=== PATIENT | female | born 1955 | race Caucasian/White ===

== ENCOUNTER 2016-11-06 08:52 | Inpatient (IN) ==
[2016-11-06 12:12] LABS: Basophils # 0.1 K/mcL (0.0-0.2); Basophils % 0.6 %; Eosinophils # 0.2 K/mcL (0.0-0.6); Eosinophils % 2.4 %; Hematocrit 48.8 % (35.3-44.9); Hemoglobin 15.3 g/dL (11.5-15.4); Immature Granulocytes % 0.5 % (0-4); Lymphocytes # 1.8 K/mcL (0.6-4.6); Lymphocytes % 19.8 %; Mean Corpuscular HGB Conc 31.4 g/dL (31.6-35.5); Mean Corpuscular Hemoglobin 29.5 pg (28.0-33.3); Mean Platelet Volume 10.9 fL (9.4-12.4); Monocytes # 0.5 K/mcL (0.0-1.3); Neutrophils # 6.7 K/mcL (1.6-8.9); Platelet Count 202 K/mcL (140-400); Red Blood Count 5.19 M/mcL (3.82-4.97); Red Cell Distribution Width 15.9 % (11.5-14.5); Segmented Neutrophils % 71.7 %
[2016-11-06 12:24] LABS: INR 1.2; Prothrombin Time 12.8 Seconds (9.4-12.1)
[2016-11-06 12:25] LABS: BUN/Creatinine Ratio 19 (6-26); Blood Urea Nitrogen 18 mg/dL (7-20); C-Reactive Protein 32 mg/L (Less than 5); Calcium 9.5 mg/dL (8.6-10.8); Carbon Dioxide 31 mEq/L (19-29); Chloride 107 mEq/L (98-109); Glucose 130 mg/dL (70-99); Osmolality,Calculated 302 (280-300); Potassium 4.7 mEq/L (3.5-4.5); Sodium 144 mEq/L (136-145); eGFR For African Americans > 60 (> 60); eGFR For Non-African Americans 59 (> 60)
[2016-11-06] MEDS ORDERED: Sennosides/Docusate Sodium TABLET PO PRN (12:54)
[2016-11-06] MEDS ORDERED: *HR* Dextrose 50 % in Water (Syg) 50 ML SYRINGE IVP PRN (12:56)
[2016-11-06] MEDS ORDERED: Dextrose Gel 15 GM PO PRN ×2 (12:56)
[2016-11-06] MEDS ORDERED: D5% in Water 1,000 ML IVC PRN (12:56)
--- NOTE | 2016-11-06 13:04 | Internal Medicine Consult Note ---
<Nafisa Davis M - Last Filed: 11/06/16 22:17> Date of Encounter: 11/06/16 Time of Encounter: 13:01 - Assessment and Plan (1) Right foot ulcer Current Visit: Yes Status: Acute Assessment and plan: Dr. Toro plans debridement tomorrow. management per primary service. Qualifiers: Non-pressure ulcer stage: with necrosis of muscle Qualified Code(s): L97.513 - Non-pressure chronic ulcer of other part of right foot with necrosis of muscle (2) Hypertension Current Visit: Yes Status: Acute Assessment and plan: Continue home doses of metoprolol and lasix. Qualifiers: Hypertension type: essential hypertension Qualified Code(s): I10 - Essential (primary) hypertension (3) Diabetes mellitus Current Visit: Yes Status: Chronic Assessment and plan: Contolled as evidenced by Hgb A1c of 7.3% on 10/16/16. Diabetic diet. check blood sugars ACHS sliding scale correction dose ACHS hypoglycemic protocol. 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 Heart has regular rate and rhythm on auscultation. EKG ordered for pre-op. Patient on Metoprolol for rate control and Xarelto for anticoagulation. Patient has been holding Xarelto since 11/04 in preparation for surgery. Continue home dose of metoprolol. Qualifiers: Atrial fibrillation type: paroxysmal Qualified Code(s): I48.0 - Paroxysmal atrial fibrillation (5) Obesity (BMI 30-39.9) Current Visit: No Status: Acute (6) Smoker Current Visit: Yes Status: Acute Assessment and plan: Patient smokes 1/2 PPD. Discussed and encouraged smoking cessation. Patient is not ready to quit at this time, but declined nicotine patch. Smoking cessation education ordered. Internal Medicine - CN: HPI - Data of Consult Patient: known to practice within the last 3 years Requesting Physician: Davie Toro, - Consult Narrative Reason for consult: management of diabetes and other medical conditions History of present illness: Ms. Rascon is a 61 year old female with diabetes, hypertension, hyperlipidemia , atrial fibrillation, congestive heart failure, history of CVA, and diabetic foot ulcer admitted today by Dr. Toro for planned debridement of her right diabetic foot ulcers. Dr. Toro consulted us to manage her diabetes and other medical problems. Patient denies any fever, chills or sweats, chest pain, palpitations, shortness of breath. Labs from today show white blood cell count is normal at 9.3. CRP and ESR are elevated consistent with her foot ulcers on exam, patient is alert and oriented, in no acute distress. Heart has regular rate and rhythm, lungs are clear bilaterally to auscultation, abdomen is soft and nontender. Right lower extremity has significant medial foot ulcer. Past Med Surg Social Fam HX - Past Medical History Medical history: arthritis, atrial fibrillation, CHF, CVA, DVT, diabetes, hyperlipidemia, hypertension, pulmonary embolus Psychiatric history: anxiety, depression - Past Surgical History Surgical History: other - Social History Smoking Status: Current every day smoker (17 pack year history) Packs per day: 0.5 Smokeless Tobacco Status: No Alcohol use: none Drug use: none - Family History Mother Family Member Ethnicity: Non- Twin of Family Member: Yes, Identical Living Status: Hx Family Cardiac Disorders: Yes Hx Family Respiratory Disorders: No Hx Family Cancer: Yes (aunt) Hx Family GI Disorders: Yes Hx Family Endocrine Disorder: Yes Hx Family Neurologic Disorders: Yes Hx Family HEENT Disorders: No Hx Family Autoimmune Disorders: No Father Living Status: Hx Family Cardiac Disorders: Yes Hx Family Endocrine Disorder: Yes (diabetes) Brother Hx Family Endocrine Disorder: Yes (diabetes) - Constitutional Constitutional: no chills, no night sweats, no weakness - EENT Eyes: no change in vision, no loss of vision, no photophobia Nose, mouth and throat: no dry mouth, no mouth pain, no nasal discharge, no sore throat - Cardiovascular Cardiovascular ROS IM: no chest pain, no diaphoresis, no dyspnea, no lightheadedness, no palpitations - Respiratory Respiratory: no cough, no dyspnea, no dyspnea on exertion, no wheezing, no chest congestion - Gastrointestinal Gastrointestinal: no abdominal pain, no diarrhea, no nausea, no vomiting - Genitourinary Genitourinary: no dysuria - Musculoskeletal Musculoskeletal ROS IM: no numbness, no tingling - Integumentary Integumentary IM: skin ulcer (right foot) - Neurological Neurological ROS: memory loss (residual from previous CVA), no confusion, no dizziness, no numbness, no tingling Internal Medicine - CN: Meds Gabapentin [Neurontin] 600 mg PO BID 02/02/15 [History] [place] Oil/[place]-3 Fatty Acids [Fish Oil 500 mg Softgel] 2 cap PO DAILY [History] Atorvastatin [Lipitor] 10 mg PO HS 07/18/15 [History] Furosemide [Lasix] 40 mg PO DAILY 07/18/15 [History] Sertraline [Zoloft] 100 mg PO DAILY 07/18/15 [History] Rivaroxaban [Xarelto] 20 mg PO DAILY 06/03/16 [History] Loratadine [Allergy Relief] 10 mg PO DAILY 06/17/16 [History] Mirtazapine [Remeron] 30 mg PO HS 06/17/16 [History] Albuterol Sulfate [Albuterol Inhaler] 2 puff IH Q6HR PRN 07/31/16 [History] Acetaminophen [Tylenol] 1,000 mg PO Q6HR PRN 11/06/16 [History] Arginine/Glutamine/Calcium Hmb [Nikita Packet] 1 packet PO DAILY 11/06/16 [ History] Ergocalciferol (VITAMIN D2) [Vitamin D2] 50,000 units PO QWEEK 11/06/16 [History ] Insulin LISPRO [Humalog Kwikpen U-100] 2 - 8 unit SQ TID MDD PER SLIDING SCALE 11/06/16 [History] Metoprolol [Lopressor] 100 mg PO BID 11/06/16 [History] Multivitamin,Stress Formula/Zn [Stress B with Zinc Tablet] 1 tab PO DAILY [History] Sennosides/Docusate Sodium [Senna-S Tablet] 1 tab PO BID PRN 11/06/16 [History] Allergies codeine Allergy (Verified 07/26/16 00:49) See Comments Unknown reaction. Paroxetine [From Paxil] Allergy (Verified 07/26/16 00:49) See Comments Unknown reaction. Penicillins Allergy (Verified 07/26/16 00:49) See Comments Unknown reaction. Internal Medicine - CN: Exam - Constitutional Vitals: Temp Pulse Resp BP Pulse Ox 97.9 F 88 17 147/81 95 11/06/16 10:34 11/06/16 10:34 11/06/16 10:34 11/06/16 10:34 11/06/16 10:34 General appearance IM: Present: A&O X 3, morbidly obese, pleasant, no acute distress - Head Head exam: Present: atraumatic, normocephalic - Eye Eye exam: Present: PERRL, conjuntiva pink, sclera anicteric Pupils: Present: PERRL - Neck Neck exam general surgery: Present: supple, trachea midline - Respiratory Respiratory exam: Present: CTAB. Absent: accessory muscle use, prolonged expiratory phase, rhonchi, stridor, wheezes - Cardiovascular Cardiovascular exam IM: Present: RRR, +S1, +S2. Absent: bradycardia, diastolic murmur, systolic murmur, tachycardia - GI/Abdominal GI/Abdominal exam IM: Present: normal bowel sounds, soft. Absent: tenderness, no peritoneal signs - Extremities Exam Extremities exam IM: Present: pedal edema Additional comments: large right foot ulcer on medial aspect and heel. - Neurological Exam Neurological exam: Present: CN II-XII intact, oriented X3, no focal deficits. Absent: facial droop, speech deficit Internal Medicine - CN: Reslt - Labs CBC & Chem 7: 11/06/16 12:02 11/06/16 12:02 Labs: All Lab Results (24 Hours) 11/06/16 11/06/16 11/06/16 Range/Units 12:02 12:02 12:02 WBC 9.3 (4.3-11.1) K/mcL RBC 5.19 H (3.82-4.97) M/mcL Hgb 15.3 (11.5-15.4) g/dL Hct 48.8 H (35.3-44.9) % MCV 94.0 (83.0-100.0) fL MCH 29.5 (28.0-33.3) pg MCHC 31.4 L (31.6-35.5) g/dL RDW 15.9 H (11.5-14.5) % Plt Count 202 (140-400) K/mcL MPV 10.9 (9.4-12.4) fL Immature Gran % 0.5 (0-4) % Seg Neutrophils % 71.7 % Lymphocytes % 19.8 % Monocytes % 5.0 % Eosinophils % 2.4 % Basophils % 0.6 % Neutrophils # 6.7 (1.6-8.9) K/mcL Lymphocytes # 1.8 (0.6-4.6) K/mcL Monocytes # 0.5 (0.0-1.3) K/mcL Eosinophils # 0.2 (0.0-0.6) K/mcL Basophils # 0.1 (0.0-0.2) K/mcL ESR (0-15) mm/hr PT 12.8 H (9.4-12.1) Seconds INR 1.2 Sodium 144 (136-145) mEq/L Potassium 4.7 H (3.5-4.5) mEq/L Chloride 107 (98-109) mEq/L Carbon Dioxide 31 H (19-29) mEq/L BUN 18 (7-20) mg/dL Creatinine 0.96 (0.57-1.11) mg/dL Est GFR ( Amer) > 60 (> 60) Est GFR (Non-Af Amer) 59 L (> 60) BUN/Creatinine Ratio 19 (6-26) Glucose 130 H (70-99) mg/dL Calculated Osmolality 302 H (280-300) Calcium 9.5 (8.6-10.8) mg/dL C-Reactive Protein 32 H (Less than 5) mg/L 11/06/16 Range/Units 12:02 WBC (4.3-11.1) K/mcL RBC (3.82-4.97) M/mcL Hgb (11.5-15.4) g/dL Hct (35.3-44.9) % MCV (83.0-100.0) fL MCH (28.0-33.3) pg MCHC (31.6-35.5) g/dL RDW (11.5-14.5) % Plt Count (140-400) K/mcL MPV (9.4-12.4) fL Immature Gran % (0-4) % Seg Neutrophils % % Lymphocytes % % Monocytes % % Eosinophils % % Basophils % % Neutrophils # (1.6-8.9) K/mcL Lymphocytes # (0.6-4.6) K/mcL Monocytes # (0.0-1.3) K/mcL Eosinophils # (0.0-0.6) K/mcL Basophils # (0.0-0.2) K/mcL ESR 53 H (0-15) mm/hr PT (9.4-12.1) Seconds INR Sodium (136-145) mEq/L Potassium (3.5-4.5) mEq/L Chloride (98-109) mEq/L Carbon Dioxide (19-29) mEq/L BUN (7-20) mg/dL Creatinine (0.57-1.11) mg/dL Est GFR ( Amer) (> 60) Est GFR (Non-Af Amer) (> 60) BUN/Creatinine Ratio (6-26) Glucose (70-99) mg/dL Calculated Osmolality (280-300) Calcium (8.6-10.8) mg/dL C-Reactive Protein (Less than 5) mg/L - ABG Interpretation ABG results: PT/INR, D-dimer PT 12.8 Seconds (9.4-12.1) H 11/06/16 12:02 Consult Discharge Plan - Plan Referrals: Robin Mays MD [Non-Partnered Physician] - 11/13/16 4:30 pm (The appointment will be in [place]. Thank you) <Hermes Martinez T - Last Filed: 11/07/16 07:25> Date of Encounter: 11/07/16 Internal Medicine - CN: HPI - Data of Consult Requesting Physician: Davie Toro, - Consult Narrative History of present illness: Ms. Rascon is a 61 year old female Internal Medicine - CN: Exam - Constitutional Vitals: Temp Pulse Resp BP Pulse Ox 98.2 F 80 16 155/88 92 11/07/16 03:30 11/07/16 03:30 11/07/16 03:30 11/07/16 03:30 11/07/16 03:30 Internal Medicine - CN: Reslt - Labs CBC & Chem 7: 11/06/16 12:02 11/06/16 12:02 Labs: Short CBC 11/06/16 Range/Units 12:02 WBC 9.3 (4.3-11.1) K/mcL Hgb 15.3 (11.5-15.4) g/dL Hct 48.8 H (35.3-44.9) % Plt Count 202 (140-400) K/mcL Neutrophils # 6.7 (1.6-8.9) K/mcL BMP 11/06/16 12:02 Sodium 144 Potassium 4.7 H Chloride 107 Carbon Dioxide 31 H BUN 18 Creatinine 0.96 Glucose 130 H Calcium 9.5 - ABG Interpretation ABG results: PT/INR, D-dimer PT 12.8 Seconds (9.4-12.1) H 11/06/16 12:02 - Attending Attestation Reviewed and discussed with KENDELL Davis Agree with plan
--- NOTE | 2016-11-06 13:20 | Infectious Disease Consult ---
Date of Encounter: 11/06/16 Time of Encounter: 13:16 Assessment and Plan (1) Osteomyelitis Status: Acute Assessment and plan: Location: Right calcaneus. X-ray completed 10/16/16 shows suspected early osteomyelitis. Causative organism E. coli per wound culture obtained 10/16/16, but concern for polymicrobial infection. The patient has been on IV Rocephin at the [facility] since 10/23/16. Clinically, the wound does not appear infected, but apparently there has been some regression of the wound. Dr. Toro plans to take the patient to the OR tomorrow for I & D with possible skin graft placement. Check ESR and CRP. Get blood cultures x 2 sets now. Will defer imaging orders to the podiatry team. Continue wound care and activity restrictions per the podiatry team. The patient does not appear toxic and she has no SIRS criteria. Hold antibiotics until after surgery to get cultures. The patient has already been on IV Rocephin for two weeks, so I am concerned that cultures will not grow anything. Start Vancomycin IV after surgery. Pharmacy to dose. Goal trough approximately 15. Start Cefepime 2 grams IV Q12H after surgery. Duration of treatment depends on the clinical picture. Monitor renal function and for drug toxicity and dose-adjust antibiotics. If the patient becomes febrile or decompensates, start broad spectrum antibiotics. 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 Apparently, the patient was recently recommended to have right BKA due to extent of the ulcers, but patient declined. The patient states she had arterial blood flow testing at [place], which was normal. Will request these records as well operative reports, cultures, etc. Continue wound care as outlined per the podiatry team. Qualifiers: Non-pressure ulcer stage: with necrosis of muscle Qualified Code(s): L97.513 - Non-pressure chronic ulcer of other part of right foot with necrosis of muscle (3) Obesity (BMI 30-39.9) Status: Acute (4) Diabetes mellitus Status: Chronic Assessment and plan: HgbA1c 7.3 on 10/16/16. Recommend aggressive glucose monitoring and control to promote wound healing and prevent re-infection. Qualifiers: Diabetes mellitus type: type 2 Diabetes mellitus complication status: with skin complications Diabetes mellitus complication detail: with foot ulcer Diabetes mellitus fci insulin use: with intermediate frame tender use Qualified Code(s) : E11.621 - Type 2 diabetes mellitus with foot ulcer; L97.509 - Non-pressure chronic ulcer of other part of unspecified foot with unspecified severity; Z79.4 - half-way (current) use of insulin (5) Atrial fibrillation Status: Chronic Qualifiers: Atrial fibrillation type: paroxysmal Qualified Code(s): I48.0 - Paroxysmal atrial fibrillation Infectious Disease HPI - Data of Consult Patient: new to practice Consult date: 11/06/16 Requesting Physician: Davie Toro, Primary Care Provider: PCP NO - Consult Narrative Reason for consult: Right foot DFU History of present illness: Ms. Rascon is a 61 year old female with a past medical history of diabetes, nephritis, DVT, hyperlipidemia, hypertension, pulmonary embolus, anxiety, and depression. The patient was admitted to the hospital November 06 for right foot diabetic foot ulcers. We are consulted November 06 for further evaluation and treatment recommendations regarding right foot ulcers. Patient's a 61-year-old female with past medical history as stated above. The patient states that she developed an ulcer to the right great toe back in July and subsequently developed gangrene. She states she was evaluated at [facility] and underwent a right great toe amputation. She states since then, she has developed worsening of the surgical site and nonhealing and developed an ulcer to the right heel. She states she's had 2 subsequent debridements at [facility] with antibiotic therapy, but the wounds continue to regress and will not heal. She states at her last visit at [place], they recommended a right BKA and she was not agreeable to this so she sought out a second opinion. She was first seen by Dr. Boo in the [place] wound clinic and subsequent follow-up with Dr. Toro last week. An x-ray completed on October 30 showed suspected early osteomyelitis of the left calcaneus. The patient was directed to come back to the hospital today for direct admission and surgery tomorrow. A wound culture obtained from the wound clinic on October 16 was positive for Escherichia coli and the patient was started on IV Rocephin on 10/23/16. She currently stays at a local extended care facility. She is not currently been started on any antibiotics since being admitted to the hospital. We've asked to evaluate and make further recommendations. During my exam today, the patient states she has been afebrile and denies any chills or rigors. She denies any headache or neck pain. She denies any chest pain, shortness of breath, or cough. She denies any nausea, vomiting, diarrhea, or constipation. She denies any pain in the affected foot. She states that there is minimal drainage. She denies abdominal pain or appetite changes. She denies any urinary complaints. She states she is unsure what her blood sugars have been running at the [facility]. He does tell me that she had arterial blood flow studies completed back in July at [facility] and was told they were normal. CC: Davie Toro, Past Med Surg Social Fam HX - Past Medical History Attestation: Yes The following information was validated with the patient. Source: patient, old records reviewed, nursing notes reviewed Medical history: arthritis, DVT, diabetes, hyperlipidemia, hypertension, pulmonary embolus Psychiatric history: anxiety, depression - Past Surgical History Surgical History: other (Left foot TMA secondary to infection) - Social History Smoking Status: Current every day smoker Smokeless Tobacco Status: No Alcohol use: none Drug use: none - Family History Mother Family Member Ethnicity: Non- Twin of Family Member: Yes, Identical Living Status: Hx Family Cardiac Disorders: Yes Hx Family Respiratory Disorders: No Hx Family Cancer: Yes (aunt) Hx Family GI Disorders: Yes Hx Family Endocrine Disorder: Yes Hx Family Neurologic Disorders: Yes Hx Family HEENT Disorders: No Hx Family Autoimmune Disorders: No Father Living Status: Hx Family Cardiac Disorders: Yes Hx Family Endocrine Disorder: Yes (diabetes) Brother Hx Family Endocrine Disorder: Yes (diabetes) Infectious Disease-CN:Meds Gabapentin [Neurontin] 600 mg PO BID 02/02/15 [History] [place] Oil/[place]-3 Fatty Acids [Fish Oil 500 mg Softgel] 2 cap PO DAILY [History] Atorvastatin [Lipitor] 10 mg PO HS 07/18/15 [History] Furosemide [Lasix] 40 mg PO DAILY 07/18/15 [History] Sertraline [Zoloft] 100 mg PO DAILY 07/18/15 [History] Rivaroxaban [Xarelto] 20 mg PO DAILY 06/03/16 [History] Loratadine [Allergy Relief] 10 mg PO DAILY 06/17/16 [History] Mirtazapine [Remeron] 30 mg PO HS 06/17/16 [History] Albuterol Sulfate [Albuterol Inhaler] 2 puff IH Q6HR PRN 07/31/16 [History] Acetaminophen [Tylenol] 1,000 mg PO Q6HR PRN 11/06/16 [History] Arginine/Glutamine/Calcium Hmb [Nikita Packet] 1 packet PO DAILY 11/06/16 [ History] Ergocalciferol (VITAMIN D2) [Vitamin D2] 50,000 units PO QWEEK 11/06/16 [History ] Insulin LISPRO [Humalog Kwikpen U-100] 2 - 8 unit SQ TID MDD PER SLIDING SCALE 11/06/16 [History] Metoprolol [Lopressor] 100 mg PO BID 11/06/16 [History] Multivitamin,Stress Formula/Zn [Stress B with Zinc Tablet] 1 tab PO DAILY [History] Sennosides/Docusate Sodium [Senna-S Tablet] 1 tab PO BID PRN 11/06/16 [History] Allergies codeine Allergy (Verified 07/26/16 00:49) See Comments Unknown reaction. Paroxetine [From Paxil] Allergy (Verified 07/26/16 00:49) See Comments Unknown reaction. Penicillins Allergy (Verified 07/26/16 00:49) See Comments Unknown reaction. All systems: reviewed and no additional remarkable complaints except as stated Exam - Constitutional Vitals: Temp Pulse Resp BP Pulse Ox 97.9 F 88 17 147/81 95 11/06/16 10:34 11/06/16 10:34 11/06/16 10:34 11/06/16 10:34 11/06/16 10:34 General appearance: cooperative, no acute distress, obese - Head Head exam: Present: atraumatic, normal inspection, normocephalic - Eye Eye exam: Present: EOMI, normal appearance, PERRL Pupils: Present: normal accommodation - ENT ENT exam: Present: mucous membranes moist - Neck Neck exam: Present: normal inspection - Respiratory Respiratory exam: Present: CTAB. Absent: rales, respiratory distress, rhonchi, wheezes - Cardiovascular Cardiovascular exam: Present: irregular rhythm. Absent: tachycardia - GI/Abdominal GI/Abdominal exam: Present: distended (obese), normal bowel sounds, soft. Absent: tenderness - Extremities Exam Extremities exam: Present: pedal edema (1+ RLE). Absent: joint swelling, tenderness Additional comments: Ulcer noted to the right great toe site 9cm x 3cm x 1cm deep with 20% fibrin and 80% granulation tissue. Ulcer noted to the medial plantar aspect of the right foot 0.5cm x 0.5cm x 0.5cm deep with approximately 80% slough and 20% granulation. Ulcer noted to the right heel 5cm x 6cm x 1.5cm deep with 10% slough and 90% granulation tissue. Serous drainage noted from all wounds. No purulence or erythema noted. No tenderness noted. No foul odor noted. - Neurological Exam Neurological exam: Present: alert, oriented X3, no focal deficits - Psychiatric Psychiatric exam: Present: normal affect, normal mood - Skin Skin exam: Present: dry, intact, normal color, warm - Additional findings Additional findings: PICC line noted to the RUE with transparent dressing C/D/I. Infectious Disease CN: Results - Labs CBC & Chem 7: 11/06/16 12:02 11/06/16 12:02 Consult Discharge Plan - Plan Referrals: Robin Mays MD [Non-Partnered Physician] - 11/13/16 4:30 pm (The appointment will be in [place]. Thank you) - Attending Attestation I examined this patient and my medical decision-making was reviewed with the JDE DEVELOPER/PA/Advanced Practice Nurse/Resident Physician. I agree with the documented findings, disposition and treatment plan as described except to the extent set forth below. Jo Ann addendum to report dictated by Sulma Otto CNP. Please refer to Sulma delgado note for full details. Patient is a 61-year-old woman direct admitted by Dr. Toro for nonhealing diabetic foot ulcer and concern for deeper infection. Apparently patient has been having this nonhealing wound ulcer for quite some time area patient was seen at an outlying facility and was told she needed an amputation. Patient followed up with Dr. Toro who is trying to salvage her foot since she really hasnt transmit AMPUTATION other. Patient was started on Rocephin as an outpatient. Previous wound culture on 10/16/16 was positive for Escherichia coli . X-ray on the patient showed possible early osteomyelitis. Patient also has a history of MRSA back in 2014. An x-ray of the foot was done on 10/16/2016 which revealed large soft tissue ulcer involving the plantar aspect of the heel with suspected early osteomyelitis of the underlying calcaneus. A shunt was admitted for surgical intervention and aggressive I&D. At this point patient appears comfortable laying in bed and does not appear toxic. Vital signs are stable with no surface criteria. I recommend stopping all antibiotics and observing. Await to see what we find intraoperatively tomorrow and hopefully get intraoperatively cultures. In the meantime check baseline labs including inflammatory markers prior to surgery. We ll continue to follow closely.
[2016-11-06] MEDS: Insulin LISPRO 300 UNITS/3 ML VIAL SQ SCH ×2 (17:03→22:21)
--- NOTE | 2016-11-06 17:30 | Podiatry History & Physical ---
History of Present Illness HPI: Ms. Rascon is a 61 year old female admitted today per Dr. Toro after visit at wound care clinic. Patient has known history of diabetes, hypertension, hyperlipidemia, atrial fibrillation, congestive heart failure, history of CVA, and diabetic foot ulcer. Patient was treated at [facility] for debridement of non healing diabetic ulcers. They recommended a right BKA at that time. Patient left [place] at that time and has been in long-term care. Patient is now with Dr. Toro in the wound care clinic after seeking second opinion. She was admitted today with plans to take patient to OR tomorrow for wound debridement of right foot ulcers. Patient denies any pain at this time. Patient states she continues to smoke every 2 hours at halfway. Patient denies any fevers, chills, nausea vomiting, or flulike symptoms. Labs show normal white count at 9.3 CRP and ESR are elevated consistent with her foot ulcers. Alert and oriented. Patient has foot ulceration to medial aspect of right foot as well as right heel. She is status post amputation of toe #1 right foot. Patient has minimal sensation to right foot. Patient states wound looks slightly better than what it began. Patient is noncompliant with smoking cessation. Glucose is not well controlled All Systems Reviewed: A 10-system review of systems was performed and is negative for pertinent findings except as documented above in the HPI. Past Med Surg Social Fam HX - Past Medical History Medical history: arthritis, DVT, diabetes, hyperlipidemia, hypertension, pulmonary embolus Psychiatric history: anxiety, depression - Past Surgical History Surgical History: other (Left foot TMA secondary to infection) - Social History Smoking Status: Current every day smoker Packs per day: 0.5 Smokeless Tobacco Status: No Alcohol use: none Drug use: none - Family History Mother Family Member Ethnicity: Non- Twin of Family Member: Yes, Identical Living Status: Hx Family Cardiac Disorders: Yes Hx Family Respiratory Disorders: No Hx Family Cancer: Yes (aunt) Hx Family GI Disorders: Yes Hx Family Endocrine Disorder: Yes Hx Family Neurologic Disorders: Yes Hx Family HEENT Disorders: No Hx Family Autoimmune Disorders: No Father Living Status: Hx Family Cardiac Disorders: Yes Hx Family Endocrine Disorder: Yes (diabetes) Brother Hx Family Endocrine Disorder: Yes (diabetes) Medications and Allergies Gabapentin [Neurontin] 600 mg PO BID 02/02/15 [History] [place] Oil/[place]-3 Fatty Acids [Fish Oil 500 mg Softgel] 2 cap PO DAILY [History] Atorvastatin [Lipitor] 10 mg PO HS 07/18/15 [History] Furosemide [Lasix] 40 mg PO DAILY 07/18/15 [History] Sertraline [Zoloft] 100 mg PO DAILY 07/18/15 [History] Rivaroxaban [Xarelto] 20 mg PO DAILY 06/03/16 [History] Loratadine [Allergy Relief] 10 mg PO DAILY 06/17/16 [History] Mirtazapine [Remeron] 30 mg PO HS 06/17/16 [History] Albuterol Sulfate [Albuterol Inhaler] 2 puff IH Q6HR PRN 07/31/16 [History] Acetaminophen [Tylenol] 1,000 mg PO Q6HR PRN 11/06/16 [History] Arginine/Glutamine/Calcium Hmb [Nikita Packet] 1 packet PO DAILY 11/06/16 [ History] Ergocalciferol (VITAMIN D2) [Vitamin D2] 50,000 units PO QWEEK 11/06/16 [History ] Insulin LISPRO [Humalog Kwikpen U-100] 2 - 8 unit SQ TID MDD PER SLIDING SCALE 11/06/16 [History] Metoprolol [Lopressor] 100 mg PO BID 11/06/16 [History] Multivitamin,Stress Formula/Zn [Stress B with Zinc Tablet] 1 tab PO DAILY [History] Sennosides/Docusate Sodium [Senna-S Tablet] 1 tab PO BID PRN 11/06/16 [History] Allergies codeine Allergy (Verified 07/26/16 00:49) See Comments Unknown reaction. Paroxetine [From Paxil] Allergy (Verified 07/26/16 00:49) See Comments Unknown reaction. Penicillins Allergy (Verified 07/26/16 00:49) See Comments Unknown reaction. Physical Exam - Constitutional Vitals: Temp Pulse Resp BP Pulse Ox 98.5 F 75 17 147/88 99 11/06/16 15:29 11/06/16 15:29 11/06/16 15:29 11/06/16 15:29 11/06/16 15:29 General appearance: cooperative, no acute distress, obese Exam: General Examination: CONSTITUTIONAL: Alert, oriented, in no acute distress, non-toxic. EXTREMITIES: CFT 4-5 seconds. Edema +1 and pedal pulses non palpable SKIN: Skin with decreased turgor, decreased subcutaneous tissue, skin thin and shiny with trophic changes associated with comorbidities as described in history.. NEUROLOGIC: Minimal sensation to light touch- loss of protective sensation Wound #1 right great toe diabetic full-thickness. wound beefy red in appearance and yellow slough tissue is noted. Surrounding temperature is warm scant amount of serosanguineous drainage noted, no odor. Wound measures 9 cm in length was 3 cm in width and 1.2 cm in depth. there is a wound to the right medial plantar aspect of right foot diabetic full thickness wound yellow fibrous slough tissue noted. minimal granulation tissue. warm. There is a small amount of serous drainage. There is no odor. Wound measures 0.5 cm in length 0.5 cm in width and 0.2 cm in depth. There is a wound to the medial right heel. This is a diabetic full thickness wound. There is presence of beefy red granulation tissue as well as yellow fibrous slough. No odor. Scant amount of serosanguineous drainage. Wound measures 5.5 cm in length by 0.8 cm and with an 1.5 cm in depth there is wound undermining noted at 6 to 7:00 it measuring about 1.7 cm. There is no extensive edema or erythema surrounding wounds. - Expanded Lower Extremities Exam Foot/Toe exam: Present: amputation 1 - wound #1 2 - amputation of digit 1 - wound #2 Results - Labs Result Diagrams: 11/06/16 12:02 11/06/16 12:02 Labs: Abnormal lab results RBC 5.19 M/mcL (3.82-4.97) H 11/06/16 12:02 Hct 48.8 % (35.3-44.9) H 11/06/16 12:02 MCHC 31.4 g/dL (31.6-35.5) L 11/06/16 12:02 RDW 15.9 % (11.5-14.5) H 11/06/16 12:02 ESR 53 mm/hr (0-15) H 11/06/16 12:02 PT 12.8 Seconds (9.4-12.1) H 11/06/16 12:02 Potassium 4.7 mEq/L (3.5-4.5) H 11/06/16 12:02 Carbon Dioxide 31 mEq/L (19-29) H 11/06/16 12:02 Est GFR (Non-Af Amer) 59 (> 60) L 11/06/16 12:02 Glucose 130 mg/dL (70-99) H 11/06/16 12:02 Calculated Osmolality 302 (280-300) H 11/06/16 12:02 C-Reactive Protein 32 mg/L (Less than 5) H 11/06/16 12:02 H & H 11/06/16 Range/Units 12:02 Hgb 15.3 (11.5-15.4) g/dL Hct 48.8 H (35.3-44.9) % All other labs normal. Assessment and Plan (1) Right foot ulcer Current visit: Yes Status: Acute Plan for I&D and OR tomorrow. Qualifiers: Non-pressure ulcer stage: with necrosis of muscle Qualified Code(s): L97.513 - Non-pressure chronic ulcer of other part of right foot with necrosis of muscle (2) Smoker Current visit: Yes Status: Acute Medical management. Encouraged smoke cessation. (3) Atrial fibrillation Current visit: Yes Status: Chronic medical Management Qualifiers: Atrial fibrillation type: paroxysmal Qualified Code(s): I48.0 - Paroxysmal atrial fibrillation (4) Diabetes mellitus Current visit: Yes Status: Chronic Medical management Qualifiers: Diabetes mellitus type: type 2 Diabetes mellitus complication status: with skin complications Diabetes mellitus complication detail: with foot ulcer Diabetes mellitus superintendent terminal insulin use: with superintendent terminal use Qualified Code(s) : E11.621 - Type 2 diabetes mellitus with foot ulcer; L97.509 - Non-pressure chronic ulcer of other part of unspecified foot with unspecified severity; Z79.4 - prison (current) use of insulin (5) Cellulitis and abscess of foot Current visit: No Status: Acute Admitted and assessed at bedside today Will plan to take to OR tomorrow with for active wound debridement Recent CHIN show : Right: Able to obtain a right ankle brachial index due to noncompressible vessels. Unable to obtain a Doppler waveform and pressure of right DP and right great toe due to open wounds Left 1.17 Consult to vascular for evaluation prior to surgery. Spoke with the [facility] at 1730. We will see in a.m. Patient to be nothing by mouth after midnight Please place., Adaptic 4 x 4's and Kerlix to wound for protection Consult to internal medicine for medical management. Consult to infectious disease for management of IV antibiotic therapy. Patient has been on outpatient Rocephin therapy. ID currently recommended to hold antibiotics until after surgery.
--- NOTE | 2016-11-06 18:44 | Vascular/Endovasc Consult Note ---
Date of Encounter: 11/06/16 Time of Encounter: 18:00 Assessment and Plan (1) Atherosclerosis of [place] artery of both lower extremities with bilateral ulceration Current Visit: Yes Status: Chronic The pathophsyiology and natural history of peripheral vascular disease was discussed with the patient and all questions were answered. The patient reports that she has had chronic foot ulcerations. She has been treated at the wound center by Dr. Boo and Dr. Toro. The patient reportedly has noncompressible tibial vessels likely due to diabetes. She has a diminished pulse exam. She has a large right medial forefoot and right ulcer. There is no purulanece, fluctuance or significant erythema present. Angiography with possible intervention has been recommended. The risks, benefits and alternatives were discussed and all questions were answered. She expresed understanding and wishes to proceed. Given the extent of her ulcerations, she was advised that limb salvage may not be possible and that amputation may be required. She expressed understanding and states that she has consider it as a possibility. Qualifiers: Lower extremity ulceration location: other part of foot Qualified Code(s): I70.235 - Atherosclerosis of [place] arteries of right leg with ulceration of other part of foot; I70.245 - Atherosclerosis of [place] arteries of left leg with ulceration of other part of foot (2) Tobacco abuse Current Visit: Yes Status: Chronic She was counseled regarding smoking cessation. She was informed that continued smoking will likely result in limb loss. - History of Present Illness Consult date: 11/06/16 Requesting physician: Lisa Espitia Consult reason: Peripheral vascular disease Chief complaint: left foot chronic ulcerations History of present illness: Ms. Rascon is a 61 year old female with a history of hypertension, diabetes, atrial fibrillation and tobacco abuse. She reports a long history of peripheral vascular disease with ulceration. The patient reports that she has been seen in the wound center by Dr. Boo and Dr. Toro for management of her chronic ulcers. She has required multiple debridements. She reports that she was admitted to [facility] recently and an amputation was recommended. She reprots that since her discharge, her foot has looked and felt better. She reports extensive debridement and persistent ulceration. She currently has large ulcer on her right medial forefoot and on her right ankle. Due to the degree of disease, vascular surgery was consulted for further evaluation. She patient currently denies rest pain. She denies fevers or chills. She denies chest pain or shortness of breath. Past Med Surg Social Fam HX - Past Medical History Medical history: arthritis, DVT, diabetes, hyperlipidemia, hypertension, pulmonary embolus Psychiatric history: anxiety, depression - Past Surgical History Surgical History: other (Left foot TMA secondary to infection) - Social History Smoking Status: Current every day smoker Packs per day: 0.5 Smokeless Tobacco Status: No Alcohol use: none Drug use: none - Family History Mother Family Member Ethnicity: Non- Twin of Family Member: Yes, Identical Living Status: Hx Family Cardiac Disorders: Yes Hx Family Respiratory Disorders: No Hx Family Cancer: Yes (aunt) Hx Family GI Disorders: Yes Hx Family Endocrine Disorder: Yes Hx Family Neurologic Disorders: Yes Hx Family HEENT Disorders: No Hx Family Autoimmune Disorders: No Father Living Status: Hx Family Cardiac Disorders: Yes Hx Family Endocrine Disorder: Yes (diabetes) Brother Hx Family Endocrine Disorder: Yes (diabetes) Medications and Allergies Gabapentin [Neurontin] 600 mg PO BID 02/02/15 [History] [place] Oil/[place]-3 Fatty Acids [Fish Oil 500 mg Softgel] 2 cap PO DAILY [History] Atorvastatin [Lipitor] 10 mg PO HS 07/18/15 [History] Furosemide [Lasix] 40 mg PO DAILY 07/18/15 [History] Sertraline [Zoloft] 100 mg PO DAILY 07/18/15 [History] Rivaroxaban [Xarelto] 20 mg PO DAILY 06/03/16 [History] Loratadine [Allergy Relief] 10 mg PO DAILY 06/17/16 [History] Mirtazapine [Remeron] 30 mg PO HS 06/17/16 [History] Albuterol Sulfate [Albuterol Inhaler] 2 puff IH Q6HR PRN 07/31/16 [History] Acetaminophen [Tylenol] 1,000 mg PO Q6HR PRN 11/06/16 [History] Arginine/Glutamine/Calcium Hmb [Nikita Packet] 1 packet PO DAILY 11/06/16 [ History] Ergocalciferol (VITAMIN D2) [Vitamin D2] 50,000 units PO QWEEK 11/06/16 [History ] Insulin LISPRO [Humalog Kwikpen U-100] 2 - 8 unit SQ TID MDD PER SLIDING SCALE 11/06/16 [History] Metoprolol [Lopressor] 100 mg PO BID 11/06/16 [History] Multivitamin,Stress Formula/Zn [Stress B with Zinc Tablet] 1 tab PO DAILY [History] Sennosides/Docusate Sodium [Senna-S Tablet] 1 tab PO BID PRN 11/06/16 [History] Allergies codeine Allergy (Verified 07/26/16 00:49) See Comments Unknown reaction. Paroxetine [From Paxil] Allergy (Verified 07/26/16 00:49) See Comments Unknown reaction. Penicillins Allergy (Verified 07/26/16 00:49) See Comments Unknown reaction. All Systems Review: A 10-system review of systems was performed and is negative for pertinent findings except as documented above in the HPI. - Constitutional Constitutional: no chills, no fever(s) - Cardiovascular Cardiovascular: no chest pain at rest, no chest pain with exertion, no dyspnea at rest, no dyspnea on exertion Exam Vital Signs, Last 4 Hours Temp Pulse Resp BP Pulse Ox 11/06/16 15:29 98.5 F 75 17 147/88 99 General: Present: Conversant, No Apparent Distress HEENT: Present: Atraumatic, Normocephaly, Trachea midline, Pupils equal Neck: Absent: JVD, Lymphadenopathy, Left Carotid bruit, Right Carotid bruit Cardiac: Present: No Murmur, Irregular Rhythm Lungs: Present: Normal Breath Sounds, No Wheeze, Rales, Rhonchi Neuro: Present: Alert and responsive, No focal deficits noted, Motor nerves grossly intact, Sensory nerves grossly intact Abdomen: Present: Soft, Non-tender. Absent: Masses Vascular: Present: Pulse, absent (bilateral feet), Edema (trace bilateral lower extremity), Amputation(s) (right great toe). Absent: Cyanosis Skin: Present: Wound/ulcer(s) (right medial forefoot and right heel, left ankle) Consult Discharge Plan - Plan Referrals: Robin Mays MD [Non-Partnered Physician] - 11/13/16 4:30 pm (The appointment will be in [place]. Thank you)
[2016-11-06] MEDS: Gabapentin 300 MG CAPSULE PO SCH (18:55)
[2016-11-06] MEDS ORDERED: Gabapentin 300 MG CAPSULE PO SCH (21:00)
[2016-11-06] MEDS: Mirtazapine 15 MG TABLET PO SCH (22:21)
[2016-11-07] MEDS: Insulin LISPRO 300 UNITS/3 ML VIAL SQ SCH ×4 (06:55→20:50)
[2016-11-07] MEDS: Loratadine 10 MG TABLET PO SCH (08:45)
[2016-11-07] MEDS: Gabapentin 300 MG CAPSULE PO SCH ×2 (08:45→20:50)
[2016-11-07] MEDS: Furosemide 40 MG TABLET PO SCH (08:45)
[2016-11-07] MEDS ORDERED: (Salmon Oil/Omega-3 Fatty Acids [Fish Oil 500 Mg Soft PO SCH (09:00)
[2016-11-07] MEDS: Insulin DETEMIR 100 UNIT/ML X5UNITS SQ SCH ×2 (12:20→20:49)
[2016-11-07] MEDS: Multivit/Ca/Min/Fe/FA 1 TAB TABLET PO SCH (12:59)
[2016-11-07] MEDS ORDERED: *HR* Heparin 10,000 UNIT/10 ML VIAL ONE (13:07)
[2016-11-07] MEDS ORDERED: Heparin 1,000 UNITS/500 mL NS 500 ML ONE (13:07)
[2016-11-07] MEDS ORDERED: 0.9 % Sodium Chloride 1,000 ML ONE ×2 (13:07→13:31)
[2016-11-07] MEDS ORDERED: *HR* FentaNYL (PF) 100 MCG/2 ML VIAL ONE ×2 (13:31→13:32)
[2016-11-07] MEDS ORDERED: *HR* Midazolam HCl 2 MG/2 ML VIAL ONE ×2 (13:31→13:32)
[2016-11-07] MEDS ORDERED: *HR* Propofol 200 MG/20 ML VIAL IVP ONE (13:32)
[2016-11-07] MEDS ORDERED: Lidocaine -MPF 2% 2 ML VIAL ONE (13:32)
--- NOTE | 2016-11-07 13:43 | Pre-Sedation Evaluation ---
Pre-sedation evaluation - Pre-sedation checklist Date of procedure: 11/07/16 Procedure: arterial studies Recent Vitals: Last Vital Signs Temp 98.4 F 11/07/16 11:00 Pulse 76 11/07/16 11:00 Resp 17 11/07/16 11:00 BP 113/73 11/07/16 11:00 Pulse Ox 95 11/07/16 11:00 Previous reaction to sedatives/anesthetics: No Dietary Status: NPO after Midnight Dentition: No loose teeth or bridges ASA Classification *see protocol: CLASS III-Severe systemic disease Plan of Care: Pt appropriate candidate for procedure/moderate/conscious sedation , Risks/benefits of procedure/sedation discussed w/ patient/family
--- NOTE | 2016-11-07 15:22 | Procedure Note ---
Date of procedure: 11/07/16 Pre-op diagnosis: Peripheral vascular disease with ulceration Post-op diagnosis: same Procedure: Angiogram with right posterior tibial artery angioplasty with 3 x 20mm balloon via 4 bengali sheath. Anesthesia: local, IV sedation (moderate conscious sedation) Surgeon: Carlitos Kat Estimated blood loss (cc): 1 Pathology: none sent Condition: stable (No complications) Disposition: floor
--- NOTE | 2016-11-07 16:18 | Internal Med Progress Note ---
Date of Encounter: 11/07/16 Time of Encounter: 09:00 - Assessment and plan (1) Osteomyelitis Current Visit: Yes Status: Acute Assessment and plan: Possibly subacute osteomyelitis of right calcaneus. Plan for surgical debridement, incision and drainage per primary team. Infectious diseases on board. Recommend no antibiotics until foot surgery, IV vancomycin and cefepime to be initiated after operative cultures are obtained. Follow-up blood cultures. Supportive care. Qualifiers: Osteomyelitis type: other Osteomyelitis location: foot Laterality: right Qualified Code(s): M86.8X7 - Other osteomyelitis, ankle and foot (2) Atherosclerosis of [place] artery of both lower extremities with bilateral ulceration Current Visit: Yes Status: Chronic Assessment and plan: Patient is known to have peripheral arterial disease in bilateral lower extremities. Vascular surgery consulted, possible plan for angiogram and angioplasty of right lower extremity. Qualifiers: Lower extremity ulceration location: other part of foot Qualified Code(s): I70.235 - Atherosclerosis of [place] arteries of right leg with ulceration of other part of foot; I70.245 - Atherosclerosis of [place] arteries of left leg with ulceration of other part of foot (3) Chronic kidney disease Current Visit: Yes Status: Chronic Assessment and plan: Patient possibly has chronic kidney disease secondary to diabetic nephropathy. Review of previous labs show serum creatinine around 1.2. Currently at baseline. Continue to monitor closely and dose antibiotics according to current creatinine clearance. Qualifiers: Chronic kidney disease stage: stage 3 (moderate) Qualified Code(s): N18.3 - Chronic kidney disease, stage 3 (moderate) (4) Diabetes mellitus Current Visit: Yes Status: Chronic Assessment and plan: Noted to be well controlled with hemoglobin A1c 7.3% continue Accu-Chek blood glucose monitoring with basal bolus insulin regimen. Diabetic diet after surgery. 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 Noted to be on long-term anticoagulation with Pradaxa, currently held in anticipation of foot surgery. We will restart after the procedure. Qualifiers: Atrial fibrillation type: paroxysmal Qualified Code(s): I48.0 - Paroxysmal atrial fibrillation (6) Chronic venous hypertension (idiopathic) with ulcer of left lower extremity Current Visit: Yes Status: Chronic (7) Hypertension Current Visit: Yes Status: Chronic Assessment and plan: Blood pressure noted to be well controlled. Continue home medications. Qualifiers: Hypertension type: essential hypertension Qualified Code(s): I10 - Essential (primary) hypertension (8) Tobacco abuse Current Visit: Yes Status: Chronic - Subjective Interval history: Reports feeling well. Has been having issues with right foot wounds for the last few months, had multiple admissions at the [facility] in [place] and has been discharged to nursing facility last month. She is awaiting debridement of right foot ulcer by podiatry. Denies pain, dyspnea, fever/chills , nausea or vomiting. - Constitutional Vitals: Temp Pulse Resp BP Pulse Ox 98.4 F 76 17 113/73 95 11/07/16 11:00 11/07/16 11:00 11/07/16 11:00 11/07/16 11:00 11/07/16 11:00 General appearance: Present: A&O X 3, answers questions appropriately - Respiratory Respiratory exam: Present: CTAB. Absent: accessory muscle use, rales, rhonchi, wheezes - Cardiovascular Cardiovascular exam: Present: RRR, +S1, +S2. Absent: diastolic murmur, gallop, rubs, systolic murmur - GI/Abdominal GI/Abdominal exam: Present: normal bowel sounds, soft, no peritoneal signs. Absent: distended, tenderness - Extremities Exam Extremities exam: Present: warm, radial pulses palpable and symetrical. Absent : calf tenderness, cyanotic, pedal edema Internal Medicine: Result - Labs CBC & Chem 7: 11/06/16 12:02 11/06/16 12:02 - ABG Interpretation ABG results: PT/INR, D-dimer PT 12.8 Seconds (9.4-12.1) H 11/06/16 12:02 Consult Discharge Plan - Plan Referrals: Robin Mays MD [Non-Partnered Physician] - 11/13/16 4:30 pm (The appointment will be in [place]. Thank you)
--- NOTE | 2016-11-07 16:30 | Invasive Diagnostic Lab ---
Name: Geovanna Rascon Date of Study: 11/07/2016 Date: 1955 Ht: 160.0 in Medical Record#: [id number] Age: 61 Wt: 103 lb Gender: Female BSA: 2.04 Order #: [id number] Fluoro: 388 mGy BMI: 40.23 Procedure MD: Carlitos Kat MD Referring MD: None Procedures Performed: AORTOGRAPHY, ABDOMINAL S\T\I AORTOGRAPHY EXT Bilat S\T\I Add'l Complete exam TIB/PER REVASC W/TLA Indications: Peripheral Vascular Disease with Ulceration Nonhealing right foot ulcer Impressions: Th bilateral renal arteries are patent. The aorta and bilateral iliac arteries are patent without stenosis. The bilateral superficial femoral arteries are patent without stenosis. The bilateral anterior tibial and peroneal arteries are patent without stenosis. The proximal right posterior tibial artery had a 95% stenosis that was successfully treated with a 3 x 20mm balloon. The right posterior tibial artery is occluded at the ankle. The left posterior tibial artery is occluded. No complications. Recommendations: Atherosclerotic risk factor reduction. Daily Plavix. Follow-up in vascular clinic. History/ Risk Factors: Technique: The patient was identified in the preoperative area and taken to the catheterization lab. The patient was prepped and draped in the normal sterile fashion. After the timeout procedure was performed, local anesthetic was infused over the left groin. Under ultrasound guidance, the left common femoral artery was cannulated with a large bore needle. A Hidden Radioson wire was advanced though the needle into the aorta under fluoroscopic view. The needle was exchanged for a 4 [place] sheath and an omniflush catheter was advanced into the suprarenal aorta. The wire was removed and an abdominal aortagram was performed. The catheter was then withdrawn to the aortic bifurcation and a bilateral lower extremity angiogram was then performed. The right common iliac artery was selected with a catheter and a wire was advanced into the right superficial femoral artery. The catheter was then advanced over the wire into the right common femoral artery and additional selective imaging was then performed to further evaluate the right femoral vessels. The wire was then advanced into the right deep femoral artery. The 4 [place] sheath was exchanged over a wire for a 4 [place] long sheath. The tip of the sheath was positioned in the right superficial femoral artery. A selective image was then performed to further evaluate the right posterior tibial artery lesion. A wire was advanced into the right superficial femoral artery and a crossing catheter was used to traverse the right posterior tibial artery stenosis. An angiogram then confirmed successful crossing of the lesion. The patient received 3000 units of heparin through the sheath. A 3 x 20mm balloon was advanced over the wire and an angioplasty was performed. Mulitple inflations were required. A completion angiogram revealed no residual stenosis. The ACT was elevated so the sheath was left in place. The patient was then taken to the holding area in stable condition. Vessel Findings: * Abdominal Arteries The Right internal iliac is angiographically free of disease. The Right external iliac is angiographically free of disease. The Left internal iliac is angiographically free of disease. The Left external iliac is angiographically free of disease. The Left renal is angiographically free of disease. The Right renal is angiographically free of disease. The Abd. aorta infrarenal is angiographically free of disease. The Right common iliac is angiographically free of disease. The Left common iliac is angiographically free of disease. * Lower Extremity Arteries The Right ant.tibial is angiographically free of disease. The Right dorsal pedal is angiographically free of disease. The Left dorsal pedal is angiographically free of disease. The Right Femoral is angiographically free of disease. The Right superficial femoral is angiographically free of disease. The Right popliteal is angiographically free of disease. The Right tibioperoneal trunk is angiographically free of disease. The Right peroneal is angiographically free of disease. The Left Femoral is angiographically free of disease. The Left superficial femoral is angiographically free of disease. The Left popliteal is angiographically free of disease. The Left tibioperoneal trunk is angiographically free of disease. The Left ant. tibial is angiographically free of disease. The Left peroneal is angiographically free of disease. There is a lesion present with 100% stenosis, in the Distal Right Post. Tibial. No intervention was performed on this Lesion. There is a lesion present with 95% stenosis, in the Proximal Right Post. Tibial. An intervention was performed on the Right Post. Tibial, with a final stenosis of 0%. There were no complications in the vessel segment during the procedure. There is a lesion present with 100% stenosis, in the Left Post. Tibial. The lesion is diffusely diseased. No intervention was performed on this Lesion. Lesions: Distal Right Post. Tibial Stenosis: 100% Proximal Right Post. Tibial Stenosis: 95% Residual Stenosis: 0% Left Post. Tibial Stenosis: 100% Total Contrast: Isovue 250- 150ml 94mls Hemodynamic Data Site Location Systolic Timing Ao 154 Updated by Carlitos Kat MD on 11/07/2016 4:24:41 PM electronically signed on 11/07/2016 4:26:22 PM with status of Final
--- NOTE | 2016-11-07 18:24 | Infectious Disease Progress No ---
Date of Encounter: 11/07/16 Time of Encounter: 18:21 - Assessment and Plan (1) Osteomyelitis Current Visit: Yes Status: Acute Location: Right calcaneus. X-ray completed 10/16/16 shows suspected early osteomyelitis. Causative organism E. coli per wound culture obtained 10/16/16, but concern for polymicrobial infection. The patient has been on IV Rocephin at the [facility] since 10/23/16. Clinically, the wound does not appear infected, but apparently there has been some regression of the wound. Dr. Toro plans to take the patient to the OR tomorrow for I & D with possible skin graft placement. ESR and CRP noted Get blood cultures x 2 sets now. Will defer imaging orders to the podiatry team. Continue wound care and activity restrictions per the podiatry team. The patient does not appear toxic and she has no SIRS criteria. Hold antibiotics until after surgery to get cultures. The patient has already been on IV Rocephin for two weeks, so I am concerned that cultures will not grow anything. Start Vancomycin IV after surgery. Pharmacy to dose. Goal trough approximately 15. Start Cefepime 2 grams IV Q12H after surgery. Duration of treatment depends on the clinical picture. Monitor renal function and for drug toxicity and dose-adjust antibiotics. If the patient becomes febrile or decompensates, start broad spectrum antibiotics. Qualifiers: Osteomyelitis type: other Osteomyelitis location: foot Laterality: right Qualified Code(s): M86.8X7 - Other osteomyelitis, ankle and foot (2) Right foot ulcer Current Visit: Yes Status: Acute secondary to PVD s/p angiogram with right posterior tibial artery angioplasty. 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 laying in bed, appears comfortable. no chest pain no shortness of breath, no cough, no diarrhea, no urinary symptoms Infect Dis PN-Objective Data - Labs CBC & Chem 7: 11/06/16 12:02 11/06/16 12:02 Labs: Laboratory Results - last 24 hr 11/07/16 11/07/16 05:24 10:58 POC Glucose 198 H 115 H Exam - Constitutional Vitals: Temp Pulse Resp BP Pulse Ox 97.6 F 82 17 147/109 95 11/07/16 17:02 11/07/16 17:30 11/07/16 11:00 11/07/16 17:30 11/07/16 11:00 General appearance: no acute distress, no febrile - Head Head exam: Present: atraumatic, normocephalic - Eye Eye exam: Present: EOMI, PERRL - Respiratory Respiratory exam: Present: CTAB. Absent: wheezes - Cardiovascular Cardiovascular exam: Present: RRR, +S1, +S2 - GI/Abdominal GI/Abdominal exam: Present: normal bowel sounds, soft. Absent: tenderness Consult Discharge Plan - Plan Referrals: Robin Mays MD [Non-Partnered Physician] - 11/13/16 4:30 pm (The appointment will be in [place]. Thank you)
[2016-11-07] MEDS: Mirtazapine 15 MG TABLET PO SCH (20:50)
[2016-11-08 05:22] LABS: Basophils % 0.5 %; Eosinophils # 0.2 K/mcL (0.0-0.6); Eosinophils % 2.7 %; Immature Granulocytes % 0.8 % (0-4); Lymphocytes # 1.5 K/mcL (0.6-4.6); Lymphocytes % 20.5 %; Mean Corpuscular HGB Conc 31.1 g/dL (31.6-35.5); Mean Corpuscular Hemoglobin 28.9 pg (28.0-33.3); Mean Platelet Volume 11.3 fL (9.4-12.4); Monocytes # 0.5 K/mcL (0.0-1.3); Neutrophils # 5.2 K/mcL (1.6-8.9); Platelet Count 199 K/mcL (140-400); Red Blood Count 4.84 M/mcL (3.82-4.97); Red Cell Distribution Width 15.8 % (11.5-14.5); Segmented Neutrophils % 69.5 %
[2016-11-08 05:42] LABS: BUN/Creatinine Ratio 14 (6-26); Blood Urea Nitrogen 13 mg/dL (7-20); Calcium 8.7 mg/dL (8.6-10.8); Carbon Dioxide 26 mEq/L (19-29); Chloride 109 mEq/L (98-109); Glucose 98 mg/dL (70-99); Osmolality,Calculated 298 (280-300); Sodium 144 mEq/L (136-145); eGFR For African Americans > 60 (> 60); eGFR For Non-African Americans > 60 (> 60)
[2016-11-08] MEDS: Insulin LISPRO 300 UNITS/3 ML VIAL SQ SCH ×3 (08:45→16:54)
[2016-11-08] MEDS: Insulin DETEMIR 100 UNIT/ML X5UNITS SQ SCH ×2 (08:49→21:50)
[2016-11-08] MEDS: Loratadine 10 MG TABLET PO SCH (09:07)
[2016-11-08] MEDS: Gabapentin 300 MG CAPSULE PO SCH ×2 (09:07→20:57)
[2016-11-08] MEDS: Multivit/Ca/Min/Fe/FA 1 TAB TABLET PO SCH (09:07)
[2016-11-08] MEDS: Furosemide 40 MG TABLET PO SCH (09:07)
--- NOTE | 2016-11-08 09:51 | Anesthesia Evaluation PreOp ---
Date of Encounter: 11/08/16 Time of Encounter: 11:28 - Past History Planned Operation: I & D Left Foot Cardiac History: HTN, Hyperlipidemia, Arrhythmia (A-Fib) Pulmonary History: Smoker (30+ years), Other (H/O DVT with PE) ARTS THERAPIST History: CVA (S/P CVA x 4, no residual deficits) Other Medical History: Diabetes Type II Anesthesia History: No Prior Anesthetic Complications, Past Anesthesia Alcohol Use: none Drug use: none Medications and Allergies Gabapentin [Neurontin] 600 mg PO BID 02/02/15 [History] [place] Oil/[place]-3 Fatty Acids [Fish Oil 500 mg Softgel] 2 cap PO DAILY [History] Atorvastatin [Lipitor] 10 mg PO HS 07/18/15 [History] Furosemide [Lasix] 40 mg PO DAILY 07/18/15 [History] Sertraline [Zoloft] 100 mg PO DAILY 07/18/15 [History] Rivaroxaban [Xarelto] 20 mg PO DAILY 06/03/16 [History] Loratadine [Allergy Relief] 10 mg PO DAILY 06/17/16 [History] Mirtazapine [Remeron] 30 mg PO HS 06/17/16 [History] Albuterol Sulfate [Albuterol Inhaler] 2 puff IH Q6HR PRN 07/31/16 [History] Acetaminophen [Tylenol] 1,000 mg PO Q6HR PRN 11/06/16 [History] Arginine/Glutamine/Calcium Hmb [Nikita Packet] 1 packet PO DAILY 11/06/16 [ History] Ergocalciferol (VITAMIN D2) [Vitamin D2] 50,000 units PO QWEEK 11/06/16 [History ] Insulin LISPRO [Humalog Kwikpen U-100] 2 - 8 unit SQ TID MDD PER SLIDING SCALE 11/06/16 [History] Metoprolol [Lopressor] 100 mg PO BID 11/06/16 [History] Multivitamin,Stress Formula/Zn [Stress B with Zinc Tablet] 1 tab PO DAILY [History] Sennosides/Docusate Sodium [Senna-S Tablet] 1 tab PO BID PRN 11/06/16 [History] Allergies codeine Allergy (Verified 07/26/16 00:49) See Comments Unknown reaction. Paroxetine [From Paxil] Allergy (Verified 07/26/16 00:49) See Comments Unknown reaction. Penicillins Allergy (Verified 07/26/16 00:49) See Comments Unknown reaction. - Meds/Allergy Pre-op Review Medications Reviewed: Yes Allergies Reviewed: Yes Beta Blockers on Current Med List: Yes If Beta Blockers taken, Date/Time (Last Dose taken): at 0907 Anesthesia Results - Labs 11/08/16 04:00 11/08/16 04:00 - Imaging EKG: report reviewed (07/26/2016 A-Fib with RVR, marked RAD) Additional studies: 10/26/2015 Echo LVEF 50-55% LV function varies with cycle length of A-Fib, but appears low normal overall indeterminate diastolic function no evidence of pulmonary HTN no obvious significant valvular dysfunction 09/07/2014 Echo Impressions: LVEF 65%;No SMWMAs%. Normal left ventricular size and systolic function. There is no evidence of left ventricular thrombus. Definity was not given. There is evidence of mild diastolic dysfunction of the left ventricle. Mildly enlarged left atrial size. Normal right ventricular size and function. Normal right atrial size. No significant valvular dysfunction. No pulmonary hypertension. Anesthesia Exam Vital Signs/O2 Sat/Glucose, Most Recent Temp Pulse Resp BP Pulse Ox 97.9 F 73 19 151/96 93 11/08/16 07:33 11/08/16 07:33 11/08/16 07:33 11/08/16 07:33 11/08/16 07:33 Blood Glucose* 182 Height: 5'3''/1.6 m Weight: 223 lbs/101.6 kg NPO (# of Hours): 8 Pain Scale: 0 Pain Scale Used: Numeric (1 - 10) - HEENT Pupil (Motor): EOMI Mallampati: II Teeth: Normal Denture Type: Upper: Complete Oral Opening: Greater than 3 - ARTS THERAPIST LOC: Oriented ARTS THERAPIST Motor: Normal RUE, Normal LUE, Normal RLE, Normal LLE, Normal Face ARTS THERAPIST Sensory: Normal: Face, Deficit: RUE, LUE, RLE, LLE - Cardiac Rhythm: Irregular Murmur: None - Pulmonary Breath Sounds: bilateral Clear Respiratory Effort: Symmetrical Anesthesia Assess/Plan ASA Score: 3 Modified [place] Scale for Level of Consciousness: Cooperative, oriented, and tranquil Anesthetic Plan: General Monitoring Plan: Standard Monitors
[2016-11-08] MEDS ORDERED: Bupivacaine/Clonidine Syringe 1 EACH SYRINGE ONE (11:01)
--- NOTE | 2016-11-08 13:00 | Invasive Diagnostic Lab Proc ---
Name: Geovanna Rascon Date of Study: 11/07/2016 Date: 1955 Ht: 160.0 in Medical Record#: [id number] Age: 61 Wt: 103 lb Gender: Female BSA: 2.04 Order #: [id number] BMI: 40.23 Physicians Performing MD: Carlitos Kat MD Referring MD: None Referring MD: Staff Name Position Time In Sites, Nafisa RT (R) Monitor Niya Coy RT (R) Harlan Villarreal RN Heavy Equipment Operator Indications Peripheral Vascular Disease with Ulceration Nonhealing right foot ulcer Procedures Performed AORTOGRAPHY, ABDOMINAL S\T\I AORTOGRAPHY EXT Bilat S\T\I Add'l Complete exam TIB/PER REVASC W/TLA Pre-Procedure Checklist Informed consent is complete signed and on chart. H\T\P is on chart. ID band is on and ID verified with patient. Patient NPO for procedure The procedure was described for the patient and questions were answered. Blood Pressure: 155/88 ECG is on chart. Rhythm: NSR Plan of Care Patient will tolerate the procedure without complications. Adequate level of comfort will be maintained. Hemodynamics will remain stable Patient will recover from procedure without complications. Respiratory function will be maintained. Cardiac rhythm will remain stable. Patient temperature will be maintained. Patient and/or family have verbalized understanding of the procedure. Patient Education Chief Complaint/Reason for Test: Peripheral angiogram Developmental Category: Geriatric (65+ years) Learning Barriers: None Education Needs: Procedure Education Method: Verbal Information Taught: Peripheral angiogram Educational Evaluation: Able to repeat information Intravenous Access Time IV Size Location DC'd Fluid/Drip Rate Units RN PICC Line 0.9NaCl 25 ml/hr Harlan Aguilera RN Allergies Sulfa (Sulfonamide Antibiotics) Paroxetine codeine Penicillins Vital Signs Time BP Systolic BP Diastolic HR O2 Sats ASA 01:16 PM 155 88 80 92 01:51 PM 01:51 PM 02:07 PM 02:55 PM 144 90 78 98 01:50 PM 156 93 64 98 01:55 PM 145 92 73 95 02:00 PM 152 98 77 95 02:05 PM 143 102 73 97 02:10 PM 147 97 76 98 02:15 PM 153 109 68 97 02:20 PM 148 95 72 96 02:25 PM 141 98 73 95 02:30 PM 138 82 83 95 02:35 PM 148 87 78 95 02:40 PM 139 89 78 93 Procedure Medications Time Medication Dose Units Method Route 01:51 PM Oxygen 2 L/min nasal cannula 01:51 PM Versed 1 mg Intravenous 01:55 PM Lidocaine 2% 10 ml Subcutaneous 02:24 PM Heparin 3000 units Intra-arterial 02:35 PM Plavix 75 mg Orally ASA Classification: CLASS III- Severe systemic disease (i.e. prior AMI, diabetes with vascular complications, morbid obesity) Shad Score Preprocedure Postprocedure Activity 2- Moves 4 extremities sustained head lift Activity Circulation 2- SBP +/= 20 points of pre-anesthetic level Circulation Consciousness 2- Awake and alert oriented x 3 Consciousness O2 Saturation 2- Able to maintain O2 satruation of 92% on room air O2 Saturation Respiratory 2- Able to deep breathe and cough well Respiratory Total Score 10 Total Score Contrast: Isovue 250- 150ml Contrast Amount: 94 ml Fluoro Dose: 388 mGy Activated Clotting Time Time Drawn ACT (sec) 02:35 PM 243 Procedure Log Time Note Entered By 01:35 PM Pt arrived to drop crew laborer 1 at 13:35 [email or web address] 01:35 PM Nafisa Mitchell RT (R) Position: Monitor Time in: 13:35 csmith 01:35 PM Niya Coy RT (R) Position: Scrub Time in: 13:35 csmith 01:35 PM Harlan Aguilera RN Position: Heavy Equipment Operator Time in: 13:35 csmith 01:36 PM Case delayed: No csmith 01:39 PM Physician arrived 13:39 tsites 01:39 PM Meet and greet completed tsites 01:39 PM Sign in performed according to hospital policy. tsites 01:40 PM Procedure start 13:40 tsites 01:50 PM Hair removed from procedure site in holding area using clippers. Bilateral groin prepped with Chloraprep by Nafisa Mitchell RT (R), safety strap applied then patient was draped. Skin intact. tsites 01:51 PM 13:51 Oxygen at 2 L/min per nasal cannula by Harlan Aguilera RN tsites :51 PM 13:51 Versed 1 mg Intravenous Given by Harlan Aguilera RN tsites :51 PM Time: 13:51 Is patient comfortable and pain free?: Yes tsites :51 PM Time: 13:51LOC: 5 = Fully awake and oriented or at pre-proc level tsites 01:51 PM Patient charges- Angio tray pack, Pulse Oximetry and ACIST tubing and transducer tsites 01:55 PM Time out perfomed tsites 01:55 PM Ultrasound, Sonosite, utilized to obtain vascular access tsites 01:59 PM 13:55 10 ml Lidocaine 2% to left groin Subcutaneous Given By Carlitos Kat MD tsites 02:00 PM Access obtained in the left femoral artery by percutaneous puncture. 4 Fr. 10 cm Terumo [place] sheath placed in left femoral artery tsites 02:00 PM 0.035 180cm Bentson wire utilized to assist with catheter placement tsites 02:03 PM 4Fr Omniflush catheter inserted over the wire tsites 02:04 PM Abdominal aorta angiography performed in AP contrast injected 20/10 mls. tsites 02:04 PM Setting up for stepping tsites 02:04 PM Abdominal angiogram with runoff completed: 8 ml/sec for a total of 60 mls tsites 02:07 PM Time: 13:51LOC: 4 = Oriented but drowsy tsites 02:07 PM Time: 13:51 Is patient comfortable and pain free?: Yes tsites 02:11 PM wire reinserted repositioning catheter tsites 02:13 PM Right posterior tibial angiography performed in AP contrast injected 4/10 mls. tsites 02:13 PM 5cc of contrst injected tsites 02:14 PM 5cc of contrast injected tsites 02:16 PM bentson wire reinserted tsites 02:17 PM catheter removed tsites 02:17 PM Intervention started at this time tsites 02:17 PM Sheath exchanged for a 4 Fr 45 cm Terumo Destination sheath inserted into left femoral artery tsites 02:19 PM Wire removed tsites 02:19 PM 0.014 Journey 300cm guidewire advanced to target vessel. tsites 02:19 PM Inflation device tsites 02:22 PM Time: 14:07 Is patient comfortable and pain free?: Yes tsites 02:22 PM Time: 14:07LOC: 4 = Oriented but drowsy tsites 02:23 PM 3 mm x 20 mm Sas Etl Developer balloon catheter placed into right posterior tibial tsites 02:25 PM 14:24 Heparin 3000 units Intra-arterial by Carlitos Kat MD tsites 02:28 PM Balloon inflated @ 8 missy for 30 seconds tsites 02:28 PM 5cc of contrst injected tsites 02:31 PM Balloon inflated @ 8 missy for 30 seconds tsites 02:31 PM Balloon removed intact tsites 02:32 PM ACT drawn tsites 02:32 PM wire reinserted tsites 02:32 PM Sheath exchanged for a 4 Fr 10 cm Terumo Destination sheath inserted into left femoral artery tsites 02:34 PM Procedure completed at 14:34 tsites 02:34 PM Sign Out completed: Radiation Dose 388 mGy Fluoro Time: 6.6 minutes. Isovue 250- 150ml contrast 94 ml given by Carlitos Kat MD. Complications: None. Confirmed administered medications:Yes tsites 02:34 PM Isovue 250- 150ml,1 bottle(s) used. tsites 02:34 PM Post Blood Pressure: 138/82 tsites 02:35 PM Post EKG: Atrial Fibrillation tsites 02:35 PM ACT: 243 seconds 14:35 tsites 02:36 PM Time: 14:35 Plavix 75 mg Orally Given by Harlan Aguilera RN tsites 01:11 PM PVIStat 01:45 PM Vitals capture started with the following parameters, Patient=Adult, Interval=5 min, Initial Cuhkgovg=028 mmHg, Deflation Rate=5 mmHg, Cuff placed on Right Arm 01:46 PM Vitals capture started with the following parameters, Patient=Adult, Interval=5 min, Initial Tlklkxtl=411 mmHg, Deflation Rate=5 mmHg, Cuff placed on Right Arm 01:48 PM Vitals capture stopped. 01:49 PM Vitals capture started with the following parameters, Patient=Adult, Interval=5 min, Initial Vpweffat=508 mmHg, Deflation Rate=5 mmHg, Cuff placed on Right Arm 01:50 PM HR=64 bpm, TAJU=870/93 mmhg, SpO2=98.0 %, Resp=18 B/min 01:52 PM Recorded ECG: HR=82 Condition=Condition 1 01:53 PM Pressure channel 2 zeroed. 01:55 PM HR=73 bpm, ZRTX=237/92 mmhg, SpO2=95.0 %, Resp=13 B/min 02:00 PM HR=77 bpm, QURF=940/98 mmhg, SpO2=95.0 %, Resp=16 B/min 02:04 PM Recorded Pressure: Ao, HR=93, Condition=Condition 1 (Aorta) Ao 154/97/119 02:05 PM HR=73 bpm, NRAB=285/102 mmhg, SpO2=97 %, Resp=16 B/min 02:10 PM HR=76 bpm, KBOW=286/97 mmhg, SpO2=98.0 %, Resp=15 B/min 02:15 PM HR=68 bpm, MEPE=237/109 mmhg, SpO2=97 %, Resp=16 B/min 02:20 PM HR=72 bpm, BIEJ=536/95 mmhg, SpO2=96 %, Resp=15 B/min 02:25 PM HR=73 bpm, IYNI=268/98 mmhg, SpO2=95 %, Resp=15 B/min 02:30 PM HR=83 bpm, XGXD=758/82 mmhg, SpO2=95 %, Resp=18 B/min 02:35 PM HR=78 bpm, QDMK=677/87 mmhg, SpO2=95 %, Resp=17 B/min 02:40 PM HR=78 bpm, UKHN=247/89 mmhg, SpO2=93 % 02:37 PM Sheath left in place to be pulled on floor/holding areaV+Pad tsites 02:40 PM Information taught: Peripheral angiogram and OUTFITTER CABIN tsites 02:42 PM Education needs: Procedure, Plan of Care, and Responsibilities of Patient in Care tsites 02:56 PM Learning barriers: None tsites 02:56 PM Education methods: Verbal tsites 02:56 PM Education evaluation: Able to repeat information tsites 02:56 PM Patient pain level 0/10 tsites 02:56 PM Site status No bleeding/hematoma - Lt Groin as reported by Niya Coy RT (R) at 14:56 tsites 02:56 PM Delay to floor: No tsites 02:56 PM Pt taken to 2N Room# 3 tsites 02:57 PM Family placed in consult room. tsites 02:57 PM Patient out of room 14:57 tsites Hemodynamic Results Site Systolic Diastolic Mean Location Timing Ao 154 97 119 Peripheral Anatomy Vessel Pathology Lesion Stenosis Aneurysm Diameter Thrombus Type Right Post. Tibial Lesion 100 Right Post. Tibial Lesion 95 Left Post. Tibial Lesion 100 Peripheral Intervention Anatomical Region:LE Vessel Segment:Undefined Bookmark: [email or web address] Pathology Type:Lesion Pre-Stenosis:95 Post-Stenosis:0 Post Procedure Information Blood Pressure: 138/82 mmHg Rhythm: Atrial Fibrillation Report Given To: Nafisa Site Checks Time Location Status Staff Sheath In? Note 2:56:00 PM Lt Groin Niya Coy RT (R) 11/07/2016 3:00:00 PM Lt Groin No bleeding/ No Hematoma Harlan Aguilera RN Pulses Time Site Pre Procedure Post Procedure Note 11/07/2016 1:15:00 PM Lt DP 1+ 11/07/2016 1:15:00 PM Bilateral radial 2+ Updated by Erika Ridley RN on 11/08/2016 12:54:51 PM electronically signed on 11/08/2016 12:55:41 PM with status of Final
[2016-11-08] MEDS ORDERED: *HR* FentaNYL (PF) 100 MCG/2 ML VIAL ONE (13:09)
[2016-11-08] MEDS ORDERED: *HR* Midazolam HCl 2 MG/2 ML VIAL ONE (13:09)
[2016-11-08] MEDS ORDERED: *HR* Propofol 200 MG/20 ML VIAL IVP ONE (13:09)
[2016-11-08] MEDS ORDERED: *HR* Dextrose 50 % in Water (Syg) 50 ML SYRINGE IVP PRN (13:33)
[2016-11-08] MEDS ORDERED: Dextrose Gel 15 GM PO PRN ×2 (13:33)
[2016-11-08] MEDS ORDERED: D5% in Water 1,000 ML IVC PRN (13:33)
[2016-11-08] MEDS ORDERED: Sennosides/Docusate Sodium TABLET PO PRN (13:33)
--- NOTE | 2016-11-08 16:47 | Internal Med Progress Note ---
Date of Encounter: 11/08/16 Time of Encounter: 16:43 - Assessment and plan (1) Osteomyelitis Current Visit: Yes Status: Acute Assessment and plan: Possibly subacute osteomyelitis of right calcaneus. Plan for wound care per primary service. Underwent right great toe amputation with debridement of medial foot ulcer and wound VAC placement today, postoperative day 1. Infectious diseases on board. plan to start IV vancomycin and cefepime today. Follow up intraoperative wound cultures. Follow-up blood cultures. Supportive care. plan is for patient to return to rehabilitation facility when stable from podiatry standpoint. Qualifiers: Osteomyelitis type: other Osteomyelitis location: foot Laterality: right Qualified Code(s): M86.8X7 - Other osteomyelitis, ankle and foot (2) Atherosclerosis of [place] artery of both lower extremities with bilateral ulceration Current Visit: Yes Status: Chronic Assessment and plan: Patient is known to have peripheral arterial disease in bilateral lower extremities. Vascular surgery consulted, patient underwent right posterior tibial balloon angioplasty on November 07. Continue aspirin. Qualifiers: Lower extremity ulceration location: other part of foot Qualified Code(s): I70.235 - Atherosclerosis of [place] arteries of right leg with ulceration of other part of foot; I70.245 - Atherosclerosis of [place] arteries of left leg with ulceration of other part of foot (3) Chronic kidney disease Current Visit: Yes Status: Chronic Assessment and plan: Patient possibly has chronic kidney disease secondary to diabetic nephropathy. Review of previous labs show serum creatinine around 1.2. Serum creatinine noted to be normal today, less likely chronic kidney disease. Continue to monitor closely and dose antibiotics according to current creatinine clearance. Qualifiers: Chronic kidney disease stage: stage 3 (moderate) Qualified Code(s): N18.3 - Chronic kidney disease, stage 3 (moderate) (4) Diabetes mellitus Current Visit: Yes Status: Chronic Assessment and plan: Noted to be well controlled with hemoglobin A1c 7.3% continue Accu-Chek blood glucose monitoring with basal bolus insulin regimen. Diabetic diet. Qualifiers: Diabetes mellitus type: type 2 Diabetes mellitus complication status: with skin complications Diabetes mellitus complication detail: with foot ulcer Diabetes mellitus intermodal dispatcher insulin use: with intermodal dispatcher use Qualified Code(s) : E11.621 - Type 2 diabetes mellitus with foot ulcer; L97.509 - Non-pressure chronic ulcer of other part of unspecified foot with unspecified severity; Z79.4 - shelter (current) use of insulin (5) Atrial fibrillation Current Visit: Yes Status: Chronic Assessment and plan: Currently rate controlled. Noted to be on long-term anticoagulation with Pradaxa, continue. Qualifiers: Atrial fibrillation type: paroxysmal Qualified Code(s): I48.0 - Paroxysmal atrial fibrillation (6) Chronic venous hypertension (idiopathic) with ulcer of left lower extremity Current Visit: Yes Status: Chronic (7) Hypertension Current Visit: Yes Status: Chronic Assessment and plan: Blood pressure noted to be fairly controlled. Continue Metoprolol and start Norvasc; Qualifiers: Hypertension type: essential hypertension Qualified Code(s): I10 - Essential (primary) hypertension (8) Tobacco abuse Current Visit: Yes Status: Chronic - Subjective Interval history: Reports feeling well; denies right foot pain, fever/chills, nausea/emesis; had right great toe amputation and debridement of foot ulcer with wound vac placement today; - Constitutional Vitals: Temp Pulse Resp BP Pulse Ox 97.5 F L 67 16 133/80 93 11/08/16 16:40 11/08/16 16:40 11/08/16 16:40 11/08/16 16:40 11/08/16 16:40 General appearance: Present: A&O X 3, answers questions appropriately - Respiratory Respiratory exam: Present: CTAB. Absent: accessory muscle use, rales, rhonchi, wheezes - Cardiovascular Cardiovascular exam: Present: RRR, +S1, +S2. Absent: diastolic murmur, gallop, rubs, systolic murmur - Extremities Exam Extremities exam: Present: warm, radial pulses palpable and symetrical. Absent : calf tenderness, cyanotic, pedal edema Additional comments: Right foot status post great toe amputation, surgical dressing intact, wound VAC in place with minimal dark bloody drainage Internal Medicine: Result - Labs CBC & Chem 7: 11/08/16 04:00 11/08/16 04:00 Labs: Short CBC 11/08/16 Range/Units 04:00 WBC 7.5 (4.3-11.1) K/mcL Hgb 14.0 (11.5-15.4) g/dL Hct 45.0 H (35.3-44.9) % Plt Count 199 (140-400) K/mcL Neutrophils # 5.2 (1.6-8.9) K/mcL BMP 11/08/16 04:00 Sodium 144 Potassium 4.0 Chloride 109 Carbon Dioxide 26 BUN 13 Creatinine 0.91 Glucose 98 Calcium 8.7 - ABG Interpretation ABG results: PT/INR, D-dimer PT 12.8 Seconds (9.4-12.1) H 11/06/16 12:02 - VTE Documentation of Mechanical Device: Intermittent pneumatic compression device Consult Discharge Plan - Plan Referrals: Robin Mays MD [Non-Partnered Physician] - 11/13/16 4:30 pm (The appointment will be in [place]. Thank you) Gildardo Hamilton MD [Partnered Physician] - (Cardiology will call patient at home with follow up appointment, due to they make their own appointments)
--- NOTE | 2016-11-08 16:54 | Orthopedic Operative Note ---
Date of procedure: 11/08/16 Pre-op diagnosis: #1: 2 nonhealing surgical wound of the right foot Post-op diagnosis: other (Tunneling noted proximal medial heel wound) Procedure: 11/08/16 16:52 #1 incision and drainage and debridement of all necrotic tissue multiple areas right foot Implants: None Complications: None Anesthesia: MAC, local Local Anesthetics: 0.25% Sensorcaine HCL SubQ (cc) Surgeon: Davie Toro Estimated blood loss (cc): 10 Tourniquet Time (Minutes): 0 Specimen: None Condition: stable Disposition: floor Procedure in Detail: 11/08/16 16:54 Details in summary of procedure: The patient was brought to the surgical suite. A sign in procedure was performed. The patient was then transferred to the surgical table and positioned properly safely and securely. The right foot was elevated on a foam block. Anesthetic timeout was taken. The right ankle was prepped with alcohol 3 times. Ankle block carried out without difficulty or complication. The right foot was then prepped and draped in usual sterile manner. Surgical timeout was taken. There is a nonhealing surgical wound of the medial aspect of the right calcaneus and the distal aspect of the first metatarsal. Patient had undergone previous debridement [facility] with amputation of the right great toe and portion of the metatarsal as well as debridement of the medial heel. We now seat nonhealing surgical wound with the tunnel at the 9 o'clock position of the proximal heel wound. The right heel ulceration measures approximately 7.5 cm in length 5 cm in width the distal medial first metatarsal wound measures 4.5 cm in length and 5 cm in width. All wounds are at least 0.8 cm in depth as high as 1.8 cm in depth in different areas of the proximal wound. We observe significant slough surrounding the wound bed and within the wound bed. We appreciated a tunnel. That juncture with exploration with a blunt probe the tunnel was identified and the incision was made full-thickness with a #15 scalpel blade. All necrotic nonviable tissue was debrided with a pickup and Metzenbaum scissor of the medial heel and the distal medial first metatarsal wound. The wounds were debrided throughout. At that juncture a ultrasonic Misonix debrider was used to completely debride the wounds as well. All bleeders noted were judiciously bovied. The incision for the tunnel was then closed with 3-0 Prolene. Satisfied we had a clean wound with viable tissue remaining there was noted to bleed freely without necessitating any further use of Bovie ligature a wound VAC was then applied. No complications estimated blood loss less than 10 mL. Patient was sent to holding room in good condition with vital signs stable.
[2016-11-08] MEDS: amLODIPine 5 MG TABLET PO SCH (17:39)
[2016-11-08] MEDS: Mirtazapine 15 MG TABLET PO SCH (20:57)
[2016-11-08] MEDS ORDERED: Insulin LISPRO 300 UNITS/3 ML VIAL SQ SCH (21:00)
[2016-11-09] MEDS: *HR* Rivaroxaban 10 MG TABLET PO SCH (08:39)
[2016-11-09] MEDS: amLODIPine 5 MG TABLET PO SCH (08:40)
[2016-11-09] MEDS: Loratadine 10 MG TABLET PO SCH (08:40)
[2016-11-09] MEDS: Furosemide 40 MG TABLET PO SCH (08:41)
[2016-11-09] MEDS: Gabapentin 300 MG CAPSULE PO SCH ×2 (08:41→21:15)
[2016-11-09] MEDS: Multivit/Ca/Min/Fe/FA 1 TAB TABLET PO SCH (08:41)
[2016-11-09] MEDS: Insulin LISPRO 300 UNITS/3 ML VIAL SQ SCH ×3 (08:44→17:03)
[2016-11-09] MEDS: Insulin DETEMIR 100 UNIT/ML X5UNITS SQ SCH ×2 (09:38→21:14)
--- NOTE | 2016-11-09 12:17 | Internal Med Progress Note ---
Date of Encounter: 11/09/16 Time of Encounter: 12:16 - Assessment and plan (1) Osteomyelitis Current Visit: Yes Status: Acute Assessment and plan: Possibly subacute osteomyelitis of right calcaneus. Plan for wound care per primary service. Underwent right foot debridement of multiple ulcers and wound VAC placement, postoperative day 2. Infectious diseases on board. started IV vancomycin and cefepime today, per ID recommendations. However called Microbiology lab and no wound/bone cultures received from surgery? Follow-up blood cultures. Supportive care. plan is for patient to return to rehabilitation facility when stable from podiatry standpoint. Qualifiers: Osteomyelitis type: other Osteomyelitis location: foot Laterality: right Qualified Code(s): M86.8X7 - Other osteomyelitis, ankle and foot (2) Atherosclerosis of [place] artery of both lower extremities with bilateral ulceration Current Visit: Yes Status: Chronic Assessment and plan: Patient is known to have peripheral arterial disease in bilateral lower extremities. Vascular surgery consulted, patient underwent right posterior tibial balloon angioplasty on November 07. Continue aspirin. Qualifiers: Lower extremity ulceration location: other part of foot Qualified Code(s): I70.235 - Atherosclerosis of [place] arteries of right leg with ulceration of other part of foot; I70.245 - Atherosclerosis of [place] arteries of left leg with ulceration of other part of foot (3) Chronic kidney disease Current Visit: Yes Status: Chronic Assessment and plan: Patient possibly has chronic kidney disease secondary to diabetic nephropathy. Review of previous labs show serum creatinine around 1.2. Continue to monitor closely and dose antibiotics according to current creatinine clearance. Qualifiers: Chronic kidney disease stage: stage 3 (moderate) Qualified Code(s): N18.3 - Chronic kidney disease, stage 3 (moderate) (4) Diabetes mellitus Current Visit: Yes Status: Chronic Assessment and plan: hemoglobin A1c 7.3% continue Accu-Chek blood glucose monitoring with basal bolus insulin regimen. Blood sugars noted to be elevated- will increase basal and sliding scale insulin. Diabetic diet. Qualifiers: Diabetes mellitus type: type 2 Diabetes mellitus complication status: with skin complications Diabetes mellitus complication detail: with foot ulcer Diabetes mellitus exterminator helper insulin use: with exterminator helper use Qualified Code(s) : E11.621 - Type 2 diabetes mellitus with foot ulcer; L97.509 - Non-pressure chronic ulcer of other part of unspecified foot with unspecified severity; Z79.4 - [facility] (current) use of insulin (5) Atrial fibrillation Current Visit: Yes Status: Chronic Assessment and plan: Currently rate controlled. Noted to be on long-term anticoagulation with Pradaxa, continue. Qualifiers: Atrial fibrillation type: paroxysmal Qualified Code(s): I48.0 - Paroxysmal atrial fibrillation (6) Chronic venous hypertension (idiopathic) with ulcer of left lower extremity Current Visit: Yes Status: Chronic (7) Hypertension Current Visit: Yes Status: Chronic Assessment and plan: Blood pressure noted to be well controlled. Continue Metoprolol and Norvasc; Qualifiers: Hypertension type: essential hypertension Qualified Code(s): I10 - Essential (primary) hypertension (8) Tobacco abuse Current Visit: Yes Status: Chronic - Subjective Interval history: Reports feeling well; no new complaints; no nausea, emesis, fever/chills; no right foot pain; - Constitutional Vitals: Temp Pulse Resp BP Pulse Ox 97.8 F 63 16 126/81 94 11/09/16 11:44 11/09/16 11:44 11/09/16 11:44 11/09/16 11:44 11/09/16 11:44 General appearance: Present: A&O X 3, answers questions appropriately - Respiratory Respiratory exam: Present: CTAB. Absent: accessory muscle use, rales, rhonchi, wheezes - Cardiovascular Cardiovascular exam: Present: RRR, +S1, +S2. Absent: diastolic murmur, gallop, rubs, systolic murmur - GI/Abdominal GI/Abdominal exam: Present: normal bowel sounds, soft, no peritoneal signs. Absent: distended, tenderness - Extremities Exam Extremities exam: Present: warm, radial pulses palpable and symetrical. Absent : calf tenderness, cyanotic, pedal edema Additional comments: right foot in wound vac, s/p debridement of multiple areas on medial foot Internal Medicine: Result - Labs CBC & Chem 7: 11/08/16 04:00 11/08/16 04:00 - ABG Interpretation ABG results: PT/INR, D-dimer PT 12.8 Seconds (9.4-12.1) H 11/06/16 12:02 - VTE Documentation of Mechanical Device: Intermittent pneumatic compression device Consult Discharge Plan - Plan Referrals: Robin Mays MD [Non-Partnered Physician] - 11/13/16 4:30 pm (The appointment will be in [place]. Thank you) Gildardo Hamilton MD [Partnered Physician] - (Cardiology will call patient at home with follow up appointment, due to they make their own appointments)
--- NOTE | 2016-11-09 12:19 | Podiatry Progress Note ---
Date of Encounter: 11/09/16 Time of Encounter: 11:00 - Assessment and Plan (1) Right foot ulcer Current Visit: Yes Status: Acute c/w wound vac. awaiting wound vac approval at facility, paperwork sent Friday. next change of wound vac would be Friday. medical management per internal medicine and antibiotic management by infectious disease. Qualifiers: Non-pressure ulcer stage: with necrosis of muscle Qualified Code(s): L97.513 - Non-pressure chronic ulcer of other part of right foot with necrosis of muscle Subjective Interval history: s/p vascular angioplasty and excisional debridement of foot ulceration. denies f /c/n/v/sob/cp. wound vac in place Objective - Vital Signs Vital Signs: Vital Signs Temp Pulse Resp BP Pulse Ox 11/09/16 11:44 97.8 F 63 16 126/81 94 11/09/16 07:50 97.6 F 81 16 146/94 94 11/09/16 03:57 99.2 F 81 14 153/87 92 11/09/16 03:50 98.4 F 83 14 147/79 92 11/08/16 17:40 98.0 F 78 14 144/88 93 11/08/16 16:40 97.5 F L 67 16 133/80 93 11/08/16 14:30 64 141/83 11/08/16 14:00 76 153/116 11/08/16 13:45 68 147/103 11/08/16 13:30 62 141/109 Intake and Output 11/08/16 11/09/16 11/09/16 23:59 07:59 15:59 Intake Total 0 / 0 120 / 120 240 / 240 Output Total 200 / 200 400 / 400 Balance -200 / -200 -280 / -280 240 / 240 Intake: Oral 0 / 0 120 / 120 240 / 240 Output: Urine 400 / 400 Urine/Stool Mix 200 / 200 Other: Meal Breakfast Percent of Meal Consumed 100% # Voids 1 Weight 101.605 kg Blood Glucose* 181 189 295 Patient Weight 11/09/16 23:59 Weight 101.605 kg - Exam Exam: well developed and nourished female in no acute distress CFT < 3 sec x 5 digits right foot. wound vac in place without excessive drainage in cannister. no bleeding at groin angio site. right foot is warm to touch. - Lab Result Diagrams: 11/08/16 04:00 11/08/16 04:00 Labs: Abnormal lab results Hct 45.0 % (35.3-44.9) H 11/08/16 04:00 MCHC 31.1 g/dL (31.6-35.5) L 11/08/16 04:00 RDW 15.8 % (11.5-14.5) H 11/08/16 04:00 ESR 53 mm/hr (0-15) H 11/06/16 12:02 PT 12.8 Seconds (9.4-12.1) H 11/06/16 12:02 POC Glucose 295 (58-89) H 11/09/16 11:41 C-Reactive Protein 32 mg/L (Less than 5) H 11/06/16 12:02 Microbiology, Last 48 Hours 11/06/16 12:02 Blood Culture - Preliminary Peripheral Venipuncture No growth. 11/06/16 11:56 Blood Culture - Preliminary Peripheral Venipuncture No growth. - VTE Documentation of Mechanical Device: Intermittent pneumatic compression device Consult Discharge Plan - Plan Referrals: Robin Mays MD [Non-Partnered Physician] - 11/13/16 4:30 pm (The appointment will be in [place]. Thank you) Gildardo Hamilton MD [Partnered Physician] - (Cardiology will call patient at home with follow up appointment, due to they make their own appointments)
[2016-11-09] MEDS ORDERED: Vancomycin 2,000 MG in D5% in Water 500 ML IVPB ONE (13:00)
[2016-11-09] MEDS: Cefepime HCl 1,000 MG in D5% in Water (Mini-Bag+) 100 ML IVPB SCH (18:09)
[2016-11-09] MEDS ORDERED: Insulin LISPRO 300 UNITS/3 ML VIAL SQ SCH (21:00)
[2016-11-09] MEDS: Mirtazapine 15 MG TABLET PO SCH (21:16)
[2016-11-10] MEDS: Vancomycin 1,500 MG in D5% in Water 250 ML IVPB SCH ×2 (00:45→12:01)
[2016-11-10] MEDS: Cefepime HCl 1,000 MG in D5% in Water (Mini-Bag+) 100 ML IVPB SCH ×2 (04:51→17:08)
[2016-11-10] MEDS: amLODIPine 5 MG TABLET PO SCH (07:35)
[2016-11-10] MEDS: Multivit/Ca/Min/Fe/FA 1 TAB TABLET PO SCH (07:35)
[2016-11-10] MEDS: Gabapentin 300 MG CAPSULE PO SCH ×2 (07:35→21:14)
[2016-11-10] MEDS: Insulin LISPRO 300 UNITS/3 ML VIAL SQ SCH ×4 (07:35→17:07)
[2016-11-10] MEDS: Loratadine 10 MG TABLET PO SCH (07:35)
[2016-11-10] MEDS: *HR* Rivaroxaban 10 MG TABLET PO SCH (07:35)
[2016-11-10] MEDS: Furosemide 40 MG TABLET PO SCH (07:35)
[2016-11-10] MEDS: Insulin DETEMIR 100 UNIT/ML X5UNITS SQ SCH ×2 (08:05→21:15)
[2016-11-10] MEDS ORDERED: Acetaminophen 325 MG TABLET PO PRN (11:29)
[2016-11-10 11:33] LABS: BUN/Creatinine Ratio 16 (6-26); Blood Urea Nitrogen 16 mg/dL (7-20); eGFR For African Americans > 60 (> 60); eGFR For Non-African Americans 54 (> 60)
--- NOTE | 2016-11-10 11:39 | Internal Med Progress Note ---
Date of Encounter: 11/10/16 Time of Encounter: 11:39 - Assessment and plan (1) Osteomyelitis Current Visit: Yes Status: Acute Assessment and plan: Possibly subacute osteomyelitis of right calcaneus. Plan for wound care per primary service. Underwent right foot debridement of multiple ulcers and wound VAC placement, postoperative day 3. Infectious diseases on board. started IV vancomycin and cefepime, per ID recommendations. However called Microbiology lab and no wound/bone cultures received from surgery? Blood cultures negative. Supportive care. plan is for patient to return to rehabilitation facility when stable from podiatry standpoint. Qualifiers: Osteomyelitis type: other Osteomyelitis location: foot Laterality: right Qualified Code(s): M86.8X7 - Other osteomyelitis, ankle and foot (2) Atherosclerosis of [place] artery of both lower extremities with bilateral ulceration Current Visit: Yes Status: Chronic Assessment and plan: Patient is known to have peripheral arterial disease in bilateral lower extremities. Vascular surgery consulted, patient underwent right posterior tibial balloon angioplasty on November 07. Continue aspirin. Qualifiers: Lower extremity ulceration location: other part of foot Qualified Code(s): I70.235 - Atherosclerosis of [place] arteries of right leg with ulceration of other part of foot; I70.245 - Atherosclerosis of [place] arteries of left leg with ulceration of other part of foot (3) Chronic kidney disease Current Visit: Yes Status: Chronic Qualifiers: Chronic kidney disease stage: stage 3 (moderate) Qualified Code(s): N18.3 - Chronic kidney disease, stage 3 (moderate) (4) Diabetes mellitus Current Visit: Yes Status: Chronic Assessment and plan: hemoglobin A1c 7.3% continue Accu-Chek blood glucose monitoring with basal bolus insulin regimen. Blood sugars noted to be uncontrolled, likely related to dextrose containing antibiotic infusions; will increase basal and sliding scale insulin. Diabetic diet. Qualifiers: Diabetes mellitus type: type 2 Diabetes mellitus complication status: with skin complications Diabetes mellitus complication detail: with foot ulcer Diabetes mellitus prison insulin use: with line inspector use Qualified Code(s) : E11.621 - Type 2 diabetes mellitus with foot ulcer; L97.509 - Non-pressure chronic ulcer of other part of unspecified foot with unspecified severity; Z79.4 - [facility] (current) use of insulin (5) Atrial fibrillation Current Visit: Yes Status: Chronic Assessment and plan: Currently rate controlled. Noted to be on long-term anticoagulation with Pradaxa, continue. Qualifiers: Atrial fibrillation type: paroxysmal Qualified Code(s): I48.0 - Paroxysmal atrial fibrillation (6) Chronic venous hypertension (idiopathic) with ulcer of left lower extremity Current Visit: Yes Status: Chronic (7) Hypertension Current Visit: Yes Status: Chronic Assessment and plan: Blood pressure noted to be well controlled. Continue Metoprolol and Norvasc; Qualifiers: Hypertension type: essential hypertension Qualified Code(s): I10 - Essential (primary) hypertension (8) Tobacco abuse Current Visit: Yes Status: Chronic - Subjective Interval history: Reports feeling well; no new complaints; no nausea, emesis, fever/chills; no right foot pain; - Constitutional Vitals: Temp Pulse Resp BP Pulse Ox 97.9 F 65 16 144/73 95 11/10/16 10:54 11/10/16 10:54 11/10/16 10:54 11/10/16 10:54 11/10/16 10:54 General appearance: Present: A&O X 3, answers questions appropriately - Respiratory Respiratory exam: Present: CTAB. Absent: accessory muscle use, rales, rhonchi, wheezes - Cardiovascular Cardiovascular exam: Present: RRR, +S1, +S2. Absent: diastolic murmur, gallop, rubs, systolic murmur Internal Medicine: Result - Labs CBC & Chem 7: 11/08/16 04:00 11/10/16 10:50 Labs: BMP 11/10/16 10:50 BUN 16 Creatinine 1.03 - ABG Interpretation ABG results: PT/INR, D-dimer PT 12.8 Seconds (9.4-12.1) H 11/06/16 12:02 - VTE Documentation of Mechanical Device: Intermittent pneumatic compression device Consult Discharge Plan - Plan Referrals: Robin Mays MD [Non-Partnered Physician] - 11/13/16 4:30 pm (The appointment will be in [place]. Thank you) Gildardo Hamilton MD [Partnered Physician] - (Cardiology will call patient at home with follow up appointment, due to they make their own appointments)
--- NOTE | 2016-11-10 12:02 | Podiatry Progress Note ---
Date of Encounter: 11/10/16 Time of Encounter: 10:00 - Assessment and Plan (1) Right foot ulcer Current Visit: Yes Status: Acute plan remains grossly unchanged. c/w wound vac. awaiting wound vac approval at facility, paperwork sent Friday. next change of wound vac would be Friday. medical management per internal medicine and antibiotic management by infectious disease. Qualifiers: Non-pressure ulcer stage: with necrosis of muscle Qualified Code(s): L97.513 - Non-pressure chronic ulcer of other part of right foot with necrosis of muscle Subjective Interval history: s/p vascular angioplasty and excisional debridement of foot ulceration. denies f /c/n/v/sob/cp. wound vac in place. no overnight events. Objective - Vital Signs Vital Signs: Vital Signs Temp Pulse Resp BP Pulse Ox 11/10/16 10:54 97.9 F 65 16 144/73 95 11/10/16 07:08 97.8 F 72 16 127/62 96 11/10/16 04:26 97.7 F 71 16 154/92 95 11/10/16 00:58 97.9 F 66 18 136/79 94 11/09/16 20:14 97.9 F 88 16 158/85 96 11/09/16 15:15 97.9 F 62 16 136/76 94 Intake and Output 11/09/16 11/10/16 11/10/16 23:59 07:59 15:59 Intake Total 960 / 960 250 / 250 Output Total 0 / 0 80 / 80 250 / 250 Balance 960 / 960 170 / 170 -250 / -250 Intake: IV Fluids 600 / 600 250 / 250 Maxipime 1,000 MG In 100 / 100 Dextrose 5% (Minibag+) 100 ML 100 ML @ 200 mls/ hr IVPB Q12HR [facility] Rx#: [id number] Vancocin 1,500 MG In 250 / 250 Dextrose 5% 250 ML @ 166. 67 mls/hr IVPB Q12H MEGA Rx#:[id number] Vancocin 2,000 MG In 500 / 500 Dextrose 5% 500 ML @ 250 mls/hr IVPB ONCE ONE Rx#: [id number] Oral 360 / 360 0 / 0 Output: Urine 0 / 0 0 / 0 250 / 250 Wound Drainage 80 / 80 Right Foot 80 / 80 Other: Meal Dinner Percent of Meal Consumed 75% Stool Size Moderate Stool Consistency soft Stool Characteristics Seedy Stool Color Brown # Voids 1 # Bowel Movements 1 Weight 88.5 kg Blood Glucose* 241 221 204 Patient Weight 11/10/16 23:59 Weight 88.5 kg - Exam Exam: well developed and nourished female in no acute distress right lower extremity wound vac in place and a functioning properly. drainage amount reviewed with nurse approx 80mL. no calf pain with squeeze. can flex and extend digits of the right foot. - Lab Result Diagrams: 11/08/16 04:00 11/10/16 10:50 Labs: Abnormal lab results Hct 45.0 % (35.3-44.9) H 11/08/16 04:00 MCHC 31.1 g/dL (31.6-35.5) L 11/08/16 04:00 RDW 15.8 % (11.5-14.5) H 11/08/16 04:00 ESR 53 mm/hr (0-15) H 11/06/16 12:02 PT 12.8 Seconds (9.4-12.1) H 11/06/16 12:02 Est GFR (Non-Af Amer) 54 (> 60) L 11/10/16 10:50 POC Glucose 221 (58-89) H 11/10/16 07:15 C-Reactive Protein 32 mg/L (Less than 5) H 11/06/16 12:02 - VTE Documentation of Mechanical Device: Intermittent pneumatic compression device Consult Discharge Plan - Plan Referrals: Robin Mays MD [Non-Partnered Physician] - 11/13/16 4:30 pm (The appointment will be in [place]. Thank you) Gildardo Hamilton MD [Partnered Physician] - (Cardiology will call patient at home with follow up appointment, due to they make their own appointments)
[2016-11-10] MEDS ORDERED: Insulin LISPRO 300 UNITS/3 ML VIAL SQ SCH (21:00)
[2016-11-10] MEDS: Mirtazapine 15 MG TABLET PO SCH (21:14)
[2016-11-11] MEDS: Vancomycin 1,500 MG in D5% in Water 250 ML IVPB SCH ×2 (00:42→12:39)
[2016-11-11] MEDS: Cefepime HCl 1,000 MG in D5% in Water (Mini-Bag+) 100 ML IVPB SCH (06:00)
[2016-11-11] MEDS: Insulin LISPRO 300 UNITS/3 ML VIAL SQ SCH ×3 (08:47→17:00)
[2016-11-11] MEDS: amLODIPine 5 MG TABLET PO SCH (08:48)
[2016-11-11] MEDS: Loratadine 10 MG TABLET PO SCH (08:48)
[2016-11-11] MEDS: *HR* Rivaroxaban 10 MG TABLET PO SCH (08:48)
[2016-11-11] MEDS: Furosemide 40 MG TABLET PO SCH (08:48)
[2016-11-11] MEDS: Multivit/Ca/Min/Fe/FA 1 TAB TABLET PO SCH (08:48)
[2016-11-11] MEDS: Gabapentin 300 MG CAPSULE PO SCH (08:49)
[2016-11-11] MEDS: Insulin DETEMIR 100 UNIT/ML X5UNITS SQ SCH (08:50)
[2016-11-11 11:08] VITALS: BP 110/68
[2016-11-11 13:15] LABS: BUN/Creatinine Ratio 17 (6-26); Blood Urea Nitrogen 18 mg/dL (7-20); Calcium 9.2 mg/dL (8.6-10.8); Carbon Dioxide 25 mEq/L (19-29); Chloride 106 mEq/L (98-109); Glucose 208 mg/dL (70-99); Osmolality,Calculated 300 (280-300); Sodium 141 mEq/L (136-145); eGFR For African Americans > 60 (> 60); eGFR For Non-African Americans 53 (> 60)
--- NOTE | 2016-11-11 14:42 | Internal Med Progress Note ---
Date of Encounter: 11/11/16 Time of Encounter: 10:15 - Assessment and plan (1) Osteomyelitis Current Visit: Yes Status: Acute Assessment and plan: Possibly subacute osteomyelitis of right calcaneus. Plan for wound care per primary service. Underwent right foot debridement of multiple ulcers and wound VAC placement, postoperative day 4. Infectious diseases on board. started IV vancomycin and cefepime, per ID recommendations. However called Microbiology lab and no wound/bone cultures received from surgery? Blood cultures negative. Supportive care. plan is for patient to return to rehabilitation facility when stable from podiatry standpoint. Hospitalist service will sign off at this time. Patient is medically stable. To be discharged back to [facility] on current medications with the following exceptions- current dose of Levemir along with high-dose sliding scale short-acting insulin , metoprolol and Norvasc for hypertension,IV antibiotics per ID recommendations , Xarelto has been decreased to 15mg daily; Thank you for the consult, please call with further questions; Qualifiers: Osteomyelitis type: other Osteomyelitis location: foot Laterality: right Qualified Code(s): M86.8X7 - Other osteomyelitis, ankle and foot (2) Atherosclerosis of [place] artery of both lower extremities with bilateral ulceration Current Visit: Yes Status: Chronic Qualifiers: Lower extremity ulceration location: other part of foot Qualified Code(s): I70.235 - Atherosclerosis of [place] arteries of right leg with ulceration of other part of foot; I70.245 - Atherosclerosis of [place] arteries of left leg with ulceration of other part of foot (3) Chronic kidney disease Current Visit: Yes Status: Chronic Qualifiers: Chronic kidney disease stage: stage 3 (moderate) Qualified Code(s): N18.3 - Chronic kidney disease, stage 3 (moderate) (4) Diabetes mellitus Current Visit: Yes Status: Chronic Assessment and plan: hemoglobin A1c 7.3% continue Accu-Chek blood glucose monitoring with basal bolus insulin regimen. Blood sugars noted to be uncontrolled, likely related to dextrose containing antibiotic infusions; noted to be somewhat improving today. Diabetic diet. 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 Noted to be on long-term anticoagulation with Xarelto, continue. Dose of Xarelto to be decreased to 15mg daily per renal function. Qualifiers: Atrial fibrillation type: paroxysmal Qualified Code(s): I48.0 - Paroxysmal atrial fibrillation (6) Chronic venous hypertension (idiopathic) with ulcer of left lower extremity Current Visit: Yes Status: Chronic (7) Hypertension Current Visit: Yes Status: Chronic Assessment and plan: Blood pressure noted to be well controlled. Continue Metoprolol and Norvasc; Qualifiers: Hypertension type: essential hypertension Qualified Code(s): I10 - Essential (primary) hypertension (8) Tobacco abuse Current Visit: Yes Status: Chronic - Subjective Interval history: Reports feeling well; no new complaints; no nausea, emesis, fever/chills; no right foot pain; - Constitutional Vitals: Temp Pulse Resp BP Pulse Ox 97.9 F 69 18 110/68 92 11/11/16 10:54 11/11/16 10:54 11/11/16 10:54 11/11/16 10:54 11/11/16 10:54 General appearance: Present: A&O X 3, answers questions appropriately - Respiratory Respiratory exam: Present: CTAB. Absent: accessory muscle use, rales, rhonchi, wheezes - Cardiovascular Cardiovascular exam: Present: RRR, +S1, +S2. Absent: diastolic murmur, gallop, rubs, systolic murmur Internal Medicine: Result - Labs CBC & Chem 7: 11/08/16 04:00 11/11/16 12:48 Labs: BMP 11/11/16 12:48 Sodium 141 Potassium 4.0 Chloride 106 Carbon Dioxide 25 BUN 18 Creatinine 1.06 Glucose 208 H Calcium 9.2 - ABG Interpretation ABG results: PT/INR, D-dimer PT 12.8 Seconds (9.4-12.1) H 11/06/16 12:02 - VTE Documentation of Mechanical Device: Intermittent pneumatic compression device Consult Discharge Plan - Plan Referrals: Robin Mays MD [Non-Partnered Physician] - 11/13/16 4:30 pm (The appointment will be in [place]. Thank you) Gildardo Hamilton MD [Partnered Physician] - (Cardiology will call patient at home with follow up appointment, due to they make their own appointments)
--- NOTE | 2016-11-11 16:22 | Infectious Disease Progress No ---
Date of Encounter: 11/11/16 Time of Encounter: 16:20 - Assessment and Plan (1) Osteomyelitis Current Visit: Yes Status: Acute Location: Right calcaneus. X-ray completed 10/16/16 shows suspected early osteomyelitis. Causative organism E. coli per wound culture obtained 10/16/16, but concern for polymicrobial infection. The patient has been on IV Rocephin at the [facility] since 10/23/16. Clinically, the wound does not appear infected, but apparently there has been some regression of the wound. Dr. Toro plans to take the patient to the OR tomorrow for I & D with possible skin graft placement. ESR and CRP noted Get blood cultures x 2 sets now. Will defer imaging orders to the podiatry team. Continue wound care and activity restrictions per the podiatry team. The patient does not appear toxic and she has no SIRS criteria. Hold antibiotics until after surgery to get cultures. The patient has already been on IV Rocephin for two weeks, so I am concerned that cultures will not grow anything. d/c all antibiotics and observe all cultures negative, clinically no signs of infection even though xray from october 15 states positive early osteo d/w Dr. Toro at length, he's not convinced there is any infection patient instructed to call if she starts having erythema, pain, drainage, swelling, fevers or chills. will follow prn d/w Franck from podiatry service and with outsole caser Qualifiers: Qualified Code(s): M86.8X7 - Other osteomyelitis, ankle and foot (2) Right foot ulcer Current Visit: Yes Status: Acute secondary to PVD s/p angiogram with right posterior tibial artery angioplasty. stable Qualifiers: Qualified Code(s): L97.513 - Non-pressure chronic ulcer of other part of right foot with necrosis of muscle (3) Obesity (BMI 30-39.9) Current Visit: No Status: Acute (4) Diabetes mellitus Current Visit: Yes Status: Chronic Qualifiers: Qualified Code(s): E11.621 - Type 2 diabetes mellitus with foot ulcer; L97.509 - Non-pressure chronic ulcer of other part of unspecified foot with unspecified severity; Z79.4 - custodial (current) use of insulin (5) Atrial fibrillation Current Visit: Yes Status: Chronic Qualifiers: Qualified Code(s): I48.0 - Paroxysmal atrial fibrillation - Subjective Interval history: patient seen and examined. laying in bed, appears comfortable. no chest pain no shortness of breath, no cough, no diarrhea, no urinary symptoms I had a long discussion with Dr. Toro and his staff on the patient. initially xray of foot on october 15 positive for early osteomyelitis but dr toro intra op said there was no signs of infection and he's not convinced that there is any infection and he recommended no antibiotics Infect Dis PN-Objective Data - Labs CBC & Chem 7: 11/08/16 04:00 11/11/16 12:48 Labs: Laboratory Results - last 24 hr 11/10/16 11/10/16 11/10/16 10:50 16:59 20:48 Sodium Potassium Chloride Carbon Dioxide BUN Creatinine Est GFR ( Amer) Est GFR (Non-Af Amer) BUN/Creatinine Ratio Glucose POC Glucose 204 H 177 H 300 H Calculated Osmolality Calcium Vancomycin Trough 11/11/16 11/11/16 11/11/16 08:33 10:59 11:51 Sodium Potassium Chloride Carbon Dioxide BUN Creatinine Est GFR ( Amer) Est GFR (Non-Af Amer) BUN/Creatinine Ratio Glucose POC Glucose 144 H 216 H Calculated Osmolality Calcium Vancomycin Trough 39.4 H* 11/11/16 12:48 Sodium 141 Potassium 4.0 Chloride 106 Carbon Dioxide 25 BUN 18 Creatinine 1.06 Est GFR ( Amer) > 60 Est GFR (Non-Af Amer) 53 L BUN/Creatinine Ratio 17 Glucose 208 H POC Glucose Calculated Osmolality 300 Calcium 9.2 Vancomycin Trough Cultures: Cultures 11/06/16 12:02 Blood Culture - Preliminary Peripheral Venipuncture No growth. 11/06/16 11:56 Blood Culture - Preliminary Peripheral Venipuncture No growth. Exam - Constitutional Vitals: Temp Pulse Resp BP Pulse Ox 97.9 F 69 18 110/68 92 11/11/16 10:54 11/11/16 10:54 11/11/16 10:54 11/11/16 10:54 11/11/16 10:54 General appearance: cooperative, no acute distress, no febrile - Respiratory Respiratory exam: Present: CTAB. Absent: rhonchi, wheezes - Cardiovascular Cardiovascular exam: Present: RRR, +S1, +S2 - GI/Abdominal GI/Abdominal exam: Present: normal bowel sounds, soft. Absent: tenderness - Extremities Exam Additional comments: wound vac intact. wrapped - VTE Documentation of Mechanical Device: Intermittent pneumatic compression device Consult Discharge Plan - Plan Referrals: Gildardo Hamilton MD [Partnered Physician] - (Cardiology will call patient at home with follow up appointment, due to they make their own appointments.)
--- NOTE | 2016-11-11 16:24 | Discharge Summary ---
Date of Encounter: 11/11/16 Time of Encounter: 16:00 - Discharge Diagnosis (1) Diabetes mellitus Priority: Primary Status: Chronic Qualifiers: Diabetes mellitus type: type 2 Diabetes mellitus complication status: with skin complications Diabetes mellitus complication detail: with foot ulcer Diabetes mellitus watermaster insulin use: with custodial use Qualified Code(s) : E11.621 - Type 2 diabetes mellitus with foot ulcer; L97.509 - Non-pressure chronic ulcer of other part of unspecified foot with unspecified severity; Z79.4 - residential (current) use of insulin (2) Cellulitis and abscess of foot Priority: Primary Status: Acute (3) Chronic venous hypertension (idiopathic) with ulcer of left lower extremity Priority: Primary Status: Chronic (4) Right foot ulcer Priority: Primary Status: Acute Qualifiers: Non-pressure ulcer stage: with necrosis of muscle Qualified Code(s): L97.513 - Non-pressure chronic ulcer of other part of right foot with necrosis of muscle (5) Atherosclerosis of [place] artery of both lower extremities with bilateral ulceration Priority: Primary Status: Chronic Qualifiers: Lower extremity ulceration location: other part of foot Qualified Code(s): I70.235 - Atherosclerosis of three [place] arteries of right leg with ulceration of other part of foot; I70.245 - Atherosclerosis of [place] arteries of left leg with ulceration of other part of foot (6) Chronic kidney disease Priority: Secondary Status: Chronic Qualifiers: Chronic kidney disease stage: stage 3 (moderate) Qualified Code(s): N18.3 - Chronic kidney disease, stage 3 (moderate) - Discharge Medications Home Medications: Gabapentin [Neurontin] 600 mg PO BID 02/02/15 [History] [place] Oil/[place]-3 Fatty Acids [Fish Oil 500 mg Softgel] 2 cap PO DAILY [History] Atorvastatin [Lipitor] 10 mg PO HS 07/18/15 [History] Furosemide [Lasix] 40 mg PO DAILY 07/18/15 [History] Sertraline [Zoloft] 100 mg PO DAILY 07/18/15 [History] Loratadine [Allergy Relief] 10 mg PO DAILY 06/17/16 [History] Mirtazapine [Remeron] 30 mg PO HS 06/17/16 [History] Albuterol Sulfate [Albuterol Inhaler] 2 puff IH Q6HR PRN 07/31/16 [History] Acetaminophen [Tylenol] 1,000 mg PO Q6HR PRN 11/06/16 [History] Arginine/Glutamine/Calcium Hmb [Nikita Packet] 1 packet PO DAILY 11/06/16 [ History] Ergocalciferol (VITAMIN D2) [Vitamin D2] 50,000 units PO QWEEK 11/06/16 [History ] Insulin LISPRO [Humalog Kwikpen U-100] 2 - 8 unit SQ TID MDD PER SLIDING SCALE 11/06/16 [History] Metoprolol [Lopressor] 100 mg PO BID 11/06/16 [History] Multivitamin,Stress Formula/Zn [Stress B with Zinc Tablet] 1 tab PO DAILY [History] Sennosides/Docusate Sodium [Senna-S Tablet] 1 tab PO BID PRN 11/06/16 [History] Clopidogrel [Plavix] 75 mg PO DAILY tablet 11/11/16 [Rx] Insulin DETEMIR [Levemir] 15 unit SQ BID [id number] 11/11/16 [Rx] Insulin LISPRO [HumaLOG] 0 units SQ TIDAC vial 11/11/16 [Rx] Rivaroxaban [Xarelto] 15 mg PO 1700 tablet 11/11/16 [Rx] amLODIPine [Norvasc] 5 mg PO DAILY tablet 11/11/16 [Rx] Allergies/Adverse Reactions: Allergies codeine Allergy (Verified 07/26/16 00:49) See Comments Unknown reaction. Paroxetine [From Paxil] Allergy (Verified 07/26/16 00:49) See Comments Unknown reaction. Penicillins Allergy (Verified 07/26/16 00:49) See Comments Unknown reaction. Procedures and tests throughout hospitalization: All Lab Results (24 Hours) 11/10/16 11/10/16 11/10/16 Range/Units 10:50 16:59 20:48 Sodium (136-145) mEq/L Potassium (3.5-4.5) mEq/L Chloride (98-109) mEq/L Carbon Dioxide (19-29) mEq/L BUN (7-20) mg/dL Creatinine (0.57-1.11) mg/dL Est GFR ( Amer) (> 60) Est GFR (Non-Af Amer) (> 60) BUN/Creatinine Ratio (6-26) Glucose (70-99) mg/dL POC Glucose 204 H 177 H 300 H (58-89) Calculated Osmolality (280-300) Calcium (8.6-10.8) mg/dL Vancomycin Trough (10-20) mcg/mL 11/11/16 11/11/16 11/11/16 Range/Units 08:33 10:59 11:51 Sodium (136-145) mEq/L Potassium (3.5-4.5) mEq/L Chloride (98-109) mEq/L Carbon Dioxide (19-29) mEq/L BUN (7-20) mg/dL Creatinine (0.57-1.11) mg/dL Est GFR ( Amer) (> 60) Est GFR (Non-Af Amer) (> 60) BUN/Creatinine Ratio (6-26) Glucose (70-99) mg/dL POC Glucose 144 H 216 H (58-89) Calculated Osmolality (280-300) Calcium (8.6-10.8) mg/dL Vancomycin Trough 39.4 H* (10-20) mcg/mL 11/11/16 Range/Units 12:48 Sodium 141 (136-145) mEq/L Potassium 4.0 (3.5-4.5) mEq/L Chloride 106 (98-109) mEq/L Carbon Dioxide 25 (19-29) mEq/L BUN 18 (7-20) mg/dL Creatinine 1.06 (0.57-1.11) mg/dL Est GFR ( Amer) > 60 (> 60) Est GFR (Non-Af Amer) 53 L (> 60) BUN/Creatinine Ratio 17 (6-26) Glucose 208 H (70-99) mg/dL POC Glucose (58-89) Calculated Osmolality 300 (280-300) Calcium 9.2 (8.6-10.8) mg/dL Vancomycin Trough (10-20) mcg/mL Temp Pulse Resp BP Pulse Ox 97.9 F 69 18 110/68 92 11/11/16 10:54 11/11/16 10:54 11/11/16 10:54 11/11/16 10:54 11/11/16 10:54 Labs on day of discharge: Labs from last 24 hours 11/11/16 11/11/16 11/11/16 12:48 11:51 10:59 Sodium 141 Potassium 4.0 Chloride 106 Carbon Dioxide 25 BUN 18 Creatinine 1.06 Est GFR ( Amer) > 60 Est GFR (Non-Af Amer) 53 L BUN/Creatinine Ratio 17 Glucose 208 H POC Glucose 216 H Calculated Osmolality 300 Calcium 9.2 Vancomycin Trough 39.4 H* 11/11/16 11/10/16 11/10/16 08:33 20:48 16:59 Sodium Potassium Chloride Carbon Dioxide BUN Creatinine Est GFR ( Amer) Est GFR (Non-Af Amer) BUN/Creatinine Ratio Glucose POC Glucose 144 H 300 H 177 H Calculated Osmolality Calcium Vancomycin Trough 11/10/16 10:50 Sodium Potassium Chloride Carbon Dioxide BUN Creatinine Est GFR ( Amer) Est GFR (Non-Af Amer) BUN/Creatinine Ratio Glucose POC Glucose 204 H Calculated Osmolality Calcium Vancomycin Trough Preliminary micro results at discharge 11/06/16 12:02 Blood Culture - Preliminary Peripheral Venipuncture No growth. 11/06/16 11:56 Blood Culture - Preliminary Peripheral Venipuncture No growth. Date of admission: 11/06/16 11:01 Primary care physician: PCP NO Consults: 11/06/16 10:59 Consult to Hospitalist [CONS] Routine Consulting Provider: Hospitalist Jordon Reason for Consult: Diabetes mellitus type 2 with multiple comorbidities Time Notified: 11:00 Call Completed: Yes 11/06/16 11:05 Consult to Infectious Diseases [CONS] Stat Consulting Provider: Infectious Disease [place] Reason for Consult: FOOT INFECTION Time Notified: 11:06 Call Completed: Yes 11/06/16 11:45 Consult to High School Admissions Representative [CONS] Routine Reason for SW Consult: Patient currently residing in [facility], wants to return at discharge 11/06/16 17:13 Consult to Vascular Surgery [CONS] Routine Consulting Provider: Vascular Surgery Janine Reason for Consult: Abnormal ankle brachial index and presence of nonhealing wound Time Notified: 17:15 Call Completed: Yes Discharging clinician: Franck Rodriguez Anticipated date of discharge: 11/11/16 - Patient Status Disposition: Transfer SNF Condition: Fair Functional capacity at discharge: uses cane/walker Overall status at discharge: patient is progressing back to baseline - Discharge Instructions Follow Up With: Gildardo Hamilton MD [Partnered Physician] - (Cardiology will call patient at home with follow up appointment, due to they make their own appointments.) Davie Toro DPM [Partnered Physician] - 11/20/16 (In wound care center.) Carlitos Kat MD [Partnered Physician] - (Office is closed at this time. Please call the office for date and time of appt. Thank you) Additional Instructions: 1.Wound vac: Small black simplace wound vac sponge connected to 125 mmhg low continuous suction. Change every M-W-F. Apply wound vac sponge to right heel ulcer and bridge to ulcer at medial aspect. 2. Nonweight bearing to right foot with use of walker. 3. Xarelto decreased to 15 mg daily. 4. Levemir decreased to 15 units SQ BID. 5. F/u with Dr. Toro in wound care on 11/20/16. 6. F/u with Vascular with in two weeks of discharge from hospital. - Diet and Activity Activity: ambulate only with your walker (non weight bearing to right foot. ) Diet: diabetic diet - Hospital Course Hospital course: Ms. Rascon is a 61 year old female admitted to [facility] on 11/06/16 for ulcerations to the right foot. Patient has a medical history significant for DM , hypertension, hyperlipidemia, a fib, CHF, PVD and CVA. Patient underwent previous debridements at [place] with amputation of right great toe and portion of metatarsal as well as debridement of medial heel. Patient was evaluated by Dr. Toro in wound care clinic for a non healing surgical wound. Patient had an xray on 10/16/16 that suspected subacute osteomyelitis of the right calcaneus. Wound cultures from 10/16/16 isolated E. Coli. Infectious disease was consulted for management of IV antibiotic therapy. Patient had been on IV Rocephin since 10/23/2016. Vascular was consulted for PVD. Patient underwent a peripheral angiogram with right posterior tibial artery angioplasty by Dr. Kat on . Patient was started on Plavix after procedure and and will continue upon discharge. The Hospitalist was consulted for management of comorbidities. Dr. Toro took patient to the OR on 11/08/16 for I&D and debridement of all necrotic tissue multiple areas right foot and application of wound VAC. After surgery patient was started on IV Cefepime and Vancomycin. Patients condition improved and will be discharged back to [facility]. No evidence of Osteomyelitis and wounds were clean per Op report. Blood Cultures were negative. All antibiotics were discontinued. Patient will be discharged with wound vac to be changed every M-W-. Patient will need a f/u with Vascular. All home medications will be resumed with the addition of Plavix daily and Levemir 15 units SQ BID. Xarelto was decreased to 15 mg PO daily. - Time Spent with Patient Total time spent providing and/or coordinating discharge services: - VTE Documentation of Mechanical Device: Intermittent pneumatic compression device
--- NOTE | 2016-11-11 17:31 | Physician Discharge Referral ---
ExtendedCare Referral Info Transfer To: ECF Provider in Charge: Muna Provider in Charge after Transfer: Other Institutional Level of Care: Skilled - Diagnosis (1) Cellulitis and abscess of foot Status: Acute (2) Right foot ulcer Status: Acute Expected Duration of Placement: 100 days Prognosis: Fair Aware of Diagnosis: Patient Aware of Prognosis: Patient - Transfer Medications Home Medications: Gabapentin [Neurontin] 600 mg PO BID 02/02/15 [History] [place] Oil/[place]-3 Fatty Acids [Fish Oil 500 mg Softgel] 2 cap PO DAILY [History] Atorvastatin [Lipitor] 10 mg PO HS 07/18/15 [History] Furosemide [Lasix] 40 mg PO DAILY 07/18/15 [History] Sertraline [Zoloft] 100 mg PO DAILY 07/18/15 [History] Loratadine [Allergy Relief] 10 mg PO DAILY 06/17/16 [History] Mirtazapine [Remeron] 30 mg PO HS 06/17/16 [History] Albuterol Sulfate [Albuterol Inhaler] 2 puff IH Q6HR PRN 07/31/16 [History] Acetaminophen [Tylenol] 1,000 mg PO Q6HR PRN 11/06/16 [History] Arginine/Glutamine/Calcium Hmb [Nikita Packet] 1 packet PO DAILY 11/06/16 [ History] Ergocalciferol (VITAMIN D2) [Vitamin D2] 50,000 units PO QWEEK 11/06/16 [History ] Insulin LISPRO [Humalog Kwikpen U-100] 2 - 8 unit SQ TID MDD PER SLIDING SCALE 11/06/16 [History] Metoprolol [Lopressor] 100 mg PO BID 11/06/16 [History] Multivitamin,Stress Formula/Zn [Stress B with Zinc Tablet] 1 tab PO DAILY [History] Sennosides/Docusate Sodium [Senna-S Tablet] 1 tab PO BID PRN 11/06/16 [History] Clopidogrel [Plavix] 75 mg PO DAILY tablet 11/11/16 [Rx] Insulin DETEMIR [Levemir] 15 unit SQ BID [id number] 11/11/16 [Rx] Insulin LISPRO [HumaLOG] 0 units SQ TIDAC vial 11/11/16 [Rx] Rivaroxaban [Xarelto] 15 mg PO 1700 tablet 11/11/16 [Rx] amLODIPine [Norvasc] 5 mg PO DAILY tablet 11/11/16 [Rx] Allergies/Adverse Reactions: Allergies codeine Allergy (Verified 07/26/16 00:49) See Comments Unknown reaction. Paroxetine [From Paxil] Allergy (Verified 07/26/16 00:49) See Comments Unknown reaction. Penicillins Allergy (Verified 07/26/16 00:49) See Comments Unknown reaction. - Respiratory Orders Smoking Cessation: Smoking cessation has been advised. For more information, call the [place] Tobacco Quit Line at 4-755-FTME-NOW. - Ancillary Orders May use pressure relief devices daily prn - Advance Directives Living Will: Yes Power of Food Mixer Repairer: Yes Code Status: Full Code - Mobility Orders Ambulate (With assistence and no weight to right foot) CERTIFICATION: I certify that the transfer of the above named patient to an Extended Care Facility is necessary for the continuing treatment of the diagnosis listed. The above information is true and accurate reflection of patient's current condition. Confidential - Redisclosure prohibited without a patient's written consent.
[2016-11-11] MEDS ORDERED: Aminoglycoside Consult 1 EACH MC ONE (18:21)
[2016-11-11] MEDS ORDERED: Insulin DETEMIR 100 UNIT/ML X5UNITS SQ SCH (21:00)
[2016-11-12] MEDS ORDERED: *HR* Rivaroxaban 15 MG TABLET PO SCH (17:00)
== END 2016-11-11 18:22 | DRG 623 ==
LOC: 3ANU → 2NNU 11-07 15:13 → 3ANU 11-08 16:18
PROVIDERS: ADMIT Podiatrist Foot Surgery; ATTEND Podiatrist Foot Surgery

== ENCOUNTER 2016-12-11 16:23 | Inpatient (IN) ==
[2016-12-11] MEDS ORDERED: Acetaminophen 325 MG TABLET PO PRN (19:06)
[2016-12-11] MEDS ORDERED: Naloxone 0.4 MG/ML INJ IVP PRN (19:06)
[2016-12-11] MEDS ORDERED: 0.9 % Sodium Chloride 1,000 ML ONE (19:07)
[2016-12-11] MEDS ORDERED: *HR* Dextrose 50 % in Water (Syg) 50 ML SYRINGE IVP PRN (19:12)
[2016-12-11] MEDS ORDERED: Dextrose Gel 15 GM PO PRN ×2 (19:12)
[2016-12-11] MEDS ORDERED: D5% in Water 1,000 ML IVC PRN (19:12)
[2016-12-11] MEDS: 0.9 % Sodium Chloride 1,000 ML IVC SCH (19:23)
--- NOTE | 2016-12-11 19:33 | Internal Med History&Physical ---
<Gatito Judge - Last Filed: 12/11/16 20:03> Date of Encounter: 12/11/16 Time of Encounter: 19:27 Assessment and Plan (1) Sepsis Current visit: Yes Status: Acute With tachycardia, WBC 19k, fever. secondary to right foot chronic non healing wound. Lactic acid normal. IV bolus started on arrival. Received Vanco and rocephin at OSH. IVF, vanco, zosyn, and clindamycin. Transfer to step-down for a higher level of care. Blood, wound cultures pending. Qualifiers: Sepsis type: sepsis due to unspecified organism Qualified Code(s): A41.9 - Sepsis, unspecified organism (2) Osteomyelitis Current visit: No Status: Acute Known hx of right foot osteo. Follows with Dr. Toro, has had multiple debridements. Rt foot CT suggestive of osteomyelitis and possible gas forming organism. Discussed case with Dr. Toro. Notified of OSH rt foot x-ray results , will change ATB to IV vanco, zosyn and clindamycin. Dr. Toro consulted. Qualifiers: Osteomyelitis type: chronic multifocal Osteomyelitis location: foot Laterality: right Qualified Code(s): M86.371 - Chronic multifocal osteomyelitis, right ankle and foot (3) Atrial fibrillation Current visit: No Status: Acute Known hx a-fib no RVR hr 120-150's likely d/t sepsis. Cardizem bolus followed by gtt. Hemodynamically stable BP normotensive. Resume home BB as BP allows. Continue Xarelto. Qualifiers: Atrial fibrillation type: paroxysmal Qualified Code(s): I48.0 - Paroxysmal atrial fibrillation (4) RANCHO (acute kidney injury) Current visit: Yes Status: Acute Cr 1.7 baseline normal, Likely secondary to hypoperfusion with sepsis. Given IVF bolus started on admission followed with maintenance IV, huff catheter, strick I&O, monitor renal function. Holding home diuretic. (5) HTN (hypertension) Current visit: Yes Status: Acute per hx. BP stable, monitor closely with cardizem gtt. Resume home BB as BP allows. Qualifiers: Hypertension type: essential hypertension Qualified Code(s): I10 - Essential (primary) hypertension (6) Diabetes mellitus Current visit: No Status: Chronic Per hx. controll unknown. Home insulin dose unknown per MED REC. SSI for now monitor BG titrate prn HGB a1c pending Qualifiers: Diabetes mellitus type: type 2 Diabetes mellitus complication status: with skin complications Diabetes mellitus complication detail: with foot ulcer Diabetes mellitus fdc insulin use: with fdc use Qualified Code(s) : E11.621 - Type 2 diabetes mellitus with foot ulcer; L97.509 - Non-pressure chronic ulcer of other part of unspecified foot with unspecified severity; Z79.4 - medical terminologist (current) use of insulin (7) DVT prophylaxis Current visit: Yes Status: Acute xarelto Internal Medicine - H&P: HPI Chief complaint: fever, elevated WBC, sepsis Admitted From: Home Plans for Post Hospital Care: Transfer [facility] History of present illness: Ms. Rascon is a 61 year old female with a PMH of a-fib, on xarelto, DM, HTN and a chronic non-healing diabetic ulcer. Who presented to OSH from an ECF with a low-grade fever, leukocytosis. She was transferred to [facility] on 12-11-16 for further workup and treatment. Information obtained from chart review and outside hospital record review. Chronic Rt foot non-healing diabetic ulcer. Follows with Dr. Toro and has had multiple debridements. New blister to Rt foot , fevered and elevated WBC at ECF. On exam she admits to being tired and sick and feels like her heart is racing. Denies SOB or chest pain an not Rt foot pain. Past Med Surg Social Fam HX - Past Medical History Medical history: arthritis, atrial fibrillation, coronary artery disease, DVT, diabetes, hyperlipidemia, hypertension, pulmonary embolus, renal disease Psychiatric history: anxiety, depression - Past Surgical History Surgical History: other - Social History Smoking Status: Current every day smoker Smokeless Tobacco Status: No Alcohol use: none Drug use: none - Family History Mother Family Member Ethnicity: Non- Twin of Family Member: Yes, Identical Living Status: Hx Family Cardiac Disorders: Yes Hx Family Respiratory Disorders: No Hx Family Cancer: Yes (aunt) Hx Family GI Disorders: Yes Hx Family Endocrine Disorder: Yes Hx Family Neurologic Disorders: Yes Hx Family HEENT Disorders: No Hx Family Autoimmune Disorders: No Father Living Status: Hx Family Cardiac Disorders: Yes Hx Family Endocrine Disorder: Yes (diabetes) Brother Hx Family Endocrine Disorder: Yes (diabetes) Internal Medicine - H&P: Meds Gabapentin [Neurontin] 600 mg PO BID 02/02/15 [History] [place] Oil/[place]-3 Fatty Acids [Fish Oil 500 mg Softgel] 2 cap PO DAILY [History] Atorvastatin [Lipitor] 10 mg PO HS 07/18/15 [History] Furosemide [Lasix] 40 mg PO DAILY 07/18/15 [History] Sertraline [Zoloft] 100 mg PO DAILY 07/18/15 [History] Loratadine [Allergy Relief] 10 mg PO DAILY 06/17/16 [History] Mirtazapine [Remeron] 30 mg PO HS 06/17/16 [History] Albuterol Sulfate [Albuterol Inhaler] 2 puff IH Q6HR PRN 07/31/16 [History] Acetaminophen [Tylenol] 1,000 mg PO Q6HR PRN 11/06/16 [History] Arginine/Glutamine/Calcium Hmb [Nikita Packet] 1 packet PO DAILY 11/06/16 [ History] Ergocalciferol (VITAMIN D2) [Vitamin D2] 50,000 units PO QWEEK 11/06/16 [History ] Insulin LISPRO [Humalog Kwikpen U-100] 2 - 8 unit SQ TID MDD PER SLIDING SCALE 11/06/16 [History] Metoprolol [Lopressor] 100 mg PO BID 11/06/16 [History] Multivitamin,Stress Formula/Zn [Stress B with Zinc Tablet] 1 tab PO DAILY [History] Sennosides/Docusate Sodium [Senna-S Tablet] 1 tab PO BID PRN 11/06/16 [History] Clopidogrel [Plavix] 75 mg PO DAILY tablet 11/11/16 [Rx] Insulin DETEMIR [Levemir] 15 unit SQ BID [id number] 11/11/16 [Rx] Rivaroxaban [Xarelto] 15 mg PO 1700 tablet 11/11/16 [Rx] amLODIPine [Norvasc] 5 mg PO DAILY tablet 11/11/16 [Rx] Insulin LISPRO [HumaLOG] 8 units SQ TIDAC 12/11/16 [History] Allergies codeine Allergy (Verified 07/26/16 00:49) See Comments Unknown reaction. Paroxetine [From Paxil] Allergy (Verified 07/26/16 00:49) See Comments Unknown reaction. Penicillins Allergy (Verified 07/26/16 00:49) See Comments Unknown reaction. All Systems PM: A 10-system review of systems was performed and is negative for pertinent findings except as documented above in the HPI. - Constitutional Constitutional: fatigue, weakness, no chills, no fever(s), no night sweats - EENT Eyes: no change in vision, no discharge, no pain, no photophobia Ears: no ear discharge, no ear pain, no tinnitus Nose, mouth and throat: no dysphagia, no nasal discharge, no neck pain, no sore throat - Cardiovascular Cardiovascular ROS IM: palpitations, no chest pain, no diaphoresis, no dyspnea, no lightheadedness, no syncope - Respiratory Respiratory: no cough, no dyspnea, no wheezing, no excessive phlegm production - Gastrointestinal Gastrointestinal: no abdominal pain, no diarrhea, no hematemesis, no hematochezia, no melena, no nausea, no vomiting - Genitourinary Genitourinary: no change in urinary stream, no dysuria, no flank pain, no hematuria - Musculoskeletal Musculoskeletal ROS IM: no numbness, no tingling - Integumentary Integumentary IM: no rash, no unusual bruising - Neurological Neurological ROS: no confusion, no convulsions, no focal weakness, no numbness, no tingling, no tremor(s) - Hematologic/Lymphatic Hematologic/Lymphatic: no easy bruising - Constitutional General appearance: Present: answers questions appropriately - Head Head exam: Present: atraumatic, normocephalic - Eye Eye exam: Present: PERRL, conjuntiva pink, sclera anicteric Pupils: Present: PERRL - Neck Neck exam general surgery: Present: supple, trachea midline. Absent: lymphadenopathy - Respiratory Respiratory exam: Present: CTAB. Absent: accessory muscle use, rales, rhonchi, wheezes - Cardiovascular Cardiovascular exam: Present: irregular rhythm, +S1, +S2, tachycardia. Absent: diastolic murmur, gallop, rubs, systolic murmur - GI/Abdominal GI/Abdominal exam: Present: normal bowel sounds, soft, no peritoneal signs. Absent: distended, tenderness - Extremities Exam Extremities exam: Present: warm, radial pulses palpable and symetrical. Absent : calf tenderness, cyanotic, pedal edema Additional comments: RLE edema, red with open wound on right heel with black fluid filled blister midfoot - Neurological Exam Neurological exam: Present: CN II-XII intact, oriented X3, no focal deficits. Absent: pronater drift, facial droop, speech deficit Additional comments: drowsy but oriented - Skin Skin exam: Present: dry, intact Internal Med - H&P Results - Labs CBC & Chem 7: 12/11/16 19:46 <ShaanDarion - Last Filed: 12/12/16 03:36> Date of Encounter: 12/11/16 Internal Medicine - H&P: HPI History of present illness: Ms. Rascon is a 61 year old female Past Med Surg Social Fam HX - Past Surgical History Surgical History: other (Left foot TMA secondary to infection) All Systems PM: A 10-system review of systems was performed and is negative for pertinent findings except as documented above in the HPI. - Constitutional Vitals: Temp Pulse Resp BP Pulse Ox 97.3 F L 111 16 110/77 95 12/12/16 00:15 12/12/16 00:30 12/12/16 00:15 12/12/16 00:15 12/12/16 00:15 Internal Med - H&P Results - Labs CBC & Chem 7: 12/11/16 19:46 12/11/16 19:46 Labs: Short CBC 12/11/16 Range/Units 19:46 WBC 21.1 H (4.3-11.1) K/mcL Hgb 11.5 (11.5-15.4) g/dL Hct 37.3 (35.3-44.9) % Plt Count 275 (140-400) K/mcL BMP 12/11/16 19:46 Sodium 133 L Potassium 4.3 Chloride 103 Carbon Dioxide 24 BUN 27 H Creatinine 1.33 H Glucose 253 H Calcium 8.2 L Liver Function 12/11/16 Range/Units 19:46 Total Bilirubin 0.6 (0.2-1.2) mg/dL AST 40 H (5-34) Units/L ALT 29 (0-55) Units/L Alkaline Phosphatase 125 (38-126) Units/L Albumin 2.1 L (3.5-5.0) g/dL - ABG Interpretation ABG results: 12/11/16 22:42 ABG pH 7.27 L ABG pCO2 53 H ABG pO2 98 ABG HCO3 24.3 ABG Total CO2 25.9 ABG O2 Saturation 97 ABG Base Excess -3.0 L - Impressions ITS Impressions Head CT 12/11/16 21:17 IMPRESSION: No acute intracranial abnormality. D/ / José Shanks MD / José Shanks MD Interpreting Provider: José Shanks MD - Attending Attestation I examined this patient and my medical decision-making was reviewed with the Advanced Nurse Practitioner. I agree with the documented findings, disposition and treatment plan as described. Darion Garduno MD, MPH Hospitalist
[2016-12-11 19:58] LABS: Hematocrit 37.3 % (35.3-44.9); Hemoglobin 11.5 g/dL (11.5-15.4); Mean Corpuscular HGB Conc 30.8 g/dL (31.6-35.5); Mean Corpuscular Hemoglobin 27.6 pg (28.0-33.3); Mean Corpuscular Volume 89.7 fL (83.0-100.0); Mean Platelet Volume 11.4 fL (9.4-12.4); Platelet Count 275 K/mcL (140-400); Red Blood Count 4.16 M/mcL (3.82-4.97); Red Cell Distribution Width 14.9 % (11.5-14.5)
[2016-12-11] MEDS ORDERED: Vancomycin 0 MG in D5% in Water 250 ML IVPB SCH (20:00)
[2016-12-11 20:12] LABS: Hemoglobin A1C 8.5 %
[2016-12-11 20:13] LABS: Albumin 2.1 g/dL (3.5-5.0); Albumin/Globulin Ratio 0.4 (1.1-2.2); Bilirubin,Total 0.6 mg/dL (0.2-1.2); Calcium 8.2 mg/dL (8.6-10.8); Globulin 5.2 g/dL (2.4-3.5); Potassium 4.3 mEq/L (3.5-4.5); Total Protein 7.3 g/dL (6.0-8.3)
[2016-12-11] MEDS ORDERED: 0.9 % Sodium Chloride 1,000 ML IVC ONE (21:02)
[2016-12-11] MEDS: Insulin LISPRO 300 UNITS/3 ML VIAL SQ SCH (21:04)
[2016-12-11 22:54] LABS: ABG HCO3 24.3 mEQ/L (21-27); ABG Oxygen Saturation 97 % (95-98); ABG PCO2 53 mmHg (35-45); ABG PH 7.27 pH Units (7.32-7.45); ABG PO2 98 mmHg (85-104); ABG TCO2 25.9 mEq/L (20-26)
[2016-12-11 22:55] LABS: Blood Gas FiO2 32 %; Blood Gas Liter Flow 3 L/MIN
[2016-12-12] MEDS: Clindamycin 600 MG/50 ML 600 MG/50 ML IV.SOLN IVPB SCH ×2 (00:34→08:23)
[2016-12-12] MEDS: Piperacillin/Tazobactam 3.375 GM in D5% in Water (Mini-Bag+) 100 ML IVPB SCH ×3 (00:34→15:51)
[2016-12-12 06:09] LABS: Basophils % 0.3 %; Eosinophils # 0.3 K/mcL (0.0-0.6); Eosinophils % 2.6 %; Hematocrit 37.4 % (35.3-44.9); Hemoglobin 11.4 g/dL (11.5-15.4); Immature Granulocytes % 0.6 % (0-4); Lymphocytes # 1.1 K/mcL (0.6-4.6); Lymphocytes % 8.4 %; Mean Corpuscular HGB Conc 30.5 g/dL (31.6-35.5); Mean Corpuscular Hemoglobin 27.9 pg (28.0-33.3); Mean Corpuscular Volume 91.4 fL (83.0-100.0); Mean Platelet Volume 11.3 fL (9.4-12.4); Monocytes # 0.7 K/mcL (0.0-1.3); Monocytes % 5.8 %; Neutrophils # 10.3 K/mcL (1.6-8.9); Platelet Count 242 K/mcL (140-400); Red Blood Count 4.09 M/mcL (3.82-4.97); Red Cell Distribution Width 14.9 % (11.5-14.5); Segmented Neutrophils % 82.3 %
[2016-12-12 06:29] LABS: Albumin/Globulin Ratio 0.4 (1.1-2.2); Bilirubin,Total 0.3 mg/dL (0.2-1.2); Calcium 8.4 mg/dL (8.6-10.8); Globulin 5.1 g/dL (2.4-3.5); Potassium 4.3 mEq/L (3.5-4.5); Total Protein 7.1 g/dL (6.0-8.3)
[2016-12-12] MEDS: 0.9 % Sodium Chloride 1,000 ML IVC SCH (08:23)
[2016-12-12] MEDS: Insulin LISPRO 300 UNITS/3 ML VIAL SQ SCH ×4 (08:24→23:59)
[2016-12-12] MEDS: Vancomycin 1,000 MG in D5% in Water 250 ML IVPB SCH (12:01)
--- NOTE | 2016-12-12 14:07 | Infectious Disease Consult ---
Date of Encounter: 12/12/16 Time of Encounter: 13:56 Assessment and Plan (1) Sepsis Status: Acute Assessment and plan: The patient had three SIRS criteria plus RANCHO on admission. Likely secondary to right foot osteomyelitis. Improved. The patient has been afebrile overnight. WBC trending down. RANCHO improved. Blood cultures drawn in the ER at [facility] are pending x 2 sets. Qualifiers: Sepsis type: sepsis due to unspecified organism Qualified Code(s): A41.9 - Sepsis, unspecified organism (2) Acute osteomyelitis of right calcaneus Status: Acute Assessment and plan: Location: Right calcaneus. Causative organism: P. mirabilis and E. coli per previous wound culture and bone biopsy. Concern for anaerobes as well given the soft tissue gas on the x- ray. Secondary to non-healing diabetic foot ulcer. Right foot XR completed in the ED showed large soft tissue ulceration to the plantar aspect of the hindfoot with erosive changes and changes consistent with osteomyelitis of the calcaneus. Soft tissue gas noted on the x-ray concerning for gas-forming organism as well. Vascular surgery consulted. The patient is scheduled for right BKA tomorrow. Will defer additional workup since the patient is scheduled for BKA tomorrow. Continue Vancomycin IV. Pharmacy to dose. Goal trough ~15. Discontinue Meropenem. Start Zosyn 3.375 grams IV Q8H. The patient has a PCN allergy listed, but it appears she has received two doses of Zosyn so far and has not had any reaction. Duration of treatment depends on the clinical picture. If blood cultures remain negative, will likely discontinue antibiotics after the patient has her surgery. Monitor renal function and for drug toxicity and dose-adjust antibiotics. (3) RANCHO (acute kidney injury) Status: Acute Assessment and plan: Likely secondary to sepsis. Improved. Continue to trend. Avoid nephrotoxins and dose-adjust antibiotics. (4) Non-healing surgical wound Status: Acute Assessment and plan: Likely secondary to PAD. Continue wound care per the podiatry team. Qualifiers: Encounter type: initial encounter Qualified Code(s): T81.89XA - Other complications of procedures, not elsewhere classified, initial encounter (5) Acute diarrhea Status: Acute Assessment and plan: The patient reports two loose stools per day. Low index of suspicion for C. diff. Likely secondary to recent antibiotic use. Start probiotic. If patient has increase in stool frequency to 4 or more stools per day, consider testing for C. diff. 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 Status: Chronic Qualifiers: Lower extremity ulceration location: other part of foot Qualified Code(s): I70.235 - Atherosclerosis of [place] arteries of right leg with ulceration of other part of foot; I70.245 - Atherosclerosis of [place] arteries of left leg with ulceration of other part of foot (7) Tobacco abuse Status: Chronic (8) HTN (hypertension) Status: Acute Qualifiers: Hypertension type: essential hypertension Qualified Code(s): I10 - Essential (primary) hypertension (9) Diabetes mellitus Status: Chronic Assessment and plan: Recommend aggressive glucose monitoring and control to promote wound healing and prevent re-infection. Qualifiers: Diabetes mellitus type: type 2 Diabetes mellitus complication status: with skin complications Diabetes mellitus complication detail: with foot ulcer Diabetes mellitus mcc insulin use: with joint terminal attack controller use Qualified Code(s) : E11.621 - Type 2 diabetes mellitus with foot ulcer; L97.509 - Non-pressure chronic ulcer of other part of unspecified foot with unspecified severity; Z79.4 - longterm (current) use of insulin Infectious Disease HPI - Data of Consult Patient: known to practice within the last 3 years Consult date: 12/12/16 Requesting Physician: Edgar Gill Primary Care Provider: PCP NONE - Consult Narrative Reason for consult: Right foot osteomyelitis History of present illness: Ms. Rascon is a 61 year old female with a past medical history of arthritis, A. fib, CAD, hyperlipidemia, hypertension, see [facility], and peripheral vascular disease. The patient was admitted to the hospital December 11 for left foot infection. We're consulted December 12 for further evaluation and treatment recommendations regarding left foot osteomyelitis. The patient's a 61-year-old female with past medical history as stated above. The patient was noted to the infectious disease service as we will consult on her case during a previous hospitalization earlier in November. At that time, the patient presented to the hospital with nonhealing ulcers to the right foot status post right great toe amputation in July. The patient had had 2 subsequent I & D's of the foot with antibiotic therapy, but the foot continued to not heal. She was being followed by [facility] who recommended a BKA, but the patient refused. She was admitted here after receiving two weeks of IV Rocephin. At that time, the wounds did not appear infected. She underwent incision and drainage and debridement of all necrotic tissue of multiple areas of the right foot. She was discharged back to rehab without antibiotics. Since then, the patient has continued to have regression of the wounds. A wound culture obtained 11/25 grew P. mirabilis and E. coli. She tells me she was started on an oral antibiotics, but she is not sure which one. She was seen by Dr. Toro on 12/04/16 and had a bone biopsy culture completed that grew E. coli and Proteus mirabilis. Two days ago, she started having fevers , chills, and rigors and developed necrotic blisters to the dorsal/medial and plantar/medial aspects of the right foot. She was transferred to [facility] for further evaluation. Upon arrival, the patient was febrile tachycardic and had leukocytosis with neutrophilic predominance. Additionally she had acute kidney injury. A chest x-ray was completed that was negative. A right foot x- ray showed a large soft tissue ulceration on the plantar aspect of the hindfoot with erosive changes consistent with osteomyelitis. There was also noted to be soft tissue gas concerning for gas-forming organism. Due to the extent of the patient's infection, she was transferred here for further evaluation. Since arrival, the patient has been afebrile and her leukocytosis has improved. Her acute kidney injury has improved as well. A CT of the head was negative. The patient has been evaluated by podiatry and vascular services. She is scheduled to undergo a right [id number] amputation tomorrow. Currently, the patient is on IV meropenem, and IV vancomycin. Previously, she was on Zosyn and clindamycin. We've been asked to evaluate and make further recommendations. During my exam today, the patient states that overall she feels better. She reports fevers and chills and rigors prior to admission. She denies any headache or neck pain. She denies any congestion, earache, or sore throat. She denies chest pain, shortness of breath, or cough. She denies any nausea, vomiting, diarrhea, constipation. She does report a poor appetite and states her blood sugars have been elevated at the group home. She denies any pain at the site of the infection. She states the wounds of the worsening over the past couple of days, although the necrotic blisters are new and was not there when she had her dressing changes last on Friday. She denies any urinary complaints. She denies any abdominal pain. She denies any oral thrush or new skin lesions. CC: Edgar Chavarria-Beznancy Past Med Surg Social Fam HX - Past Medical History Attestation: Yes The following information was validated with the patient. Source: patient, old records reviewed, nursing notes reviewed Medical history: arthritis, atrial fibrillation, coronary artery disease, DVT, diabetes, hyperlipidemia, hypertension, pulmonary embolus, renal disease, other (Non-healing right foot wounds, right foot great toe gangrene, left foot infection) Psychiatric history: anxiety, depression - Past Surgical History Surgical History: other (Left foot TMA secondary to infection) - Social History Smoking Status: Current every day smoker Packs per day: 1 Smokeless Tobacco Status: No Alcohol use: none Drug use: none Occupational status: unemployed Current living situation: [facility] Activity Level: Independent ambulation Recent Out of Country Travel Within the Last 8 Weeks: No Exposure or Possible Exposure to Illness During Travel: No - Family History Mother Family Member Ethnicity: Non- Twin of Family Member: Yes, Identical Living Status: Hx Family Cardiac Disorders: Yes Hx Family Respiratory Disorders: No Hx Family Cancer: Yes (aunt) Hx Family GI Disorders: Yes Hx Family Endocrine Disorder: Yes Hx Family Neurologic Disorders: Yes Hx Family HEENT Disorders: No Hx Family Autoimmune Disorders: No Father Living Status: Hx Family Cardiac Disorders: Yes Hx Family Endocrine Disorder: Yes (diabetes) Brother Hx Family Endocrine Disorder: Yes (diabetes) Infectious Disease-CN:Meds Sertraline [Zoloft] 100 mg PO DAILY 07/18/15 [History] Mirtazapine [Remeron] 30 mg PO HS 06/17/16 [History] Rivaroxaban [Xarelto] 15 mg PO 1700 tablet 11/11/16 [Rx] Atorvastatin [Lipitor] 10 mg PO DAILY 12/12/16 [History] Cholecalciferol (D-3) [Vitamin D] 1,000 unit PO DAILY 12/12/16 [History] Clopidogrel [Plavix] 75 mg PO DAILY 12/12/16 [History] Furosemide [Lasix] 40 mg PO 08,14 12/12/16 [History] Gabapentin [Neurontin] 600 mg PO QID 12/12/16 [History] Insulin Glargine,Hum.rec.anlog [Basaglar Kwikpen U-100] 15 unit SQ BID 12/12/16 [History] Insulin LISPRO [HumaLOG] 2 - 8 units SQ AD PRN 12/12/16 [History] Insulin LISPRO [HumaLOG] 8 units SQ TIDWM 12/12/16 [History] Loratadine [Allergy Relief] 10 mg PO DAILY 12/12/16 [History] Metoprolol [Lopressor] 100 mg PO BID 12/12/16 [History] Multivitamin,Stress Formula [Stress Formula] 1 tab PO DAILY 12/12/16 [History] [place]-3/Dha/Epa/Fish Oil [Fish Oil 1,000 mg Softgel] 1 each PO DAILY 12/12/16 [ History] Potassium Chloride [K-Tab ER] 20 meq PO BID 12/12/16 [History] amLODIPine [Norvasc] 5 mg PO DAILY 12/12/16 [History] Allergies codeine Allergy (Verified 12/12/16 08:39) See Comments Unknown reaction. Paroxetine [From Paxil] Allergy (Verified 12/12/16 08:39) See Comments Unknown reaction. Penicillins Allergy (Verified 12/12/16 08:39) See Comments Unknown reaction. All systems: reviewed and no additional remarkable complaints except as stated Exam - Constitutional Vitals: Temp Pulse Resp BP Pulse Ox 98.0 F 124 16 114/73 95 12/12/16 11:11 12/12/16 12:00 12/12/16 11:11 12/12/16 11:11 12/12/16 11:11 General appearance: cooperative, no acute distress, obese - Head Head exam: Present: atraumatic, normal inspection, normocephalic - Eye Eye exam: Present: EOMI, normal appearance, PERRL Pupils: Present: normal accommodation - ENT ENT exam: Present: mucous membranes moist - Neck Neck exam: Present: normal inspection - Respiratory Respiratory exam: Present: CTAB. Absent: rales, respiratory distress, rhonchi, wheezes - Cardiovascular Cardiovascular exam: Present: irregular rhythm, tachycardia - GI/Abdominal GI/Abdominal exam: Present: normal bowel sounds, soft. Absent: distended, tenderness - Extremities Exam Extremities exam: Present: pedal edema (1+ RLE). Absent: joint swelling, tenderness Additional comments: Surgical site noted to the medial aspect of the right foot, approximately 8cm x 2cm x 0.5cm deep. Wound bed 100% granulation tissue. Stage IV ulcer noted to the right heel, approximately 6cm x 4cm x 3.2 cm deep with obvious tunneling. 80% slough, 20% granulation tissue. Stage II ulcer noted to the medial aspect of the left lower leg, approximately 2.5cm x 0.5cm. Wound bed 100% granulation tissue. - Neurological Exam Neurological exam: Present: alert, oriented X3, no focal deficits - Psychiatric Psychiatric exam: Present: normal affect, normal mood - Skin Skin exam: Present: dry, intact, normal color, warm Infectious Disease CN: Results - Labs CBC & Chem 7: 12/12/16 05:23 12/12/16 05:23 Consult Discharge Plan - Plan Referrals: NONE,PCP [Primary Care Provider] - Marcella Singer EMBEDDED SOFTWARE DEVELOPER [Advanced Practice Nurse] - 12/20/16 11:15 am - Attending Attestation I examined this patient and my medical decision-making was reviewed with the Resident Physician. I agree with the documented findings, disposition and treatment plan as described except to the extent set forth below. This is an addendum to report dictated by Sulma Otto CNP. Please refer to Karyna sebastian for full detail. Patient is a 61-year-old woman with past medical history mentioned below who is well-known to our service has had recurrent nonhealing diabetic foot ulcer that has failed treatment with IV antibiotics including Rocephin. Treatment was done for solids therapy with no improvement. Previously cultures grew Escherichia coli and Proteus mirabilis. Patients foot continued to do worse and she tells me for about a week prior to admission she was having low-grade fever at the group home. Her foot was looking worse and she is having more pain so she came in to the hospital for evaluation. Since arrival patient was evaluated and I believe she might be taken for surgery tomorrow for possible amputation. Because of the sepsis criteria when the patient came and she was started on broad-spectrum antibiotics including meropenem and vancomycin. At this point patient appears stable laying in bed appears to be slightly down with some signs of depression. Continue the vancomycin, DC the meropenem and start Zosyn. Await cultures from the blood to finalize. Well continue to follow.
--- NOTE | 2016-12-12 15:09 | Internal Med Progress Note ---
Date of Encounter: 12/12/16 Time of Encounter: 11:00 - Assessment and plan (1) Sepsis Current Visit: Yes Status: Acute Assessment and plan: Pt did meet sepsis criteria with elevated WBC, Tachycardia, Source of inf Rt foot osteomyelitis and RANCHO Reviewed foot Cx results from 12/04/16 growing PNC resistant E. Coli and Proteus mirabilis pt did have h/o MRSA in the past changed the abx to Meropenem and Vancomycin d/c clindamycin consulted ID will f/u on current wound cx and blood cx Qualifiers: Sepsis type: sepsis due to unspecified organism Qualified Code(s): A41.9 - Sepsis, unspecified organism (2) Acute osteomyelitis of right calcaneus Current Visit: No Status: Acute Assessment and plan: Reviewed X ray from last night..showing osteomyelitis and gas formation Spoke to machinist first class recommend amputation if pt agrees Pt did agree for Rt leg BKA amputation So consulted vascular surgery Dr. Kat who is planning on doing amputation in Held Xarelto for now .. (3) RANCHO (acute kidney injury) Current Visit: Yes Status: Acute Assessment and plan: Due to sepsis improving avoid nephro toxic meds renally doses all the abx (4) Peripheral arterial disease Current Visit: Yes Status: Acute Assessment and plan: s/p Angioplasty on 11/07/[address] Kat Had Proximal Rt posterior tibial artery 95 % stenosis treated with a balloon resume ASA and Xarelto after surgery (5) Diabetes mellitus Current Visit: No Status: Chronic Assessment and plan: on ISS + Levemir HbA1C 8.5 Qualifiers: Diabetes mellitus type: type 2 Diabetes mellitus complication status: with skin complications Diabetes mellitus complication detail: with foot ulcer Diabetes mellitus longterm insulin use: with relationship executive use Qualified Code(s) : E11.621 - Type 2 diabetes mellitus with foot ulcer; L97.509 - Non-pressure chronic ulcer of other part of unspecified foot with unspecified severity; Z79.4 - rn family (current) use of insulin (6) Atrial fibrillation Current Visit: No Status: Chronic Assessment and plan: Rate controlled with home med Metoprolol Held Xarelto - for surgery Qualifiers: Atrial fibrillation type: chronic Qualified Code(s): I48.2 - Chronic atrial fibrillation (7) H/O deep venous thrombosis Current Visit: No Status: Resolved Assessment and plan: was on Xarelto (8) Tobacco abuse Current Visit: No Status: Chronic Assessment and plan: Counseled to quit smoking placed her on nicotine patch (9) HTN (hypertension) Current Visit: Yes Status: Acute Assessment and plan: stable with current meds Qualifiers: Hypertension type: essential hypertension Qualified Code(s): I10 - Essential (primary) hypertension - Subjective Interval history: Ms. Rascon is a 61 year old female with a PMH of a-fib, on xarelto, DM, HTN and a chronic non-healing diabetic ulcer. Who presented to OSH from an ECF with a low-grade fever, leukocytosis. She was transferred to [facility] on 12-11-16 for further workup and treatment. Pt got admitted here for acute Rt foot osteomyelitis and worsening ulcer over Rt foot calcneal region. Pt was started on broad spectrum IV Abx. Pt stated her pain tolerable with medication. Denied any CP / SOB - Constitutional Vitals: Temp Pulse Resp BP Pulse Ox 98.0 F 124 16 114/73 95 12/12/16 11:11 12/12/16 12:00 12/12/16 11:11 12/12/16 11:11 12/12/16 11:11 General appearance: Present: A&O X 3, no acute distress, answers questions appropriately - Head Head exam: Present: atraumatic, normal inspection - Neck Neck exam general surgery: Present: supple - Respiratory Respiratory exam: Present: decreased breath sounds, wheezes. Absent: rales, respiratory distress, rhonchi, tachypnea - Cardiovascular Cardiovascular exam: Present: irregular rhythm, +S1, +S2 - GI/Abdominal GI/Abdominal exam: Present: normal bowel sounds, soft. Absent: rebound, rigid, tenderness - Extremities Exam Additional comments: 6 cm size large black discolored blister noticed over Rt mid foot plantar region , also noticed 6 x7 cm size open, beefy appearance ulcer over Rt foot calcaneal region. a small 2 -3 cm ulcer over Left leg noticed - Psychiatric Psychiatric exam: Present: normal affect, normal mood Internal Medicine: Result - Labs CBC & Chem 7: 12/12/16 05:23 12/12/16 05:23 Labs: Short CBC 12/11/16 12/12/16 Range/Units 19:46 05:23 WBC 21.1 H 12.5 H (4.3-11.1) K/mcL Hgb 11.5 11.4 L (11.5-15.4) g/dL Hct 37.3 37.4 (35.3-44.9) % Plt Count 275 242 (140-400) K/mcL Neutrophils # 10.3 H (1.6-8.9) K/mcL BMP 12/11/16 12/12/16 19:46 05:23 Sodium 133 L 138 Potassium 4.3 4.3 Chloride 103 107 Carbon Dioxide 24 27 BUN 27 H 25 H Creatinine 1.33 H 1.21 H Glucose 253 H 174 H Calcium 8.2 L 8.4 L Liver Function 12/11/16 12/12/16 Range/Units 19:46 05:23 Total Bilirubin 0.6 0.3 (0.2-1.2) mg/dL AST 40 H 33 (5-34) Units/L ALT 29 27 (0-55) Units/L Alkaline Phosphatase 125 118 (38-126) Units/L Albumin 2.1 L 2.0 L (3.5-5.0) g/dL - ABG Interpretation ABG results: ABG ABG pH 7.27 pH Units (7.32-7.45) L 12/11/16 22:42 ABG pCO2 53 mmHg (35-45) H 12/11/16 22:42 ABG pO2 98 mmHg (85-104) 12/11/16 22:42 ABG O2 Saturation 97 % (95-98) 12/11/16 22:42 - Impressions Impressions Head CT 12/11/16 21:17 IMPRESSION: No acute intracranial abnormality. D/ / José Shanks MD / José Shanks MD Interpreting Provider: José Shanks MD Consult Discharge Plan - Plan Referrals: NONE,PCP [Primary Care Provider] - Marcella Singer STRATEGY MANAGER [Advanced Practice Nurse] - 12/20/16 11:15 am
[2016-12-12] MEDS: Metoprolol 100 MG TABLET PO SCH ×2 (15:50→22:28)
[2016-12-12] MEDS: Gabapentin 400 MG CAPSULE PO SCH ×2 (15:50→22:28)
[2016-12-12] MEDS ORDERED: Meropenem 500 MG in 0.9 % Sodium Chloride Mini Bag 100 ML IVPB SCH (16:00)
[2016-12-12] MEDS ORDERED: Vancomycin 1,250 MG in D5% in Water 250 ML IVPB SCH (16:00)
[2016-12-12] MEDS ORDERED: *HR* Rivaroxaban 15 MG TABLET PO SCH (17:00)
--- NOTE | 2016-12-12 17:36 | Vascular/Endovasc Consult Note ---
Date of Encounter: 12/12/16 Time of Encounter: 17:00 Assessment and Plan (1) Atherosclerosis of [place] artery of both lower extremities with bilateral ulceration Status: Chronic The patient has progressive ulceration with ostemyelitis in the right foot despite prior angioplasty. A right below knee amputation has been recommended. The risks, benefits and alternatives were discussed and all questions were answered. She expressed understanding and wishes to proceed. Qualifiers: Lower extremity ulceration location: other part of foot Qualified Code(s): I70.235 - Atherosclerosis of [place] arteries of right leg with ulceration of other part of foot; I70.245 - Atherosclerosis of [place] arteries of left leg with ulceration of other part of foot (2) Chronic anemia Status: Acute (3) Atrial fibrillation Status: Acute Qualifiers: Atrial fibrillation type: chronic Qualified Code(s): I48.2 - Chronic atrial fibrillation (4) HTN (hypertension) Status: Acute The patient was counseled regarding atherosclerotic risk factor reduction. Qualifiers: Hypertension type: essential hypertension Qualified Code(s): I10 - Essential (primary) hypertension (5) Obesity (BMI 30-39.9) Status: Acute (6) Osteomyelitis Status: Acute Qualifiers: Osteomyelitis type: chronic multifocal Osteomyelitis location: foot Laterality: right Qualified Code(s): M86.371 - Chronic multifocal osteomyelitis, right ankle and foot - History of Present Illness Consult date: 12/12/16 Consult reason: Peripheral vascular disease Chief complaint: Nonhealing ulcer History of present illness: Ms. Rascon is a 61 year old female with a history of diabetes, hypertension, hyperlipiemia and atrial fibrillation. She also has a history of peripheral vascular disease with ulceration. She previously was seen in [facility] and advised that an amputation was recommended due to the extent of her disease. She declined amputation and then came to [facility]. She underwent an angiogram with angioplasty. Her wound was healing, but acutely worsened recently. Vascular surgery was consulted for further evaluation. At the time of examination, the patient is alert and comfortable. She denies fevers or chills. She denies chest pain or shortness of breath. Past Med Surg Social Fam HX - Past Medical History Medical history: arthritis, atrial fibrillation, coronary artery disease, DVT, diabetes, hyperlipidemia, hypertension, pulmonary embolus, renal disease, other (Non-healing right foot wounds, right foot great toe gangrene, left foot infection) Psychiatric history: anxiety, depression - Past Surgical History Surgical History: other (Left foot TMA secondary to infection) - Social History Smoking Status: Current every day smoker Packs per day: 1 Smokeless Tobacco Status: No Alcohol use: none Drug use: none - Family History Mother Family Member Ethnicity: Non- Twin of Family Member: Yes, Identical Living Status: Hx Family Cardiac Disorders: Yes Hx Family Respiratory Disorders: No Hx Family Cancer: Yes (aunt) Hx Family GI Disorders: Yes Hx Family Endocrine Disorder: Yes Hx Family Neurologic Disorders: Yes Hx Family HEENT Disorders: No Hx Family Autoimmune Disorders: No Father Living Status: Hx Family Cardiac Disorders: Yes Hx Family Endocrine Disorder: Yes (diabetes) Brother Hx Family Endocrine Disorder: Yes (diabetes) Medications and Allergies Sertraline [Zoloft] 100 mg PO DAILY 07/18/15 [History] Mirtazapine [Remeron] 30 mg PO HS 06/17/16 [History] Rivaroxaban [Xarelto] 15 mg PO 1700 tablet 11/11/16 [Rx] Atorvastatin [Lipitor] 10 mg PO DAILY 12/12/16 [History] Cholecalciferol (D-3) [Vitamin D] 1,000 unit PO DAILY 12/12/16 [History] Clopidogrel [Plavix] 75 mg PO DAILY 12/12/16 [History] Furosemide [Lasix] 40 mg PO ,12/12/16 [History] Gabapentin [Neurontin] 600 mg PO QID 12/12/16 [History] Insulin Glargine,Hum.rec.anlog [Basaglar Kwikpen U-100] 15 unit SQ BID 12/12/16 [History] Insulin LISPRO [HumaLOG] 2 - 8 units SQ AD PRN 12/12/16 [History] Insulin LISPRO [HumaLOG] 8 units SQ TIDWM 12/12/16 [History] Loratadine [Allergy Relief] 10 mg PO DAILY 12/12/16 [History] Metoprolol [Lopressor] 100 mg PO BID 12/12/16 [History] Multivitamin,Stress Formula [Stress Formula] 1 tab PO DAILY 12/12/16 [History] [place]-3/Dha/Epa/Fish Oil [Fish Oil 1,000 mg Softgel] 1 each PO DAILY 12/12/16 [ History] Potassium Chloride [K-Tab ER] 20 meq PO BID 12/12/16 [History] amLODIPine [Norvasc] 5 mg PO DAILY 12/12/16 [History] Diltiazem CD (24hr) [Cardizem CD] 120 mg PO DAILY #30 cap.er.24h 12/16/16 [Rx] OxyCODONE/APAP 5/325 [Percocet 5/325 MG] 1 each PO Q6H PRN #15 tab 12/16/16 [Rx] Allergies codeine Allergy (Verified 12/12/16 08:39) See Comments Unknown reaction. Paroxetine [From Paxil] Allergy (Verified 12/12/16 08:39) See Comments Unknown reaction. Penicillins Allergy (Verified 12/12/16 08:39) See Comments Unknown reaction. All Systems Review: A 10-system review of systems was performed and is negative for pertinent findings except as documented above in the HPI. Exam Vital Signs, Last 4 Hours Temp Pulse Resp BP Pulse Ox 12/12/16 16:48 98.9 F 106 19 117/80 94 12/12/16 16:00 130 General: Present: Conversant, No Apparent Distress HEENT: Present: Atraumatic, Normocephaly, Pupils equal Neck: Absent: JVD, Lymphadenopathy, Left Carotid bruit, Right Carotid bruit, Tracheal deviation Cardiac: Present: Irregular Rhythm Lungs: Present: Normal Breath Sounds, No Wheeze, Rales, Rhonchi Neuro: Present: Alert and responsive, No focal deficits noted, Cranial nerves grossly intact Abdomen: Present: Soft, Non-tender. Absent: Masses Vascular: Present: Normal capillary refill, Pulse, absent (right dorsalis pedis and posterior tibial), Edema (trace edema). Absent: Cyanosis Skin: Present: Wound/ulcer(s) (Nonhealing right foot wounds with erythema, no fluctuance, minimal purulent drainage, odor present) Musculoskeletal: Present: No Chest Wall Tenderness Consult Discharge Plan - Plan Referrals: Carlitos Kat MD [Partnered Physician] - 01/20/17 11:00 am NONE,PCP [Primary Care Provider] - Marcella Singer CNP [Advanced Practice Nurse] - (PATIENT IS GOING TO [facility], NO PCP APPOINTMENT NEEDED) Prescriptions: Diltiazem CD (24hr) [Cardizem CD] 120 mg PO DAILY #30 cap.er.24h OxyCODONE/APAP 5/325 [Percocet 5/325 MG] 1 each PO Q6H PRN #15 tab PRN Reason: Moderate Pain
--- NOTE | 2016-12-12 20:04 | Anesthesia Evaluation PreOp ---
Date of Encounter: 12/13/16 Time of Encounter: 06:56 - Past History Planned Operation: Right BKA Cardiac History: HTN, Hyperlipidemia, Arrhythmia (A-Fib) Pulmonary History: Smoker (30+ years), Other (H/O DVT with PE) POLARITY TESTER History: CVA (S/P CVA x 4, no residual deficits) Other Medical History: Diabetes Type II Anesthesia History: No Prior Anesthetic Complications, Past Anesthesia Alcohol Use: none Drug use: none Medications and Allergies Sertraline [Zoloft] 100 mg PO DAILY 07/18/15 [History] Mirtazapine [Remeron] 30 mg PO HS 06/17/16 [History] Rivaroxaban [Xarelto] 15 mg PO 1700 tablet 11/11/16 [Rx] Atorvastatin [Lipitor] 10 mg PO DAILY 12/12/16 [History] Cholecalciferol (D-3) [Vitamin D] 1,000 unit PO DAILY 12/12/16 [History] Clopidogrel [Plavix] 75 mg PO DAILY 12/12/16 [History] Furosemide [Lasix] 40 mg PO ,12/12/16 [History] Gabapentin [Neurontin] 600 mg PO QID 12/12/16 [History] Insulin Glargine,Hum.rec.anlog [Basaglar Kwikpen U-100] 15 unit SQ BID 12/12/16 [History] Insulin LISPRO [HumaLOG] 2 - 8 units SQ AD PRN 12/12/16 [History] Insulin LISPRO [HumaLOG] 8 units SQ TIDWM 12/12/16 [History] Loratadine [Allergy Relief] 10 mg PO DAILY 12/12/16 [History] Metoprolol [Lopressor] 100 mg PO BID 12/12/16 [History] Multivitamin,Stress Formula [Stress Formula] 1 tab PO DAILY 12/12/16 [History] [place]-3/Dha/Epa/Fish Oil [Fish Oil 1,000 mg Softgel] 1 each PO DAILY 12/12/16 [ History] Potassium Chloride [K-Tab ER] 20 meq PO BID 12/12/16 [History] amLODIPine [Norvasc] 5 mg PO DAILY 12/12/16 [History] Allergies codeine Allergy (Verified 12/12/16 08:39) See Comments Unknown reaction. Paroxetine [From Paxil] Allergy (Verified 12/12/16 08:39) See Comments Unknown reaction. Penicillins Allergy (Verified 12/12/16 08:39) See Comments Unknown reaction. - Meds/Allergy Pre-op Review Medications Reviewed: Yes Allergies Reviewed: Yes Beta Blockers on Current Med List: Yes If Beta Blockers taken, Date/Time (Last Dose taken): 12/12/2016 at 2228 Anesthesia Results - Labs 12/13/16 05:13 12/13/16 05:13 Laboratory Tests 07/26/16 11/06/16 01:35 12:02 PT 12.8 H INR 1.2 APTT 40.1 H - Imaging EKG: report reviewed (07/26/2016 A-Fib with RVR, marked RAD) Additional studies: 10/26/2015 Echo LVEF 50-55% LV function varies with cycle length of A-Fib, but appears low normal overall indeterminate diastolic function no evidence of pulmonary HTN no obvious significant valvular dysfunction 09/07/2014 Echo Impressions: LVEF 65%;No SMWMAs%. Normal left ventricular size and systolic function. There is no evidence of left ventricular thrombus. Definity was not given. There is evidence of mild diastolic dysfunction of the left ventricle. Mildly enlarged left atrial size. Normal right ventricular size and function. Normal right atrial size. No significant valvular dysfunction. No pulmonary hypertension. Anesthesia Exam Vital Signs/O2 Sat/Glucose, Most Recent Temp Pulse Resp BP Pulse Ox 98.0 F 125 19 114/87 91 12/13/16 04:06 12/13/16 04:30 12/13/16 04:06 12/13/16 04:06 12/13/16 04:06 Blood Glucose* 225 Height: 5'6''/1.68 m Weight: 231 lbs/104.78 kg NPO (# of Hours): 8 Pain Scale: 0 Pain Scale Used: Numeric (1 - 10) - HEENT Pupil (Motor): EOMI Mallampati: II Teeth: Normal Denture Type: Upper: Complete Oral Opening: Greater than 3 - POLARITY TESTER LOC: Oriented POLARITY TESTER Motor: Normal RUE, Normal LUE, Normal RLE, Normal LLE, Normal Face POLARITY TESTER Sensory: Normal: Face, Deficit: RUE, LUE, RLE, LLE - Cardiac Rhythm: Irregular Murmur: None - Pulmonary Breath Sounds: bilateral Clear Respiratory Effort: Symmetrical Anesthesia Assess/Plan ASA Score: 3 Modified Emily Scale for Level of Consciousness: Cooperative, oriented, and tranquil Anesthetic Plan: General Monitoring Plan: Standard Monitors Recovery Plan: PACU
[2016-12-12] MEDS ORDERED: Mirtazapine 15 MG TABLET PO SCH (21:00)
[2016-12-12] MEDS ORDERED: NON-FORMULARY MEDICATION 1 EACH EACH (Insulin Glargine,Hum.Rec.Anlog [Basaglar Kwikpen U-1 SQ SCH (21:00)
[2016-12-12] MEDS: Gabapentin 300 MG CAPSULE PO SCH (22:28)
[2016-12-12] MEDS: Insulin DETEMIR 100 UNIT/ML X5UNITS SQ SCH (22:28)
[2016-12-13] MEDS: Vancomycin 1,000 MG in D5% in Water 250 ML IVPB SCH (00:02)
[2016-12-13] MEDS: Piperacillin/Tazobactam 3.375 GM in D5% in Water (Mini-Bag+) 100 ML IVPB SCH ×3 (00:03→16:31)
[2016-12-13] MEDS ORDERED: D5% in Water 250 ML ONE (00:11)
[2016-12-13 06:24] LABS: Basophils % 0.3 %; Eosinophils # 0.3 K/mcL (0.0-0.6); Hematocrit 37.8 % (35.3-44.9); Hemoglobin 11.6 g/dL (11.5-15.4); Lymphocytes # 1.1 K/mcL (0.6-4.6); Lymphocytes % 9.1 %; Mean Corpuscular HGB Conc 30.7 g/dL (31.6-35.5); Mean Corpuscular Volume 91.1 fL (83.0-100.0); Mean Platelet Volume 11.2 fL (9.4-12.4); Monocytes # 0.7 K/mcL (0.0-1.3); Monocytes % 5.7 %; Neutrophils # 10.2 K/mcL (1.6-8.9); Platelet Count 278 K/mcL (140-400); Red Blood Count 4.15 M/mcL (3.82-4.97); Red Cell Distribution Width 15.1 % (11.5-14.5); Segmented Neutrophils % 81.9 %
[2016-12-13 06:40] LABS: BUN/Creatinine Ratio 20 (6-26); Blood Urea Nitrogen 22 mg/dL (7-20); Calcium 8.8 mg/dL (8.6-10.8); Carbon Dioxide 22 mEq/L (19-29); Chloride 108 mEq/L (98-109); Glucose 165 mg/dL (70-99); Osmolality,Calculated 291 (280-300); Potassium 4.6 mEq/L (3.5-4.5); Sodium 137 mEq/L (136-145); eGFR For African Americans > 60 (> 60); eGFR For Non-African Americans 52 (> 60)
[2016-12-13] MEDS: Insulin LISPRO 300 UNITS/3 ML VIAL SQ SCH ×4 (07:33→20:39)
[2016-12-13] MEDS: Metoprolol 100 MG TABLET PO SCH ×2 (07:33→22:05)
[2016-12-13] MEDS: Gabapentin 400 MG CAPSULE PO SCH (07:34)
[2016-12-13] MEDS: Gabapentin 300 MG CAPSULE PO SCH ×3 (07:34→22:05)
[2016-12-13] MEDS: Insulin DETEMIR 100 UNIT/ML X5UNITS SQ SCH ×2 (08:55→20:51)
[2016-12-13] MEDS ORDERED: amLODIPine 5 MG TABLET PO SCH (09:00)
[2016-12-13] MEDS ORDERED: Cholecalciferol (D-3) 1,000 UNIT TABLET PO SCH (09:00)
[2016-12-13] MEDS ORDERED: Loratadine 10 MG TABLET PO SCH (09:00)
[2016-12-13] MEDS ORDERED: *HR* FentaNYL (PF) 100 MCG/2 ML VIAL ONE (10:52)
[2016-12-13] MEDS ORDERED: *HR* Midazolam HCl 2 MG/2 ML VIAL ONE (10:52)
[2016-12-13] MEDS ORDERED: *HR* Succinylcholine 200 MG/10 ML VIAL IVP ONE (10:53)
[2016-12-13] MEDS ORDERED: *HR* Propofol 200 MG/20 ML VIAL IVP ONE (10:53)
[2016-12-13] MEDS ORDERED: Lidocaine -MPF 2% 2 ML VIAL ONE (10:53)
--- NOTE | 2016-12-13 10:53 | Infectious Disease Progress No ---
Date of Encounter: 12/13/16 Time of Encounter: 10:51 - Assessment and Plan (1) Sepsis Current Visit: Yes Status: Acute The patient had three SIRS criteria plus RANCHO on admission. Likely secondary to right foot osteomyelitis. Improved. The patient has been afebrile. WBC trending stable. RANCHO resolved. Blood cultures drawn in the ER at [facility] are no growth to date x 2 sets. Additional blood cultures upon arrival here 12/11/16 are also no growth to date 2 sets. Qualifiers: Sepsis type: sepsis due to unspecified organism Qualified Code(s): A41.9 - Sepsis, unspecified organism (2) Acute osteomyelitis of right calcaneus Current Visit: No Status: Acute Location: Right calcaneus. Causative organism: P. mirabilis and E. coli per previous wound culture and bone biopsy. Concern for anaerobes as well given the soft tissue gas on the x- ray. Secondary to non-healing diabetic foot ulcer. Right foot XR completed in the ED showed large soft tissue ulceration to the plantar aspect of the hindfoot with erosive changes and changes consistent with osteomyelitis of the calcaneus. Soft tissue gas noted on the x-ray concerning for gas-forming organism as well. Vascular surgery consulted. The patient is scheduled for right BKA later today. Will defer additional workup since the patient is scheduled for BKA later today Continue Vancomycin IV. Pharmacy to dose. Goal trough ~15. Continue Zosyn 3.375 grams IV Q8H. The patient has a PCN allergy listed, but it appears she has received two doses of Zosyn so far and has not had any reaction. Duration of treatment depends on the clinical picture. If blood cultures remain negative, will likely discontinue antibiotics after the patient has her surgery. Monitor renal function and for drug toxicity and dose-adjust antibiotics. (3) RANCHO (acute kidney injury) Current Visit: Yes Status: Acute Likely secondary to sepsis. Resolved. Continue to trend. Avoid nephrotoxins and dose-adjust antibiotics. (4) Non-healing surgical wound Current Visit: Yes Status: Acute Likely secondary to PAD. Continue wound care per the podiatry team. Qualifiers: Encounter type: initial encounter Qualified Code(s): T81.89XA - Other complications of procedures, not elsewhere classified, initial encounter (5) Acute diarrhea Current Visit: No Status: Acute The patient states she has not had any diarrhea today. Low index of suspicion for C. diff. Likely secondary to recent antibiotic use. If patient has increase in stool frequency to 4 or more stools per day, consider testing for C. diff. (6) Atherosclerosis of [place] artery of both lower extremities with bilateral ulceration Current Visit: No Status: Chronic Qualifiers: Lower extremity ulceration location: other part of foot Qualified Code(s): I70.235 - Atherosclerosis of [place] arteries of right leg with ulceration of other part of foot; I70.245 - Atherosclerosis of [place] arteries of left leg with ulceration of other part of foot (7) Tobacco abuse Current Visit: No Status: Chronic (8) HTN (hypertension) Current Visit: Yes Status: Acute Qualifiers: Hypertension type: essential hypertension Qualified Code(s): I10 - Essential (primary) hypertension (9) Diabetes mellitus Current Visit: No Status: Chronic Recommend aggressive glucose monitoring and control to promote wound healing and prevent re-infection. 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 No acute events noted overnight. Patient states that overall she feels about the same. She denies any fevers or chills or rigors overnight. She denies any headache or neck pain. She denies any chest pain, shortness of breath, or cough. She denies any nausea, vomiting, diarrhea, or constipation. She is currently nothing by mouth for surgery later today. She denies any urinary complaints and has a Lama catheter that remains patent. She denies any pain in her extremities at this time. She denies any oral thrush or skin lesions. Infect Dis PN-Objective Data - Labs CBC & Chem 7: 12/13/16 05:13 12/13/16 05:13 Labs: Laboratory Results - last 24 hr 12/12/16 12/12/16 12/12/16 11:16 17:11 17:54 WBC RBC Hgb Hct MCV MCH MCHC RDW Plt Count MPV Immature Gran % Seg Neutrophils % Lymphocytes % Monocytes % Eosinophils % Basophils % Neutrophils # Lymphocytes # Monocytes # Eosinophils # Basophils # Sodium Potassium Chloride Carbon Dioxide BUN Creatinine Est GFR ( Amer) Est GFR (Non-Af Amer) BUN/Creatinine Ratio Glucose POC Glucose 176 H 178 H Calculated Osmolality Calcium Blood Type O POSITIVE Antibody Screen NEGATIVE 12/12/16 12/12/16 12/13/16 21:14 22:40 05:13 WBC 12.5 H RBC 4.15 Hgb 11.6 Hct 37.8 MCV 91.1 MCH 28.0 MCHC 30.7 L RDW 15.1 H Plt Count 278 MPV 11.2 Immature Gran % 1.0 Seg Neutrophils % 81.9 Lymphocytes % 9.1 Monocytes % 5.7 Eosinophils % 2.0 Basophils % 0.3 Neutrophils # 10.2 H Lymphocytes # 1.1 Monocytes # 0.7 Eosinophils # 0.3 Basophils # 0.0 Sodium Potassium Chloride Carbon Dioxide BUN Creatinine Est GFR ( Amer) Est GFR (Non-Af Amer) BUN/Creatinine Ratio Glucose POC Glucose 248 H 225 H Calculated Osmolality Calcium Blood Type Antibody Screen 12/13/16 05:13 WBC RBC Hgb Hct MCV MCH MCHC RDW Plt Count MPV Immature Gran % Seg Neutrophils % Lymphocytes % Monocytes % Eosinophils % Basophils % Neutrophils # Lymphocytes # Monocytes # Eosinophils # Basophils # Sodium 137 Potassium 4.6 H Chloride 108 Carbon Dioxide 22 BUN 22 H Creatinine 1.08 Est GFR ( Amer) > 60 Est GFR (Non-Af Amer) 52 L BUN/Creatinine Ratio 20 Glucose 165 H POC Glucose Calculated Osmolality 291 Calcium 8.8 Blood Type Antibody Screen Cultures: Cultures 12/11/16 19:40 Blood Culture - Preliminary Peripheral Venipuncture No growth. 12/11/16 19:46 Blood Culture - Preliminary Peripheral Venipuncture No growth. 12/12/16 05:50 Wound Culture - Preliminary Right Foot Gram Negative Daniel Gram Negative Daniel#2 Exam - Constitutional Vitals: Temp Pulse Resp BP Pulse Ox 98.2 F 99 20 119/86 93 12/13/16 07:30 12/13/16 07:30 12/13/16 07:30 12/13/16 07:30 12/13/16 07:30 General appearance: cooperative, no acute distress, obese - Head Head exam: Present: atraumatic, normal inspection, normocephalic - Eye Eye exam: Present: EOMI, normal appearance, PERRL Pupils: Present: normal accommodation - ENT ENT exam: Present: mucous membranes dry - Neck Neck exam: Present: normal inspection - Respiratory Respiratory exam: Present: CTAB. Absent: rales, respiratory distress, rhonchi, wheezes - Cardiovascular Cardiovascular exam: Present: irregular rhythm, tachycardia - GI/Abdominal GI/Abdominal exam: Present: distended (Obese), normal bowel sounds, soft. Absent: tenderness - Extremities Exam Extremities exam: Present: pedal edema (2+ right lower extremity). Absent: joint swelling, tenderness Additional comments: Right foot dressing clean, dry, and intact. Foul odor noted coming from the foot. Dressing to the left medial calf is clean, dry, and intact. - Neurological Exam Neurological exam: Present: alert, oriented X3, no focal deficits - Psychiatric Psychiatric exam: Present: normal affect, normal mood - Skin Skin exam: Present: dry, intact, normal color, warm Consult Discharge Plan - Plan Referrals: Carlitos Kat MD [Partnered Physician] - 01/20/17 11:00 am NONE,PCP [Primary Care Provider] - Marcella Singer CNP [Advanced Practice Nurse] - 12/20/16 11:15 am - Attending Attestation I examined this patient and my medical decision-making was reviewed with the Resident Physician. I agree with the documented findings, disposition and treatment plan as described except to the extent set forth below.
[2016-12-13] MEDS ORDERED: Vancomycin 1 EACH in EMPTY BAG 1 EACH IVPB SCH (12:00)
[2016-12-13] MEDS ORDERED: Ondansetron 4 MG/2 ML VIAL ONE (12:47)
[2016-12-13] MEDS ORDERED: *HR* Promethazine 25 MG/ML VIAL IVP PRN ×2 (13:06→15:50)
[2016-12-13] MEDS ORDERED: *HR* HYDROmorphone (PF) 1 MG/ML SYRINGE IVP PRN (13:06)
[2016-12-13] MEDS ORDERED: *HR* Labetalol 20 MG/4 ML SYRINGE IVP PRN (13:06)
[2016-12-13] MEDS ORDERED: *HR* Meperidine 25 MG/ML SYRINGE IVP PRN (13:06)
[2016-12-13] MEDS ORDERED: *HR* HYDROmorphone 2 MG/ML SYRINGE ONE (13:18)
[2016-12-13] MEDS ORDERED: Esmolol 100 MG/10 ML VIAL IVP ONE (13:24)
[2016-12-13] MEDS ORDERED: *HR* Metoprolol 5 MG/5 ML VIAL IVP ONE (13:36)
--- NOTE | 2016-12-13 14:23 | Operative Note ---
Date of procedure: 12/13/16 Pre-op diagnosis: Peripheral vascular disease with ulceration, osteomyelitis Post-op diagnosis: same Procedure: Right below knee amputation Complications: None Anesthesia: KOMALA Surgeon: Carlitos Kat Estimated blood loss (cc): 300 Specimen: Right lower extremity Condition: stable Disposition: PACU Procedure in Detail: Indications: The patient is a 61 year old female with hypertension and diabetes who developed progressive ulceration and osteomyelitis in the right foot. She was found to have nonreconstructable distal tibial disease. She did previously undergo proximal tibial angioplasty and was healing. She then developed acutely worsening osteomyelitis. She was admitted and started intravenous antibiotics. Procedure: The patient was identified in the holding area. The risks, benefits and alternatives were discussed and all questions were answered. The patient was taken to the operating room and placed in the supine position on the operating room table. After the induction of general endotracheal anesthesia, the patient was cleaned and draped in the normal sterile fashion. The skin was demarcated with a posterior flap along the right leg. The skin was incised with a #15 blade. Using a process of blunt, sharp and electrocautery dissection, the muscle fascia was traversed. The periosteum was elevated off of the tibia. Using a powered saw, a notch was made in the anterior surface of the tibia and the tibia was then transected. The periosteum was elevated off the fibula and the fibula was divided with a bone cutter. The soft tissues were divided along the incision with an amputation knife. The artery and vein were clamped and then suture ligated with 0 silk suture. The nerve was grasped and transected as high as possible. The wound was irrigated. Meticulous hemostasis was obtained through out the wound with electrocautery. The fascial layers were reapproximated with Vicryl surture. Skin was reapproximated with shivani. A sterile dressing was applied. The patient was extubated and taken to the recovery room in stable condition.
[2016-12-13] MEDS ORDERED: Naloxone 0.4 MG/ML INJ ONE (14:32)
[2016-12-13] MEDS ORDERED: Albuterol 2.5 MG/3 ML NEBULIZER ONE (15:03)
[2016-12-13] MEDS ORDERED: Ketamine *HR* 500 MG/10 ML MDV ONE (15:06)
[2016-12-13] MEDS: Albuterol 2.5 MG/3 ML NEBULIZER IH ONE ×2 (15:07→17:57)
--- NOTE | 2016-12-13 15:48 | Anesthesia Evaluation Post Op ---
Date of Encounter: 12/13/16 Time of Encounter: 15:47 - Vital Signs Vital Signs: Last Vital Signs Temp 98.9 F 12/13/16 14:54 Pulse 96 12/13/16 15:14 Resp 16 12/13/16 15:14 BP 114/84 12/13/16 15:14 Pulse Ox 94 12/13/16 15:14 - Lungs Lungs: Clear Ascult./Percussion - Airway Airway: Non-obstructed - Cardiovascular Regular Rate - Mental Status Mental Status: Alert & Oriented, Answers Appropriately - Pain Pain Scale: 5 - Nausea Vomiting Nausea Vomiting: Not Present - Hydration Hydration: NPO - Discharge PostOp Status: Transfer Patient to floor (Needs CPAP)
[2016-12-13] MEDS ORDERED: Acetaminophen 325 MG TABLET PO PRN (15:50)
[2016-12-13] MEDS ORDERED: D5% in Water 1,000 ML IVC PRN (15:50)
[2016-12-13] MEDS ORDERED: *HR* OxyCODONE/APAP 10/325 TABLET PO PRN (15:50)
[2016-12-13] MEDS ORDERED: Naloxone 0.4 MG/ML INJ IVP PRN (15:50)
[2016-12-13] MEDS ORDERED: *HR* Dextrose 50 % in Water (Syg) 50 ML SYRINGE IVP PRN (15:50)
[2016-12-13] MEDS ORDERED: Dextrose Gel 15 GM PO PRN ×2 (15:50)
--- NOTE | 2016-12-13 16:01 | Internal Med Progress Note ---
Date of Encounter: 12/13/16 Time of Encounter: 15:59 - Assessment and plan (1) Sepsis Current Visit: Yes Status: Acute Assessment and plan: Her wound cx from 12/12/16 - growing G-ve rods Reviewed foot Cx results from 12/04/16 growing PNC resistant E. Coli and Proteus mirabilis pt did have h/o MRSA in the past Cont abx Zosyn and Vancomycin ID is on board since pt had BKA, may not need terminal worker IV ABx Qualifiers: Sepsis type: sepsis due to unspecified organism Qualified Code(s): A41.9 - Sepsis, unspecified organism (2) Acute osteomyelitis of right calcaneus Current Visit: No Status: Acute Assessment and plan: s/p Rt leg BKA amputation by vascular surgery Dr. Kat Cont holding Xarelto for now .. (3) Atrial fibrillation Current Visit: No Status: Acute Assessment and plan: Pt is currently in A fib with RVR cont Cardizem gtt Resumed home PO med Metoprolol too Held Xarelto - for surgery Qualifiers: Atrial fibrillation type: chronic Qualified Code(s): I48.2 - Chronic atrial fibrillation (4) RANCHO (acute kidney injury) Current Visit: Yes Status: Acute Assessment and plan: Due to sepsis improving avoid nephro toxic meds renally dosed all the abx (5) Peripheral arterial disease Current Visit: Yes Status: Acute Assessment and plan: s/p Angioplasty on 11/07/[address] Kat Had Proximal Rt posterior tibial artery 95 % stenosis treated with a balloon resume ASA and Xarelto once pt gets stabilized (6) Diabetes mellitus Current Visit: No Status: Chronic Assessment and plan: on ISS + Levemir HbA1C 8.5 Qualifiers: Diabetes mellitus type: type 2 Diabetes mellitus complication status: with skin complications Diabetes mellitus complication detail: with foot ulcer Diabetes mellitus jail insulin use: with terminal worker use Qualified Code(s) : E11.621 - Type 2 diabetes mellitus with foot ulcer; L97.509 - Non-pressure chronic ulcer of other part of unspecified foot with unspecified severity; Z79.4 - correction (current) use of insulin (7) H/O deep venous thrombosis Current Visit: No Status: Resolved Assessment and plan: SCD (8) Tobacco abuse Current Visit: No Status: Chronic Assessment and plan: Counseled to quit smoking placed her on nicotine patch (9) HTN (hypertension) Current Visit: Yes Status: Acute Assessment and plan: stable with current meds Qualifiers: Hypertension type: essential hypertension Qualified Code(s): I10 - Essential (primary) hypertension - Subjective Interval history: Ms. Rascon is a 61 year old female with a PMH of a-fib, on xarelto, DM, HTN and a chronic non-healing diabetic ulcer. Who presented to OSH from an ECF with a low-grade fever, leukocytosis. She was transferred to [facility] on 12-11-16 for further workup and treatment. Pt got admitted here for acute Rt foot osteomyelitis and worsening ulcer over Rt foot calcneal region. Pt was started on broad spectrum IV Abx. Pt just came from OR after having a Rt BKA. Pt went into A fib with RVR post operatively. She was started on Cardizem gtt. - Constitutional Vitals: Temp Pulse Resp BP Pulse Ox 97.0 F L 99 18 102/72 92 12/13/16 15:48 12/13/16 15:48 12/13/16 15:48 12/13/16 15:48 12/13/16 15:48 General appearance: Present: A&O X 3 (sleepy and sedative), no acute distress, answers questions appropriately - Head Head exam: Present: atraumatic, normal inspection - Respiratory Respiratory exam: Present: decreased breath sounds, wheezes. Absent: rales, respiratory distress, rhonchi - Cardiovascular Cardiovascular exam: Present: irregular rhythm, +S1, +S2 - GI/Abdominal GI/Abdominal exam: Present: distended, normal bowel sounds, soft. Absent: firm , rebound, tenderness - Extremities Exam Additional comments: Rt BKA with dressing on . 2-3 cm chronic ulcer over Left leg - Neurological Exam Neurological exam: Present: alert (semi sleepy) Internal Medicine: Result - Labs CBC & Chem 7: 12/13/16 05:13 12/13/16 05:13 Labs: Short CBC 12/13/16 Range/Units 05:13 WBC 12.5 H (4.3-11.1) K/mcL Hgb 11.6 (11.5-15.4) g/dL Hct 37.8 (35.3-44.9) % Plt Count 278 (140-400) K/mcL Neutrophils # 10.2 H (1.6-8.9) K/mcL BMP 12/13/16 05:13 Sodium 137 Potassium 4.6 H Chloride 108 Carbon Dioxide 22 BUN 22 H Creatinine 1.08 Glucose 165 H Calcium 8.8 - ABG Interpretation ABG results: ABG ABG pH 7.27 pH Units (7.32-7.45) L 12/11/16 22:42 ABG pCO2 53 mmHg (35-45) H 12/11/16 22:42 ABG pO2 98 mmHg (85-104) 12/11/16 22:42 ABG O2 Saturation 97 % (95-98) 12/11/16 22:42 Consult Discharge Plan - Plan Referrals: Carlitos Kat MD [Partnered Physician] - 01/20/17 11:00 am NONE,PCP [Primary Care Provider] - Marcella Singer CNP [Advanced Practice Nurse] - 12/20/16 11:15 am
[2016-12-13] MEDS: *HR* Morphine 2 MG/ML SYRINGE IVP PRN ×2 (16:30→21:58)
[2016-12-13] MEDS ORDERED: Gabapentin 300 MG CAPSULE PO SCH (21:00)
[2016-12-13] MEDS: Mirtazapine 15 MG TABLET PO SCH (22:05)
[2016-12-14] MEDS: Piperacillin/Tazobactam 3.375 GM in D5% in Water (Mini-Bag+) 100 ML IVPB SCH ×3 (00:04→16:29)
[2016-12-14 03:28] LABS: Basophils # 0.1 K/mcL (0.0-0.2); Basophils % 0.6 %; Eosinophils # 0.1 K/mcL (0.0-0.6); Eosinophils % 1.1 %; Hematocrit 33.7 % (35.3-44.9); Immature Granulocytes % 2.5 % (0-4); Lymphocytes # 1.4 K/mcL (0.6-4.6); Lymphocytes % 12.8 %; Mean Corpuscular HGB Conc 29.7 g/dL (31.6-35.5); Mean Corpuscular Hemoglobin 27.5 pg (28.0-33.3); Mean Corpuscular Volume 92.6 fL (83.0-100.0); Mean Platelet Volume 11.1 fL (9.4-12.4); Monocytes # 0.7 K/mcL (0.0-1.3); Monocytes % 6.5 %; Neutrophils # 8.1 K/mcL (1.6-8.9); Platelet Count 300 K/mcL (140-400); Red Blood Count 3.64 M/mcL (3.82-4.97); Red Cell Distribution Width 15.3 % (11.5-14.5); Segmented Neutrophils % 76.5 %
[2016-12-14] MEDS: *HR* Morphine 2 MG/ML SYRINGE IVP PRN ×2 (03:41→07:57)
[2016-12-14 03:47] LABS: Calcium 8.7 mg/dL (8.6-10.8)
[2016-12-14] MEDS ORDERED: Vancomycin 1,000 MG in D5% in Water 250 ML IVPB SCH ×2 (08:00)
[2016-12-14] MEDS: Insulin LISPRO 300 UNITS/3 ML VIAL SQ SCH ×4 (08:31→21:23)
[2016-12-14] MEDS: Cholecalciferol (D-3) 1,000 UNIT TABLET PO SCH (08:46)
[2016-12-14] MEDS: Gabapentin 300 MG CAPSULE PO SCH ×2 (08:46→21:25)
[2016-12-14] MEDS: Metoprolol 100 MG TABLET PO SCH ×2 (08:46→21:26)
[2016-12-14] MEDS: Insulin DETEMIR 100 UNIT/ML X5UNITS SQ SCH ×2 (08:47→21:26)
[2016-12-14] MEDS: amLODIPine 5 MG TABLET PO SCH (08:47)
--- NOTE | 2016-12-14 09:57 | Vascular/Endovas Progress Note ---
Date of Encounter: 12/14/16 Time of Encounter: 09:56 - Assessment and plan (1) Peripheral arterial disease Current Visit: Yes Status: Acute Patient is postoperative day #1 following right below the knee amputation. The dressing is intact. The patient appears be hemodynamically stable. Anticipate the right BKA dressing to be removed tomorrow. Patient is to be evaluated by physical therapy. Patient will then be transferred in the near future to a rehabilitation center. - Subjective Interval history: Patient is talkative but appears confused and does not complete her sentences area and it is difficult to obtain a significant cogent history from her this morning. Vital Signs, Last 4 Hours Temp Pulse Resp BP Pulse Ox 12/14/16 07:45 97.4 F L 118 18 120/88 96 - Physical Examination General: Present: No Apparent Distress Vascular: Present: Amputation(s) (Right axuft-[id number] amputation dressing is intact. Patient is status post a left TMA.) - VTE Documentation of Mechanical Device: Intermittent pneumatic compression device Results 12/14/16 02:54 12/14/16 02:54 Lab Results, Last 24 hours 12/14/16 12/14/16 12/14/16 02:54 02:54 02:54 WBC 10.6 Hgb 10.0 L D Hct 33.7 L Plt Count 300 Sodium 139 Potassium 5.0 H Chloride 109 Carbon Dioxide 23 BUN 26 H Creatinine 1.26 H Glucose 124 H Calcium 8.7 Magnesium 2.1 Consult Discharge Plan - Plan Referrals: Carlitos Kat MD [Partnered Physician] - 01/20/17 11:00 am NONE,PCP [Primary Care Provider] - Marcella Singer CNP [Advanced Practice Nurse] - 12/20/16 11:15 am
--- NOTE | 2016-12-14 12:52 | Internal Med Progress Note ---
Date of Encounter: 12/14/16 Time of Encounter: 12:50 - Assessment and plan (1) Sepsis Current Visit: Yes Status: Acute Assessment and plan: Her wound cx from 12/12/16 - growing G-ve rods Reviewed foot Cx results from 12/04/16 growing PNC resistant E. Coli and Proteus mirabilis Cont abx Zosyn d/c Vancomycin ID is on board since pt had BKA, may not need custodial IV Abx Qualifiers: Sepsis type: sepsis due to unspecified organism Qualified Code(s): A41.9 - Sepsis, unspecified organism (2) Acute osteomyelitis of right calcaneus Current Visit: No Status: Acute Assessment and plan: s/p Rt leg BKA amputation by vascular surgery Dr. Kat Cont holding Xarelto for now .. (3) Atrial fibrillation Current Visit: No Status: Acute Assessment and plan: rate controlled now Cont home dose of Metoprolol at 100mg BID switched to PO cardizem form gtt will resume Xarelto when surgery clears Qualifiers: Atrial fibrillation type: chronic Qualified Code(s): I48.2 - Chronic atrial fibrillation (4) RANCHO (acute kidney injury) Current Visit: Yes Status: Acute Assessment and plan: Due to sepsis improving avoid nephro toxic meds renally dosed all the abx (5) Peripheral arterial disease Current Visit: Yes Status: Acute Assessment and plan: s/p Angioplasty on 11/07/[address] Kat Had Proximal Rt posterior tibial artery 95 % stenosis treated with a balloon resume ASA and Xarelto once pt gets stabilized (6) Diabetes mellitus Current Visit: No Status: Chronic Assessment and plan: on ISS + Levemir HbA1C 8.5 Qualifiers: Diabetes mellitus type: type 2 Diabetes mellitus complication status: with skin complications Diabetes mellitus complication detail: with foot ulcer Diabetes mellitus terminal computer operator insulin use: with terminal computer operator use Qualified Code(s) : E11.621 - Type 2 diabetes mellitus with foot ulcer; L97.509 - Non-pressure chronic ulcer of other part of unspecified foot with unspecified severity; Z79.4 - terminal computer operator (current) use of insulin (7) H/O deep venous thrombosis Current Visit: No Status: Resolved Assessment and plan: SCD (8) Tobacco abuse Current Visit: No Status: Chronic Assessment and plan: Counseled to quit smoking placed her on nicotine patch (9) HTN (hypertension) Current Visit: Yes Status: Acute Assessment and plan: stable with current meds Qualifiers: Hypertension type: essential hypertension Qualified Code(s): I10 - Essential (primary) hypertension - Subjective Interval history: Ms. Rascon is a 61 year old female with a PMH of a-fib, on xarelto, DM, HTN and a chronic non-healing diabetic ulcer. Who presented to OSH from an ECF with a low-grade fever, leukocytosis. She was transferred to [facility] on 12-11-16 for further workup and treatment. Pt got admitted here for acute Rt foot osteomyelitis and worsening ulcer over Rt foot calcneal region. 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 Pt went into A fib with RVR post operatively, now rate well controlled with Cardizem gtt. Today pt is more alert, awake and O x 3. Pain is tolerable with medications - Constitutional Vitals: Temp Pulse Resp BP Pulse Ox 97.0 F L 76 18 107/72 94 12/14/16 11:23 12/14/16 11:23 12/14/16 11:23 12/14/16 11:23 12/14/16 11:23 General appearance: Present: A&O X 3 (sleepy and sedative), no acute distress, answers questions appropriately - Head Head exam: Present: atraumatic, normal inspection - Neck Neck exam general surgery: Present: supple. Absent: tenderness - Respiratory Respiratory exam: Present: decreased breath sounds, wheezes. Absent: respiratory distress - Cardiovascular Cardiovascular exam: Present: irregular rhythm, +S1, +S2. Absent: systolic murmur - GI/Abdominal GI/Abdominal exam: Present: normal bowel sounds, soft. Absent: distended, rebound, rigid - Extremities Exam Extremities exam: Absent: calf tenderness, tenderness Additional comments: chronic ulcer over Left leg mid mtz region Rt leg BKA s/p dressing over the stump.. + swelling around the stump - Neurological Exam Neurological exam: Present: alert, oriented X3 - Psychiatric Psychiatric exam: Present: normal affect, normal mood Internal Medicine: Result - Labs CBC & Chem 7: 12/14/16 02:54 12/14/16 02:54 Labs: Short CBC 12/14/16 Range/Units 02:54 WBC 10.6 (4.3-11.1) K/mcL Hgb 10.0 L D (11.5-15.4) g/dL Hct 33.7 L (35.3-44.9) % Plt Count 300 (140-400) K/mcL Neutrophils # 8.1 (1.6-8.9) K/mcL BMP 12/14/16 02:54 Sodium 139 Potassium 5.0 H Chloride 109 Carbon Dioxide 23 BUN 26 H Creatinine 1.26 H Glucose 124 H Calcium 8.7 - ABG Interpretation ABG results: ABG ABG pH 7.27 pH Units (7.32-7.45) L 12/11/16 22:42 ABG pCO2 53 mmHg (35-45) H 12/11/16 22:42 ABG pO2 98 mmHg (85-104) 12/11/16 22:42 ABG O2 Saturation 97 % (95-98) 12/11/16 22:42 - VTE Documentation of Mechanical Device: Intermittent pneumatic compression device Consult Discharge Plan - Plan Referrals: Carlitos Kat MD [Partnered Physician] - 01/20/17 11:00 am NONE,PCP [Primary Care Provider] - Marcella Singer CNP [Advanced Practice Nurse] - 12/20/16 11:15 am
[2016-12-14] MEDS ORDERED: Furosemide 20 MG/2 ML VIAL IVP ONE (13:02)
[2016-12-14] MEDS: Mirtazapine 15 MG TABLET PO SCH (21:26)
[2016-12-15] MEDS: Piperacillin/Tazobactam 3.375 GM in D5% in Water (Mini-Bag+) 100 ML IVPB SCH (01:03)
[2016-12-15 01:35] LABS: Basophils % 0.3 %; Eosinophils # 0.3 K/mcL (0.0-0.6); Eosinophils % 2.4 %; Hematocrit 32.5 % (35.3-44.9); Hemoglobin 9.8 g/dL (11.5-15.4); Immature Granulocytes % 2.4 % (0-4); Lymphocytes # 1.6 K/mcL (0.6-4.6); Lymphocytes % 13.5 %; Mean Corpuscular HGB Conc 30.2 g/dL (31.6-35.5); Mean Corpuscular Hemoglobin 27.5 pg (28.0-33.3); Mean Corpuscular Volume 91.3 fL (83.0-100.0); Mean Platelet Volume 10.5 fL (9.4-12.4); Monocytes # 0.7 K/mcL (0.0-1.3); Monocytes % 6.1 %; Neutrophils # 8.6 K/mcL (1.6-8.9); Platelet Count 288 K/mcL (140-400); Red Blood Count 3.56 M/mcL (3.82-4.97); Red Cell Distribution Width 14.8 % (11.5-14.5); Segmented Neutrophils % 75.3 %
[2016-12-15 01:52] LABS: BUN/Creatinine Ratio 21 (6-26); Blood Urea Nitrogen 22 mg/dL (7-20); Calcium 8.5 mg/dL (8.6-10.8); Carbon Dioxide 24 mEq/L (19-29); Chloride 109 mEq/L (98-109); Glucose 98 mg/dL (70-99); Magnesium 2.1 mg/dL (1.6-2.6); Osmolality,Calculated 291 (280-300); Potassium 4.4 mEq/L (3.5-4.5); Sodium 139 mEq/L (136-145); eGFR For African Americans > 60 (> 60); eGFR For Non-African Americans 53 (> 60)
--- NOTE | 2016-12-15 04:19 | Event Note ---
Date of Encounter: 12/15/16 Time of Encounter: 04:17 AMS (new change) Acute met encephalopathy/delirium Order CT head, ABG, CXR, UA Switch Zosyn for cefepime (prior cultures of E coli resistant to Zosyn) Latest cultures final reports pending 3rd GNB to be identified
[2016-12-15] MEDS: Cefepime HCl 1,000 MG in D5% in Water (Mini-Bag+) 100 ML IVPB SCH ×2 (05:12→15:32)
[2016-12-15 05:14] LABS: ABG Base Excess 1.2 mEq/L (-2.0 to 3.0); ABG HCO3 28.2 mEQ/L (21-27); ABG Oxygen Saturation 98 % (95-98); ABG PCO2 56 mmHg (35-45); ABG PH 7.31 pH Units (7.32-7.45); ABG PO2 116 mmHg (85-104); ABG TCO2 29.9 mEq/L (20-26)
[2016-12-15 08:42] LABS: Bilirubin,Urine Negative (Negative); Blood,Urine Moderate (Negative); Clarity,Urine Turbid (Clear); Color,Urine Yellow (Yellow); Glucose,Urine (UA) Normal (Normal); Ketones,Urine Negative (Negative); Leukocyte Esterase,Urine Large (Negative); Nitrite,Urine Negative (Negative); Protein,Urine 100 mg/dL (Neg-Trace); Specific Gravity,Urine 1.022 (1.010-1.025); Urobilinogen,Urine Normal (Normal)
[2016-12-15 08:44] LABS: Squamous Epithelial Cell,Urine Many per lpf (None-Few); WBC,Urine TNTC per hpf (0-3)
[2016-12-15] MEDS: Cholecalciferol (D-3) 1,000 UNIT TABLET PO SCH (08:50)
[2016-12-15] MEDS: Gabapentin 300 MG CAPSULE PO SCH ×2 (08:50→20:57)
[2016-12-15] MEDS: Metoprolol 100 MG TABLET PO SCH ×2 (08:50→20:57)
[2016-12-15] MEDS: amLODIPine 5 MG TABLET PO SCH (08:50)
[2016-12-15] MEDS: Insulin LISPRO 300 UNITS/3 ML VIAL SQ SCH ×4 (08:51→20:58)
[2016-12-15] MEDS: Insulin DETEMIR 100 UNIT/ML X5UNITS SQ SCH ×2 (08:57→20:58)
[2016-12-15 09:02] LABS: Bacteria,Urine Many per hpf (None-Few); Hyaline Casts,Urine None Seen per lpf (None-Few)
[2016-12-15 09:03] LABS: Yeast,Urine Many per hpf (None Seen)
--- NOTE | 2016-12-15 10:52 | Vascular/Endovas Progress Note ---
Date of Encounter: 12/15/16 Time of Encounter: 10:49 - Assessment and plan (1) Peripheral arterial disease Current Visit: Yes Status: Acute Patient is postoperative day #2 following right below the knee amputation. The dressing removed and amputation site appears clean and dry and without signs of infection. The patient is hemodynamically stable. Patient is to be evaluated by physical therapy. Patient will then be transferred in the near future to a rehabilitation center. - Subjective Interval history: Patient is talkative but has difficulty expressing herself in a complete thought and, as yesterday, it is difficult to obtain a significant cogent history from her this morning. She denies any severe pain. She states the right BKA feels numb. Vital Signs, Last 4 Hours Temp Pulse Resp BP Pulse Ox 12/15/16 08:41 105 12/15/16 08:18 97.5 F L 105 15 115/63 99 - Physical Examination General: Present: Conversant, No Apparent Distress HEENT: Present: Atraumatic, Other (hirsutism of face) Vascular: Present: Amputation(s) (The right BKA surgical dressing was removed. The wound was inspected. The staple line is intact. The anterior and posterior flaps are viable. There are no signs of ischemia along the staple line. There is no drainage or cellulitis. She has mild erythema over the patella area suggesting pressure from her wrap.) - VTE Documentation of Mechanical Device: Intermittent pneumatic compression device Results 12/15/16 01:25 12/15/16 01:25 Lab Results, Last 24 hours 12/15/16 12/15/16 01:25 01:25 WBC 11.5 H Hgb 9.8 L Hct 32.5 L Plt Count 288 Sodium 139 Potassium 4.4 Chloride 109 Carbon Dioxide 24 BUN 22 H Creatinine 1.05 Glucose 98 Calcium 8.5 L Magnesium 2.1 Consult Discharge Plan - Plan Referrals: Carlitos Kat MD [Partnered Physician] - 01/20/17 11:00 am NONE,PCP [Primary Care Provider] - Marcella Singer CNP [Advanced Practice Nurse] - 12/20/16 11:15 am
[2016-12-15] MEDS: *HR* Morphine 2 MG/ML SYRINGE IVP PRN (11:38)
--- NOTE | 2016-12-15 14:39 | Internal Med Progress Note ---
Date of Encounter: 12/15/16 Time of Encounter: 14:37 - Assessment and plan (1) Sepsis Current Visit: Yes Status: Acute Assessment and plan: Her wound cx from 12/12/16 - growing Pseudomonas, Proteus and E. Coli Reviewed foot Cx results from 12/04/16 growing PNC resistant E. Coli and Proteus mirabilis Swicthed abx to Cefepime ID is on board since pt had BKA, may not need terminologist IV Abx Qualifiers: Sepsis type: sepsis due to unspecified organism Qualified Code(s): A41.9 - Sepsis, unspecified organism (2) Acute osteomyelitis of right calcaneus Current Visit: No Status: Acute Assessment and plan: s/p Rt leg BKA amputation by vascular surgery Dr. Kat Cont holding Xarelto for now .. (3) Acute delirium Current Visit: Yes Status: Resolved Assessment and plan: toxic encephalopathy with sedative / narcotic pain meds and infection Resolved will switch to PO pain meds only (4) Atrial fibrillation Current Visit: No Status: Acute Assessment and plan: rate controlled now with PO Cardizem and home dose of Metoprolol at 100mg BID will resume Xarelto when surgery clears Qualifiers: Atrial fibrillation type: chronic Qualified Code(s): I48.2 - Chronic atrial fibrillation (5) RANCHO (acute kidney injury) Current Visit: Yes Status: Acute Assessment and plan: Due to sepsis improving avoid nephro toxic meds renally dosed all the abx (6) Peripheral arterial disease Current Visit: Yes Status: Acute Assessment and plan: s/p Angioplasty on 11/07/[address] Kat Had Proximal Rt posterior tibial artery 95 % stenosis treated with a balloon resume ASA and Xarelto once pt gets stabilized (7) Diabetes mellitus Current Visit: No Status: Chronic Assessment and plan: on ISS + Levemir HbA1C 8.5 Qualifiers: Diabetes mellitus type: type 2 Diabetes mellitus complication status: with skin complications Diabetes mellitus complication detail: with foot ulcer Diabetes mellitus terminologist insulin use: with jail use Qualified Code(s) : E11.621 - Type 2 diabetes mellitus with foot ulcer; L97.509 - Non-pressure chronic ulcer of other part of unspecified foot with unspecified severity; Z79.4 - shelter (current) use of insulin (8) H/O deep venous thrombosis Current Visit: No Status: Resolved Assessment and plan: SCD (9) Tobacco abuse Current Visit: No Status: Chronic Assessment and plan: Counseled to quit smoking placed her on nicotine patch (10) HTN (hypertension) Current Visit: Yes Status: Acute Assessment and plan: stable with current meds Qualifiers: Hypertension type: essential hypertension Qualified Code(s): I10 - Essential (primary) hypertension - Subjective Interval history: Ms. Rascon is a 61 year old female with a PMH of a-fib, on xarelto, DM, HTN and a chronic non-healing diabetic ulcer. Who presented to OSH from an ECF with a low-grade fever, leukocytosis. She was transferred to [facility] on 12-11-16 for further workup and treatment. Pt got admitted here for acute Rt foot osteomyelitis and worsening ulcer over Rt foot calcneal region. 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 Pt went into A fib with RVR post operatively. Apparently this morning pt had an episode of acute change in mental status. Today pt is more alert, awake and O x 3. Pain is tolerable with medications. - Constitutional Vitals: Temp Pulse Resp BP Pulse Ox 97.7 F 92 16 116/76 4 12/15/16 11:25 12/15/16 11:52 12/15/16 11:47 12/15/16 11:47 12/15/16 11:47 General appearance: Present: A&O X 3, no acute distress, answers questions appropriately - Head Head exam: Present: atraumatic, normal inspection - Neck Neck exam general surgery: Present: supple. Absent: tenderness - Respiratory Respiratory exam: Present: decreased breath sounds, wheezes. Absent: rales, respiratory distress, rhonchi - Cardiovascular Cardiovascular exam: Present: irregular rhythm, +S1, +S2 - GI/Abdominal GI/Abdominal exam: Present: normal bowel sounds, soft. Absent: rebound, rigid, tenderness - Extremities Exam Additional comments: clean Rt BKA stump. healing ulcer over left leg mid mtz region - Neurological Exam Neurological exam: Present: alert, oriented X3. Absent: no focal deficits, facial droop, speech deficit - Psychiatric Psychiatric exam: Present: normal affect, normal mood Internal Medicine: Result - Labs CBC & Chem 7: 12/15/16 01:25 12/15/16 01:25 Labs: Short CBC 12/15/16 Range/Units 01:25 WBC 11.5 H (4.3-11.1) K/mcL Hgb 9.8 L (11.5-15.4) g/dL Hct 32.5 L (35.3-44.9) % Plt Count 288 (140-400) K/mcL Neutrophils # 8.6 (1.6-8.9) K/mcL BMP 12/15/16 01:25 Sodium 139 Potassium 4.4 Chloride 109 Carbon Dioxide 24 BUN 22 H Creatinine 1.05 Glucose 98 Calcium 8.5 L Urine 12/15/16 Range/Units 08:05 Urine Color Yellow (Yellow) Urine Clarity Turbid A (Clear) Urine pH 6.0 (5.0-8.0) pH Units Ur Specific [place] 1.022 (1.010-1.025) Urine Protein 100 H (Neg-Trace) mg/dL Urine Glucose (UA) Normal (Normal) mg/dL - ABG Interpretation ABG results: ABG ABG pH 7.31 pH Units (7.32-7.45) L 12/15/16 05:05 ABG pCO2 56 mmHg (35-45) H 12/15/16 05:05 ABG pO2 116 mmHg (85-104) H 12/15/16 05:05 ABG O2 Saturation 98 % (95-98) 12/15/16 05:05 - Impressions Impressions Chest X-Ray 12/15/16 04:12 IMPRESSION: Left lower lobe atelectasis or pneumonia. D/ / Aaron Phelps MD / Aaron Phelps MD Interpreting Provider: Aaron Phelps MD Head CT 12/15/16 04:12 IMPRESSION: Limited exam with no definite acute hemorrhage or evidence for acute ischemia. D/ / Aaron Phelps MD / Aaron Phelps MD Interpreting Provider: Aaron Phelps MD - VTE Documentation of Mechanical Device: Intermittent pneumatic compression device Consult Discharge Plan - Plan Referrals: Carlitos Kat MD [Partnered Physician] - 01/20/17 11:00 am NONE,PCP [Primary Care Provider] - Marcella Singer CNP [Advanced Practice Nurse] - 12/20/16 11:15 am
[2016-12-15] MEDS: *HR* OxyCODONE/APAP 5/325 TABLET PO PRN (15:32)
[2016-12-15] MEDS: *HR* Rivaroxaban 10 MG TABLET PO SCH (18:50)
[2016-12-15] MEDS: Mirtazapine 15 MG TABLET PO SCH (20:56)
[2016-12-16] MEDS: Cefepime HCl 1,000 MG in D5% in Water (Mini-Bag+) 100 ML IVPB SCH ×2 (03:45→16:57)
[2016-12-16 04:54] LABS: Eosinophils % 3.2 %; Hematocrit 32.9 % (35.3-44.9); Hemoglobin 9.8 g/dL (11.5-15.4); Immature Granulocytes % 3.5 % (0-4); Mean Corpuscular HGB Conc 29.8 g/dL (31.6-35.5); Mean Corpuscular Hemoglobin 27.4 pg (28.0-33.3); Mean Corpuscular Volume 91.9 fL (83.0-100.0); Mean Platelet Volume 10.7 fL (9.4-12.4); Monocytes % 5.3 %; Platelet Count 305 K/mcL (140-400); Red Blood Count 3.58 M/mcL (3.82-4.97); Red Cell Distribution Width 14.7 % (11.5-14.5); Segmented Neutrophils % 76.4 %
[2016-12-16 04:55] LABS: Basophils # 0.1 K/mcL (0.0-0.2); Basophils % 0.6 %; Eosinophils # 0.3 K/mcL (0.0-0.6); Lymphocytes # 1.2 K/mcL (0.6-4.6); Monocytes # 0.6 K/mcL (0.0-1.3)
[2016-12-16] MEDS: Insulin DETEMIR 100 UNIT/ML X5UNITS SQ SCH (09:02)
[2016-12-16] MEDS: Insulin LISPRO 300 UNITS/3 ML VIAL SQ SCH ×3 (09:02→16:58)
[2016-12-16] MEDS: *HR* OxyCODONE/APAP 5/325 TABLET PO PRN ×2 (09:41→17:03)
[2016-12-16] MEDS: Metoprolol 100 MG TABLET PO SCH (09:43)
[2016-12-16] MEDS: Cholecalciferol (D-3) 1,000 UNIT TABLET PO SCH (09:43)
[2016-12-16] MEDS: Gabapentin 300 MG CAPSULE PO SCH (09:43)
[2016-12-16] MEDS: amLODIPine 5 MG TABLET PO SCH (09:43)
--- NOTE | 2016-12-16 12:58 | Vascular/Endovas Progress Note ---
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 Her incision is healing well. She may be discharged to rehab. She will need daily dressing changes with 4x4 gauze, kerlix and a comfortably wrapped mak bandage. She will follow-up in 4 weeks for staple removal. Qualifiers: Lower extremity ulceration location: other part of foot Qualified Code(s): I70.235 - Atherosclerosis of ch[place]koot arteries of right leg with ulceration of other part of foot; I70.245 - Atherosclerosis of ch[place]koot arteries of left leg with ulceration of other part of foot - Subjective Interval history: The patient reports adequate pain control. She denies chest pain or shortness of breath. - Physical Examination General: Present: No Apparent Distress Cardiac: Present: Reg Rate and Rhythm Lungs: Present: Normal Breath Sounds Vascular: Present: Amputation(s) (incision clean, dry and intact without erythema or drainage) - VTE Documentation of Mechanical Device: Intermittent pneumatic compression device Results 12/16/16 04:23 12/15/16 01:25 Lab Results, Last 24 hours 12/16/16 04:23 WBC 10.5 Hgb 9.8 L Hct 32.9 L Plt Count 305 Consult Discharge Plan - Plan Referrals: Carlitos Kat MD [Partnered Physician] - 01/20/17 11:00 am NONE,PCP [Primary Care Provider] - Marcella Singer CNP [Advanced Practice Nurse] - (PATIENT IS GOING TO [facility], NO PCP APPOINTMENT NEEDED)
--- NOTE | 2016-12-16 13:57 | Discharge Summary ---
Date of Encounter: 12/16/16 Time of Encounter: 13:54 - Discharge Diagnosis (1) Sepsis Priority: Primary Status: Acute Qualifiers: Sepsis type: sepsis due to unspecified organism Qualified Code(s): A41.9 - Sepsis, unspecified organism (2) Acute osteomyelitis of right calcaneus Priority: Primary Status: Acute (3) Acute delirium Priority: Secondary Status: Resolved (4) Atrial fibrillation Priority: Secondary Status: Acute Qualifiers: Atrial fibrillation type: chronic Qualified Code(s): I48.2 - Chronic atrial fibrillation (5) RANCHO (acute kidney injury) Priority: Secondary Status: Resolved (6) Peripheral arterial disease Priority: Secondary Status: Acute (7) Diabetes mellitus Priority: Secondary Status: Chronic Qualifiers: Diabetes mellitus type: type 2 Diabetes mellitus complication status: with skin complications Diabetes mellitus complication detail: with foot ulcer Diabetes mellitus 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 operator insulin use: with buttermilk drier operator use Qualified Code(s) : E11.621 - Type 2 diabetes mellitus with foot ulcer; L97.509 - Non-pressure chronic ulcer of other part of unspecified foot with unspecified severity; Z79.4 - intermediate (current) use of insulin (8) H/O deep venous thrombosis Priority: Secondary Status: Resolved (9) Tobacco abuse Priority: Secondary Status: Chronic (10) HTN (hypertension) Priority: Secondary Status: Acute Qualifiers: Hypertension type: essential hypertension Qualified Code(s): I10 - Essential (primary) hypertension - Discharge Medications Prescriptions: Diltiazem CD (24hr) [Cardizem CD] 120 mg PO DAILY #30 cap.er.24h OxyCODONE/APAP 5/325 [Percocet 5/325 MG] 1 each PO Q6H PRN #15 tab PRN Reason: Moderate Pain Home Medications: Sertraline [Zoloft] 100 mg PO DAILY 07/18/15 [History] Mirtazapine [Remeron] 30 mg PO HS 06/17/16 [History] Rivaroxaban [Xarelto] 15 mg PO 1700 tablet 11/11/16 [Rx] Atorvastatin [Lipitor] 10 mg PO DAILY 12/12/16 [History] Cholecalciferol (D-3) [Vitamin D] 1,000 unit PO DAILY 12/12/16 [History] Clopidogrel [Plavix] 75 mg PO DAILY 12/12/16 [History] Furosemide [Lasix] 40 mg PO 08,14 12/12/16 [History] Gabapentin [Neurontin] 600 mg PO QID 12/12/16 [History] Insulin Glargine,Hum.rec.anlog [Basaglar Kwikpen U-100] 15 unit SQ BID 12/12/16 [History] Insulin LISPRO [HumaLOG] 2 - 8 units SQ AD PRN 12/12/16 [History] Insulin LISPRO [HumaLOG] 8 units SQ TIDWM 12/12/16 [History] Loratadine [Allergy Relief] 10 mg PO DAILY 12/12/16 [History] Metoprolol [Lopressor] 100 mg PO BID 12/12/16 [History] Multivitamin,Stress Formula [Stress Formula] 1 tab PO DAILY 12/12/16 [History] [place]-3/Dha/Epa/Fish Oil [Fish Oil 1,000 mg Softgel] 1 each PO DAILY 12/12/16 [ History] Potassium Chloride [K-Tab ER] 20 meq PO BID 12/12/16 [History] amLODIPine [Norvasc] 5 mg PO DAILY 12/12/16 [History] Diltiazem CD (24hr) [Cardizem CD] 120 mg PO DAILY #30 cap.er.24h 12/16/16 [Rx] OxyCODONE/APAP 5/325 [Percocet 5/325 MG] 1 each PO Q6H PRN #15 tab 12/16/16 [Rx] Allergies/Adverse Reactions: Allergies codeine Allergy (Verified 12/12/16 08:39) See Comments Unknown reaction. Paroxetine [From Paxil] Allergy (Verified 12/12/16 08:39) See Comments Unknown reaction. Penicillins Allergy (Verified 12/12/16 08:39) See Comments Unknown reaction. Procedures/tests Complete & Pending: Procedures Performed prior 72 hours Category Date Time Status CT head/brain wo con [CT] Stat Cat Scan 12/15/16 04:12 Completed RT BKA by vasuclar surgery Dr. Kat Date of admission: 12/11/16 19:06 Primary care physician: PCP NONE Consults: 12/12/16 09:48 Consult to Physician [CONS] Routine Consulting Provider: Davie Toro Reason for Consult: Patient follows with Dr. Toro as outpatient. Call Completed: No 12/12/16 10:58 Consult to Infectious Diseases [CONS] Routine Consulting Provider: Infectious Disease Janine Reason for Consult: Acute Rt foot cellulitis - possible osteomyelitis Call Completed: Yes 12/12/16 11:25 Consult to Vascular Surgery [CONS] Routine Consulting Provider: Vascular Surgery Janine Reason for Consult: Rt foot amputation [address] Kat Call Completed: Yes 12/13/16 15:50 Consult to Occupational Therapy [CONS] Routine Comment: Evaluate, develop and implement POC Reason for Consult: Right below knee amputation. Probable discharge on . Consult to Physical Therapy [CONS] Routine Comment: Evaluate, develop and implement POC Reason for Consult: Right below knee amputation. Probable discharge on . Consult to Exterminator Termite [CONS] Routine Reason for SW Consult: Right below knee amputation. Probable discharge on 12/16/16. - Patient Status Disposition: Transfer SNF Condition: Good Overall status at discharge: patient is back to baseline - Discharge Instructions Follow Up With: Carlitos Kat MD [Partnered Physician] - 01/20/17 11:00 am NONE,PCP [Primary Care Provider] - Marcella Singer, SPLITTING MACHINE OPERATOR [Advanced Practice Nurse] - (PATIENT IS GOING TO ECF, NO PCP APPOINTMENT NEEDED) - Diet and Activity Activity: as per physical therapy Diet: low salt diet Hospital course: Ms. Rascon is a 61 year old female with a PMH of a-fib, on xarelto, DM, HTN and a chronic non-healing diabetic ulcer. Who presented to OSH from an ECF with a low-grade fever, leukocytosis. She was transferred to [facility] on 12-11-16 for further workup and treatment. Pt got admitted here for acute Rt foot osteomyelitis and worsening ulcer over Rt foot calcneal region. 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 Continued on broad spec abx with Cefepime. Pt was evaluated by ID too. Her Rt BKA wound looks clean and no signs of infection / no active disachrge noticed. at this point pt was cleared to d/c home by vascular surgeon. Pt went into A fib with RVR post operatively, required Cardizem gtt for 1 day. Now her HR is well controlled with PO Cardizem and Metoprolol, also resumed her Xarelto for anticoagulation. All her blood cx were negative, she remained afebrile and her WBC is in WNL. ID did not recommend any more abx therapy. Will d/c her back to SNF in stable condition today. - Time Spent with Patient Total time spent providing and/or coordinating discharge services: - Constitutional Vitals: Temp Pulse Resp BP Pulse Ox 98.2 F 100 18 107/68 95 12/16/16 08:35 12/16/16 08:35 12/16/16 08:35 12/16/16 08:35 12/16/16 08:35 General appearance: Present: A&O X 3, no acute distress, answers questions appropriately - Head Head exam: Present: atraumatic, normal inspection - Neck Neck exam general surgery: Present: supple. Absent: lymphadenopathy, thyromegaly - Respiratory Respiratory exam: Present: decreased breath sounds, wheezes. Absent: rales, respiratory distress, rhonchi - Cardiovascular Cardiovascular exam: Present: irregular rhythm, +S1, +S2. Absent: systolic murmur - GI/Abdominal GI/Abdominal exam: Present: normal bowel sounds, soft. Absent: rebound, rigid, tenderness - Extremities Exam Additional comments: clean Rt BKA stump. healing ulcer over left leg mid mtz region - Psychiatric Psychiatric exam: Present: normal affect, normal mood - VTE Documentation of Mechanical Device: Intermittent pneumatic compression device
--- NOTE | 2016-12-16 15:43 | Infectious Disease Progress No ---
Date of Encounter: 12/16/16 Time of Encounter: 10:00 - Assessment and Plan (1) Sepsis Status: Acute The patient had three SIRS criteria plus RANCHO on admission. Likely secondary to right foot osteomyelitis. Improved. The patient has been afebrile. WBC normal. RANCHO resolved. Blood cultures drawn in the ER at [facility] are negative x 2 sets. Additional blood cultures upon arrival here 12/11/16 are also negative 2 sets. Qualifiers: Sepsis type: sepsis due to unspecified organism Qualified Code(s): A41.9 - Sepsis, unspecified organism (2) Acute osteomyelitis of right calcaneus Status: Acute Location: Right calcaneus. Causative organism: P. mirabilis and E. coli per previous wound culture and bone biopsy. Wound culture also positive for PSEA. Concern for anaerobes as well given the soft tissue gas on the x-ray. Secondary to non-healing diabetic foot ulcer. Right foot XR completed in the ED showed large soft tissue ulceration to the plantar aspect of the hindfoot with erosive changes and changes consistent with osteomyelitis of the calcaneus. Soft tissue gas noted on the x-ray concerning for gas-forming organism as well. Vascular surgery consulted. Status post BKA 12/13/16. Continue wound care and activity restrictions as outlined by the vascular team. Vancomycin discontinued by the primary team over the weekend. Discontinue Cefepime. No further antibiotic therapy is needed for the osteomyelitis. No additional recommendations from the ID team. Will sign off. Please re- consult if needed. (3) Pneumonia Status: Acute CXR shows LLL atelectasis or PNA. Based on clinical picture, more likely atelectasis. Qualifiers: Pneumonia type: due to unspecified organism Laterality: left Lung location: lower lobe of lung Qualified Code(s): J18.1 - Lobar pneumonia, unspecified organism (4) Acute delirium Status: Resolved Likely secondary to recent anesthesia exposure. CT head negative. CXR shows likely atelectasis. ABGs shows hypercapnea. BIPAP per primary team recommendations. Continue to monitor closely. (5) RANCHO (acute kidney injury) Status: Resolved Likely secondary to sepsis. Resolved. Continue to trend. Avoid nephrotoxins and dose-adjust antibiotics. (6) Non-healing surgical wound Status: Resolved Likely secondary to PAD. Status post BKA. Qualifiers: Encounter type: initial encounter Qualified Code(s): T81.89XA - Other complications of procedures, not elsewhere classified, initial encounter (7) Acute diarrhea Status: Resolved The patient states she has not had any diarrhea today. Low index of suspicion for C. diff. Likely secondary to recent antibiotic use. If patient has increase in stool frequency to 4 or more stools per day, consider testing for C. diff. 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 Status: Chronic Qualifiers: Lower extremity ulceration location: other part of foot Qualified Code(s): I70.235 - Atherosclerosis of unga arteries of right leg with ulceration of other part of foot; I70.245 - Atherosclerosis of unga arteries of left leg with ulceration of other part of foot (9) Tobacco abuse Status: Chronic (10) HTN (hypertension) Status: Acute Qualifiers: Hypertension type: essential hypertension Qualified Code(s): I10 - Essential (primary) hypertension (11) Diabetes mellitus Status: Chronic Recommend aggressive glucose monitoring and control to promote wound healing and prevent re-infection. Qualifiers: Diabetes mellitus type: type 2 Diabetes mellitus complication status: with skin complications Diabetes mellitus complication detail: with foot ulcer Diabetes mellitus residential insulin use: with terminal block assembler use Qualified Code(s) : E11.621 - Type 2 diabetes mellitus with foot ulcer; L97.509 - Non-pressure chronic ulcer of other part of unspecified foot with unspecified severity; Z79.4 - jail (current) use of insulin - Subjective Interval history: Patient seen and examined. Weekend notes reviewed No acute events noted overnight. Patient appears confused and diaphoretic. Per the patient's friend, she gets like this after surgery. Patient's AMS precludes my ability to obtain any ROS information from her. Per nursing, no new issues at this time. Infect Dis PN-Objective Data - Labs CBC & Chem 7: 12/16/16 04:23 12/15/16 01:25 Labs: Laboratory Results - last 24 hr 12/15/16 12/15/16 12/15/16 04:10 08:11 11:22 WBC RBC Hgb Hct MCV MCH MCHC RDW Plt Count MPV Immature Gran % Seg Neutrophils % Lymphocytes % Monocytes % Eosinophils % Basophils % Neutrophils # Lymphocytes # Monocytes # Eosinophils # Basophils # POC Glucose 94 H 100 H 126 H 12/15/16 12/15/16 12/16/16 15:09 20:30 04:23 WBC 10.5 RBC 3.58 L Hgb 9.8 L Hct 32.9 L MCV 91.9 MCH 27.4 L MCHC 29.8 L RDW 14.7 H Plt Count 305 MPV 10.7 Immature Gran % 3.5 Seg Neutrophils % 76.4 Lymphocytes % 11.0 Monocytes % 5.3 Eosinophils % 3.2 Basophils % 0.6 Neutrophils # 8.0 Lymphocytes # 1.2 Monocytes # 0.6 Eosinophils # 0.3 Basophils # 0.1 POC Glucose 156 H 109 H Cultures: Cultures 12/12/16 05:50 Wound Culture - Final Right Foot Pseudomonas aeruginosa Escherichia coli Proteus mirabilis 12/11/16 19:40 Blood Culture - Preliminary Peripheral Venipuncture No growth. 12/11/16 19:46 Blood Culture - Preliminary Peripheral Venipuncture No growth. Serology 12/15/16 Range/Units 08:05 Urine Color Yellow (Yellow) Urine Clarity Turbid A (Clear) Urine pH 6.0 (5.0-8.0) pH Units Ur Specific [place] 1.022 (1.010-1.025) Urine Protein 100 H (Neg-Trace) mg/dL Urine Glucose (UA) Normal (Normal) mg/dL Urine Ketones Negative (Negative) mg/dL Urine Blood Moderate H (Negative) Urine Nitrite Negative (Negative) Urine Bilirubin Negative (Negative) Urine Urobilinogen Normal (Normal) mg/dL Ur Leukocyte Esterase Large H (Negative) Urine Microscopic RBC 3-5 H (0-3) per hpf Urine Microscopic WBC TNTC H (0-3) per hpf Ur Squamous Epith Cells Many H (None-Few) per lpf Urine Bacteria Many H (None-Few) per hpf Hyaline Casts None Seen (None-Few) per lpf Urine Yeast Many H (None Seen) per hpf Ur Culture Indicated? YES A (NO) Exam - Constitutional Vitals: Temp Pulse Resp BP Pulse Ox 97.5 F L 90 18 105/73 94 12/16/16 11:45 12/16/16 11:45 12/16/16 11:45 12/16/16 11:45 12/16/16 11:45 General appearance: cooperative, no acute distress, obese - Head Head exam: Present: atraumatic, normal inspection, normocephalic - Eye Eye exam: Present: EOMI, normal appearance, PERRL Pupils: Present: normal accommodation - ENT ENT exam: Present: mucous membranes moist - Neck Neck exam: Present: normal inspection - Respiratory Respiratory exam: Present: CTAB. Absent: rales, respiratory distress, rhonchi, wheezes - Cardiovascular Cardiovascular exam: Present: irregular rhythm. Absent: tachycardia - GI/Abdominal GI/Abdominal exam: Present: distended (obese), normal bowel sounds, soft. Absent: tenderness Additional comments: Lama catheter noted to be draining cloudy, yellow urine. - Extremities Exam Additional comments: Right BKA stump with dressing C/D/I. - Neurological Exam Neurological exam: Present: alert, no focal deficits. Absent: oriented X3 ( Oriented to person only.) - Skin Skin exam: Present: diaphoretic, intact, normal color, warm - VTE Documentation of Mechanical Device: Intermittent pneumatic compression device Consult Discharge Plan - Plan Referrals: Carlitos aKt MD [Partnered Physician] - 01/20/17 11:00 am NONE,PCP [Primary Care Provider] - Marcella Singer SYSTEMS PLANNER [Advanced Practice Nurse] - (PATIENT IS GOING TO [facility], NO PCP APPOINTMENT NEEDED) Prescriptions: Diltiazem CD (24hr) [Cardizem CD] 120 mg PO DAILY #30 cap.er.24h OxyCODONE/APAP 5/325 [Percocet 5/325 MG] 1 each PO Q6H PRN #15 tab PRN Reason: Moderate Pain - Attending Attestation I examined this patient and my medical decision-making was reviewed with the Resident Physician. I agree with the documented findings, disposition and treatment plan as described except to the extent set forth below.
[2016-12-16] MEDS: *HR* Rivaroxaban 10 MG TABLET PO SCH (17:03)
--- NOTE | 2016-12-16 18:06 | Physician Discharge Referral ---
ExtendedCare Referral Info Transfer To: ECF Provider in Charge after Transfer: PCP Institutional Level of Care: Skilled - Diagnosis (1) Sepsis Status: Acute (2) Acute osteomyelitis of right calcaneus Status: Acute (3) Acute delirium Status: Resolved (4) Atrial fibrillation Status: Acute (5) RANCHO (acute kidney injury) Status: Resolved (6) Peripheral arterial disease Status: Acute (7) Diabetes mellitus Status: Chronic (8) H/O deep venous thrombosis Status: Resolved (9) Tobacco abuse Status: Chronic (10) HTN (hypertension) Status: Acute - Transfer Medications Prescriptions: Diltiazem CD (24hr) [Cardizem CD] 120 mg PO DAILY #30 cap.er.24h OxyCODONE/APAP 5/325 [Percocet 5/325 MG] 1 each PO Q6H PRN #15 tab PRN Reason: Moderate Pain Home Medications: Sertraline [Zoloft] 100 mg PO DAILY 07/18/15 [History] Mirtazapine [Remeron] 30 mg PO HS 06/17/16 [History] Rivaroxaban [Xarelto] 15 mg PO 1700 tablet 11/11/16 [Rx] Atorvastatin [Lipitor] 10 mg PO DAILY 12/12/16 [History] Cholecalciferol (D-3) [Vitamin D] 1,000 unit PO DAILY 12/12/16 [History] Clopidogrel [Plavix] 75 mg PO DAILY 12/12/16 [History] Furosemide [Lasix] 40 mg PO 08,14 12/12/16 [History] Gabapentin [Neurontin] 600 mg PO QID 12/12/16 [History] Insulin Glargine,Hum.rec.anlog [Basaglar Kwikpen U-100] 15 unit SQ BID 12/12/16 [History] Insulin LISPRO [HumaLOG] 2 - 8 units SQ AD PRN 12/12/16 [History] Insulin LISPRO [HumaLOG] 8 units SQ TIDWM 12/12/16 [History] Loratadine [Allergy Relief] 10 mg PO DAILY 12/12/16 [History] Metoprolol [Lopressor] 100 mg PO BID 12/12/16 [History] Multivitamin,Stress Formula [Stress Formula] 1 tab PO DAILY 12/12/16 [History] [place]-3/Dha/Epa/Fish Oil [Fish Oil 1,000 mg Softgel] 1 each PO DAILY 12/12/16 [ History] Potassium Chloride [K-Tab ER] 20 meq PO BID 12/12/16 [History] amLODIPine [Norvasc] 5 mg PO DAILY 12/12/16 [History] Diltiazem CD (24hr) [Cardizem CD] 120 mg PO DAILY #30 cap.er.24h 12/16/16 [Rx] OxyCODONE/APAP 5/325 [Percocet 5/325 MG] 1 each PO Q6H PRN #15 tab 12/16/16 [Rx] Allergies/Adverse Reactions: Allergies codeine Allergy (Verified 12/12/16 08:39) See Comments Unknown reaction. Paroxetine [From Paxil] Allergy (Verified 12/12/16 08:39) See Comments Unknown reaction. Penicillins Allergy (Verified 12/12/16 08:39) See Comments Unknown reaction. - Respiratory Orders Smoking Cessation: Smoking cessation has been advised. For more information, call the [place] Tobacco Quit Line at 3-035-JJQR-NOW. CERTIFICATION: I certify that the transfer of the above named patient to an Extended Care Facility is necessary for the continuing treatment of the diagnosis listed. The above information is true and accurate reflection of patient's current condition. Confidential - Redisclosure prohibited without a patient's written consent.
[2016-12-16 18:52] VITALS: BP 112/74
[2016-12-16] MEDS ORDERED: Aminoglycoside Consult 1 EACH MC ONE (19:04)
== END 2016-12-16 19:05 | DRG 853 ==
LOC: 3NENU → 2NNU 20:47
PROVIDERS: ADMIT Internal Medicine; ATTEND Family Medicine

== ENCOUNTER 2017-02-03 12:20 | Inpatient (IN) ==
[2017-02-03] MEDS ORDERED: Dextrose Gel 15 GM PO PRN ×2 (15:20)
[2017-02-03] MEDS ORDERED: Ondansetron 4 MG/2 ML VIAL IVP PRN (15:20)
[2017-02-03] MEDS ORDERED: *HR* Dextrose 50 % in Water (Syg) 50 ML SYRINGE IVP PRN (15:20)
[2017-02-03] MEDS ORDERED: Naloxone 0.4 MG/ML INJ IVP PRN (15:20)
[2017-02-03] MEDS ORDERED: D5% in Water 1,000 ML IVC PRN (15:20)
[2017-02-03] MEDS ORDERED: Acetaminophen 325 MG TABLET PO PRN (15:20)
[2017-02-03] MEDS ORDERED: *HR* OxyCODONE/APAP 5/325 TABLET PO PRN (15:39)
--- NOTE | 2017-02-03 15:45 | Pulmonology History & Physical ---
<Carmelo Horvath - Last Filed: 02/03/17 17:14> Date of Encounter: 02/03/17 Time of Encounter: 15:43 Assessment and Plan (1) Acute exacerbation of chronic obstructive pulmonary disease (COPD) Current visit: Yes Status: Acute Patient arrived to ED on BiPAP 60%FiO2 oxygen saturation 92-97%. Continue BiPAP Repeat ABG @ 16:00. - Prior echo shows left atrial enlargement concern for diastolic failure resulting in pulmonary edema causing the exacerbation. If patient becomes hypotensive or her condition worsens. We will add broader coverage. - Lasix 20 IV given - Levaquin given 500mg Dose IV - Solumedrol given - PRN duonebs q4h - PRN albuterol nebulizer - CXR (-), OSH pH 7.25, CO2 58 (2) UTI (urinary tract infection) with pyuria Current visit: No Status: Acute UA at OSH + nitrites and leukocyte esterase - Given 2g rocephin at OSH - Levaquin initated yesterday, given 500mg IV today (3) Atrial fibrillation Current visit: No Status: Acute - Rate controlled with metoprolol 50mg BID daily Qualifiers: Atrial fibrillation type: chronic Qualified Code(s): I48.2 - Chronic atrial fibrillation (4) Diabetes mellitus Current visit: No Status: Chronic SubQ insulin Sliding Scale Qualifiers: Diabetes mellitus type: type 2 Diabetes mellitus complication status: with skin complications Diabetes mellitus complication detail: with foot ulcer Diabetes mellitus custodial insulin use: with custodial use Qualified Code(s) : E11.621 - Type 2 diabetes mellitus with foot ulcer; L97.509 - Non-pressure chronic ulcer of other part of unspecified foot with unspecified severity; Z79.4 - senior care (current) use of insulin (5) HTN (hypertension) Current visit: No Status: Acute - amlodipine 5mg daily Qualifiers: Hypertension type: essential hypertension Qualified Code(s): I10 - Essential (primary) hypertension (6) Complete below knee amputation of right lower extremity Current visit: Yes Status: Acute - Pain control: oxycodone/APAP 5-325mg Tablet Q6h pain (7) DVT prophylaxis Current visit: No Status: Acute History of Present Illness Chief complaint: Fever, AMS, UTI HPI: Ms. Rascon is a 61 year old female PMHx of COPD, atrial fib rate controlled, CAD, DMT2, DVT, PE, HTN, high cholesterol, presents from [facility] for Fever, AMS, and UTI. Patient arrived on BiPAP at 60%FiO2 oxygen saturation 92-97%. Patient presented to the ED from [facility] from which she has been recovering from a right below the knee amputation in December for fever and AMS. Patient was oriented x1. Patient was found by the ED physician to be in respiratory acidosis with COPD exacerbation and fever with UA positive for UTI. Required ICU for her AMS. Prior to transfer patient received 2L fluid, tylenol, duonebs, solumedrol, Bipap, Levaquin, and rocephin 2g. Patient is on 2L NC at home. Patient states she has a cough with increased sputum production that started today. Denies any pain at this time. States she is unsure why she was sent to hospital today. C/o dysuria as well. Past Med Surg Social Fam HX - Past Medical History Medical history: arthritis, atrial fibrillation, coronary artery disease, DVT, diabetes, hyperlipidemia, hypertension, pulmonary embolus, renal disease, other Psychiatric history: anxiety, depression - Past Surgical History Surgical History: other (Left foot TMA secondary to infection) - Social History Smoking Status: Current every day smoker Smokeless Tobacco Status: No Alcohol use: none Drug use: none - Family History Mother Family Member Ethnicity: Non- Twin of Family Member: Yes, Identical Living Status: Hx Family Cardiac Disorders: Yes Hx Family Respiratory Disorders: No Hx Family Cancer: Yes (aunt) Hx Family GI Disorders: Yes Hx Family Endocrine Disorder: Yes Hx Family Neurologic Disorders: Yes Hx Family HEENT Disorders: No Hx Family Autoimmune Disorders: No Father Living Status: Hx Family Cardiac Disorders: Yes Hx Family Endocrine Disorder: Yes (diabetes) Brother Hx Family Endocrine Disorder: Yes (diabetes) Medications and Allergies Sertraline [Zoloft] 100 mg PO DAILY 07/18/15 [History] Mirtazapine [Remeron] 30 mg PO HS 06/17/16 [History] Rivaroxaban [Xarelto] 15 mg PO 1700 tablet 11/11/16 [Rx] Atorvastatin [Lipitor] 10 mg PO DAILY 12/12/16 [History] Cholecalciferol (D-3) [Vitamin D] 1,000 unit PO DAILY 12/12/16 [History] Clopidogrel [Plavix] 75 mg PO DAILY 12/12/16 [History] Furosemide [Lasix] 40 mg PO 0800,1400 12/12/16 [History] Gabapentin [Neurontin] 600 mg PO QID 12/12/16 [History] Insulin Glargine,Hum.rec.anlog [Basaglar Kwikpen U-100] 15 unit SQ BID 12/12/16 [History] Insulin LISPRO [HumaLOG] 2 - 8 units SQ ACHS 12/12/16 [History] Insulin LISPRO [HumaLOG] 8 units SQ TIDWM 12/12/16 [History] Loratadine [Allergy Relief] 10 mg PO DAILY 12/12/16 [History] Metoprolol [Lopressor] 100 mg PO BID 12/12/16 [History] Multivitamin,Stress Formula [Stress Formula] 1 tab PO DAILY 12/12/16 [History] Magnolia-3/Dha/Epa/Fish Oil [Fish Oil 1,000 mg Softgel] 2 each PO DAILY 12/12/16 [ History] Potassium Chloride [K-Tab ER] 20 meq PO BID 12/12/16 [History] amLODIPine [Norvasc] 5 mg PO DAILY 12/12/16 [History] Diltiazem CD (24hr) [Cardizem CD] 120 mg PO DAILY #30 cap.er.24h 12/16/16 [Rx] OxyCODONE/APAP 5/325 [Percocet 5/325 MG] 1 each PO Q6H PRN #15 tab 12/16/16 [Rx] Acetaminophen [Tylenol] 1,000 mg PO Q6H PRN 02/03/17 [History] Albuterol Sulfate [Ventolin Hfa] 2 puff IH Q6H PRN 02/03/17 [History] Oxygen 2 l NS AD 02/03/17 [History] Sennosides/Docusate Sodium [Senna Plus] 1 each PO BID PRN 02/03/17 [History] Silver Sulfadiazine Cream [Silvadene] 1 appl TP DAILY 02/03/17 [History] 3 Allergy/AdvReac Type Severity Reaction Status Date / Time codeine Allergy See Verified 12/12/16 08:39 Comments Paroxetine [From Paxil] Allergy See Verified 12/12/16 08:39 Comments Penicillins Allergy See Verified 12/12/16 08:39 Comments All Systems: A 10-system review of systems was performed and is negative for pertinent findings except as documented above in the HPI. - Constitutional Constitutional: fever(s), no chills, no headache(s) - EENT Eyes: as per HPI Ears: as per HPI Nose, mouth and throat: as per HPI - Cardiovascular Cardiovascular: no chest pain, no lightheadedness - Respiratory Respiratory: dyspnea, no cough - Gastrointestinal Gastrointestinal: no abdominal pain, no nausea, no vomiting - Genitourinary Genitourinary: dysuria, no flank pain - Musculoskeletal Musculoskeletal: as per HPI, no joint pain, no joint swelling - Integumentary Integumentary: no erythema, no rash - Psychiatric Psychiatric: as per HPI - Endocrine Endocrine: as per HPI - Hematologic/Lymphatic Hematologic/Lymphatic: as per HPI Physical Examination Vital Signs: Vital Signs, Last 4 Hours Temp Pulse Resp BP Pulse Ox 02/03/17 15:02 97.6 F 82 19 127/98 97 02/03/17 14:57 18 124/79 94 General appearance: no acute distress, alert, other (AOx3 on exam) Eyes: nonicteric ENT: oropharynx moist Neck: supple, no lymphadenopathy Effort: normal Inspection: normal Auscultation: bilateral: wheezes (mild expiratory wheeze) Cardiovascular: irregular rhythm (irregular rhthym in the 90's) Gastrointestinal: normoactive bowel sounds Integumentary: normal, other (No rash present. ) Extremities: no cyanosis, edema (2+ bilaterally) Musculoskeletal: ROM normal, other (Patient has below the knee amputation on right leg with dressing changed today. LLE has amputation of foot below the ankle. ) normal mental status, non-focal exam, pupils equal and round mood appropriate, affect normal Patient is sitting up in bed. BiPAP is off. Patient speaks in full sentences and in no acute distress. Results - Laboratory Findings Abnormal lab findings: Abnormal lab results POC Glucose 251 (58-89) H 02/03/17 14:35 <Georgia Mohan S - Last Filed: 02/03/17 19:22> Date of Encounter: 02/03/17 History of Present Illness HPI: Ms. Rascon is a 61 year old female All Systems: A 10-system review of systems was performed and is negative for pertinent findings except as documented above in the HPI. Physical Examination Vital Signs: Vital Signs, Last 4 Hours Pulse Resp BP Pulse Ox 02/03/17 18:16 93 20 130/83 92 02/03/17 17:26 85 12 143/95 92 02/03/17 16:33 87 18 133/95 90 Results - Laboratory Findings Abnormal lab findings: Abnormal lab results POC Glucose 251 (58-89) H 02/03/17 14:35 - Attending Attestation I saw the patient with the resident agree with History and Physical exam findings. Labs and Radiology were reviewed Ventilator data were reviewed SCHOOL EXAMINER: Patient is conscious oriented x3 following commands NECK : No JVD appreciated Pulmonary : Patient is hypoxic and hypercarbic on BIPAP slowly improving COPD exacerbation Vs Diastolic heart failure . Gases improving adjusted BIPAP 23/10 . UTI tipped her into diastolic heart failure doubt it is COPD will do a steroid burst . Cardiac : Hemodynamically stable , diuresis Nutrition/GI: Patient is NPO PPI prophylaxis Renal : Lab reviewed and UOP reviewed Heme onc : No acute issues ID : UTI on Levofloxacin Endo: Diabetes on insulin Disposition : Critical Code status: Full Code Spent Critical care 33 minutes .
[2017-02-03] MEDS ORDERED: Insulin LISPRO 300 UNITS/3 ML VIAL SQ SCH ×2 (16:30→21:00)
[2017-02-03] MEDS: Gabapentin 300 MG CAPSULE PO SCH ×2 (16:42→20:49)
[2017-02-03] MEDS: MethylPREDNISolone 40 MG/ML VIAL IVP SCH ×2 (16:42→23:14)
[2017-02-03] MEDS ORDERED: *HR* Rivaroxaban 15 MG TABLET PO SCH (17:00)
[2017-02-03] MEDS ORDERED: Albuterol 2.5 MG/3 ML NEBULIZER IH PRN (17:01)
[2017-02-03] MEDS: Metoprolol 100 MG TABLET PO SCH (20:49)
[2017-02-03] MEDS: Famotidine 20 MG TABLET PO SCH (20:49)
[2017-02-03] MEDS ORDERED: Mirtazapine 15 MG TABLET PO SCH (21:00)
[2017-02-04 06:01] LABS: Basophils % 0.2 %; Hematocrit 39.8 % (35.3-44.9); Hemoglobin 11.7 g/dL (11.5-15.4); Immature Granulocytes % 1.8 % (0-4); Lymphocytes # 0.6 K/mcL (0.6-4.6); Lymphocytes % 12.3 %; Mean Corpuscular HGB Conc 29.4 g/dL (31.6-35.5); Mean Corpuscular Hemoglobin 26.2 pg (28.0-33.3); Mean Corpuscular Volume 89.2 fL (83.0-100.0); Monocytes # 0.2 K/mcL (0.0-1.3); Monocytes % 4.6 %; Neutrophils # 4.1 K/mcL (1.6-8.9); Platelet Count 154 K/mcL (140-400); Red Blood Count 4.46 M/mcL (3.82-4.97); Red Cell Distribution Width 16.7 % (11.5-14.5); Segmented Neutrophils % 81.1 %
[2017-02-04 06:14] LABS: BUN/Creatinine Ratio 26 (6-26); Blood Urea Nitrogen 28 mg/dL (7-20); Carbon Dioxide 23 mEq/L (19-29); Chloride 108 mEq/L (98-109); Glucose 361 mg/dL (70-99); Osmolality,Calculated 312 (280-300); Potassium 4.8 mEq/L (3.5-4.5); Sodium 141 mEq/L (136-145); eGFR For African Americans > 60 (> 60); eGFR For Non-African Americans 52 (> 60)
[2017-02-04] MEDS ORDERED: D5% in Water 1,000 ML IVC PRN ×2 (08:24→15:21)
[2017-02-04] MEDS ORDERED: predniSONE 20 MG TABLET PO SCH ×2 (09:00)
[2017-02-04] MEDS ORDERED: amLODIPine 5 MG TABLET PO SCH (09:00)
[2017-02-04] MEDS ORDERED: Loratadine 10 MG TABLET PO SCH (09:00)
[2017-02-04] MEDS ORDERED: Diltiazem CD (24hr) 120 MG CAPSULE PO SCH (09:00)
[2017-02-04] MEDS ORDERED: Cholecalciferol (D-3) 1,000 UNIT TABLET PO SCH (09:00)
[2017-02-04] MEDS: Famotidine 20 MG TABLET PO SCH ×2 (09:10→20:47)
[2017-02-04] MEDS: Gabapentin 300 MG CAPSULE PO SCH ×2 (09:10→20:46)
[2017-02-04] MEDS: Metoprolol 100 MG TABLET PO SCH ×2 (09:10→20:47)
[2017-02-04] MEDS ORDERED: Budesonide/Formoterol 80/4.5 MDI IH SCH (10:00)
[2017-02-04] MEDS: Ipratropium/Albuterol Neb 3 ML IH SCH ×3 (10:49→23:21)
[2017-02-04] MEDS ORDERED: Levofloxacin 500 MG/100 ML 500 MG/100 ML BAG IVPB SCH (11:00)
[2017-02-04] MEDS ORDERED: Insulin LISPRO 300 UNITS/3 ML VIAL SQ SCH ×3 (11:30→21:00)
--- NOTE | 2017-02-04 13:34 | Pulmonology Progress Note ---
<Carmelo Horvath - Last Filed: 02/04/17 13:49> Date of Encounter: 02/04/17 Time of Encounter: 08:00 Assessment and Plan (1) Acute exacerbation of chronic obstructive pulmonary disease (COPD) Current Visit: Yes Status: Acute Oxygen Sat 95% on 2LNC - Prior echo shows left atrial enlargement concern for diastolic failure resulting in pulmonary edema causing the exacerbation. If patient becomes hypotensive or her condition worsens. We will add broader coverage. - Levaquin given 500mg Dose IV - Solumedrol stopped. Patient started on Prednisone 40mg once daily PO. Continue and taper over course of 14 days. - Scheduled duonebs q8h - PRN albuterol nebulizer (2) UTI (urinary tract infection) with pyuria Current Visit: No Status: Inactive UA at OSH + nitrites and leukocyte esterase - 2nd day of Levoquin 500mg IV (3) Atrial fibrillation Current Visit: No Status: Acute - Rate controlled with metoprolol 50mg BID daily Qualifiers: Atrial fibrillation type: chronic Qualified Code(s): I48.2 - Chronic atrial fibrillation (4) Diabetes mellitus Current Visit: No Status: Chronic SubQ insulin Patient glucose in the upper 300's today. Will switch her to sliding Scale high dose Patient on insulin at home, will add Levemir 15 units BID. Qualifiers: Diabetes mellitus type: type 2 Diabetes mellitus complication status: with skin complications Diabetes mellitus complication detail: with foot ulcer Diabetes mellitus termite control servicer insulin use: with termite control servicer use Qualified Code(s) : E11.621 - Type 2 diabetes mellitus with foot ulcer; L97.509 - Non-pressure chronic ulcer of other part of unspecified foot with unspecified severity; Z79.4 - lobsterman (current) use of insulin (5) HTN (hypertension) Current Visit: No Status: Acute - amlodipine 5mg daily Qualifiers: Hypertension type: essential hypertension Qualified Code(s): I10 - Essential (primary) hypertension (6) Complete below knee amputation of right lower extremity Current Visit: Yes Status: Acute - Pain control: oxycodone/APAP 5-325mg Tablet Q6h pain (7) DVT prophylaxis Current Visit: No Status: Acute (8) Neuropathy Current Visit: Yes Status: Acute Discussed with pharmacist. Patient current dose of gabapentin 600mg TID may be contributing to dementia. Will decrease to BID. Subjective Principal diagnosis: exacerbation of COPD/UTI Interval history: Patient is doing well today. No events overnight. Patient AOx3. Speaks in full sentences. Objective PUL Vital signs: Last Vital Signs Temp 97.9 F 02/04/17 11:59 Pulse 87 02/04/17 12:00 Resp 14 02/04/17 12:00 BP 135/77 02/04/17 12:00 Pulse Ox 96 02/04/17 12:00 General appearance: no acute distress, alert Eyes: nonicteric ENT: oropharynx moist Neck: supple Effort: normal Auscultation: bilateral: wheezes (mild expiratory wheeze) Percussion: bilateral: not dull Cardiovascular: regular rate and rhythm Gastrointestinal: normoactive bowel sounds, non-distended Integumentary: normal Extremities: no cyanosis Musculoskeletal: other (BKA of right leg. Amputation of toes on left foot.) normal mental status, non-focal exam mood appropriate, affect normal Results - Laboratory Findings CBC and BMP: 02/04/17 05:39 02/04/17 05:39 Abnormal lab findings: Abnormal lab results MCH 26.2 pg (28.0-33.3) L 02/04/17 05:39 MCHC 29.4 g/dL (31.6-35.5) L 02/04/17 05:39 RDW 16.7 % (11.5-14.5) H 02/04/17 05:39 Potassium 4.8 mEq/L (3.5-4.5) H 02/04/17 05:39 BUN 28 mg/dL (7-20) H 02/04/17 05:39 Est GFR (Non-Af Amer) 52 (> 60) L 02/04/17 05:39 Glucose 361 mg/dL (70-99) H 02/04/17 05:39 POC Glucose 311 (58-89) H 02/04/17 11:29 Calculated Osmolality 312 (280-300) H 02/04/17 05:39 - Clinical Findings Intake & Output: Intake & Output 02/03/17 02/04/17 02/04/17 23:59 07:59 15:59 Intake Total 0 / 0 510 / 510 Output Total 350 / 350 Balance -350 / -350 0 / 0 510 / 510 Weight 92.8 kg 91.9 kg Consult Discharge Plan - Plan Referrals: Kamla Licona MD [Primary Care Provider] - <Georgia Mohan - Last Filed: 02/04/17 19:42> Date of Encounter: 02/04/17 Objective PUL Vital signs: Last Vital Signs Temp 97.9 F 02/04/17 11:59 Pulse 87 02/04/17 12:00 Resp 22 02/04/17 15:55 BP 135/77 02/04/17 12:00 Pulse Ox 96 02/04/17 15:55 Results - Laboratory Findings CBC and BMP: 02/04/17 05:39 02/04/17 05:39 Abnormal lab findings: Abnormal lab results MCH 26.2 pg (28.0-33.3) L 02/04/17 05:39 MCHC 29.4 g/dL (31.6-35.5) L 02/04/17 05:39 RDW 16.7 % (11.5-14.5) H 02/04/17 05:39 Potassium 4.8 mEq/L (3.5-4.5) H 02/04/17 05:39 BUN 28 mg/dL (7-20) H 02/04/17 05:39 Est GFR (Non-Af Amer) 52 (> 60) L 02/04/17 05:39 Glucose 361 mg/dL (70-99) H 02/04/17 05:39 POC Glucose 311 (58-89) H 02/04/17 11:29 Calculated Osmolality 312 (280-300) H 02/04/17 05:39 - Clinical Findings Intake & Output: Intake & Output 02/04/17 02/04/17 02/04/17 07:59 15:59 23:59 Intake Total 0 / 0 510 / 510 Output Total 100 / 100 200 / 200 Balance 0 / 0 410 / 410 -200 / -200 Weight 92.8 kg 91.9 kg - Attending Attestation I saw the patient with the resident agree with History and Physical exam findings. Labs and Radiology were reviewed Patient is off BIPAP doing well on Nasal cannula CORD MAKER: Patient is conscious oriented x3 following commands NECK : No JVD appreciated Pulmonary :With the acuity of symptoms it looks like more of diastolic dysfunction due to underlying UTI that has worsened his diastolic heart failure which tipped possible COPD exacerbation will do 5 day short course of steroids and stop Cardiac : Hemodynamically stable , diuresis Nutrition/GI: Patient is eating and drinking Renal : Lab reviewed and UOP reviewed Heme onc : No acute issues ID : UTI on Levofloxacin Endo: Diabetes on insulin Disposition : Stable to go to the floor . Code status: Full Code
[2017-02-04] MEDS ORDERED: Acetaminophen 325 MG TABLET PO PRN (15:21)
[2017-02-04] MEDS ORDERED: Dextrose Gel 15 GM PO PRN ×2 (15:21)
[2017-02-04] MEDS ORDERED: Albuterol 2.5 MG/3 ML NEBULIZER IH PRN (15:21)
[2017-02-04] MEDS ORDERED: *HR* Dextrose 50 % in Water (Syg) 50 ML SYRINGE IVP PRN (15:21)
[2017-02-04] MEDS ORDERED: Naloxone 0.4 MG/ML INJ IVP PRN (15:21)
[2017-02-04] MEDS ORDERED: Ondansetron 4 MG/2 ML VIAL IVP PRN (15:21)
[2017-02-04] MEDS: Insulin LISPRO 300 UNITS/3 ML VIAL SQ SCH ×2 (18:38→20:49)
[2017-02-04] MEDS: *HR* Rivaroxaban 15 MG TABLET PO SCH (18:39)
[2017-02-04] MEDS: Mirtazapine 15 MG TABLET PO SCH (20:47)
[2017-02-04] MEDS: *HR* OxyCODONE/APAP 5/325 TABLET PO PRN (20:47)
[2017-02-04] MEDS: Insulin DETEMIR 100 UNIT/ML X5UNITS SQ SCH ×4 (20:48→21:47)
[2017-02-04] MEDS: Budesonide/Formoterol 80/4.5 MDI IH SCH (23:21)
[2017-02-05] MEDS: *HR* OxyCODONE/APAP 5/325 TABLET PO PRN (05:37)
[2017-02-05] MEDS: Diltiazem CD (24hr) 120 MG CAPSULE PO SCH (08:09)
[2017-02-05] MEDS: Metoprolol 100 MG TABLET PO SCH ×2 (08:09→21:32)
[2017-02-05] MEDS: predniSONE 20 MG TABLET PO SCH (08:09)
[2017-02-05] MEDS: Cholecalciferol (D-3) 1,000 UNIT TABLET PO SCH (08:09)
[2017-02-05] MEDS: Loratadine 10 MG TABLET PO SCH (08:09)
[2017-02-05] MEDS: Gabapentin 300 MG CAPSULE PO SCH ×3 (08:10→21:32)
[2017-02-05] MEDS: Famotidine 20 MG TABLET PO SCH ×2 (08:10→21:32)
[2017-02-05] MEDS: amLODIPine 5 MG TABLET PO SCH (08:10)
[2017-02-05] MEDS: Budesonide/Formoterol 80/4.5 MDI IH SCH ×2 (08:13→22:51)
[2017-02-05] MEDS: Ipratropium/Albuterol Neb 3 ML IH SCH ×3 (08:13→22:51)
[2017-02-05] MEDS: Insulin LISPRO 300 UNITS/3 ML VIAL SQ SCH ×4 (08:20→21:39)
[2017-02-05] MEDS: Insulin DETEMIR 100 UNIT/ML X5UNITS SQ SCH ×2 (08:20→21:33)
[2017-02-05] MEDS: Levofloxacin 500 MG/100 ML 500 MG/100 ML BAG IVPB SCH (11:16)
--- NOTE | 2017-02-05 15:03 | Internal Med Progress Note ---
Date of Encounter: 02/05/17 Time of Encounter: 12:00 - Assessment and plan (1) Acute exacerbation of chronic obstructive pulmonary disease (COPD) Current Visit: Yes Status: Acute Assessment and plan: -Patient reports of decreased productive cough and no longer in any respiratory distress. -Patient has been switched from IV Solu-Medrol to oral prednisone. -Will continue IV Levaquin. (2) Acute and chronic respiratory failure with hypoxia Current Visit: Yes Status: Resolved Assessment and plan: -Suspect secondary to COPD exacerbation. -Patient no longer requiring an NIPPV but is on supplemental oxygen close to her baseline. -Continue to monitor. (3) Acute cystitis Current Visit: Yes Status: Acute Assessment and plan: -We will continue IV Levaquin for positive outpatient urinalysis. Qualifiers: Hematuria presence: without hematuria Qualified Code(s): N30.00 - Acute cystitis without hematuria (4) Diabetes mellitus Current Visit: No Status: Chronic Assessment and plan: -Relatively controlled given the fact that patient is on steroids for treatment of COPD exacerbation above -Continue home insulin and monitoring blood glucose levels. Qualifiers: Diabetes mellitus type: type 2 Diabetes mellitus complication status: with skin complications Diabetes mellitus complication detail: with foot ulcer Diabetes mellitus cashier general insulin use: with cashier general use Qualified Code(s) : E11.621 - Type 2 diabetes mellitus with foot ulcer; L97.509 - Non-pressure chronic ulcer of other part of unspecified foot with unspecified severity; Z79.4 - leadership development manager (current) use of insulin (5) Atrial fibrillation Current Visit: No Status: Acute Assessment and plan: -Rate is controlled. -Continue beta kiana and anticoagulation with Xarelto Qualifiers: Atrial fibrillation type: chronic Qualified Code(s): I48.2 - Chronic atrial fibrillation (6) HTN (hypertension) Current Visit: No Status: Acute Assessment and plan: -Controlled, continue beta kiana. Qualifiers: Hypertension type: essential hypertension Qualified Code(s): I10 - Essential (primary) hypertension (7) DVT prophylaxis Current Visit: No Status: Acute Assessment and plan: -Continue Xarelto as above - Subjective Interval history: She reports of feeling much better today and states that she has decreased cough. She also notes that her breathing is better. - Constitutional Vitals: Temp Pulse Resp BP Pulse Ox 97.6 F 79 15 116/66 98 02/05/17 11:26 02/05/17 11:26 02/05/17 11:26 02/05/17 11:02/05/17 11:26 General appearance: Present: cooperative, A&O X 3, no acute distress, answers questions appropriately - Respiratory Respiratory exam: Present: CTAB. Absent: accessory muscle use, rales, rhonchi, wheezes - Cardiovascular Cardiovascular exam: Present: RRR, +S1, +S2. Absent: diastolic murmur, gallop, rubs, systolic murmur Internal Medicine: Result - Labs CBC & Chem 7: 02/04/17 05:39 02/04/17 05:39 Consult Discharge Plan - Plan Referrals: Kamla Licona MD [Primary Care Provider] -
[2017-02-05] MEDS: *HR* Rivaroxaban 15 MG TABLET PO SCH (16:26)
[2017-02-05] MEDS: Mirtazapine 15 MG TABLET PO SCH (21:33)
[2017-02-06] MEDS: Insulin LISPRO 300 UNITS/3 ML VIAL SQ SCH ×2 (07:52→12:28)
[2017-02-06] MEDS: Ipratropium/Albuterol Neb 3 ML IH SCH ×2 (07:58→15:59)
[2017-02-06] MEDS: Budesonide/Formoterol 80/4.5 MDI IH SCH (07:58)
[2017-02-06] MEDS: Gabapentin 300 MG CAPSULE PO SCH (09:18)
[2017-02-06] MEDS: Metoprolol 100 MG TABLET PO SCH (09:18)
[2017-02-06] MEDS: Cholecalciferol (D-3) 1,000 UNIT TABLET PO SCH (09:18)
[2017-02-06] MEDS: amLODIPine 5 MG TABLET PO SCH (09:18)
[2017-02-06] MEDS: Famotidine 20 MG TABLET PO SCH (09:19)
[2017-02-06] MEDS: Insulin DETEMIR 100 UNIT/ML X5UNITS SQ SCH (09:19)
[2017-02-06] MEDS: Diltiazem CD (24hr) 120 MG CAPSULE PO SCH (09:19)
[2017-02-06] MEDS: predniSONE 20 MG TABLET PO SCH (09:19)
[2017-02-06] MEDS: Loratadine 10 MG TABLET PO SCH (09:19)
[2017-02-06 10:35] LABS: Basophils % 0.3 %; Eosinophils # 0.1 K/mcL (0.0-0.6); Eosinophils % 1.5 %; Hematocrit 39.1 % (35.3-44.9); Hemoglobin 11.6 g/dL (11.5-15.4); Immature Granulocytes % 0.8 % (0-4); Lymphocytes # 1.6 K/mcL (0.6-4.6); Lymphocytes % 23.9 %; Mean Corpuscular HGB Conc 29.7 g/dL (31.6-35.5); Mean Corpuscular Volume 91.1 fL (83.0-100.0); Mean Platelet Volume 11.4 fL (9.4-12.4); Monocytes # 0.5 K/mcL (0.0-1.3); Monocytes % 6.9 %; Neutrophils # 4.4 K/mcL (1.6-8.9); Platelet Count 160 K/mcL (140-400); Red Blood Count 4.29 M/mcL (3.82-4.97); Red Cell Distribution Width 16.9 % (11.5-14.5); Segmented Neutrophils % 66.6 %
[2017-02-06 10:44] LABS: BUN/Creatinine Ratio 30 (6-26); Blood Urea Nitrogen 27 mg/dL (7-20); Calcium 9.1 mg/dL (8.6-10.8); Carbon Dioxide 27 mEq/L (19-29); Chloride 111 mEq/L (98-109); Glucose 143 mg/dL (70-99); Osmolality,Calculated 312 (280-300); Potassium 3.9 mEq/L (3.5-4.5); Sodium 147 mEq/L (136-145); eGFR For African Americans > 60 (> 60); eGFR For Non-African Americans > 60 (> 60)
[2017-02-06 12:10] VITALS: BP 129/75
[2017-02-06] MEDS: Levofloxacin 500 MG/100 ML 500 MG/100 ML BAG IVPB SCH (12:48)
--- NOTE | 2017-02-06 16:22 | Discharge Summary ---
Date of Encounter: 02/06/17 Time of Encounter: 10:00 - Discharge Diagnosis (1) Acute exacerbation of chronic obstructive pulmonary disease (COPD) Priority: Primary Status: Acute (2) Acute and chronic respiratory failure with hypoxia Priority: Primary Status: Resolved (3) Acute cystitis Priority: Primary Status: Acute Qualifiers: Hematuria presence: without hematuria Qualified Code(s): N30.00 - Acute cystitis without hematuria (4) Diabetes mellitus Priority: Secondary Status: Chronic Qualifiers: Diabetes mellitus type: type 2 Diabetes mellitus complication status: with skin complications Diabetes mellitus complication detail: with foot ulcer Diabetes mellitus termite control servicer insulin use: with termite control servicer use Qualified Code(s) : E11.621 - Type 2 diabetes mellitus with foot ulcer; L97.509 - Non-pressure chronic ulcer of other part of unspecified foot with unspecified severity; Z79.4 - ferry terminal agent (current) use of insulin (5) Atrial fibrillation Priority: Secondary Status: Acute Qualifiers: Atrial fibrillation type: chronic Qualified Code(s): I48.2 - Chronic atrial fibrillation (6) HTN (hypertension) Priority: Secondary Status: Acute Qualifiers: Hypertension type: essential hypertension Qualified Code(s): I10 - Essential (primary) hypertension - Discharge Medications Prescriptions: levoFLOXacin [Levaquin] 500 mg PO DAILY #7 tablet Home Medications: Sertraline [Zoloft] 100 mg PO DAILY 07/18/15 [History] Mirtazapine [Remeron] 30 mg PO HS 06/17/16 [History] Rivaroxaban [Xarelto] 15 mg PO 1700 tablet 11/11/16 [Rx] Atorvastatin [Lipitor] 10 mg PO DAILY 12/12/16 [History] Cholecalciferol (D-3) [Vitamin D] 1,000 unit PO DAILY 12/12/16 [History] Clopidogrel [Plavix] 75 mg PO DAILY 12/12/16 [History] Furosemide [Lasix] 40 mg PO 0800,1400 12/12/16 [History] Gabapentin [Neurontin] 600 mg PO QID 12/12/16 [History] Insulin Glargine,Hum.rec.anlog [Basaglar Kwikpen U-100] 15 unit SQ BID 12/12/16 [History] Insulin LISPRO [HumaLOG] 2 - 8 units SQ ACHS 12/12/16 [History] Insulin LISPRO [HumaLOG] 8 units SQ TIDWM 12/12/16 [History] Loratadine [Allergy Relief] 10 mg PO DAILY 12/12/16 [History] Metoprolol [Lopressor] 100 mg PO BID 12/12/16 [History] Multivitamin,Stress Formula [Stress Formula] 1 tab PO DAILY 12/12/16 [History] [place]-3/Dha/Epa/Fish Oil [Fish Oil 1,000 mg Softgel] 2 each PO DAILY 12/12/16 [ History] Potassium Chloride [K-Tab ER] 20 meq PO BID 12/12/16 [History] amLODIPine [Norvasc] 5 mg PO DAILY 12/12/16 [History] Diltiazem CD (24hr) [Cardizem CD] 120 mg PO DAILY #30 cap.er.24h 12/16/16 [Rx] OxyCODONE/APAP 5/325 [Percocet 5/325 MG] 1 each PO Q6H PRN #15 tab 12/16/16 [Rx] Acetaminophen [Tylenol] 1,000 mg PO Q6H PRN 02/03/17 [History] Albuterol Sulfate [Ventolin Hfa] 2 puff IH Q6H PRN 02/03/17 [History] Oxygen 2 l NS AD 02/03/17 [History] Sennosides/Docusate Sodium [Senna Plus] 1 each PO BID PRN 02/03/17 [History] Silver Sulfadiazine Cream [Silvadene] 1 appl TP DAILY 02/03/17 [History] levoFLOXacin [Levaquin] 500 mg PO DAILY #7 tablet 02/06/17 [Rx] Allergies/Adverse Reactions: 3 Allergy/AdvReac Type Severity Reaction Status Date / Time codeine Allergy See Verified 12/12/16 08:39 Comments Paroxetine [From Paxil] Allergy See Verified 12/12/16 08:39 Comments Penicillins Allergy See Verified 12/12/16 08:39 Comments Procedures/tests Complete & Pending: Procedures Performed prior 72 hours Category Date Time Status ECG 12 lead ECG [ECG] Routine Y 02/05/17 21:43 Completed Date of admission: 02/03/17 14:53 Primary care physician: Kamla Licona - Patient Status Disposition: Transfer SNF Condition: Good - Discharge Instructions Follow Up With: Kamla Licona MD [Primary Care Provider] - Additional Instructions: Follow-up appointments: If there is not an appointment listed below, please call your physician and schedule a follow-up appointment. If you have congestive heart failure and your symptoms return, make an appointment with your physician. Medication List: Carry an up to date list of medications you are taking at all time. We have given you an updated medication list including any new medications that you have been prescribed. Please provide that list to your primary provider Symptoms: If your condition changes or you experience any of the following symptoms, notify your physician immediately: Unusual or worsening pain, fever, persistent nausea and vomiting, bleeding, increase in swelling (especially in your legs), sudden weight gain, extreme dizziness, chest pain, increased drainage or redness from a wound or incision. Go to the emergency department if you experience a problem with breathing. Weights: If you have a history of swelling or shortness of breath, weigh yourself daily and notify your physician if you have a weight gain of two or more pounds in one day or 5 or more pounds in a week. If you experience any of the warning signs for stroke: Sudden numbness or weakness of the face, arm or leg; especially on one side of the body, sudden confusion, trouble speaking or understanding, sudden trouble seeing in one or both eyes, sudden trouble walking, dizziness, loss of balance or coordination, sudden sever headache with no cause; Call 911 or go to the emergency room. Stroke is a medical emergency. Some risk factors for stroke: Age, cigarette smoking, diabetes, excessive alcohol consumption, family history , high blood pressure, overweight, physical inactivity, prior stroke, heart attack, diagnosis of carotid artery stenosis or other artery disease. If you smoke, STOP: Smoking or tobacco use significantly increases your risk of heart and lung disease. Your chance of disease greatly increases if you continue to smoke. For more information, call the [place] tobacco quit line for smoking cessation QUIT-NOW ( ) Hospital course: Patient is a 61 year old female with past medical history significant for COPD, atrial fib (rate controlled), CAD, DMT2, DVT, PE, HTN and high cholesterol, who presented from [facility] on 02/03/17 for Fever, AMS, and UTI. Patient presented to the ER from [facility] due to fever and AMS. Patient was found by the ER physician to be in respiratory acidosis with COPD exacerbation and fever with UA positive for UTI. Prior to transfer, patient received 2L fluid, tylenol, duonebs, solumedrol, Bipap, Levaquin, and rocephin 2g. Patient is on 2L NC at home. Patient arrived to [facility] ICU in acute on chronic hypoxic respiratory failure and was on BiPAP at 60%FiO2 oxygen saturation 92-97%. Patient stated she had a cough with increased sputum production. She complained of dysuria as well. During patients hospital stay, her respiratory status improved and she was able to be weaned off NIPPV and placed on her baseline supplemental oxygen requirements. In addition, antibiotics were de-escalated to IV Levaquin. Patient was transferred to the medical floor and continued to improve. Patient is now medically stable to be discharged back to care home facility and to continue a short course of oral Levaquin and prednisone. - Time Spent with Patient Total time spent providing and/or coordinating discharge services: Less than 30 minutes - Constitutional Vitals: Temp Pulse Resp BP Pulse Ox 98.1 F 82 15 129/75 92 02/06/17 12:09 02/06/17 12:09 02/06/17 12:09 02/06/17 12:09 02/06/17 12:09 General appearance: Present: cooperative, A&O X 3, no acute distress, answers questions appropriately - Respiratory Respiratory exam: Present: CTAB. Absent: accessory muscle use, rales, rhonchi, wheezes - Cardiovascular Cardiovascular exam: Present: RRR, +S1, +S2. Absent: diastolic murmur, gallop, rubs, systolic murmur
--- NOTE | 2017-02-06 17:09 | Physician Discharge Referral ---
ExtendedCare Referral Info Provider in Charge after Transfer: PCP Institutional Level of Care: Skilled - Diagnosis (1) Acute exacerbation of chronic obstructive pulmonary disease (COPD) Status: Acute (2) Acute and chronic respiratory failure with hypoxia Status: Resolved (3) Acute cystitis Status: Acute (4) Diabetes mellitus Status: Chronic (5) Atrial fibrillation Status: Acute (6) HTN (hypertension) Status: Acute - Transfer Medications Prescriptions: levoFLOXacin [Levaquin] 500 mg PO DAILY #7 tablet Home Medications: Sertraline [Zoloft] 100 mg PO DAILY 07/18/15 [History] Mirtazapine [Remeron] 30 mg PO HS 06/17/16 [History] Rivaroxaban [Xarelto] 15 mg PO 1700 tablet 11/11/16 [Rx] Atorvastatin [Lipitor] 10 mg PO DAILY 12/12/16 [History] Cholecalciferol (D-3) [Vitamin D] 1,000 unit PO DAILY 12/12/16 [History] Clopidogrel [Plavix] 75 mg PO DAILY 12/12/16 [History] Furosemide [Lasix] 40 mg PO 0800,1400 12/12/16 [History] Gabapentin [Neurontin] 600 mg PO QID 12/12/16 [History] Insulin Glargine,Hum.rec.anlog [Basaglar Kwikpen U-100] 15 unit SQ BID 12/12/16 [History] Insulin LISPRO [HumaLOG] 2 - 8 units SQ ACHS 12/12/16 [History] Insulin LISPRO [HumaLOG] 8 units SQ TIDWM 12/12/16 [History] Loratadine [Allergy Relief] 10 mg PO DAILY 12/12/16 [History] Metoprolol [Lopressor] 100 mg PO BID 12/12/16 [History] Multivitamin,Stress Formula [Stress Formula] 1 tab PO DAILY 12/12/16 [History] [place]-3/Dha/Epa/Fish Oil [Fish Oil 1,000 mg Softgel] 2 each PO DAILY 12/12/16 [ History] Potassium Chloride [K-Tab ER] 20 meq PO BID 12/12/16 [History] amLODIPine [Norvasc] 5 mg PO DAILY 12/12/16 [History] Diltiazem CD (24hr) [Cardizem CD] 120 mg PO DAILY #30 cap.er.24h 12/16/16 [Rx] OxyCODONE/APAP 5/325 [Percocet 5/325 MG] 1 each PO Q6H PRN #15 tab 12/16/16 [Rx] Acetaminophen [Tylenol] 1,000 mg PO Q6H PRN 02/03/17 [History] Albuterol Sulfate [Ventolin Hfa] 2 puff IH Q6H PRN 02/03/17 [History] Oxygen 2 l NS AD 02/03/17 [History] Sennosides/Docusate Sodium [Senna Plus] 1 each PO BID PRN 02/03/17 [History] Silver Sulfadiazine Cream [Silvadene] 1 appl TP DAILY 02/03/17 [History] levoFLOXacin [Levaquin] 500 mg PO DAILY #7 tablet 02/06/17 [Rx] Allergies/Adverse Reactions: 3 Allergy/AdvReac Type Severity Reaction Status Date / Time codeine Allergy See Verified 12/12/16 08:39 Comments Paroxetine [From Paxil] Allergy See Verified 12/12/16 08:39 Comments Penicillins Allergy See Verified 12/12/16 08:39 Comments - Respiratory Orders Smoking Cessation: Smoking cessation has been advised. For more information, call the [place] Tobacco Quit Line at 9-755-UFBMNOW. - Advance Directives Code Status: Full Code - Rehabiliation Orders Rehab Potential: Good CERTIFICATION: I certify that the transfer of the above named patient to an Extended Care Facility is necessary for the continuing treatment of the diagnosis listed. The above information is true and accurate reflection of patient's current condition. Confidential - Redisclosure prohibited without a patient's written consent.
--- NOTE | 2017-02-06 19:27 | Electrocardiograph Report ---
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
--- NOTE | 2017-02-06 19:44 | Electrocardiograph Report ---
[address] [place] [address] Test Date: 2017-02-05 Pat Name: Geovanna Rascon Department: 114 Room: [facility] Gender: F Manager Knowledge: [id number] : 1955 Requested By: Porter Daniels Order Number: [id number] Reading MD: Pedrito Sapp MD Measurements Intervals [place] Rate: 80 P: 39 MT: 226 QRS: 31 QRSD: 85 T: 30 QT: 341 QTc: 378 Interpretive Statements SINUS RHYTHM WITH MARKED SINUS ARRHYTHMIA WITH FIRST DEGREE AV BLOCK Electronically Signed On 02-06-2017 19:42:42 EDT by Pedrito Sapp MD
== END 2017-02-06 17:30 | DRG 190 ==
LOC: ICNU 14:53 → 3NENU 02-04 15:35
PROVIDERS: ADMIT Internal Medicine Pulmonary Disease; ATTEND Hospitalist

== ENCOUNTER 2018-11-30 20:38 | Inpatient (IN) ==
--- NOTE | 2018-12-01 00:16 | Internal Med History&Physical ---
Date of Encounter: 12/01/18 Time of Encounter: 00:16 Internal Medicine - H&P: HPI Chief complaint: change of mental status History of present illness: 63 years old female with past medical history of diabetes mellitus, hyperlipidemia, arthritis, hypertension,, pulmonary embolus and coronary artery disease, deep COPD and DVT who presented to the ER with change of mental status associated with nausea and vomiting as well as diarrhea. The patient was evalu ated by the ER staff and CAT scan of the abdomen revealed Mild to moderate left hydronephrosis secondary to a calculus/calculi at the left ureterovesical junction, the conglomerate of which measures approximately 5-6 mm. Additional left nephrolithiasis. The patient laboratory data revealed revealed elevated white blood cell count of 19.9, acute kidney injury was reported creatinine of 1.7 as well as UTI Urology was consulted by the ER staff and they agreed to see the patient in consult in a.m. Past Med Surg Social Fam HX - Past Medical History Medical history: diabetes, renal disease, atrial fibrillation, hyperlipidemia, arthritis, hypertension, pulmonary embolus, other, coronary artery disease, COPD, DVT Additional medical history: R BKA. Vit D Deficiency. Left foot digits amputat ed Psychiatric history: anxiety, depression - Past Surgical History Surgical History: other Additional surgical history: Left TMA, right BKA - Social History Smoking Status: Current every day smoker Smokeless Tobacco Status: No Alcohol use: none Drug use: none - Family History Mother Family Member Ethnicity: Non- Twin of Family Member: Yes, Identical Living Status: Hx Family Cardiac Disorders: Yes Hx Family Respiratory Disorders: No Hx Family Cancer: Yes (aunt) Hx Family GI Disorders: Yes Hx Family Endocrine Disorder: Yes Hx Family Neurologic Disorders: Yes Hx Family HEENT Disorders: No Hx Family Autoimmune Disorders: No Father Living Status: Hx Family Cardiac Disorders: Yes Hx Family Endocrine Disorder: Yes (diabetes) Brother Living Status: Hx Family Endocrine Disorder: Yes (diabetes) Internal Medicine - H&P: Meds Acetaminophen [Tylenol] 1,000 mg PO Q6HR PRN 11/30/18 [History] Cholecalciferol (Vitamin D3) [Vitamin D] 1,000 unit PO DAILY 11/30/18 [History] Clopidogrel Bisulfate [Plavix] 75 mg PO DAILY 11/30/18 [History] Duloxetine HCl [Cymbalta] 60 mg PO DAILY 11/30/18 [History] Gabapentin [Neurontin] 1,200 mg PO TID 11/30/18 [History] Insulin ASPART [Novolog] 18 - 32 unit SQ TID 11/30/18 [History] Liraglutide [Victoza 2-Zaid] 1.2 mg SQ DAILY 11/30/18 [History] Loratadine [Claritin] 10 mg PO DAILY 11/30/18 [History] Metoprolol [Lopressor] 150 mg PO BID 11/30/18 [History] Multivitamin,Stress Formula [Stress Formula] 1 each PO DAILY 11/30/18 [History] Rivaroxaban [Xarelto] 15 mg PO 1700 11/30/18 [History] Spironolactone [Aldactone] 25 mg PO DAILY 11/30/18 [History] Umeclidinium [place] [Incruse Ellipta] 1 puff IH DAILY 11/30/18 [History] amLODIPine [Norvasc] 5 mg PO DAILY 11/30/18 [History] Albuterol Sulfate [Ventolin Hfa] 2 puff IH BID 12/02/18 [History] Atorvastatin [Lipitor] 10 mg PO HS 12/02/18 [History] Fluticasone Propionate Nasal [Flonase] 1 spray NS DAILY 12/02/18 [History] Fluticasone/Salmeterol [Advair 250-50 Diskus] 1 puff IH BID 12/02/18 [History] Fluticasone/Vilanterol [Breo Ellipta 100-25 Mcg INH] 1 puff IH DAILY 12/02/18 [History] Furosemide [Lasix] 60 mg PO BID 12/02/18 [History] Insulin Glargine,Hum.rec.anlog [Basaglar Kwikpen U-100] 36 unit SQ BID 12/02/18 [History] Potassium Chloride [Klor-Con 10] 30 meq PO DAILY 12/02/18 [History] Sertraline [Zoloft] 75 mg PO DAILY 12/02/18 [History] Vitamin B Complex/Vit C/Vit E [Stresstab] 1 tab PO DAILY 12/02/18 [History] Allergy/AdvReac Type Severity Reaction Status Date / Time codeine Allergy See Verified 11/30/18 17:25 Comments latex Allergy See Verified 11/30/18 17:25 Comments Paroxetine [From Paxil] Allergy See Verified 11/30/18 17:25 Comments Penicillins Allergy See Verified 11/30/18 17:25 Comments ROS unobtainable: due to mental status - Constitutional Exam: ` - Head Head exam: Present: atraumatic, normocephalic - Neck Neck exam general surgery: Present: supple, trachea midline. Absent: lymphadenopathy - Respiratory Respiratory exam: Present: CTAB. Absent: accessory muscle use, rales, rhonchi, wheezes - Cardiovascular Cardiovascular exam: Present: RRR, +S1, +S2. Absent: diastolic murmur, gallop, rubs, systolic murmur - GI/Abdominal GI/Abdominal exam: Present: normal bowel sounds, soft, no peritoneal signs. Absent: distended, tenderness - Extremities Exam Extremities exam: Present: warm, radial pulses palpable and symmetrical. Absent: calf tenderness, cyanotic, pedal edema Internal Med - H&P Results - Labs CBC & Chem 7: 12/10/18 04:09 12/10/18 04:09 - Assessment and Plan (1) UTI (urinary tract infection) Current Visit: Yes Status: Inactive Assessment and plan: -The patient was evaluated by the ER staff and CAT scan of the abdomen revealed Mild to moderate left hydronephrosis secondary to a calculus/calculi at the left ureterovesical junction, the conglomerate of which measures approximately 5-6 mm. Additional left nephrolithiasis. -The patient laboratory data revealed revealed elevated white blood cell count of 19.9, acute kidney injury was reported creatinine of 1.7 as well as UTI - Urology was consulted by the ER staff and they agreed to see the patient in consult in a.m. - We will start empiric Abs, f/u urine CX and adjust regimen of indication. - Sart IV hydration with Isotonic saline. Qualifiers: Urinary tract infection type: acute pyelonephritis Qualified Code(s): N10 - Acute pyelonephritis (2) Diabetes mellitus Current Visit: Yes Status: Chronic Assessment and plan: We will start insulin sliding scale with coverage Qualifiers: Diabetes mellitus type: type 2 Diabetes mellitus correction insulin use: with correction use Diabetes mellitus complication status: with skin complications Diabetes mellitus complication detail: with foot ulcer Qualified Code(s): E11.621 - Type 2 diabetes mellitus with foot ulcer; L97.509 - Non-pressure chronic ulcer of other part of unspecified foot with unspecified severity; Z79.4 - penitentiary (current) use of insulin (3) Atrial fibrillation Current Visit: Yes Status: Acute Assessment and plan: Rate is uncontrolled, Patient given 5mg IV lopressor without significant change. Patient had no significant response. Will give bolus of cardizem 25mg a nd ordered IV cardizem drip. Qualifiers: Atrial fibrillation type: chronic Qualified Code(s): I48.2 - Chronic atrial fibrillation (4) Hypertension Current Visit: No Status: Chronic Assessment and plan: We will cont to monitor, starting IV anti hypertensive for systolic blood pressure above 180 and diastolic blood pressure 100. 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 Qualifiers: Chronic kidney disease stage: stage 3 (moderate) Qualified Code(s): N18.3 - Chronic kidney disease, stage 3 (moderate) (7) Sepsis Current Visit: Yes Status: Acute Assessment and plan: sepsis protocol initiated, IV Fluids, Abs, CX obtained Qualifiers: Sepsis type: sepsis due to unspecified organism Qualified Code(s): A41.9 - Sepsis, unspecified organism (8) Peripheral arterial disease Current Visit: No Status: Acute (9) Complete below knee amputation of right lower extremity Current Visit: No Status: Acute Qualifiers: Qualified Code(s): S88.111A - Complete traumatic amputation at level between knee and ankle, right lower leg, initial encounter (10) Obstructive uropathy Current Visit: No Status: Inactive Assessment and plan: See # 1 - Time Spent With Patient Total time spent is greater than 50% in coordination of care (as documented) at patient's floor/unit and/or counseling patient:
[2018-12-01] MEDS ORDERED: Acetaminophen 325 MG TABLET PO PRN ×2 (00:17→14:12)
[2018-12-01] MEDS ORDERED: Naloxone 0.4 MG/ML INJ IVP PRN ×2 (00:17→14:12)
[2018-12-01] MEDS ORDERED: Ondansetron 4 MG/2 ML VIAL IVP PRN (00:17)
[2018-12-01] MEDS ORDERED: 0.9 % Sodium Chloride 1,000 ML IVC SCH ×2 (00:30→10:45)
[2018-12-01] MEDS ORDERED: 0.9 % Sodium Chloride 1,000 ML IVC ONE ×3 (02:57→09:29)
[2018-12-01 03:32] LABS: Mean Corpuscular Hemoglobin 29.2 pg (28.0-33.3); Red Cell Distribution Width 16.1 % (11.5-14.5)
[2018-12-01 03:33] LABS: Basophils # 0.1 K/mcL (0.0-0.2); Basophils % 0.3 %; Hematocrit 45.3 % (35.3-44.9); Hemoglobin 13.8 g/dL (11.5-15.4); Immature Granulocytes % 2.4 % (0-4); Lymphocytes # 0.7 K/mcL (0.6-4.6); Lymphocytes % 2.2 %; Mean Corpuscular HGB Conc 30.5 g/dL (31.6-35.5); Mean Corpuscular Volume 95.8 fL (83.0-100.0); Mean Platelet Volume 11.6 fL (9.4-12.4); Monocytes # 1.1 K/mcL (0.0-1.3); Monocytes % 3.5 %; Neutrophils # 28.2 K/mcL (1.6-8.9); Nucleated Red Blood Cells 0.1 /100 WBC (0); Platelet Count 236 K/mcL (140-400); Red Blood Count 4.73 M/mcL (3.82-4.97); Segmented Neutrophils % 91.6 %
[2018-12-01 03:36] LABS: White Blood Count 30.8 K/mcL (4.3-11.1)
[2018-12-01 03:41] LABS: INR 1.8; Prothrombin Time 20.8 Seconds (9.4-12.1)
[2018-12-01 03:43] LABS: Activated Partial Thrombo Time 36.4 Seconds (26.0-36.0)
[2018-12-01 03:52] LABS: Albumin 3.3 g/dL (3.5-5.7); Albumin/Globulin Ratio 1.2 (1.1-2.2); Bilirubin,Total 0.8 mg/dL (0.3-1.0); Calcium 7.6 mg/dL (8.6-10.3); Chol/HDL Ratio 3.3 (0-4.9); Globulin 2.8 g/dL (2.4-3.5); Magnesium 1.4 mg/dL (1.6-2.6); Phosphorous 3.4 mg/dL (2.7-4.5); Potassium 4.2 mEq/L (3.5-5.1); Total Protein 6.1 g/dL (6.4-8.9)
[2018-12-01 03:57] LABS: Platelet Estimate Normal (Normal)
[2018-12-01] MEDS ORDERED: D5% in Water 1,000 ML IVC PRN ×2 (03:57→14:12)
[2018-12-01] MEDS ORDERED: Dextrose Gel 15 GM/37.5 ML TUBE PO PRN ×4 (03:57→14:12)
[2018-12-01] MEDS ORDERED: *HR* Dextrose 50 % in Water (Syg) 50 ML SYRINGE IVP PRN ×2 (03:57→14:12)
[2018-12-01] MEDS ORDERED: Insulin LISPRO 300 UNITS/3 ML VIAL SQ SCH ×4 (04:06→21:00)
--- NOTE | 2018-12-01 04:31 | Event Note ---
Date of Encounter: 12/01/18 Time of Encounter: 04:31 I was contacted by our nurse practitioner who reported that the patient is febrile, white blood cell count is trending up, underlying sepsis cannot be excluded. The patient will be upgraded to the intensive care unit for close monitoring and possible pressors support if indicated. Blood cultures were obtained. Reviewing patient's prior culture data revealed that prior infection was resistant to Levaquin. We will start the patient on cefepime and F/u urine Cx results.
[2018-12-01 04:37] LABS: ABG Base Excess -8 mEq/L (-2 to 3); ABG HCO3 18 mEq/L (21-27); ABG Oxygen Saturation 91 % (95-98); ABG PCO2 39 mmHg (35-45); ABG PH 7.27 pH Units (7.32-7.45); ABG PO2 70 mmHg (85-104); ABG TCO2 19 mEq/L (20-26)
[2018-12-01 04:53] LABS: Bilirubin,Urine Negative (Negative); Blood,Urine Moderate (Negative); Clarity,Urine Cloudy (Clear); Color,Urine Yellow (Yellow); Glucose,Urine (UA) Normal (Normal); Ketones,Urine Negative (Negative); Leukocyte Esterase,Urine Large (Negative); Nitrite,Urine Positive (Negative); PH,Urine 5.5 pH Units (5.0-8.0); Protein,Urine Negative (Neg-Trace); Specific Gravity,Urine 1.016 (1.010-1.025); Urobilinogen,Urine Normal (Normal)
[2018-12-01 04:55] LABS: Bacteria,Urine Moderate per hpf (None-Few); RBC,Urine 0-3 per hpf (0-3); Squamous Epithelial Cell,Urine Many per lpf (None-Few)
[2018-12-01] MEDS ORDERED: *HR* Metoprolol 5 MG/5 ML VIAL IVP ONE ×2 (05:04→05:06)
[2018-12-01 05:05] LABS: Hyaline Casts,Urine Few per lpf (None-Few)
[2018-12-01] MEDS ORDERED: Ipratropium/Albuterol Neb 3 ML IH ONE (05:10)
[2018-12-01] MEDS ORDERED: Levalbuterol Neb 1.25 MG/3 ML ONE (05:14)
[2018-12-01] MEDS ORDERED: *HR* Heparin 5,000 UNIT/ML VIAL IVP ONE (05:17)
[2018-12-01] MEDS ORDERED: *HR* Heparin 5,000 UNIT/ML VIAL IVP PRN ×4 (05:17→14:12)
[2018-12-01] MEDS: Levalbuterol Neb 1.25 MG/3 ML IH SCH ×4 (05:20→21:34)
--- NOTE | 2018-12-01 05:22 | Event Note ---
Date of Encounter: 12/01/18 Time of Encounter: 05:20 Patient in AF with RVR. Patient given 5mg IV lopressor without significant change. Patient had no significant response. Will give bolus of cardizem 25mg and ordered IV cardizem drip. Will obtain STAT XR chest to eval for new infiltrate given significant leukocytosis and hypoxia. Placed order for heparin. Dr. Salguero in to see patient and will take her to surgery emergently for left ureteral stenting due to septic stone. Patient on BiPAP now for respiratory failure. Will give one time dose of 40mg Lasix. Attempting to contact family to obtain consent for surgery but if not, will perform emergently.
[2018-12-01] MEDS ORDERED: Heparin 25,000 UNIT/250 ML D5W 25,000 UNIT/250 ML IV.SOLN IVC SCH (05:30)
[2018-12-01] MEDS ORDERED: Furosemide 40 MG/4 ML VIAL IVP ONE (05:46)
[2018-12-01] MEDS ORDERED: Cefepime HCl 2,000 MG in Water for inj. (sterile) 20 ML IVP SCH (06:00)
--- NOTE | 2018-12-01 06:21 | Urology - Consult Note ---
Date of Encounter: 12/01/18 Time of Encounter: 06:19 - Assessment and Plan (1) Ureteral calculi Current Visit: Yes Status: Acute Assessment and plan: The patient has an obstructing ureteral calculi with hydronephrosis with UTI and likely urosepsis. Her condition is worsening and she requires emergent surgical intervention. I contacted her emergency contact which was Alexa Seo. I was able to talk with her and she stated that she was "just a friend "she is unsure if the patient has a living will or power of real estate attorney. She does know she has 2 brothers but does not have their phone numbers available. I told her that the patient is very ill and requiring emergency surgery. We discussed that she may require intubation for a period of time following the procedure. We also discussed that she is in critical condition with high potential for morbidity or even mortality. She stated that she would go over to the patient's house an attempt to find the family's phone numbers. We are proceeding with the surgery this morning without informed consent from the patient as I am deeming it an emergency. I have listed on the consent and attempt at a ureteroscopic stone extraction as the stones are very distal. At times a stone extraction is necessary to place the ureteral stent. Otherwise I will proceed with only a ureteral stent to minimize manipulation of her system in the setting of urosepsis. (2) Hydronephrosis Current Visit: Yes Status: Acute Assessment and plan: Plan to place ureteral stent to resolve the hydronephrosis and urosepsis Qualifiers: Hydronephrosis type: unspecified Qualified Code(s): N13.30 - Unspecified hydronephrosis (3) Sepsis Current Visit: Yes Status: Acute Assessment and plan: Plan to place ureteral stent to resolve the hydronephrosis and urosepsis Qualifiers: Sepsis type: sepsis due to unspecified organism Qualified Code(s): A41.9 - Sepsis, unspecified organism Urology CN:HPI Consult date: 12/01/18 Reason for consult Urology: Hydronephrosis History of present illness: Patient transferred from [place] emergency room overnight because of confusion, distal 5 mm ureteral stone, concern for urosepsis. I evaluated the patient this morning in the ICU and speaking to the physician and nursing staff she began to become more unstable within the last 1-2 hours. Labs this morning show an increase in her white cell count of 30,000. Creatinine 2.4. Tachycardic to 130/140. She is not on pressors. Respirations are more labored. Past Med Surg Social Fam HX - Past Medical History Medical history: diabetes, renal disease, atrial fibrillation, hyperlipidemia, arthritis, hypertension, pulmonary embolus, other, coronary artery disease, COPD, DVT Additional medical history: R BKA. Vit D Deficiency. Left foot digits amputated Psychiatric history: anxiety, depression - Past Surgical History Surgical History: other Additional surgical history: Left TMA, right BKA - Social History Smoking Status: Current every day smoker Smokeless Tobacco Status: No Alcohol use: none Drug use: none - Family History Mother Family Member Ethnicity: Non- Twin of Family Member: Yes, Identical Living Status: Hx Family Cardiac Disorders: Yes Hx Family Respiratory Disorders: No Hx Family Cancer: Yes (aunt) Hx Family GI Disorders: Yes Hx Family Endocrine Disorder: Yes Hx Family Neurologic Disorders: Yes Hx Family HEENT Disorders: No Hx Family Autoimmune Disorders: No Father Living Status: Hx Family Cardiac Disorders: Yes Hx Family Endocrine Disorder: Yes (diabetes) Brother Living Status: Hx Family Endocrine Disorder: Yes (diabetes) Medications and Allergies Acetaminophen [Tylenol] 1,000 mg PO Q6HR 11/30/18 [History] Atorvastatin Calcium [Lipitor] 20 mg PO DAILY 11/30/18 [History] Cholecalciferol (Vitamin D3) [Vitamin D] 1,000 unit PO DAILY 11/30/18 [History] Clopidogrel Bisulfate [Plavix] 75 mg PO DAILY 11/30/18 [History] Duloxetine HCl [Cymbalta] 60 mg PO DAILY 11/30/18 [History] Fluticasone Propionate [Flovent Diskus] 50 mcg IH DAILY 11/30/18 [History] Fluticasone/Salmeterol [Advair 250-50 Diskus] 1 each IH BID 11/30/18 [History] Furosemide [Lasix] 40 mg PO BID 11/30/18 [History] Gabapentin [Neurontin] 600 mg PO TID 11/30/18 [History] Glimepiride [Amaryl] 2 mg PO 0800 11/30/18 [History] Insulin ASPART [Novolog] 0 unit SQ TID 11/30/18 [History] Insulin DETEMIR [Levemir] 50 unit SQ HS 11/30/18 [History] Insulin Glargine,Hum.rec.anlog [Basaglar Kwikpen U-100] 35 unit SQ BID 11/30/18 [History] Liraglutide [Victoza 2-Zaid] 1.2 mg SQ DAILY 11/30/18 [History] Loratadine [Claritin] 10 mg PO DAILY 11/30/18 [History] Losartan Potassium 50 mg PO DAILY 11/30/18 [History] Metoprolol [Lopressor] 100 mg PO BID 11/30/18 [History] Multivitamin,Stress Formula [Stress Formula] 1 each PO DAILY 11/30/18 [History] Potassium Chloride [K-Tab ER] 60 meq PO DAILY 11/30/18 [History] Rivaroxaban [Xarelto] 15 mg PO 1700 11/30/18 [History] Sertraline [Zoloft] 50 mg PO DAILY 11/30/18 [History] Spironolactone [Aldactone] 25 mg PO DAILY 11/30/18 [History] Umeclidinium O[place] [Incruse Ellipta] 62.5 mcg IH DAILY 11/30/18 [History] amLODIPine [Norvasc] 5 mg PO DAILY 11/30/18 [History] Allergy/AdvReac Type Severity Reaction Status Date / Time codeine Allergy See Verified 11/30/18 17:25 Comments latex Allergy See Verified 11/30/18 17:25 Comments Paroxetine [From Paxil] Allergy See Verified 11/30/18 17:25 Comments Penicillins Allergy See Verified 11/30/18 17:25 Comments Review of Systems ROS unobtainable: due to mental status Exam Initial Vital Signs Temp Pulse Resp BP Pulse Ox 98.5 F 106 15 101/67 93 12/01/18 00:23 12/01/18 00:23 12/01/18 00:23 12/01/18 00:23 12/01/18 00:23 - General physical appearance Present: other (Patient is confused. Does not answer questions appropriately. No obvious pain) - Eyes Present: other (Eyes are closed but did open momentarily to questions) - ENT Present: normal mucosa - Neck Present: no masses, no lymphadenopathy - Respiratory Present: other (Labored breathing. On BiPAP.) - Cardiovascular Cardiovascular exam IM: tachycardia - Abdomen Abdomen: Present: soft, suprapubic tenderness - Neurologic Present: disoriented, confused Urology Results - Labs 12/01/18 03:19 12/01/18 03:19 Abnormal lab results WBC 30.8 K/mcL (4.3-11.1) H* D 12/01/18 03:19 Hct 45.3 % (35.3-44.9) H 12/01/18 03:19 MCHC 30.5 g/dL (31.6-35.5) L 12/01/18 03:19 RDW 16.1 % (11.5-14.5) H 12/01/18 03:19 Neutrophils # 28.2 K/mcL (1.6-8.9) H 12/01/18 03:19 Nucleated RBCs/100 WBC 0.1 /100 WBC (0) H 12/01/18 03:19 PT 20.8 Seconds (9.4-12.1) H 12/01/18 03:19 APTT 36.4 Seconds (26.0-36.0) H 12/01/18 03:19 ABG pH 7.27 pH Units (7.32-7.45) L 12/01/18 04:34 ABG pO2 70 mmHg (85-104) L 12/01/18 04:34 ABG HCO3 18 mEq/L (21-27) L 12/01/18 04:34 ABG Total CO2 19 mEq/L (20-26) L 12/01/18 04:34 ABG O2 Saturation 91 % (95-98) L 12/01/18 04:34 ABG Base Excess -8 mEq/L (-2 to 3) L 12/01/18 04:34 Sodium 133 mEq/L (136-145) L 12/01/18 03:19 Carbon Dioxide 16 mEq/L (23-29) L 12/01/18 03:19 BUN 28 mg/dL (8-23) H 12/01/18 03:19 Creatinine 2.40 mg/dL (0.60-1.20) H 12/01/18 03:19 Est GFR ( Amer) 25 (> 60) L 12/01/18 03:19 Est GFR (Non-Af Amer) 20 (> 60) L 12/01/18 03:19 Glucose 201 mg/dL (70-105) H 12/01/18 03:19 Calcium 7.6 mg/dL (8.6-10.3) L 12/01/18 03:19 Magnesium 1.4 mg/dL (1.6-2.6) L 12/01/18 03:19 Serum Total Protein 6.1 g/dL (6.4-8.9) L 12/01/18 03:19 Albumin 3.3 g/dL (3.5-5.7) L 12/01/18 03:19 HDL Cholesterol 22 mg/dL (40-59) L 12/01/18 03:19 Urine Clarity Cloudy (Clear) A 12/01/18 04:23 Urine Blood Moderate (Negative) H 12/01/18 04:23 Urine Nitrite Positive (Negative) A 12/01/18 04:23 Ur Leukocyte Esterase Large (Negative) H 12/01/18 04:23 Urine Microscopic WBC 3-5 per hpf (0-3) H 12/01/18 04:23 Ur Squamous Epith Cells Many per lpf (None-Few) H 12/01/18 04:23 Urine Bacteria Moderate per hpf (None-Few) H 12/01/18 04:23 Diabetes panel 12/01/18 Range/Units 03:19 Sodium 133 L (136-145) mEq/L Potassium 4.2 (3.5-5.1) mEq/L Chloride 107 (98-107) mEq/L Carbon Dioxide 16 L (23-29) mEq/L BUN 28 H (8-23) mg/dL Creatinine 2.40 H (0.60-1.20) mg/dL Glucose 201 H (70-105) mg/dL Calcium 7.6 L (8.6-10.3) mg/dL AST 17 (13-39) Units/L ALT 9 (7-52) Units/L Alkaline Phosphatase 81 (34-104) Units/L Albumin 3.3 L (3.5-5.7) g/dL Triglycerides 86 (< 150) mg/dL HDL Cholesterol 22 L (40-59) mg/dL Calcium panel 12/01/18 Range/Units 03:19 Calcium 7.6 L (8.6-10.3) mg/dL Phosphorus 3.4 (2.7-4.5) mg/dL Albumin 3.3 L (3.5-5.7) g/dL Pituitary panel 12/01/18 Range/Units 03:19 Sodium 133 L (136-145) mEq/L Potassium 4.2 (3.5-5.1) mEq/L Chloride 107 (98-107) mEq/L Carbon Dioxide 16 L (23-29) mEq/L BUN 28 H (8-23) mg/dL Creatinine 2.40 H (0.60-1.20) mg/dL Glucose 201 H (70-105) mg/dL Calcium 7.6 L (8.6-10.3) mg/dL Adrenal panel 12/01/18 Range/Units 03:19 Sodium 133 L (136-145) mEq/L Potassium 4.2 (3.5-5.1) mEq/L Chloride 107 (98-107) mEq/L Carbon Dioxide 16 L (23-29) mEq/L BUN 28 H (8-23) mg/dL Creatinine 2.40 H (0.60-1.20) mg/dL Glucose 201 H (70-105) mg/dL Calcium 7.6 L (8.6-10.3) mg/dL Total Bilirubin 0.8 (0.3-1.0) mg/dL AST 17 (13-39) Units/L ALT 9 (7-52) Units/L Alkaline Phosphatase 81 (34-104) Units/L Albumin 3.3 L (3.5-5.7) g/dL All other labs normal. Consult Discharge Plan - Plan Referrals: Kelly Cardozo RN [Primary Care Provider] -
[2018-12-01 06:28] LABS: Estimated Average Glucose 200 mg/dl
[2018-12-01] MEDS ORDERED: Isovue-300 50 ML VIAL ONE (07:12)
--- NOTE | 2018-12-01 07:29 | Anesthesia Evaluation PreOp ---
Date of Encounter: 12/01/18 Time of Encounter: 19:30 - Past History Planned Operation: Cystoscopy Left USE Cardiac History: HTN, Hyperlipidemia, Arrhythmia (AFib RVR) Pulmonary History: COPD CLINICAL APPLICATION MANAGER History: Denies Any Significant HX Other Medical History: Renal (CKD), Diabetes Type II, Other (Anxiety Depression) Anesthesia History: No Prior Anesthetic Complications Alcohol Use: none Drug use: none Medications and Allergies Acetaminophen [Tylenol] 1,000 mg PO Q6HR 11/30/18 [History] Atorvastatin Calcium [Lipitor] 20 mg PO DAILY 11/30/18 [History] Cholecalciferol (Vitamin D3) [Vitamin D] 1,000 unit PO DAILY 11/30/18 [History] Clopidogrel Bisulfate [Plavix] 75 mg PO DAILY 11/30/18 [History] Duloxetine HCl [Cymbalta] 60 mg PO DAILY 11/30/18 [History] Fluticasone Propionate [Flovent Diskus] 50 mcg IH DAILY 11/30/18 [History] Fluticasone/Salmeterol [Advair 250-50 Diskus] 1 each IH BID 11/30/18 [History] Furosemide [Lasix] 40 mg PO BID 11/30/18 [History] Gabapentin [Neurontin] 600 mg PO TID 11/30/18 [History] Glimepiride [Amaryl] 2 mg PO 0800 11/30/18 [History] Insulin ASPART [Novolog] 0 unit SQ TID 11/30/18 [History] Insulin DETEMIR [Levemir] 50 unit SQ HS 11/30/18 [History] Insulin Glargine,Hum.rec.anlog [Basaglar Kwikpen U-100] 35 unit SQ BID 11/30/18 [History] Liraglutide [Victoza 2-Zaid] 1.2 mg SQ DAILY 11/30/18 [History] Loratadine [Claritin] 10 mg PO DAILY 11/30/18 [History] Losartan Potassium 50 mg PO DAILY 11/30/18 [History] Metoprolol [Lopressor] 100 mg PO BID 11/30/18 [History] Multivitamin,Stress Formula [Stress Formula] 1 each PO DAILY 11/30/18 [History] Potassium Chloride [K-Tab ER] 60 meq PO DAILY 11/30/18 [History] Rivaroxaban [Xarelto] 15 mg PO 1700 11/30/18 [History] Sertraline [Zoloft] 50 mg PO DAILY 11/30/18 [History] Spironolactone [Aldactone] 25 mg PO DAILY 11/30/18 [History] Umeclidinium [place] [Incruse Ellipta] 62.5 mcg IH DAILY 11/30/18 [History] amLODIPine [Norvasc] 5 mg PO DAILY 11/30/18 [History] Allergy/AdvReac Type Severity Reaction Status Date / Time codeine Allergy See Verified 11/30/18 17:25 Comments latex Allergy See Verified 11/30/18 17:25 Comments Paroxetine [From Paxil] Allergy See Verified 11/30/18 17:25 Comments Penicillins Allergy See Verified 11/30/18 17:25 Comments - Meds/Allergy Pre-op Review Medications Reviewed: Yes Allergies Reviewed: Yes Beta Blockers on Current Med List: Yes (Lopressor) Anesthesia Results - Labs 12/01/18 03:19 12/01/18 03:19 Anesthesia Exam O2 Sat Height 1.63 m Weight 110.1 kg O2 Sat by Pulse Oximetry 95 O2 Sat by Pulse Oximetry 96 O2 Sat by Pulse Oximetry 88 O2 Sat by Pulse Oximetry 93 O2 Sat by Pulse Oximetry 93 Vital Signs Temp Pulse Resp BP Pulse Ox 98.5 F 106 15 101/67 93 12/01/18 00:23 12/01/18 00:23 12/01/18 00:23 12/01/18 00:23 12/01/18 00:23 Height: 5'4 Weight: 242 lbs NPO (# of Hours): MN Pain Scale: 0 - HEENT Pupil (Motor): Pupils equal, EOMI Oral Opening: Less than or equal to 3 - CLINICAL APPLICATION MANAGER LOC: Confused CLINICAL APPLICATION MANAGER Motor: Normal RUE, Normal LUE, Normal RLE, Normal LLE, Normal Face CLINICAL APPLICATION MANAGER Sensory: Normal: RUE, LUE, RLE, LLE, Face - Cardiac Rhythm: Irregular Murmur: None JVD: No Carotid Bruit: No - Pulmonary Breath Sounds: bilateral Clear Respiratory Effort: Symmetrical Anesthesia Assess/Plan ASA Score: 4 (AFib Sepsis CAD COPD) Level of consciousness: Cooperative, Oriented Anesthetic Plan: General Monitoring Plan: Standard Monitors Recovery Plan: ICU (Discussed GA, post op intubation)
[2018-12-01] MEDS ORDERED: Heparin 1,000 UNITS/500 mL 500 ML ONE (07:41)
[2018-12-01] MEDS ORDERED: *HR* Vasopressin 20 UNIT/ML VIAL ONE (07:45)
[2018-12-01] MEDS ORDERED: Esmolol 100 MG/10 ML VIAL IVP ONE (07:53)
--- NOTE | 2018-12-01 08:23 | Operative Note ---
Date of procedure: 12/01/18 Pre-op diagnosis: severe sepsis. left proximal ureteral stone and hydronephrosis Post-op diagnosis: same Procedure: cystoscopy. left retrograde pyelogram and JJ stent placement Anesthesia: GETA Surgeon: Manan Salguero Was there an assistant corporate controller present: No Estimated blood loss (cc): 0 Specimen: Left renal pelvis aspirate for culture Condition: stable Disposition: PACU Procedure in Detail: PROCEDURE IN DETAIL: Patient was taken back to the operating room, positioned supine on the operating table. Patient was transferred from the ICU directly to the operating room because of her critical status and likely severe urosepsis. Anesthesia was applied without complication. They were moved into dorsal lithotomy. Careful attention was maintained to cushion all pressure points for patient's safety. They were prepped and draped in sterile fashion. Time-out was performed with the proper patient and procedure. A 21-Kenyan rigid cystoscope was inserted into the bladder without difficulty. Systematic examination of bladder revealed significant cystitis and debris. The left ureteral orifice was cannulated using a 5-Kenyan ureteral Catheter and a retrograde pyelogram was performed using Isovue. A filling defect was identified which corresponded to the stone but no contrast passed proximal to the stone. I advanced the zip wire and was able to manipulate the zip wire into the renal pelvis. I then passed the 5-Kenyan ureteral catheter over the zip wire into the renal pelvis. I aspirated 10 mL of opaque purulent fluid. This was sent for culture. I then removed the 5-Kenyan and placed a 6 x 26 ureteral stent. A good curl was noted in the upper pole the kidney and the bladder using fluoroscopy. 18-Kenyan Lama catheter was placed at the end of the procedure. As mentioned in the addendum to my note prior to the case, the CT scan report stated the stone was at the ureterovesical junction. I personally reviewed the images and confirmed a stone at the ureteral pelvic junction. my operative findings confirm this
[2018-12-01] MEDS ORDERED: levoFLOXacin 750 MG/150 ML 750 MG/150 ML BAG IVPB SCH (09:00)
--- NOTE | 2018-12-01 09:03 | Pulmonology Consult Note ---
<Mickey Dye - Last Filed: 12/01/18 22:24> Date of Encounter: 12/01/18 Time of Encounter: 09:00 Assessment and Plan (1) Acute and chronic respiratory failure with hypoxia Current Visit: Yes Status: Acute Due to hemodynamic instability with urosepsis Currently intubated and sedated with Fentanyl and Precedex Continue scheduled bronchodilators and Symbicort - pt does have hx of COPD and tobacco abuse Continue to monitor closely in the ICU GI prophylaxis with daily Protonix IV (2) Sepsis Current Visit: Yes Status: Acute Initial presentations of AMS, nausea, vomiting, and diarrhea Tempterature during presentation was 101.7 Tachycardic Tachypnic Initial WBC from [facility] elevated at 19.9 Received levaquin and 1.5L IV fluids while at [facility] CT scan of the abdomen/pelvis showed obstructive uropathy - pt was subsequently transferred to [facility] for urology consult WBC this AM increased to 30.8 Continue to be tachycardic despite 5mg IV Lopressor, followed by Sarah rosales Continue to be tachypnic Went to OR with Dr Salguero and had ureteral stent placement with purulent urine drainage Received a dose of Zosyn at that time Remains intubated and sedated as above Will administer further IV fluids as BPs remain decreased BPs remained decreased after 2L IV fluids in ICU Consult to Dr Alejandro for emergent CVC placement with poor IJ and femoral anatomy per ultrasound No family members were available at that time. CVC was placed emergently for pressure support Continue Levophed and wean as tolerated Continue IV Vanc and Zosyn at this time Urine culture pending from [facility] ED Urine culture pending from OR Blood cultures pending x2 Qualifiers: Sepsis type: sepsis due to unspecified organism Qualified Code(s): A41.9 - Sepsis, unspecified organism (3) UTI (urinary tract infection) Current Visit: Yes Status: Acute as above Qualifiers: Urinary tract infection type: acute pyelonephritis Qualified Code(s): N10 - Acute pyelonephritis (4) Ureteral calculi Current Visit: Yes Status: Acute as seen on CT abdomen and pelvis Urology on board (5) COPD (chronic obstructive pulmonary disease) Current Visit: Yes Status: Chronic As above Qualifiers: COPD type: unspecified COPD Qualified Code(s): J44.9 - Chronic obstructive pulmonary disease, unspecified (6) Diabetes mellitus Current Visit: Yes Status: Chronic q6hr accuchecks and SSI 10u Levemir daily Qualifiers: Diabetes mellitus type: type 2 Diabetes mellitus ocean transportation intermediary insulin use: with ocean transportation intermediary use Diabetes mellitus complication status: with skin complications Diabetes mellitus complication detail: with foot ulcer Qualified Code(s): E11.621 - Type 2 diabetes mellitus with foot ulcer; L97.509 - Non-pressure chronic ulcer of other part of unspecified foot with unspecified severity; Z79.4 - snf (current) use of insulin (7) Atrial fibrillation Current Visit: Yes Status: Acute Will discontinue Cardizem drip with hypotension related to sepsis On heparin drip currently If HR is persistently >120bpm, may consider Amiodarone Qualifiers: Atrial fibrillation type: chronic Qualified Code(s): I48.2 - Chronic atrial fibrillation (8) Chronic kidney disease Current Visit: Yes Status: Chronic Baseline Cr appears to be around 1.1 Elevated at 2.4 today, but suspect related to urosepsis Continue to monitor kidney functions and UOP closely Qualifiers: Chronic kidney disease stage: stage 3 (moderate) Qualified Code(s): N18.3 - Chronic kidney disease, stage 3 (moderate) (9) DVT prophylaxis Current Visit: Yes Status: Acute On Heparin drip with Afib History of Present Illness Consult date: 12/01/18 Requesting physician: Angie Young Reason for consult: COPD, other Chief complaint: AMS History of present illness: Ms Ness is a 63F with PMH of diabetes, hyperlipidemia, arthritis, hypertensi on, coronary artery disease, COPD, DVT, right below the knee amputation, left toe amputations, anxiety, depression. She was admitted overnight on 12/01/18 for complaints of altered mental status with nausea and vomiting. CT scan of the abdomen revealed mild to moderate left hydronephrosis secondary to acalculous in the left ureterovesicular junction, as well as additional left nephrolithiasis. Initial labs revealed leukocytosis at 19.9, elevated creatinine of 1.77, and lactic acid of 1.5. Urinalysis showed moderate blood, positive nitrates, moderate leukocyte esterase, and moderate bacteria. The patient was admitted for UTI and given IV fluids. Overnight the patient went into atrial fib rillation with RVR, which was refractory to 5 mg IV Lopressor. Cardizem drip was then started. Repeat labs showed increased leukocytosis at 30.8, creatinine of 2.4, and lactic acid 1.5. The patient was then urgently evaluated by urologist Dr. Salguero who took the patient to the OR. On the OR purulent urine was noted behind the stone. There was also noted significant cystitis and debris. Examination of the bladder. In the postoperative period the patient remained on the ventilator was brought back to ICU, and critical care was consulted. Patient seen and examined at bedside. Remains sedated and intubated at this time. Past Med Surg Social Fam HX - Past Medical History Source: old records reviewed Medical history: diabetes, renal disease, atrial fibrillation, hyperlipidemia, arthritis, hypertension, pulmonary embolus, other, coronary artery disease, COPD, DVT Additional medical history: R BKA. Vit D Deficiency. Left foot digits amputated Psychiatric history: anxiety, depression - Past Surgical History Surgical History: other Additional surgical history: Left TMA, right BKA - Social History Smoking Status: Current every day smoker Smokeless Tobacco Status: No Alcohol use: none Drug use: none - Family History Mother Family Member Ethnicity: Non- Twin of Family Member: Yes, Identical Living Status: Hx Family Cardiac Disorders: Yes Hx Family Respiratory Disorders: No Hx Family Cancer: Yes (aunt) Hx Family GI Disorders: Yes Hx Family Endocrine Disorder: Yes Hx Family Neurologic Disorders: Yes Hx Family HEENT Disorders: No Hx Family Autoimmune Disorders: No Father Living Status: Hx Family Cardiac Disorders: Yes Hx Family Endocrine Disorder: Yes (diabetes) Brother Living Status: Hx Family Endocrine Disorder: Yes (diabetes) Medications and Allergies Acetaminophen [Tylenol] 1,000 mg PO Q6HR PRN 11/30/18 [History] Cholecalciferol (Vitamin D3) [Vitamin D] 1,000 unit PO DAILY 11/30/18 [History] Clopidogrel Bisulfate [Plavix] 75 mg PO DAILY 11/30/18 [History] Duloxetine HCl [Cymbalta] 60 mg PO DAILY 11/30/18 [History] Gabapentin [Neurontin] 1,200 mg PO TID 11/30/18 [History] Insulin ASPART [Novolog] 18 - 32 unit SQ TID 11/30/18 [History] Liraglutide [Victoza 2-Zaid] 1.2 mg SQ DAILY 11/30/18 [History] Loratadine [Claritin] 10 mg PO DAILY 11/30/18 [History] Metoprolol [Lopressor] 150 mg PO BID 11/30/18 [History] Multivitamin,Stress Formula [Stress Formula] 1 each PO DAILY 11/30/18 [History] Rivaroxaban [Xarelto] 15 mg PO 1700 11/30/18 [History] Spironolactone [Aldactone] 25 mg PO DAILY 11/30/18 [History] Umeclidinium Seney [Incruse Ellipta] 1 puff IH DAILY 11/30/18 [History] amLODIPine [Norvasc] 5 mg PO DAILY 11/30/18 [History] Albuterol Sulfate [Ventolin Hfa] 2 puff IH BID 12/02/18 [History] Atorvastatin [Lipitor] 10 mg PO HS 12/02/18 [History] Fluticasone Propionate Nasal [Flonase] 1 spray NS DAILY 12/02/18 [History] Fluticasone/Salmeterol [Advair 250-50 Diskus] 1 puff IH BID 12/02/18 [History] Fluticasone/Vilanterol [Breo Ellipta 100-25 Mcg INH] 1 puff IH DAILY 12/02/18 [History] Furosemide [Lasix] 60 mg PO BID 12/02/18 [History] Insulin Glargine,Hum.rec.anlog [Basaglar Kwikpen U-100] 36 unit SQ BID 12/02/18 [History] Potassium Chloride [Klor-Con 10] 30 meq PO DAILY 12/02/18 [History] Sertraline [Zoloft] 75 mg PO DAILY 12/02/18 [History] Vitamin B Complex/Vit C/Vit E [Stresstab] 1 tab PO DAILY 12/02/18 [History] Allergy/AdvReac Type Severity Reaction Status Date / Time codeine Allergy See Verified 11/30/18 17:25 Comments latex Allergy See Verified 11/30/18 17:25 Comments Paroxetine [From Paxil] Allergy See Verified 11/30/18 17:25 Comments Penicillins Allergy See Verified 11/30/18 17:25 Comments ROS unobtainable: due to endotracheal tube, due to mental status All Systems: The remainder of the systems were reviewed and are negative Physical Examination Vital Signs: Vital Signs, Last 4 Hours Pulse Resp BP Pulse Ox 12/01/18 08:45 19 86/54 93 12/01/18 06:00 116 22 86/54 95 12/01/18 05:20 27 96 General appearance: asleep Eyes: nonicteric ENT: oropharynx moist Neck: supple, no JVD Effort: normal Auscultation: bilateral: rales Cardiovascular: other (tachycardia ) Gastrointestinal: soft, other (mild distention ) Integumentary: normal Extremities: no cyanosis, no edema, no clubbing, pink and warm, pulses normal Musculoskeletal: other (Right BKA, and left toe amputations) unable to assess due to mental status Ventilator Settings Ventilator Settings: Ventilator Settings, Last 8 Hours Ventilator Tidal Volume 500 Setting Ventilator Respiratory Rate 12 Setting Actual Respiratory Rate 12 Positive End Expiratory 5 Pressure Peak Inspiratory Airway 26 Pressure Results - Laboratory Findings CBC and BMP: 12/01/18 03:19 12/01/18 03:19 ABG ABG pH 7.27 pH Units (7.32-7.45) L 12/01/18 04:34 ABG pCO2 39 mmHg (35-45) 12/01/18 04:34 ABG pO2 70 mmHg (85-104) L 12/01/18 04:34 ABG O2 Saturation 91 % (95-98) L 12/01/18 04:34 PT/INR, D-dimer PT 20.8 Seconds (9.4-12.1) H 12/01/18 03:19 Abnormal lab findings: Abnormal lab results WBC 30.8 K/mcL (4.3-11.1) H* D 12/01/18 03:19 Hct 45.3 % (35.3-44.9) H 12/01/18 03:19 MCHC 30.5 g/dL (31.6-35.5) L 12/01/18 03:19 RDW 16.1 % (11.5-14.5) H 12/01/18 03:19 Neutrophils # 28.2 K/mcL (1.6-8.9) H 12/01/18 03:19 Nucleated RBCs/100 WBC 0.1 /100 WBC (0) H 12/01/18 03:19 PT 20.8 Seconds (9.4-12.1) H 12/01/18 03:19 APTT 36.4 Seconds (26.0-36.0) H 12/01/18 03:19 ABG pH 7.27 pH Units (7.32-7.45) L 12/01/18 04:34 ABG pO2 70 mmHg (85-104) L 12/01/18 04:34 ABG HCO3 18 mEq/L (21-27) L 12/01/18 04:34 ABG Total CO2 19 mEq/L (20-26) L 12/01/18 04:34 ABG O2 Saturation 91 % (95-98) L 12/01/18 04:34 ABG Base Excess -8 mEq/L (-2 to 3) L 12/01/18 04:34 Sodium 133 mEq/L (136-145) L 12/01/18 03:19 Carbon Dioxide 16 mEq/L (23-29) L 12/01/18 03:19 BUN 28 mg/dL (8-23) H 12/01/18 03:19 Creatinine 2.40 mg/dL (0.60-1.20) H 12/01/18 03:19 Est GFR ( Amer) 25 (> 60) L 12/01/18 03:19 Est GFR (Non-Af Amer) 20 (> 60) L 12/01/18 03:19 Glucose 201 mg/dL (70-105) H 12/01/18 03:19 Hemoglobin A1c 8.6 % (-5.6) H 12/01/18 03:19 Calcium 7.6 mg/dL (8.6-10.3) L 12/01/18 03:19 Magnesium 1.4 mg/dL (1.6-2.6) L 12/01/18 03:19 Serum Total Protein 6.1 g/dL (6.4-8.9) L 12/01/18 03:19 Albumin 3.3 g/dL (3.5-5.7) L 12/01/18 03:19 HDL Cholesterol 22 mg/dL (40-59) L 12/01/18 03:19 Urine Clarity Cloudy (Clear) A 12/01/18 04:23 Urine Blood Moderate (Negative) H 12/01/18 04:23 Urine Nitrite Positive (Negative) A 12/01/18 04:23 Ur Leukocyte Esterase Large (Negative) H 12/01/18 04:23 Urine Microscopic WBC 3-5 per hpf (0-3) H 12/01/18 04:23 Ur Squamous Epith Cells Many per lpf (None-Few) H 12/01/18 04:23 Urine Bacteria Moderate per hpf (None-Few) H 12/01/18 04:23 - Microbiology Findings Microbiology Findings: Microbiology, Last 48 Hours 12/01/18 04:23 Urine Culture - Preliminary Urine,Clean Catch Culture is incubating. 12/01/18 03:50 Blood Culture - Preliminary Peripheral Venipuncture Culture is incubating and being continuously monitored for growth. Final report to follow. 12/01/18 03:59 Blood Culture - Preliminary Peripheral Venipuncture Culture is incubating and being continuously monitored for growth. Final report to follow. - Diagnostic Findings Chest x-ray: report reviewed, image reviewed - Clinical Findings Intake & Output: Intake & Output 11/30/18 12/01/18 12/01/18 23:59 07:59 15:59 Intake Total Output Total 0 / 0 0 / 0 Balance 0 20 Weight 110.1 kg Consult Discharge Plan - Plan Referrals: Kelly Cardozo, RN [Primary Care Provider] - <Tori Real - Last Filed: 12/02/18 14:00> Date of Encounter: 12/01/18 All Systems: The remainder of the systems were reviewed and are negative Physical Examination Vital Signs: Vital Signs, Last 4 Hours Resp BP Pulse Ox 12/01/18 09:36 23 99 12/01/18 08:45 19 86/54 93 Ventilator Settings Ventilator Settings: Ventilator Settings, Last 8 Hours Ventilator Tidal Volume 500 Setting Ventilator Tidal Volume 500 Setting Ventilator Respiratory Rate 12 Setting Ventilator Respiratory Rate 12 Setting Actual Respiratory Rate 12 Actual Respiratory Rate 12 Positive End Expiratory 5 Pressure Positive End Expiratory 5 Pressure Peak Inspiratory Airway 19 Pressure Peak Inspiratory Airway 26 Pressure Results - Laboratory Findings CBC and BMP: 12/02/18 04:21 12/02/18 12:01 ABG ABG pH 7.27 pH Units (7.32-7.45) L 12/01/18 04:34 ABG pCO2 39 mmHg (35-45) 12/01/18 04:34 ABG pO2 70 mmHg (85-104) L 12/01/18 04:34 ABG O2 Saturation 91 % (95-98) L 12/01/18 04:34 PT/INR, D-dimer PT 20.8 Seconds (9.4-12.1) H 12/01/18 03:19 Abnormal lab findings: Abnormal lab results WBC 30.8 K/mcL (4.3-11.1) H* D 12/01/18 03:19 Hct 45.3 % (35.3-44.9) H 12/01/18 03:19 MCHC 30.5 g/dL (31.6-35.5) L 12/01/18 03:19 RDW 16.1 % (11.5-14.5) H 12/01/18 03:19 Neutrophils # 28.2 K/mcL (1.6-8.9) H 12/01/18 03:19 Nucleated RBCs/100 WBC 0.1 /100 WBC (0) H 12/01/18 03:19 PT 20.8 Seconds (9.4-12.1) H 12/01/18 03:19 APTT 36.4 Seconds (26.0-36.0) H 12/01/18 03:19 ABG pH 7.27 pH Units (7.32-7.45) L 12/01/18 04:34 ABG pO2 70 mmHg (85-104) L 12/01/18 04:34 ABG HCO3 18 mEq/L (21-27) L 12/01/18 04:34 ABG Total CO2 19 mEq/L (20-26) L 12/01/18 04:34 ABG O2 Saturation 91 % (95-98) L 12/01/18 04:34 ABG Base Excess -8 mEq/L (-2 to 3) L 12/01/18 04:34 Sodium 133 mEq/L (136-145) L 12/01/18 03:19 Carbon Dioxide 16 mEq/L (23-29) L 12/01/18 03:19 BUN 28 mg/dL (8-23) H 12/01/18 03:19 Creatinine 2.40 mg/dL (0.60-1.20) H 12/01/18 03:19 Est GFR ( Amer) 25 (> 60) L 12/01/18 03:19 Est GFR (Non-Af Amer) 20 (> 60) L 12/01/18 03:19 Glucose 201 mg/dL (70-105) H 12/01/18 03:19 POC Glucose 200 mg/dL (70-99) H 12/01/18 04:05 Hemoglobin A1c 8.6 % (-5.6) H 12/01/18 03:19 Calcium 7.6 mg/dL (8.6-10.3) L 12/01/18 03:19 Magnesium 1.4 mg/dL (1.6-2.6) L 12/01/18 03:19 Serum Total Protein 6.1 g/dL (6.4-8.9) L 12/01/18 03:19 Albumin 3.3 g/dL (3.5-5.7) L 12/01/18 03:19 HDL Cholesterol 22 mg/dL (40-59) L 12/01/18 03:19 Urine Clarity Cloudy (Clear) A 12/01/18 04:23 Urine Blood Moderate (Negative) H 12/01/18 04:23 Urine Nitrite Positive (Negative) A 12/01/18 04:23 Ur Leukocyte Esterase Large (Negative) H 12/01/18 04:23 Urine Microscopic WBC 3-5 per hpf (0-3) H 12/01/18 04:23 Ur Squamous Epith Cells Many per lpf (None-Few) H 12/01/18 04:23 Urine Bacteria Moderate per hpf (None-Few) H 12/01/18 04:23 - Microbiology Findings Microbiology Findings: Microbiology, Last 48 Hours 12/01/18 04:23 Urine Culture - Preliminary Urine,Clean Catch Culture is incubating. 12/01/18 03:50 Blood Culture - Preliminary Peripheral Venipuncture Culture is incubating and being continuously monitored for growth. Final report to follow. 12/01/18 03:59 Blood Culture - Preliminary Peripheral Venipuncture Culture is incubating and being continuously monitored for growth. Final report to follow. - Clinical Findings Intake & Output: Intake & Output 11/30/18 12/01/18 12/01/18 23:59 07:59 15:59 Intake Total 60 40 / 60 Output Total 0 / 0 0 / 0 Balance 40 60 Weight 110.1 kg - Attending Attestation I examined this patient and my medical decision-making was reviewed with the Resident Physician. I agree with the documented findings, disposition and treatment plan as described except to the extent set forth below. Patient seen and examined. Labs, radiology, chart personally reviewed. Agree with resident's history and physical, assessment, plan with following comments: NUCLEAR PHYSICIST: Patient doesn't nfollows commands, patient is on sedation for the vent synchrony. Pulmonary: Acceptable oxygenation and ventilation and checked vent setting and there is no evidence of increased blood pressure, however there is some intrinsic PEEP which could be related to her underlying COPD and hoping adding bronchodilators will help. Patient has history of smoking tobacco and treat for suspect copd. Patient will be intubated for now because of the hemodynamic instability. Cardiovascular: Patient appears to be in shock, which is septic is most likely. GI: Nutrition per dietary and GI prophylaxis per routine Heme: DVT prophylaxis per routine ID: Continue antibiotics and plan to de-escalation. Septic shock is most likely from underlying urinary tract infection. Patient condition could deteriorate if she doesn't respond to the antibiotic. Renal; urine out put and renal function reviewed. Patient with RANCHO and nephrology is consulted. Patient will need more fluid. Endorcine: blood glucose is monitored Lines: all lines checked and no evidence of infections Skin: skin care to prevent pressure ulcers per nursing routine care Dispo: ICU Code: Full. Prognosis. Guarded. I spent 40 min of Critical Care time with this patient. It involved decision making of high complexity to assess, manipulate, and support vital organ system failure and/or to prevent further life threatening deterioration of the patient's condition. The time involved in the performance of separately reportable procedures was not counted toward critical care time.
[2018-12-01] MEDS ORDERED: Artificial Tears SOLN 15 ML BOTTLE BOTH EYES PRN ×2 (09:09→14:12)
--- NOTE | 2018-12-01 09:16 | Anesthesia Procedures ---
Date of Encounter: 12/01/18 Time of Encounter: 07:30 Procedures: Anesthesia - Arterial Line Time out performed: Yes Size (Gauge): 20 Length (inches): 1 3/4 Technique Used: sterile prep, guide wire technique, direct puncture technique Post-Procedure: line taped into place Patient tolerated procedure: no complications Complications: none Site: Radial L Vitals: Vital Signs/O2 Sat/Glucose, Most Current Pulse Resp BP Pulse Ox 12/01/18 08:45 19 86/54 93 12/01/18 06:00 116 22 86/54 95 12/01/18 05:20 27 96
[2018-12-01] MEDS ORDERED: *HR* Succinylcholine 200 MG/10 ML VIAL IVP ONE (09:20)
[2018-12-01] MEDS ORDERED: *HR* Etomidate 40 MG/20 ML VIAL IVP ONE (09:20)
[2018-12-01] MEDS ORDERED: Lidocaine -MPF 2% 2 ML VIAL ONE (09:20)
[2018-12-01] MEDS ORDERED: *HR* Propofol 200 MG/20 ML VIAL IVP ONE (09:20)
[2018-12-01] MEDS ORDERED: *HR* Midazolam HCl 2 MG/2 ML VIAL ONE (09:20)
[2018-12-01] MEDS ORDERED: 0.9 % Sodium Chloride 1,000 ML ONE (09:37)
[2018-12-01] MEDS: Dexmedetomidine HCl 400 MCG/100 ML MLS IVC SCH ×5 (09:47→23:54)
[2018-12-01] MEDS ORDERED: *HR* Phenylephrine 10 MG/ML VIAL ONE (09:53)
[2018-12-01] MEDS: FentaNYL (PF) 1,000 MCG in 0.9 % Sodium Chloride 80 ML IVC SCH ×4 (10:00→22:08)
[2018-12-01 10:06] LABS: ABG Base Excess -13 mEq/L (-2 to 3); ABG HCO3 14 mEq/L (21-27); ABG Oxygen Saturation 97 % (95-98); ABG PCO2 35 mmHg (35-45); ABG PH 7.21 pH Units (7.32-7.45); ABG PO2 105 mmHg (85-104); ABG TCO2 15 mEq/L (20-26); Blood Gas PEEP 5 cm H2O
[2018-12-01] MEDS ORDERED: Norepinephrine 4 MG in D5% in Water 250 ML IVC SCH (10:45)
--- NOTE | 2018-12-01 11:13 | General Surgery Consult Note ---
Date of Encounter: 12/01/18 Time of Encounter: 11:07 History of Present Illness Consult date: 12/01/18 Requesting physician: Mickey Dye History of present illness: 63 yo in ICU, intubated and septic requiring Central venous line. No one nicole ilable for consent. Venous access deemed emergent and appropriate by referring physicians as well as myself after reviewing the patient's medical history. With the patient lying supine, the right anterior chest and clavicular area was prepped with chlorhexidine and sterile drapes applied. All whole body drape was used. The surgeon was gowned, gloved, capped, and mask. The patient was placed in Trendelenburg. The patient was appropriately identified to person and the emergent procedure. The accuracy of this information was confirmed by the nursing staff attending this patient. Approximately 5 mL 1% lidocaine was infiltrated into the infraclavicular skin and anterior chest. Using an 18-gauge needle, the right subclavian vein was located. A guidewire was inserted. At no time was there aspirated. The skin tract was incised and dilated. A 16 cm, 3 lumen, 7Fr catheter was advanced over the guidewire to 15 cm. The guidewire was extracted. All 3 ports aspirated easily for blood and were flushed with saline. The catheter was secured to the infraclavicular skin with 3-0 silk. Dry sterile dressing was applied. A stat portable chest x-ray is ordered and pending at the time of this dictation. The imaging will be reviewed on completion. The patient tolerated the insertion well and remained hemodynamically stable/unchanged during the procedure. Past Med Surg Social Fam HX - Past Medical History Medical history: diabetes, renal disease, atrial fibrillation, hyperlipidemia, arthritis, hypertension, pulmonary embolus, other, coronary artery disease, COPD, DVT Additional medical history: R BKA. Vit D Deficiency. Left foot digits amputated Psychiatric history: anxiety, depression - Past Surgical History Surgical History: other Additional surgical history: Left TMA, right BKA - Social History Smoking Status: Current every day smoker Smokeless Tobacco Status: No Alcohol use: none Drug use: none - Family History Mother Family Member Ethnicity: Non- Twin of Family Member: Yes, Identical Living Status: Hx Family Cardiac Disorders: Yes Hx Family Respiratory Disorders: No Hx Family Cancer: Yes (aunt) Hx Family GI Disorders: Yes Hx Family Endocrine Disorder: Yes Hx Family Neurologic Disorders: Yes Hx Family HEENT Disorders: No Hx Family Autoimmune Disorders: No Father Living Status: Hx Family Cardiac Disorders: Yes Hx Family Endocrine Disorder: Yes (diabetes) Brother Living Status: Hx Family Endocrine Disorder: Yes (diabetes) Medications and Allergies Acetaminophen [Tylenol] 1,000 mg PO Q6HR 11/30/18 [History] Atorvastatin Calcium [Lipitor] 20 mg PO DAILY 11/30/18 [History] Cholecalciferol (Vitamin D3) [Vitamin D] 1,000 unit PO DAILY 11/30/18 [History] Clopidogrel Bisulfate [Plavix] 75 mg PO DAILY 11/30/18 [History] Duloxetine HCl [Cymbalta] 60 mg PO DAILY 11/30/18 [History] Fluticasone Propionate [Flovent Diskus] 50 mcg IH DAILY 11/30/18 [History] Fluticasone/Salmeterol [Advair 250-50 Diskus] 1 each IH BID 11/30/18 [History] Furosemide [Lasix] 40 mg PO BID 11/30/18 [History] Gabapentin [Neurontin] 600 mg PO TID 11/30/18 [History] Glimepiride [Amaryl] 2 mg PO 0800 11/30/18 [History] Insulin ASPART [Novolog] 0 unit SQ TID 11/30/18 [History] Insulin DETEMIR [Levemir] 50 unit SQ HS 11/30/18 [History] Insulin Glargine,Hum.rec.anlog [Basaglar Kwikpen U-100] 35 unit SQ BID 11/30/18 [History] Liraglutide [Victoza 2-Zaid] 1.2 mg SQ DAILY 11/30/18 [History] Loratadine [Claritin] 10 mg PO DAILY 11/30/18 [History] Losartan Potassium 50 mg PO DAILY 11/30/18 [History] Metoprolol [Lopressor] 100 mg PO BID 11/30/18 [History] Multivitamin,Stress Formula [Stress Formula] 1 each PO DAILY 11/30/18 [History] Potassium Chloride [K-Tab ER] 60 meq PO DAILY 11/30/18 [History] Rivaroxaban [Xarelto] 15 mg PO 1700 11/30/18 [History] Sertraline [Zoloft] 50 mg PO DAILY 11/30/18 [History] Spironolactone [Aldactone] 25 mg PO DAILY 11/30/18 [History] Umeclidinium [place] [Incruse Ellipta] 62.5 mcg IH DAILY 11/30/18 [History] amLODIPine [Norvasc] 5 mg PO DAILY 11/30/18 [History] Allergy/AdvReac Type Severity Reaction Status Date / Time codeine Allergy See Verified 11/30/18 17:25 Comments latex Allergy See Verified 11/30/18 17:25 Comments Paroxetine [From Paxil] Allergy See Verified 11/30/18 17:25 Comments Penicillins Allergy See Verified 11/30/18 17:25 Comments Review of Systems All systems PM: The remainder of the systems were reviewed and are negative General Surgery Exam Initial Vital Signs Temp Pulse Resp BP Pulse Ox 98.5 F 106 15 101/67 93 12/01/18 00:23 12/01/18 00:23 12/01/18 00:23 12/01/18 00:23 12/01/18 00:23 Exam Initial Vital Signs Temp Pulse Resp BP Pulse Ox 98.5 F 106 15 101/67 93 12/01/18 00:23 12/01/18 00:23 12/01/18 00:23 12/01/18 00:23 12/01/18 00:23 Results - Labs 12/01/18 03:19 12/01/18 03:19 Abnormal lab results WBC 30.8 K/mcL (4.3-11.1) H* D 12/01/18 03:19 Hct 45.3 % (35.3-44.9) H 12/01/18 03:19 MCHC 30.5 g/dL (31.6-35.5) L 12/01/18 03:19 RDW 16.1 % (11.5-14.5) H 12/01/18 03:19 Neutrophils # 28.2 K/mcL (1.6-8.9) H 12/01/18 03:19 Nucleated RBCs/100 WBC 0.1 /100 WBC (0) H 12/01/18 03:19 PT 20.8 Seconds (9.4-12.1) H 12/01/18 03:19 APTT 36.4 Seconds (26.0-36.0) H 12/01/18 03:19 ABG pH 7.21 pH Units (7.32-7.45) L 12/01/18 09:59 ABG pO2 105 mmHg (85-104) H 12/01/18 09:59 ABG HCO3 14 mEq/L (21-27) L 12/01/18 09:59 ABG Total CO2 15 mEq/L (20-26) L 12/01/18 09:59 ABG O2 Saturation 91 % (95-98) L 12/01/18 04:34 ABG Base Excess -13 mEq/L (-2 to 3) L 12/01/18 09:59 Sodium 133 mEq/L (136-145) L 12/01/18 03:19 Carbon Dioxide 16 mEq/L (23-29) L 12/01/18 03:19 BUN 28 mg/dL (8-23) H 12/01/18 03:19 Creatinine 2.40 mg/dL (0.60-1.20) H 12/01/18 03:19 Est GFR ( Amer) 25 (> 60) L 12/01/18 03:19 Est GFR (Non-Af Amer) 20 (> 60) L 12/01/18 03:19 Glucose 201 mg/dL (70-105) H 12/01/18 03:19 POC Glucose 200 mg/dL (70-99) H 12/01/18 04:05 Hemoglobin A1c 8.6 % (-5.6) H 12/01/18 03:19 Calcium 7.6 mg/dL (8.6-10.3) L 12/01/18 03:19 Magnesium 1.4 mg/dL (1.6-2.6) L 12/01/18 03:19 Serum Total Protein 6.1 g/dL (6.4-8.9) L 12/01/18 03:19 Albumin 3.3 g/dL (3.5-5.7) L 12/01/18 03:19 HDL Cholesterol 22 mg/dL (40-59) L 12/01/18 03:19 Urine Clarity Cloudy (Clear) A 12/01/18 04:23 Urine Blood Moderate (Negative) H 12/01/18 04:23 Urine Nitrite Positive (Negative) A 12/01/18 04:23 Ur Leukocyte Esterase Large (Negative) H 12/01/18 04:23 Urine Microscopic WBC 3-5 per hpf (0-3) H 12/01/18 04:23 Ur Squamous Epith Cells Many per lpf (None-Few) H 12/01/18 04:23 Urine Bacteria Moderate per hpf (None-Few) H 12/01/18 04:23 Diabetes panel 12/01/18 12/01/18 Range/Units 03:19 03:19 Sodium 133 L (136-145) mEq/L Potassium 4.2 (3.5-5.1) mEq/L Chloride 107 (98-107) mEq/L Carbon Dioxide 16 L (23-29) mEq/L BUN 28 H (8-23) mg/dL Creatinine 2.40 H (0.60-1.20) mg/dL Glucose 201 H (70-105) mg/dL Hemoglobin A1c 8.6 H ( - 5.6) % Calcium 7.6 L (8.6-10.3) mg/dL AST 17 (13-39) Units/L ALT 9 (7-52) Units/L Alkaline Phosphatase 81 (34-104) Units/L Albumin 3.3 L (3.5-5.7) g/dL Triglycerides 86 (< 150) mg/dL HDL Cholesterol 22 L (40-59) mg/dL Calcium panel 12/01/18 Range/Units 03:19 Calcium 7.6 L (8.6-10.3) mg/dL Phosphorus 3.4 (2.7-4.5) mg/dL Albumin 3.3 L (3.5-5.7) g/dL Pituitary panel 12/01/18 Range/Units 03:19 Sodium 133 L (136-145) mEq/L Potassium 4.2 (3.5-5.1) mEq/L Chloride 107 (98-107) mEq/L Carbon Dioxide 16 L (23-29) mEq/L BUN 28 H (8-23) mg/dL Creatinine 2.40 H (0.60-1.20) mg/dL Glucose 201 H (70-105) mg/dL Calcium 7.6 L (8.6-10.3) mg/dL Adrenal panel 12/01/18 Range/Units 03:19 Sodium 133 L (136-145) mEq/L Potassium 4.2 (3.5-5.1) mEq/L Chloride 107 (98-107) mEq/L Carbon Dioxide 16 L (23-29) mEq/L BUN 28 H (8-23) mg/dL Creatinine 2.40 H (0.60-1.20) mg/dL Glucose 201 H (70-105) mg/dL Calcium 7.6 L (8.6-10.3) mg/dL Total Bilirubin 0.8 (0.3-1.0) mg/dL AST 17 (13-39) Units/L ALT 9 (7-52) Units/L Alkaline Phosphatase 81 (34-104) Units/L Albumin 3.3 L (3.5-5.7) g/dL All other labs normal. Consult Discharge Plan - Plan Referrals: Kelly Cardozo RN [Primary Care Provider] -
[2018-12-01] MEDS ORDERED: Artificial Tears SOLN 15 ML BOTTLE BOTH EYES SCH (12:00)
--- NOTE | 2018-12-01 13:45 | Electrocardiograph Report ---
[address] [place], [place] [address] Test Date: 2018-12-01 Pat Name: Geovanna Ness Department: 115 Room: [facility] Gender: F [employer]er: : 1955 Requested By: Olivier Alvarado Order Number: [id number] Reading MD: Pedrito Sapp Measurements Intervals Amorita Rate: 135 P: PA: 0 QRS: 100 QRSD: 98 T: 87 QT: 314 QTc: 393 Interpretive Statements ATRIAL FIBRILLATION WITH RAPID VENTRICULAR RESPONSE BORDERLINE RIGHT AXIS DEVIATION LOW QRS VOLTAGE IN EXTREMITY LEADS Poor R wave progression Electronically Signed On 12-01-2018 13:43:56 EDT by Pedrito Sapp
[2018-12-01 14:27] LABS: Enterococcus by PCR Not Detected (Not Detect); Staphylococcus aureus by PCR Not Detected (Not Detect); Staphylococcus by PCR Not Detected (Not Detect); blaKPC Carbapenem-Resist Gene Not Detected (Not Detect)
[2018-12-01 14:28] LABS: Acinetobacter baumannii by PCR Not Detected (Not Detect); Candida albicans by PCR Not Detected (Not Detect); Candida glabrata by PCR Not Detected (Not Detect); Candida krusei by PCR Not Detected (Not Detect); Candida parapsilosis by PCR Not Detected (Not Detect); Candida tropicalis by PCR Not Detected (Not Detect); Enterobacter cloacae Cmplx PCR Not Detected (Not Detect); Escherichia coli by PCR DETECTED (Not Detect); Klebsiella oxytoca by PCR Not Detected (Not Detect); Klebsiella pneumoniae by PCR Not Detected (Not Detect); Proteus by PCR Not Detected (Not Detect); Pseudomonas aeruginosa by PCR Not Detected (Not Detect); Serratia marcescens by PCR Not Detected (Not Detect); Streptococcus agalactiae(B)PCR Not Detected (Not Detect); Streptococcus by PCR Not Detected (Not Detect); Streptococcus pneumoniae PCR Not Detected (Not Detect); Streptococcus pyogenes (A) PCR Not Detected (Not Detect)
[2018-12-01] MEDS: 0.9 % Sodium Chloride 1,000 ML IVC SCH ×4 (15:28→17:25)
[2018-12-01] MEDS: Artificial Tears SOLN 15 ML BOTTLE BOTH EYES SCH ×3 (15:31→23:54)
[2018-12-01] MEDS: Norepinephrine 4 MG in D5% in Water 250 ML IVC SCH ×2 (15:53→20:40)
[2018-12-01] MEDS: Heparin 25,000 UNIT/250 ML D5W 25,000 UNIT/250 ML IV.SOLN IVC SCH (16:28)
[2018-12-01] MEDS: Cefepime HCl 2,000 MG in Water for inj. (sterile) 20 ML IVP SCH (17:26)
[2018-12-01] MEDS: Insulin LISPRO 300 UNITS/3 ML VIAL SQ SCH ×2 (17:55→23:55)
[2018-12-01] MEDS: Chlorhexidine Rinse 15 ML MOUTHWASH MM SCH (20:45)
[2018-12-01] MEDS ORDERED: Chlorhexidine Rinse 15 ML MOUTHWASH MM SCH (21:00)
[2018-12-01] MEDS ORDERED: Insulin DETEMIR 100 UNIT/ML X5UNITS SQ SCH ×2 (21:00)
[2018-12-01] MEDS: Budesonide/Formoterol 160/4.5 1 PUFF INH IH SCH (21:34)
[2018-12-01] MEDS ORDERED: Budesonide/Formoterol 160/4.5 1 PUFF INH IH SCH (22:00)
[2018-12-01] MEDS ORDERED: Amiodarone Premix 360 MG/200 ML BAG IVC ONE (22:50)
[2018-12-01] MEDS ORDERED: Amiodarone Premix 150 MG/100 ML BAG IVPB ONE (22:50)
[2018-12-02] MEDS: Dexmedetomidine HCl 400 MCG/100 ML MLS IVC SCH ×6 (03:20→21:32)
[2018-12-02] MEDS: Norepinephrine 4 MG in D5% in Water 250 ML IVC SCH ×3 (03:21→19:44)
[2018-12-02] MEDS: 0.9 % Sodium Chloride 1,000 ML IVC SCH ×3 (03:21→07:52)
[2018-12-02] MEDS: Levalbuterol Neb 1.25 MG/3 ML IH SCH ×4 (03:36→21:45)
[2018-12-02] MEDS: Artificial Tears SOLN 15 ML BOTTLE BOTH EYES SCH ×5 (04:13→21:34)
[2018-12-02 04:31] LABS: ABG Base Excess -16 mEq/L (-2 to 3); ABG HCO3 13 mEq/L (21-27); ABG Oxygen Saturation 82 % (95-98); ABG PCO2 42 mmHg (35-45); ABG PH 7.12 pH Units (7.32-7.45); ABG PO2 61 mmHg (85-104); ABG TCO2 15 mEq/L (20-26); Blood Gas Modality ASSIST CONTROL; Blood Gas PEEP 5 cm H2O; Blood Gas VT 550 cc
[2018-12-02 04:39] LABS: Basophils # 0.1 K/mcL (0.0-0.2); Basophils % 0.3 %; Eosinophils % 0.1 %; Hematocrit 43.1 % (35.3-44.9); Hemoglobin 12.6 g/dL (11.5-15.4); Immature Granulocytes % 1.6 % (0-4); Lymphocytes # 0.7 K/mcL (0.6-4.6); Lymphocytes % 3.9 %; Mean Corpuscular HGB Conc 29.2 g/dL (31.6-35.5); Mean Corpuscular Hemoglobin 28.1 pg (28.0-33.3); Mean Corpuscular Volume 96.2 fL (83.0-100.0); Monocytes # 0.9 K/mcL (0.0-1.3); Monocytes % 5.1 %; Neutrophils # 15.3 K/mcL (1.6-8.9); Nucleated Red Blood Cells 0.1 /100 WBC (0); Platelet Count 176 K/mcL (140-400); Red Blood Count 4.48 M/mcL (3.82-4.97); Red Cell Distribution Width 16.5 % (11.5-14.5); White Blood Count 17.2 K/mcL (4.3-11.1)
[2018-12-02] MEDS: Amiodarone Premix 360 MG/200 ML BAG IVC SCH ×2 (04:53→17:30)
[2018-12-02 04:59] LABS: Calcium 6.3 mg/dL (8.6-10.3); Magnesium 1.4 mg/dL (1.6-2.6); Phosphorous 5.1 mg/dL (2.7-4.5); Potassium 4.8 mEq/L (3.5-5.1)
[2018-12-02] MEDS: Insulin LISPRO 300 UNITS/3 ML VIAL SQ SCH ×2 (05:05→11:49)
[2018-12-02] MEDS: Cefepime HCl 2,000 MG in Water for inj. (sterile) 20 ML IVP SCH (05:07)
[2018-12-02] MEDS ORDERED: Sodium Bicarbonate 75 MEQ in 0.45 % Sodium Chloride 1,000 ML IVC SCH (05:45)
[2018-12-02] MEDS: Heparin 25,000 UNIT/250 ML D5W 25,000 UNIT/250 ML IV.SOLN IVC SCH ×2 (06:07→23:52)
[2018-12-02 06:15] LABS: ABG Base Excess -15 mEq/L (-2 to 3); ABG HCO3 12 mEq/L (21-27); ABG Oxygen Saturation 90 % (95-98); ABG PCO2 34 mmHg (35-45); ABG PH 7.17 pH Units (7.32-7.45); ABG PO2 72 mmHg (85-104); ABG TCO2 14 mEq/L (20-26); Blood Gas Modality ASSIST CONTROL; Blood Gas PEEP 5 cm H2O; Blood Gas VT 550 cc
[2018-12-02] MEDS ORDERED: Acetaminophen IV 1,000 MG/100 ML INFUS..BTL IVPB ONE (06:34)
--- NOTE | 2018-12-02 06:55 | Pulmonology Progress Note ---
<Rufina Heredia - Last Filed: 12/02/18 16:03> Date of Encounter: 12/02/18 Time of Encounter: 06:55 Assessment and Plan (1) Acute and chronic respiratory failure with hypoxia Current Visit: Yes Status: Acute Due to hemodynamic instability with septic stone Currently intubated and sedated with Fentanyl and Precedex Continue scheduled bronchodilators and Symbicort - pt does have hx of COPD and tobacco abuse Continue to monitor closely in the ICU GI prophylaxis with daily Protonix IV (2) Metabolic acidosis Current Visit: Yes Status: Acute ABG showed pH of 7.17 this am with pCO2 34, HCO3 12 Vent settings changed and repeat ABG pending for noon Lactic acid normal at 1.5x2 Anion gap 8 Beta-hydroxybutyrate mildly elevated at 0.39 Likely secondary to worsening renal function Nephro consulted Bicarb drip running (3) Sepsis Current Visit: Yes Status: Acute BCx x2 positive for GNR PCR shows E. coli Likely secondary to septic stone with E. coli UTI Dr. Salguero with stent placement 12/01 Pt on IV Cefepime WBC decreased today to 17.2 Pt remains febrile Pt hypotensive with Levophed running Dr. Alejandro placed subclavian central line due to poor access of IJ and femorals Qualifiers: Sepsis type: sepsis due to unspecified organism Qualified Code(s): A41.9 - Sepsis, unspecified organism (4) Atrial fibrillation with RVR Current Visit: Yes Status: Acute Initially placed on Cardizem drip DC'd due to pts hypotension Now on amiodarone drip HR continues to be in the 120s Fever could be a contributing factor to tachycardia Continue to monitor and once BP stabilizes add Cardizem or beta blockers Heparin ggt Patient's heart rate increased to the 150s to 160s and a 150 mg amiodarone bolus was given in addition to the drip This did not significantly decrease patient's heart rate, therefore we will add a one-time dose of 5mg Lopressor Stat echo ordered and pending as previous EKG was done in July of 2017 (5) Acute kidney injury superimposed on CKD Current Visit: Yes Status: Acute Baseline Cre 1.1 Continues to increase, today at 2.78 Suspect relation to septic stone Borderline oliguria - 250mls out yesterday and 350mls so far today Consultation to nephro placed - appreciate recommendations Continue to monitor and avoid nephrotoxic drugs Per nephro - repeat bmp at noon and if worsening renal function will likely start kimmie (6) Ureteral calculi Current Visit: Yes Status: Acute As seen on CT abd and pelvis Urology following and placed a stent on 12/01 (7) UTI (urinary tract infection) Current Visit: Yes Status: Acute E. 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 Metabolic acidosis likely secondary to sepsis. Gap is 8 therefore not likely DKA. Pt has not been making much urine and is borderline oliguric. Her renal function continues to decline with Creatinine 2.78, will consult nephrology today. WBC is decreasing, today it is 17.2. BCx x2 growing E. Coli. CXR shows worsening diffuse interstitial pulmonary edema in the right lung with mild interstitial edema in the mid left lung, likely secondary to high volume of fluids given to her. Will monitor for development of ARDS. Continues to be in afib with RVR, cardizem was switched to amiodarone due to pts low blood pressures. Rate had been better controlled in the 120s but then increased to 150-160 and an amiodarone bolus was ordered. Pt is on Levophed for management of her hypotension. Pt still having fevers overnight even with administration of tylenol and IV tylenol was ordered for further treatment of her elevated temps. Dr. Talbot suggests a repeat BMP at noon and if her renal function has not improved they will likely start the patient on kimmie. Objective PUL Vital signs: Last Vital Signs Temp 101.8 F H 07/24/19 04:06 Pulse 132 12/02/18 06:00 Resp 19 12/02/18 06:00 BP 116/63 12/02/18 06:00 Pulse Ox 94 12/02/18 06:00 General appearance: asleep Eyes: nonicteric Effort: normal Auscultation: bilateral: clear Cardiovascular: other (tachycardic, irregular rhythm) Gastrointestinal: soft, non-tender Integumentary: normal Extremities: pink and warm, edema (trace), other (Right BKA, left foot toe amputation x5) pupils equal and round Ventilator Settings Ventilator Settings: Ventilator Settings, Last 8 Hours Ventilator Tidal Volume 550 Setting Ventilator Tidal Volume 550 Setting Ventilator Tidal Volume 550 Setting Ventilator Tidal Volume 550 Setting Ventilator Tidal Volume 550 Setting Ventilator Tidal Volume 550 Setting Ventilator Tidal Volume 550 Setting Ventilator Tidal Volume 550 Setting Ventilator Tidal Volume 550 Setting Ventilator Tidal Volume 550 Setting Ventilator Tidal Volume 550 Setting Ventilator Tidal Volume 550 Setting Ventilator Respiratory Rate 12 Setting Ventilator Respiratory Rate 12 Setting Ventilator Respiratory Rate 12 Setting Ventilator Respiratory Rate 12 Setting Ventilator Respiratory Rate 12 Setting Ventilator Respiratory Rate 12 Setting Ventilator Respiratory Rate 12 Setting Ventilator Respiratory Rate 12 Setting Ventilator Respiratory Rate 12 Setting Ventilator Respiratory Rate 12 Setting Ventilator Respiratory Rate 12 Setting Ventilator Respiratory Rate 12 Setting Actual Respiratory Rate 19 Actual Respiratory Rate 19 Actual Respiratory Rate 19 Actual Respiratory Rate 20 Actual Respiratory Rate 19 Actual Respiratory Rate 19 Actual Respiratory Rate 18 Actual Respiratory Rate 19 Actual Respiratory Rate 18 Actual Respiratory Rate 19 Positive End Expiratory 5 Pressure Positive End Expiratory 5 Pressure Positive End Expiratory 5 Pressure Positive End Expiratory 5 Pressure Positive End Expiratory 5 Pressure Positive End Expiratory 5 Pressure Positive End Expiratory 5 Pressure Positive End Expiratory 5 Pressure Positive End Expiratory 5 Pressure Positive End Expiratory 5 Pressure Positive End Expiratory 5 Pressure Positive End Expiratory 5 Pressure Peak Inspiratory Airway 13 Pressure Peak Inspiratory Airway 12 Pressure Peak Inspiratory Airway 11 Pressure Peak Inspiratory Airway 8 Pressure Peak Inspiratory Airway 10 Pressure Peak Inspiratory Airway 9 Pressure Peak Inspiratory Airway 12 Pressure Peak Inspiratory Airway 7.1 Pressure Peak Inspiratory Airway 12 Pressure Peak Inspiratory Airway 6.9 Pressure Results - Laboratory Findings CBC and BMP: 12/02/18 04:21 12/02/18 12:01 ABG ABG pH 7.17 pH Units (7.32-7.45) L* 12/02/18 06:07 ABG pCO2 34 mmHg (35-45) L 12/02/18 06:07 ABG pO2 72 mmHg (85-104) L 12/02/18 06:07 ABG O2 Saturation 90 % (95-98) L 12/02/18 06:07 PT/INR, D-dimer PT 20.8 Seconds (9.4-12.1) H 12/01/18 03:19 Abnormal lab findings: Abnormal lab results WBC 17.2 K/mcL (4.3-11.1) H 12/02/18 04:21 Hct 45.3 % (35.3-44.9) H 12/01/18 03:19 MCHC 29.2 g/dL (31.6-35.5) L 12/02/18 04:21 RDW 16.5 % (11.5-14.5) H 12/02/18 04:21 Neutrophils # 15.3 K/mcL (1.6-8.9) H 12/02/18 04:21 Nucleated RBCs/100 WBC 0.1 /100 WBC (0) H 12/02/18 04:21 PT 20.8 Seconds (9.4-12.1) H 12/01/18 03:19 APTT 36.4 Seconds (26.0-36.0) H 12/01/18 03:19 ABG pH 7.17 pH Units (7.32-7.45) L* 12/02/18 06:07 ABG pCO2 34 mmHg (35-45) L 12/02/18 06:07 ABG pO2 72 mmHg (85-104) L 12/02/18 06:07 ABG HCO3 12 mEq/L (21-27) L 12/02/18 06:07 ABG Total CO2 14 mEq/L (20-26) L 12/02/18 06:07 ABG O2 Saturation 90 % (95-98) L 12/02/18 06:07 ABG Base Excess -15 mEq/L (-2 to 3) L 12/02/18 06:07 Sodium 134 mEq/L (136-145) L 12/02/18 04:21 Chloride 111 mEq/L (98-107) H 12/02/18 04:21 Carbon Dioxide 15 mEq/L (23-29) L 12/02/18 04:21 BUN 40 mg/dL (8-23) H 12/02/18 04:21 Creatinine 2.78 mg/dL (0.60-1.20) H 12/02/18 04:21 Est GFR ( Amer) 21 (> 60) L 12/02/18 04:21 Est GFR (Non-Af Amer) 17 (> 60) L 12/02/18 04:21 Glucose 300 mg/dL (70-105) H 12/02/18 04:21 POC Glucose 289 mg/dL (70-99) H 12/01/18 23:42 Hemoglobin A1c 8.6 % (-5.6) H 12/01/18 03:19 Calcium 6.3 mg/dL (8.6-10.3) L 12/02/18 04:21 Phosphorus 5.1 mg/dL (2.7-4.5) H 12/02/18 04:21 Magnesium 1.4 mg/dL (1.6-2.6) L 12/02/18 04:21 Serum Total Protein 6.1 g/dL (6.4-8.9) L 12/01/18 03:19 Albumin 3.3 g/dL (3.5-5.7) L 12/01/18 03:19 HDL Cholesterol 22 mg/dL (40-59) L 12/01/18 03:19 Urine Clarity Cloudy (Clear) A 12/01/18 04:23 Urine Blood Moderate (Negative) H 12/01/18 04:23 Urine Nitrite Positive (Negative) A 12/01/18 04:23 Ur Leukocyte Esterase Large (Negative) H 12/01/18 04:23 Urine Microscopic WBC 3-5 per hpf (0-3) H 12/01/18 04:23 Ur Squamous Epith Cells Many per lpf (None-Few) H 12/01/18 04:23 Urine Bacteria Moderate per hpf (None-Few) H 12/01/18 04:23 E. coli (PCR) DETECTED (Not Detect) A 12/01/18 03:50 - Microbiology Findings Microbiology Findings: Microbiology, Last 48 Hours 12/01/18 08:11 Surgical Biopsy Culture - Preliminary Left Kidney 12/01/18 08:11 Anaerobic Culture - Preliminary Left Kidney Culture is incubating. 12/01/18 03:59 Blood Culture - Preliminary Peripheral Venipuncture Gram Negative Daniel 12/01/18 03:50 Blood Culture - Preliminary Peripheral Venipuncture Gram Negative Dainel 12/01/18 04:23 Urine Culture - Preliminary Urine,Clean Catch Culture is incubating. - Clinical Findings Intake & Output: Intake & Output 12/01/18 12/01/18 12/02/18 15:59 23:59 07:59 Intake Total 1987 2320 / 2320 Output Total 0 / 250 250 / 250 200 / 200 Balance 194 / 1738 1424 / 1738 2120 / 2120 Weight 113.7 kg Consult Discharge Plan - Plan Referrals: Kelly Cardozo RN [Primary Care Provider] - <Tori Real - Last Filed: 12/03/18 16:12> Date of Encounter: 12/02/18 Objective PUL Vital signs: Last Vital Signs Temp 102.9 F H 12/02/18 08:00 Pulse 133 12/02/18 08:00 Resp 19 12/02/18 08:00 BP 107/58 12/02/18 08:00 Pulse Ox 94 12/02/18 08:00 Ventilator Settings Ventilator Settings: Ventilator Settings, Last 8 Hours Ventilator Tidal Volume 550 Setting Ventilator Tidal Volume 550 Setting Ventilator Tidal Volume 550 Setting Ventilator Tidal Volume 550 Setting Ventilator Tidal Volume 550 Setting Ventilator Tidal Volume 550 Setting Ventilator Tidal Volume 550 Setting Ventilator Tidal Volume 550 Setting Ventilator Tidal Volume 550 Setting Ventilator Tidal Volume 550 Setting Ventilator Respiratory Rate 12 Setting Ventilator Respiratory Rate 12 Setting Ventilator Respiratory Rate 12 Setting Ventilator Respiratory Rate 12 Setting Ventilator Respiratory Rate 12 Setting Ventilator Respiratory Rate 12 Setting Ventilator Respiratory Rate 12 Setting Ventilator Respiratory Rate 12 Setting Ventilator Respiratory Rate 12 Setting Ventilator Respiratory Rate 12 Setting Ventilator Respiratory Rate 12 Setting Actual Respiratory Rate 18 Actual Respiratory Rate 16 Actual Respiratory Rate 19 Actual Respiratory Rate 19 Actual Respiratory Rate 19 Actual Respiratory Rate 20 Actual Respiratory Rate 19 Actual Respiratory Rate 19 Actual Respiratory Rate 18 Positive End Expiratory 8 Pressure Positive End Expiratory 8 Pressure Positive End Expiratory 5 Pressure Positive End Expiratory 5 Pressure Positive End Expiratory 5 Pressure Positive End Expiratory 5 Pressure Positive End Expiratory 5 Pressure Positive End Expiratory 5 Pressure Positive End Expiratory 5 Pressure Positive End Expiratory 5 Pressure Positive End Expiratory 5 Pressure Peak Inspiratory Airway 13 Pressure Peak Inspiratory Airway 13 Pressure Peak Inspiratory Airway 13 Pressure Peak Inspiratory Airway 12 Pressure Peak Inspiratory Airway 11 Pressure Peak Inspiratory Airway 8 Pressure Peak Inspiratory Airway 10 Pressure Peak Inspiratory Airway 9 Pressure Peak Inspiratory Airway 12 Pressure Results - Laboratory Findings CBC and BMP: 12/03/18 04:00 12/03/18 04:00 ABG ABG pH 7.17 pH Units (7.32-7.45) L* 12/02/18 06:07 ABG pCO2 34 mmHg (35-45) L 12/02/18 06:07 ABG pO2 72 mmHg (85-104) L 12/02/18 06:07 ABG O2 Saturation 90 % (95-98) L 12/02/18 06:07 PT/INR, D-dimer PT 20.8 Seconds (9.4-12.1) H 12/01/18 03:19 Abnormal lab findings: Abnormal lab results WBC 17.2 K/mcL (4.3-11.1) H 12/02/18 04:21 Hct 45.3 % (35.3-44.9) H 12/01/18 03:19 MCHC 29.2 g/dL (31.6-35.5) L 12/02/18 04:21 RDW 16.5 % (11.5-14.5) H 12/02/18 04:21 Neutrophils # 15.3 K/mcL (1.6-8.9) H 12/02/18 04:21 Nucleated RBCs/100 WBC 0.1 /100 WBC (0) H 12/02/18 04:21 PT 20.8 Seconds (9.4-12.1) H 12/01/18 03:19 APTT 36.4 Seconds (26.0-36.0) H 12/01/18 03:19 ABG pH 7.17 pH Units (7.32-7.45) L* 12/02/18 06:07 ABG pCO2 34 mmHg (35-45) L 12/02/18 06:07 ABG pO2 72 mmHg (85-104) L 12/02/18 06:07 ABG HCO3 12 mEq/L (21-27) L 12/02/18 06:07 ABG Total CO2 14 mEq/L (20-26) L 12/02/18 06:07 ABG O2 Saturation 90 % (95-98) L 12/02/18 06:07 ABG Base Excess -15 mEq/L (-2 to 3) L 12/02/18 06:07 Sodium 134 mEq/L (136-145) L 12/02/18 04:21 Chloride 111 mEq/L (98-107) H 12/02/18 04:21 Carbon Dioxide 15 mEq/L (23-29) L 12/02/18 04:21 BUN 40 mg/dL (8-23) H 12/02/18 04:21 Creatinine 2.78 mg/dL (0.60-1.20) H 12/02/18 04:21 Est GFR ( Amer) 21 (> 60) L 12/02/18 04:21 Est GFR (Non-Af Amer) 17 (> 60) L 12/02/18 04:21 Glucose 300 mg/dL (70-105) H 12/02/18 04:21 POC Glucose 289 mg/dL (70-99) H 12/01/18 23:42 Hemoglobin A1c 8.6 % (-5.6) H 12/01/18 03:19 Calcium 6.3 mg/dL (8.6-10.3) L 12/02/18 04:21 Phosphorus 5.1 mg/dL (2.7-4.5) H 12/02/18 04:21 Magnesium 1.4 mg/dL (1.6-2.6) L 12/02/18 04:21 Serum Total Protein 6.1 g/dL (6.4-8.9) L 12/01/18 03:19 Albumin 3.3 g/dL (3.5-5.7) L 12/01/18 03:19 HDL Cholesterol 22 mg/dL (40-59) L 12/01/18 03:19 Urine Clarity Cloudy (Clear) A 12/01/18 04:23 Urine Blood Moderate (Negative) H 12/01/18 04:23 Urine Nitrite Positive (Negative) A 12/01/18 04:23 Ur Leukocyte Esterase Large (Negative) H 12/01/18 04:23 Urine Microscopic WBC 3-5 per hpf (0-3) H 12/01/18 04:23 Ur Squamous Epith Cells Many per lpf (None-Few) H 12/01/18 04:23 Urine Bacteria Moderate per hpf (None-Few) H 12/01/18 04:23 E. coli (PCR) DETECTED (Not Detect) A 12/01/18 03:50 - Microbiology Findings Microbiology Findings: Microbiology, Last 48 Hours 12/02/18 07:08 Blood Culture - Preliminary Peripheral Venipuncture Culture is incubating and being continuously monitored for growth. Final report to follow. 12/02/18 07:08 Blood Culture - Preliminary Peripheral Venipuncture Culture is incubating and being continuously monitored for growth. Final report to follow. 12/01/18 03:50 Blood Culture - Preliminary Peripheral Venipuncture Gram Negative Daniel 12/01/18 04:23 Urine Culture - Preliminary Urine,Clean Catch Gram Negative Daniel 12/01/18 08:11 Surgical Biopsy Culture - Preliminary Left Kidney 12/01/18 08:11 Anaerobic Culture - Preliminary Left Kidney Culture is incubating. 12/01/18 03:59 Blood Culture - Preliminary Peripheral Venipuncture Gram Negative Daniel - Clinical Findings Intake & Output: Intake & Output 12/01/18 12/02/18 12/02/18 23:59 07:59 15:59 Intake Total 1674 / 1988 7820 / 7820 Output Total 250 / 250 350 / 350 Balance 1424 / 1738 7470 / 7470 Weight 113.7 kg - Attending Attestation I examined this patient and my medical decision-making was reviewed with the Resident Physician. I agree with the documented findings, disposition and treatment plan as described except to the extent set forth below. Patient seen and examined. Labs, radiology, chart personally reviewed. Agree with resident's history and physical, assessment, plan with following comments: [employer] DEAN: Patient does not follows commands, he should not remain on sedation for the vent synchrony. Pulmonary: Acceptable oxygenation and ventilation and Ppl is less than 20 and increased PEEP for better oxygenation and wean off FiO2 as tolerated. Review chest x-ray which is most likely evidence of pulmonary edema with fluid resuscitation, however ARDS like picture in the differential diagnosis, however with the low plateau pressure and acute kidney injury with fluid resuscitation, most likely is more volume overload. Unfortunately patient is not tolerating diuresis secondary to her hypotension and shock.. Cardiovascular: A.fib with RVR and shock which his septic in nature and patient is being treated for septic shock. Anticoagulation and amiodarone for the A. fi b. GI: Nutrition per dietary and GI prophylaxis per routine Heme: DVT prophylaxis per routine ID: Continue antibiotics and plan to de-escalation and she has fever and need to follow-up on the culture and sensitivity to adjust antibiotics. Renal; urine out put and renal function reviewed. Discussed with the nephrology and I feel strongly that patient will need renal replacement therapy soon. Amy ent has metabolic acidosis and she has been on bicarbonate drip. Endorcine: blood glucose is monitored Lines: all lines checked and no evidence of infections Skin: skin care to prevent pressure ulcers per nursing routine care Dispo: Code: Full. Prognosis. Guarded Family has been updated. I spent 40 min of Critical Care time with this patient. It involved decision making of high complexity to assess, manipulate, and support vital organ system failure and/or to prevent further life threatening deterioration of the patient's condition. The time involved in the performance of separately reporta ble procedures was not counted toward critical care time.
[2018-12-02] MEDS ORDERED: Calcium Gluconate 2,000 MG in 0.9 % Sodium Chloride 100 ML IVPB ONE (08:22)
[2018-12-02] MEDS ORDERED: Pantoprazole 40 MG VIAL IVP SCH (09:00)
--- NOTE | 2018-12-02 09:24 | Urology Progress Note ---
<Lakshmi Zepeda N - Last Filed: 12/02/18 09:22> Date of Encounter: 12/02/18 Time of Encounter: 08:00 - Assessment and Plan (1) Hydronephrosis Current Visit: Yes Status: Acute Qualifiers: Hydronephrosis type: with ureteral calculous obstruction Qualified Code(s): N13.2 - Hydronephrosis with renal and ureteral calculous obstruction (2) Sepsis Current Visit: Yes Status: Acute Assessment and plan: Patient is a 63-year-old female who presents with sepsis and obstructing left ureteral calculi. Vital signs are stable, although, patient is tachycardic and febrile to 102.9. Preliminary blood and urine cultures are positive for gram- negative rods. Patient is receiving IV cefepime. Qualifiers: Sepsis type: sepsis due to unspecified organism Qualified Code(s): A41.9 - Sepsis, unspecified organism (3) Ureteral calculi Current Visit: Yes Status: Acute Assessment and plan: Patient is a 63-year-old female who presents one day status post cystoscopy, left retrograde pyelogram and left ureteral stent placement. Patient with proximal ureteral calculi and sepsis. Patient has undergone urinary diversion with ureteral stent placement, and she currently has an indwelling Lama catheter that is draining sufficiently. Appreciate medical management per critical care team. Urology will continue to follow. Progress Note Narrative: POD #1. Patient seen and examined lying in bed in no apparent distress. Patient's nurse is at bedside. Lama catheter indwelling and draining transparent, dark yellow urine with scant sediment into bedside bag. Objective Initial Vital Signs Temp Pulse Resp BP Pulse Ox 98.5 F 106 15 101/67 93 12/01/18 00:23 12/01/18 00:23 12/01/18 00:23 12/01/18 00:23 12/01/18 00:23 - General physical appearance Present: no distress, no pain - Respiratory Present: normal expansion, other (Patient being mechanically ventilated) - Abdomen Present: soft. Absent: distended - Genitourinary Urine Appearance: Present: Clear, Sediment - Integumentary Present: no rash, no abnormal pigmentation - Musculoskeletal Present: normal posture - Psychiatric Present: other (Patient is sedated and mechanically ventilated) - Labs 12/02/18 04:21 12/02/18 04:21 Diabetes panel 12/02/18 Range/Units 04:21 Sodium 134 L (136-145) mEq/L Potassium 4.8 (3.5-5.1) mEq/L Chloride 111 H (98-107) mEq/L Carbon Dioxide 15 L (23-29) mEq/L BUN 40 H (8-23) mg/dL Creatinine 2.78 H (0.60-1.20) mg/dL Glucose 300 H (70-105) mg/dL Calcium 6.3 L (8.6-10.3) mg/dL Calcium panel 12/02/18 Range/Units 04:21 Calcium 6.3 L (8.6-10.3) mg/dL Phosphorus 5.1 H (2.7-4.5) mg/dL Pituitary panel 12/02/18 Range/Units 04:21 Sodium 134 L (136-145) mEq/L Potassium 4.8 (3.5-5.1) mEq/L Chloride 111 H (98-107) mEq/L Carbon Dioxide 15 L (23-29) mEq/L BUN 40 H (8-23) mg/dL Creatinine 2.78 H (0.60-1.20) mg/dL Glucose 300 H (70-105) mg/dL Calcium 6.3 L (8.6-10.3) mg/dL Adrenal panel 12/02/18 Range/Units 04:21 Sodium 134 L (136-145) mEq/L Potassium 4.8 (3.5-5.1) mEq/L Chloride 111 H (98-107) mEq/L Carbon Dioxide 15 L (23-29) mEq/L BUN 40 H (8-23) mg/dL Creatinine 2.78 H (0.60-1.20) mg/dL Glucose 300 H (70-105) mg/dL Calcium 6.3 L (8.6-10.3) mg/dL Consult Discharge Plan - Plan Referrals: Kelly Cardozo RN [Primary Care Provider] - <Manan Salguero - Last Filed: 12/03/18 07:54> Date of Encounter: 12/03/18 - Assessment and Plan (1) Ureteral calculi Current Visit: Yes Status: Acute Assessment and plan: Agree with physician assistance assessment and plan. Patient remains critical but stable overnight. Remains on Precedex. Urine output has decreased but appearance of urine has improved. She remains intubated. No further intervention from the urology service at this time. If she recovers, she will require a outpatient ureteroscopic stone extraction. We will continue to follow. (2) Hydronephrosis Current Visit: Yes Status: Acute Qualifiers: Hydronephrosis type: with ureteral calculous obstruction Qualified Code(s): N13.2 - Hydronephrosis with renal and ureteral calculous obstruction (3) Sepsis Current Visit: Yes Status: Acute Qualifiers: Sepsis type: sepsis due to unspecified organism Qualified Code(s): A41.9 - Sepsis, unspecified organism Objective Initial Vital Signs Temp Pulse Resp BP Pulse Ox 98.5 F 106 15 101/67 93 12/01/18 00:23 12/01/18 00:23 12/01/18 00:23 12/01/18 00:23 12/01/18 00:23 - Labs 12/03/18 04:00 12/03/18 04:00 Diabetes panel 12/02/18 12/03/18 Range/Units 12:01 04:00 Sodium 135 L 134 L (136-145) mEq/L Potassium 4.4 3.6 (3.5-5.1) mEq/L Chloride 106 105 (98-107) mEq/L Carbon Dioxide 17 L 19 L (23-29) mEq/L BUN 41 H 42 H (8-23) mg/dL Creatinine 2.76 H 2.65 H (0.60-1.20) mg/dL Glucose 365 H 161 H (70-105) mg/dL Calcium 6.7 L 6.3 L (8.6-10.3) mg/dL Calcium panel 12/02/18 12/03/18 Range/Units 12:01 04:00 Calcium 6.7 L 6.3 L (8.6-10.3) mg/dL Phosphorus 5.5 H (2.7-4.5) mg/dL Pituitary panel 12/02/18 12/03/18 Range/Units 12:01 04:00 Sodium 135 L 134 L (136-145) mEq/L Potassium 4.4 3.6 (3.5-5.1) mEq/L Chloride 106 105 (98-107) mEq/L Carbon Dioxide 17 L 19 L (23-29) mEq/L BUN 41 H 42 H (8-23) mg/dL Creatinine 2.76 H 2.65 H (0.60-1.20) mg/dL Glucose 365 H 161 H (70-105) mg/dL Calcium 6.7 L 6.3 L (8.6-10.3) mg/dL Adrenal panel 12/02/18 12/03/18 Range/Units 12:01 04:00 Sodium 135 L 134 L (136-145) mEq/L Potassium 4.4 3.6 (3.5-5.1) mEq/L Chloride 106 105 (98-107) mEq/L Carbon Dioxide 17 L 19 L (23-29) mEq/L BUN 41 H 42 H (8-23) mg/dL Creatinine 2.76 H 2.65 H (0.60-1.20) mg/dL Glucose 365 H 161 H (70-105) mg/dL Calcium 6.7 L 6.3 L (8.6-10.3) mg/dL
[2018-12-02] MEDS: Chlorhexidine Rinse 15 ML MOUTHWASH MM SCH ×2 (09:33→21:33)
[2018-12-02] MEDS: Pantoprazole 40 MG VIAL IVP SCH (09:33)
[2018-12-02] MEDS: Budesonide/Formoterol 160/4.5 1 PUFF INH IH SCH ×2 (09:38→21:45)
[2018-12-02] MEDS ORDERED: Amiodarone Premix 150 MG/100 ML BAG IVPB ONE (09:45)
--- NOTE | 2018-12-02 10:32 | Nephrology Consult Note ---
Date of Encounter: 12/02/18 Time of Encounter: 08:45 Assessment and Plan (1) Acute kidney injury superimposed on CKD Current Visit: Yes Status: Acute With worsening renal function (RANCHO on CKD stage III), I recommend checking a basic metabolic panel this afternoon. She also has a metabolic acidosis and is now on a bicarbonate drip. If renal function continues to fail, she may need initiation of renal replacement therapy. In the meantime, continue to follow a renal protective/conservative strategy with strict I's and O's collection, daily weights, avoidance of nephrotoxins, renal dosing of medications. Thank you for consult in the [facility] on this complex patient who required a high degree of medical decision making and evaluation and management. (2) Acute and chronic respiratory failure with hypoxia Current Visit: Yes Status: Acute As per primary (3) Hydronephrosis Current Visit: Yes Status: Acute Appreciate Urology Qualifiers: Hydronephrosis type: with ureteral calculous obstruction Qualified Code(s): N13.2 - Hydronephrosis with renal and ureteral calculous obstruction (4) Metabolic acidosis Current Visit: Yes Status: Acute Agree with bicarb gtt History of Present Illness - Reason for Consult Consult date: 12/02/18 Acute Kidney Injury Requesting physician: Rufina Heredia - Chief Complaint RANCHO - History of Present Illness The patient is a 63-year-old morbidly obese female with a past medical history of long-standing diabetes, previous renal stones, and chronic kidney disease stage III who presented with an obstructing renal stone with hydronephrosis plus acute kidney injury. Urology was consulted and has seen the patient, and now Nephrology was consulted as her renal function continues to worsen. She is intubated and sedated so all history including the history of present illness, family history, and review of systems were limited. I reviewed her labs, vital signs, progress notes, imaging, and medication list. I see that she was just recently established with my colleague Dr. Moore in the outpatient setting. She does not have NSAIDs on her outpatient medication list. She was started on a bicarbonate drip this morning. I discussed her care with the RN PACU. Past Med Surg Social Fam HX - Past Medical History Medical history: diabetes, renal disease, atrial fibrillation, hyperlipidemia, arthritis, hypertension, pulmonary embolus, other, coronary artery disease, COPD, DVT Additional medical history: R BKA. Vit D Deficiency. Left foot digits amputated Psychiatric history: anxiety, depression - Past Surgical History Surgical History: other Additional surgical history: Left TMA, right BKA - Social History Smoking Status: Current every day smoker Smokeless Tobacco Status: No Alcohol use: none Drug use: none - Family History Mother Family Member Ethnicity: Non- Twin of Family Member: Yes, Identical Living Status: Hx Family Cardiac Disorders: Yes Hx Family Respiratory Disorders: No Hx Family Cancer: Yes (aunt) Hx Family GI Disorders: Yes Hx Family Endocrine Disorder: Yes Hx Family Neurologic Disorders: Yes Hx Family HEENT Disorders: No Hx Family Autoimmune Disorders: No Father Living Status: Hx Family Cardiac Disorders: Yes Hx Family Endocrine Disorder: Yes (diabetes) Brother Living Status: Hx Family Endocrine Disorder: Yes (diabetes) Medications and Allergies Acetaminophen [Tylenol] 1,000 mg PO Q6HR PRN 11/30/18 [History] Cholecalciferol (Vitamin D3) [Vitamin D] 1,000 unit PO DAILY 11/30/18 [History] Clopidogrel Bisulfate [Plavix] 75 mg PO DAILY 11/30/18 [History] Duloxetine HCl [Cymbalta] 60 mg PO DAILY 11/30/18 [History] Gabapentin [Neurontin] 1,200 mg PO TID 11/30/18 [History] Insulin ASPART [Novolog] 18 - 32 unit SQ TID 11/30/18 [History] Liraglutide [Victoza 2-Zaid] 1.2 mg SQ DAILY 11/30/18 [History] Loratadine [Claritin] 10 mg PO DAILY 11/30/18 [History] Metoprolol [Lopressor] 150 mg PO BID 11/30/18 [History] Multivitamin,Stress Formula [Stress Formula] 1 each PO DAILY 11/30/18 [History] Rivaroxaban [Xarelto] 15 mg PO 1700 11/30/18 [History] Spironolactone [Aldactone] 25 mg PO DAILY 11/30/18 [History] Umeclidinium Rittman [Incruse Ellipta] 1 puff IH DAILY 11/30/18 [History] amLODIPine [Norvasc] 5 mg PO DAILY 11/30/18 [History] Albuterol Sulfate [Ventolin Hfa] 2 puff IH BID 12/02/18 [History] Atorvastatin [Lipitor] 10 mg PO HS 12/02/18 [History] Fluticasone Propionate Nasal [Flonase] 1 spray NS DAILY 12/02/18 [History] Fluticasone/Salmeterol [Advair 250-50 Diskus] 1 puff IH BID 12/02/18 [History] Fluticasone/Vilanterol [Breo Ellipta 100-25 Mcg INH] 1 puff IH DAILY 12/02/18 [History] Furosemide [Lasix] 60 mg PO BID 12/02/18 [History] Insulin Glargine,Hum.rec.anlog [Basaglar Kwikpen U-100] 36 unit SQ BID 12/02/18 [History] Potassium Chloride [Klor-Con 10] 30 meq PO DAILY 12/02/18 [History] Sertraline [Zoloft] 75 mg PO DAILY 12/02/18 [History] Vitamin B Complex/Vit C/Vit E [Stresstab] 1 tab PO DAILY 12/02/18 [History] Allergy/AdvReac Type Severity Reaction Status Date / Time codeine Allergy See Verified 11/30/18 17:25 Comments latex Allergy See Verified 11/30/18 17:25 Comments Paroxetine [From Paxil] Allergy See Verified 11/30/18 17:25 Comments Penicillins Allergy See Verified 11/30/18 17:25 Comments Review of Systems ROS unobtainable: due to endotracheal tube Exam - Vital Signs Vital signs: Initial Vital Signs Temp Pulse Resp BP Pulse Ox 98.5 F 106 15 101/67 93 12/01/18 00:23 12/01/18 00:23 12/01/18 00:23 12/01/18 00:23 12/01/18 00:23 Vital Signs - Last 8 Hours Temp Pulse Resp BP Pulse Ox 12/02/18 10:00 102.4 F H 146 12 104/48 12/02/18 09:38 18 104/49 95 12/02/18 09:00 103.4 F H 133 19 113/62 12/02/18 08:00 103.8 F H 133 18 109/59 95 12/02/18 07:17 19 113/59 94 12/02/18 07:15 103 F H 12/02/18 07:00 103 F H 129 19 110/59 93 12/02/18 06:00 132 19 116/63 94 12/02/18 05:56 19 118/65 95 12/02/18 05:00 136 19 117/62 91 12/02/18 04:06 101.8 F H 12/02/18 04:00 130 20 116/62 95 12/02/18 03:36 19 101/56 91 12/02/18 03:00 123 19 104/56 91 Intake and Output 12/01/18 12/02/18 12/02/18 23:59 07:59 15:59 Intake Total 1673 7820 / 8040 220 / 8040 Output Total 250 / 250 350 / 350 Balance 1424 / 1738 7470 / 7690 220 / 7690 Intake: IV Fluids 1673 7820 / 8040 220 / 8040 0.9 % Sodium Chloride 1,000 ML 1000 / 1000 6300 / 6300 @ 999 mls/hr IVC .[id number] [facility] Rx# :[id number] Amiodarone Drip Premix 360mg/ 200 / 200 200mL 360 mg In 200 ml @ 1 MG/ MIN 33.333 mls/hr IVC ONCE ONE Rx#:[id number] Precedex Premix 400 mcg In 100 200 / 300 300 / 400 100 / 400 ml @ 0.2 MCG/KG/HR 5.505 mls/hr IVC .[id number] [facility] Rx#: [id number] Cardizem 50 MG In 0.9 % Sodium 0 / 0 Chloride 40 ML @ 5 MG/HR 5 mls/ hr IVC CONT [facility] Rx#:[id number] FentaNYL (PF) 1,000 MCG In 0.9 100 / 200 200 / 200 % Sodium Chloride 80 ML @ 50 MCG/HR 5 mls/hr IVC CONT [facility] Rx #:[id number] Heparin 25,000 UNIT/250 ML D5W 250 / 250 25,000 unit In 250 ml @ 14 UNIT /KG/HR 15.414 mls/hr IVC . [id number] [facility] Rx#:[id number] Levophed 4 MG In Dextrose 5% 254 / 308 450 / 450 250 ML @ 8 MCG/MIN 30.48 mls/hr IVC CONT [facility] Rx#:[id number] Maxipime 2,000 MG In Water for 20 20 / 20 inj. (sterile) 20 ML @ 300 mls/ hr IVP Q12HR [facility] Rx#:[id number] Ofirmev 1,000 mg/100 ml 1,000 100 / 100 mg In 100 ml @ 400 mls/hr IVPB ONCE ONE Rx#:[id number] Amiodarone Premix 150mg/100mL 100 / 100 150 mg In 100 ml @ 300 mls/hr IVPB ONCE ONE Rx#:[id number] Calcium Gluconate 2,000 MG In 0 120 / 120 .9 % Sodium Chloride 100 ML @ 220 mls/hr IVPB ONCE ONE Rx#: [id number] Output: Catheter 250 / 250 350 / 350 Gastric Drainage 0 / 0 0 / 0 Other: Weight 113.7 kg Blood Glucose* 289 Patient Weight 12/02/18 23:59 Weight 113.7 kg - General Appearance General appearance: well-developed, obese, sedated on ventilator, intubated EENT: ATNC, PERRL Neck: no JVD, supple Respiratory: no kyphosis, course breath sounds Cardiology: edema (nonpitting puffly swelling in hands bilaterally), regular rate, regular rhythm, normal S1, normal S2 Gastrointestinal: normoactive bowel sounds, no guarding Integumentary: warm and dry, ecchymotic Additional Comments: Neuro exam was limited as she was sedated Additional Comments: left metatarsal amputations (no left toes) and right BKA were noted Results - Lab Results 12/02/18 04:21 12/02/18 12:01 Most recent lab results 12/02/18 12/02/18 12/02/18 04:21 04:21 06:07 ABG pH 7.12 L* 7.17 L* ABG pCO2 42 34 L ABG pO2 61 L 72 L ABG HCO3 13 L 12 L ABG O2 Saturation 82 L 90 L Calcium 6.3 L Phosphorus 5.1 H Magnesium 1.4 L Consult Discharge Plan - Plan Referrals: Kelly Cardozo RN [Primary Care Provider] -
[2018-12-02] MEDS ORDERED: Insulin DETEMIR 100 UNIT/ML X5UNITS SQ ONE (11:45)
[2018-12-02] MEDS: FentaNYL (PF) 1,000 MCG in 0.9 % Sodium Chloride 80 ML IVC SCH ×2 (11:47)
[2018-12-02] MEDS ORDERED: *HR* Metoprolol 5 MG/5 ML VIAL IVP ONE (11:59)
[2018-12-02 12:40] LABS: Calcium 6.7 mg/dL (8.6-10.3); Potassium 4.4 mEq/L (3.5-5.1)
[2018-12-02 12:40] LABS: ABG Base Excess -15 mEq/L (-2 to 3); ABG HCO3 14 mEq/L (21-27); ABG Oxygen Saturation 87 % (95-98); ABG PCO2 42 mmHg (35-45); ABG PH 7.13 pH Units (7.32-7.45); ABG PO2 68 mmHg (85-104); ABG TCO2 15 mEq/L (20-26); Blood Gas Modality VC; Blood Gas PEEP 8 cm H2O; Blood Gas VT 550 cc
[2018-12-02] MEDS ORDERED: Sodium Bicarbonate 50 MEQ/50 ML VIAL IVP ONE (12:51)
[2018-12-02] MEDS ORDERED: Sodium Bicarbonate 50 MEQ/50 ML VIAL ONE (13:04)
[2018-12-02] MEDS ORDERED: *HR* Dextrose 50 % in Water (Syg) 50 ML SYRINGE IVP PRN (13:56)
[2018-12-02] MEDS: Insulin Human Regular 100 UNIT in 0.9 % Sodium Chloride 100 ML IVC SCH ×2 (14:58→21:00)
[2018-12-02] MEDS: Sodium Bicarbonate 150 MEQ in D5% in Water 1,000 ML IVC SCH (15:51)
[2018-12-02] MEDS ORDERED: Insulin DETEMIR 100 UNIT/ML X5UNITS SQ SCH (21:00)
[2018-12-03] MEDS: Dexmedetomidine HCl 400 MCG/100 ML MLS IVC SCH ×7 (00:32→20:44)
[2018-12-03] MEDS: FentaNYL (PF) 1,000 MCG in 0.9 % Sodium Chloride 80 ML IVC SCH ×2 (00:37→12:05)
[2018-12-03] MEDS: Sodium Bicarbonate 150 MEQ in D5% in Water 1,000 ML IVC SCH ×4 (00:49→18:55)
[2018-12-03] MEDS: Artificial Tears SOLN 15 ML BOTTLE BOTH EYES SCH ×6 (00:50→20:46)
[2018-12-03] MEDS: Norepinephrine 4 MG in D5% in Water 250 ML IVC SCH ×2 (03:01→10:28)
[2018-12-03] MEDS: Levalbuterol Neb 1.25 MG/3 ML IH SCH ×4 (03:32→21:41)
[2018-12-03 04:28] LABS: ABG Base Excess -10 mEq/L (-2 to 3); ABG HCO3 20 mEq/L (21-27); ABG Oxygen Saturation 86 % (95-98); ABG PCO2 59 mmHg (35-45); ABG PH 7.13 pH Units (7.32-7.45); ABG PO2 68 mmHg (85-104); ABG TCO2 22 mEq/L (20-26); Blood Gas Modality ASSIST CONTROL; Blood Gas PEEP 8 cm H2O; Blood Gas VT 550 cc
[2018-12-03 05:14] LABS: Basophils % 0.2 %; Eosinophils # 0.1 K/mcL (0.0-0.6); Eosinophils % 0.8 %; Hematocrit 41.3 % (35.3-44.9); Hemoglobin 12.8 g/dL (11.5-15.4); Immature Granulocytes % 0.9 % (0-4); Lymphocytes # 0.7 K/mcL (0.6-4.6); Lymphocytes % 4.8 %; Mean Corpuscular Volume 93.7 fL (83.0-100.0); Mean Platelet Volume 11.3 fL (9.4-12.4); Monocytes # 0.7 K/mcL (0.0-1.3); Monocytes % 4.6 %; Neutrophils # 13.1 K/mcL (1.6-8.9); Platelet Count 159 K/mcL (140-400); Red Blood Count 4.41 M/mcL (3.82-4.97); Red Cell Distribution Width 16.3 % (11.5-14.5); Segmented Neutrophils % 88.7 %; White Blood Count 14.7 K/mcL (4.3-11.1)
[2018-12-03 05:25] LABS: Calcium 6.3 mg/dL (8.6-10.3); Magnesium 1.6 mg/dL (1.6-2.6); Phosphorous 5.5 mg/dL (2.7-4.5); Potassium 3.6 mEq/L (3.5-5.1)
[2018-12-03] MEDS: Amiodarone Premix 360 MG/200 ML BAG IVC SCH ×2 (06:07→15:59)
[2018-12-03] MEDS: Insulin Human Regular 100 UNIT in 0.9 % Sodium Chloride 100 ML IVC SCH ×2 (06:13→21:02)
[2018-12-03 06:29] LABS: ABG Base Excess -9 mEq/L (-2 to 3); ABG HCO3 20 mEq/L (21-27); ABG Oxygen Saturation 90 % (95-98); ABG PCO2 56 mmHg (35-45); ABG PH 7.16 pH Units (7.32-7.45); ABG PO2 75 mmHg (85-104); ABG TCO2 22 mEq/L (20-26); Blood Gas Modality ASSIST CONTROL; Blood Gas PEEP 8 cm H2O; Blood Gas VT 550 cc
--- NOTE | 2018-12-03 07:00 | Pulmonology Progress Note ---
<AddieTracemicaela M - Last Filed: 12/03/18 13:51> Date of Encounter: 12/03/18 Objective PUL Vital signs: Last Vital Signs Temp 97.4 F L 12/03/18 09:00 Pulse 123 12/03/18 09:00 Resp 20 12/03/18 09:00 BP 127/66 12/03/18 09:00 Pulse Ox 97 12/03/18 09:00 Ventilator Settings Ventilator Settings: Ventilator Settings, Last 8 Hours Ventilator Tidal Volume 550 Setting Ventilator Tidal Volume 550 Setting Ventilator Tidal Volume 550 Setting Ventilator Tidal Volume 550 Setting Ventilator Tidal Volume 550 Setting Ventilator Tidal Volume 550 Setting Ventilator Tidal Volume 550 Setting Ventilator Tidal Volume 550 Setting Ventilator Respiratory Rate 16 Setting Ventilator Respiratory Rate 12 Setting Ventilator Respiratory Rate 16 Setting Ventilator Respiratory Rate 12 Setting Ventilator Respiratory Rate 12 Setting Ventilator Respiratory Rate 12 Setting Ventilator Respiratory Rate 12 Setting Ventilator Respiratory Rate 12 Setting Actual Respiratory Rate 20 Actual Respiratory Rate 20 Actual Respiratory Rate 15 Actual Respiratory Rate 15 Actual Respiratory Rate 17 Actual Respiratory Rate 17 Positive End Expiratory 8 Pressure Positive End Expiratory 8 Pressure Positive End Expiratory 8 Pressure Positive End Expiratory 8 Pressure Positive End Expiratory 8 Pressure Positive End Expiratory 8 Pressure Positive End Expiratory 8 Pressure Positive End Expiratory 8 Pressure Peak Inspiratory Airway 12 Pressure Peak Inspiratory Airway 12 Pressure Peak Inspiratory Airway 19 Pressure Peak Inspiratory Airway 19 Pressure Peak Inspiratory Airway 18 Pressure Peak Inspiratory Airway 16 Pressure Results - Laboratory Findings CBC and BMP: 12/03/18 04:00 12/03/18 04:00 ABG ABG pH 7.16 pH Units (7.32-7.45) L* 12/03/18 06:23 ABG pCO2 56 mmHg (35-45) H 12/03/18 06:23 ABG pO2 75 mmHg (85-104) L 12/03/18 06:23 ABG O2 Saturation 90 % (95-98) L 12/03/18 06:23 PT/INR, D-dimer PT 20.8 Seconds (9.4-12.1) H 12/01/18 03:19 Abnormal lab findings: Abnormal lab results WBC 14.7 K/mcL (4.3-11.1) H 12/03/18 04:00 Hct 45.3 % (35.3-44.9) H 12/01/18 03:19 MCHC 31.0 g/dL (31.6-35.5) L 12/03/18 04:00 RDW 16.3 % (11.5-14.5) H 12/03/18 04:00 Neutrophils # 13.1 K/mcL (1.6-8.9) H 12/03/18 04:00 Nucleated RBCs/100 WBC 0.1 /100 WBC (0) H 12/02/18 04:21 PT 20.8 Seconds (9.4-12.1) H 12/01/18 03:19 APTT 36.4 Seconds (26.0-36.0) H 12/01/18 03:19 ABG pH 7.16 pH Units (7.32-7.45) L* 12/03/18 06:23 ABG pCO2 56 mmHg (35-45) H 12/03/18 06:23 ABG pO2 75 mmHg (85-104) L 12/03/18 06:23 ABG HCO3 20 mEq/L (21-27) L 12/03/18 06:23 ABG Total CO2 15 mEq/L (20-26) L 12/02/18 12:25 ABG O2 Saturation 90 % (95-98) L 12/03/18 06:23 ABG Base Excess -9 mEq/L (-2 to 3) L 12/03/18 06:23 Sodium 134 mEq/L (136-145) L 12/03/18 04:00 Chloride 111 mEq/L (98-107) H 12/02/18 04:21 Carbon Dioxide 19 mEq/L (23-29) L 12/03/18 04:00 BUN 42 mg/dL (8-23) H 12/03/18 04:00 Creatinine 2.65 mg/dL (0.60-1.20) H 12/03/18 04:00 Est GFR ( Amer) 22 (> 60) L 12/03/18 04:00 Est GFR (Non-Af Amer) 18 (> 60) L 12/03/18 04:00 Glucose 161 mg/dL (70-105) H 12/03/18 04:00 POC Glucose 194 mg/dL (70-99) H 12/03/18 00:31 Hemoglobin A1c 8.6 % (-5.6) H 12/01/18 03:19 Calculated Osmolality 305 (280-300) H 12/02/18 12:01 Calcium 6.3 mg/dL (8.6-10.3) L 12/03/18 04:00 Phosphorus 5.5 mg/dL (2.7-4.5) H 12/03/18 04:00 Magnesium 1.4 mg/dL (1.6-2.6) L 12/02/18 04:21 Serum Total Protein 6.1 g/dL (6.4-8.9) L 12/01/18 03:19 Albumin 3.3 g/dL (3.5-5.7) L 12/01/18 03:19 Prealbumin 3.4 mg/dL (17.0-34.0) L 12/03/18 04:00 HDL Cholesterol 22 mg/dL (40-59) L 12/01/18 03:19 Urine Clarity Cloudy (Clear) A 12/01/18 04:23 Urine Blood Moderate (Negative) H 12/01/18 04:23 Urine Nitrite Positive (Negative) A 12/01/18 04:23 Ur Leukocyte Esterase Large (Negative) H 12/01/18 04:23 Urine Microscopic WBC 3-5 per hpf (0-3) H 12/01/18 04:23 Ur Squamous Epith Cells Many per lpf (None-Few) H 12/01/18 04:23 Urine Bacteria Moderate per hpf (None-Few) H 12/01/18 04:23 E. coli (PCR) DETECTED (Not Detect) A 12/01/18 03:50 - Microbiology Findings Microbiology Findings: Microbiology, Last 48 Hours 12/01/18 03:59 Blood Culture - Final Peripheral Venipuncture Escherichia coli 12/01/18 04:23 Urine Culture - Final Urine,Clean Catch Escherichia coli 12/01/18 03:50 Blood Culture - Final Peripheral Venipuncture Escherichia coli 12/01/18 08:11 Surgical Biopsy Culture - Preliminary Left Kidney 12/02/18 07:08 Blood Culture - Preliminary Peripheral Venipuncture Culture is incubating and being continuously monitored for growth. Final report to follow. 12/02/18 07:08 Blood Culture - Preliminary Peripheral Venipuncture Culture is incubating and being continuously monitored for growth. Final report to follow. 12/01/18 08:11 Anaerobic Culture - Preliminary Left Kidney Culture is incubating. - Clinical Findings Intake & Output: Intake & Output 12/02/18 12/03/18 12/03/18 23:59 07:59 15:59 Intake Total 2103.0 / 19029.0 2219.8 / 3389.8 1170 / 3389.8 Output Total 775 / 1225 275 / 275 Balance 1328.0 / 9600.0 1944.8 / 3114.8 1170 / 3114.8 Weight 127.8 kg Consult Discharge Plan - Plan Referrals: Kelly Cardozo, RN [Primary Care Provider] - - Attending Attestation I examined this patient and my medical decision-making was reviewed with the Resident Physician. I agree with the documented findings, disposition and treatment plan as described except to the extent set forth below. Patient seen and examined. Labs, radiology, chart personally reviewed. Agree with resident's history and physical, assessment, plan with following comments: DIRECTOR OF COMMUNITY LIFE: Patient does not follows commands, patient is requiring sedation for the vent synchrony. Pulmonary: Acceptable oxygenation and ventilation, however she is requiring more FiO2 and they still suspect there is pulmonary edema and patient with acute kidney injury that is making her situation even worse. FiO2 is increased and may need to increase PEEP to 10 if still having problem with oxygenation. There is no plan for spontaneous breathing trial because of patient's hemodynamically unstable. Cardiovascular: Patient still in septic shock and requiring Levophed. Giving patient more fluid in her oxygenation.. GI: Nutrition per dietary and GI prophylaxis per routine Heme: DVT prophylaxis per routine ID: Continue antibiotics and plan to de-escalation Renal; urine out put and renal function reviewed. I have discussed with the car electronics installer regarding renal replacement therapy and fluid management and that would be the plan. Endorcine: blood glucose is monitored and insulin drip Lines: all lines checked and no evidence of infections. We need to follow-up on the culture and sensitivities and calling the lab to make sure she is on appropriate antibiotic. Skin: skin care to prevent pressure ulcers per nursing routine care Dispo: ICU Code: Full. Prognosis. Guarded Family has been updated on her condition. I spent 35 min of Critical Care time with this patient. It involved decision making of high complexity to assess, manipulate, and support vital organ system failure and/or to prevent further life threatening deterioration of the patient's condition. The time involved in the performance of separately reportable procedures was not counted toward critical care time. <Rufina Heredia R - Last Filed: 12/03/18 15:29> Date of Encounter: 12/03/18 Time of Encounter: 07:00 Assessment and Plan (1) Acute and chronic respiratory failure with hypoxia Current Visit: Yes Status: Acute Due to hemodynamic instability with septic stone Currently intubated and sedated with Fentanyl and Precedex Continue scheduled bronchodilators and Symbicort - pt does have hx of COPD and tobacco abuse Continue to monitor closely in the ICU GI prophylaxis with daily Protonix IV (2) Metabolic acidosis Current Visit: Yes Status: Acute ABG showed pH of 7.16 this am with pCO2 56, HCO3 20 Lactic acid normal at 1.5x2 Anion gap 10 Beta-hydroxybutyrate mildly elevated at 0.39 Likely secondary to worsening renal function Nephro consulted Bicarb drip running (3) Sepsis Current Visit: Yes Status: Acute BCx x2 positive for GNR PCR shows E. coli Likely secondary to septic stone with E. coli UTI Dr. Salguero with stent placement 12/01 Pt on IV Cefepime day 3 UCx show E. coli sensativie to cefepime and rocephin, will continue the cefepime and plan to de-escalate once the patient has stabilized WBC decreased today to 14.7 Pt remains febrile Pt hypotensive with Levophed running Dr. Alejandro placed subclavian central line due to poor access of IJ and femorals Qualifiers: Sepsis type: Escherichia coli Qualified Code(s): A41.51 - Sepsis due to Escherichia coli [E. coli] (4) Atrial fibrillation with RVR Current Visit: Yes Status: Acute Initially placed on Cardizem drip DC'd due to pts hypotension Now on amiodarone drip HR continues to be in the 120s Fever could be a contributing factor to tachycardia Continue to monitor and once BP stabilizes add Cardizem or beta blockers Heparin ggt Patient's heart rate increased to the 150s to 160s and a 150 mg amiodarone bolus was given in addition to the drip This did not significantly decrease patient's heart rate, therefore we will add a one-time dose of 5mg Lopressor Stat echo ordered and pending as previous EKG was done in July of 2017 (5) Acute kidney injury superimposed on CKD Current Visit: Yes Status: Acute Baseline Cre 1.1 Mild decrease today at 2.65 Suspect relation to septic stone Borderline oliguria - 1225mls out yesterday and 275mls so far today Consultation to nephro placed - appreciate recommendations Continue to monitor and avoid nephrotoxic drugs Pt will begin CRRT today after dialysis catheter placement (6) Ureteral calculi Current Visit: Yes Status: Acute As seen on CT abd and pelvis Urology following and placed a stent on 12/01 (7) UTI (urinary tract infection) Current Visit: Yes Status: Acute E. coli PCR positive with GNR growing in urine Pt on Cefepime day 3 UCx show E. coli sensativie to cefepime and rocephin, will continue the cefepime and plan to de-escalate once the patient has stabilized Qualifiers: Urinary tract infection type: acute pyelonephritis Qualified Code(s): N10 - Acute pyelonephritis (8) Diabetes mellitus Current Visit: Yes Status: Chronic Now on IV insulin secondary to high BG and Bicarb drip in D5W Qualifiers: Diabetes mellitus type: type 2 Diabetes mellitus long term care administrator insulin use: with skilled nursing use Diabetes mellitus complication status: with skin complicati ons Diabetes mellitus complication detail: with foot ulcer Qualified Code(s): E11.621 - Type 2 diabetes mellitus with foot ulcer; L97.509 - Non-pr essure chronic ulcer of other part of unspecified foot with unspecified severity; Z79.4 - long term care phlebotomist (current) use of insulin (9) DVT prophylaxis Current Visit: Yes Status: Acute EPCD on RLE Heparin ggt Subjective Interval history: Pt remains acidotic at 7.16 with Bicarb drip and IV insulin running. Kidney function and uop continues to worsen. Pt will begin CRRT today after placement of a dialysis catheter. WBC improving. Objective PUL Vital signs: Last Vital Signs Temp 97.3 F L 12/03/18 06:00 Pulse 117 12/03/18 06:00 Resp 20 12/03/18 06:00 BP 125/64 12/03/18 06:00 Pulse Ox 96 12/03/18 06:00 General appearance: asleep Eyes: nonicteric Effort: normal Auscultation: bilateral: clear, diminished breath sounds Cardiovascular: irregular rhythm, other (tachycardic) Gastrointestinal: soft, non-tender Integumentary: normal Extremities: edema (trace), other (right BKA, left foot with toe amputations x5) pupils equal and round Ventilator Settings Ventilator Settings: Ventilator Settings, Last 8 Hours Ventilator Tidal Volume 550 Setting Ventilator Tidal Volume 550 Setting Ventilator Tidal Volume 550 Setting Ventilator Tidal Volume 550 Setting Ventilator Tidal Volume 550 Setting Ventilator Tidal Volume 550 Setting Ventilator Tidal Volume 550 Setting Ventilator Tidal Volume 550 Setting Ventilator Tidal Volume 550 Setting Ventilator Tidal Volume 550 Setting Ventilator Tidal Volume 550 Setting Ventilator Tidal Volume 550 Setting Ventilator Tidal Volume 550 Setting Ventilator Respiratory Rate 16 Setting Ventilator Respiratory Rate 12 Setting Ventilator Respiratory Rate 16 Setting Ventilator Respiratory Rate 12 Setting Ventilator Respiratory Rate 12 Setting Ventilator Respiratory Rate 12 Setting Ventilator Respiratory Rate 12 Setting Ventilator Respiratory Rate 12 Setting Ventilator Respiratory Rate 12 Setting Ventilator Respiratory Rate 12 Setting Ventilator Respiratory Rate 12 Setting Ventilator Respiratory Rate 12 Setting Ventilator Respiratory Rate 12 Setting Actual Respiratory Rate 20 Actual Respiratory Rate 20 Actual Respiratory Rate 15 Actual Respiratory Rate 15 Actual Respiratory Rate 17 Actual Respiratory Rate 17 Actual Respiratory Rate 15 Actual Respiratory Rate 14 Actual Respiratory Rate 15 Actual Respiratory Rate 15 Actual Respiratory Rate 15 Positive End Expiratory 8 Pressure Positive End Expiratory 8 Pressure Positive End Expiratory 8 Pressure Positive End Expiratory 8 Pressure Positive End Expiratory 8 Pressure Positive End Expiratory 8 Pressure Positive End Expiratory 8 Pressure Positive End Expiratory 8 Pressure Positive End Expiratory 8 Pressure Positive End Expiratory 8 Pressure Positive End Expiratory 8 Pressure Positive End Expiratory 8 Pressure Positive End Expiratory 8 Pressure Peak Inspiratory Airway 12 Pressure Peak Inspiratory Airway 12 Pressure Peak Inspiratory Airway 19 Pressure Peak Inspiratory Airway 19 Pressure Peak Inspiratory Airway 18 Pressure Peak Inspiratory Airway 16 Pressure Peak Inspiratory Airway 13 Pressure Peak Inspiratory Airway 18 Pressure Peak Inspiratory Airway 18 Pressure Peak Inspiratory Airway 13 Pressure Peak Inspiratory Airway 13 Pressure Results - Laboratory Findings CBC and BMP: 12/03/18 04:00 12/03/18 04:00 ABG ABG pH 7.16 pH Units (7.32-7.45) L* 12/03/18 06:23 ABG pCO2 56 mmHg (35-45) H 12/03/18 06:23 ABG pO2 75 mmHg (85-104) L 12/03/18 06:23 ABG O2 Saturation 90 % (95-98) L 12/03/18 06:23 PT/INR, D-dimer PT 20.8 Seconds (9.4-12.1) H 12/01/18 03:19 Abnormal lab findings: Abnormal lab results WBC 14.7 K/mcL (4.3-11.1) H 12/03/18 04:00 Hct 45.3 % (35.3-44.9) H 12/01/18 03:19 MCHC 31.0 g/dL (31.6-35.5) L 12/03/18 04:00 RDW 16.3 % (11.5-14.5) H 12/03/18 04:00 Neutrophils # 13.1 K/mcL (1.6-8.9) H 12/03/18 04:00 Nucleated RBCs/100 WBC 0.1 /100 WBC (0) H 12/02/18 04:21 PT 20.8 Seconds (9.4-12.1) H 12/01/18 03:19 APTT 36.4 Seconds (26.0-36.0) H 12/01/18 03:19 ABG pH 7.16 pH Units (7.32-7.45) L* 12/03/18 06:23 ABG pCO2 56 mmHg (35-45) H 12/03/18 06:23 ABG pO2 75 mmHg (85-104) L 12/03/18 06:23 ABG HCO3 20 mEq/L (21-27) L 12/03/18 06:23 ABG Total CO2 15 mEq/L (20-26) L 12/02/18 12:25 ABG O2 Saturation 90 % (95-98) L 12/03/18 06:23 ABG Base Excess -9 mEq/L (-2 to 3) L 12/03/18 06:23 Sodium 134 mEq/L (136-145) L 12/03/18 04:00 Chloride 111 mEq/L (98-107) H 12/02/18 04:21 Carbon Dioxide 19 mEq/L (23-29) L 12/03/18 04:00 BUN 42 mg/dL (8-23) H 12/03/18 04:00 Creatinine 2.65 mg/dL (0.60-1.20) H 12/03/18 04:00 Est GFR ( Amer) 22 (> 60) L 12/03/18 04:00 Est GFR (Non-Af Amer) 18 (> 60) L 12/03/18 04:00 Glucose 161 mg/dL (70-105) H 12/03/18 04:00 POC Glucose 194 mg/dL (70-99) H 12/03/18 00:31 Hemoglobin A1c 8.6 % (-5.6) H 12/01/18 03:19 Calculated Osmolality 305 (280-300) H 12/02/18 12:01 Calcium 6.3 mg/dL (8.6-10.3) L 12/03/18 04:00 Phosphorus 5.5 mg/dL (2.7-4.5) H 12/03/18 04:00 Magnesium 1.4 mg/dL (1.6-2.6) L 12/02/18 04:21 Serum Total Protein 6.1 g/dL (6.4-8.9) L 12/01/18 03:19 Albumin 3.3 g/dL (3.5-5.7) L 12/01/18 03:19 Prealbumin 3.4 mg/dL (17.0-34.0) L 12/03/18 04:00 HDL Cholesterol 22 mg/dL (40-59) L 12/01/18 03:19 Urine Clarity Cloudy (Clear) A 12/01/18 04:23 Urine Blood Moderate (Negative) H 12/01/18 04:23 Urine Nitrite Positive (Negative) A 12/01/18 04:23 Ur Leukocyte Esterase Large (Negative) H 12/01/18 04:23 Urine Microscopic WBC 3-5 per hpf (0-3) H 12/01/18 04:23 Ur Squamous Epith Cells Many per lpf (None-Few) H 12/01/18 04:23 Urine Bacteria Moderate per hpf (None-Few) H 12/01/18 04:23 E. coli (PCR) DETECTED (Not Detect) A 12/01/18 03:50 - Microbiology Findings Microbiology Findings: Microbiology, Last 48 Hours 12/02/18 07:08 Blood Culture - Preliminary Peripheral Venipuncture Culture is incubating and being continuously monitored for growth. Final report to follow. 12/02/18 07:08 Blood Culture - Preliminary Peripheral Venipuncture Culture is incubating and being continuously monitored for growth. Final report to follow. 12/01/18 03:50 Blood Culture - Preliminary Peripheral Venipuncture Gram Negative Daniel 12/01/18 04:23 Urine Culture - Preliminary Urine,Clean Catch Gram Negative Daniel 12/01/18 08:11 Surgical Biopsy Culture - Preliminary Left Kidney 12/01/18 08:11 Anaerobic Culture - Preliminary Left Kidney Culture is incubating. 12/01/18 03:59 Blood Culture - Preliminary Peripheral Venipuncture Gram Negative Daniel - Clinical Findings Intake & Output: Intake & Output 07/12/02/18 12/03/18 15:59 23:59 07:59 Intake Total 902 / 84424.0 2103.0 / 37710.0 1957 Output Total 100 / 1225 775 / 1225 150 / 150 Balance 802 / 9600.0 1328.0 / 9600.0 1808 / 1808 Weight 127.8 kg
[2018-12-03] MEDS ORDERED: Calcium Gluconate 2,000 MG in 0.9 % Sodium Chloride 100 ML IVPB ONE (07:27)
[2018-12-03] MEDS: Pantoprazole 40 MG VIAL IVP SCH (07:54)
[2018-12-03] MEDS: Chlorhexidine Rinse 15 ML MOUTHWASH MM SCH ×2 (07:54→20:46)
[2018-12-03] MEDS ORDERED: Cefepime HCl 2,000 MG in Water for inj. (sterile) 20 ML IVP SCH (08:00)
--- NOTE | 2018-12-03 08:36 | Urology Progress Note ---
<Lakshmi Zepeda N - Last Filed: 12/03/18 08:33> Date of Encounter: 12/03/18 Time of Encounter: 08:00 - Assessment and Plan (1) Hydronephrosis Current Visit: Yes Status: Acute Qualifiers: Hydronephrosis type: with ureteral calculous obstruction Qualified Code(s): N13.2 - Hydronephrosis with renal and ureteral calculous obstruction (2) Sepsis Current Visit: Yes Status: Acute Qualifiers: Sepsis type: sepsis due to unspecified organism Qualified Code(s): A41.9 - Sepsis, unspecified organism (3) Ureteral calculi Current Visit: Yes Status: Acute Assessment and plan: Patient is a 63-year-old female who presents 2 days status post cystoscopy, left retrograde pyelogram and left ureteral stent placement. Vital signs are currently stable and afebrile. Renal function is relatively unchanged, and nephrology is following. Urine volume is diminished, and there is some bloody sediment within catheter tubing. Catheter is still draining sufficiently. I advised nurse to call if there is any concern for catheter drainage or if urine appears Merlot or ketchup consistency in tubing. Dr. Salguero will be and reevaluate patient this afternoon. There is no further urologic surgical intervention anticipated during patient's hospital stay. Progress Note Narrative: POD #2. Patient seen and examined lying in bed in no apparent distress. Patient's nurse is at bedside. Lama catheter is indwelling and draining dark y ellow urine with moderate amount of bloody sediment into bedside bag. Objective Initial Vital Signs Temp Pulse Resp BP Pulse Ox 98.5 F 106 15 101/67 93 12/01/18 00:23 12/01/18 00:23 12/01/18 00:23 12/01/18 00:23 12/01/18 00:23 - General physical appearance Present: no distress, chronically ill - Respiratory Present: normal expansion, other (Patient being mechanically ventilated) - Abdomen Present: soft. Absent: distended - Genitourinary Urine Appearance: Present: Sediment, Hematuria - Integumentary Present: no rash, no abnormal pigmentation - Musculoskeletal Present: normal posture - Psychiatric Present: other (Patient is sedated and mechanically ventilated) - Labs 12/03/18 04:00 12/03/18 04:00 Diabetes panel 12/02/18 12/03/18 Range/Units 12:01 04:00 Sodium 135 L 134 L (136-145) mEq/L Potassium 4.4 3.6 (3.5-5.1) mEq/L Chloride 106 105 (98-107) mEq/L Carbon Dioxide 17 L 19 L (23-29) mEq/L BUN 41 H 42 H (8-23) mg/dL Creatinine 2.76 H 2.65 H (0.60-1.20) mg/dL Glucose 365 H 161 H (70-105) mg/dL Calcium 6.7 L 6.3 L (8.6-10.3) mg/dL Calcium panel 12/02/18 12/03/18 Range/Units 12: 04:00 Calcium 6.7 L 6.3 L (8.6-10.3) mg/dL Phosphorus 5.5 H (2.7-4.5) mg/dL Pituitary panel 12/02/18 12/03/18 Range/Units 12:01 04:00 Sodium 135 L 134 L (136-145) mEq/L Potassium 4.4 3.6 (3.5-5.1) mEq/L Chloride 106 105 (98-107) mEq/L Carbon Dioxide 17 L 19 L (23-29) mEq/L BUN 41 H 42 H (8-23) mg/dL Creatinine 2.76 H 2.65 H (0.60-1.20) mg/dL Glucose 365 H 161 H (70-105) mg/dL Calcium 6.7 L 6.3 L (8.6-10.3) mg/dL Adrenal panel 12/02/18 12/03/18 Range/Units 12:01 04:00 Sodium 135 L 134 L (136-145) mEq/L Potassium 4.4 3.6 (3.5-5.1) mEq/L Chloride 106 105 (98-107) mEq/L Carbon Dioxide 17 L 19 L (23-29) mEq/L BUN 41 H 42 H (8-23) mg/dL Creatinine 2.76 H 2.65 H (0.60-1.20) mg/dL Glucose 365 H 161 H (70-105) mg/dL Calcium 6.7 L 6.3 L (8.6-10.3) mg/dL Consult Discharge Plan - Plan Referrals: Kelly Cardozo RN [Primary Care Provider] - <Manan Salguero - Last Filed: 12/05/18 08:01> Date of Encounter: 12/05/18 - Assessment and Plan (1) Ureteral calculi Current Visit: Yes Status: Acute Assessment and plan: agree with PA assessment and plan. I did no personally evaluate the patient on this day. (2) Hydronephrosis Current Visit: Yes Status: Acute Qualifiers: Hydronephrosis type: with ureteral calculous obstruction Qualified Code(s): N13.2 - Hydronephrosis with renal and ureteral calculous obstruction (3) Sepsis Current Visit: Yes Status: Acute Qualifiers: Sepsis type: Escherichia coli Qualified Code(s): A41.51 - Sepsis due to Escherichia coli [E. coli] Objective Initial Vital Signs Temp Pulse Resp BP Pulse Ox 98.5 F 106 15 101/67 93 12/01/18 00:23 12/01/18 00:23 12/01/18 00:23 12/01/18 00:23 12/01/18 00:23 - Labs 12/05/18 03:40 12/05/18 03:40 Diabetes panel 12/05/18 Range/Units 03:40 Sodium 134 L (136-145) mEq/L Potassium 3.6 (3.5-5.1) mEq/L Chloride 100 (98-107) mEq/L Carbon Dioxide 27 (23-29) mEq/L BUN 17 (8-23) mg/dL Creatinine 1.26 H (0.60-1.20) mg/dL Glucose 174 H (70-105) mg/dL Calcium 7.5 L (8.6-10.3) mg/dL Calcium panel 12/05/18 Range/Units 03:40 Calcium 7.5 L (8.6-10.3) mg/dL Phosphorus 2.0 L (2.7-4.5) mg/dL Pituitary panel 12/05/18 Range/Units 03:40 Sodium 134 L (136-145) mEq/L Potassium 3.6 (3.5-5.1) mEq/L Chloride 100 (98-107) mEq/L Carbon Dioxide 27 (23-29) mEq/L BUN 17 (8-23) mg/dL Creatinine 1.26 H (0.60-1.20) mg/dL Glucose 174 H (70-105) mg/dL Calcium 7.5 L (8.6-10.3) mg/dL Adrenal panel 12/05/18 Range/Units 03:40 Sodium 134 L (136-145) mEq/L Potassium 3.6 (3.5-5.1) mEq/L Chloride 100 (98-107) mEq/L Carbon Dioxide 27 (23-29) mEq/L BUN 17 (8-23) mg/dL Creatinine 1.26 H (0.60-1.20) mg/dL Glucose 174 H (70-105) mg/dL Calcium 7.5 L (8.6-10.3) mg/dL
[2018-12-03] MEDS: Budesonide/Formoterol 160/4.5 1 PUFF INH IH SCH ×2 (09:55→21:41)
[2018-12-03] MEDS ORDERED: Calcium Gluconate 1gm/50mL 1 GM/50 ML BAG IVPB PRN ×2 (10:52)
[2018-12-03] MEDS ORDERED: 0.9 % Sodium Chloride 1,000 ML PRIME SCH (11:00)
[2018-12-03] MEDS: Heparin 25,000 UNIT/250 ML D5W 25,000 UNIT/250 ML IV.SOLN IVC SCH ×2 (11:57→20:18)
[2018-12-03 12:19] LABS: INR 1.2; Prothrombin Time 13.7 Seconds (9.4-12.1)
[2018-12-03] MEDS ORDERED: *HR* Heparin 5,000 UNIT/ML VIAL ONE (14:28)
--- NOTE | 2018-12-03 14:50 | Nephrology Progress Note ---
Date of Encounter: 12/03/18 Time of Encounter: 08:55 - Assessment and Plan (1) Acute kidney injury superimposed on CKD Current Visit: Yes Status: Acute She continues to have acute kidney injury with oliguria, fluid overload, intubated, and in septic shock. She will require initiation of renal replacement therapy, and due to her hypotension I recommend CVVHDF. She has been on a heparin drip, so she will not require citrate/calcium gtt. I recommend starting with 1000 of Prismasate and 1000 and replacement fluid; her initial blood flow rate will be set at 100, and initial fluid removal at 0, but as her blood pressures/heart rate allow, I will tentatively plan to increase fluid removal. I appreciate interventional radiology, who I consulted to help arrange the temporal dialysis catheter placement. I also discussed her care with the ICU team early in the morning, during rounds, and later in the afternoon. She required a high degree of medical decision-making and evaluation and management, and I contributed critical care time of approximately 41 minutes and total, not counting procedure. My colleague Dr. Higuera will be qualification engineer tomorrow, and I will provide a thorough handoff. Thank you (2) Acute and chronic respiratory failure with hypoxia Current Visit: Yes Status: Acute As per primary (3) Hydronephrosis Current Visit: Yes Status: Acute Appreciate Urology Qualifiers: Hydronephrosis type: with ureteral calculous obstruction Qualified Code(s): N13.2 - Hydronephrosis with renal and ureteral calculous obstruction (4) Metabolic acidosis Current Visit: Yes Status: Acute Continue the bicarbonate drip, which has not adequately controlled her acidosis, but once kimmie is started, then the bicarbonate drip should be stopped to limit the obligate fluid input. Kimmie will help correct the acidosis. (5) Oliguria Current Visit: Yes Status: Acute She is oliguric today, and with worsening volume status, this is one of the indications for her to initiate renal replacement therapy. (6) Sepsis Current Visit: Yes Status: Acute Her sepsis is likely contributed to the acute kidney injury. Antibiotics as per primary, and I would recommend renal dosing. Because she is so hypotensive, she will not be able to tolerate standard hem odialysis, and Kimmie with therefore be necessary. Qualifiers: Sepsis type: sepsis due to unspecified organism Qualified Code(s): A41.9 - Sepsis, unspecified organism Subjective Principal diagnosis: RANCHO Interval history: The patient was seen and examined earlier in the day, she remained intubated and critically ill. I spoke about her care with the ICU team including attending and PROPERTY OFFICER. She has been on a heparin drip. I also spoke with interventional radiology regarding her last INR. INR was rechecked and was actually better, and she was in fact able to proceed with her temper dialysis catheter placement. Objective - Vital Signs Vital signs: Vital Signs Temp Pulse Resp BP Pulse Ox 12/03/18 14:00 103 16 100/57 97 12/03/18 13:00 97.8 F 99 16 97/56 12/03/18 12:00 97.8 F 104 16 114/66 98 12/03/18 11:52 97.7 F 12/03/18 11:21 20 116/62 96 12/03/18 11:00 97.6 F 108 16 135/69 96 12/03/18 10:00 97.4 F L 110 17 124/65 96 12/03/18 09:55 20 121/66 97 12/03/18 09:00 97.4 F L 123 20 127/66 97 12/03/18 08:00 97.4 F L 117 19 118/67 97 12/03/18 07:57 97.3 F L 12/03/18 07:35 20 117/63 96 12/03/18 07:00 97.3 F L 109 16 118/64 96 12/03/18 06:00 97.3 F L 117 20 125/64 96 12/03/18 05:50 20 128/64 97 12/03/18 05:00 115 15 127/63 95 12/03/18 04:00 97.7 F 124 15 130/68 95 12/03/18 03:48 97.8 F 12/03/18 03:32 17 124/65 96 12/03/18 03:00 98.9 F 123 17 123/66 95 12/03/18 02:00 98.8 F 115 15 128/65 95 12/03/18 01:07 16 95 12/03/18 01:00 99.7 F H 128 15 115/62 95 12/03/18 00:11 119 12/03/18 00:00 99.8 F H 119 15 117/63 95 07/24/19 23:53 100.1 F H 07/24/19 23:36 15 106/53 94 12/02/18 23:00 100.4 F H 125 13 105/54 95 12/02/18 22:00 100.4 F H 122 13 109/54 95 12/02/18 21:45 13 104/53 95 12/02/18 21:00 100.4 F H 132 14 102/52 95 12/02/18 20:00 100.1 F H 132 15 103/52 95 12/02/18 19:54 14 106/57 94 12/02/18 19:44 99.1 F 12/02/18 19:00 122 16 101/55 94 12/02/18 18:00 121 16 104/56 94 12/02/18 17:15 15 105/57 95 12/02/18 17:00 98.2 F 136 12 108/58 95 12/02/18 16:24 97.4 F L 12/02/18 16:00 114 12 103/56 94 12/02/18 15:42 16 104/59 95 12/02/18 15:00 97.5 F L 113 20 103/59 94 Intake and Output 12/02/18 12/03/18 12/03/18 23:59 07:59 15:59 Intake Total 2103.0 / 78728.0 2219.8 / 4240.8 202 / 4240.8 Output Total 775 / 1225 275 / 425 150 / 425 Balance 1328.0 / 9600.0 1944.8 / 3815.8 1871 / 3815.8 Intake: IV Fluids 2103.0 / 72134.0 2219.8 / 4240.8 2020 4240.8 Amiodarone Drip Premix 360mg/ 200 / 200 200 / 200 200mL 360 mg In 200 ml @ 0.5 MG /MIN 16.667 mls/hr IVC CONT [facility] Rx#:[id number] Precedex Premix 400 mcg In 100 200 / 500 300 / 500 200 / 500 ml @ 0.2 MCG/KG/HR 5.505 mls/hr IVC .[id number] [facility] Rx#: [id number] FentaNYL (PF) 1,000 MCG In 0.9 100 / 180 80 / 180 % Sodium Chloride 80 ML @ 50 MCG/HR 5 mls/hr IVC CONT [facility] Rx #:[id number] Heparin 25,000 UNIT/250 ML D5W 250 / 500 197 / 197 25,000 unit In 250 ml @ 14 UNIT /KG/HR 15.414 mls/hr IVC . [id number] [facility] Rx#:[id number] HumuLIN R 100 UNIT In 0.9 % 148.0 / 148.0 61.8 / 61.8 Sodium Chloride 100 ML @ 6.8 UNIT/HR 6.868 mls/hr IVC CONT [facility] Rx#:[id number] Levophed 4 MG In Dextrose 5% 230 / 758 408 / 558 150 / 558 250 ML @ 8 MCG/MIN 30.48 mls/hr IVC CONT [facility] Rx#:[id number] Sodium Bicarbonate 75 MEQ In 0. 1075 / 1075 45% Sodium Chloride 1,000 ML @ 125 mls/hr IVC .[id number] [facility] Rx#: [id number] Sodium Bicarbonate 150 MEQ In 1150 / 2300 1150 / 2300 Dextrose 5% 1,000 ML @ 125 mls/ hr IVC .[id number] [facility] Rx#: [id number] Maxipime 2,000 MG In Water for 20 / 20 inj. (sterile) 20 ML @ 300 mls/ hr IVP Q24H [facility] Rx#:[id number] Calcium Gluconate 2,000 MG In 0 120 / 120 .9 % Sodium Chloride 100 ML @ 220 mls/hr IVPB ONCE ONE Rx#: [id number] Magnesium Sulfate 2 GM In 0.9 % 104 / 104 Sodium Chloride 100 ML @ 104 mls/hr IVPB ONCE ONE Rx#: [id number] Output: Catheter 375 / 825 175 / 275 100 / 275 Gastric Drainage 400 / 400 100 / 150 50 / 150 Other: Weight 127.8 kg Blood Glucose* 216 149 138 - General Appearance General appearance: Present: moderate distress, sedated on ventilator, intubated, fatigue, frail EENT: Present: ATNC, PERRL Additional Comments: Intubated Neck: Present: supple Respiratory: Present: course breath sounds Cardiology: Present: edema, regular rate, regular rhythm, normal S1, normal S2 Gastrointestinal: Present: normoactive bowel sounds, no tenderness, no guarding Integumentary: Present: warm and dry, chronic venous stasis (of the right LE) Neurologic: Present: obtunded (while being sedated on the vent) - Lab 12/04/18 04:27 12/04/18 04:27 Most recent lab results 12/03/18 12/03/18 12/03/18 04:00 04:22 06:23 ABG pH 7.13 L* 7.16 L* ABG pCO2 59 H 56 H ABG pO2 68 L 75 L ABG HCO3 20 L 20 L ABG O2 Saturation 86 L 90 L Calcium 6.3 L Phosphorus 5.5 H Magnesium 1.6 Consult Discharge Plan - Plan Referrals: Kelly Cardozo, RN [Primary Care Provider] -
[2018-12-03] MEDS ORDERED: 0.9 % Sodium Chloride 500 ML ONE (15:16)
[2018-12-03] MEDS: PrismaSATE BGK 4/2.5 5,000 ML CRRT SCH ×4 (15:44→21:00)
[2018-12-03] MEDS: Cefepime HCl 1,000 MG in Water for inj. (sterile) 10 ML IVP SCH (16:52)
[2018-12-03] MEDS ORDERED: *HR* Midazolam HCl 2 MG/2 ML VIAL ONE (20:39)
[2018-12-03] MEDS ORDERED: *HR* Midazolam HCl 2 MG/2 ML VIAL IVP ONE (20:39)
[2018-12-04] MEDS: FentaNYL (PF) 1,000 MCG in 0.9 % Sodium Chloride 80 ML IVC SCH ×3 (00:01→22:10)
[2018-12-04] MEDS: Dexmedetomidine HCl 400 MCG/100 ML MLS IVC SCH ×3 (00:18→05:32)
[2018-12-04] MEDS: Cefepime HCl 1,000 MG in Water for inj. (sterile) 10 ML IVP SCH ×4 (01:01→23:13)
[2018-12-04] MEDS: Artificial Tears SOLN 15 ML BOTTLE BOTH EYES SCH ×7 (01:02→23:16)
[2018-12-04] MEDS: PrismaSATE BGK 4/2.5 5,000 ML CRRT SCH ×11 (02:59→22:20)
[2018-12-04] MEDS: Amiodarone Premix 360 MG/200 ML BAG IVC SCH (03:49)
[2018-12-04] MEDS: Sodium Bicarbonate 150 MEQ in D5% in Water 1,000 ML IVC SCH (03:50)
[2018-12-04] MEDS: Levalbuterol Neb 1.25 MG/3 ML IH SCH ×4 (03:58→21:41)
[2018-12-04] MEDS ORDERED: *HR* Midazolam HCl 2 MG/2 ML VIAL IVP ONE ×2 (04:19→06:21)
[2018-12-04] MEDS ORDERED: *HR* Midazolam HCl 2 MG/2 ML VIAL ONE ×3 (04:20→18:36)
[2018-12-04 04:36] LABS: Basophils % 0.3 %; Eosinophils # 0.4 K/mcL (0.0-0.6); Eosinophils % 3.5 %; Hematocrit 37.6 % (35.3-44.9); Immature Granulocytes % 0.8 % (0-4); Lymphocytes # 0.7 K/mcL (0.6-4.6); Lymphocytes % 6.3 %; Mean Corpuscular HGB Conc 31.9 g/dL (31.6-35.5); Mean Corpuscular Hemoglobin 28.5 pg (28.0-33.3); Mean Corpuscular Volume 89.3 fL (83.0-100.0); Mean Platelet Volume 11.6 fL (9.4-12.4); Monocytes # 0.6 K/mcL (0.0-1.3); Monocytes % 5.5 %; Neutrophils # 9.7 K/mcL (1.6-8.9); Platelet Count 143 K/mcL (140-400); Red Blood Count 4.21 M/mcL (3.82-4.97); Segmented Neutrophils % 83.6 %; White Blood Count 11.7 K/mcL (4.3-11.1)
[2018-12-04 04:39] LABS: ABG Base Excess 2 mEq/L (-2 to 3); ABG HCO3 28 mEq/L (21-27); ABG Oxygen Saturation 95 % (95-98); ABG PCO2 46 mmHg (35-45); ABG PH 7.39 pH Units (7.32-7.45); ABG PO2 78 mmHg (85-104); ABG TCO2 29 mEq/L (20-26); Blood Gas Modality AF; Blood Gas PEEP 8 cm H2O; Blood Gas VT 550 cc
[2018-12-04 04:57] LABS: Calcium 6.6 mg/dL (8.6-10.3); Phosphorous 2.7 mg/dL (2.7-4.5); Potassium 3.6 mEq/L (3.5-5.1)
[2018-12-04] MEDS: Norepinephrine 4 MG in D5% in Water 250 ML IVC SCH ×2 (05:33→22:00)
--- NOTE | 2018-12-04 06:48 | Pulmonology Progress Note ---
<Rufina Heredia - Last Filed: 12/04/18 13:52> Date of Encounter: 12/04/18 Time of Encounter: 06:48 Assessment and Plan (1) Acute and chronic respiratory failure with hypoxia Current Visit: Yes Status: Acute Due to hemodynamic instability with septic stone Currently intubated and sedated with Fentanyl and Precedex Continue scheduled bronchodilators and Symbicort - pt does have hx of COPD and tobacco abuse Continue to monitor closely in the ICU GI prophylaxis with daily Protonix IV (2) Metabolic acidosis Current Visit: Yes Status: Acute ABG showed pH of 7.16 this am with pCO2 56, HCO3 20 Lactic acid normal at 1.5x2 Anion gap 10 Beta-hydroxybutyrate mildly elevated at 0.39 Likely secondary to worsening renal function Nephro consulted Bicarb drip running CRRT started 12/03, pH now 7.39 (3) Sepsis Current Visit: Yes Status: Acute BCx x2 positive for GNR PCR shows E. coli Likely secondary to septic stone with E. coli UTI Dr. Salguero with stent placement 12/01 Pt on IV Cefepime day 4 UCx show E. coli sensativie to cefepime and rocephin, will continue the cefepime and plan to de-escalate once the patient has stabilized WBC decreased today to 11.7 No longer febrile Pt hypotensive with Levophed running Dr. Alejandro placed subclavian central line due to poor access of IJ and femorals Qualifiers: Sepsis type: Escherichia coli Qualified Code(s): A41.51 - Sepsis due to Escherichia coli [E. coli] (4) Atrial fibrillation with RVR Current Visit: Yes Status: Acute Initially placed on Cardizem drip DC'd due to pts hypotension Now on amiodarone drip HR continues to be in the 120s Fever could be a contributing factor to tachycardia Continue to monitor and once BP stabilizes add Cardizem or beta blockers Heparin ggt Patient's heart rate increased to the 150s to 160s and a 150 mg amiodarone bolus was given in addition to the drip This did not significantly decrease patient's heart rate, therefore we will add a one-time dose of 5mg Lopressor Stat echo showed EF of 55% and intedetrminate diastolic function but no other abnormalities Pt rate controlled as of 12/04 on Amio drip (5) Acute kidney injury superimposed on CKD Current Visit: Yes Status: Acute Baseline Cre 1.1 Mild decrease today at 2.65 Suspect relation to septic stone Borderline oliguria - 1225mls out yesterday and 275mls so far today Consultation to nephro placed - appreciate recommendations Continue to monitor and avoid nephrotoxic drugs Pt will begin CRRT today after dialysis catheter placement CRRT started 12/03 - electrolytes, BUN and creatinine stabilizing (6) Ureteral calculi Current Visit: Yes Status: Acute As seen on CT abd and pelvis Urology following and placed a stent on 12/01 (7) UTI (urinary tract infection) Current Visit: Yes Status: Acute E. coli PCR positive with GNR growing in urine Pt on Cefepime day 4 UCx show E. coli sensativie to cefepime and rocephin, will continue the cefepime and plan to de-escalate once the patient has stabilized Qualifiers: Urinary tract infection type: acute pyelonephritis Qualified Code(s): N10 - Acute pyelonephritis (8) Diabetes mellitus Current Visit: Yes Status: Chronic On CRRT Insuline and glucose as per protocol Qualifiers: Diabetes mellitus type: type 2 Diabetes mellitus watermelon inspector insulin use: with watermelon inspector use Diabetes mellitus complication status: with skin complications Diabetes mellitus complication detail: with foot ulcer Qualified Code(s): E11.621 - Type 2 diabetes mellitus with foot ulcer; L97.509 - Non-pressure chronic ulcer of other part of unspecified foot with unspecified severity; Z79.4 - terminologist (current) use of insulin (9) DVT prophylaxis Current Visit: Yes Status: Acute EPCD on RLE Heparin ggt Subjective Interval history: Pt started on CRRT yesterday. She has had success with CRRT as her BUN/creatinine have declined and her ABG has now normalized. Patient requiring more sedation overnight with several doses of Versed given. Sedation was changed to fentanyl and propofol. Pt had CPAP trial this morning and although improving and passed the CPAP trial but with some anxiety, we will keep her intubated for at least one more day until she is more stable. Objective PUL Vital signs: Last Vital Signs Temp 97 F L 12/04/18 06:00 Pulse 91 12/04/18 06:00 Resp 16 12/04/18 06:00 BP 92/48 12/04/18 06:00 Pulse Ox 98 12/04/18 06:00 General appearance: asleep Eyes: nonicteric Effort: normal Auscultation: bilateral: clear, diminished breath sounds Cardiovascular: irregular rhythm, other (regular rate) Gastrointestinal: soft, non-tender Integumentary: normal Extremities: edema (trace), other (right BKA, left toe amputation x5) pupils equal and round Ventilator Settings Ventilator Settings: Ventilator Settings, Last 8 Hours Ventilator Tidal Volume 550 Setting Ventilator Tidal Volume 550 Setting Ventilator Tidal Volume 550 Setting Ventilator Tidal Volume 550 Setting Ventilator Tidal Volume 550 Setting Ventilator Tidal Volume 550 Setting Ventilator Tidal Volume 550 Setting Ventilator Tidal Volume 550 Setting Ventilator Tidal Volume 550 Setting Ventilator Tidal Volume 550 Setting Ventilator Tidal Volume 550 Setting Ventilator Tidal Volume 550 Setting Ventilator Respiratory Rate 16 Setting Ventilator Respiratory Rate 16 Setting Ventilator Respiratory Rate 16 Setting Ventilator Respiratory Rate 16 Setting Ventilator Respiratory Rate 16 Setting Ventilator Respiratory Rate 16 Setting Ventilator Respiratory Rate 16 Setting Ventilator Respiratory Rate 16 Setting Ventilator Respiratory Rate 16 Setting Ventilator Respiratory Rate 16 Setting Ventilator Respiratory Rate 16 Setting Ventilator Respiratory Rate 16 Setting Actual Respiratory Rate 16 Actual Respiratory Rate 16 Actual Respiratory Rate 16 Actual Respiratory Rate 16 Actual Respiratory Rate 16 Actual Respiratory Rate 16 Actual Respiratory Rate 16 Actual Respiratory Rate 16 Actual Respiratory Rate 16 Actual Respiratory Rate 16 Actual Respiratory Rate 16 Positive End Expiratory 8 Pressure Positive End Expiratory 8 Pressure Positive End Expiratory 8 Pressure Positive End Expiratory 8 Pressure Positive End Expiratory 8 Pressure Positive End Expiratory 8 Pressure Positive End Expiratory 8 Pressure Positive End Expiratory 8 Pressure Positive End Expiratory 8 Pressure Positive End Expiratory 8 Pressure Positive End Expiratory 8 Pressure Positive End Expiratory 8 Pressure Peak Inspiratory Airway 35 Pressure Peak Inspiratory Airway 35 Pressure Peak Inspiratory Airway 35 Pressure Peak Inspiratory Airway 34 Pressure Peak Inspiratory Airway 34 Pressure Peak Inspiratory Airway 33 Pressure Peak Inspiratory Airway 34 Pressure Peak Inspiratory Airway 34 Pressure Peak Inspiratory Airway 28 Pressure Peak Inspiratory Airway 34 Pressure Peak Inspiratory Airway 30 Pressure Results - Laboratory Findings CBC and BMP: 12/04/18 04:27 12/04/18 04:27 ABG ABG pH 7.39 pH Units (7.32-7.45) 12/04/18 04:34 ABG pCO2 46 mmHg (35-45) H 12/04/18 04:34 ABG pO2 78 mmHg (85-104) L 12/04/18 04:34 ABG O2 Saturation 95 % (95-98) 12/04/18 04:34 PT/INR, D-dimer PT 13.7 Seconds (9.4-12.1) H 12/03/18 11:55 Abnormal lab findings: Abnormal lab results WBC 11.7 K/mcL (4.3-11.1) H 12/04/18 04:27 Hct 45.3 % (35.3-44.9) H 12/01/18 03:19 MCHC 31.0 g/dL (31.6-35.5) L 12/03/18 04:00 RDW 16.0 % (11.5-14.5) H 12/04/18 04:27 Neutrophils # 9.7 K/mcL (1.6-8.9) H 12/04/18 04:27 Nucleated RBCs/100 WBC 0.1 /100 WBC (0) H 12/02/18 04:21 PT 13.7 Seconds (9.4-12.1) H 12/03/18 11:55 APTT 36.4 Seconds (26.0-36.0) H 12/01/18 03:19 Heparin Anti-Xa, Unfract 0.24 IU/mL (0.30-0.70) L 12/04/18 04:00 ABG pH 7.16 pH Units (7.32-7.45) L* 12/03/18 06:23 ABG pCO2 46 mmHg (35-45) H 12/04/18 04:34 ABG pO2 78 mmHg (85-104) L 12/04/18 04:34 ABG HCO3 28 mEq/L (21-27) H 12/04/18 04:34 ABG Total CO2 29 mEq/L (20-26) H 12/04/18 04:34 ABG O2 Saturation 90 % (95-98) L 12/03/18 06:23 ABG Base Excess -9 mEq/L (-2 to 3) L 12/03/18 06:23 Sodium 134 mEq/L (136-145) L 12/04/18 04:27 Chloride 111 mEq/L (98-107) H 12/02/18 04:21 Carbon Dioxide 19 mEq/L (23-29) L 12/03/18 04:00 BUN 28 mg/dL (8-23) H 12/04/18 04:27 Creatinine 1.76 mg/dL (0.60-1.20) H 12/04/18 04:27 Est GFR ( Amer) 35 (> 60) L 12/04/18 04:27 Est GFR (Non-Af Amer) 29 (> 60) L 12/04/18 04:27 Glucose 136 mg/dL (70-105) H 12/04/18 04:27 POC Glucose 157 mg/dL (70-99) H 12/03/18 18:49 Hemoglobin A1c 8.6 % (-5.6) H 12/01/18 03:19 Calculated Osmolality 305 (280-300) H 12/02/18 12:01 Calcium 6.6 mg/dL (8.6-10.3) L 12/04/18 04:27 Phosphorus 5.5 mg/dL (2.7-4.5) H 12/03/18 04:00 Magnesium 1.4 mg/dL (1.6-2.6) L 12/02/18 04:21 Serum Total Protein 6.1 g/dL (6.4-8.9) L 12/01/18 03:19 Albumin 3.3 g/dL (3.5-5.7) L 12/01/18 03:19 Prealbumin 3.4 mg/dL (17.0-34.0) L 12/03/18 04:00 HDL Cholesterol 22 mg/dL (40-59) L 12/01/18 03:19 Urine Clarity Cloudy (Clear) A 12/01/18 04:23 Urine Blood Moderate (Negative) H 12/01/18 04:23 Urine Nitrite Positive (Negative) A 12/01/18 04:23 Ur Leukocyte Esterase Large (Negative) H 12/01/18 04:23 Urine Microscopic WBC 3-5 per hpf (0-3) H 12/01/18 04:23 Ur Squamous Epith Cells Many per lpf (None-Few) H 12/01/18 04:23 Urine Bacteria Moderate per hpf (None-Few) H 12/01/18 04:23 E. coli (PCR) DETECTED (Not Detect) A 12/01/18 03:50 - Microbiology Findings Microbiology Findings: Microbiology, Last 48 Hours 12/01/18 03:50 Blood Culture - Final Peripheral Venipuncture Escherichia coli 12/01/18 03:59 Blood Culture - Final Peripheral Venipuncture Escherichia coli 12/01/18 04:23 Urine Culture - Final Urine,Clean Catch Escherichia coli 12/01/18 08:11 Surgical Biopsy Culture - Preliminary Left Kidney 12/02/18 07:08 Blood Culture - Preliminary Peripheral Venipuncture Culture is incubating and being continuously monitored for growth. Final report to follow. 12/02/18 07:08 Blood Culture - Preliminary Peripheral Venipuncture Culture is incubating and being continuously monitored for growth. Final report to follow. - Clinical Findings Intake & Output: Intake & Output 12/03/18 12/03/18 12/04/18 15:59 23:59 07:59 Intake Total 2260.9 / 6647.8 1869.0 / 6647.8 1807.1 / 1807.1 Output Total 150 / 2213 1499 / 2213 1750 / 1750 Balance 2110.9 / 4434.8 370.0 / 4434.8 57.1 / 57.1 Weight 127.8 kg 127.8 kg Consult Discharge Plan - Plan Referrals: Kelly Cardozo, RN [Primary Care Provider] - <Tori Real - Last Filed: 12/04/18 14:59> Date of Encounter: 12/04/18 Objective PUL Vital signs: Last Vital Signs Temp 97 F L 12/04/18 08:00 Pulse 82 12/04/18 10:00 Resp 16 12/04/18 10:00 BP 107/51 12/04/18 10:00 Pulse Ox 96 12/04/18 10:00 Ventilator Settings Ventilator Settings: Ventilator Settings, Last 8 Hours Ventilator Tidal Volume 550 Setting Ventilator Tidal Volume 550 Setting Ventilator Tidal Volume 550 Setting Ventilator Tidal Volume 550 Setting Ventilator Tidal Volume 550 Setting Ventilator Tidal Volume 550 Setting Ventilator Tidal Volume 550 Setting Ventilator Tidal Volume 550 Setting Ventilator Tidal Volume 550 Setting Ventilator Tidal Volume 550 Setting Ventilator Tidal Volume 550 Setting Ventilator Tidal Volume 550 Setting Ventilator Respiratory Rate 16 Setting Ventilator Respiratory Rate 16 Setting Ventilator Respiratory Rate 16 Setting Ventilator Respiratory Rate 16 Setting Ventilator Respiratory Rate 16 Setting Ventilator Respiratory Rate 16 Setting Ventilator Respiratory Rate 16 Setting Ventilator Respiratory Rate 16 Setting Ventilator Respiratory Rate 16 Setting Ventilator Respiratory Rate 16 Setting Ventilator Respiratory Rate 16 Setting Ventilator Respiratory Rate 16 Setting Actual Respiratory Rate 16 Actual Respiratory Rate 16 Actual Respiratory Rate 16 Actual Respiratory Rate 16 Actual Respiratory Rate 16 Actual Respiratory Rate 16 Actual Respiratory Rate 16 Actual Respiratory Rate 16 Actual Respiratory Rate 16 Actual Respiratory Rate 16 Actual Respiratory Rate 16 Positive End Expiratory 8 Pressure Positive End Expiratory 8 Pressure Positive End Expiratory 8 Pressure Positive End Expiratory 8 Pressure Positive End Expiratory 8 Pressure Positive End Expiratory 8 Pressure Positive End Expiratory 8 Pressure Positive End Expiratory 8 Pressure Positive End Expiratory 8 Pressure Positive End Expiratory 8 Pressure Positive End Expiratory 8 Pressure Positive End Expiratory 8 Pressure Peak Inspiratory Airway 34 Pressure Peak Inspiratory Airway 34 Pressure Peak Inspiratory Airway 34 Pressure Peak Inspiratory Airway 34 Pressure Peak Inspiratory Airway 34 Pressure Peak Inspiratory Airway 32 Pressure Peak Inspiratory Airway 35 Pressure Peak Inspiratory Airway 35 Pressure Peak Inspiratory Airway 35 Pressure Peak Inspiratory Airway 34 Pressure Peak Inspiratory Airway 34 Pressure Results - Laboratory Findings CBC and BMP: 12/04/18 04:27 12/04/18 04:27 ABG ABG pH 7.39 pH Units (7.32-7.45) 12/04/18 04:34 ABG pCO2 46 mmHg (35-45) H 12/04/18 04:34 ABG pO2 78 mmHg (85-104) L 12/04/18 04:34 ABG O2 Saturation 95 % (95-98) 12/04/18 04:34 PT/INR, D-dimer PT 13.7 Seconds (9.4-12.1) H 12/03/18 11:55 Abnormal lab findings: Abnormal lab results WBC 11.7 K/mcL (4.3-11.1) H 12/04/18 04:27 Hct 45.3 % (35.3-44.9) H 12/01/18 03:19 MCHC 31.0 g/dL (31.6-35.5) L 12/03/18 04:00 RDW 16.0 % (11.5-14.5) H 12/04/18 04:27 Neutrophils # 9.7 K/mcL (1.6-8.9) H 12/04/18 04:27 Nucleated RBCs/100 WBC 0.1 /100 WBC (0) H 12/02/18 04:21 PT 13.7 Seconds (9.4-12.1) H 12/03/18 11:55 APTT 36.4 Seconds (26.0-36.0) H 12/01/18 03:19 Heparin Anti-Xa, Unfract 0.24 IU/mL (0.30-0.70) L 12/04/18 04:00 ABG pH 7.16 pH Units (7.32-7.45) L* 12/03/18 06:23 ABG pCO2 46 mmHg (35-45) H 12/04/18 04:34 ABG pO2 78 mmHg (85-104) L 12/04/18 04:34 ABG HCO3 28 mEq/L (21-27) H 12/04/18 04:34 ABG Total CO2 29 mEq/L (20-26) H 12/04/18 04:34 ABG O2 Saturation 90 % (95-98) L 12/03/18 06:23 ABG Base Excess -9 mEq/L (-2 to 3) L 12/03/18 06:23 Sodium 134 mEq/L (136-145) L 12/04/18 04:27 Chloride 111 mEq/L (98-107) H 12/02/18 04:21 Carbon Dioxide 19 mEq/L (23-29) L 12/03/18 04:00 BUN 28 mg/dL (8-23) H 12/04/18 04:27 Creatinine 1.76 mg/dL (0.60-1.20) H 12/04/18 04:27 Est GFR ( Amer) 35 (> 60) L 12/04/18 04:27 Est GFR (Non-Af Amer) 29 (> 60) L 12/04/18 04:27 Glucose 136 mg/dL (70-105) H 12/04/18 04:27 POC Glucose 157 mg/dL (70-99) H 12/03/18 18:49 Hemoglobin A1c 8.6 % (-5.6) H 12/01/18 03:19 Calculated Osmolality 305 (280-300) H 12/02/18 12:01 Calcium 6.6 mg/dL (8.6-10.3) L 12/04/18 04:27 Phosphorus 5.5 mg/dL (2.7-4.5) H 12/03/18 04:00 Magnesium 1.4 mg/dL (1.6-2.6) L 12/02/18 04:21 Serum Total Protein 6.1 g/dL (6.4-8.9) L 12/01/18 03:19 Albumin 3.3 g/dL (3.5-5.7) L 12/01/18 03:19 Prealbumin 3.4 mg/dL (17.0-34.0) L 12/03/18 04:00 HDL Cholesterol 22 mg/dL (40-59) L 12/01/18 03:19 Urine Clarity Cloudy (Clear) A 12/01/18 04:23 Urine Blood Moderate (Negative) H 12/01/18 04:23 Urine Nitrite Positive (Negative) A 12/01/18 04:23 Ur Leukocyte Esterase Large (Negative) H 12/01/18 04:23 Urine Microscopic WBC 3-5 per hpf (0-3) H 12/01/18 04:23 Ur Squamous Epith Cells Many per lpf (None-Few) H 12/01/18 04:23 Urine Bacteria Moderate per hpf (None-Few) H 12/01/18 04:23 E. coli (PCR) DETECTED (Not Detect) A 12/01/18 03:50 - Microbiology Findings Microbiology Findings: Microbiology, Last 48 Hours 12/01/18 08:11 Surgical Biopsy Culture - Preliminary Left Kidney Gram Positive Cocci Gram Negative Daniel Gram Negative Daniel#2 12/01/18 08:11 Anaerobic Culture - Preliminary Left Kidney Culture is incubating. 12/01/18 03:50 Blood Culture - Final Peripheral Venipuncture Escherichia coli 12/01/18 03:59 Blood Culture - Final Peripheral Venipuncture Escherichia coli 12/01/18 04:23 Urine Culture - Final Urine,Clean Catch Escherichia coli 12/02/18 07:08 Blood Culture - Preliminary Peripheral Venipuncture Culture is incubating and being continuously monit ored for growth. Final report to follow. 12/02/18 07:08 Blood Culture - Preliminary Peripheral Venipuncture Culture is incubating and being continuously monitored for growth. Final report to follow. - Clinical Findings Intake & Output: Intake & Output 12/03/18 12/04/18 12/04/18 23:59 07:59 15:59 Intake Total 1869.0 / 6647.8 2623.1 / 2902.1 279 / 2902.1 Output Total 1499 / 2213 1970 / 2535 565 / 2535 Balance 370.0 / 4434.8 653.1 / 367.1 -286 / 367.1 Weight 127.8 kg 127.8 kg 127.8 kg - Attending Attestation I examined this patient and my medical decision-making was reviewed with the Resident Physician. I agree with the documented findings, disposition and treatment plan as described except to the extent set forth below. Patient seen and examined. Labs, radiology, chart personally reviewed. Agree with resident's history and physical, assessment, plan with following comments: STAFF RESPIRATORY THERAPIST: Patient does not follows commands, will not sedation for the vent synchrony and weaning called sedation patient become agitated. Pulmonary: Acceptable oxygenation and ventilation and I was told that patient did not do good on her spontaneous breathing trial this morning, however after weaning called sedation again and another trial was done with overall reasonable numbers, however with her agitation as well as underlying septic shock, clinically she is not completely stable for extubation and we will try again tomorrow morning and resume sedation and try to keep her as comfortable and light sedation as possible. Cardiovascular: Septic shock, however I suspect sedation has something to do with the hypotension since blood pressure is improved with spontaneous breathing trial. GI: Nutrition per dietary and GI prophylaxis per routine Heme: DVT prophylaxis per routine ID: Continue antibiotics and plan to de-escalation Renal; urine out put and renal function reviewed. Stop bicarb drip and continue CRRT. I would be helpful if starting more aggressive fluid removal. Endorcine: blood glucose is monitored Lines: all lines checked and no evidence of infections Skin: skin care to prevent pressure ulcers per nursing routine care Dispo: ICU Code: Full. Prognosis. Guarded I spent 33 min of Critical Care time with this patient. It involved decision making of high complexity to assess, manipulate, and support vital organ system failure and/or to prevent further life threatening deterioration of the patient's condition. The time involved in the performance of separately reportable procedures was not counted toward critical care time.
[2018-12-04] MEDS: Chlorhexidine Rinse 15 ML MOUTHWASH MM SCH ×2 (07:30→20:03)
[2018-12-04] MEDS: Pantoprazole 40 MG VIAL IVP SCH (07:30)
[2018-12-04] MEDS: Budesonide/Formoterol 160/4.5 1 PUFF INH IH SCH ×2 (09:57→21:41)
[2018-12-04] MEDS: Heparin 25,000 UNIT/250 ML D5W 25,000 UNIT/250 ML IV.SOLN IVC SCH (11:12)
[2018-12-04] MEDS ORDERED: D5% in Water 1,000 ML IVC PRN (11:23)
[2018-12-04] MEDS ORDERED: Dextrose Gel 15 GM/37.5 ML TUBE PO PRN ×2 (11:23)
[2018-12-04] MEDS ORDERED: *HR* Dextrose 50 % in Water (Syg) 50 ML SYRINGE IVP PRN (11:23)
[2018-12-04] MEDS: *HR* Amiodarone 200 MG TABLET PO SCH (12:32)
[2018-12-04] MEDS: Insulin LISPRO 300 UNITS/3 ML VIAL SQ SCH ×4 (12:35→23:48)
--- NOTE | 2018-12-04 18:27 | Nephrology Progress Note ---
Date of Encounter: 12/04/18 Time of Encounter: 12:00 - Assessment and Plan (1) Acute kidney injury superimposed on CKD Current Visit: Yes Status: Acute Continue CVVHDF as prescribed with even fluid balance for now Will discontinue bicarb gtt, no longer need UOP noted at 345cc in the past 24hrs, oliguric Continue to avoid nephrotoxins if possible (2) Sepsis Current Visit: Yes Status: Deleted Antibiotics as per primary with renal dosing. Qualifiers: Sepsis type: sepsis due to unspecified organism Qualified Code(s): A41.9 - Sepsis, unspecified organism; R65.20 - Severe sepsis without septic shock (3) Acute and chronic respiratory failure with hypoxia Current Visit: Yes Status: Acute Vent management per primary team (4) Hydronephrosis Current Visit: Yes Status: Acute per urology, previously seen Qualifiers: Hydronephrosis type: with ureteral calculous obstruction Qualified Code(s): N13.2 - Hydronephrosis with renal and ureteral calculous obstruction (5) Metabolic acidosis Current Visit: Yes Status: Acute Resolved. Bicarbonate drip stopped today. Subjective Principal diagnosis: RANCHO Interval history: Interim noted, Pt seen and examined intubated and sedated on CRRT Objective - Vital Signs Vital signs: Vital Signs Temp Pulse Resp BP Pulse Ox 12/04/18 18:00 92 16 97/52 93 12/04/18 17:00 97.9 F 92 16 102/53 93 12/04/18 16:00 97 16 105/52 94 12/04/18 15:20 16 94 12/04/18 15:00 97.9 F 100 16 103/49 95 12/04/18 14:00 92 103/50 12/04/18 13:00 104 16 107/50 96 12/04/18 12:00 100 17 99/48 93 12/04/18 11:00 97.5 F L 92 16 70/38 93 12/04/18 10:00 82 16 107/51 96 12/04/18 09:00 87 16 97/49 97 12/04/18 08:00 97 F L 89 16 105/50 97 12/04/18 07:30 88 12/04/18 07:03 16 98 12/04/18 07:00 96.8 F L 83 16 107/53 98 12/04/18 06:00 97 F L 91 16 92/48 98 12/04/18 05:35 16 121/59 97 12/04/18 05:00 97 F L 91 16 119/58 98 12/04/18 04:00 96.8 F L 89 16 113/56 98 12/04/18 03:58 17 106/54 97 12/04/18 03:00 96.9 F L 92 16 121/62 98 12/04/18 02:00 96.9 F L 92 16 118/60 97 12/04/18 01:22 16 114/58 98 12/04/18 01:00 97.1 F L 92 16 117/60 97 12/04/18 00:12 88 12/04/18 00:00 97.3 F L 88 16 112/59 97 12/03/18 23:41 16 104/56 97 12/03/18 23:00 96.7 F L 105 16 110/60 97 12/03/18 22:00 96.8 F L 113 16 105/59 97 12/03/18 21:41 16 108/60 97 12/03/18 21:00 95.7 F L 113 16 107/61 96 12/03/18 20:00 95.8 F L 101 16 116/62 97 12/03/18 19:41 16 118/64 97 12/03/18 19:39 91 12/03/18 19:00 95.8 F L 93 16 99/55 95 12/03/18 18:55 97.5 F L Intake and Output 12/04/18 12/04/18 12/04/18 07:59 15:59 23:59 Intake Total 2623.1 / 3635.1 819 / 3635.1 193 / 3635.1 Output Total 1970 / 3431 1193 / 3431 268 / 3431 Balance 653.1 / 204.1 -374 / 204.1 -75 / 204.1 Intake: IV Fluids 2538.1 / 3307.1 637 / 3307.1 132 / 3307.1 PrismaSATE BGK 4/2.5 5,000 ML @ 0 / 0 0 / 0 0 / 0 1000 mls/hr CRRT CONT [facility] Rx#: [id number] Amiodarone Drip Premix 360mg/ 191.5 / 256.5 65 / 256.5 200mL 360 mg In 200 ml @ 0.5 MG /MIN 16.667 mls/hr IVC CONT [facility] Rx#:[id number] Precedex Premix 400 mcg In 100 367 / 367 ml @ 0.2 MCG/KG/HR 5.505 mls/hr IVC .[id number] [facility] Rx#: [id number] FentaNYL (PF) 1,000 MCG In 0.9 88.2 / 171.2 69 / 171.2 14 / 171.2 % Sodium Chloride 80 ML @ 50 MCG/HR 5 mls/hr IVC CONT [facility] Rx #:[id number] Heparin 25,000 UNIT/250 ML D5W 187 / 362 141 / 362 34 / 362 25,000 unit In 250 ml @ 14 UNIT /KG/HR 15.414 mls/hr IVC . [id number] [facility] Rx#:[id number] HumuLIN R 100 UNIT In 0.9 % 50 / 54 4 / 54 Sodium Chloride 100 ML @ 6.8 UNIT/HR 6.868 mls/hr IVC CONT [facility] Rx#:[id number] Levophed 4 MG In Dextrose 5% 137.4 / 293.4 125 / 293.4 31 / 293.4 250 ML @ 8 MCG/MIN 30.48 mls/hr IVC CONT [facility] Rx#:[id number] Diprivan 1,000 mg In 100 ml @ 141 / 194 53 / 194 20 MCG/KG/MIN 15.336 mls/hr IVC .Q6H32M [facility] Rx#:[id number] Sodium Bicarbonate 150 MEQ In 1497 / 1579 82 / 1579 Dextrose 5% 1,000 ML @ 125 mls/ hr IVC .Q9H12M [facility] Rx#: [id number] Maxipime 1,000 MG In Water for 20 / 30 10 / 30 inj. (sterile) 10 ML @ 300 mls/ hr IVP Q8HR [facility] Rx#:[id number] Tube Feeding 85 / 298 152 / 298 61 / 298 Free Water 30 / 30 Output: Catheter 365 / 650 195 / 650 90 / 650 Gastric Drainage 0 / 0 Fluid Removed by Prismaflex 1605 / 2781 998 / 2781 178 / 2781 Other: Weight 127.8 kg 127.8 kg 127.8 kg Blood Glucose* 131 178 Patient Weight 12/04/18 23:59 Weight 127.8 kg - General Appearance General appearance: Present: sedated on ventilator, intubated EENT: Present: ATNC, mucous membranes moist Neck: Present: no JVD, supple Respiratory: Present: course breath sounds Cardiology: Present: edema (generalized), normal S1, fixed split S2 Dialysis Vascular Access: Venous Catheter (temp line) Gastrointestinal: Present: no tenderness, no guarding, obese Integumentary: Present: warm and dry Additional Comments: sedated Musculoskeletal: Present: no deformities Additional Comments: sedated - Lab 12/22/18 05:00 12/22/18 05:00 Consult Discharge Plan - Plan Referrals: Kelly Cardozo CNP [Primary Care Provider] -
[2018-12-04] MEDS: *HR* Midazolam HCl 2 MG/2 ML VIAL IVP PRN ×2 (18:49→23:12)
[2018-12-05] MEDS: *HR* Midazolam HCl 2 MG/2 ML VIAL IVP PRN ×3 (01:13→05:16)
[2018-12-05] MEDS: Heparin 25,000 UNIT/250 ML D5W 25,000 UNIT/250 ML IV.SOLN IVC SCH ×2 (01:34→16:23)
[2018-12-05] MEDS: Artificial Tears SOLN 15 ML BOTTLE BOTH EYES SCH ×6 (03:26→23:16)
[2018-12-05] MEDS: Levalbuterol Neb 1.25 MG/3 ML IH SCH ×4 (03:28→21:41)
[2018-12-05] MEDS: Insulin LISPRO 300 UNITS/3 ML VIAL SQ SCH ×6 (03:43→23:16)
[2018-12-05] MEDS: PrismaSATE BGK 4/2.5 5,000 ML CRRT SCH ×10 (03:45→23:41)
[2018-12-05 03:57] LABS: Basophils # 0.1 K/mcL (0.0-0.2); Basophils % 0.5 %; Eosinophils # 0.5 K/mcL (0.0-0.6); Eosinophils % 4.7 %; Hemoglobin 12.1 g/dL (11.5-15.4); Immature Granulocytes % 2.2 % (0-4); Lymphocytes # 0.8 K/mcL (0.6-4.6); Lymphocytes % 7.4 %; Mean Corpuscular HGB Conc 31.8 g/dL (31.6-35.5); Mean Corpuscular Hemoglobin 28.5 pg (28.0-33.3); Mean Corpuscular Volume 89.4 fL (83.0-100.0); Mean Platelet Volume 12.4 fL (9.4-12.4); Monocytes # 0.5 K/mcL (0.0-1.3); Neutrophils # 8.1 K/mcL (1.6-8.9); Nucleated Red Blood Cells 0.5 /100 WBC (0); Platelet Count 147 K/mcL (140-400); Red Blood Count 4.25 M/mcL (3.82-4.97); Red Cell Distribution Width 16.5 % (11.5-14.5); Segmented Neutrophils % 80.2 %; White Blood Count 10.1 K/mcL (4.3-11.1)
[2018-12-05 04:15] LABS: Calcium 7.5 mg/dL (8.6-10.3); Magnesium 2.3 mg/dL (1.6-2.6); Potassium 3.6 mEq/L (3.5-5.1)
[2018-12-05] MEDS ORDERED: *HR* Metoprolol 5 MG/5 ML VIAL IVP ONE ×2 (04:24→04:25)
[2018-12-05 04:25] LABS: ABG Base Excess 2 mEq/L (-2 to 3); ABG HCO3 28 mEq/L (21-27); ABG Oxygen Saturation 88 % (95-98); ABG PCO2 48 mmHg (35-45); ABG PH 7.38 pH Units (7.32-7.45); ABG PO2 56 mmHg (85-104); ABG TCO2 30 mEq/L (20-26); Blood Gas Modality ASSIST CONTROL; Blood Gas PEEP 8 cm H2O; Blood Gas VT 550 cc
[2018-12-05] MEDS: FentaNYL (PF) 1,000 MCG in 0.9 % Sodium Chloride 80 ML IVC SCH ×3 (05:00→21:00)
--- NOTE | 2018-12-05 07:12 | Pulmonology Progress Note ---
<AddieTracemicaela M - Last Filed: 12/05/18 10:02> Date of Encounter: 12/05/18 Objective PUL Vital signs: Last Vital Signs Temp 98.6 F 12/05/18 07:24 Pulse 136 12/05/18 09:00 Resp 14 12/05/18 09:00 BP 114/53 12/05/18 09:00 Pulse Ox 92 12/05/18 09:00 Ventilator Settings Ventilator Settings: Ventilator Settings, Last 8 Hours Ventilator Tidal Volume 550 Setting Ventilator Tidal Volume 550 Setting Ventilator Tidal Volume 550 Setting Ventilator Tidal Volume 550 Setting Ventilator Tidal Volume 550 Setting Ventilator Tidal Volume 550 Setting Ventilator Tidal Volume 550 Setting Ventilator Tidal Volume 550 Setting Ventilator Tidal Volume 550 Setting Ventilator Tidal Volume 550 Setting Ventilator Tidal Volume 550 Setting Ventilator Respiratory Rate 14 Setting Ventilator Respiratory Rate 16 Setting Ventilator Respiratory Rate 16 Setting Ventilator Respiratory Rate 16 Setting Ventilator Respiratory Rate 16 Setting Ventilator Respiratory Rate 16 Setting Ventilator Respiratory Rate 16 Setting Ventilator Respiratory Rate 16 Setting Ventilator Respiratory Rate 16 Setting Ventilator Respiratory Rate 16 Setting Ventilator Respiratory Rate 16 Setting Actual Respiratory Rate 16 Actual Respiratory Rate 16 Actual Respiratory Rate 22 Actual Respiratory Rate 16 Actual Respiratory Rate 16 Actual Respiratory Rate 16 Actual Respiratory Rate 16 Actual Respiratory Rate 16 Positive End Expiratory 5 Pressure Positive End Expiratory 8 Pressure Positive End Expiratory 8 Pressure Positive End Expiratory 8 Pressure Positive End Expiratory 8 Pressure Positive End Expiratory 8 Pressure Positive End Expiratory 8 Pressure Positive End Expiratory 8 Pressure Positive End Expiratory 8 Pressure Positive End Expiratory 8 Pressure Positive End Expiratory 8 Pressure Peak Inspiratory Airway 36 Pressure Peak Inspiratory Airway 36 Pressure Peak Inspiratory Airway 37 Pressure Peak Inspiratory Airway 37 Pressure Peak Inspiratory Airway 37 Pressure Peak Inspiratory Airway 35 Pressure Peak Inspiratory Airway 36 Pressure Peak Inspiratory Airway 35 Pressure Peak Inspiratory Airway 33 Pressure Peak Inspiratory Airway 33 Pressure Results - Laboratory Findings CBC and BMP: 12/05/18 03:40 12/05/18 03:40 ABG ABG pH 7.38 pH Units (7.32-7.45) 12/05/18 04:22 ABG pCO2 48 mmHg (35-45) H 12/05/18 04:22 ABG pO2 56 mmHg (85-104) L 12/05/18 04:22 ABG O2 Saturation 88 % (95-98) L 12/05/18 04:22 PT/INR, D-dimer PT 13.7 Seconds (9.4-12.1) H 12/03/18 11:55 Abnormal lab findings: Abnormal lab results WBC 11.7 K/mcL (4.3-11.1) H 12/04/18 04:27 Hct 45.3 % (35.3-44.9) H 12/01/18 03:19 MCHC 31.0 g/dL (31.6-35.5) L 12/03/18 04:00 RDW 16.5 % (11.5-14.5) H 12/05/18 03:40 Neutrophils # 9.7 K/mcL (1.6-8.9) H 12/04/18 04:27 Nucleated RBCs/100 WBC 0.5 /100 WBC (0) H 12/05/18 03:40 PT 13.7 Seconds (9.4-12.1) H 12/03/18 11:55 APTT 36.4 Seconds (26.0-36.0) H 12/01/18 03:19 Heparin Anti-Xa, Unfract 0.24 IU/mL (0.30-0.70) L 12/04/18 04:00 ABG pH 7.16 pH Units (7.32-7.45) L* 12/03/18 06:23 ABG pCO2 48 mmHg (35-45) H 12/05/18 04:22 ABG pO2 56 mmHg (85-104) L 12/05/18 04:22 ABG HCO3 28 mEq/L (21-27) H 12/05/18 04:22 ABG Total CO2 30 mEq/L (20-26) H 12/05/18 04:22 ABG O2 Saturation 88 % (95-98) L 12/05/18 04:22 ABG Base Excess -9 mEq/L (-2 to 3) L 12/03/18 06:23 Sodium 134 mEq/L (136-145) L 12/05/18 03:40 Chloride 111 mEq/L (98-107) H 12/02/18 04:21 Carbon Dioxide 19 mEq/L (23-29) L 12/03/18 04:00 BUN 28 mg/dL (8-23) H 12/04/18 04:27 Creatinine 1.26 mg/dL (0.60-1.20) H 12/05/18 03:40 Est GFR ( Amer) 52 (> 60) L 12/05/18 03:40 Est GFR (Non-Af Amer) 43 (> 60) L 12/05/18 03:40 Glucose 174 mg/dL (70-105) H 12/05/18 03:40 POC Glucose 195 mg/dL (70-99) H 12/04/18 23:40 Hemoglobin A1c 8.6 % (-5.6) H 12/01/18 03:19 Calculated Osmolality 305 (280-300) H 12/02/18 12:01 Calcium 7.5 mg/dL (8.6-10.3) L 12/05/18 03:40 Phosphorus 2.0 mg/dL (2.7-4.5) L 12/05/18 03:40 Magnesium 1.4 mg/dL (1.6-2.6) L 12/02/18 04:21 Serum Total Protein 6.1 g/dL (6.4-8.9) L 12/01/18 03:19 Albumin 3.3 g/dL (3.5-5.7) L 12/01/18 03:19 Prealbumin 3.4 mg/dL (17.0-34.0) L 12/03/18 04:00 HDL Cholesterol 22 mg/dL (40-59) L 12/01/18 03:19 Urine Clarity Cloudy (Clear) A 12/01/18 04:23 Urine Blood Moderate (Negative) H 12/01/18 04:23 Urine Nitrite Positive (Negative) A 12/01/18 04:23 Ur Leukocyte Esterase Large (Negative) H 12/01/18 04:23 Urine Microscopic WBC 3-5 per hpf (0-3) H 12/01/18 04:23 Ur Squamous Epith Cells Many per lpf (None-Few) H 12/01/18 04:23 Urine Bacteria Moderate per hpf (None-Few) H 12/01/18 04:23 E. coli (PCR) DETECTED (Not Detect) A 12/01/18 03:50 - Microbiology Findings Microbiology Findings: Microbiology, Last 48 Hours 12/01/18 08:11 Surgical Biopsy Culture - Preliminary Left Kidney Gram Positive Cocci Proteus mirabilis Escherichia coli 12/01/18 08:11 Anaerobic Culture - Preliminary Left Kidney At this time, no anaerobic growth is present. The culture will be finalized after 5 days of incubation. 12/01/18 03:50 Blood Culture - Final Peripheral Venipuncture Escherichia coli 12/01/18 03:59 Blood Culture - Final Peripheral Venipuncture Escherichia coli 12/01/18 04:23 Urine Culture - Final Urine,Clean Catch Escherichia coli - Clinical Findings Intake & Output: Intake & Output 12/04/18 12/05/18 12/05/18 23:59 07:59 15:59 Intake Total 745 / 4281.1 840 / 893 53 / 893 Output Total 789 / 4059 883 / 1016 133 / 1016 Balance -44 / 222.1 -43 / -123 -80 / -123 Weight 127.8 kg 127.8 kg 127.8 kg Consult Discharge Plan - Plan Referrals: Kelly Cardozo, RN [Primary Care Provider] - - Attending Attestation I examined this patient and my medical decision-making was reviewed with the Resident Physician. I agree with the documented findings, disposition and treatment plan as described except to the extent set forth below. Patient seen and examined. Labs, radiology, chart personally reviewed. 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 We will add Zyprexia and hopefully that will help to wean patient off. Pulmonary: Acceptable oxygenation and ventilation. Her PEEP was decreased and respiratory rate since there is still evidence of intrinsic PEEP and at this time the goal would be fluid removal as much as possible. Cardiovascular: Patient still requiring a very low dose vasopressor which I suspect could be related to sedation GI: Nutrition per dietary and GI prophylaxis per routine Heme: DVT prophylaxis per routine ID: Continue antibiotics and plan to de-escalation Renal; urine out put and renal function reviewed. Patient is still ongoing replacement therapy and will discuss with nephrology regarding more aggressive fluid removal even if we need to increase her vasopressor. Endorcine: blood glucose is monitored Lines: all lines checked and no evidence of infections Skin: skin care to prevent pressure ulcers per nursing routine care Dispo: ICU Code: Full. Prognosis. Guarded I spent 35 min of Critical Care time with this patient. It involved decision making of high complexity to assess, manipulate, and support vital organ system failure and/or to prevent further life threatening deterioration of the patient's condition. The time involved in the performance of separately reportable procedures was not counted toward critical care time. <Rufina Heredia Nuris - Last Filed: 12/05/18 11:57> Date of Encounter: 12/05/18 Time of Encounter: 07:12 Assessment and Plan (1) Acute and chronic respiratory failure with hypoxia Current Visit: Yes Status: Acute Due to hemodynamic instability with septic stone Currently intubated and sedated with Fentanyl and Propofol Adding Klonopin for anxiety control Continue scheduled bronchodilators and Symbicort - pt does have hx of COPD and tobacco abuse Continue to monitor closely in the ICU GI prophylaxis with daily Protonix IV (2) Metabolic acidosis Current Visit: Yes Status: Acute ABG showed pH of 7.16 this am with pCO2 56, HCO3 20 Lactic acid normal at 1.5x2 Anion gap 10 Beta-hydroxybutyrate mildly elevated at 0.39 Likely secondary to worsening renal function Nephro consulted Bicarb drip running CRRT started 12/03, pH now 7.38 (3) Sepsis Current Visit: Yes Status: Acute BCx x2 positive for GNR PCR shows E. coli Likely secondary to septic stone with E. coli UTI Dr. Salguero with stent placement 12/01 Pt on IV Cefepime day 5 UCx show E. coli Wound cultures show E. coli and Proteus with a third species currently growing - both sensitive to cefepime WBC decreased today to 10.1 No longer febrile Pt hypotensive with Levophed running Dr. Alejandro placed subclavian central line due to poor access of IJ and femorals Qualifiers: Sepsis type: Escherichia coli Qualified Code(s): A41.51 - Sepsis due to Escherichia coli [E. coli] (4) Atrial fibrillation with RVR Current Visit: Yes Status: Acute Initially placed on Cardizem drip DC'd due to pts hypotension Now on amiodarone drip HR continues to be in the 120s Fever could be a contributing factor to tachycardia Continue to monitor and once BP stabilizes add Cardizem or beta blockers Heparin ggt Patient's heart rate increased to the 150s to 160s and a 150 mg amiodarone bolus was given in addition to the drip This did not significantly decrease patient's heart rate, therefore we will add a one-time dose of 5mg Lopressor Stat echo showed EF of 55% and indeterminate diastolic function but no other abnormalities (5) Acute kidney injury superimposed on CKD Current Visit: Yes Status: Acute Baseline Cre 1.1 Suspect relation to septic stone Borderline oliguria - 1225mls out yesterday and 275mls so far today Consultation to nephro placed - appreciate recommendations Continue to monitor and avoid nephrotoxic drugs CRRT started 12/03 - electrolytes, BUN and creatinine stabilizing (6) Ureteral calculi Current Visit: Yes Status: Acute As seen on CT abd and pelvis Urology following and placed a stent on 12/01 (7) UTI (urinary tract infection) Current Visit: Yes Status: Acute E. coli PCR positive with GNR growing in urine Pt on Cefepime day 5 UCx show E. coli sensitive to cefepime Qualifiers: Urinary tract infection type: acute pyelonephritis Qualified Code(s): N10 - Acute pyelonephritis (8) Diabetes mellitus Current Visit: Yes Status: Chronic On CRRT Insulin and glucose as per protocol Qualifiers: Diabetes mellitus type: type 2 Diabetes mellitus medical terminologist insulin use: with medical terminologist use Diabetes mellitus complication status: with skin complications Diabetes mellitus complication detail: with foot ulcer Qualified Code(s): E11.621 - Type 2 diabetes mellitus with foot ulcer; L97.509 - Non-pressure chronic ulcer of other part of unspecified foot with unspecified severity; 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 CXR shows worsening edema and we will try to remove fluid starting today. Pt failed CPAP trial due to tachycardia from likely related anxiety - she was given 5mg Lopressor which mildly improved her tachycardia from 170 to 120s. Pt has been getting 2mg Versed every 2 hours overnight and therefore we will start Klonopin scheduled to try to help control her anxiety on the vent. Objective PUL Vital signs: Last Vital Signs Temp 98.8 F 12/05/18 07:00 Pulse 118 12/05/18 07:00 Resp 16 12/05/18 07:00 BP 91/51 12/05/18 07:00 Pulse Ox 92 12/05/18 07:00 General appearance: no acute distress, asleep Eyes: nonicteric Effort: normal Auscultation: bilateral: diminished breath sounds, rales Cardiovascular: irregular rhythm, other (tachycardia) Gastrointestinal: soft, non-tender, other (distended) Integumentary: normal Extremities: edema (1+ edema), other (right BKA, left toe amputation x5. Area of clearly demarcated erythema on BLE) pupils equal and round Ventilator Settings Ventilator Settings: Ventilator Settings, Last 8 Hours Ventilator Tidal Volume 550 Setting Ventilator Tidal Volume 550 Setting Ventilator Tidal Volume 550 Setting Ventilator Tidal Volume 550 Setting Ventilator Tidal Volume 550 Setting Ventilator Tidal Volume 550 Setting Ventilator Tidal Volume 550 Setting Ventilator Tidal Volume 550 Setting Ventilator Tidal Volume 550 Setting Ventilator Tidal Volume 550 Setting Ventilator Tidal Volume 550 Setting Ventilator Tidal Volume 550 Setting Ventilator Tidal Volume 550 Setting Ventilator Respiratory Rate 16 Setting Ventilator Respiratory Rate 16 Setting Ventilator Respiratory Rate 16 Setting Ventilator Respiratory Rate 16 Setting Ventilator Respiratory Rate 16 Setting Ventilator Respiratory Rate 16 Setting Ventilator Respiratory Rate 16 Setting Ventilator Respiratory Rate 16 Setting Ventilator Respiratory Rate 16 Setting Ventilator Respiratory Rate 16 Setting Ventilator Respiratory Rate 16 Setting Ventilator Respiratory Rate 16 Setting Ventilator Respiratory Rate 16 Setting Actual Respiratory Rate 16 Actual Respiratory Rate 22 Actual Respiratory Rate 16 Actual Respiratory Rate 16 Actual Respiratory Rate 16 Actual Respiratory Rate 16 Actual Respiratory Rate 16 Actual Respiratory Rate 16 Actual Respiratory Rate 16 Actual Respiratory Rate 16 Actual Respiratory Rate 16 Actual Respiratory Rate 16 Positive End Expiratory 8 Pressure Positive End Expiratory 8 Pressure Positive End Expiratory 8 Pressure Positive End Expiratory 8 Pressure Positive End Expiratory 8 Pressure Positive End Expiratory 8 Pressure Positive End Expiratory 8 Pressure Positive End Expiratory 8 Pressure Positive End Expiratory 8 Pressure Positive End Expiratory 8 Pressure Positive End Expiratory 8 Pressure Positive End Expiratory 8 Pressure Positive End Expiratory 8 Pressure Peak Inspiratory Airway 37 Pressure Peak Inspiratory Airway 37 Pressure Peak Inspiratory Airway 35 Pressure Peak Inspiratory Airway 36 Pressure Peak Inspiratory Airway 35 Pressure Peak Inspiratory Airway 33 Pressure Peak Inspiratory Airway 33 Pressure Peak Inspiratory Airway 31 Pressure Peak Inspiratory Airway 33 Pressure Peak Inspiratory Airway 34 Pressure Peak Inspiratory Airway 31 Pressure Peak Inspiratory Airway 30 Pressure Results - Laboratory Findings CBC and BMP: 12/05/18 03:40 12/05/18 03:40 ABG ABG pH 7.38 pH Units (7.32-7.45) 12/05/18 04:22 ABG pCO2 48 mmHg (35-45) H 12/05/18 04:22 ABG pO2 56 mmHg (85-104) L 12/05/18 04:22 ABG O2 Saturation 88 % (95-98) L 12/05/18 04:22 PT/INR, D-dimer PT 13.7 Seconds (9.4-12.1) H 12/03/18 11:55 Abnormal lab findings: Abnormal lab results WBC 11.7 K/mcL (4.3-11.1) H 12/04/18 04:27 Hct 45.3 % (35.3-44.9) H 12/01/18 03:19 MCHC 31.0 g/dL (31.6-35.5) L 12/03/18 04:00 RDW 16.5 % (11.5-14.5) H 12/05/18 03:40 Neutrophils # 9.7 K/mcL (1.6-8.9) H 12/04/18 04:27 Nucleated RBCs/100 WBC 0.5 /100 WBC (0) H 12/05/18 03:40 PT 13.7 Seconds (9.4-12.1) H 12/03/18 11:55 APTT 36.4 Seconds (26.0-36.0) H 12/01/18 03:19 Heparin Anti-Xa, Unfract 0.24 IU/mL (0.30-0.70) L 12/04/18 04:00 ABG pH 7.16 pH Units (7.32-7.45) L* 12/03/18 06:23 ABG pCO2 48 mmHg (35-45) H 12/05/18 04:22 ABG pO2 56 mmHg (85-104) L 12/05/18 04:22 ABG HCO3 28 mEq/L (21-27) H 12/05/18 04:22 ABG Total CO2 30 mEq/L (20-26) H 12/05/18 04:22 ABG O2 Saturation 88 % (95-98) L 12/05/18 04:22 ABG Base Excess -9 mEq/L (-2 to 3) L 12/03/18 06:23 Sodium 134 mEq/L (136-145) L 12/05/18 03:40 Chloride 111 mEq/L (98-107) H 12/02/18 04:21 Carbon Dioxide 19 mEq/L (23-29) L 12/03/18 04:00 BUN 28 mg/dL (8-23) H 12/04/18 04:27 Creatinine 1.26 mg/dL (0.60-1.20) H 12/05/18 03:40 Est GFR ( Amer) 52 (> 60) L 12/05/18 03:40 Est GFR (Non-Af Amer) 43 (> 60) L 12/05/18 03:40 Glucose 174 mg/dL (70-105) H 12/05/18 03:40 POC Glucose 195 mg/dL (70-99) H 12/04/18 23:40 Hemoglobin A1c 8.6 % (-5.6) H 12/01/18 03:19 Calculated Osmolality 305 (280-300) H 12/02/18 12:01 Calcium 7.5 mg/dL (8.6-10.3) L 12/05/18 03:40 Phosphorus 2.0 mg/dL (2.7-4.5) L 12/05/18 03:40 Magnesium 1.4 mg/dL (1.6-2.6) L 12/02/18 04:21 Serum Total Protein 6.1 g/dL (6.4-8.9) L 12/01/18 03:19 Albumin 3.3 g/dL (3.5-5.7) L 12/01/18 03:19 Prealbumin 3.4 mg/dL (17.0-34.0) L 12/03/18 04:00 HDL Cholesterol 22 mg/dL (40-59) L 12/01/18 03:19 Urine Clarity Cloudy (Clear) A 12/01/18 04:23 Urine Blood Moderate (Negative) H 12/01/18 04:23 Urine Nitrite Positive (Negative) A 12/01/18 04:23 Ur Leukocyte Esterase Large (Negative) H 12/01/18 04:23 Urine Microscopic WBC 3-5 per hpf (0-3) H 12/01/18 04:23 Ur Squamous Epith Cells Many per lpf (None-Few) H 12/01/18 04:23 Urine Bacteria Moderate per hpf (None-Few) H 12/01/18 04:23 E. coli (PCR) DETECTED (Not Detect) A 12/01/18 03:50 - Microbiology Findings Microbiology Findings: Microbiology, Last 48 Hours 12/01/18 08:11 Anaerobic Culture - Preliminary Left Kidney At this time, no anaerobic growth is present. The culture will be finalized after 5 days of incubation. 12/01/18 08:11 Surgical Biopsy Culture - Preliminary Left Kidney Gram Positive Cocci Gram Negative Daniel Gram Negative Daniel#2 12/01/18 03:50 Blood Culture - Final Peripheral Venipuncture Escherichia coli 12/01/18 03:59 Blood Culture - Final Peripheral Venipuncture Escherichia coli 12/01/18 04:23 Urine Culture - Final Urine,Clean Catch Escherichia coli - Clinical Findings Intake & Output: Intake & Output 12/04/18 12/04/18 12/05/18 15:59 23:59 07:59 Intake Total 819 / 4281.1 745 / 4281.1 801 / 801 Output Total 1193 / 4059 789 / 4059 883 / 883 Balance -374 / 222.1 -44 / 222.1 -82 / -82 Weight 127.8 kg 127.8 kg 127.8 kg
[2018-12-05] MEDS: Chlorhexidine Rinse 15 ML MOUTHWASH MM SCH ×2 (07:55→20:24)
[2018-12-05] MEDS: Pantoprazole 40 MG VIAL IVP SCH (07:55)
[2018-12-05] MEDS: Cefepime HCl 1,000 MG in Water for inj. (sterile) 10 ML IVP SCH ×3 (07:55→23:16)
[2018-12-05] MEDS: *HR* Amiodarone 200 MG TABLET PO SCH (07:55)
[2018-12-05] MEDS ORDERED: cloNIDine HCl 0.1 MG TABLET PO SCH (09:00)
[2018-12-05] MEDS: clonazePAM 0.5 MG TABLET PO SCH ×3 (10:01→20:24)
[2018-12-05] MEDS: Budesonide/Formoterol 160/4.5 1 PUFF INH IH SCH ×2 (10:17→21:41)
--- NOTE | 2018-12-05 12:16 | Nephrology Progress Note ---
Date of Encounter: 12/05/18 Time of Encounter: 12:00 - Assessment and Plan (1) Acute and chronic respiratory failure with hypoxia Current Visit: Yes Status: Acute Vent management per primary team (2) Acute kidney injury superimposed on CKD Current Visit: Yes Status: Acute Continue CVVHDF as prescribed but start UF at 50cc/hr with goal of 100cc/hr as tolerated Limit obligate fluids if possible The goal is to have net negative fluid balance Continue to avoid nephrotoxins if possible (3) Sepsis Current Visit: Yes Status: Deleted Antibiotics as per primary with renal dosing. Qualifiers: Sepsis type: sepsis due to unspecified organism Qualified Code(s): A41.9 - Sepsis, unspecified organism; R65.20 - Severe sepsis without septic shock (4) Hydronephrosis Current Visit: Yes Status: Acute Qualifiers: Hydronephrosis type: with ureteral calculous obstruction Qualified Code(s): N13.2 - Hydronephrosis with renal and ureteral calculous obstruction (5) Metabolic acidosis Current Visit: Yes Status: Acute Resolved. Bicarbonate drip stopped yesterday. Subjective Principal diagnosis: RANCHO Interval history: Pt seen and examined remains intubated on CRRT, doing well per nurse Objective - Vital Signs Vital signs: Vital Signs Temp Pulse Resp BP Pulse Ox 12/05/18 12:00 142 14 124/60 89 12/05/18 11:49 14 112/52 91 12/05/18 11:47 97.6 F 12/05/18 11:00 125 14 105/53 91 12/05/18 10:20 14 115/56 91 12/05/18 10:00 134 14 129/63 92 12/05/18 09:00 136 14 114/53 92 12/05/18 08:00 127 16 93/46 91 12/05/18 07:28 16 116/56 93 12/05/18 07:24 98.6 F 12/05/18 07:00 98.8 F 118 16 91/51 92 12/05/18 06:00 98.5 F 147 22 188/115 86 12/05/18 05:37 16 101/54 92 12/05/18 05:00 98.3 F 126 16 128/62 90 12/05/18 04:00 98.0 F 140 16 113/55 91 12/05/18 03:26 16 116/59 92 12/05/18 03:00 97.7 F 129 16 125/67 91 12/05/18 02:00 97.8 F 119 16 114/58 93 12/05/18 01:25 16 90/51 91 12/05/18 01:00 97.6 F 128 16 143/70 91 12/05/18 00:00 97.1 F L 127 16 107/55 91 12/04/18 23:27 16 93 12/04/18 23:00 96.8 F L 125 16 71/41 90 12/04/18 22:00 95.6 F L 121 16 112/57 93 12/04/18 21:42 16 103/55 92 12/04/18 21:00 95.4 F L 114 16 86/49 94 12/04/18 20:00 97.5 F L 89 16 98/53 92 12/04/18 19:34 16 94 12/04/18 19:00 104 16 113/58 94 12/04/18 18:00 92 16 97/52 93 12/04/18 17:00 97.9 F 92 16 102/53 93 12/04/18 16:00 97 16 105/52 94 12/04/18 15:20 16 94 12/04/18 15:00 97.9 F 100 16 103/49 95 12/04/18 14:00 92 103/50 12/04/18 13:00 104 16 107/50 96 Intake and Output 12/04/18 12/05/18 12/05/18 23:59 07:59 15:59 Intake Total 745 / 4281.1 850 / 1053 203 / 1053 Output Total 789 / 4059 883 / 1385 502 / 1385 Balance -44 / 222.1 -33 / -332 -299 / -332 Intake: IV Fluids 545 / 3784.1 626 / 776 150 / 776 PrismaSATE BGK 4/2.5 5,000 ML @ 0 / 0 0 / 0 1000 mls/hr CRRT CONT MEGA Rx#: [id number] FentaNYL (PF) 1,000 MCG In 0.9 83 / 255.2 132 / 162 30 / 162 % Sodium Chloride 80 ML @ 50 MCG/HR 5 mls/hr IVC CONT MEGA Rx #:[id number] Heparin 25,000 UNIT/250 ML D5W 130 / 476 145 / 145 25,000 unit In 250 ml @ 14 UNIT /KG/HR 15.414 mls/hr IVC . [id number] MEGA Rx#:[id number] Levophed 4 MG In Dextrose 5% 162 / 433.4 142 / 142 0 / 142 250 ML @ 8 MCG/MIN 30.48 mls/hr IVC CONT MEGA Rx#:[id number] Diprivan 1,000 mg In 100 ml @ 160 / 323 197 / 317 120 / 317 20 MCG/KG/MIN 15.336 mls/hr IVC .[id number] [facility] Rx#:[id number] Maxipime 1,000 MG In Water for 10 inj. (sterile) 10 ML @ 300 mls/ hr IVP Q8HR MEGA Rx#:[id number] Tube Feeding 200 / 467 224 / 277 53 / 277 Output: Catheter 184 / 774 117 / 180 63 / 180 Fluid Removed by Prismaflex 605 / 3285 766 / 1205 439 / 1205 Other: Weight 127.8 kg 127.8 kg 127.8 kg Blood Glucose* 178 134 183 Patient Weight 12/05/18 23:59 Weight 127.8 kg - General Appearance General appearance: Present: sedated on ventilator, intubated EENT: Present: ATNC, mucous membranes moist Neck: Present: no JVD, supple Cardiology: Present: normal S1, normal S2 Dialysis Vascular Access: Venous Catheter (temp line) Gastrointestinal: Present: no tenderness, no guarding Integumentary: Present: warm and dry Additional Comments: sedated Musculoskeletal: Present: no deformities Additional Comments: sedated - Lab 12/22/18 05:00 12/22/18 05:00 Most recent lab results 12/05/18 12/05/18 03:40 04:22 ABG pH 7.38 ABG pCO2 48 H ABG pO2 56 L ABG HCO3 28 H ABG O2 Saturation 88 L Calcium 7.5 L Phosphorus 2.0 L Magnesium 2.3 Consult Discharge Plan - Plan Referrals: Kelly Cardozo, CHRISTY [Primary Care Provider] -
[2018-12-05] MEDS: Norepinephrine 4 MG in D5% in Water 250 ML IVC SCH (23:42)
[2018-12-06 03:29] LABS: Hematocrit 37.1 % (35.3-44.9); Hemoglobin 11.6 g/dL (11.5-15.4); Lymphocytes # 1.1 K/mcL (0.6-4.6); Mean Corpuscular HGB Conc 31.3 g/dL (31.6-35.5); Mean Corpuscular Hemoglobin 28.6 pg (28.0-33.3); Mean Corpuscular Volume 91.4 fL (83.0-100.0); Mean Platelet Volume 12.1 fL (9.4-12.4); Nucleated Red Blood Cells 0.5 /100 WBC (0); Platelet Count 130 K/mcL (140-400); Red Blood Count 4.06 M/mcL (3.82-4.97); Red Cell Distribution Width 16.9 % (11.5-14.5); White Blood Count 11.3 K/mcL (4.3-11.1)
[2018-12-06 03:49] LABS: Calcium 7.7 mg/dL (8.6-10.3); Magnesium 2.4 mg/dL (1.6-2.6); Phosphorous 2.6 mg/dL (2.7-4.5); Potassium 3.9 mEq/L (3.5-5.1)
[2018-12-06] MEDS: Levalbuterol Neb 1.25 MG/3 ML IH SCH ×4 (03:53→21:46)
[2018-12-06 03:54] LABS: Anisocytosis 1+ (Not Present); Monocytes # 0.7 K/mcL (0.0-1.3); Neutrophils # 9.5 K/mcL (1.6-8.9); Platelet Estimate Slight Decrease (Normal)
[2018-12-06] MEDS: Insulin LISPRO 300 UNITS/3 ML VIAL SQ SCH ×6 (04:04→23:24)
[2018-12-06] MEDS: Artificial Tears SOLN 15 ML BOTTLE BOTH EYES SCH ×6 (04:05→23:24)
[2018-12-06] MEDS: FentaNYL (PF) 1,000 MCG in 0.9 % Sodium Chloride 80 ML IVC SCH ×3 (04:52→19:59)
[2018-12-06 05:01] LABS: ABG Base Excess -1 mEq/L (-2 to 3); ABG HCO3 26 mEq/L (21-27); ABG Oxygen Saturation 86 % (95-98); ABG PCO2 49 mmHg (35-45); ABG PH 7.33 pH Units (7.32-7.45); ABG PO2 56 mmHg (85-104); ABG TCO2 28 mEq/L (20-26); Blood Gas Modality ASSIST CONTROL; Blood Gas PEEP 5 cm H2O; Blood Gas VT 550 cc
[2018-12-06] MEDS: PrismaSATE BGK 4/2.5 5,000 ML CRRT SCH ×8 (05:23→20:50)
[2018-12-06] MEDS: Cefepime HCl 1,000 MG in Water for inj. (sterile) 10 ML IVP SCH ×3 (07:32→23:23)
[2018-12-06] MEDS: Pantoprazole 40 MG VIAL IVP SCH (07:32)
[2018-12-06] MEDS: Chlorhexidine Rinse 15 ML MOUTHWASH MM SCH ×2 (07:33→20:25)
[2018-12-06] MEDS: clonazePAM 0.5 MG TABLET PO SCH ×3 (07:33→20:25)
[2018-12-06] MEDS: *HR* Amiodarone 200 MG TABLET PO SCH (07:33)
--- NOTE | 2018-12-06 07:39 | Pulmonology Progress Note ---
<AddieTracemicaela M - Last Filed: 12/06/18 08:39> Date of Encounter: 12/06/18 Objective PUL Vital signs: Last Vital Signs Temp 98.7 F 12/06/18 08:00 Pulse 138 12/06/18 08:00 Resp 14 12/06/18 08:00 BP 90/48 12/06/18 08:00 Pulse Ox 92 12/06/18 08:00 Ventilator Settings Ventilator Settings: Ventilator Settings, Last 8 Hours Ventilator Tidal Volume 550 Setting Ventilator Tidal Volume 550 Setting Ventilator Tidal Volume 550 Setting Ventilator Tidal Volume 550 Setting Ventilator Tidal Volume 550 Setting Ventilator Tidal Volume 550 Setting Ventilator Tidal Volume 550 Setting Ventilator Tidal Volume 550 Setting Ventilator Tidal Volume 550 Setting Ventilator Tidal Volume 550 Setting Ventilator Tidal Volume 550 Setting Ventilator Tidal Volume 550 Setting Ventilator Tidal Volume 550 Setting Ventilator Respiratory Rate 14 Setting Ventilator Respiratory Rate 14 Setting Ventilator Respiratory Rate 14 Setting Ventilator Respiratory Rate 14 Setting Ventilator Respiratory Rate 14 Setting Ventilator Respiratory Rate 14 Setting Ventilator Respiratory Rate 14 Setting Ventilator Respiratory Rate 14 Setting Ventilator Respiratory Rate 14 Setting Ventilator Respiratory Rate 14 Setting Ventilator Respiratory Rate 14 Setting Ventilator Respiratory Rate 14 Setting Ventilator Respiratory Rate 14 Setting Actual Respiratory Rate 14 Actual Respiratory Rate 15 Actual Respiratory Rate 14 Actual Respiratory Rate 14 Actual Respiratory Rate 14 Actual Respiratory Rate 14 Actual Respiratory Rate 14 Actual Respiratory Rate 14 Actual Respiratory Rate 14 Actual Respiratory Rate 14 Actual Respiratory Rate 14 Positive End Expiratory 5 Pressure Positive End Expiratory 5 Pressure Positive End Expiratory 5 Pressure Positive End Expiratory 5 Pressure Positive End Expiratory 5 Pressure Positive End Expiratory 5 Pressure Positive End Expiratory 5 Pressure Positive End Expiratory 5 Pressure Positive End Expiratory 5 Pressure Positive End Expiratory 5 Pressure Positive End Expiratory 5 Pressure Positive End Expiratory 5 Pressure Positive End Expiratory 5 Pressure Peak Inspiratory Airway 18 Pressure Peak Inspiratory Airway 27 Pressure Peak Inspiratory Airway 18 Pressure Peak Inspiratory Airway 30 Pressure Peak Inspiratory Airway 30 Pressure Peak Inspiratory Airway 29 Pressure Peak Inspiratory Airway 28 Pressure Peak Inspiratory Airway 28 Pressure Peak Inspiratory Airway 27 Pressure Peak Inspiratory Airway 28 Pressure Peak Inspiratory Airway 28 Pressure Peak Inspiratory Airway 27 Pressure Results - Laboratory Findings CBC and BMP: 12/06/18 03:20 12/06/18 03:20 ABG ABG pH 7.33 pH Units (7.32-7.45) 12/06/18 04:57 ABG pCO2 49 mmHg (35-45) H 12/06/18 04:57 ABG pO2 56 mmHg (85-104) L 12/06/18 04:57 ABG O2 Saturation 86 % (95-98) L 12/06/18 04:57 PT/INR, D-dimer PT 13.7 Seconds (9.4-12.1) H 12/03/18 11:55 Abnormal lab findings: Abnormal lab results WBC 11.3 K/mcL (4.3-11.1) H 12/06/18 03:20 Hct 45.3 % (35.3-44.9) H 12/01/18 03:19 MCHC 31.3 g/dL (31.6-35.5) L 12/06/18 03:20 RDW 16.9 % (11.5-14.5) H 12/06/18 03:20 Plt Count 130 K/mcL (140-400) L 12/06/18 03:20 Neutrophils # 9.5 K/mcL (1.6-8.9) H 12/06/18 03:20 Nucleated RBCs/100 WBC 0.5 /100 WBC (0) H 12/06/18 03:20 Platelet Estimate Slight Decrease (Normal) L 12/06/18 03:20 Anisocytosis 1+ (Not Present) A 12/06/18 03:20 PT 13.7 Seconds (9.4-12.1) H 12/03/18 11:55 APTT 36.4 Seconds (26.0-36.0) H 12/01/18 03:19 Heparin Anti-Xa, Unfract 0.24 IU/mL (0.30-0.70) L 12/04/18 04:00 ABG pH 7.16 pH Units (7.32-7.45) L* 12/03/18 06:23 ABG pCO2 49 mmHg (35-45) H 12/06/18 04:57 ABG pO2 56 mmHg (85-104) L 12/06/18 04:57 ABG HCO3 28 mEq/L (21-27) H 12/05/18 04:22 ABG Total CO2 28 mEq/L (20-26) H 12/06/18 04:57 ABG O2 Saturation 86 % (95-98) L 12/06/18 04:57 ABG Base Excess -9 mEq/L (-2 to 3) L 12/03/18 06:23 Sodium 135 mEq/L (136-145) L 12/06/18 03:20 Chloride 111 mEq/L (98-107) H 12/02/18 04:21 Carbon Dioxide 19 mEq/L (23-29) L 12/03/18 04:00 BUN 28 mg/dL (8-23) H 12/04/18 04:27 Creatinine 1.26 mg/dL (0.60-1.20) H 12/05/18 03:40 Est GFR ( Amer) 56 (> 60) L 12/06/18 03:20 Est GFR (Non-Af Amer) 46 (> 60) L 12/06/18 03:20 Glucose 163 mg/dL (70-105) H 12/06/18 03:20 POC Glucose 143 mg/dL (70-99) H 12/05/18 23:07 Hemoglobin A1c 8.6 % (-5.6) H 12/01/18 03:19 Calculated Osmolality 305 (280-300) H 12/02/18 12:01 Calcium 7.7 mg/dL (8.6-10.3) L 12/06/18 03:20 Phosphorus 2.6 mg/dL (2.7-4.5) L 12/06/18 03:20 Magnesium 1.4 mg/dL (1.6-2.6) L 12/02/18 04:21 Serum Total Protein 6.1 g/dL (6.4-8.9) L 12/01/18 03:19 Albumin 3.3 g/dL (3.5-5.7) L 12/01/18 03:19 Prealbumin 3.4 mg/dL (17.0-34.0) L 12/03/18 04:00 HDL Cholesterol 22 mg/dL (40-59) L 12/01/18 03:19 Urine Clarity Cloudy (Clear) A 12/01/18 04:23 Urine Blood Moderate (Negative) H 12/01/18 04:23 Urine Nitrite Positive (Negative) A 12/01/18 04:23 Ur Leukocyte Esterase Large (Negative) H 12/01/18 04:23 Urine Microscopic WBC 3-5 per hpf (0-3) H 12/01/18 04:23 Ur Squamous Epith Cells Many per lpf (None-Few) H 12/01/18 04:23 Urine Bacteria Moderate per hpf (None-Few) H 12/01/18 04:23 E. coli (PCR) DETECTED (Not Detect) A 12/01/18 03:50 - Microbiology Findings Microbiology Findings: Microbiology, Last 48 Hours 12/01/18 08:11 Surgical Biopsy Culture - Preliminary Left Kidney Gram Positive Cocci Proteus mirabilis Escherichia coli 12/01/18 08:11 Anaerobic Culture - Preliminary Left Kidney At this time, no anaerobic growth is present. The culture will be finalized after 5 days of incubation. - Clinical Findings Intake & Output: Intake & Output 12/05/18 12/06/18 12/06/18 23:59 07:59 15:59 Intake Total 1123 / 2388 1725.3 / 1823.6 98.3 / 1823.6 Output Total 1866 / 3970 2327 / 2557 230 / 2557 Balance -743 / -1582 -601.7 / -733.4 -131.7 / -733.4 Weight 127.8 kg 128 kg 128 kg Consult Discharge Plan - Plan Referrals: Kelly Cardozo RN [Primary Care Provider] - - Attending Attestation I examined this patient and my medical decision-making was reviewed with the Resident Physician. I agree with the documented findings, disposition and treatment plan as described except to the extent set forth below. Patient seen and examined. Labs, radiology, chart personally reviewed. 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 Pulmonary: Acceptable oxygenation and ventilation. Patient failed spontaneous breathing trial and main reason now is her A. fib RVR in addition to the agitation. We will attempt to pull more fluid off her and hopefully that will help oxygenation. I have increased her FiO2 on the vent and if still hypoxic and then will need to increase PEEP. Early next week might have discussion with family regarding tracheostomy if continue to failing spontaneous breathing trial. Cardiovascular: Patient is off Levophed that this time which is encouraging sign, however she is on amiodarone for A. fib RVR and we will attempt some Cardizem hopefully that will slow down her heart rate. If she becomes hypertensive then will try phenylephrine this time which hopefully will help her heart rate. GI: Nutrition per dietary and GI prophylaxis per routine Heme: DVT prophylaxis per routine ID: Continue antibiotics and plan to de-escalation Renal; urine out put and renal function reviewed. Patient is on renal replacement therapy and will continue fluid removal. Endorcine: blood glucose is monitored Lines: all lines checked and no evidence of infections Skin: skin care to prevent pressure ulcers per nursing routine care Dispo: ICU Code: Full. Prognosis. Guarded. I spent 35 min of Critical Care time with this patient. It involved decision making of high complexity to assess, manipulate, and support vital organ system failure and/or to prevent further life threatening deterioration of the patient's condition. The time involved in the performance of separately reportable procedures was not counted toward critical care time. <Rufina Heredia R - Last Filed: 12/06/18 09:34> Date of Encounter: 12/06/18 Time of Encounter: 07:39 Assessment and Plan (1) Acute and chronic respiratory failure with hypoxia Current Visit: Yes Status: Acute Due to hemodynamic instability with septic stone Currently intubated and sedated with Fentanyl and Propofol Adding Klonopin for anxiety control Continue scheduled bronchodilators and Symbicort - pt does have hx of COPD and tobacco abuse Continue to monitor closely in the ICU GI prophylaxis with daily Protonix IV (2) Metabolic acidosis Current Visit: Yes Status: Acute ABG showed pH of 7.16 this am with pCO2 56, HCO3 20 Lactic acid normal at 1.5x2 Anion gap 10 Beta-hydroxybutyrate mildly elevated at 0.39 Likely secondary to worsening renal function Nephro consulted Bicarb drip running CRRT started 12/03, pH now 7.38 (3) Sepsis Current Visit: Yes Status: Acute BCx x2 positive for GNR PCR shows E. coli Likely secondary to septic stone with E. coli UTI Dr. Salguero with stent placement 12/01 Pt on IV Cefepime day 6 UCx show E. coli Wound cultures show E. coli and Proteus with a third species currently growing - both sensitive to cefepime WBC decreased today to 10.1 No longer febrile Pt hypotensive with Levophed running - switching to alysha-synephrine on 12/06 Dr. Alejandro placed subclavian central line due to poor access of IJ and femorals Qualifiers: Sepsis type: Escherichia coli Qualified Code(s): A41.51 - Sepsis due to Escherichia coli [E. coli] (4) Atrial fibrillation with RVR Current Visit: Yes Status: Acute Initially placed on Cardizem drip DC'd due to pts hypotension Now on amiodarone drip HR continues to be in the 120s Fever could be a contributing factor to tachycardia Continue to monitor and once BP stabilizes add Cardizem or beta blockers Heparin ggt Patient's heart rate increased to the 150s to 160s and a 150 mg amiodarone bolus was given in addition to the drip This did not significantly decrease patient's heart rate, therefore we will add a one-time dose of 5mg Lopressor Stat echo showed EF of 55% and indeterminate diastolic function but no other abnormalities Adding Cardizem drip to amiodarone on 12/06 due to continued afib RVR in the 150s (5) Acute kidney injury superimposed on CKD Current Visit: Yes Status: Acute Baseline Cre 1.1 Suspect relation to septic stone Borderline oliguria - 1225mls out yesterday and 275mls so far today Consultation to nephro placed - appreciate recommendations Continue to monitor and avoid nephrotoxic drugs CRRT started 12/03 - electrolytes, BUN and creatinine stabilizing Fluid removal kelvin on 12/05 (6) Ureteral calculi Current Visit: Yes Status: Acute As seen on CT abd and pelvis Urology following and placed a stent on 12/01 (7) UTI (urinary tract infection) Current Visit: Yes Status: Acute E. coli PCR positive with GNR growing in urine Pt on Cefepime day 5 UCx show E. 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 CPAP trial failed today due to high heart rate and hypoxia. Will switch her from levophed to alysha-synephrine due to her continued tachycardia. Will also start her on a cardizem drip in addition to the amiodarone. Seroquel will be added tonight for additional coverage of her anxiety. Objective PUL Vital signs: Last Vital Signs Temp 98.7 F 12/06/18 04:00 Pulse 159 12/06/18 07:00 Resp 14 12/06/18 07:19 BP 111/56 12/06/18 07:19 Pulse Ox 91 12/06/18 07:19 General appearance: asleep Eyes: nonicteric Effort: normal Auscultation: bilateral: diminished breath sounds, rhonchi Cardiovascular: irregular rhythm, other (tachycardic) Gastrointestinal: soft, non-tender Integumentary: normal Extremities: edema (1+ bilaterally), other (RLE BKA, left toe amputation x5) pupils equal and round Ventilator Settings Ventilator Settings: Ventilator Settings, Last 8 Hours Ventilator Tidal Volume 550 Setting Ventilator Tidal Volume 550 Setting Ventilator Tidal Volume 550 Setting Ventilator Tidal Volume 550 Setting Ventilator Tidal Volume 550 Setting Ventilator Tidal Volume 550 Setting Ventilator Tidal Volume 550 Setting Ventilator Tidal Volume 550 Setting Ventilator Tidal Volume 550 Setting Ventilator Tidal Volume 550 Setting Ventilator Tidal Volume 550 Setting Ventilator Tidal Volume 550 Setting Ventilator Tidal Volume 550 Setting Ventilator Respiratory Rate 14 Setting Ventilator Respiratory Rate 14 Setting Ventilator Respiratory Rate 14 Setting Ventilator Respiratory Rate 14 Setting Ventilator Respiratory Rate 14 Setting Ventilator Respiratory Rate 14 Setting Ventilator Respiratory Rate 14 Setting Ventilator Respiratory Rate 14 Setting Ventilator Respiratory Rate 14 Setting Ventilator Respiratory Rate 14 Setting Ventilator Respiratory Rate 14 Setting Ventilator Respiratory Rate 14 Setting Ventilator Respiratory Rate 14 Setting Actual Respiratory Rate 14 Actual Respiratory Rate 15 Actual Respiratory Rate 14 Actual Respiratory Rate 14 Actual Respiratory Rate 14 Actual Respiratory Rate 14 Actual Respiratory Rate 14 Actual Respiratory Rate 14 Actual Respiratory Rate 14 Actual Respiratory Rate 14 Actual Respiratory Rate 14 Actual Respiratory Rate 14 Positive End Expiratory 5 Pressure Positive End Expiratory 5 Pressure Positive End Expiratory 5 Pressure Positive End Expiratory 5 Pressure Positive End Expiratory 5 Pressure Positive End Expiratory 5 Pressure Positive End Expiratory 5 Pressure Positive End Expiratory 5 Pressure Positive End Expiratory 5 Pressure Positive End Expiratory 5 Pressure Positive End Expiratory 5 Pressure Positive End Expiratory 5 Pressure Positive End Expiratory 5 Pressure Peak Inspiratory Airway 27 Pressure Peak Inspiratory Airway 18 Pressure Peak Inspiratory Airway 30 Pressure Peak Inspiratory Airway 30 Pressure Peak Inspiratory Airway 29 Pressure Peak Inspiratory Airway 28 Pressure Peak Inspiratory Airway 28 Pressure Peak Inspiratory Airway 27 Pressure Peak Inspiratory Airway 28 Pressure Peak Inspiratory Airway 28 Pressure Peak Inspiratory Airway 27 Pressure Peak Inspiratory Airway 32 Pressure Results - Laboratory Findings CBC and BMP: 12/06/18 03:20 12/06/18 03:20 ABG ABG pH 7.33 pH Units (7.32-7.45) 12/06/18 04:57 ABG pCO2 49 mmHg (35-45) H 12/06/18 04:57 ABG pO2 56 mmHg (85-104) L 12/06/18 04:57 ABG O2 Saturation 86 % (95-98) L 12/06/18 04:57 PT/INR, D-dimer PT 13.7 Seconds (9.4-12.1) H 12/03/18 11:55 Abnormal lab findings: Abnormal lab results WBC 11.3 K/mcL (4.3-11.1) H 12/06/18 03:20 Hct 45.3 % (35.3-44.9) H 12/01/18 03:19 MCHC 31.3 g/dL (31.6-35.5) L 12/06/18 03:20 RDW 16.9 % (11.5-14.5) H 12/06/18 03:20 Plt Count 130 K/mcL (140-400) L 12/06/18 03:20 Neutrophils # 9.5 K/mcL (1.6-8.9) H 12/06/18 03:20 Nucleated RBCs/100 WBC 0.5 /100 WBC (0) H 12/06/18 03:20 Platelet Estimate Slight Decrease (Normal) L 12/06/18 03:20 Anisocytosis 1+ (Not Present) A 12/06/18 03:20 PT 13.7 Seconds (9.4-12.1) H 12/03/18 11:55 APTT 36.4 Seconds (26.0-36.0) H 12/01/18 03:19 Heparin Anti-Xa, Unfract 0.24 IU/mL (0.30-0.70) L 12/04/18 04:00 ABG pH 7.16 pH Units (7.32-7.45) L* 12/03/18 06:23 ABG pCO2 49 mmHg (35-45) H 12/06/18 04:57 ABG pO2 56 mmHg (85-104) L 12/06/18 04:57 ABG HCO3 28 mEq/L (21-27) H 12/05/18 04:22 ABG Total CO2 28 mEq/L (20-26) H 12/06/18 04:57 ABG O2 Saturation 86 % (95-98) L 12/06/18 04:57 ABG Base Excess -9 mEq/L (-2 to 3) L 12/03/18 06:23 Sodium 135 mEq/L (136-145) L 12/06/18 03:20 Chloride 111 mEq/L (98-107) H 12/02/18 04:21 Carbon Dioxide 19 mEq/L (23-29) L 12/03/18 04:00 BUN 28 mg/dL (8-23) H 12/04/18 04:27 Creatinine 1.26 mg/dL (0.60-1.20) H 12/05/18 03:40 Est GFR ( Amer) 56 (> 60) L 12/06/18 03:20 Est GFR (Non-Af Amer) 46 (> 60) L 12/06/18 03:20 Glucose 163 mg/dL (70-105) H 12/06/18 03:20 POC Glucose 143 mg/dL (70-99) H 12/05/18 23:07 Hemoglobin A1c 8.6 % (-5.6) H 12/01/18 03:19 Calculated Osmolality 305 (280-300) H 12/02/18 12:01 Calcium 7.7 mg/dL (8.6-10.3) L 12/06/18 03:20 Phosphorus 2.6 mg/dL (2.7-4.5) L 12/06/18 03:20 Magnesium 1.4 mg/dL (1.6-2.6) L 12/02/18 04:21 Serum Total Protein 6.1 g/dL (6.4-8.9) L 12/01/18 03:19 Albumin 3.3 g/dL (3.5-5.7) L 12/01/18 03:19 Prealbumin 3.4 mg/dL (17.0-34.0) L 12/03/18 04:00 HDL Cholesterol 22 mg/dL (40-59) L 12/01/18 03:19 Urine Clarity Cloudy (Clear) A 12/01/18 04:23 Urine Blood Moderate (Negative) H 12/01/18 04:23 Urine Nitrite Positive (Negative) A 12/01/18 04:23 Ur Leukocyte Esterase Large (Negative) H 12/01/18 04:23 Urine Microscopic WBC 3-5 per hpf (0-3) H 12/01/18 04:23 Ur Squamous Epith Cells Many per lpf (None-Few) H 12/01/18 04:23 Urine Bacteria Moderate per hpf (None-Few) H 12/01/18 04:23 E. coli (PCR) DETECTED (Not Detect) A 12/01/18 03:50 - Microbiology Findings Microbiology Findings: Microbiology, Last 48 Hours 12/01/18 08:11 Surgical Biopsy Culture - Preliminary Left Kidney Gram Positive Cocci Proteus mirabilis Escherichia coli 12/01/18 08:11 Anaerobic Culture - Preliminary Left Kidney At this time, no anaerobic growth is present. The culture will be finalized after 5 days of incubation. - Clinical Findings Intake & Output: Intake & Output 12/05/18 12/05/18 12/06/18 15:59 23:59 07:59 Intake Total 293 / 2388 1123 / 2388 1715.3 / 1715.3 Output Total 863 / 3970 1866 / 3970 2327 / 2327 Balance -570 / -1582 -743 / -1582 -611.7 / -611.7 Weight 127.8 kg 127.8 kg 128 kg
[2018-12-06] MEDS: Heparin 25,000 UNIT/250 ML D5W 25,000 UNIT/250 ML IV.SOLN IVC SCH ×2 (08:21→22:20)
[2018-12-06] MEDS: Budesonide/Formoterol 160/4.5 1 PUFF INH IH SCH ×2 (09:05→21:46)
[2018-12-06] MEDS: Phenylephrine 10 MG in D5% in Water 250 ML IVC SCH ×2 (10:20→13:18)
--- NOTE | 2018-12-06 12:05 | Nephrology Progress Note ---
Date of Encounter: 12/06/18 Time of Encounter: 12:00 - Assessment and Plan (1) Acute and chronic respiratory failure with hypoxia Current Visit: Yes Status: Acute Vent management per primary team (2) Acute kidney injury superimposed on CKD Current Visit: Yes Status: Acute Continue CVVHDF as prescribed with negative fluid balance Goal of 100cc to 200cc/hr fluid removal as tolerated UOP noted at 322cc in the past 24hrs, oliguric Continue to avoid nephrotoxins if possible (3) Sepsis Current Visit: Yes Status: Deleted Antibiotics as per primary with renal dosing. Qualifiers: Sepsis type: sepsis due to unspecified organism Qualified Code(s): A41.9 - Sepsis, unspecified organism; R65.20 - Severe sepsis without septic shock (4) Hydronephrosis Current Visit: Yes Status: Acute per urology, previously seen Qualifiers: Hydronephrosis type: with ureteral calculous obstruction Qualified Code(s): N13.2 - Hydronephrosis with renal and ureteral calculous obstruction (5) Metabolic acidosis Current Visit: Yes Status: Acute Resolved. Bicarbonate drip stopped today. Subjective Principal diagnosis: RANCHO Interval history: Pt seen and examined remains intubated on CRRT, doing well per nurse with no overnight issues Objective - Vital Signs Vital signs: Vital Signs Temp Pulse Resp BP Pulse Ox 12/06/18 11:15 14 105/51 95 12/06/18 11:00 112 14 108/53 96 12/06/18 10:00 110 14 104/52 94 12/06/18 09:05 15 94/52 92 12/06/18 09:00 125 14 92/50 92 12/06/18 08:00 98.7 F 138 14 90/48 92 12/06/18 07:19 14 111/56 91 12/06/18 07:00 159 15 115/54 88 12/06/18 06:00 154 14 90/48 90 12/06/18 05:14 14 89 12/06/18 04:57 153 14 101/51 91 12/06/18 04:00 98.7 F 139 14 100/52 92 12/06/18 03:51 15 103/54 89 12/06/18 03:12 143 12/06/18 03:00 145 14 98/52 90 12/06/18 02:00 145 14 106/57 90 12/06/18 01:11 14 93/54 91 12/06/18 01:00 143 14 92/55 91 12/06/18 00:00 98.5 F 136 14 94/56 91 12/05/18 23:18 14 90 12/05/18 23:00 133 14 115/59 92 12/05/18 22:00 122 14 109/55 92 12/05/18 21:40 14 113/57 92 12/05/18 21:00 128 14 128/60 92 12/05/18 20:00 97.7 F 141 14 93/50 91 12/05/18 19:50 131 12/05/18 19:43 14 91 12/05/18 19:00 120 14 124/55 93 12/05/18 18:00 116 14 99/47 92 12/05/18 17:25 14 103/50 92 12/05/18 17:00 121 14 98/50 93 12/05/18 16:57 97.7 F 12/05/18 16:35 14 100/49 94 12/05/18 16:00 119 14 95/49 92 12/05/18 15:00 121 14 113/55 92 12/05/18 14:00 132 14 117/58 93 12/05/18 13:47 14 98/49 91 12/05/18 13:00 130 14 106/52 92 Intake and Output 12/05/18 12/06/18 12/06/18 23:59 07:59 15:59 Intake Total 1123 / 2388 1725.3 / 1926.7 201.4 / 1926.7 Output Total 1866 / 3970 2327 / 3147 820 / 3147 Balance -743 / -1582 -601.7 / -1220.3 -618.6 / -1220.3 Intake: IV Fluids 610 / 1476 716.3 / 890.7 174.4 / 890.7 PrismaSATE BGK 4/2.5 5,000 ML @ 0 / 0 0 / 0 0 / 0 1000 mls/hr CRRT [facility] Rx#: [id number] Cardizem 50 MG In 0.9 % Sodium 7.7 / 7.7 Chloride 40 ML @ 5 MG/HR 5 mls/ hr IVC [facility] Rx#:[id number] FentaNYL (PF) 1,000 MCG In 0.9 100 / 292 124.6 / 180.0 55.4 / 180.0 % Sodium Chloride 80 ML @ 50 MCG/HR 5 mls/hr IVC CONT [facility] Rx #:[id number] Heparin 25,000 UNIT/250 ML D5W 147 / 292 208.8 / 250.0 41.2 / 250.0 25,000 unit In 250 ml @ 14 UNIT /KG/HR 15.414 mls/hr IVC . [id number] [facility] Rx#:[id number] Levophed 4 MG In Dextrose 5% 43 / 185 103 / 103 250 ML @ 8 MCG/MIN 30.48 mls/hr IVC [facility] Rx#:[id number] Diprivan 1,000 mg In 100 ml @ 300 / 677 269.9 / 340.0 70.1 / 340.0 20 MCG/KG/MIN 15.336 mls/hr IVC .[id number] [facility] Rx#:[id number] Maxipime 1,000 MG In Water for 10 / 10 inj. (sterile) 10 ML @ 300 mls/ hr IVP Q8HR [facility] Rx#:[id number] Tube Feeding 116 / 413 188 / 215 27 / 215 Other 397 / 499 821 / 821 Output: Camryn 651 / 819 1106 / 1106 Catheter 119 / 356 115 / 135 20 / 135 Fluid Removed by Prismaflex 1096 / 2795 1106 / 1906 800 / 1906 Other: Weight 127.8 kg 128 kg 128 kg Blood Glucose* 132 128 183 Patient Weight 12/06/18 23:59 Weight 128 kg - General Appearance General appearance: Present: sedated on ventilator, intubated EENT: Present: ATNC, mucous membranes moist Neck: Present: no JVD, supple Respiratory: Present: course breath sounds Cardiology: Present: edema (slightly improved), normal S1, normal S2 Dialysis Vascular Access: Venous Catheter (temp line) Gastrointestinal: Present: no tenderness, no guarding, obese Integumentary: Present: warm and dry Additional Comments: sedated Musculoskeletal: Present: no deformities Additional Comments: sedated - Lab 12/22/18 05:00 12/22/18 05:00 Most recent lab results 12/06/18 12/06/18 03:20 04:57 ABG pH 7.33 ABG pCO2 49 H ABG pO2 56 L ABG HCO3 26 ABG O2 Saturation 86 L Calcium 7.7 L Phosphorus 2.6 L Magnesium 2.4 Consult Discharge Plan - Plan Referrals: Kelly Cardozo CNP [Primary Care Provider] -
[2018-12-06] MEDS: Phenylephrine 20 MG in D5% in Water 250 ML IVC SCH ×2 (17:26→22:37)
[2018-12-07] MEDS: Norepinephrine 4 MG in D5% in Water 250 ML IVC SCH (01:49)
[2018-12-07] MEDS: PrismaSATE BGK 4/2.5 5,000 ML CRRT SCH ×10 (01:49→22:29)
[2018-12-07] MEDS: Insulin LISPRO 300 UNITS/3 ML VIAL SQ SCH ×6 (03:30→23:31)
[2018-12-07] MEDS: Artificial Tears SOLN 15 ML BOTTLE BOTH EYES SCH ×6 (03:30→23:31)
[2018-12-07] MEDS: Levalbuterol Neb 1.25 MG/3 ML IH SCH ×4 (03:37→22:00)
[2018-12-07 04:01] LABS: Hematocrit 37.8 % (35.3-44.9); Hemoglobin 11.6 g/dL (11.5-15.4); Immature Platelets 12.9 % (1.1-6.1); Mean Corpuscular HGB Conc 30.7 g/dL (31.6-35.5); Mean Corpuscular Hemoglobin 28.8 pg (28.0-33.3); Mean Corpuscular Volume 93.8 fL (83.0-100.0); Mean Platelet Volume 11.9 fL (9.4-12.4); Nucleated Red Blood Cells 0.2 /100 WBC (0); Platelet Count 141 K/mcL (140-400); Red Blood Count 4.03 M/mcL (3.82-4.97); Red Cell Distribution Width 17.2 % (11.5-14.5); White Blood Count 12.7 K/mcL (4.3-11.1)
[2018-12-07 04:15] LABS: BUN/Creatinine Ratio 9 (6-26); Blood Urea Nitrogen 8 mg/dL (8-23); Calcium 7.5 mg/dL (8.6-10.3); Carbon Dioxide 23 mEq/L (23-29); Chloride 100 mEq/L (98-107); Glucose 174 mg/dL (70-105); Osmolality,Calculated 279 (280-300); Potassium 3.6 mEq/L (3.5-5.1); Sodium 133 mEq/L (136-145); eGFR For African Americans > 60 (> 60); eGFR For Non-African Americans > 60 (> 60)
[2018-12-07 04:32] LABS: Lymphocytes # 2.3 K/mcL (0.6-4.6); Neutrophils # 8.4 K/mcL (1.6-8.9)
[2018-12-07 04:36] LABS: Anisocytosis 1+ (Not Present); Large Platelets Present (Not Present); Platelet Estimate Normal (Normal); Polychromasia 1+ (Not Present)
[2018-12-07 05:35] LABS: ABG Base Excess 0 mEq/L (-2 to 3); ABG HCO3 26 mEq/L (21-27); ABG Oxygen Saturation 90 % (95-98); ABG PCO2 45 mmHg (35-45); ABG PH 7.36 pH Units (7.32-7.45); ABG PO2 62 mmHg (85-104); ABG TCO2 27 mEq/L (20-26); Blood Gas Modality ASSIST CONTROL; Blood Gas PEEP 5 cm H2O; Blood Gas VT 550 cc
[2018-12-07] MEDS: FentaNYL (PF) 1,000 MCG in 0.9 % Sodium Chloride 80 ML IVC SCH ×2 (06:39→18:06)
[2018-12-07] MEDS: Pantoprazole 40 MG VIAL IVP SCH (07:40)
[2018-12-07] MEDS: *HR* Amiodarone 200 MG TABLET PO SCH (07:40)
[2018-12-07] MEDS: clonazePAM 0.5 MG TABLET PO SCH ×3 (07:40→20:06)
[2018-12-07] MEDS: Chlorhexidine Rinse 15 ML MOUTHWASH MM SCH ×2 (07:40→20:06)
[2018-12-07] MEDS: Cefepime HCl 1,000 MG in Water for inj. (sterile) 10 ML IVP SCH ×3 (07:40→23:33)
--- NOTE | 2018-12-07 08:41 | Urology Progress Note ---
<Lakshmi Zepeda N - Last Filed: 12/07/18 08:38> Date of Encounter: 12/07/18 Time of Encounter: 07:50 - Assessment and Plan (1) Hydronephrosis Current Visit: Yes Status: Acute Qualifiers: Hydronephrosis type: with ureteral calculous obstruction Qualified Code(s): N13.2 - Hydronephrosis with renal and ureteral calculous obstruction (2) Sepsis Current Visit: Yes Status: Acute Qualifiers: Sepsis type: sepsis due to unspecified organism Qualified Code(s): A41.9 - Sepsis, unspecified organism (3) Ureteral calculi Current Visit: Yes Status: Acute Assessment and plan: Patient is a 63-year-old female who presents 6 days status post cystoscopy, left retrograde pyelogram and left ureteral stent placement for a left ureteral calculus and urosepsis. Catheter is indwelling and draining sufficiently. Nephrology is following. Stone extraction will be planned pending patient's improvement and outcome in the upcoming weeks. Progress Note Narrative: POD #6. Patient seen and examined lying in bed in no apparent distress. Patient's nurses at bedside. Lama catheter is indwelling and draining transparent, clear yellow urine into bedside bag. Objective Initial Vital Signs Temp Pulse Resp BP Pulse Ox 98.5 F 106 15 101/67 93 12/01/18 00:23 12/01/18 00:23 12/01/18 00:23 12/01/18 00:23 12/01/18 00:23 - General physical appearance Present: no distress, no pain - Respiratory Present: normal expansion, other (Mechanical ventilation) - Abdomen Present: soft. Absent: distended - Genitourinary Urine Appearance: Present: Clear - Integumentary Present: no rash, no abnormal pigmentation - Musculoskeletal Present: normal posture - Psychiatric Present: other (Patient is sedated and mechanically ventilated). Absent: oriented to time, oriented to person, oriented to place, speech is normal, memory intact - Labs 12/07/18 03:41 12/07/18 00:41 Diabetes panel 12/07/18 Range/Units 00:41 Sodium 133 L (136-145) mEq/L Potassium 3.6 (3.5-5.1) mEq/L Chloride 100 (98-107) mEq/L Carbon Dioxide 23 (23-29) mEq/L BUN 8 (8-23) mg/dL Creatinine 0.89 (0.60-1.20) mg/dL Glucose 174 H (70-105) mg/dL Calcium 7.5 L (8.6-10.3) mg/dL Calcium panel 12/07/18 Range/Units 00:41 Calcium 7.5 L (8.6-10.3) mg/dL Pituitary panel 12/07/18 Range/Units 00:41 Sodium 133 L (136-145) mEq/L Potassium 3.6 (3.5-5.1) mEq/L Chloride 100 (98-107) mEq/L Carbon Dioxide 23 (23-29) mEq/L BUN 8 (8-23) mg/dL Creatinine 0.89 (0.60-1.20) mg/dL Glucose 174 H (70-105) mg/dL Calcium 7.5 L (8.6-10.3) mg/dL Adrenal panel 12/07/18 Range/Units 00:41 Sodium 133 L (136-145) mEq/L Potassium 3.6 (3.5-5.1) mEq/L Chloride 100 (98-107) mEq/L Carbon Dioxide 23 (23-29) mEq/L BUN 8 (8-23) mg/dL Creatinine 0.89 (0.60-1.20) mg/dL Glucose 174 H (70-105) mg/dL Calcium 7.5 L (8.6-10.3) mg/dL Consult Discharge Plan - Plan Referrals: Kelly Cardozo RN [Primary Care Provider] - <Manan Salguero - Last Filed: 12/08/18 19:09> Date of Encounter: 12/08/18 - Assessment and Plan (1) Ureteral calculi Current Visit: Yes Status: Acute Assessment and plan: agree with PA assessment and plan. She was not personally seen by MD on this date. (2) Hydronephrosis Current Visit: Yes Status: Acute Qualifiers: Hydronephrosis type: with ureteral calculous obstruction Qualified Code(s): N13.2 - Hydronephrosis with renal and ureteral calculous obstruction (3) Sepsis Current Visit: Yes Status: Acute Qualifiers: Sepsis type: Escherichia coli Qualified Code(s): A41.51 - Sepsis due to Escherichia coli [E. coli] Objective Initial Vital Signs Temp Pulse Resp BP Pulse Ox 98.5 F 106 15 101/67 93 12/01/18 00:23 12/01/18 00:23 12/01/18 00:23 12/01/18 00:23 12/01/18 00:23 - Labs 12/08/18 03:47 12/08/18 03:47 Diabetes panel 12/08/18 Range/Units 03:47 Sodium 132 L (136-145) mEq/L Potassium 4.0 (3.5-5.1) mEq/L Chloride 101 (98-107) mEq/L Carbon Dioxide 25 (23-29) mEq/L BUN 8 (8-23) mg/dL Creatinine 1.01 (0.60-1.20) mg/dL Glucose 192 H (70-105) mg/dL Calcium 7.7 L (8.6-10.3) mg/dL Calcium panel 12/08/18 Range/Units 03:47 Calcium 7.7 L (8.6-10.3) mg/dL Pituitary panel 12/08/18 Range/Units 03:47 Sodium 132 L (136-145) mEq/L Potassium 4.0 (3.5-5.1) mEq/L Chloride 101 (98-107) mEq/L Carbon Dioxide 25 (23-29) mEq/L BUN 8 (8-23) mg/dL Creatinine 1.01 (0.60-1.20) mg/dL Glucose 192 H (70-105) mg/dL Calcium 7.7 L (8.6-10.3) mg/dL Adrenal panel 12/08/18 Range/Units 03:47 Sodium 132 L (136-145) mEq/L Potassium 4.0 (3.5-5.1) mEq/L Chloride 101 (98-107) mEq/L Carbon Dioxide 25 (23-29) mEq/L BUN 8 (8-23) mg/dL Creatinine 1.01 (0.60-1.20) mg/dL Glucose 192 H (70-105) mg/dL Calcium 7.7 L (8.6-10.3) mg/dL
[2018-12-07] MEDS: Phenylephrine 50 MG in D5% in Water 250 ML IVC SCH ×3 (09:21→23:30)
[2018-12-07] MEDS: Budesonide/Formoterol 160/4.5 1 PUFF INH IH SCH ×2 (09:49→22:01)
--- NOTE | 2018-12-07 11:14 | Pulmonology Progress Note ---
<Narcisa Yip - Last Filed: 12/07/18 11:44> Date of Encounter: 12/07/18 Time of Encounter: 11:44 Subjective Principal diagnosis: RANCHO Interval history: Ms. Rascon was seen at bedside this morning. Vitals were reviewed and she remained afebrile overnight. She is sedated and intubated. Her heart rate was elevated likely secondary to not be drip which has been discontinued at this time. Objective PUL Vital signs: Last Vital Signs Temp 97.8 F 12/07/18 08:00 Pulse 110 12/07/18 11:00 Resp 14 12/07/18 11:00 BP 99/49 12/07/18 11:00 Pulse Ox 97 12/07/18 11:00 Ventilator Settings Ventilator Settings: Ventilator Settings, Last 8 Hours Ventilator Tidal Volume 550 Setting Ventilator Tidal Volume 550 Setting Ventilator Tidal Volume 550 Setting Ventilator Tidal Volume 550 Setting Ventilator Tidal Volume 550 Setting Ventilator Tidal Volume 550 Setting Ventilator Tidal Volume 550 Setting Ventilator Tidal Volume 550 Setting Ventilator Tidal Volume 550 Setting Ventilator Tidal Volume 550 Setting Ventilator Respiratory Rate 14 Setting Ventilator Respiratory Rate 14 Setting Ventilator Respiratory Rate 14 Setting Ventilator Respiratory Rate 14 Setting Ventilator Respiratory Rate 14 Setting Ventilator Respiratory Rate 14 Setting Ventilator Respiratory Rate 14 Setting Ventilator Respiratory Rate 14 Setting Ventilator Respiratory Rate 14 Setting Ventilator Respiratory Rate 14 Setting Actual Respiratory Rate 14 Actual Respiratory Rate 14 Actual Respiratory Rate 14 Actual Respiratory Rate 15 Actual Respiratory Rate 14 Actual Respiratory Rate 14 Positive End Expiratory 5 Pressure Positive End Expiratory 5 Pressure Positive End Expiratory 5 Pressure Positive End Expiratory 5 Pressure Positive End Expiratory 5 Pressure Positive End Expiratory 5 Pressure Positive End Expiratory 5 Pressure Positive End Expiratory 5 Pressure Positive End Expiratory 5 Pressure Peak Inspiratory Airway 34 Pressure Peak Inspiratory Airway 36 Pressure Peak Inspiratory Airway 31 Pressure Peak Inspiratory Airway 30 Pressure Peak Inspiratory Airway 32 Pressure Peak Inspiratory Airway 32 Pressure Peak Inspiratory Airway 29 Pressure Peak Inspiratory Airway 30 Pressure Peak Inspiratory Airway 30 Pressure Results - Laboratory Findings CBC and BMP: 12/07/18 03:41 12/07/18 00:41 ABG ABG pH 7.36 pH Units (7.32-7.45) 12/07/18 05:31 ABG pCO2 45 mmHg (35-45) 12/07/18 05:31 ABG pO2 62 mmHg (85-104) L 12/07/18 05:31 ABG O2 Saturation 90 % (95-98) L 12/07/18 05:31 PT/INR, D-dimer PT 13.7 Seconds (9.4-12.1) H 12/03/18 11:55 Abnormal lab findings: Abnormal lab results WBC 12.7 K/mcL (4.3-11.1) H 12/07/18 03:41 Hct 45.3 % (35.3-44.9) H 12/01/18 03:19 MCHC 30.7 g/dL (31.6-35.5) L 12/07/18 03:41 RDW 17.2 % (11.5-14.5) H 12/07/18 03:41 Plt Count 130 K/mcL (140-400) L 12/06/18 03:20 Neutrophils # 9.5 K/mcL (1.6-8.9) H 12/06/18 03:20 Monocytes # 2.0 K/mcL (0.0-1.3) H 12/07/18 03:41 Nucleated RBCs/100 WBC 0.2 /100 WBC (0) H 12/07/18 03:41 Platelet Estimate Slight Decrease (Normal) L 12/06/18 03:20 Large Platelets Present (Not Present) A 12/07/18 03:41 Immature Plt Fraction 12.9 % (1.1-6.1) H 12/07/18 03:41 Polychromasia 1+ (Not Present) A 12/07/18 03:41 Anisocytosis 1+ (Not Present) A 12/07/18 03:41 PT 13.7 Seconds (9.4-12.1) H 12/03/18 11:55 APTT 36.4 Seconds (26.0-36.0) H 12/01/18 03:19 Heparin Anti-Xa, Unfract 0.24 IU/mL (0.30-0.70) L 12/04/18 04:00 ABG pH 7.16 pH Units (7.32-7.45) L* 12/03/18 06:23 ABG pCO2 49 mmHg (35-45) H 12/06/18 04:57 ABG pO2 62 mmHg (85-104) L 12/07/18 05:31 ABG HCO3 28 mEq/L (21-27) H 12/05/18 04:22 ABG Total CO2 27 mEq/L (20-26) H 12/07/18 05:31 ABG O2 Saturation 90 % (95-98) L 12/07/18 05:31 ABG Base Excess -9 mEq/L (-2 to 3) L 12/03/18 06:23 Sodium 133 mEq/L (136-145) L 12/07/18 00:41 Chloride 111 mEq/L (98-107) H 12/02/18 04:21 Carbon Dioxide 19 mEq/L (23-29) L 12/03/18 04:00 BUN 28 mg/dL (8-23) H 12/04/18 04:27 Creatinine 1.26 mg/dL (0.60-1.20) H 12/05/18 03:40 Est GFR ( Amer) 56 (> 60) L 12/06/18 03:20 Est GFR (Non-Af Amer) 46 (> 60) L 12/06/18 03:20 Glucose 174 mg/dL (70-105) H 12/07/18 00:41 POC Glucose 142 mg/dL (70-99) H 12/07/18 03:29 Hemoglobin A1c 8.6 % (-5.6) H 12/01/18 03:19 Calculated Osmolality 279 (280-300) L 12/07/18 00:41 Calcium 7.5 mg/dL (8.6-10.3) L 12/07/18 00:41 Phosphorus 2.6 mg/dL (2.7-4.5) L 12/06/18 03:20 Magnesium 1.4 mg/dL (1.6-2.6) L 12/02/18 04:21 Serum Total Protein 6.1 g/dL (6.4-8.9) L 12/01/18 03:19 Albumin 3.3 g/dL (3.5-5.7) L 12/01/18 03:19 Prealbumin 3.4 mg/dL (17.0-34.0) L 12/03/18 04:00 HDL Cholesterol 22 mg/dL (40-59) L 12/01/18 03:19 Urine Clarity Cloudy (Clear) A 12/01/18 04:23 Urine Blood Moderate (Negative) H 12/01/18 04:23 Urine Nitrite Positive (Negative) A 12/01/18 04:23 Ur Leukocyte Esterase Large (Negative) H 12/01/18 04:23 Urine Microscopic WBC 3-5 per hpf (0-3) H 12/01/18 04:23 Ur Squamous Epith Cells Many per lpf (None-Few) H 12/01/18 04:23 Urine Bacteria Moderate per hpf (None-Few) H 12/01/18 04:23 E. coli (PCR) DETECTED (Not Detect) A 12/01/18 03:50 - Microbiology Findings Microbiology Findings: Microbiology, Last 48 Hours 12/02/18 07:08 Blood Culture - Final Peripheral Venipuncture No growth. Final report. 12/02/18 07:08 Blood Culture - Final Peripheral Venipuncture No growth. Final report. 12/01/18 08:11 Anaerobic Culture - Final Left Kidney No anaerobes were recovered. 12/01/18 08:11 Surgical Biopsy Culture - Preliminary Left Kidney Gram Positive Cocci Proteus mirabilis Escherichia coli - Clinical Findings Intake & Output: Intake & Output 12/06/18 12/07/18 12/07/18 23:59 07:59 15:59 Intake Total 1083 / 3531.0 632 / 817 185 / 817 Output Total 2018 / 6683 1901 / 3015 1114 / 3015 Balance -936 / -3153.0 -1269 / -2198 -929 / -2198 Weight 128 kg 126.2 kg 126.2 kg Consult Discharge Plan - Plan Referrals: eKlly Cardozo, RN [Primary Care Provider] - <German Mitchell - Last Filed: 12/07/18 12:43> Date of Encounter: 12/07/18 Objective PUL Vital signs: Last Vital Signs Temp 97.8 F 12/07/18 08:00 Pulse 101 12/07/18 12:00 Resp 14 12/07/18 12:00 BP 94/45 12/07/18 12:00 Pulse Ox 97 12/07/18 12:00 Ventilator Settings Ventilator Settings: Ventilator Settings, Last 8 Hours Ventilator Tidal Volume 550 Setting Ventilator Tidal Volume 550 Setting Ventilator Tidal Volume 550 Setting Ventilator Tidal Volume 550 Setting Ventilator Tidal Volume 550 Setting Ventilator Tidal Volume 550 Setting Ventilator Tidal Volume 550 Setting Ventilator Tidal Volume 550 Setting Ventilator Tidal Volume 550 Setting Ventilator Respiratory Rate 14 Setting Ventilator Respiratory Rate 14 Setting Ventilator Respiratory Rate 14 Setting Ventilator Respiratory Rate 14 Setting Ventilator Respiratory Rate 14 Setting Ventilator Respiratory Rate 14 Setting Ventilator Respiratory Rate 14 Setting Ventilator Respiratory Rate 14 Setting Ventilator Respiratory Rate 14 Setting Actual Respiratory Rate 14 Actual Respiratory Rate 14 Actual Respiratory Rate 14 Actual Respiratory Rate 15 Positive End Expiratory 5 Pressure Positive End Expiratory 5 Pressure Positive End Expiratory 5 Pressure Positive End Expiratory 5 Pressure Positive End Expiratory 5 Pressure Positive End Expiratory 5 Pressure Positive End Expiratory 5 Pressure Positive End Expiratory 5 Pressure Peak Inspiratory Airway 32 Pressure Peak Inspiratory Airway 34 Pressure Peak Inspiratory Airway 36 Pressure Peak Inspiratory Airway 31 Pressure Peak Inspiratory Airway 30 Pressure Peak Inspiratory Airway 32 Pressure Peak Inspiratory Airway 32 Pressure Peak Inspiratory Airway 29 Pressure Results - Laboratory Findings CBC and BMP: 12/07/18 03:41 12/07/18 00:41 ABG ABG pH 7.36 pH Units (7.32-7.45) 12/07/18 05:31 ABG pCO2 45 mmHg (35-45) 12/07/18 05:31 ABG pO2 62 mmHg (85-104) L 12/07/18 05:31 ABG O2 Saturation 90 % (95-98) L 12/07/18 05:31 PT/INR, D-dimer PT 13.7 Seconds (9.4-12.1) H 12/03/18 11:55 Abnormal lab findings: Abnormal lab results WBC 12.7 K/mcL (4.3-11.1) H 12/07/18 03:41 Hct 45.3 % (35.3-44.9) H 12/01/18 03:19 MCHC 30.7 g/dL (31.6-35.5) L 12/07/18 03:41 RDW 17.2 % (11.5-14.5) H 12/07/18 03:41 Plt Count 130 K/mcL (140-400) L 12/06/18 03:20 Neutrophils # 9.5 K/mcL (1.6-8.9) H 12/06/18 03:20 Monocytes # 2.0 K/mcL (0.0-1.3) H 12/07/18 03:41 Nucleated RBCs/100 WBC 0.2 /100 WBC (0) H 12/07/18 03:41 Platelet Estimate Slight Decrease (Normal) L 12/06/18 03:20 Large Platelets Present (Not Present) A 12/07/18 03:41 Immature Plt Fraction 12.9 % (1.1-6.1) H 12/07/18 03:41 Polychromasia 1+ (Not Present) A 12/07/18 03:41 Anisocytosis 1+ (Not Present) A 12/07/18 03:41 PT 13.7 Seconds (9.4-12.1) H 12/03/18 11:55 APTT 36.4 Seconds (26.0-36.0) H 12/01/18 03:19 Heparin Anti-Xa, Unfract 0.24 IU/mL (0.30-0.70) L 12/04/18 04:00 ABG pH 7.16 pH Units (7.32-7.45) L* 12/03/18 06:23 ABG pCO2 49 mmHg (35-45) H 12/06/18 04:57 ABG pO2 62 mmHg (85-104) L 12/07/18 05:31 ABG HCO3 28 mEq/L (21-27) H 12/05/18 04:22 ABG Total CO2 27 mEq/L (20-26) H 12/07/18 05:31 ABG O2 Saturation 90 % (95-98) L 12/07/18 05:31 ABG Base Excess -9 mEq/L (-2 to 3) L 12/03/18 06:23 Sodium 133 mEq/L (136-145) L 12/07/18 00:41 Chloride 111 mEq/L (98-107) H 12/02/18 04:21 Carbon Dioxide 19 mEq/L (23-29) L 12/03/18 04:00 BUN 28 mg/dL (8-23) H 12/04/18 04:27 Creatinine 1.26 mg/dL (0.60-1.20) H 12/05/18 03:40 Est GFR ( Amer) 56 (> 60) L 12/06/18 03:20 Est GFR (Non-Af Amer) 46 (> 60) L 12/06/18 03:20 Glucose 174 mg/dL (70-105) H 12/07/18 00:41 POC Glucose 142 mg/dL (70-99) H 12/07/18 03:29 Hemoglobin A1c 8.6 % (-5.6) H 12/01/18 03:19 Calculated Osmolality 279 (280-300) L 12/07/18 00:41 Calcium 7.5 mg/dL (8.6-10.3) L 12/07/18 00:41 Phosphorus 2.6 mg/dL (2.7-4.5) L 12/06/18 03:20 Magnesium 1.4 mg/dL (1.6-2.6) L 12/02/18 04:21 Serum Total Protein 6.1 g/dL (6.4-8.9) L 12/01/18 03:19 Albumin 3.3 g/dL (3.5-5.7) L 12/01/18 03:19 Prealbumin 3.4 mg/dL (17.0-34.0) L 12/03/18 04:00 HDL Cholesterol 22 mg/dL (40-59) L 12/01/18 03:19 Urine Clarity Cloudy (Clear) A 12/01/18 04:23 Urine Blood Moderate (Negative) H 12/01/18 04:23 Urine Nitrite Positive (Negative) A 12/01/18 04:23 Ur Leukocyte Esterase Large (Negative) H 12/01/18 04:23 Urine Microscopic WBC 3-5 per hpf (0-3) H 12/01/18 04:23 Ur Squamous Epith Cells Many per lpf (None-Few) H 12/01/18 04:23 Urine Bacteria Moderate per hpf (None-Few) H 12/01/18 04:23 E. coli (PCR) DETECTED (Not Detect) A 12/01/18 03:50 - Microbiology Findings Microbiology Findings: Microbiology, Last 48 Hours 12/02/18 07:08 Blood Culture - Final Peripheral Venipuncture No growth. Final report. 12/02/18 07:08 Blood Culture - Final Peripheral Venipuncture No growth. Final report. 12/01/18 08:11 Anaerobic Culture - Final Left Kidney No anaerobes were recovered. 12/01/18 08:11 Surgical Biopsy Culture - Preliminary Left Kidney Gram Positive Cocci Proteus mirabilis Escherichia coli - Clinical Findings Intake & Output: Intake & Output 12/06/18 12/07/18 12/07/18 23:59 07:59 15:59 Intake Total 1083 / 3531.0 632 / 986 354 / 986 Output Total 2018 1901 / 3396 1495 / 3396 Balance -936 / -3153.0 -1269 / -2410 -1141 / -2410 Weight 128 kg 126.2 kg 126.2 kg - Attending Attestation I examined this patient and my medical decision-making was reviewed with the Resident Physician. I agree with the documented findings, disposition and treatment plan as described except to the extent set forth below. We independently had [id number] contact with the patient I spent 36min of Critical Care time with this patient. It involved decision making of high complexity to assess, manipulate, and support vital organ system failure and/or to prevent further life threatening deterioration of the patient's condition. The time involved in the performance of separately report able procedures was not counted toward critical care time. Patient seen and examined at bedside Labs, radiology, chart personally reviewed. Management was reviewed during multidisciplinary critical care rounds. 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 She will also require aggressive fluid removal for hydrostatic pulmonary edema. We will continue bronchodilators for suspected COPD Cards: Cardiogenic shock with A. fib with RVR requiring vasopressor support will switch from Levothroid the phenylephrine will concentrate solution and she is also on amiodarone may need to also continue the calcium channel kiana unable to this slow her heart rate down I suspect that this fluid removal improves atrial stretch A. fib would be better controlled as well GI: GI prophylaxis given while on vent Nutrition: Nutrition per dietary recommendations Renal: Acute kidney injury with metabolic acidosis requiring continuous renal replacement therapy appreciate nephrology recommendations UOP Monitored, Cont to Trend sCr and monitor Electrolytes. ID: She has a pyelonephritis with some possible infected ureteral stent urology has been following and she is on broad-spectrum antibiotics which will tailor to sensitivities she has both Escherichia coli and Proteus and a third microorganism which is waiting to result clinically fill that to infectious processes is under control at this time but will need to follow very closely Heme/Onc: DVT prophylaxis given she is on heparin infusion right now for the dialysis and H&H/platelets are stable Endo: Glucose Monitored Integ/MSK: Skin Care per routine ICU Nursing Protocol to prevent ulcers. Lines: All lines examined without evidence of infection : Dispo: Monitor in ICU for critical illness CODE:DNAR/Guarded
[2018-12-07 11:42] LABS: Magnesium 2.3 mg/dL (1.6-2.6)
[2018-12-07] MEDS: Heparin 25,000 UNIT/250 ML D5W 25,000 UNIT/250 ML IV.SOLN IVC SCH (13:26)
[2018-12-07] MEDS: Docusate Oral Soln 100 MG/10 ML UDC PO SCH ×2 (14:52→20:06)
[2018-12-07] MEDS ORDERED: *HR* Heparin 5,000 UNIT/ML VIAL ONE (16:01)
[2018-12-07] MEDS ORDERED: 0.9 % Sodium Chloride 1,000 ML ONE ×2 (16:01→17:49)
--- NOTE | 2018-12-07 17:37 | Nephrology Progress Note ---
Date of Encounter: 12/07/18 Time of Encounter: 12:00 - Assessment and Plan (1) Acute and chronic respiratory failure with hypoxia Current Visit: Yes Status: Acute Vent management per primary team (2) Acute kidney injury superimposed on CKD Current Visit: Yes Status: Acute Continue CVVHDF as prescribed with negative fluid balance Goal of 100cc to 200cc/hr fluid removal as tolerated UOP noted at 243cc in the past 24hrs, oliguric and no signs of renal recovery yet Continue to avoid nephrotoxins if possible (3) Sepsis Current Visit: Yes Status: Deleted Antibiotics as per primary with renal dosing. Qualifiers: Sepsis type: sepsis due to unspecified organism Qualified Code(s): A41.9 - Sepsis, unspecified organism; R65.20 - Severe sepsis without septic shock (4) Hydronephrosis Current Visit: Yes Status: Acute per urology, previously seen Qualifiers: Hydronephrosis type: with ureteral calculous obstruction Qualified Code(s): N13.2 - Hydronephrosis with renal and ureteral calculous obstruction (5) Metabolic acidosis Current Visit: Yes Status: Acute Resolved. Subjective Principal diagnosis: RANCHO Interval history: Pt seen and examined remains intubated on CRRT, doing well per nurse and pressor support, achieving daily negative fluid balance Objective - Vital Signs Vital signs: Vital Signs Temp Pulse Resp BP Pulse Ox 12/07/18 17:00 92 15 106/50 95 12/07/18 16:00 98.1 F 96 14 98/44 96 12/07/18 15:15 14 129/59 96 12/07/18 15:00 84 14 121/51 97 12/07/18 14:00 96 14 97/44 97 12/07/18 13:15 14 111/55 97 12/07/18 13:00 91 14 103/47 97 12/07/18 12:00 98.3 F 101 14 94/45 97 12/07/18 11:35 15 110/53 100 12/07/18 11:00 110 14 99/49 97 12/07/18 10:00 111 14 114/52 98 12/07/18 09:49 14 105/50 97 12/07/18 09:00 137 15 91/50 94 12/07/18 08:00 97.8 F 125 15 91/50 94 12/07/18 07:40 15 94/53 95 12/07/18 07:00 121 14 81/46 94 12/07/18 06:00 117 14 96/53 94 12/07/18 05:00 115 15 85/48 94 12/07/18 04:00 96.4 F L 108 14 90/48 95 12/07/18 03:41 14 95/50 96 12/07/18 03:00 105 15 119/54 97 12/07/18 02:00 98 14 96/46 97 12/07/18 01:08 14 91/43 97 12/07/18 01:00 88 14 90/53 96 12/07/18 00:00 96 F L 85 14 93/44 96 12/06/18 23:55 14 93/44 96 12/06/18 23:00 82 14 86/43 98 12/06/18 22:00 89 14 84/42 96 12/06/18 21:50 14 88/42 96 12/06/18 21:00 92 14 79/40 95 12/06/18 20:25 14 126/55 97 12/06/18 20:00 96.4 F L 92 14 116/54 95 12/06/18 19:00 76 14 99/48 95 12/06/18 18:00 77 14 103/49 96 Intake and Output 12/07/18 12/07/18 12/07/18 07:59 15:59 23:59 Intake Total 632 / 1408.5 746.5 / 1408.5 30 / 1408.5 Output Total 1901 / 4821 2343 / 4821 577 / 4821 Balance -1269 / -3412.5 -1596.5 / -3412.5 -547 / -3412.5 Intake: IV Fluids 632 / 1408.5 746.5 / 1408.5 30 / 1408.5 PrismaSATE BGK 4/2.5 5,000 ML @ 0 / 0 0 / 0 1000 mls/hr CRRT [facility] Rx#: [id number] Cardizem 50 MG In 0.9 % Sodium 43 / 109.5 66.5 / 109.5 Chloride 40 ML @ 5 MG/HR 5 mls/ hr IVC [facility] Rx#:[id number] FentaNYL (PF) 1,000 MCG In 0.9 100 / 130 30 / 130 % Sodium Chloride 80 ML @ 50 MCG/HR 5 mls/hr IVC CONT [facility] Rx #:[id number] Heparin 25,000 UNIT/250 ML D5W 250 / 250 25,000 unit In 250 ml @ 14 UNIT /KG/HR 15.414 mls/hr IVC . [id number] [facility] Rx#:[id number] Levophed 4 MG In Dextrose 5% 79 / 154 75 / 154 250 ML @ 8 MCG/MIN 30.48 mls/hr IVC [facility] Rx#:[id number] Phenylephrine 50 MG In Dextrose 200 / 455 225 / 455 30 / 455 5% 250 ML @ 100 MCG/MIN 30.6 mls/hr IVC CONT [facility] Rx#: [id number] Diprivan 1,000 mg In 100 ml @ 200 / 300 100 / 300 20 MCG/KG/MIN 15.336 mls/hr IVC .[id number] [facility] Rx#:[id number] Maxipime 1,000 MG In Water for 10 / 10 inj. (sterile) 10 ML @ 300 mls/ hr IVP Q8HR [facility] Rx#:[id number] Output: Catheter 48 / 125 69 / 125 8 / 125 Gastric Drainage 90 / 340 150 / 340 100 / 340 Fluid Removed by Prismaflex 1763 / 4356 2124 / 4356 469 / 4356 Other: Weight 126.2 kg 126.2 kg 126.2 kg Blood Glucose* 142 170 177 Patient Weight 12/07/18 23:59 Weight 126.2 kg - General Appearance General appearance: Present: sedated on ventilator, intubated EENT: Present: ATNC, mucous membranes moist Neck: Present: no JVD, supple Respiratory: Present: clear Cardiology: Present: edema (improving), normal S1, normal S2 Dialysis Vascular Access: Venous Catheter (temp line) Gastrointestinal: Present: no tenderness, no guarding, obese Integumentary: Present: warm and dry Additional Comments: sedated Musculoskeletal: Present: no deformities Additional Comments: sedated - Lab 12/22/18 05:00 12/22/18 05:00 Most recent lab results 12/07/18 00:41 Calcium 7.5 L Magnesium 2.3 Consult Discharge Plan - Plan Referrals: Kelly Cardozo, CHRISTY [Primary Care Provider] -
[2018-12-07] MEDS ORDERED: 0.9 % Sodium Chloride 500 ML ONE (17:41)
[2018-12-07] MEDS: *HR* Heparin 5,000 UNIT/ML VIAL IV PRN (18:00)
[2018-12-07] MEDS: Dexmedetomidine HCl 400 MCG/100 ML MLS IVC SCH (20:06)
[2018-12-08] MEDS: Dexmedetomidine HCl 400 MCG/100 ML MLS IVC SCH ×4 (03:24→23:29)
[2018-12-08] MEDS: Artificial Tears SOLN 15 ML BOTTLE BOTH EYES SCH ×6 (03:25→23:21)
[2018-12-08] MEDS: Insulin LISPRO 300 UNITS/3 ML VIAL SQ SCH ×6 (03:25→23:22)
[2018-12-08] MEDS: PrismaSATE BGK 4/2.5 5,000 ML CRRT SCH ×10 (03:33→23:44)
[2018-12-08] MEDS: Levalbuterol Neb 1.25 MG/3 ML IH SCH ×4 (03:33→21:44)
[2018-12-08 04:03] LABS: Hematocrit 37.5 % (35.3-44.9); Hemoglobin 11.5 g/dL (11.5-15.4); Mean Corpuscular HGB Conc 30.7 g/dL (31.6-35.5); Mean Corpuscular Hemoglobin 28.4 pg (28.0-33.3); Mean Corpuscular Volume 92.6 fL (83.0-100.0); Mean Platelet Volume 11.9 fL (9.4-12.4); Nucleated Red Blood Cells 0.5 /100 WBC (0); Platelet Count 163 K/mcL (140-400); Red Blood Count 4.05 M/mcL (3.82-4.97); Red Cell Distribution Width 17.2 % (11.5-14.5)
[2018-12-08 04:07] LABS: White Blood Count 20.2 K/mcL (4.3-11.1)
[2018-12-08 04:21] LABS: BUN/Creatinine Ratio 8 (6-26); Blood Urea Nitrogen 8 mg/dL (8-23); Calcium 7.7 mg/dL (8.6-10.3); Carbon Dioxide 25 mEq/L (23-29); Chloride 101 mEq/L (98-107); Glucose 192 mg/dL (70-105); Osmolality,Calculated 278 (280-300); Sodium 132 mEq/L (136-145); eGFR For African Americans > 60 (> 60); eGFR For Non-African Americans 55 (> 60)
[2018-12-08] MEDS: FentaNYL (PF) 1,000 MCG in 0.9 % Sodium Chloride 80 ML IVC SCH ×2 (04:23→17:37)
[2018-12-08 04:33] LABS: Anisocytosis 1+ (Not Present); Eosinophils # 0.8 K/mcL (0.0-0.6); Lymphocytes # 2.4 K/mcL (0.6-4.6); Platelet Estimate Normal (Normal); Polychromasia 1+ (Not Present); Smudge Cells Present (Not Present)
[2018-12-08] MEDS: Heparin 25,000 UNIT/250 ML D5W 25,000 UNIT/250 ML IV.SOLN IVC SCH ×2 (04:33→18:07)
[2018-12-08] MEDS: Phenylephrine 50 MG in D5% in Water 250 ML IVC SCH ×3 (04:35→16:40)
[2018-12-08 04:56] LABS: ABG Base Excess 0 mEq/L (-2 to 3); ABG HCO3 25 mEq/L (21-27); ABG Oxygen Saturation 95 % (95-98); ABG PCO2 38 mmHg (35-45); ABG PH 7.42 pH Units (7.32-7.45); ABG PO2 72 mmHg (85-104); ABG TCO2 26 mEq/L (20-26); Blood Gas PEEP 5 cm H2O; Blood Gas VT 550 cc
--- NOTE | 2018-12-08 08:17 | Pulmonology Progress Note ---
<PaulaGerman W - Last Filed: 12/08/18 09:35> Date of Encounter: 12/08/18 Objective PUL Vital signs: Last Vital Signs Temp 98.9 F 12/08/18 08:00 Pulse 73 12/08/18 08:00 Resp 14 12/08/18 08:00 BP 108/58 12/08/18 08:00 Pulse Ox 97 12/08/18 08:00 Ventilator Settings Ventilator Settings: Ventilator Settings, Last 8 Hours Ventilator Tidal Volume 550 Setting Ventilator Tidal Volume 550 Setting Ventilator Tidal Volume 550 Setting Ventilator Tidal Volume 550 Setting Ventilator Tidal Volume 550 Setting Ventilator Tidal Volume 550 Setting Ventilator Tidal Volume 550 Setting Ventilator Tidal Volume 550 Setting Ventilator Tidal Volume 550 Setting Ventilator Tidal Volume 550 Setting Ventilator Tidal Volume 550 Setting Ventilator Tidal Volume 550 Setting Ventilator Tidal Volume 550 Setting Ventilator Respiratory Rate 14 Setting Ventilator Respiratory Rate 14 Setting Ventilator Respiratory Rate 14 Setting Ventilator Respiratory Rate 14 Setting Ventilator Respiratory Rate 14 Setting Ventilator Respiratory Rate 14 Setting Ventilator Respiratory Rate 14 Setting Ventilator Respiratory Rate 14 Setting Ventilator Respiratory Rate 14 Setting Ventilator Respiratory Rate 14 Setting Ventilator Respiratory Rate 14 Setting Ventilator Respiratory Rate 14 Setting Ventilator Respiratory Rate 14 Setting Actual Respiratory Rate 14 Actual Respiratory Rate 15 Actual Respiratory Rate 15 Actual Respiratory Rate 19 Actual Respiratory Rate 16 Actual Respiratory Rate 16 Actual Respiratory Rate 14 Actual Respiratory Rate 16 Actual Respiratory Rate 17 Actual Respiratory Rate 15 Actual Respiratory Rate 15 Positive End Expiratory 5 Pressure Positive End Expiratory 5 Pressure Positive End Expiratory 5 Pressure Positive End Expiratory 5 Pressure Positive End Expiratory 5 Pressure Positive End Expiratory 5 Pressure Positive End Expiratory 5 Pressure Positive End Expiratory 5 Pressure Positive End Expiratory 5 Pressure Positive End Expiratory 5 Pressure Positive End Expiratory 5 Pressure Positive End Expiratory 5 Pressure Positive End Expiratory 5 Pressure Peak Inspiratory Airway 30 Pressure Peak Inspiratory Airway 30 Pressure Peak Inspiratory Airway 31 Pressure Peak Inspiratory Airway 29 Pressure Peak Inspiratory Airway 28 Pressure Peak Inspiratory Airway 30 Pressure Peak Inspiratory Airway 34 Pressure Peak Inspiratory Airway 29 Pressure Peak Inspiratory Airway 30 Pressure Peak Inspiratory Airway 34 Pressure Peak Inspiratory Airway 31 Pressure Peak Inspiratory Airway 31 Pressure Results - Laboratory Findings CBC and BMP: 12/08/18 03:47 12/08/18 03:47 ABG ABG pH 7.42 pH Units (7.32-7.45) 12/08/18 04:53 ABG pCO2 38 mmHg (35-45) 12/08/18 04:53 ABG pO2 72 mmHg (85-104) L 12/08/18 04:53 ABG O2 Saturation 95 % (95-98) 12/08/18 04:53 PT/INR, D-dimer PT 13.7 Seconds (9.4-12.1) H 12/03/18 11:55 Abnormal lab findings: Abnormal lab results WBC 20.2 K/mcL (4.3-11.1) H D 12/08/18 03:47 Hct 45.3 % (35.3-44.9) H 12/01/18 03:19 MCHC 30.7 g/dL (31.6-35.5) L 12/08/18 03:47 RDW 17.2 % (11.5-14.5) H 12/08/18 03:47 Plt Count 130 K/mcL (140-400) L 12/06/18 03:20 Band Neutrophils % 8.0 % (0-4) H 12/08/18 03:47 Neutrophils # 15.0 K/mcL (1.6-8.9) H 12/08/18 03:47 Monocytes # 2.0 K/mcL (0.0-1.3) H 12/08/18 03:47 Eosinophils # 0.8 K/mcL (0.0-0.6) H 12/08/18 03:47 Nucleated RBCs/100 WBC 0.5 /100 WBC (0) H 12/08/18 03:47 Smudge Cells Present (Not Present) A 12/08/18 03:47 Platelet Estimate Slight Decrease (Normal) L 12/06/18 03:20 Large Platelets Present (Not Present) A 12/07/18 03:41 Immature Plt Fraction 12.9 % (1.1-6.1) H 12/07/18 03:41 Polychromasia 1+ (Not Present) A 12/08/18 03:47 Anisocytosis 1+ (Not Present) A 12/08/18 03:47 PT 13.7 Seconds (9.4-12.1) H 12/03/18 11:55 APTT 36.4 Seconds (26.0-36.0) H 12/01/18 03:19 Heparin Anti-Xa, Unfract 0.29 IU/mL (0.30-0.70) L 12/08/18 03:47 ABG pH 7.16 pH Units (7.32-7.45) L* 12/03/18 06:23 ABG pCO2 49 mmHg (35-45) H 12/06/18 04:57 ABG pO2 72 mmHg (85-104) L 12/08/18 04:53 ABG HCO3 28 mEq/L (21-27) H 12/05/18 04:22 ABG Total CO2 27 mEq/L (20-26) H 12/07/18 05:31 ABG O2 Saturation 90 % (95-98) L 12/07/18 05:31 ABG Base Excess -9 mEq/L (-2 to 3) L 12/03/18 06:23 Sodium 132 mEq/L (136-145) L 12/08/18 03:47 Chloride 111 mEq/L (98-107) H 12/02/18 04:21 Carbon Dioxide 19 mEq/L (23-29) L 12/03/18 04:00 BUN 28 mg/dL (8-23) H 12/04/18 04:27 Creatinine 1.26 mg/dL (0.60-1.20) H 12/05/18 03:40 Est GFR ( Amer) 56 (> 60) L 12/06/18 03:20 Est GFR (Non-Af Amer) 55 (> 60) L 12/08/18 03:47 Glucose 192 mg/dL (70-105) H 12/08/18 03:47 POC Glucose 151 mg/dL (70-99) H 12/07/18 23:28 Hemoglobin A1c 8.6 % (-5.6) H 12/01/18 03:19 Calculated Osmolality 278 (280-300) L 12/08/18 03:47 Calcium 7.7 mg/dL (8.6-10.3) L 12/08/18 03:47 Phosphorus 2.6 mg/dL (2.7-4.5) L 12/06/18 03:20 Magnesium 1.4 mg/dL (1.6-2.6) L 12/02/18 04:21 Serum Total Protein 6.1 g/dL (6.4-8.9) L 12/01/18 03:19 Albumin 3.3 g/dL (3.5-5.7) L 12/01/18 03:19 Prealbumin 3.4 mg/dL (17.0-34.0) L 12/03/18 04:00 HDL Cholesterol 22 mg/dL (40-59) L 12/01/18 03:19 Urine Clarity Cloudy (Clear) A 12/01/18 04:23 Urine Blood Moderate (Negative) H 12/01/18 04:23 Urine Nitrite Positive (Negative) A 12/01/18 04:23 Ur Leukocyte Esterase Large (Negative) H 12/01/18 04:23 Urine Microscopic WBC 3-5 per hpf (0-3) H 12/01/18 04:23 Ur Squamous Epith Cells Many per lpf (None-Few) H 12/01/18 04:23 Urine Bacteria Moderate per hpf (None-Few) H 12/01/18 04:23 E. coli (PCR) DETECTED (Not Detect) A 12/01/18 03:50 - Microbiology Findings Microbiology Findings: Microbiology, Last 48 Hours 12/02/18 07:08 Blood Culture - Final Peripheral Venipuncture No growth. Final report. 12/02/18 07:08 Blood Culture - Final Peripheral Venipuncture No growth. Final report. 12/01/18 08:11 Anaerobic Culture - Final Left Kidney No anaerobes were recovered. 12/01/18 08:11 Surgical Biopsy Culture - Preliminary Left Kidney Gram Positive Cocci Proteus mirabilis Escherichia coli - Clinical Findings Intake & Output: Intake & Output 12/07/18 12/08/18 12/08/18 23:59 07:59 15:59 Intake Total 664.2 / 2042.7 964.1 / 964.1 Output Total 2172 / 6587 2229 / 2531 302 / 2531 Balance -1507.8 / -4544.3 -1264.9 / -1566.9 -302 / -1566.9 Weight 126.2 kg 119.5 kg 119.5 kg Consult Discharge Plan - Plan Referrals: Kelly Cardozo, RN [Primary Care Provider] - - Attending Attestation I examined this patient and my medical decision-making was reviewed with the Resident Physician. I agree with the documented findings, disposition and treatment plan as described except to the extent set forth below. We independently had [id number] contact with the patient I spent 33min of Critical Care time with this patient. It involved decision making of high complexity to assess, manipulate, and support vital organ system failure and/or to prevent further life threatening deterioration of the patient's condition. The time involved in the performance of separately reportable procedures was not counted toward critical care time. Patient seen and examined at bedside Labs, radiology, chart personally reviewed. Management was reviewed during multidisciplinary critical care rounds. AUDIO VISUAL SECRETARY: We are lowering sedation she is now off propofol she is still minimally responsive and likely an effect of the sedation she does have occasional response to stimulus Pulm: remains on vent acceptable gas exchange and ventilator synchrony. Not a candidate for spontaneous breathing trial because of mental status Cards: She remains in cardiogenic shock from vasopressor heart rate better controlled now and we are weaning vasopressor there is also a component of hypotension likely from the use of continues renal replacement. Atrial fibrillation with RVR is better controlled now with volume removal decreasing atrial stretch GI: GI prophylaxis while on vent Nutrition: Enteral nutrition per dietary recommendations Renal: Remains on continuous renal replacement therapy continue to take fluids as tolerated . UOP Monitored, Cont to Trend sCr and monitor Electrolytes. ID: She is on broad-spectrum antibiotics however white count has increased will increase gram-positive coverage including MRSA until final speciation Heme/Onc: DVT prophylaxis given Endo: Glucose Monitored Integ/MSK: Skin Care per routine ICU Nursing Protocol to prevent ulcers. Lines: All lines examined without evidence of infection : Dispo: Critically ill CODE: DNAR full code <Narcisa Yip - Last Filed: 12/08/18 17:46> Date of Encounter: 12/08/18 Time of Encounter: 08:15 Assessment and Plan (1) Acute and chronic respiratory failure with hypoxia Current Visit: Yes Status: Acute Due to hemodynamic instability with septic stone Is having more oral secretion today WBC elevated from 12.7 to 20.2 today Chest x-ray shows unchanged pulmonary edema Currently intubated and sedated with Fentanyl and Precedex, weaned off propofol PH 7.42 PCO2 38 PaO2 72 and HCO3 25 Pt. does have hx of COPD and tobacco abuse -Klonopin for anxiety -Continue scheduled bronchodilators and Symbicort -Continue to monitor closely in the ICU -GI prophylaxis with daily Protonix IV (2) Sepsis Current Visit: Yes Status: Acute Likely secondary to urinary tract infection versus upper respiratory infection BCx x2 positive for Escherichia coli Serology PCR shows E. coli Wound cultures show E. coli, Proteus and gram-positive cocci currently growing --both sensitive to cefepime UCx show E. coli Dr. Alejandro placed subclavian central line due to poor access of IJ and femorals Dr. Salguero with stent placement 12/01 Likely secondary to septic stone with E. coli UTI WBC 20.2 from 12.7 yesterday and 30.8 on 12/01/18 -Urology recommends stone extraction after hemodynamic stability -Continue IV Cefepime day 8 -Continue to follow urine culture speciation for gram positive -Added vancomycin Qualifiers: Sepsis type: sepsis due to unspecified organism Qualified Code(s): A41.9 - Sepsis, unspecified organism (3) UTI (urinary tract infection) Current Visit: Yes Status: Acute E. coli PCR positive with Escherichia coli growing in urine Pt on Cefepime day 8 UCx show E. coli sensitive to cefepime Qualifiers: Urinary tract infection type: acute cystitis Hematuria presence: with hematuria Qualified Code(s): N30.01 - Acute cystitis with hematuria (4) Ureteral calculi Current Visit: Yes Status: Acute As seen on CT abd and pelvis Urology following and placed a stent on 12/01 Urology recommends stone extraction after hemodynamic stability (5) Acute kidney injury superimposed on CKD Current Visit: Yes Status: Acute Baseline Cre 1.1, this morning 1.01 Presented with creatinine of 2.4 on 12/01/18 Nephrology consulted -Continue to monitor and avoid nephrotoxic drugs -CRRT started 12/03 - electrolytes, BUN and creatinine stabilized -Significant output with CRRT (6) Diabetes mellitus Current Visit: Yes Status: Chronic Continue [id number] glucose check Continue sliding-scale insulin Qualifiers: Diabetes mellitus type: type 2 Diabetes mellitus group home insulin use: with continuous churn buttermaker use Diabetes mellitus complication status: with skin complications Diabetes mellitus complication detail: with foot ulcer Qualified Code(s): E11.621 - Type 2 diabetes mellitus with foot ulcer; L97.509 - Non-pressure chronic ulcer of other part of unspecified foot with unspecified severity; Z79.4 - [facility] (current) use of insulin (7) Atrial fibrillation Current Visit: Yes Status: Acute History of age of fibrillation presented with A. fib and RVR was on Cardizem drip Cardizem drip has been stopped Currently rate control at 77 Continue heparin drip Continue to monitor Qualifiers: Atrial fibrillation type: chronic Qualified Code(s): I48.2 - Chronic atrial fibrillation (8) DVT prophylaxis Current Visit: Yes Status: Acute Heparin drip Subjective Principal diagnosis: RANCHO Interval history: Ms. Rascon was seen at bedside this morning. Vitals were reviewed and she remained afebrile overnight. She is sedated and intubated. Cardizem drip and propofol drip has been stopped and her heart rate is within normal limits. 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) Extremities: no cyanosis, no edema non-focal exam, pupils equal and round Ventilator Settings Ventilator Settings: Ventilator Settings, Last 8 Hours Ventilator Tidal Volume 550 Setting Ventilator Tidal Volume 550 Setting Ventilator Tidal Volume 550 Setting Ventilator Tidal Volume 550 Setting Ventilator Tidal Volume 550 Setting Ventilator Tidal Volume 550 Setting Ventilator Tidal Volume 550 Setting Ventilator Tidal Volume 550 Setting Ventilator Tidal Volume 550 Setting Ventilator Tidal Volume 550 Setting Ventilator Tidal Volume 550 Setting Ventilator Tidal Volume 550 Setting Ventilator Respiratory Rate 14 Setting Ventilator Respiratory Rate 14 Setting Ventilator Respiratory Rate 14 Setting Ventilator Respiratory Rate 14 Setting Ventilator Respiratory Rate 14 Setting Ventilator Respiratory Rate 14 Setting Ventilator Respiratory Rate 14 Setting Ventilator Respiratory Rate 14 Setting Ventilator Respiratory Rate 14 Setting Ventilator Respiratory Rate 14 Setting Ventilator Respiratory Rate 14 Setting Ventilator Respiratory Rate 14 Setting Actual Respiratory Rate 14 Actual Respiratory Rate 15 Actual Respiratory Rate 15 Actual Respiratory Rate 19 Actual Respiratory Rate 16 Actual Respiratory Rate 16 Actual Respiratory Rate 14 Actual Respiratory Rate 16 Actual Respiratory Rate 17 Actual Respiratory Rate 15 Actual Respiratory Rate 15 Positive End Expiratory 5 Pressure Positive End Expiratory 5 Pressure Positive End Expiratory 5 Pressure Positive End Expiratory 5 Pressure Positive End Expiratory 5 Pressure Positive End Expiratory 5 Pressure Positive End Expiratory 5 Pressure Positive End Expiratory 5 Pressure Positive End Expiratory 5 Pressure Positive End Expiratory 5 Pressure Positive End Expiratory 5 Pressure Positive End Expiratory 5 Pressure Peak Inspiratory Airway 30 Pressure Peak Inspiratory Airway 31 Pressure Peak Inspiratory Airway 29 Pressure Peak Inspiratory Airway 28 Pressure Peak Inspiratory Airway 30 Pressure Peak Inspiratory Airway 34 Pressure Peak Inspiratory Airway 29 Pressure Peak Inspiratory Airway 30 Pressure Peak Inspiratory Airway 34 Pressure Peak Inspiratory Airway 31 Pressure Peak Inspiratory Airway 31 Pressure Results - Laboratory Findings CBC and BMP: 12/08/18 03:47 12/08/18 03:47 ABG ABG pH 7.42 pH Units (7.32-7.45) 12/08/18 04:53 ABG pCO2 38 mmHg (35-45) 12/08/18 04:53 ABG pO2 72 mmHg (85-104) L 12/08/18 04:53 ABG O2 Saturation 95 % (95-98) 12/08/18 04:53 PT/INR, D-dimer PT 13.7 Seconds (9.4-12.1) H 12/03/18 11:55 Abnormal lab findings: Abnormal lab results WBC 20.2 K/mcL (4.3-11.1) H D 12/08/18 03:47 Hct 45.3 % (35.3-44.9) H 12/01/18 03:19 MCHC 30.7 g/dL (31.6-35.5) L 12/08/18 03:47 RDW 17.2 % (11.5-14.5) H 12/08/18 03:47 Plt Count 130 K/mcL (140-400) L 12/06/18 03:20 Band Neutrophils % 8.0 % (0-4) H 12/08/18 03:47 Neutrophils # 15.0 K/mcL (1.6-8.9) H 12/08/18 03:47 Monocytes # 2.0 K/mcL (0.0-1.3) H 12/08/18 03:47 Eosinophils # 0.8 K/mcL (0.0-0.6) H 12/08/18 03:47 Nucleated RBCs/100 WBC 0.5 /100 WBC (0) H 12/08/18 03:47 Smudge Cells Present (Not Present) A 12/08/18 03:47 Platelet Estimate Slight Decrease (Normal) L 12/06/18 03:20 Large Platelets Present (Not Present) A 12/07/18 03:41 Immature Plt Fraction 12.9 % (1.1-6.1) H 12/07/18 03:41 Polychromasia 1+ (Not Present) A 12/08/18 03:47 Anisocytosis 1+ (Not Present) A 12/08/18 03:47 PT 13.7 Seconds (9.4-12.1) H 12/03/18 11:55 APTT 36.4 Seconds (26.0-36.0) H 12/01/18 03:19 Heparin Anti-Xa, Unfract 0.29 IU/mL (0.30-0.70) L 12/08/18 03:47 ABG pH 7.16 pH Units (7.32-7.45) L* 12/03/18 06:23 ABG pCO2 49 mmHg (35-45) H 12/06/18 04:57 ABG pO2 72 mmHg (85-104) L 12/08/18 04:53 ABG HCO3 28 mEq/L (21-27) H 12/05/18 04:22 ABG Total CO2 27 mEq/L (20-26) H 12/07/18 05:31 ABG O2 Saturation 90 % (95-98) L 12/07/18 05:31 ABG Base Excess -9 mEq/L (-2 to 3) L 12/03/18 06:23 Sodium 132 mEq/L (136-145) L 12/08/18 03:47 Chloride 111 mEq/L (98-107) H 12/02/18 04:21 Carbon Dioxide 19 mEq/L (23-29) L 12/03/18 04:00 BUN 28 mg/dL (8-23) H 12/04/18 04:27 Creatinine 1.26 mg/dL (0.60-1.20) H 12/05/18 03:40 Est GFR ( Amer) 56 (> 60) L 12/06/18 03:20 Est GFR (Non-Af Amer) 55 (> 60) L 12/08/18 03:47 Glucose 192 mg/dL (70-105) H 12/08/18 03:47 POC Glucose 151 mg/dL (70-99) H 12/07/18 23:28 Hemoglobin A1c 8.6 % (-5.6) H 12/01/18 03:19 Calculated Osmolality 278 (280-300) L 12/08/18 03:47 Calcium 7.7 mg/dL (8.6-10.3) L 12/08/18 03:47 Phosphorus 2.6 mg/dL (2.7-4.5) L 12/06/18 03:20 Magnesium 1.4 mg/dL (1.6-2.6) L 12/02/18 04:21 Serum Total Protein 6.1 g/dL (6.4-8.9) L 12/01/18 03:19 Albumin 3.3 g/dL (3.5-5.7) L 12/01/18 03:19 Prealbumin 3.4 mg/dL (17.0-34.0) L 12/03/18 04:00 HDL Cholesterol 22 mg/dL (40-59) L 12/01/18 03:19 Urine Clarity Cloudy (Clear) A 12/01/18 04:23 Urine Blood Moderate (Negative) H 12/01/18 04:23 Urine Nitrite Positive (Negative) A 12/01/18 04:23 Ur Leukocyte Esterase Large (Negative) H 12/01/18 04:23 Urine Microscopic WBC 3-5 per hpf (0-3) H 12/01/18 04:23 Ur Squamous Epith Cells Many per lpf (None-Few) H 12/01/18 04:23 Urine Bacteria Moderate per hpf (None-Few) H 12/01/18 04:23 E. coli (PCR) DETECTED (Not Detect) A 12/01/18 03:50 - Microbiology Findings Microbiology Findings: Microbiology, Last 48 Hours 12/02/18 07:08 Blood Culture - Final Peripheral Venipuncture No growth. Final report. 12/02/18 07:08 Blood Culture - Final Peripheral Venipuncture No growth. Final report. 12/01/18 08:11 Anaerobic Culture - Final Left Kidney No anaerobes were recovered. 12/01/18 08:11 Surgical Biopsy Culture - Preliminary Left Kidney Gram Positive Cocci Proteus mirabilis Escherichia coli - Clinical Findings Intake & Output: Intake & Output 12/07/18 12/08/18 12/08/18 23:59 07:59 15:59 Intake Total 664.2 / 2042.7 964.1 / 964.1 Output Total 2172 / 6587 2229 / 2229 Balance -1507.8 / -4544.3 -1264.9 / -1264.9 Weight 126.2 kg 119.5 kg
[2018-12-08] MEDS: clonazePAM 0.5 MG TABLET PO SCH ×3 (08:48→19:52)
[2018-12-08] MEDS: Docusate Oral Soln 100 MG/10 ML UDC PO SCH ×2 (08:48→19:52)
[2018-12-08] MEDS: *HR* Amiodarone 200 MG TABLET PO SCH (08:48)
[2018-12-08] MEDS: Pantoprazole 40 MG VIAL IVP SCH (08:49)
[2018-12-08] MEDS: Cefepime HCl 1,000 MG in Water for inj. (sterile) 10 ML IVP SCH ×3 (08:49→23:20)
[2018-12-08] MEDS: Chlorhexidine Rinse 15 ML MOUTHWASH MM SCH ×2 (08:49→19:52)
[2018-12-08] MEDS: Budesonide/Formoterol 160/4.5 1 PUFF INH IH SCH ×2 (09:13→21:44)
[2018-12-08] MEDS ORDERED: Vancomycin 1,750 MG in 0.9 % Sodium Chloride 250 ML IVPB SCH (12:00)
[2018-12-08] MEDS ORDERED: *HR* Heparin 5,000 UNIT/ML VIAL ONE (22:29)
--- NOTE | 2018-12-08 23:31 | Nephrology Progress Note ---
Date of Encounter: 12/08/18 Time of Encounter: 12:00 - Assessment and Plan (1) Acute and chronic respiratory failure with hypoxia Current Visit: Yes Status: Acute Vent management per primary team (2) Acute kidney injury superimposed on CKD Current Visit: Yes Status: Acute Continue CVVHDF as prescribed but decrease UF at 50cc/hr with goal of tapering pressor support Continue to limit obligate fluids if possible Continue to avoid nephrotoxins if possible UOP remains poor hence no signs of renal recovery yet (3) Sepsis Current Visit: Yes Status: Acute Antibiotics as per primary with renal dosing. Qualifiers: Sepsis type: sepsis due to unspecified organism Qualified Code(s): A41.9 - Sepsis, unspecified organism (4) Hydronephrosis Current Visit: Yes Status: Acute per urology, previously seen Qualifiers: Hydronephrosis type: with ureteral calculous obstruction Qualified Code(s): N13.2 - Hydronephrosis with renal and ureteral calculous obstruction Subjective Principal diagnosis: RANCHO Interval history: Pt seen and examined remains intubated on CRRT, doing well per nurse but still on pressor support. Objective - Vital Signs Vital signs: Vital Signs Temp Pulse Resp BP Pulse Ox 12/08/18 23:25 15 97 12/08/18 23:00 67 14 91/45 97 12/08/18 22:00 78 14 91/52 99 12/08/18 21:45 14 99 12/08/18 21:00 85 14 101/61 100 12/08/18 20:00 97.8 F 79 14 99/48 100 12/08/18 19:42 15 100 12/08/18 19:00 69 16 100/57 100 12/08/18 18:00 84 19 136/78 99 12/08/18 17:30 16 129/85 100 12/08/18 17:00 68 15 95/61 98 12/08/18 16:00 98.4 F 75 15 91/64 97 12/08/18 15:15 19 99 12/08/18 15:00 71 15 92/56 97 12/08/18 14:00 71 15 92/59 96 12/08/18 13:18 16 96 12/08/18 13:00 68 15 101/63 96 12/08/18 12:00 98.0 F 72 18 108/64 98 12/08/18 11:27 14 136/54 100 12/08/18 11:00 72 15 125/51 100 12/08/18 10:00 75 14 121/50 99 12/08/18 09:13 15 97 12/08/18 09:00 71 17 103/50 97 12/08/18 08:00 98.9 F 73 14 108/58 97 12/08/18 07:47 14 96 12/08/18 07:00 77 15 106/55 97 12/08/18 06:00 79 15 111/47 95 12/08/18 05:34 19 109/43 97 12/08/18 05:00 71 16 106/46 96 12/08/18 04:00 98.7 F 73 16 101/43 97 12/08/18 03:35 72 12/08/18 03:33 14 99/45 97 12/08/18 03:00 76 16 102/48 96 12/08/18 02:00 70 17 99/49 96 12/08/18 01:40 17 101/44 96 12/08/18 01:00 75 15 95/53 95 12/08/18 00:00 97.9 F 74 16 101/49 94 12/07/18 23:53 17 97/43 94 12/07/18 23:40 75 Intake and Output 12/08/18 12/08/18 12/08/18 07:59 15:59 23:59 Intake Total 964.1 / 2710.5 1219.8 / 2710.5 526.6 / 2710.5 Output Total 2229 / 5270 2053 / 5270 988 / 5270 Balance -1264.9 / -2559.5 -833.2 / -2559.5 -461.4 / -2559.5 Intake: IV Fluids 964.1 / 2487.5 1144.8 / 2487.5 378.6 / 2487.5 PrismaSATE BGK 4/2.5 5,000 ML @ 0 / 0 0 / 0 0 / 0 1000 mls/hr CRRT [facility] Rx#: [id number] Precedex Premix 400 mcg In 100 122 / 297.1 143 / 297.1 32.1 / 297.1 ml @ 0.2 MCG/KG/HR 6.31 mls/hr IVC .[id number] [facility] Rx#:[id number] FentaNYL (PF) 1,000 MCG In 0.9 120.3 / 206.0 61.7 / 206.0 24 / 206.0 % Sodium Chloride 80 ML @ 50 MCG/HR 5 mls/hr IVC CONT [facility] Rx #:[id number] Heparin 25,000 UNIT/250 ML D5W 277.8 / 500.0 222.2 / 500.0 25,000 unit In 250 ml @ 14 UNIT /KG/HR 15.414 mls/hr IVC . [id number] [facility] Rx#:[id number] Levophed 4 MG In Dextrose 5% 49.7 / 70.0 20.3 / 70.0 250 ML @ 8 MCG/MIN 30.48 mls/hr IVC CONT [facility] Rx#:[id number] Phenylephrine 50 MG In Dextrose 330.2 / 830.3 409.8 / 830.3 90.3 / 830.3 5% 250 ML @ 100 MCG/MIN 30.6 mls/hr IVC CONT [facility] Rx#: [id number] Diprivan 1,000 mg In 100 ml @ 5 64.1 / 64.1 0 / 64.1 MCG/KG/MIN 3.786 mls/hr IVC . Q24H [facility] Rx#:[id number] Maxipime 1,000 MG In Water for inj. (sterile) 10 ML @ 300 mls/ hr IVP Q8HR [facility] Rx#:[id number] Vancocin 1,750 MG In 0.9 % 500 / 500 Sodium Chloride 500 ML @ 333.3 mls/hr IVPB ONCE ONE Rx#: [id number] Tube Feeding 148 / 148 Free Water Intake Amount 75 / 75 Output: Catheter 49 / 144 33 / 144 62 / 144 Gastric Drainage 50 / 400 350 / 400 Fluid Removed by Prismaflex 2130 / 4726 1670 / 4726 926 / 4726 Other: Weight 119.5 kg 119.5 kg 119.5 kg Blood Glucose* 162 166 159 Patient Weight 12/08/18 23:59 Weight 119.5 kg - General Appearance General appearance: Present: sedated on ventilator, intubated EENT: Present: ATNC, mucous membranes moist Neck: Present: no JVD, supple Respiratory: Present: course breath sounds Cardiology: Present: edema (LE bilat, improving, L TMA, R BKA), normal S1, normal S2 Dialysis Vascular Access: Venous Catheter (temp line) Gastrointestinal: Present: no tenderness, no guarding, obese Integumentary: Present: warm and dry, chronic venous stasis Additional Comments: sedated Musculoskeletal: Present: no deformities Additional Comments: sedated - Lab 12/08/18 03:47 12/08/18 03:47 Consult Discharge Plan - Plan Referrals: Kelly Cardozo RN [Primary Care Provider] -
[2018-12-09] MEDS: Insulin LISPRO 300 UNITS/3 ML VIAL SQ SCH ×6 (03:19→23:18)
[2018-12-09] MEDS: Artificial Tears SOLN 15 ML BOTTLE BOTH EYES SCH ×6 (03:19→23:18)
[2018-12-09] MEDS: Levalbuterol Neb 1.25 MG/3 ML IH SCH ×4 (03:32→21:34)
[2018-12-09 03:48] LABS: Eosinophils # 0.3 K/mcL (0.0-0.6); Hematocrit 36.3 % (35.3-44.9); Hemoglobin 11.2 g/dL (11.5-15.4); Lymphocytes # 1.2 K/mcL (0.6-4.6); Mean Corpuscular HGB Conc 30.9 g/dL (31.6-35.5); Mean Corpuscular Hemoglobin 28.8 pg (28.0-33.3); Mean Corpuscular Volume 93.3 fL (83.0-100.0); Nucleated Red Blood Cells 0.5 /100 WBC (0); Platelet Count 133 K/mcL (140-400); Red Blood Count 3.89 M/mcL (3.82-4.97); Red Cell Distribution Width 18.3 % (11.5-14.5); White Blood Count 15.5 K/mcL (4.3-11.1)
[2018-12-09 04:10] LABS: Albumin 2.3 g/dL (3.5-5.7); Albumin/Globulin Ratio 0.7 (1.1-2.2); BUN/Creatinine Ratio 9 (6-26); Bilirubin,Direct 0.6 mg/dL (0.0-0.2); Bilirubin,Indirect 0.5 mg/dL (0.0-1.2); Bilirubin,Total 1.1 mg/dL (0.3-1.0); Blood Urea Nitrogen 9 mg/dL (8-23); Calcium 7.6 mg/dL (8.6-10.3); Carbon Dioxide 25 mEq/L (23-29); Chloride 102 mEq/L (98-107); Globulin 3.2 g/dL (2.4-3.5); Glucose 172 mg/dL (70-105); Osmolality,Calculated 279 (280-300); Potassium 3.9 mEq/L (3.5-5.1); Sodium 133 mEq/L (136-145); Total Protein 5.5 g/dL (6.4-8.9); eGFR For African Americans > 60 (> 60); eGFR For Non-African Americans 54 (> 60)
[2018-12-09 04:39] LABS: ABG Base Excess 1 mEq/L (-2 to 3); ABG HCO3 26 mEq/L (21-27); ABG Oxygen Saturation 94 % (95-98); ABG PCO2 39 mmHg (35-45); ABG PH 7.43 pH Units (7.32-7.45); ABG PO2 69 mmHg (85-104); ABG TCO2 27 mEq/L (20-26); Blood Gas Modality ASSIST CONTROL; Blood Gas PEEP 5 cm H2O; Blood Gas VT 550 cc
[2018-12-09 04:48] LABS: Monocytes # 0.6 K/mcL (0.0-1.3); Neutrophils # 11.8 K/mcL (1.6-8.9); Platelet Estimate Slight Decrease (Normal)
[2018-12-09 04:49] LABS: Anisocytosis 1+ (Not Present); Hypochromasia Present (Not Present); Polychromasia 1+ (Not Present)
[2018-12-09] MEDS: PrismaSATE BGK 4/2.5 5,000 ML CRRT SCH ×8 (05:35→19:35)
[2018-12-09] MEDS: FentaNYL (PF) 1,000 MCG in 0.9 % Sodium Chloride 80 ML IVC SCH ×2 (06:12→22:28)
[2018-12-09] MEDS: Heparin 25,000 UNIT/250 ML D5W 25,000 UNIT/250 ML IV.SOLN IVC SCH ×2 (08:00→21:44)
[2018-12-09] MEDS: Dexmedetomidine HCl 400 MCG/100 ML MLS IVC SCH ×2 (08:01→15:54)
[2018-12-09] MEDS: Pantoprazole 40 MG VIAL IVP SCH (08:02)
[2018-12-09] MEDS: *HR* Amiodarone 200 MG TABLET PO SCH (08:02)
[2018-12-09] MEDS: clonazePAM 0.5 MG TABLET PO SCH (08:02)
[2018-12-09] MEDS: Docusate Oral Soln 100 MG/10 ML UDC PO SCH ×2 (08:02→19:42)
[2018-12-09] MEDS: Chlorhexidine Rinse 15 ML MOUTHWASH MM SCH ×2 (08:02→19:42)
[2018-12-09] MEDS: Cefepime HCl 1,000 MG in Water for inj. (sterile) 10 ML IVP SCH ×3 (08:02→23:20)
--- NOTE | 2018-12-09 08:51 | Pulmonology Progress Note ---
<PaulaGerman W - Last Filed: 12/09/18 10:03> Date of Encounter: 12/09/18 Objective PUL Vital signs: Last Vital Signs Temp 99.5 F 12/09/18 09:00 Pulse 91 12/09/18 09:00 Resp 17 12/09/18 09:00 BP 82/45 12/09/18 09:00 Pulse Ox 100 12/09/18 09:00 Ventilator Settings Ventilator Settings: Ventilator Settings, Last 8 Hours Ventilator Tidal Volume 550 Setting Ventilator Tidal Volume 550 Setting Ventilator Tidal Volume 550 Setting Ventilator Tidal Volume 550 Setting Ventilator Tidal Volume 550 Setting Ventilator Tidal Volume 550 Setting Ventilator Tidal Volume 550 Setting Ventilator Tidal Volume 550 Setting Ventilator Tidal Volume 550 Setting Ventilator Tidal Volume 550 Setting Ventilator Tidal Volume 550 Setting Ventilator Respiratory Rate 14 Setting Ventilator Respiratory Rate 14 Setting Ventilator Respiratory Rate 14 Setting Ventilator Respiratory Rate 14 Setting Ventilator Respiratory Rate 14 Setting Ventilator Respiratory Rate 14 Setting Ventilator Respiratory Rate 14 Setting Ventilator Respiratory Rate 14 Setting Ventilator Respiratory Rate 14 Setting Ventilator Respiratory Rate 14 Setting Ventilator Respiratory Rate 14 Setting Actual Respiratory Rate 17 Actual Respiratory Rate 14 Actual Respiratory Rate 21 Actual Respiratory Rate 15 Actual Respiratory Rate 15 Actual Respiratory Rate 16 Actual Respiratory Rate 14 Actual Respiratory Rate 14 Actual Respiratory Rate 14 Actual Respiratory Rate 14 Positive End Expiratory 5 Pressure Positive End Expiratory 5 Pressure Positive End Expiratory 5 Pressure Positive End Expiratory 5 Pressure Positive End Expiratory 5 Pressure Positive End Expiratory 5 Pressure Positive End Expiratory 5 Pressure Positive End Expiratory 5 Pressure Positive End Expiratory 5 Pressure Positive End Expiratory 5 Pressure Positive End Expiratory 5 Pressure Peak Inspiratory Airway 33 Pressure Peak Inspiratory Airway 33 Pressure Peak Inspiratory Airway 32 Pressure Peak Inspiratory Airway 31 Pressure Peak Inspiratory Airway 32 Pressure Peak Inspiratory Airway 31 Pressure Peak Inspiratory Airway 30 Pressure Peak Inspiratory Airway 29 Pressure Peak Inspiratory Airway 32 Pressure Peak Inspiratory Airway 34 Pressure Results - Laboratory Findings CBC and BMP: 12/09/18 03:39 12/09/18 03:39 ABG ABG pH 7.43 pH Units (7.32-7.45) 12/09/18 04:36 ABG pCO2 39 mmHg (35-45) 12/09/18 04:36 ABG pO2 69 mmHg (85-104) L 12/09/18 04:36 ABG O2 Saturation 94 % (95-98) L 12/09/18 04:36 PT/INR, D-dimer PT 13.7 Seconds (9.4-12.1) H 12/03/18 11:55 Abnormal lab findings: Abnormal lab results WBC 15.5 K/mcL (4.3-11.1) H 12/09/18 03:39 Hgb 11.2 g/dL (11.5-15.4) L 12/09/18 03:39 Hct 45.3 % (35.3-44.9) H 12/01/18 03:19 MCHC 30.9 g/dL (31.6-35.5) L 12/09/18 03:39 RDW 18.3 % (11.5-14.5) H 12/09/18 03:39 Plt Count 133 K/mcL (140-400) L 12/09/18 03:39 Band Neutrophils % 16.0 % (0-4) H 12/09/18 03:39 Metamyelocytes % 8.0 % (0) H 12/09/18 03:39 Myelocytes % 2.0 % (0) H 12/09/18 03:39 Neutrophils # 11.8 K/mcL (1.6-8.9) H 12/09/18 03:39 Monocytes # 2.0 K/mcL (0.0-1.3) H 12/08/18 03:47 Eosinophils # 0.8 K/mcL (0.0-0.6) H 12/08/18 03:47 Nucleated RBCs/100 WBC 0.5 /100 WBC (0) H 12/09/18 03:39 Smudge Cells Present (Not Present) A 12/08/18 03:47 Platelet Estimate Slight Decrease (Normal) L 12/09/18 03:39 Large Platelets Present (Not Present) A 12/07/18 03:41 Immature Plt Fraction 12.9 % (1.1-6.1) H 12/07/18 03:41 Polychromasia 1+ (Not Present) A 12/09/18 03:39 Hypochromasia Present (Not Present) A 12/09/18 03:39 Anisocytosis 1+ (Not Present) A 12/09/18 03:39 PT 13.7 Seconds (9.4-12.1) H 12/03/18 11:55 APTT 36.4 Seconds (26.0-36.0) H 12/01/18 03:19 Heparin Anti-Xa, Unfract 0.29 IU/mL (0.30-0.70) L 12/08/18 03:47 ABG pH 7.16 pH Units (7.32-7.45) L* 12/03/18 06:23 ABG pCO2 49 mmHg (35-45) H 12/06/18 04:57 ABG pO2 69 mmHg (85-104) L 12/09/18 04:36 ABG HCO3 28 mEq/L (21-27) H 12/05/18 04:22 ABG Total CO2 27 mEq/L (20-26) H 12/09/18 04:36 ABG O2 Saturation 94 % (95-98) L 12/09/18 04:36 ABG Base Excess -9 mEq/L (-2 to 3) L 12/03/18 06:23 Sodium 133 mEq/L (136-145) L 12/09/18 03:39 Chloride 111 mEq/L (98-107) H 12/02/18 04:21 Carbon Dioxide 19 mEq/L (23-29) L 12/03/18 04:00 BUN 28 mg/dL (8-23) H 12/04/18 04:27 Creatinine 1.26 mg/dL (0.60-1.20) H 12/05/18 03:40 Est GFR ( Amer) 56 (> 60) L 12/06/18 03:20 Est GFR (Non-Af Amer) 54 (> 60) L 12/09/18 03:39 Glucose 172 mg/dL (70-105) H 12/09/18 03:39 POC Glucose 152 mg/dL (70-99) H 12/08/18 23:20 Hemoglobin A1c 8.6 % (-5.6) H 12/01/18 03:19 Calculated Osmolality 279 (280-300) L 12/09/18 03:39 Calcium 7.6 mg/dL (8.6-10.3) L 12/09/18 03:39 Phosphorus 2.6 mg/dL (2.7-4.5) L 12/06/18 03:20 Magnesium 1.4 mg/dL (1.6-2.6) L 12/02/18 04:21 Total Bilirubin 1.1 mg/dL (0.3-1.0) H 12/09/18 03:39 Direct Bilirubin 0.6 mg/dL (0.0-0.2) H 12/09/18 03:39 Serum Total Protein 5.5 g/dL (6.4-8.9) L 12/09/18 03:39 Albumin 2.3 g/dL (3.5-5.7) L 12/09/18 03:39 Albumin/Globulin Ratio 0.7 (1.1-2.2) L 12/09/18 03:39 Prealbumin 3.4 mg/dL (17.0-34.0) L 12/03/18 04:00 HDL Cholesterol 22 mg/dL (40-59) L 12/01/18 03:19 Urine Clarity Cloudy (Clear) A 12/01/18 04:23 Urine Blood Moderate (Negative) H 12/01/18 04:23 Urine Nitrite Positive (Negative) A 12/01/18 04:23 Ur Leukocyte Esterase Large (Negative) H 12/01/18 04:23 Urine Microscopic WBC 3-5 per hpf (0-3) H 12/01/18 04:23 Ur Squamous Epith Cells Many per lpf (None-Few) H 12/01/18 04:23 Urine Bacteria Moderate per hpf (None-Few) H 12/01/18 04:23 E. coli (PCR) DETECTED (Not Detect) A 12/01/18 03:50 - Microbiology Findings Microbiology Findings: Microbiology, Last 48 Hours 12/08/18 12:15 Sputum Culture - Preliminary Sputum 12/02/18 07:08 Blood Culture - Final Peripheral Venipuncture No growth. Final report. 12/02/18 07:08 Blood Culture - Final Peripheral Venipuncture No growth. Final report. - Clinical Findings Intake & Output: Intake & Output 12/08/18 12/09/18 12/09/18 23:59 07:59 15:59 Intake Total 741.8 / 2936.7 744.8 / 870.8 126.0 / 870.8 Output Total 988 / 5347 528 / 890 362 / 890 Balance -246.2 / -2410.3 216.8 / -19.2 -236.0 / -19.2 Weight 119.5 kg 117.4 kg 117.4 kg Consult Discharge Plan - Plan Referrals: Kelly Cardozo, RN [Primary Care Provider] - - Attending Attestation I examined this patient and my medical decision-making was reviewed with the Resident Physician. I agree with the documented findings, disposition and treatment plan as described except to the extent set forth below. We independently had [id number] contact with the patient I spent 34min of Critical Care time with this patient. It involved decision making of high complexity to assess, manipulate, and support vital organ system failure and/or to prevent further life threatening deterioration of the patient's condition. The time involved in the performance of separately repor table procedures was not counted toward critical care time. Patient seen and examined at bedside Labs, radiology, chart personally reviewed. Management was reviewed during multidisciplinary critical care rounds. PHARMACOVIGILANCE SAFETY EXPERT:remains delirious with significant agitation off of sedation will cont precedex and stop benzo cont fentanyl daily sedation holiday. Pulm: Acute hypoxic respiratory failure remains on vent with acceptable gas exchange. not candidate for SBT today because of cardiac status and encephalopa thy Cards: Afib with RVR again overnight requiring diltiazem gtt with phenylephrine. start PO BB to maiintenace of rate. wean vaso pressor as tolerated. volume re moval for CHF with [employer] GI: Gi prophylaxis given Nutrition: Cont enternal nutrition add bowel regimen Renal: Remains on CRRT for RANCHO. UOP Monitored, Cont to Trend sCr and monitor Electrolytes. ID:. Sepsis on ABx cont vanc/Cefepime wbc a little better Heme/Onc: Heparin Gtt plts hgb stable. Endo: Glucose Monitored Integ/MSK: Skin Care per routine ICU Nursing Protocol to prevent ulcers. Lines: All lines examined without evidence of infection : Dispo: remain in ICU for critical illness CODE: Full Code plan for [place] [facility]. <Narcisa Yip - Last Filed: 12/09/18 14:40> Date of Encounter: 12/09/18 Time of Encounter: 08:50 Assessment and Plan (1) Acute and chronic respiratory failure with hypoxia Current Visit: Yes Status: Acute Due to hemodynamic instability with septic stone Is having more oral secretion today WBC improved from 20.2 to 15.5 Chest x-ray shows unchanged pulmonary edema Currently intubated and sedated with Fentanyl and Precedex, weaned off propofol PH 7.43 PCO2 39 PaO2 69 and HCO3 27 Pt. does have hx of COPD and tobacco abuse -Stopped Klonopin -Continue scheduled bronchodilators and Symbicort -Continue to monitor closely in the ICU -GI prophylaxis with daily Protonix IV -Continue to titrate down sedation (2) Sepsis Current Visit: Yes Status: Acute Likely secondary to urinary tract infection versus upper respiratory infection BCx x2 positive for Escherichia coli Serology PCR shows E. coli Wound cultures show E. coli, Proteus and gram-positive cocci currently growing --both sensitive to cefepime UCx show E. coli Dr. Alejandro placed subclavian central line due to poor access of IJ and femorals Dr. Salguero placed left ureteral stent on 12/01 Likely secondary to septic stone with E. coli UTI -Urology recommends stone extraction after hemodynamic stability -Continue IV Cefepime day 9 -Continue to follow urine culture speciation for gram positive cocci, continue vancomycin day 2 of 10 Qualifiers: Sepsis type: sepsis due to unspecified organism Qualified Code(s): A41.9 - Sepsis, unspecified organism (3) UTI (urinary tract infection) Current Visit: Yes Status: Acute E. coli PCR positive with Escherichia coli growing in urine Pt on Cefepime day 9 UCx show E. coli sensitive to cefepime Addition we will continue vancomycin due to gram-positive cocci seen in urinalysis Qualifiers: Urinary tract infection type: acute cystitis Hematuria presence: with hematuria Qualified Code(s): N30.01 - Acute cystitis with hematuria (4) Ureteral calculi Current Visit: Yes Status: Acute As seen on CT abd and pelvis Urology following and placed a stent on 12/01 Urology recommends stone extraction after hemodynamic stability (5) Acute kidney injury superimposed on CKD Current Visit: Yes Status: Acute Baseline Creatinine 1.1, this morning 1.03 Presented with creatinine of 2.4 on 12/01/18 -Continue to monitor and avoid nephrotoxic drugs -CRRT started 12/03 - electrolytes, BUN and creatinine stabilized, ongoing CRRT, continues to have poor urine output -Significant output with CRRT, yesterday 2342 -Nephrology consulted (6) Diabetes mellitus Current Visit: Yes Status: Chronic Continue [id number]-va-[id number] glucose check Continue sliding-scale insulin Qualifiers: Diabetes mellitus type: type 2 Diabetes mellitus custodial insulin use: with custodial use Diabetes mellitus complication status: with skin complications Diabetes mellitus complication detail: with foot ulcer Qualified Code(s): E11.621 - Type 2 diabetes mellitus with foot ulcer; L97.509 - Non-pressure chronic ulcer of other part of unspecified foot with unspecified severity; 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 fib and RVR was on Cardizem drip Cardizem drip has been stopped Switched to by mouth metoprolol 75 mg twice a day with heart rate in the high 60s this afternoon Continues to monitor heart rate and blood pressure to titrate down vasopressor Qualifiers: Atrial fibrillation type: chronic Qualified Code(s): I48.2 - Chronic atrial fibrillation (8) DVT prophylaxis Current Visit: Yes Status: Acute Heparin drip Subjective Principal diagnosis: RANCHO Interval history: Ms. Rascon was seen at bedside this morning. Vitals were reviewed and she remained afebrile overnight. She is sedated and intubated. Her heart rate was elevated this morning and was restarted on Cardizem. Additionally due to recent Cardizem her blood pressure decreased and phenylephrine drip has been increased. Objective PUL Vital signs: Last Vital Signs Temp 99.1 F 12/09/18 08:00 Pulse 93 12/09/18 08:00 Resp 14 12/09/18 08:00 BP 102/58 12/09/18 08:00 Pulse Ox 100 12/09/18 08:00 General appearance: no acute distress Eyes: nonicteric ENT: oropharynx moist Neck: supple Auscultation: bilateral: diminished breath sounds Cardiovascular: irregular rhythm, other (tachycardia) Gastrointestinal: normoactive bowel sounds, soft, non-tender Integumentary: normal Extremities: no cyanosis, no edema Musculoskeletal: no deformities Gait: normal posture pupils equal and round, other Ventilator Settings Ventilator Settings: Ventilator Settings, Last 8 Hours Ventilator Tidal Volume 550 Setting Ventilator Tidal Volume 550 Setting Ventilator Tidal Volume 550 Setting Ventilator Tidal Volume 550 Setting Ventilator Tidal Volume 550 Setting Ventilator Tidal Volume 550 Setting Ventilator Tidal Volume 550 Setting Ventilator Tidal Volume 550 Setting Ventilator Tidal Volume 550 Setting Ventilator Tidal Volume 550 Setting Ventilator Tidal Volume 550 Setting Ventilator Tidal Volume 550 Setting Ventilator Respiratory Rate 14 Setting Ventilator Respiratory Rate 14 Setting Ventilator Respiratory Rate 14 Setting Ventilator Respiratory Rate 14 Setting Ventilator Respiratory Rate 14 Setting Ventilator Respiratory Rate 14 Setting Ventilator Respiratory Rate 14 Setting Ventilator Respiratory Rate 14 Setting Ventilator Respiratory Rate 14 Setting Ventilator Respiratory Rate 14 Setting Ventilator Respiratory Rate 14 Setting Ventilator Respiratory Rate 14 Setting Actual Respiratory Rate 14 Actual Respiratory Rate 21 Actual Respiratory Rate 15 Actual Respiratory Rate 15 Actual Respiratory Rate 16 Actual Respiratory Rate 14 Actual Respiratory Rate 14 Actual Respiratory Rate 14 Actual Respiratory Rate 14 Actual Respiratory Rate 14 Actual Respiratory Rate 15 Positive End Expiratory 5 Pressure Positive End Expiratory 5 Pressure Positive End Expiratory 5 Pressure Positive End Expiratory 5 Pressure Positive End Expiratory 5 Pressure Positive End Expiratory 5 Pressure Positive End Expiratory 5 Pressure Positive End Expiratory 5 Pressure Positive End Expiratory 5 Pressure Positive End Expiratory 5 Pressure Positive End Expiratory 5 Pressure Positive End Expiratory 5 Pressure Peak Inspiratory Airway 33 Pressure Peak Inspiratory Airway 32 Pressure Peak Inspiratory Airway 31 Pressure Peak Inspiratory Airway 32 Pressure Peak Inspiratory Airway 31 Pressure Peak Inspiratory Airway 30 Pressure Peak Inspiratory Airway 29 Pressure Peak Inspiratory Airway 32 Pressure Peak Inspiratory Airway 34 Pressure Peak Inspiratory Airway 34 Pressure Results - Laboratory Findings CBC and BMP: 12/09/18 03:39 12/09/18 03:39 ABG ABG pH 7.43 pH Units (7.32-7.45) 12/09/18 04:36 ABG pCO2 39 mmHg (35-45) 12/09/18 04:36 ABG pO2 69 mmHg (85-104) L 12/09/18 04:36 ABG O2 Saturation 94 % (95-98) L 12/09/18 04:36 PT/INR, D-dimer PT 13.7 Seconds (9.4-12.1) H 12/03/18 11:55 Abnormal lab findings: Abnormal lab results WBC 15.5 K/mcL (4.3-11.1) H 12/09/18 03:39 Hgb 11.2 g/dL (11.5-15.4) L 12/09/18 03:39 Hct 45.3 % (35.3-44.9) H 12/01/18 03:19 MCHC 30.9 g/dL (31.6-35.5) L 12/09/18 03:39 RDW 18.3 % (11.5-14.5) H 12/09/18 03:39 Plt Count 133 K/mcL (140-400) L 12/09/18 03:39 Band Neutrophils % 16.0 % (0-4) H 12/09/18 03:39 Metamyelocytes % 8.0 % (0) H 12/09/18 03:39 Myelocytes % 2.0 % (0) H 12/09/18 03:39 Neutrophils # 11.8 K/mcL (1.6-8.9) H 12/09/18 03:39 Monocytes # 2.0 K/mcL (0.0-1.3) H 12/08/18 03:47 Eosinophils # 0.8 K/mcL (0.0-0.6) H 12/08/18 03:47 Nucleated RBCs/100 WBC 0.5 /100 WBC (0) H 12/09/18 03:39 Smudge Cells Present (Not Present) A 12/08/18 03:47 Platelet Estimate Slight Decrease (Normal) L 12/09/18 03:39 Large Platelets Present (Not Present) A 12/07/18 03:41 Immature Plt Fraction 12.9 % (1.1-6.1) H 12/07/18 03:41 Polychromasia 1+ (Not Present) A 12/09/18 03:39 Hypochromasia Present (Not Present) A 12/09/18 03:39 Anisocytosis 1+ (Not Present) A 12/09/18 03:39 PT 13.7 Seconds (9.4-12.1) H 12/03/18 11:55 APTT 36.4 Seconds (26.0-36.0) H 12/01/18 03:19 Heparin Anti-Xa, Unfract 0.29 IU/mL (0.30-0.70) L 12/08/18 03:47 ABG pH 7.16 pH Units (7.32-7.45) L* 12/03/18 06:23 ABG pCO2 49 mmHg (35-45) H 12/06/18 04:57 ABG pO2 69 mmHg (85-104) L 12/09/18 04:36 ABG HCO3 28 mEq/L (21-27) H 12/05/18 04:22 ABG Total CO2 27 mEq/L (20-26) H 12/09/18 04:36 ABG O2 Saturation 94 % (95-98) L 12/09/18 04:36 ABG Base Excess -9 mEq/L (-2 to 3) L 12/03/18 06:23 Sodium 133 mEq/L (136-145) L 12/09/18 03:39 Chloride 111 mEq/L (98-107) H 12/02/18 04:21 Carbon Dioxide 19 mEq/L (23-29) L 12/03/18 04:00 BUN 28 mg/dL (8-23) H 12/04/18 04:27 Creatinine 1.26 mg/dL (0.60-1.20) H 12/05/18 03:40 Est GFR ( Amer) 56 (> 60) L 12/06/18 03:20 Est GFR (Non-Af Amer) 54 (> 60) L 12/09/18 03:39 Glucose 172 mg/dL (70-105) H 12/09/18 03:39 POC Glucose 152 mg/dL (70-99) H 12/08/18 23:20 Hemoglobin A1c 8.6 % (-5.6) H 12/01/18 03:19 Calculated Osmolality 279 (280-300) L 12/09/18 03:39 Calcium 7.6 mg/dL (8.6-10.3) L 12/09/18 03:39 Phosphorus 2.6 mg/dL (2.7-4.5) L 12/06/18 03:20 Magnesium 1.4 mg/dL (1.6-2.6) L 12/02/18 04:21 Total Bilirubin 1.1 mg/dL (0.3-1.0) H 12/09/18 03:39 Direct Bilirubin 0.6 mg/dL (0.0-0.2) H 12/09/18 03:39 Serum Total Protein 5.5 g/dL (6.4-8.9) L 12/09/18 03:39 Albumin 2.3 g/dL (3.5-5.7) L 12/09/18 03:39 Albumin/Globulin Ratio 0.7 (1.1-2.2) L 12/09/18 03:39 Prealbumin 3.4 mg/dL (17.0-34.0) L 12/03/18 04:00 HDL Cholesterol 22 mg/dL (40-59) L 12/01/18 03:19 Urine Clarity Cloudy (Clear) A 12/01/18 04:23 Urine Blood Moderate (Negative) H 12/01/18 04:23 Urine Nitrite Positive (Negative) A 12/01/18 04:23 Ur Leukocyte Esterase Large (Negative) H 12/01/18 04:23 Urine Microscopic WBC 3-5 per hpf (0-3) H 12/01/18 04:23 Ur Squamous Epith Cells Many per lpf (None-Few) H 12/01/18 04:23 Urine Bacteria Moderate per hpf (None-Few) H 12/01/18 04:23 E. coli (PCR) DETECTED (Not Detect) A 12/01/18 03:50 - Microbiology Findings Microbiology Findings: Microbiology, Last 48 Hours 12/08/18 12:15 Sputum Culture - Preliminary Sputum 12/02/18 07:08 Blood Culture - Final Peripheral Venipuncture No growth. Final report. 12/02/18 07:08 Blood Culture - Final Peripheral Venipuncture No growth. Final report. - Clinical Findings Intake & Output: Intake & Output 12/08/18 12/09/18 12/09/18 23:59 07:59 15:59 Intake Total 741.8 / 2936.7 744.8 / 796.7 51.9 / 796.7 Output Total 988 / 5347 478 / 581 103 / 581 Balance -246.2 / -2410.3 266.8 / 215.7 -51.1 / 215.7 Weight 119.5 kg 117.4 kg 117.4 kg
[2018-12-09 09:34] LABS: Magnesium 2.3 mg/dL (1.6-2.6)
[2018-12-09] MEDS: Budesonide/Formoterol 160/4.5 1 PUFF INH IH SCH ×2 (09:50→21:34)
[2018-12-09] MEDS ORDERED: Sennosides 8.6 MG TABLET PO SCH (11:00)
[2018-12-09] MEDS: Phenylephrine 50 MG in D5% in Water 250 ML IVC SCH (12:06)
[2018-12-09] MEDS: Norepinephrine 4 MG in D5% in Water 250 ML IVC SCH (15:11)
--- NOTE | 2018-12-09 17:05 | Nephrology Progress Note ---
Date of Encounter: 12/09/18 Time of Encounter: 12:00 - Assessment and Plan (1) Acute and chronic respiratory failure with hypoxia Current Visit: Yes Status: Acute Vent management per primary team (2) Acute kidney injury superimposed on CKD Current Visit: Yes Status: Acute Continue CVVHDF as prescribed with UF at 0-50cc/hr still with goal of tapering pressor support Continue to limit obligate fluids if possible Continue to avoid nephrotoxins if possible UOP remains poor hence no signs of renal recovery yet (3) Sepsis Current Visit: Yes Status: Acute Antibiotics as per primary with renal dosing. Qualifiers: Sepsis type: sepsis due to unspecified organism Qualified Code(s): A41.9 - Sepsis, unspecified organism; R65.20 - Severe sepsis without septic shock (4) Hydronephrosis Current Visit: Yes Status: Acute per urology, previously seen Qualifiers: Hydronephrosis type: with ureteral calculous obstruction Qualified Code(s): N13.2 - Hydronephrosis with renal and ureteral calculous obstruction Subjective Principal diagnosis: RANCHO Interval history: Pt seen and examined remains intubated on CRRT, no overnight per nurse but still on pressor support and cardizem gtt being tapered hopefully off Objective - Vital Signs Vital signs: Vital Signs Temp Pulse Resp BP Pulse Ox 12/09/18 16:00 79 16 102/69 97 12/09/18 15:00 98.0 F 72 17 96/68 99 12/09/18 14:00 98.6 F 70 19 101/59 99 12/09/18 13:30 18 82/71 98 12/09/18 13:00 98.0 F 69 19 113/71 97 12/09/18 12:00 97.8 F 68 15 89/56 97 12/09/18 11:09 15 99 12/09/18 10:52 98.7 F 83 15 114/60 99 12/09/18 10:00 98.7 F 74 14 97/60 100 12/09/18 09:50 14 110/77 100 12/09/18 09:00 99.5 F 91 17 82/45 100 12/09/18 08:00 99.1 F 93 14 102/58 100 12/09/18 07:30 99.0 F 90 15 77/47 99 12/09/18 06:00 107 15 91/54 99 12/09/18 05:17 16 99 12/09/18 05:00 97 16 93/57 99 12/09/18 04:00 98.2 F 97 14 98/64 100 12/09/18 03:35 19 100 12/09/18 03:20 97 12/09/18 03:00 84 14 72/41 96 12/09/18 02:00 85 14 74/45 98 12/09/18 01:18 14 98 12/09/18 01:00 90 15 76/43 98 12/09/18 00:00 98.3 F 84 17 99/48 96 12/08/18 23:25 15 97 12/08/18 23:20 89 12/08/18 23:00 67 14 91/45 97 12/08/18 22:00 78 14 91/52 99 12/08/18 21:45 14 99 12/08/18 21:00 85 14 101/61 100 12/08/18 20:00 97.8 F 79 14 99/48 100 12/08/18 19:42 15 100 12/08/18 19:00 69 16 100/57 100 12/08/18 18:00 84 19 136/78 99 12/08/18 17:30 16 129/85 100 Intake and Output 12/09/18 12/09/18 12/09/18 07:59 15:59 23:59 Intake Total 744.8 / 1687.9 921.1 / 1687.9 22 / 1687.9 Output Total 528 / 2493 1363 / 2493 602 / 2493 Balance 216.8 / -805.1 -441.9 / -805.1 -580 / -805.1 Intake: IV Fluids 497.8 / 1191.9 694.1 / 1191.9 PrismaSATE BGK 4/2.5 5,000 ML @ 0 / 0 0 / 0 1000 mls/hr CRRT CONT [facility] Rx#: [id number] Precedex Premix 400 mcg In 100 64.1 / 200.0 135.9 / 200.0 ml @ 0.2 MCG/KG/HR 6.31 mls/hr IVC .[id number] [facility] Rx#:[id number] Cardizem 50 MG In 0.9 % Sodium 1.7 / 30.4 28.7 / 30.4 Chloride 40 ML @ 5 MG/HR 5 mls/ hr IVC CONT [facility] Rx#:[id number] FentaNYL (PF) 1,000 MCG In 0.9 94.0 / 149.8 55.8 / 149.8 % Sodium Chloride 80 ML @ 50 MCG/HR 5 mls/hr IVC CONT [facility] Rx #:[id number] Heparin 25,000 UNIT/250 ML D5W 250.0 / 380.0 130 / 380.0 25,000 unit In 250 ml @ 14 UNIT /KG/HR 15.414 mls/hr IVC . [id number] [facility] Rx#:[id number] Phenylephrine 50 MG In Dextrose 88.0 / 161.7 73.7 / 161.7 5% 250 ML @ 100 MCG/MIN 30.6 mls/hr IVC CONT [facility] Rx#: [id number] Maxipime 1,000 MG In Water for 20 / 20 inj. (sterile) 10 ML @ 300 mls/ hr IVP Q8HR [facility] Rx#:[id number] Vancocin 1,000 MG In 0.9 % 250 / 250 Sodium Chloride 250 ML @ 167 mls/hr IVPB Q24H [facility] Rx#: [id number] Tube Feeding 97 / 271 152 / 271 22 / 271 Free Water 75 / 150 75 / 150 Free Water Intake Amount 75 / 75 Output: Camryn 50 / 992 646 / 992 296 / 992 Catheter 15 / 70 45 / 70 10 / 70 Gastric Drainage 50 / 50 Fluid Removed by Prismaflex 413 / 1381 672 / 1381 296 / 1381 Other: Weight 117.4 kg 117.4 kg 117.4 kg Blood Glucose* 150 186 197 Patient Weight 12/09/18 23:59 Weight 117.4 kg - General Appearance General appearance: Present: sedated on ventilator, intubated EENT: Present: ATNC, mucous membranes moist Neck: Present: no JVD, supple Additional Comments: good areation ant bilat Cardiology: Present: edema (improved), normal S1, normal S2 Dialysis Vascular Access: Venous Catheter (temp line) Gastrointestinal: Present: no tenderness, no guarding, obese Integumentary: Present: warm and dry Additional Comments: sedated Musculoskeletal: Present: no deformities Additional Comments: sedated - Lab 12/11/18 04:05 12/11/18 04:05 Most recent lab results 12/09/18 03:39 Magnesium 2.3 Consult Discharge Plan - Plan Referrals: Kelly Cardozo RN [Primary Care Provider] -
[2018-12-10] MEDS: PrismaSATE BGK 4/2.5 5,000 ML CRRT SCH ×10 (00:54→22:00)
[2018-12-10] MEDS: Dexmedetomidine HCl 400 MCG/100 ML MLS IVC SCH ×4 (01:09→18:46)
[2018-12-10] MEDS: Insulin LISPRO 300 UNITS/3 ML VIAL SQ SCH ×5 (03:18→20:00)
[2018-12-10] MEDS: Artificial Tears SOLN 15 ML BOTTLE BOTH EYES SCH ×5 (03:18→23:26)
[2018-12-10] MEDS: Levalbuterol Neb 1.25 MG/3 ML IH SCH ×4 (03:42→21:11)
[2018-12-10 04:49] LABS: Hematocrit 35.2 % (35.3-44.9); Hemoglobin 10.7 g/dL (11.5-15.4); Mean Corpuscular HGB Conc 30.4 g/dL (31.6-35.5); Mean Corpuscular Hemoglobin 28.9 pg (28.0-33.3); Mean Corpuscular Volume 95.1 fL (83.0-100.0); Mean Platelet Volume 12.5 fL (9.4-12.4); Nucleated Red Blood Cells 0.3 /100 WBC (0); Platelet Count 127 K/mcL (140-400); Red Cell Distribution Width 18.6 % (11.5-14.5); White Blood Count 17.3 K/mcL (4.3-11.1)
[2018-12-10 04:56] LABS: ABG Base Excess 2 mEq/L (-2 to 3); ABG HCO3 26 mEq/L (21-27); ABG Oxygen Saturation 96 % (95-98); ABG PCO2 40 mmHg (35-45); ABG PH 7.43 pH Units (7.32-7.45); ABG PO2 80 mmHg (85-104); ABG TCO2 28 mEq/L (20-26); Blood Gas Modality ASSIST CONTROL; Blood Gas PEEP 5 cm H2O; Blood Gas VT 550 cc
[2018-12-10 05:09] LABS: BUN/Creatinine Ratio 10 (6-26); Blood Urea Nitrogen 10 mg/dL (8-23); Calcium 7.9 mg/dL (8.6-10.3); Carbon Dioxide 26 mEq/L (23-29); Chloride 100 mEq/L (98-107); Glucose 167 mg/dL (70-105); Osmolality,Calculated 283 (280-300); Potassium 3.9 mEq/L (3.5-5.1); Sodium 135 mEq/L (136-145); eGFR For African Americans > 60 (> 60); eGFR For Non-African Americans 53 (> 60)
[2018-12-10 05:34] LABS: Anisocytosis 1+ (Not Present); Hypochromasia Present (Not Present); Lymphocytes # 2.4 K/mcL (0.6-4.6); Monocytes # 1.4 K/mcL (0.0-1.3); Neutrophils # 13.2 K/mcL (1.6-8.9); Platelet Estimate Slight Decrease (Normal)
[2018-12-10] MEDS: Docusate Oral Soln 100 MG/10 ML UDC PO SCH ×2 (08:47→23:27)
[2018-12-10] MEDS: Chlorhexidine Rinse 15 ML MOUTHWASH MM SCH ×2 (08:47→23:27)
[2018-12-10] MEDS: *HR* Amiodarone 200 MG TABLET PO SCH (08:47)
[2018-12-10] MEDS: Cefepime HCl 1,000 MG in Water for inj. (sterile) 10 ML IVP SCH ×3 (08:47→23:48)
[2018-12-10] MEDS: Pantoprazole 40 MG VIAL IVP SCH (08:48)
[2018-12-10] MEDS: Phenylephrine 50 MG in D5% in Water 250 ML IVC SCH ×2 (09:01→18:00)
--- NOTE | 2018-12-10 09:12 | Pulmonology Progress Note ---
<EagleGerman cooper W - Last Filed: 12/10/18 09:32> Date of Encounter: 12/10/18 Objective PUL Vital signs: Last Vital Signs Temp 99 F 12/10/18 08:00 Pulse 86 12/10/18 09:00 Resp 20 12/10/18 09:19 BP 96/49 12/10/18 09:19 Pulse Ox 98 12/10/18 09:19 Ventilator Settings Ventilator Settings: Ventilator Settings, Last 8 Hours Ventilator Tidal Volume 500 Setting Ventilator Tidal Volume 500 Setting Ventilator Tidal Volume 500 Setting Ventilator Tidal Volume 550 Setting Ventilator Tidal Volume 550 Setting Ventilator Tidal Volume 550 Setting Ventilator Tidal Volume 550 Setting Ventilator Tidal Volume 550 Setting Ventilator Tidal Volume 550 Setting Ventilator Tidal Volume 550 Setting Ventilator Tidal Volume 550 Setting Ventilator Tidal Volume 550 Setting Ventilator Tidal Volume 550 Setting Ventilator Respiratory Rate 14 Setting Ventilator Respiratory Rate 14 Setting Ventilator Respiratory Rate 14 Setting Ventilator Respiratory Rate 14 Setting Ventilator Respiratory Rate 14 Setting Ventilator Respiratory Rate 14 Setting Ventilator Respiratory Rate 14 Setting Ventilator Respiratory Rate 14 Setting Ventilator Respiratory Rate 14 Setting Ventilator Respiratory Rate 14 Setting Ventilator Respiratory Rate 14 Setting Ventilator Respiratory Rate 14 Setting Ventilator Respiratory Rate 14 Setting Actual Respiratory Rate 21 Actual Respiratory Rate 19 Actual Respiratory Rate 19 Actual Respiratory Rate 19 Actual Respiratory Rate 16 Actual Respiratory Rate 16 Actual Respiratory Rate 16 Actual Respiratory Rate 16 Actual Respiratory Rate 14 Actual Respiratory Rate 14 Actual Respiratory Rate 14 Actual Respiratory Rate 14 Positive End Expiratory 5 Pressure Positive End Expiratory 5 Pressure Positive End Expiratory 5 Pressure Positive End Expiratory 5 Pressure Positive End Expiratory 5 Pressure Positive End Expiratory 5 Pressure Positive End Expiratory 5 Pressure Positive End Expiratory 5 Pressure Positive End Expiratory 5 Pressure Positive End Expiratory 5 Pressure Positive End Expiratory 5 Pressure Positive End Expiratory 5 Pressure Positive End Expiratory 5 Pressure Peak Inspiratory Airway 28 Pressure Peak Inspiratory Airway 28 Pressure Peak Inspiratory Airway 25 Pressure Peak Inspiratory Airway 27 Pressure Peak Inspiratory Airway 26 Pressure Peak Inspiratory Airway 26 Pressure Peak Inspiratory Airway 26 Pressure Peak Inspiratory Airway 26 Pressure Peak Inspiratory Airway 29 Pressure Peak Inspiratory Airway 30 Pressure Peak Inspiratory Airway 30 Pressure Peak Inspiratory Airway 28 Pressure Results - Laboratory Findings CBC and BMP: 12/10/18 04:09 12/10/18 04:09 ABG ABG pH 7.43 pH Units (7.32-7.45) 12/10/18 04:52 ABG pCO2 40 mmHg (35-45) 12/10/18 04:52 ABG pO2 80 mmHg (85-104) L 12/10/18 04:52 ABG O2 Saturation 96 % (95-98) 12/10/18 04:52 PT/INR, D-dimer PT 13.7 Seconds (9.4-12.1) H 12/03/18 11:55 Abnormal lab findings: Abnormal lab results WBC 17.3 K/mcL (4.3-11.1) H 12/10/18 04:09 RBC 3.70 M/mcL (3.82-4.97) L 12/10/18 04:09 Hgb 10.7 g/dL (11.5-15.4) L 12/10/18 04:09 Hct 35.2 % (35.3-44.9) L 12/10/18 04:09 MCHC 30.4 g/dL (31.6-35.5) L 12/10/18 04:09 RDW 18.6 % (11.5-14.5) H 12/10/18 04:09 Plt Count 127 K/mcL (140-400) L 12/10/18 04:09 MPV 12.5 fL (9.4-12.4) H 12/10/18 04:09 Band Neutrophils % 10.0 % (0-4) H 12/10/18 04:09 Metamyelocytes % 2.0 % (0) H 12/10/18 04:09 Myelocytes % 2.0 % (0) H 12/09/18 03:39 Neutrophils # 13.2 K/mcL (1.6-8.9) H 12/10/18 04:09 Monocytes # 1.4 K/mcL (0.0-1.3) H 12/10/18 04:09 Eosinophils # 0.8 K/mcL (0.0-0.6) H 12/08/18 03:47 Nucleated RBCs/100 WBC 0.3 /100 WBC (0) H 12/10/18 04:09 Smudge Cells Present (Not Present) A 12/08/18 03:47 Platelet Estimate Slight Decrease (Normal) L 12/10/18 04:09 Large Platelets Present (Not Present) A 12/07/18 03:41 Immature Plt Fraction 12.9 % (1.1-6.1) H 12/07/18 03:41 Polychromasia 1+ (Not Present) A 12/09/18 03:39 Hypochromasia Present (Not Present) A 12/10/18 04:09 Anisocytosis 1+ (Not Present) A 12/10/18 04:09 PT 13.7 Seconds (9.4-12.1) H 12/03/18 11:55 APTT 36.4 Seconds (26.0-36.0) H 12/01/18 03:19 Heparin Anti-Xa, Unfract 0.29 IU/mL (0.30-0.70) L 12/08/18 03:47 ABG pH 7.16 pH Units (7.32-7.45) L* 12/03/18 06:23 ABG pCO2 49 mmHg (35-45) H 12/06/18 04:57 ABG pO2 80 mmHg (85-104) L 12/10/18 04:52 ABG HCO3 28 mEq/L (21-27) H 12/05/18 04:22 ABG Total CO2 28 mEq/L (20-26) H 12/10/18 04:52 ABG O2 Saturation 94 % (95-98) L 12/09/18 04:36 ABG Base Excess -9 mEq/L (-2 to 3) L 12/03/18 06:23 Sodium 135 mEq/L (136-145) L 12/10/18 04:09 Chloride 111 mEq/L (98-107) H 12/02/18 04:21 Carbon Dioxide 19 mEq/L (23-29) L 12/03/18 04:00 BUN 28 mg/dL (8-23) H 12/04/18 04:27 Creatinine 1.26 mg/dL (0.60-1.20) H 12/05/18 03:40 Est GFR ( Amer) 56 (> 60) L 12/06/18 03:20 Est GFR (Non-Af Amer) 53 (> 60) L 12/10/18 04:09 Glucose 167 mg/dL (70-105) H 12/10/18 04:09 POC Glucose 151 mg/dL (70-99) H 12/09/18 23:08 Hemoglobin A1c 8.6 % (-5.6) H 12/01/18 03:19 Calculated Osmolality 279 (280-300) L 12/09/18 03:39 Calcium 7.9 mg/dL (8.6-10.3) L 12/10/18 04:09 Phosphorus 2.6 mg/dL (2.7-4.5) L 12/06/18 03:20 Magnesium 1.4 mg/dL (1.6-2.6) L 12/02/18 04:21 Total Bilirubin 1.1 mg/dL (0.3-1.0) H 12/09/18 03:39 Direct Bilirubin 0.6 mg/dL (0.0-0.2) H 12/09/18 03:39 Serum Total Protein 5.5 g/dL (6.4-8.9) L 12/09/18 03:39 Albumin 2.3 g/dL (3.5-5.7) L 12/09/18 03:39 Albumin/Globulin Ratio 0.7 (1.1-2.2) L 12/09/18 03:39 Prealbumin 3.4 mg/dL (17.0-34.0) L 12/03/18 04:00 HDL Cholesterol 22 mg/dL (40-59) L 12/01/18 03:19 Urine Clarity Cloudy (Clear) A 12/01/18 04:23 Urine Blood Moderate (Negative) H 12/01/18 04:23 Urine Nitrite Positive (Negative) A 12/01/18 04:23 Ur Leukocyte Esterase Large (Negative) H 12/01/18 04:23 Urine Microscopic WBC 3-5 per hpf (0-3) H 12/01/18 04:23 Ur Squamous Epith Cells Many per lpf (None-Few) H 12/01/18 04:23 Urine Bacteria Moderate per hpf (None-Few) H 12/01/18 04:23 E. coli (PCR) DETECTED (Not Detect) A 12/01/18 03:50 - Microbiology Findings Microbiology Findings: Microbiology, Last 48 Hours 12/08/18 12:15 Sputum Culture - Preliminary Sputum - Clinical Findings Intake & Output: Intake & Output 12/09/18 12/10/18 12/10/18 23:59 07:59 15:59 Intake Total 460.4 / 2144.3 561.7 / 777.7 216 / 777.7 Output Total 1200 / 3166 563 / 819 256 / 819 Balance -739.6 / -1021.7 -1.3 / -41.3 -40 / -41.3 Weight 117.4 kg 116.2 kg Consult Discharge Plan - Plan Referrals: Kelly Cardozo, RN [Primary Care Provider] - - Attending Attestation I examined this patient and my medical decision-making was reviewed with the Resident Physician. I agree with the documented findings, disposition and treatment plan as described except to the extent set forth below. We independently had [id number] contact with the patient I spent 32min of Critical Care time with this patient. It involved decision making of high complexity to assess, manipulate, and support vital organ system failure and/or to prevent further life threatening deterioration of the patient's condition. The time involved in the performance of separately reportable procedures was not counted toward critical care time. Patient seen and examined at bedside Labs, radiology, chart personally reviewed. Management was reviewed during multidisciplinary critical care rounds. SHELLFISH WEIGHER: Remains encephalopathic sedation has been titrated down significantly now she is just on low-dose Precedex and very low-dose fentanyl as his metabolic encephalopathy complicated by delirium from critical illness/ICU stayWe will focus on christianity of sleep-wake cycle. avoid sensory deprivation, and avoid SHELLFISH WEIGHER depressant medications as able. Pulm: Acute hypoxic respiratory failure remains on vent acceptable gas exchange stated not a candidate for spontaneous breathing trial because his mental status and ongoing hemodynamic instability Cards: Cardiogenic shock remains on vasopressors A. fib with RVR rate better controlled today she is a low dose beta kiana to prevent recurrence of A. fib with RVR we will titrate initial dose down a bit because of ongoing hypotension. She has some persistent element of capillary leak this may be from ongoing sepsis GI: Ppi prophylaxis given continue bowel regimen Nutrition: Continue enteral nutrition per dietary recommendations Renal: Acute kidney injury requiring CRRT she remains on Camryn today. Still Anuric. Patient nephrology following plan removal as tolerated UOP Monitored, Cont to Trend sCr and monitor Electrolytes. ID: She is being treated for pyelonephritis with obstructing infected renal calculus status post ureteral stent placement. Obstructing renal calculi should ideally be removed however given instability been a poor surgical candidate. Continue broad-spectrum antibiotics white count remains persistently elevated Heme/Onc: She remains on heparin drip per Camryn as well as A. fib blood counts are stable Endo: Glucose Monitored Integ/MSK: Skin Care per routine ICU Nursing Protocol to prevent ulcers. Lines: All lines examined without evidence of infection : Dispo: Monitor in ICU for critical illness CODE: DNAR I had an extensive conversation with the patient's healthcare proxy/1 of her POA is her brother Ajay yesterday and explained overall prognosis is still quite poor she has not made significant improvement over the next last week remains intubated and coming up on 2 weeks of being intubated. The brothers who were go al POA the patient will be coming to the hospital tomorrow for meeting. I am going to advised palliative care medicine team to that goals of care discussion. <Narcisa Yip - Last Filed: 12/10/18 16:59> Date of Encounter: 12/10/18 Time of Encounter: 04:00 Assessment and Plan (1) Acute and chronic respiratory failure with hypoxia Current Visit: Yes Status: Acute Due to hemodynamic instability with septic stone Has been vent dependent since 12/01/18 Is having more oral secretion today WBC improved from 20.2 to 17.3 Chest x-ray shows unchanged pulmonary edema Currently intubated and sedated with Fentanyl and Precedex, weaned off propofol PH 7.43 PCO2 40 PaO2 80 and HCO3 26 Pt. does have hx of COPD and tobacco abuse -Continue scheduled bronchodilators and Symbicort -Continue to monitor closely in the ICU -GI prophylaxis with daily Protonix IV -Continue to titrate down sedation (2) Sepsis Current Visit: Yes Status: Acute Likely secondary to urinary tract infection versus upper respiratory infection BCx x2 positive for Escherichia coli Serology PCR shows E. coli Wound cultures show E. coli, Proteus and gram-positive cocci currently growing --both sensitive to cefepime UCx show E. coli Dr. Alejandro placed subclavian central line due to poor access of IJ and femorals Dr. Salguero placed left ureteral stent on 12/01 Likely secondary to septic stone with e.coli UTI -Urology recommends stone extraction after hemodynamic stability -Continue IV Cefepime day 10 of 14 -Continue to follow urine culture speciation for gram positive cocci, continue vancomycin day 3 of 14 Qualifiers: Sepsis type: sepsis due to unspecified organism Qualified Code(s): A41.9 - Sepsis, unspecified organism (3) UTI (urinary tract infection) Current Visit: Yes Status: Acute E. coli PCR positive with Escherichia coli growing in urine Pt on Cefepime day 10 of 14 UCx show E. coli sensitive to cefepime Additionally we will continue vancomycin due to gram-positive cocci seen left kidney biopsy Qualifiers: Urinary tract infection type: acute cystitis Hematuria presence: with hematuria Qualified Code(s): N30.01 - Acute cystitis with hematuria (4) Ureteral calculi Current Visit: Yes Status: Acute As seen on CT abd and pelvis Urology following and placed a stent on 12/01 Concerning the calculi may be a nidus for ongoing infection Urology recommends stone extraction after hemodynamic stability We will consider touching base with urology (5) Acute kidney injury superimposed on CKD Current Visit: Yes Status: Acute Baseline Creatinine 1.1, this morning 1.05 Presented with creatinine of 2.4 on 12/01/18 -On CRRT -Continue to monitor and avoid nephrotoxic drugs -CRRT started 12/03 - electrolytes, BUN and creatinine stabilized, ongoing CRRT, continues to have poor urine output -Significant output with CRRT, yesterday 1809 -Nephrology consulted (6) Diabetes mellitus Current Visit: Yes Status: Chronic Continue [id number] glucose check Continue sliding-scale insulin Qualifiers: Diabetes mellitus type: type 2 Diabetes mellitus terminal gauger insulin use: with terminal gauger use Diabetes mellitus complication status: with skin complications Diabetes mellitus complication detail: with foot ulcer Qualified Code(s): E11.621 - Type 2 diabetes mellitus with foot ulcer; L97.509 - Non-pressure chronic ulcer of other part of unspecified foot with unspecified severity; Z79.4 - long term (current) use of insulin (7) Atrial fibrillation Current Visit: Yes Status: Acute History of atrial fibrillation presented with A. fib and RVR was on Cardizem drip and amiodarone drip initially Cardizem drip has been stopped on 12/08/18 Was started on oral metoprolol 75 mg twice a day yesterday Due to decrease in blood pressure will decrease metoprolol dose to 25 mg twice a day Continues to monitor heart rate and blood pressure to titrate down vasopressor On heparin drip Qualifiers: Atrial fibrillation type: chronic Qualified Code(s): I48.2 - Chronic atrial fibrillation (8) Goals of care, counseling/discussion Current Visit: Yes Status: Acute There was a phone discussion with her brother who is the POA and Dr. Mitchell about goals of care. Ms. Rascon has been vent dependent since 12/01/18 to discuss further goals of care. There is a planned family meeting on 12/11/18. Palliative care consulted (9) DVT prophylaxis Current Visit: Yes Status: Acute Heparin drip Subjective Principal diagnosis: RANCHO Interval history: Ms. Rascon was seen at bedside this morning. Vitals were reviewed and she remained afebrile overnight. She is sedated and intubated. Blood pressure was low this morning and is requiring more pressors. Objective PUL Vital signs: Last Vital Signs Temp 99 F 12/10/18 08:00 Pulse 80 12/10/18 08:00 Resp 19 12/10/18 08:00 BP 85/46 12/10/18 08:00 Pulse Ox 98 12/10/18 08:00 General appearance: other Eyes: nonicteric ENT: oropharynx moist Auscultation: bilateral: diminished breath sounds (Bilateral lower basis) Cardiovascular: irregular rhythm (A. fib), other (Normal rate) Gastrointestinal: hypoactive bowel sounds, soft, non-distended Extremities: no cyanosis, edema (Edema of bilateral upper extremity) Musculoskeletal: other (Right BKA and left toe amputation, no cyanosis) unable to assess due to mental status (Deeply sedated) Ventilator Settings Ventilator Settings: Ventilator Settings, Last 8 Hours Ventilator Tidal Volume 500 Setting Ventilator Tidal Volume 550 Setting Ventilator Tidal Volume 550 Setting Ventilator Tidal Volume 550 Setting Ventilator Tidal Volume 550 Setting Ventilator Tidal Volume 550 Setting Ventilator Tidal Volume 550 Setting Ventilator Tidal Volume 550 Setting Ventilator Tidal Volume 550 Setting Ventilator Tidal Volume 550 Setting Ventilator Tidal Volume 550 Setting Ventilator Tidal Volume 550 Setting Ventilator Respiratory Rate 14 Setting Ventilator Respiratory Rate 14 Setting Ventilator Respiratory Rate 14 Setting Ventilator Respiratory Rate 14 Setting Ventilator Respiratory Rate 14 Setting Ventilator Respiratory Rate 14 Setting Ventilator Respiratory Rate 14 Setting Ventilator Respiratory Rate 14 Setting Ventilator Respiratory Rate 14 Setting Ventilator Respiratory Rate 14 Setting Ventilator Respiratory Rate 14 Setting Ventilator Respiratory Rate 14 Setting Actual Respiratory Rate 19 Actual Respiratory Rate 19 Actual Respiratory Rate 16 Actual Respiratory Rate 16 Actual Respiratory Rate 16 Actual Respiratory Rate 16 Actual Respiratory Rate 14 Actual Respiratory Rate 14 Actual Respiratory Rate 14 Actual Respiratory Rate 14 Actual Respiratory Rate 14 Positive End Expiratory 5 Pressure Positive End Expiratory 5 Pressure Positive End Expiratory 5 Pressure Positive End Expiratory 5 Pressure Positive End Expiratory 5 Pressure Positive End Expiratory 5 Pressure Positive End Expiratory 5 Pressure Positive End Expiratory 5 Pressure Positive End Expiratory 5 Pressure Positive End Expiratory 5 Pressure Positive End Expiratory 5 Pressure Positive End Expiratory 5 Pressure Peak Inspiratory Airway 25 Pressure Peak Inspiratory Airway 27 Pressure Peak Inspiratory Airway 26 Pressure Peak Inspiratory Airway 26 Pressure Peak Inspiratory Airway 26 Pressure Peak Inspiratory Airway 26 Pressure Peak Inspiratory Airway 29 Pressure Peak Inspiratory Airway 30 Pressure Peak Inspiratory Airway 30 Pressure Peak Inspiratory Airway 28 Pressure Peak Inspiratory Airway 28 Pressure Results - Laboratory Findings CBC and BMP: 12/10/18 04:09 12/10/18 04:09 ABG ABG pH 7.43 pH Units (7.32-7.45) 12/10/18 04:52 ABG pCO2 40 mmHg (35-45) 12/10/18 04:52 ABG pO2 80 mmHg (85-104) L 12/10/18 04:52 ABG O2 Saturation 96 % (95-98) 12/10/18 04:52 PT/INR, D-dimer PT 13.7 Seconds (9.4-12.1) H 12/03/18 11:55 Abnormal lab findings: Abnormal lab results WBC 17.3 K/mcL (4.3-11.1) H 12/10/18 04:09 RBC 3.70 M/mcL (3.82-4.97) L 12/10/18 04:09 Hgb 10.7 g/dL (11.5-15.4) L 12/10/18 04:09 Hct 35.2 % (35.3-44.9) L 12/10/18 04:09 MCHC 30.4 g/dL (31.6-35.5) L 12/10/18 04:09 RDW 18.6 % (11.5-14.5) H 12/10/18 04:09 Plt Count 127 K/mcL (140-400) L 12/10/18 04:09 MPV 12.5 fL (9.4-12.4) H 12/10/18 04:09 Band Neutrophils % 10.0 % (0-4) H 12/10/18 04:09 Metamyelocytes % 2.0 % (0) H 12/10/18 04:09 Myelocytes % 2.0 % (0) H 12/09/18 03:39 Neutrophils # 13.2 K/mcL (1.6-8.9) H 12/10/18 04:09 Monocytes # 1.4 K/mcL (0.0-1.3) H 12/10/18 04:09 Eosinophils # 0.8 K/mcL (0.0-0.6) H 12/08/18 03:47 Nucleated RBCs/100 WBC 0.3 /100 WBC (0) H 12/10/18 04:09 Smudge Cells Present (Not Present) A 12/08/18 03:47 Platelet Estimate Slight Decrease (Normal) L 12/10/18 04:09 Large Platelets Present (Not Present) A 12/07/18 03:41 Immature Plt Fraction 12.9 % (1.1-6.1) H 12/07/18 03:41 Polychromasia 1+ (Not Present) A 12/09/18 03:39 Hypochromasia Present (Not Present) A 12/10/18 04:09 Anisocytosis 1+ (Not Present) A 12/10/18 04:09 PT 13.7 Seconds (9.4-12.1) H 12/03/18 11:55 APTT 36.4 Seconds (26.0-36.0) H 12/01/18 03:19 Heparin Anti-Xa, Unfract 0.29 IU/mL (0.30-0.70) L 12/08/18 03:47 ABG pH 7.16 pH Units (7.32-7.45) L* 12/03/18 06:23 ABG pCO2 49 mmHg (35-45) H 12/06/18 04:57 ABG pO2 80 mmHg (85-104) L 12/10/18 04:52 ABG HCO3 28 mEq/L (21-27) H 12/05/18 04:22 ABG Total CO2 28 mEq/L (20-26) H 12/10/18 04:52 ABG O2 Saturation 94 % (95-98) L 12/09/18 04:36 ABG Base Excess -9 mEq/L (-2 to 3) L 12/03/18 06:23 Sodium 135 mEq/L (136-145) L 12/10/18 04:09 Chloride 111 mEq/L (98-107) H 12/02/18 04:21 Carbon Dioxide 19 mEq/L (23-29) L 12/03/18 04:00 BUN 28 mg/dL (8-23) H 12/04/18 04:27 Creatinine 1.26 mg/dL (0.60-1.20) H 12/05/18 03:40 Est GFR ( Amer) 56 (> 60) L 12/06/18 03:20 Est GFR (Non-Af Amer) 53 (> 60) L 12/10/18 04:09 Glucose 167 mg/dL (70-105) H 12/10/18 04:09 POC Glucose 151 mg/dL (70-99) H 12/09/18 23:08 Hemoglobin A1c 8.6 % (-5.6) H 12/01/18 03:19 Calculated Osmolality 279 (280-300) L 12/09/18 03:39 Calcium 7.9 mg/dL (8.6-10.3) L 12/10/18 04:09 Phosphorus 2.6 mg/dL (2.7-4.5) L 12/06/18 03:20 Magnesium 1.4 mg/dL (1.6-2.6) L 12/02/18 04:21 Total Bilirubin 1.1 mg/dL (0.3-1.0) H 12/09/18 03:39 Direct Bilirubin 0.6 mg/dL (0.0-0.2) H 12/09/18 03:39 Serum Total Protein 5.5 g/dL (6.4-8.9) L 12/09/18 03:39 Albumin 2.3 g/dL (3.5-5.7) L 12/09/18 03:39 Albumin/Globulin Ratio 0.7 (1.1-2.2) L 12/09/18 03:39 Prealbumin 3.4 mg/dL (17.0-34.0) L 12/03/18 04:00 HDL Cholesterol 22 mg/dL (40-59) L 12/01/18 03:19 Urine Clarity Cloudy (Clear) A 12/01/18 04:23 Urine Blood Moderate (Negative) H 12/01/18 04:23 Urine Nitrite Positive (Negative) A 12/01/18 04:23 Ur Leukocyte Esterase Large (Negative) H 12/01/18 04:23 Urine Microscopic WBC 3-5 per hpf (0-3) H 12/01/18 04:23 Ur Squamous Epith Cells Many per lpf (None-Few) H 12/01/18 04:23 Urine Bacteria Moderate per hpf (None-Few) H 12/01/18 04:23 E. coli (PCR) DETECTED (Not Detect) A 12/01/18 03:50 - Microbiology Findings Microbiology Findings: Microbiology, Last 48 Hours 12/08/18 12:15 Sputum Culture - Preliminary Sputum - Clinical Findings Intake & Output: Intake & Output 12/09/18 12/10/18 12/10/18 23:59 07:59 15:59 Intake Total 460.4 / 2144.3 561.7 / 682.7 121 / 682.7 Output Total 1200 / 3166 563 / 685 122 / 685 Balance -739.6 / -1021.7 -1.3 / -2.3 -1 / -2.3 Weight 117.4 kg 116.2 kg
[2018-12-10] MEDS: Budesonide/Formoterol 160/4.5 1 PUFF INH IH SCH ×2 (09:18→21:12)
[2018-12-10] MEDS: Heparin 25,000 UNIT/250 ML D5W 25,000 UNIT/250 ML IV.SOLN IVC SCH (10:26)
[2018-12-10] MEDS: Bisacodyl 10 MG RECTAL SUPPOSITORY RC SCH (12:55)
[2018-12-10] MEDS: Norepinephrine 4 MG in D5% in Water 250 ML IVC SCH (15:40)
[2018-12-10] MEDS ORDERED: *HR* Heparin 5,000 UNIT/ML VIAL ONE (20:15)
[2018-12-10] MEDS ORDERED: 0.9 % Sodium Chloride 250 ML ONE (22:09)
[2018-12-11] MEDS: Heparin 25,000 UNIT/250 ML D5W 25,000 UNIT/250 ML IV.SOLN IVC SCH ×2 (00:36→16:58)
[2018-12-11] MEDS: Dexmedetomidine HCl 400 MCG/100 ML MLS IVC SCH ×5 (00:37→21:54)
[2018-12-11] MEDS: Artificial Tears SOLN 15 ML BOTTLE BOTH EYES SCH ×7 (00:41→23:09)
[2018-12-11] MEDS: Insulin LISPRO 300 UNITS/3 ML VIAL SQ SCH ×8 (00:41→23:10)
[2018-12-11] MEDS: Levalbuterol Neb 1.25 MG/3 ML IH SCH ×4 (03:40→21:15)
[2018-12-11] MEDS: PrismaSATE BGK 4/2.5 5,000 ML CRRT SCH ×8 (03:46→19:50)
[2018-12-11 04:21] LABS: Hemoglobin 10.5 g/dL (11.5-15.4); Mean Corpuscular Hemoglobin 28.5 pg (28.0-33.3); Mean Corpuscular Volume 94.9 fL (83.0-100.0); Mean Platelet Volume 12.6 fL (9.4-12.4); Nucleated Red Blood Cells 0.3 /100 WBC (0); Platelet Count 101 K/mcL (140-400); Red Blood Count 3.69 M/mcL (3.82-4.97); Red Cell Distribution Width 18.9 % (11.5-14.5); White Blood Count 18.9 K/mcL (4.3-11.1)
[2018-12-11 04:43] LABS: BUN/Creatinine Ratio 11 (6-26); Blood Urea Nitrogen 11 mg/dL (8-23); Calcium 8.2 mg/dL (8.6-10.3); Carbon Dioxide 26 mEq/L (23-29); Chloride 101 mEq/L (98-107); Glucose 198 mg/dL (70-105); Osmolality,Calculated 281 (280-300); Potassium 4.1 mEq/L (3.5-5.1); Sodium 133 mEq/L (136-145); eGFR For African Americans > 60 (> 60); eGFR For Non-African Americans 54 (> 60)
[2018-12-11 04:49] LABS: Eosinophils # 1.1 K/mcL (0.0-0.6); Lymphocytes # 2.3 K/mcL (0.6-4.6); Monocytes # 0.8 K/mcL (0.0-1.3)
[2018-12-11 04:50] LABS: Anisocytosis 1+ (Not Present); Platelet Estimate Decreased (Normal)
[2018-12-11 04:51] LABS: Hypochromasia Present (Not Present); Polychromasia 1+ (Not Present)
[2018-12-11 04:53] LABS: ABG Base Excess 0 mEq/L (-2 to 3); ABG HCO3 25 mEq/L (21-27); ABG Oxygen Saturation 97 % (95-98); ABG PCO2 40 mmHg (35-45); ABG PH 7.39 pH Units (7.32-7.45); ABG PO2 91 mmHg (85-104); ABG TCO2 26 mEq/L (20-26); Blood Gas Modality ASSIST CONTROL; Blood Gas PEEP 5 cm H2O; Blood Gas VT 500 cc
[2018-12-11] MEDS: Phenylephrine 50 MG in D5% in Water 250 ML IVC SCH (07:05)
--- NOTE | 2018-12-11 07:16 | Pulmonology Progress Note ---
<Narcisa Yip - Last Filed: 12/11/18 07:14> Date of Encounter: 12/11/18 Time of Encounter: 07:16 Assessment and Plan (1) Acute and chronic respiratory failure with hypoxia Current Visit: Yes Status: Acute Due to hemodynamic instability with septic stone Has been vent dependent since 12/01/18 Is having more oral secretion today WBC improved from 20.2 to 17.3 Chest x-ray shows unchanged pulmonary edema Currently intubated and sedated with Fentanyl and Precedex, weaned off propofol PH 7.43 PCO2 40 PaO2 80 and HCO3 26 Pt. does have hx of COPD and tobacco abuse -Continue scheduled bronchodilators and Symbicort -Continue to monitor closely in the ICU -GI prophylaxis with daily Protonix IV -Continue to titrate down sedation (2) Sepsis Current Visit: Yes Status: Acute Likely secondary to urinary tract infection versus upper respiratory infection BCx x2 positive for Escherichia coli Serology PCR shows E. coli Wound cultures show E. coli, Proteus and gram-positive cocci currently growing --both sensitive to cefepime UCx show E. coli Dr. Alejandro placed subclavian central line due to poor access of IJ and femorals Dr. Salguero placed left ureteral stent on 12/01 Likely secondary to septic stone with e.coli UTI -Urology recommends stone extraction after hemodynamic stability -Continue IV Cefepime day 10 of 14 -Continue to follow urine culture speciation for gram positive cocci, continue vancomycin day 3 of 14 Qualifiers: Sepsis type: sepsis due to unspecified organism Qualified Code(s): A41.9 - Sepsis, unspecified organism (3) UTI (urinary tract infection) Current Visit: Yes Status: Acute E. coli PCR positive with Escherichia coli growing in urine Pt on Cefepime day 10 of 14 UCx show E. coli sensitive to cefepime Additionally we will continue vancomycin due to gram-positive cocci seen left kidney biopsy Qualifiers: Urinary tract infection type: acute cystitis Hematuria presence: with hematuria Qualified Code(s): N30.01 - Acute cystitis with hematuria (4) Ureteral calculi Current Visit: Yes Status: Acute As seen on CT abd and pelvis Urology following and placed a stent on 12/01 Concerning the calculi may be a nidus for ongoing infection Urology recommends stone extraction after hemodynamic stability We will consider touching base with urology (5) Acute kidney injury superimposed on CKD Current Visit: Yes Status: Acute Baseline Creatinine 1.1, this morning 1.05 Presented with creatinine of 2.4 on 12/01/18 -On CRRT -Continue to monitor and avoid nephrotoxic drugs -CRRT started 12/03 - electrolytes, BUN and creatinine stabilized, ongoing CRRT, continues to have poor urine output -Significant output with CRRT, yesterday 1809 -Nephrology consulted (6) Diabetes mellitus Current Visit: Yes Status: Chronic Continue [id number] glucose check Continue sliding-scale insulin Qualifiers: Diabetes mellitus type: type 2 Diabetes mellitus 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 fib and RVR was on Cardizem drip and amiodarone drip initially Cardizem drip has been stopped on 12/08/18 Was started on oral metoprolol 75 mg twice a day yesterday Due to decrease in blood pressure will decrease metoprolol dose to 25 mg twice a day Continues to monitor heart rate and blood pressure to titrate down vasopressor On heparin drip Qualifiers: Atrial fibrillation type: chronic Qualified Code(s): I48.2 - Chronic atrial fibrillation (8) Goals of care, counseling/discussion Current Visit: Yes Status: Acute There was a phone discussion with her brother who is the POA and Dr. Mitchell about goals of care. Ms. Rascon has been vent dependent since 12/01/18 to discuss further goals of care. There is a planned family meeting on 12/11/18. Palliative care consulted (9) DVT prophylaxis Current Visit: Yes Status: Acute Heparin drip Subjective Principal diagnosis: RANCHO Interval history: Ms. Rascon was seen at bedside this morning. Vitals were reviewed and she remained afebrile overnight. She is sedated and intubated. Blood pressure was low this morning and is requiring more pressors. Objective PUL Vital signs: Last Vital Signs Temp 98.6 F 12/11/18 03:46 Pulse 68 12/11/18 07:00 Resp 18 12/11/18 07:00 BP 117/69 12/11/18 07:00 Pulse Ox 99 12/11/18 07:00 Ventilator Settings Ventilator Settings: Ventilator Settings, Last 8 Hours Ventilator Tidal Volume 500 Setting Ventilator Tidal Volume 500 Setting Ventilator Tidal Volume 479 Setting Ventilator Tidal Volume 500 Setting Ventilator Tidal Volume 479 Setting Ventilator Tidal Volume 500 Setting Ventilator Tidal Volume 500 Setting Ventilator Tidal Volume 500 Setting Ventilator Tidal Volume 500 Setting Ventilator Tidal Volume 500 Setting Ventilator Tidal Volume 500 Setting Ventilator Tidal Volume 500 Setting Ventilator Respiratory Rate 14 Setting Ventilator Respiratory Rate 14 Setting Ventilator Respiratory Rate 14 Setting Ventilator Respiratory Rate 14 Setting Ventilator Respiratory Rate 14 Setting Ventilator Respiratory Rate 14 Setting Ventilator Respiratory Rate 14 Setting Ventilator Respiratory Rate 14 Setting Ventilator Respiratory Rate 14 Setting Ventilator Respiratory Rate 14 Setting Ventilator Respiratory Rate 14 Setting Ventilator Respiratory Rate 14 Setting Actual Respiratory Rate 19 Actual Respiratory Rate 19 Actual Respiratory Rate 18 Actual Respiratory Rate 16 Actual Respiratory Rate 19 Actual Respiratory Rate 22 Actual Respiratory Rate 16 Actual Respiratory Rate 21 Actual Respiratory Rate 20 Actual Respiratory Rate 20 Actual Respiratory Rate 20 Positive End Expiratory 5 Pressure Positive End Expiratory 5 Pressure Positive End Expiratory 5 Pressure Positive End Expiratory 5 Pressure Positive End Expiratory 5 Pressure Positive End Expiratory 5 Pressure Positive End Expiratory 5 Pressure Positive End Expiratory 5 Pressure Positive End Expiratory 5 Pressure Positive End Expiratory 5 Pressure Positive End Expiratory 5 Pressure Positive End Expiratory 5 Pressure Peak Inspiratory Airway 26 Pressure Peak Inspiratory Airway 28 Pressure Peak Inspiratory Airway 24 Pressure Peak Inspiratory Airway 29 Pressure Peak Inspiratory Airway 26 Pressure Peak Inspiratory Airway 24 Pressure Peak Inspiratory Airway 25 Pressure Peak Inspiratory Airway 23 Pressure Peak Inspiratory Airway 25 Pressure Peak Inspiratory Airway 23 Pressure Peak Inspiratory Airway 26 Pressure Results - Laboratory Findings CBC and BMP: 12/11/18 04:05 12/11/18 04:05 ABG ABG pH 7.39 pH Units (7.32-7.45) 12/11/18 04:50 ABG pCO2 40 mmHg (35-45) 12/11/18 04:50 ABG pO2 91 mmHg (85-104) 12/11/18 04:50 ABG O2 Saturation 97 % (95-98) 12/11/18 04:50 PT/INR, D-dimer PT 13.7 Seconds (9.4-12.1) H 12/03/18 11:55 Abnormal lab findings: Abnormal lab results WBC 18.9 K/mcL (4.3-11.1) H 12/11/18 04:05 RBC 3.69 M/mcL (3.82-4.97) L 12/11/18 04:05 Hgb 10.5 g/dL (11.5-15.4) L 12/11/18 04:05 Hct 35.0 % (35.3-44.9) L 12/11/18 04:05 MCHC 30.0 g/dL (31.6-35.5) L 12/11/18 04:05 RDW 18.9 % (11.5-14.5) H 12/11/18 04:05 Plt Count 101 K/mcL (140-400) L 12/11/18 04:05 MPV 12.6 fL (9.4-12.4) H 12/11/18 04:05 Band Neutrophils % 10.0 % (0-4) H 12/10/18 04:09 Metamyelocytes % 2.0 % (0) H 12/11/18 04:05 Myelocytes % 2.0 % (0) H 12/11/18 04:05 Neutrophils # 14.0 K/mcL (1.6-8.9) H 12/11/18 04:05 Monocytes # 1.4 K/mcL (0.0-1.3) H 12/10/18 04:09 Eosinophils # 1.1 K/mcL (0.0-0.6) H 12/11/18 04:05 Nucleated RBCs/100 WBC 0.3 /100 WBC (0) H 12/11/18 04:05 Smudge Cells Present (Not Present) A 12/08/18 03:47 Platelet Estimate Decreased (Normal) L 12/11/18 04:05 Large Platelets Present (Not Present) A 12/07/18 03:41 Immature Plt Fraction 12.9 % (1.1-6.1) H 12/07/18 03:41 Polychromasia 1+ (Not Present) A 12/11/18 04:05 Hypochromasia Present (Not Present) A 12/11/18 04:05 Anisocytosis 1+ (Not Present) A 12/11/18 04:05 PT 13.7 Seconds (9.4-12.1) H 12/03/18 11:55 APTT 36.4 Seconds (26.0-36.0) H 12/01/18 03:19 Heparin Anti-Xa, Unfract 0.84 IU/mL (0.30-0.70) H 12/11/18 04:05 ABG pH 7.16 pH Units (7.32-7.45) L* 12/03/18 06:23 ABG pCO2 49 mmHg (35-45) H 12/06/18 04:57 ABG pO2 80 mmHg (85-104) L 12/10/18 04:52 ABG HCO3 28 mEq/L (21-27) H 12/05/18 04:22 ABG Total CO2 28 mEq/L (20-26) H 12/10/18 04:52 ABG O2 Saturation 94 % (95-98) L 12/09/18 04:36 ABG Base Excess -9 mEq/L (-2 to 3) L 12/03/18 06:23 Sodium 133 mEq/L (136-145) L 12/11/18 04:05 Chloride 111 mEq/L (98-107) H 12/02/18 04:21 Carbon Dioxide 19 mEq/L (23-29) L 12/03/18 04:00 BUN 28 mg/dL (8-23) H 12/04/18 04:27 Creatinine 1.26 mg/dL (0.60-1.20) H 12/05/18 03:40 Est GFR ( Amer) 56 (> 60) L 12/06/18 03:20 Est GFR (Non-Af Amer) 54 (> 60) L 12/11/18 04:05 Glucose 198 mg/dL (70-105) H 12/11/18 04:05 POC Glucose 188 mg/dL (70-99) H 12/11/18 00:41 Hemoglobin A1c 8.6 % (-5.6) H 12/01/18 03:19 Calculated Osmolality 279 (280-300) L 12/09/18 03:39 Calcium 8.2 mg/dL (8.6-10.3) L 12/11/18 04:05 Phosphorus 2.6 mg/dL (2.7-4.5) L 12/06/18 03:20 Magnesium 1.4 mg/dL (1.6-2.6) L 12/02/18 04:21 Total Bilirubin 1.1 mg/dL (0.3-1.0) H 12/09/18 03:39 Direct Bilirubin 0.6 mg/dL (0.0-0.2) H 12/09/18 03:39 Serum Total Protein 5.5 g/dL (6.4-8.9) L 12/09/18 03:39 Albumin 2.3 g/dL (3.5-5.7) L 12/09/18 03:39 Albumin/Globulin Ratio 0.7 (1.1-2.2) L 12/09/18 03:39 Prealbumin 3.4 mg/dL (17.0-34.0) L 12/03/18 04:00 HDL Cholesterol 22 mg/dL (40-59) L 12/01/18 03:19 Urine Clarity Cloudy (Clear) A 12/01/18 04:23 Urine Blood Moderate (Negative) H 12/01/18 04:23 Urine Nitrite Positive (Negative) A 12/01/18 04:23 Ur Leukocyte Esterase Large (Negative) H 12/01/18 04:23 Urine Microscopic WBC 3-5 per hpf (0-3) H 12/01/18 04:23 Ur Squamous Epith Cells Many per lpf (None-Few) H 12/01/18 04:23 Urine Bacteria Moderate per hpf (None-Few) H 12/01/18 04:23 E. coli (PCR) DETECTED (Not Detect) A 12/01/18 03:50 - Microbiology Findings Microbiology Findings: Microbiology, Last 48 Hours 12/08/18 12:15 Sputum Culture - Preliminary Sputum - Clinical Findings Intake & Output: Intake & Output 12/10/18 12/10/18 12/11/18 15:59 23:59 07:59 Intake Total 971.6 / 2440.3 895 / 2440.3 713 / 713 Output Total 1808 / 4265 1756 / 4265 985 / 985 Balance -836.4 / -1824.7 -861 / -1824.7 -272 / -272 Consult Discharge Plan - Plan Referrals: Kelly Cardozo, RN [Primary Care Provider] - <German Mitchell - Last Filed: 12/11/18 09:23> Date of Encounter: 12/11/18 Objective PUL Vital signs: Last Vital Signs Temp 97.3 F L 12/11/18 08:00 Pulse 66 12/11/18 08:00 Resp 23 12/11/18 08:00 BP 114/79 12/11/18 08:00 Pulse Ox 100 12/11/18 08:00 Ventilator Settings Ventilator Settings: Ventilator Settings, Last 8 Hours Ventilator Tidal Volume 500 Setting Ventilator Tidal Volume 500 Setting Ventilator Tidal Volume 479 Setting Ventilator Tidal Volume 500 Setting Ventilator Tidal Volume 479 Setting Ventilator Tidal Volume 500 Setting Ventilator Tidal Volume 500 Setting Ventilator Tidal Volume 500 Setting Ventilator Tidal Volume 500 Setting Ventilator Tidal Volume 500 Setting Ventilator Respiratory Rate 14 Setting Ventilator Respiratory Rate 14 Setting Ventilator Respiratory Rate 14 Setting Ventilator Respiratory Rate 14 Setting Ventilator Respiratory Rate 14 Setting Ventilator Respiratory Rate 14 Setting Ventilator Respiratory Rate 14 Setting Ventilator Respiratory Rate 14 Setting Ventilator Respiratory Rate 14 Setting Ventilator Respiratory Rate 14 Setting Actual Respiratory Rate 24 Actual Respiratory Rate 23 Actual Respiratory Rate 19 Actual Respiratory Rate 19 Actual Respiratory Rate 18 Actual Respiratory Rate 16 Actual Respiratory Rate 19 Actual Respiratory Rate 22 Actual Respiratory Rate 16 Actual Respiratory Rate 21 Actual Respiratory Rate 20 Positive End Expiratory 5 Pressure Positive End Expiratory 5 Pressure Positive End Expiratory 5 Pressure Positive End Expiratory 5 Pressure Positive End Expiratory 5 Pressure Positive End Expiratory 5 Pressure Positive End Expiratory 5 Pressure Positive End Expiratory 5 Pressure Positive End Expiratory 5 Pressure Positive End Expiratory 5 Pressure Positive End Expiratory 5 Pressure Positive End Expiratory 5 Pressure Peak Inspiratory Airway 10 Pressure Peak Inspiratory Airway 10 Pressure Peak Inspiratory Airway 26 Pressure Peak Inspiratory Airway 28 Pressure Peak Inspiratory Airway 24 Pressure Peak Inspiratory Airway 29 Pressure Peak Inspiratory Airway 26 Pressure Peak Inspiratory Airway 24 Pressure Peak Inspiratory Airway 25 Pressure Peak Inspiratory Airway 23 Pressure Peak Inspiratory Airway 25 Pressure Results - Laboratory Findings CBC and BMP: 12/11/18 04:05 12/11/18 04:05 ABG ABG pH 7.39 pH Units (7.32-7.45) 12/11/18 04:50 ABG pCO2 40 mmHg (35-45) 12/11/18 04:50 ABG pO2 91 mmHg (85-104) 12/11/18 04:50 ABG O2 Saturation 97 % (95-98) 12/11/18 04:50 PT/INR, D-dimer PT 13.7 Seconds (9.4-12.1) H 12/03/18 11:55 Abnormal lab findings: Abnormal lab results WBC 18.9 K/mcL (4.3-11.1) H 12/11/18 04:05 RBC 3.69 M/mcL (3.82-4.97) L 12/11/18 04:05 Hgb 10.5 g/dL (11.5-15.4) L 12/11/18 04:05 Hct 35.0 % (35.3-44.9) L 12/11/18 04:05 MCHC 30.0 g/dL (31.6-35.5) L 12/11/18 04:05 RDW 18.9 % (11.5-14.5) H 12/11/18 04:05 Plt Count 101 K/mcL (140-400) L 12/11/18 04:05 MPV 12.6 fL (9.4-12.4) H 12/11/18 04:05 Band Neutrophils % 10.0 % (0-4) H 12/10/18 04:09 Metamyelocytes % 2.0 % (0) H 12/11/18 04:05 Myelocytes % 2.0 % (0) H 12/11/18 04:05 Neutrophils # 14.0 K/mcL (1.6-8.9) H 12/11/18 04:05 Monocytes # 1.4 K/mcL (0.0-1.3) H 12/10/18 04:09 Eosinophils # 1.1 K/mcL (0.0-0.6) H 12/11/18 04:05 Nucleated RBCs/100 WBC 0.3 /100 WBC (0) H 12/11/18 04:05 Smudge Cells Present (Not Present) A 12/08/18 03:47 Platelet Estimate Decreased (Normal) L 12/11/18 04:05 Large Platelets Present (Not Present) A 12/07/18 03:41 Immature Plt Fraction 12.9 % (1.1-6.1) H 12/07/18 03:41 Polychromasia 1+ (Not Present) A 12/11/18 04:05 Hypochromasia Present (Not Present) A 12/11/18 04:05 Anisocytosis 1+ (Not Present) A 12/11/18 04:05 PT 13.7 Seconds (9.4-12.1) H 12/03/18 11:55 APTT 36.4 Seconds (26.0-36.0) H 12/01/18 03:19 Heparin Anti-Xa, Unfract 0.84 IU/mL (0.30-0.70) H 12/11/18 04:05 ABG pH 7.16 pH Units (7.32-7.45) L* 12/03/18 06:23 ABG pCO2 49 mmHg (35-45) H 12/06/18 04:57 ABG pO2 80 mmHg (85-104) L 12/10/18 04:52 ABG HCO3 28 mEq/L (21-27) H 12/05/18 04:22 ABG Total CO2 28 mEq/L (20-26) H 12/10/18 04:52 ABG O2 Saturation 94 % (95-98) L 12/09/18 04:36 ABG Base Excess -9 mEq/L (-2 to 3) L 12/03/18 06:23 Sodium 133 mEq/L (136-145) L 12/11/18 04:05 Chloride 111 mEq/L (98-107) H 12/02/18 04:21 Carbon Dioxide 19 mEq/L (23-29) L 12/03/18 04:00 BUN 28 mg/dL (8-23) H 12/04/18 04:27 Creatinine 1.26 mg/dL (0.60-1.20) H 12/05/18 03:40 Est GFR ( Amer) 56 (> 60) L 12/06/18 03:20 Est GFR (Non-Af Amer) 54 (> 60) L 12/11/18 04:05 Glucose 198 mg/dL (70-105) H 12/11/18 04:05 POC Glucose 188 mg/dL (70-99) H 12/11/18 00:41 Hemoglobin A1c 8.6 % (-5.6) H 12/01/18 03:19 Calculated Osmolality 279 (280-300) L 12/09/18 03:39 Calcium 8.2 mg/dL (8.6-10.3) L 12/11/18 04:05 Phosphorus 2.6 mg/dL (2.7-4.5) L 12/06/18 03:20 Magnesium 1.4 mg/dL (1.6-2.6) L 12/02/18 04:21 Total Bilirubin 1.1 mg/dL (0.3-1.0) H 12/09/18 03:39 Direct Bilirubin 0.6 mg/dL (0.0-0.2) H 12/09/18 03:39 Serum Total Protein 5.5 g/dL (6.4-8.9) L 12/09/18 03:39 Albumin 2.3 g/dL (3.5-5.7) L 12/09/18 03:39 Albumin/Globulin Ratio 0.7 (1.1-2.2) L 12/09/18 03:39 Prealbumin 3.4 mg/dL (17.0-34.0) L 12/03/18 04:00 HDL Cholesterol 22 mg/dL (40-59) L 12/01/18 03:19 Urine Clarity Cloudy (Clear) A 12/01/18 04:23 Urine Blood Moderate (Negative) H 12/01/18 04:23 Urine Nitrite Positive (Negative) A 12/01/18 04:23 Ur Leukocyte Esterase Large (Negative) H 12/01/18 04:23 Urine Microscopic WBC 3-5 per hpf (0-3) H 12/01/18 04:23 Ur Squamous Epith Cells Many per lpf (None-Few) H 12/01/18 04:23 Urine Bacteria Moderate per hpf (None-Few) H 12/01/18 04:23 E. coli (PCR) DETECTED (Not Detect) A 12/01/18 03:50 - Microbiology Findings Microbiology Findings: Microbiology, Last 48 Hours 12/08/18 12:15 Sputum Culture - Preliminary Sputum - Clinical Findings Intake & Output: Intake & Output 12/10/18 12/11/18 12/11/18 23:59 07:59 15:59 Intake Total 895 / 2440.3 713 / 808 95 / 808 Output Total 1756 / 4265 985 / 1111 126 / 1111 Balance -861 / -1824.7 -272 / -303 -31 / -303 - Attending Attestation I examined this patient and my medical decision-making was reviewed with the Resident Physician. I agree with the documented findings, disposition and treatment plan as described except to the extent set forth below. We independently had [id number] contact with the patient I spent 32 min of Critical Care time with this patient. It involved decision making of high complexity to assess, manipulate, and support vital organ system failure and/or to prevent further life threatening deterioration of the patient's condition. The time involved in the performance of separately reportable procedures was not counted toward critical care time. Patient seen and examined at bedside Labs, radiology, chart personally reviewed. Management was reviewed during multidisciplinary critical care rounds. 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 today but able to follow some simple commands she is more awake we will continue to hold sedation for goal Collins around 2-3 Pulm: Acute hypoxic respiratory failure acceptable gas exchange today we will consider spontaneous breathing trial based upon mental status Cards: Remains hypotensive requiring as low dose of vasopressor and has persistent atrial fibrillation but heart rate is better controlled today GI: GI prophylaxis given continue bowel regimen Nutrition: Enteral nutrition per dietary recommendations Renal: Acute kidney injury has put out a little more urine over the last 24 hours but 100 mL and that is encouraging she will likely require persistent hemodialysis for the for Cipro future but can likely switch from continuous to intermittent we will discuss with nephrology UOP Monitored, Cont to Trend sCr and monitor Electrolytes. ID: Persistent leukocytosis with obstructive infected renal calculus I will discuss again with neurology about utility of surgical options given persistent leukocytosis and concern for ongoing sepsis and this could be a nidus of infection Heme/Onc: DVT prophylaxis given Endo: Glucose Monitored Integ/MSK: Skin Care per routine ICU Nursing Protocol to prevent ulcers. Lines: All lines examined without evidence of infection : Dispo: Monitor in ICU for critical illness CODE: DNAR plan for family meeting today to update her brothers who are the healthcare power of associate attorney's.
[2018-12-11] MEDS: Chlorhexidine Rinse 15 ML MOUTHWASH MM SCH ×2 (08:08→20:10)
[2018-12-11] MEDS: Docusate Oral Soln 100 MG/10 ML UDC PO SCH ×2 (08:08→20:10)
[2018-12-11] MEDS: *HR* Amiodarone 200 MG TABLET PO SCH (08:09)
[2018-12-11] MEDS: Cefepime HCl 1,000 MG in Water for inj. (sterile) 10 ML IVP SCH ×3 (08:09→23:16)
[2018-12-11] MEDS: Pantoprazole 40 MG VIAL IVP SCH (08:09)
[2018-12-11] MEDS: Bisacodyl 10 MG RECTAL SUPPOSITORY RC SCH (08:10)
[2018-12-11] MEDS: Budesonide/Formoterol 160/4.5 1 PUFF INH IH SCH ×2 (09:17→21:15)
--- NOTE | 2018-12-11 10:39 | Nephrology Progress Note ---
Date of Encounter: 12/10/18 Time of Encounter: 12:00 - Assessment and Plan (1) Acute and chronic respiratory failure with hypoxia Current Visit: Yes Status: Acute Vent management per primary team (2) Acute kidney injury superimposed on CKD Current Visit: Yes Status: Acute Continue CVVHDF as prescribed with UF at 0cc/hr with goal of tapering pressor support Continue to limit obligate fluids if possible Continue to avoid nephrotoxins if possible UOP remains poor hence no signs of renal recovery yet (3) Sepsis Current Visit: Yes Status: Acute Antibiotics as per primary with renal dosing. Qualifiers: Sepsis type: sepsis due to unspecified organism Qualified Code(s): A41.9 - Sepsis, unspecified organism; R65.20 - Severe sepsis without septic shock (4) Hydronephrosis Current Visit: Yes Status: Acute per urology, previously seen Qualifiers: Hydronephrosis type: with ureteral calculous obstruction Qualified Code(s): N13.2 - Hydronephrosis with renal and ureteral calculous obstruction Subjective Principal diagnosis: RANCHO Interval history: Pt seen and examined remains intubated on CRRT, unchanged in status per nurse but still on pressor support and now off cardizem gtt Objective - Vital Signs Vital signs: Vital Signs Temp Pulse Resp BP Pulse Ox 12/11/18 10:00 67 22 81/60 94 12/11/18 09:13 23 107/49 96 12/11/18 09:00 64 21 107/49 97 12/11/18 08:00 97.3 F L 66 23 114/79 100 12/11/18 07:33 18 109/68 100 12/11/18 07:00 68 18 117/69 99 12/11/18 06:00 68 19 120/61 99 12/11/18 05:23 18 99 12/11/18 05:00 70 16 110/66 100 12/11/18 04:00 67 19 119/98 100 12/11/18 03:46 98.6 F 68 21 116/65 80 12/11/18 03:40 23 91 12/11/18 03:00 66 16 108/62 99 12/11/18 02:00 86 21 104/55 98 12/11/18 01:04 17 100 12/11/18 01:00 72 20 98/54 100 12/11/18 00:00 72 20 86/50 100 12/10/18 23:09 24 82/44 95 12/10/18 23:00 85 18 82/44 100 12/10/18 22:00 80 23 80/55 91 12/10/18 21:11 16 127/65 100 12/10/18 21:00 75 17 127/65 100 12/10/18 20:37 73 12/10/18 20:00 98.5 F 70 19 132/66 99 12/10/18 19:31 22 134/60 100 12/10/18 19:00 82 20 116/61 99 12/10/18 18:00 71 19 89/62 99 12/10/18 17:18 17 106/53 100 12/10/18 17:00 77 19 107/56 100 12/10/18 16:00 97.8 F 76 19 94/52 99 12/10/18 15:14 15 104/56 98 12/10/18 15:00 78 19 114/52 99 12/10/18 14:00 88 18 104/57 98 12/10/18 13:30 19 115/46 99 12/10/18 13:00 84 19 101/48 98 12/10/18 12:00 98.8 F 88 19 91/47 97 12/10/18 11:22 17 104/52 98 12/10/18 11:00 79 19 111/53 99 Intake and Output 12/10/18 12/11/18 12/11/18 23:59 07:59 15:59 Intake Total 895 / 2440.3 713 / 883 170 / 883 Output Total 1756 / 4265 985 / 1533 548 / 1533 Balance -861 / -1824.7 -272 / -650 -378 / -650 Intake: IV Fluids 595 / 1590.3 568 / 568 PrismaSATE BGK 4/2.5 5,000 ML @ 0 / 0 0 / 0 1000 mls/hr CRRT CONT MEGA Rx#: [id number] Precedex Premix 400 mcg In 100 100 / 274.0 213 / 213 ml @ 0.2 MCG/KG/HR 6.31 mls/hr IVC .[id number] MEGA Rx#:[id number] Heparin 25,000 UNIT/250 ML D5W 250 / 500.0 100 / 100 25,000 unit In 250 ml @ 14 UNIT /KG/HR 15.414 mls/hr IVC . [id number] MEGA Rx#:[id number] Phenylephrine 50 MG In Dextrose 225 / 448.0 255 / 255 5% 250 ML @ 100 MCG/MIN 30.6 mls/hr IVC CONT MEGA Rx#: [id number] Maxipime 1,000 MG In Water for 20 / 30 inj. (sterile) 10 ML @ 300 mls/ hr IVP Q8HR MEGA Rx#:[id number] Tube Feeding 150 / 387 145 / 165 20 / 165 Free Water 150 / 388 75 / 75 Free Water Intake Amount 75 / 75 Output: Camryn 853 / 1923 543 / 788 245 / 788 Catheter 50 / 96 90 / 148 58 / 148 Fluid Removed by Prismaflex 853 / 2246 352 / 597 245 / 597 Other: Blood Glucose* 245 183 - General Appearance General appearance: Present: sedated on ventilator, intubated EENT: Present: ATNC, mucous membranes moist Neck: Present: no JVD, supple Respiratory: Present: course breath sounds Cardiology: Present: edema (improved), normal S1, normal S2 Gastrointestinal: Present: no tenderness, no guarding, obese Integumentary: Present: warm and dry Additional Comments: sedated, non response in general Musculoskeletal: Present: no deformities Additional Comments: sedated - Lab 12/11/18 04:05 12/11/18 04:05 Most recent lab results 12/11/18 12/11/18 04:05 04:50 ABG pH 7.39 ABG pCO2 40 ABG pO2 91 ABG HCO3 25 ABG O2 Saturation 97 Calcium 8.2 L Consult Discharge Plan - Plan Referrals: Kelly Cardozo RN [Primary Care Provider] -
--- NOTE | 2018-12-11 11:12 | Nephrology Progress Note ---
Date of Encounter: 12/11/18 Time of Encounter: 11:09 - Assessment and Plan (1) Sepsis Current Visit: Yes Status: Acute Antibiotics as per primary with renal dosing. Qualifiers: Sepsis type: sepsis due to unspecified organism Qualified Code(s): A41.9 - Sepsis, unspecified organism; R65.20 - Severe sepsis without septic shock (2) Acute and chronic respiratory failure with hypoxia Current Visit: Yes Status: Acute Vent management per primary team (3) Hydronephrosis Current Visit: Yes Status: Acute per urology, previously seen Qualifiers: Hydronephrosis type: with ureteral calculous obstruction Qualified Code(s): N13.2 - Hydronephrosis with renal and ureteral calculous obstruction (4) Acute kidney injury superimposed on CKD Current Visit: Yes Status: Acute Patient with multifactorial acute kidney injury and is currently dialysis dependent. She remains on continuous dialysis and seems to be doing well. Her electrolytes have been normalized. Continue CVVHDF as prescribed with UF at 0-50cc/hr still with goal of tapering pressor support Continue to limit obligate fluids if possible Continue to avoid nephrotoxins if possible UOP remains poor hence no signs of renal recovery yet Subjective Principal diagnosis: RANCHO Interval history: Patient seen and evaluated. She remains intubated and sedated. Review of systems is unobtainable. Objective - Vital Signs Vital signs: Vital Signs Temp Pulse Resp BP Pulse Ox 12/11/18 10:00 67 22 81/60 94 12/11/18 09:13 23 107/49 96 12/11/18 09:00 64 21 107/49 97 12/11/18 08:00 97.3 F L 66 23 114/79 100 12/11/18 07:33 18 109/68 100 12/11/18 07:00 68 18 117/69 99 12/11/18 06:00 68 19 120/61 99 12/11/18 05:23 18 99 12/11/18 05:00 70 16 110/66 100 12/11/18 04:00 67 19 119/98 100 12/11/18 03:46 98.6 F 68 21 116/65 80 12/11/18 03:40 23 91 12/11/18 03:00 66 16 108/62 99 12/11/18 02:00 86 21 104/55 98 12/11/18 01:04 17 100 12/11/18 01:00 72 20 98/54 100 12/11/18 00:00 72 20 86/50 100 12/10/18 23:09 24 82/44 95 12/10/18 23:00 85 18 82/44 100 12/10/18 22:00 80 23 80/55 91 12/10/18 21:11 16 127/65 100 12/10/18 21:00 75 17 127/65 100 12/10/18 20:37 73 12/10/18 20:00 98.5 F 70 19 132/66 99 12/10/18 19:31 22 134/60 100 12/10/18 19:00 82 20 116/61 99 12/10/18 18:00 71 19 89/62 99 12/10/18 17:18 17 106/53 100 12/10/18 17:00 77 19 107/56 100 12/10/18 16:00 97.8 F 76 19 94/52 99 12/10/18 15:14 15 104/56 98 12/10/18 15:00 78 19 114/52 99 12/10/18 14:00 88 18 104/57 98 12/10/18 13:30 19 115/46 99 12/10/18 13:00 84 19 101/48 98 12/10/18 12:00 98.8 F 88 19 91/47 97 12/10/18 11:22 17 104/52 98 Intake and Output 12/10/18 12/11/18 12/11/18 23:59 07:59 15:59 Intake Total 895 / 2440.3 713 / 883 170 / 883 Output Total 1756 / 4265 985 / 1533 548 / 1533 Balance -861 / -1824.7 -272 / -650 -378 / -650 Intake: IV Fluids 595 / 1590.3 568 / 568 PrismaSATE BGK 4/2.5 5,000 ML @ 0 / 0 0 / 0 1000 mls/hr CRRT CONT MEGA Rx#: [id number] Precedex Premix 400 mcg In 100 100 / 274.0 213 / 213 ml @ 0.2 MCG/KG/HR 6.31 mls/hr IVC .[id number] MEGA Rx#:[id number] Heparin 25,000 UNIT/250 ML D5W 250 / 500.0 100 / 100 25,000 unit In 250 ml @ 14 UNIT /KG/HR 15.414 mls/hr IVC . [id number] MEGA Rx#:[id number] Phenylephrine 50 MG In Dextrose 225 / 448.0 255 / 255 5% 250 ML @ 100 MCG/MIN 30.6 mls/hr IVC CONT MEGA Rx#: [id number] Maxipime 1,000 MG In Water for 20 / 30 inj. (sterile) 10 ML @ 300 mls/ hr IVP Q8HR MEGA Rx#:[id number] Tube Feeding 150 / 387 145 / 165 20 / 165 Free Water 150 / 388 75 / 75 Free Water Intake Amount 75 / 75 Output: Camryn 853 / 1923 543 / 788 245 / 788 Catheter 50 / 96 90 / 148 58 / 148 Fluid Removed by Prismaflex 853 / 2246 352 / 597 245 / 597 Other: Blood Glucose* 245 183 - General Appearance General appearance: Present: well-developed, well-nourished, obese EENT: Present: ATNC Neck: Present: supple Respiratory: Present: course breath sounds Cardiology: Present: edema, regular rate Additional Comments: She is a right below-knee hypertension. Dialysis Vascular Access: Venous Catheter Gastrointestinal: Present: no tenderness, obese Integumentary: Present: warm and dry Additional Comments: She is intubated. She does open her eyes to command. Musculoskeletal: Present: no cyanosis Additional Comments: She is intubated. This is unobtainable. - Lab 12/11/18 04:05 12/11/18 04:05 Most recent lab results 12/11/18 12/11/18 04:05 04:50 ABG pH 7.39 ABG pCO2 40 ABG pO2 91 ABG HCO3 25 ABG O2 Saturation 97 Calcium 8.2 L Consult Discharge Plan - Plan Referrals: Kelly Cardozo RN [Primary Care Provider] -
[2018-12-11] MEDS: Lactulose Oral Soln 20 GM/30 ML UDC PO SCH ×2 (12:00→20:10)
[2018-12-11 12:40] LABS: Bilirubin,Urine Negative (Negative); Blood,Urine Large (Negative); Clarity,Urine Cloudy (Clear); Color,Urine Dark Yellow (Yellow); Glucose,Urine (UA) Normal (Normal); Ketones,Urine Negative (Negative); Leukocyte Esterase,Urine Large (Negative); Nitrite,Urine Negative (Negative); Protein,Urine 100 mg/dL (Neg-Trace); Specific Gravity,Urine 1.016 (1.010-1.025); Urobilinogen,Urine Normal (Normal)
[2018-12-11 12:44] LABS: Hyaline Casts,Urine None Seen per lpf (None-Few); Squamous Epithelial Cell,Urine None Seen per lpf (None-Few); WBC,Urine 30-50 per hpf (0-3)
[2018-12-11 12:55] LABS: Bacteria,Urine Few per hpf (None-Few); RBC,Urine 30-50 per hpf (0-3)
--- NOTE | 2018-12-11 13:08 | Infectious Disease Consult ---
Infectious Disease-Consult - Encounter Date/Time Date of Encounter: 12/11/18 Time of Encounter: 11:30 - Data of Consult Reason for consult: Persistent leukocytosis. Assist with determining source. Consult date: 12/11/18 Requesting Physician: Colton Lofton MD Primary Care Provider: Kelly Cardozo - [facility] HPI: Ms Ness is a 63F who was admitted overnight on 11/30/18 for complaints of altered mental status, nausea, vomiting, and diarrhea. The infectious disease team was consulted on 12/11/18 for persistent leukocytosis and assistance with determining etiology of the persistent leukocytosis. When Ms Ness initially presented to the ED on 11/30/18, she was evaluated for complaints of altered mental status, nausea, vomiting, and diarrhea. Vitals on presentation as follows: Temp 98.5 HR 106 RR 15 BP 101/67 SpO2 93% on 2lpm O2 via NC Labs were significant for leukocytosis of 30.8, elevated Creatinine of 2.40, and hyperglycemia of 201. Urinalysis demonstrated moderate blood, positive nitrites, large leukocyte esterase, and moderate bacteria. An ABG demonstrated acidosis with 7.27, pCO2 39, pO2 70, and bicarb 18. CXR from [place] [facility] showed cardiomegaly and central vascular congestion without overt failure, and no focal infiltrate. CT abdomen/pelvis from [place] [facility] demonstrated left hydronephrosis 2/2 calculus at the left ureterovesical junction, with additional left nephrolithiasis, as well as stable upper abdominal lymphadenopathy. The patient was subsequently transferred to our facility for urology consult. Early on the morning of 12/01 Dr Salguero took the pt to the OR for cystoscopy, left retrograde pyelogram and JJ stent placement. During this procedure there was noted purulence proximal to the stone during stent placement. The patient was empirically treated with IV Cefepime. Urine culture from 12/01/18 grew E coli resistant to Cipro and Levaquin. Blood cultures x2 from 12/01/18 were positive for E coli resistant to Ampicillin and Levaquin. A biopsy of the left kidney was obtained on 12/01/18 which ultimately grew E coli resistant to Ampicillin, Cipro, and Levaquin , Proteus mirabilis resistant to Cipro, Gentamicin, Nitrofurantoin, Levaquin, and Bactrim. Blood cultures x2 from 12/02 showed no growth. Sputum culture from 12/08 is pending at this time with normal respiratory chantel and no isolated pathogens. During admission the patient did require CVC placement for septic shock and blood pressure support. A right subclavian CVC was placed by Dr Alejandro on 12/01. On 12/03 a right IJ temporary HD catheter was place and CRRT was initiated per recommendations from nephrology. Leukocytosis had resolved on 12/05, but returned the following day and has been persistently elevated since. IV Vancomycin was initiated on 12/08 to broaden Gram positive coverage. The patient has continued to require ventilator support for respiratory failure, as well as CRRT for RANCHO on CKD with anuria. Urology recommended ureteral stone removal, but decided to defer until patient is more hemodynamically stable. The infectious disease team was consulted for assistance with determining the etiology of the persistent arden kocytosis. Pt seen and examined at bedside. Remains intubated and sedated. - ROS Review of Systems: 10 point review of systems not able to be obtained due to intubation - Results CBC & Chem 7: 12/21/18 03:28 12/21/18 03:28 - Line Documentation Line Documentation: Dialysis Catheter (right IJ ), Lama Catheter, Triple Lumen Central Line (right subclavian ) - Exam Vitals: Temp Pulse Resp BP Pulse Ox 97.5 F L 74 23 86/50 96 12/11/18 12:00 12/11/18 12:00 12/11/18 12:00 12/11/18 12:00 12/11/18 12:00 Exam: General: obese female, intubated and sedated Head: NCAT Eyes: PERRL. sclera anicteric Neck: soft, trachea midline Lungs: grossly diminished breath sounds Heart: Irregularly irregular +s1 +s2 No murmurs, clicks, or rubs appreciated GI: abdomen obese, soft. Extremities: radial pulses palpable and symmetrical. Right BKA. Left toe amputations. No cyanosis. Neuro: follows commands. Unable to completely assess due to ET tube Skin: cool. dry. intact. no lesions or erythema noted. Right IJ temp dialysis cath. Right subclavian CVC present. Acetaminophen [Tylenol] 1,000 mg PO Q6HR PRN 11/30/18 [History] Cholecalciferol (Vitamin D3) [Vitamin D] 1,000 unit PO DAILY 11/30/18 [History] Clopidogrel Bisulfate [Plavix] 75 mg PO DAILY 11/30/18 [History] Duloxetine HCl [Cymbalta] 60 mg PO DAILY 11/30/18 [History] Gabapentin [Neurontin] 1,200 mg PO TID 11/30/18 [History] Insulin ASPART [Novolog] 18 - 32 unit SQ TID 11/30/18 [History] Liraglutide [Victoza 2-Zaid] 1.2 mg SQ DAILY 11/30/18 [History] Loratadine [Claritin] 10 mg PO DAILY 11/30/18 [History] Metoprolol [Lopressor] 150 mg PO BID 11/30/18 [History] Multivitamin,Stress Formula [Stress Formula] 1 each PO DAILY 11/30/18 [History] Rivaroxaban [Xarelto] 15 mg PO 1700 11/30/18 [History] Spironolactone [Aldactone] 25 mg PO DAILY 11/30/18 [History] Umeclidinium [place] [Incruse Ellipta] 1 puff IH DAILY 11/30/18 [History] amLODIPine [Norvasc] 5 mg PO DAILY 11/30/18 [History] Albuterol Sulfate [Ventolin Hfa] 2 puff IH BID 12/02/18 [History] Atorvastatin [Lipitor] 10 mg PO HS 12/02/18 [History] Fluticasone Propionate Nasal [Flonase] 1 spray NS DAILY 12/02/18 [History] Fluticasone/Salmeterol [Advair 250-50 Diskus] 1 puff IH BID 12/02/18 [History] Fluticasone/Vilanterol [Breo Ellipta 100-25 Mcg INH] 1 puff IH DAILY 12/02/18 [History] Furosemide [Lasix] 60 mg PO BID 12/02/18 [History] Insulin Glargine,Hum.rec.anlog [Basaglar Kwikpen U-100] 36 unit SQ BID 12/02/18 [History] Potassium Chloride [Klor-Con 10] 30 meq PO DAILY 12/02/18 [History] Sertraline [Zoloft] 75 mg PO DAILY 12/02/18 [History] Vitamin B Complex/Vit C/Vit E [Stresstab] 1 tab PO DAILY 12/02/18 [History] Allergy/AdvReac Type Severity Reaction Status Date / Time codeine Allergy See Verified 11/30/18 17:25 Comments latex Allergy See Verified 11/30/18 17:25 Comments Paroxetine [From Paxil] Allergy See Verified 11/30/18 17:25 Comments Penicillins Allergy See Verified 11/30/18 17:25 Comments - Assessment and Plan (1) Severe sepsis Current Visit: Yes Status: Resolved Shortly after presentation to [facility], met 4/4 SIRS criteria with temp of 101.7, HR 128, RR 22, and WBC 30.8 Likely 2/2 pyelonephritis/UTI vs bacteremia vs unknown source Received IV fluids but remained hypotensive - required Levophed for blood pressure support Currently on day 11 of IV Cefepime 1g q8hr Currently on day 4 of IV Vancomycin SNOMED Code(s): 94210643 (2) E coli bacteremia Current Visit: Yes Status: Resolved Blood cultures x2 from 12/01 grew E coli resistant to Ampicillin and Levaquin Repeated blood cultures x2 from 12/02 had no growth Source from urine SNOMED Code(s): 763323573413 (3) UTI (urinary tract infection) Current Visit: Yes Status: Resolved UTI/Pyelonephritis Urinalysis on 12/01/18 was positive for moderate blood, positive nitrites, large leukocyte esterase, and moderate bacteria CT abdomen and pelvis showed obstructing calculus with hydronephrosis Underwent JJ stent placemet with Dr Salguero on 12/01 Urine culture from 12/01/18 grew E coli resistant to Cipro and Levaquin Left kidney biopsy from 12/01/18 grew E coli resistant to Ampicillin, Cipro, and Levaquin , Proteus mirabilis resistant to Cipro, Gentamicin, Nitrofurantoin, Levaquin, and Bactrim, as well as lactobacillus Pt has been receiving IV Cefepime since 12/01 Qualifiers: Urinary tract infection type: acute pyelonephritis Qualified Code(s): N10 - Acute pyelonephritis SNOMED Code(s): 43180114 (4) Acute respiratory failure Current Visit: Yes Status: Acute Has remained intubated and sedated since 12/01 Etiology likely pulmonary edema vs unknown Cpap trial today per pulm/critical care Qualifiers: Respiratory failure complication: unspecified whether with hypoxia or hypercapnia Qualified Code(s): J96.00 - Acute respiratory failure, unspecified whether with hypoxia or hypercapnia SNOMED Code(s): 72006620 (5) Acute kidney injury superimposed on CKD Current Visit: Yes Status: Acute Has hx of CKD 2/2 DM2 and HTN RANCHO superimposed on this Etiology mixed between pre-renal with sepsis and post-obstructive with stone Continues to require CRRT Anuric Nephrology following SNOMED Code(s): 81467360 (6) Leukocytosis Current Visit: Yes Status: Resolved Initially improved from admission, but returned and has remained persistent since 12/06 Etiology unclear at this time - ?infectious vs inflammatory vs other Currently receiving IV Cefepime (day 11) and IV Vancomycin (day 4) Qualifiers: Leukocytosis type: unspecified Qualified Code(s): D72.829 - Elevated white blood cell count, unspecified SNOMED Code(s): 760006099, 472312077 (7) Diabetes mellitus Current Visit: Yes Status: Chronic Hx of DM2 complicated by PAD with right BKA and left TMA SSI q4hr per primary team Qualifiers: Diabetes mellitus type: type 2 Diabetes mellitus retirement insulin use: with retirement use Diabetes mellitus complication status: with skin complications Diabetes mellitus complication detail: with foot ulcer Qualified Code(s): E11.621 - Type 2 diabetes mellitus with foot ulcer; L97.509 - Non-pressure chronic ulcer of other part of unspecified foot with unspecified severity; 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 SNOMED Code(s): 34174708 (8) COPD (chronic obstructive pulmonary disease) Current Visit: Yes Status: Chronic Qualifiers: COPD type: unspecified COPD Qualified Code(s): J44.9 - Chronic obstructive pulmonary disease, unspecified SNOMED Code(s): 12957277 (9) Atrial fibrillation Current Visit: Yes Status: Chronic Qualifiers: Atrial fibrillation type: chronic Qualified Code(s): I48.2 - Chronic atrial fibrillation SNOMED Code(s): 99021816 (10) Ileus Current Visit: Yes Status: Resolved pt has not had bowel movement in many days Bowel regimen initiated per primary team SNOMED Code(s): 944934909 - Recommendations Recommendations: Recommend further workup for etiology of persistent leukocytosis 1. obtain HSV PCR, sputum culture, urine strep antigen, and repeat blood cultures to evaluate for other possible sources of infection 2. Recommend re-image with CT abdomen/pelvis with oral contrast, and CT chest 3. Recommend continuing current antibiotic regimen at this time with IV Vancomycin and IV Cefepime. May consider broadening coverage to include anaerobes after imaging and cultures are completed Past Med Surg Social Fam HX - Past Medical History Medical history: diabetes, renal disease, atrial fibrillation, hyperlipidemia, arthritis, hypertension, pulmonary embolus, other, coronary artery disease, COPD, DVT Additional medical history: R BKA. Vit D Deficiency. Left foot digits amputated Psychiatric history: anxiety, depression - Past Surgical History Surgical History: other Additional surgical history: Left TMA, right BKA - Social History Smoking Status: Current every day smoker Smokeless Tobacco Status: No Alcohol use: none Drug use: none - Family History Mother Family Member Ethnicity: Non- Twin of Family Member: Yes, Identical Living Status: Hx Family Cardiac Disorders: Yes Hx Family Respiratory Disorders: No Hx Family Cancer: Yes (aunt) Hx Family GI Disorders: Yes Hx Family Endocrine Disorder: Yes Hx Family Neurologic Disorders: Yes Hx Family HEENT Disorders: No Hx Family Autoimmune Disorders: No Father Living Status: Hx Family Cardiac Disorders: Yes Hx Family Endocrine Disorder: Yes (diabetes) Brother Living Status: Hx Family Endocrine Disorder: Yes (diabetes) Consult Discharge Plan - Plan Referrals: Kelly Cardozo RN [Primary Care Provider] - - Attending Attestation I examined this patient and my medical decision-making was reviewed with the Resident Physician. I agree with the documented findings, disposition and treatment plan as described except to the extent set forth below. Patient underwent 12/01: cystoscopy. left retrograde pyelogram and JJ stent placement cultures + proteus R: ampicillin, cipro, bactrim, nitrofurantoin, gentamicin and E coli R: Ampicillin, cipro, levofloxacin patient was treated with cefepime 12/01-today (12/11) post op Respiraotry failure and unable to ween off the ventilator. Patient also had RANCHO likely secondary to multifactorial (prerenal and post renal etc.) currently on CRRT Currently patient afebrile, no tachycardia, but is tachypnea on cpap trial today's labs WBC 18.9 with bandemia yesterday blood cultures from 12/01 + E coli no repeat blood cultures obtained urine and sputum culture obtained on 12/11 and 12/08 respectively no growth to date Assessment and Plan: 1. Severe sepsis 2. E coli bacteremia 06/13 sets 12/01 source urine 3. pyelonephritis/UTI with proteus R: ampicillin, cipro, bactrim, nitrofurantoin, gentamicin and E coli R: Ampicillin, cipro, levofloxacin and lactobacillus 4. Acute Respiratory failure secondary to pulmolnary Edema vs ??? 5. RANCHO on CKD requiring CRRT secondary to 6. persistent leukocytosis - etiolgoy? infectious vs inflammatory vs other 7. DM complicated by PAD and right BKA and Left transmetatarsal amputation 8. COPD 9. Ileus no Recommendations: HSV PCR; sputum culture; Urine Antigens, peripheral smear, blood culture CT abdomen and pelvis with oral contrast CT chest continue cefepime and vanc for now, consider anaerobic coverage once CT's and cultures are back
[2018-12-11] MEDS ORDERED: Potassium Chloride Elixir 20 MEQ/15 ML UDC PO ONE (16:05)
[2018-12-12] MEDS: Dexmedetomidine HCl 400 MCG/100 ML MLS IVC SCH ×2 (01:10→05:37)
[2018-12-12] MEDS: PrismaSATE BGK 4/2.5 5,000 ML CRRT SCH ×4 (01:12→05:37)
[2018-12-12] MEDS: Levalbuterol Neb 1.25 MG/3 ML IH SCH ×4 (03:22→21:50)
[2018-12-12] MEDS: Artificial Tears SOLN 15 ML BOTTLE BOTH EYES SCH ×6 (03:52→23:07)
[2018-12-12] MEDS: Insulin LISPRO 300 UNITS/3 ML VIAL SQ SCH ×6 (03:52→23:10)
[2018-12-12 04:01] LABS: Nucleated Red Blood Cells 0.2 /100 WBC (0)
[2018-12-12 04:03] LABS: Hemoglobin 9.7 g/dL (11.5-15.4); Immature Platelets 16.2 % (1.1-6.1); Mean Corpuscular HGB Conc 30.3 g/dL (31.6-35.5); Mean Corpuscular Hemoglobin 28.7 pg (28.0-33.3); Mean Corpuscular Volume 94.7 fL (83.0-100.0); Red Blood Count 3.38 M/mcL (3.82-4.97); White Blood Count 10.8 K/mcL (4.3-11.1)
[2018-12-12 04:15] LABS: Platelet Count 80 K/mcL (140-400)
[2018-12-12 04:17] LABS: BUN/Creatinine Ratio 11 (6-26); Blood Urea Nitrogen 10 mg/dL (8-23); Calcium 8.1 mg/dL (8.6-10.3); Carbon Dioxide 25 mEq/L (23-29); Chloride 101 mEq/L (98-107); Glucose 221 mg/dL (70-105); Osmolality,Calculated 288 (280-300); Potassium 3.7 mEq/L (3.5-5.1); Sodium 136 mEq/L (136-145); eGFR For African Americans > 60 (> 60); eGFR For Non-African Americans > 60 (> 60)
[2018-12-12 04:47] LABS: Eosinophils # 0.4 K/mcL (0.0-0.6); Lymphocytes # 1.7 K/mcL (0.6-4.6); Monocytes # 0.2 K/mcL (0.0-1.3); Neutrophils # 8.2 K/mcL (1.6-8.9)
[2018-12-12 04:48] LABS: Anisocytosis 1+ (Not Present); Platelet Estimate Decreased (Normal); Polychromasia 2+ (Not Present)
--- NOTE | 2018-12-12 06:48 | Pulmonology Progress Note ---
Date of Encounter: 12/12/18 Time of Encounter: 06:47 Assessment and Plan (1) Acute and chronic respiratory failure with hypoxia Current Visit: Yes Status: Acute Patient seen and examined at bedside Labs, radiology, chart personally reviewed. Management was reviewed during multidisciplinary critical care rounds. Below reflects systems basis assessment and plan for this complex patient intubated in the ICU. PHYSICIAN PRACTICE MANAGER: Patient has suffered from a metabolic encephalopathy for several days I suspect some degree of underlying hypoactive delirium but level of agitation is markedly decreased over the last 48-72 hours. She did not essentially weaned off all sedation at this point and also not requiring any Precedex. We will focus on orthodox of sleep-wake cycle. avoid sensory deprivation, and avoid PHYSICIAN PRACTICE MANAGER depressant medications as able. Pulm: Acute hypoxic hypercapnic respiratory failure which is improving patient was successfully liberated from the vent today and is tolerating nasal cannula she has underlying COPD and has been treated for COPD exacerbation I do not believe that the current status worsened continue systemic glucocorticoids and they have been stopped we will continue schedule bronchodilators. She is high risk for further deterioration requiring reintubation. Unfortunately she has had a few episodes of emesis which would preclude the use of noninvasive ventilation should this improve over the next 6-12 hours would like to obtain pain patient on positive airway pressure at the very least when she is sleeping. Cards: Shock has resolved she has A. fib heart rate currently controlled. Will continue scheduled beta kiana which has been successful in controlling her heart rate. She has hydrostatic pulmonary edema which has improved after volume removal with LEADITE MAN GI: Several episodes of emesis is unsure if this is related to gagging on the endotracheal tube or not at this point. We will attempt to place NG tube and keep this to low intermittent suction throughout the course the day continue ppi and anti-emetics. There is no evidence of ileus or obstruction she has had several large bowel movements after augmentation of bowel regimen. Nutrition: Currently nothing by mouth postextubation will need bedside speech and swallow eval prior to re-advancement of diet unless NG tube is in which case this can be used for nutrition appreciate dietary evaluation and recommendations Renal: Acute kidney injury requiring LEADITE MAN she remains on CVVH today which is getting to be stopped after this circuit clots. Can switch to intermittent HD as needed she remains oliguric hopefully we will see improvement in renal function in the upcoming days to weeks appreciate nephrology recommendations continue nephro sparing protocol. UOP Monitored, Cont to Trend sCr and monitor Electrolytes. ID: The patient is been treated for Escherichia coli bacteremia secondary to obstructive renal calculus. Urology following he is on broad-spectrum antibiotics white count is normalized been seen by infectious disease repeat byrd scan pending once stable to go. Will need ureteral stent placement once clinically stabilizes and no clear evidence of active infection Heme/Onc: Patient has been on heparin infusion for A. fib and Camryn. Now with Camryn stopping and mild thrombocytopenia today I will hold systemic anticoagulation can start DVT prophylaxis I suspect that the etiology of her thrombocytopenia is critical illness use of Camryn and antimicrobial. There is no evidence of overt hemorrhage continue to monitor closely H&H has been stable. Start DVT prophylaxis. Endo: Glucose Monitored continue bolus dosing of insulin Integ/MSK: Skin Care per routine ICU Nursing Protocol to prevent ulcers. Lines: All lines examined without evidence of infection : Dispo: Monitor in ICU postextubation CODE: DNAR. Extensive conversation with patient's healthcare power of defense attorney is her 2 adult brothers plan is to continue aggressive care at this time and patient has serious decline likely switch to comfort measures based upon her wishes as interpreted by her brothers unless patient can reliablyexpress her wi shes in the interim we will continue to assess this on a daily basis (2) Atrial fibrillation Current Visit: Yes Status: Acute Qualifiers: Atrial fibrillation type: chronic Qualified Code(s): I48.2 - Chronic atrial fibrillation (3) Acute delirium Current Visit: No Status: Acute (4) Ureteral calculi Current Visit: Yes Status: Acute (5) COPD (chronic obstructive pulmonary disease) Current Visit: Yes Status: Chronic Qualifiers: COPD type: unspecified COPD Qualified Code(s): J44.9 - Chronic obstructive pulmonary disease, unspecified (6) Acute kidney injury superimposed on CKD Current Visit: Yes Status: Acute (7) Oliguria Current Visit: Yes Status: Acute (8) Goals of care, counseling/discussion Current Visit: Yes Status: Acute (9) Severe sepsis Current Visit: Yes Status: Acute (10) E coli bacteremia Current Visit: Yes Status: Acute (11) Acute respiratory failure Current Visit: Yes Status: Acute Qualifiers: Respiratory failure complication: hypoxia Qualified Code(s): J96.01 - Acute respiratory failure with hypoxia Subjective Principal diagnosis: Septic Shock Interval history: He continues to convalesce. She has been able to follow commands. Overnight she did have an episode of emesis and had several large-volume bowel movements after augmentation of bowel regimen. She has been weaned off the phenylephrine successfully and heart rate is been controlled she was afebrile. She appears somewhat groggy when I am in the room speaking with her but she denies any complaints she is able to make eye contact with me and not her head yes or no to questioning. She vigorously nodded yes when I asked her if she wanted to have the breathing tube taken out. Objective PUL Vital signs: Last Vital Signs Temp 95.1 F L 12/11/18 20:00 Pulse 76 12/12/18 06:00 Resp 21 12/12/18 06:00 BP 86/53 12/12/18 06:00 Pulse Ox 100 12/12/18 06:00 GEN: She is resting comfortably in the ICU bed endotracheal tube in place there is no evidence of agitated delirium HEENT: Endotracheal tube noticed in satisfactory position neck supple there is some minor crusted blistering of the lips Resp: Bilaterally air entry she has some scattered rhonchi Cardio: Heart rate is irregularly irregular no audible murmur GI: Abdomen is soft nontender hyperactive bowel sounds noted Ext: Trace bilateral lower extremity edema 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 No evolving rash petechiae or purpura noted Neuro: She is able to squeeze my hand to command and move lower extremities there is no asymmetry in government auditor strength pupils are equal round and reactive to light Psych: Appears calm Ventilator Settings Ventilator Settings: Ventilator Settings, Last 8 Hours Ventilator Tidal Volume 500 Setting Ventilator Tidal Volume 500 Setting Ventilator Tidal Volume 500 Setting Ventilator Tidal Volume 500 Setting Ventilator Tidal Volume 500 Setting Ventilator Tidal Volume 500 Setting Ventilator Tidal Volume 500 Setting Ventilator Tidal Volume 500 Setting Ventilator Tidal Volume 500 Setting Ventilator Tidal Volume 500 Setting Ventilator Tidal Volume 500 Setting Ventilator Tidal Volume 500 Setting Ventilator Respiratory Rate 14 Setting Ventilator Respiratory Rate 14 Setting Ventilator Respiratory Rate 14 Setting Ventilator Respiratory Rate 14 Setting Ventilator Respiratory Rate 14 Setting Ventilator Respiratory Rate 14 Setting Ventilator Respiratory Rate 14 Setting Ventilator Respiratory Rate 14 Setting Ventilator Respiratory Rate 14 Setting Ventilator Respiratory Rate 14 Setting Ventilator Respiratory Rate 14 Setting Ventilator Respiratory Rate 14 Setting Actual Respiratory Rate 21 Actual Respiratory Rate 29 Actual Respiratory Rate 21 Actual Respiratory Rate 27 Actual Respiratory Rate 20 Actual Respiratory Rate 22 Actual Respiratory Rate 14 Actual Respiratory Rate 14 Actual Respiratory Rate 14 Actual Respiratory Rate 14 Actual Respiratory Rate 14 Actual Respiratory Rate 16 Positive End Expiratory 5 Pressure Positive End Expiratory 5 Pressure Positive End Expiratory 5 Pressure Positive End Expiratory 5 Pressure Positive End Expiratory 5 Pressure Positive End Expiratory 5 Pressure Positive End Expiratory 5 Pressure Positive End Expiratory 5 Pressure Positive End Expiratory 5 Pressure Positive End Expiratory 5 Pressure Positive End Expiratory 5 Pressure Positive End Expiratory 5 Pressure Peak Inspiratory Airway 31 Pressure Peak Inspiratory Airway 18 Pressure Peak Inspiratory Airway 31 Pressure Peak Inspiratory Airway 31 Pressure Peak Inspiratory Airway 24 Pressure Peak Inspiratory Airway 31 Pressure Peak Inspiratory Airway 31 Pressure Peak Inspiratory Airway 31 Pressure Peak Inspiratory Airway 31 Pressure Peak Inspiratory Airway 31 Pressure Peak Inspiratory Airway 28 Pressure Peak Inspiratory Airway 27 Pressure Results - Laboratory Findings CBC and BMP: 12/12/18 03:34 12/12/18 03:34 ABG ABG pH 7.39 pH Units (7.32-7.45) 12/11/18 04:50 ABG pCO2 40 mmHg (35-45) 12/11/18 04:50 ABG pO2 91 mmHg (85-104) 12/11/18 04:50 ABG O2 Saturation 97 % (95-98) 12/11/18 04:50 PT/INR, D-dimer PT 13.7 Seconds (9.4-12.1) H 12/03/18 11:55 Abnormal lab findings: Abnormal lab results WBC 18.9 K/mcL (4.3-11.1) H 12/11/18 04:05 RBC 3.38 M/mcL (3.82-4.97) L 12/12/18 03:34 Hgb 9.7 g/dL (11.5-15.4) L 12/12/18 03:34 Hct 32.0 % (35.3-44.9) L 12/12/18 03:34 MCHC 30.3 g/dL (31.6-35.5) L 12/12/18 03:34 RDW 19.0 % (11.5-14.5) H 12/12/18 03:34 Plt Count 80 K/mcL (140-400) L 12/12/18 03:34 MPV 13.0 fL (9.4-12.4) H 12/12/18 03:34 Band Neutrophils % 10.0 % (0-4) H 12/12/18 03:34 Metamyelocytes % 2.0 % (0) H 12/11/18 04:05 Myelocytes % 2.0 % (0) H 12/12/18 03:34 Neutrophils # 14.0 K/mcL (1.6-8.9) H 12/11/18 04:05 Monocytes # 1.4 K/mcL (0.0-1.3) H 12/10/18 04:09 Eosinophils # 1.1 K/mcL (0.0-0.6) H 12/11/18 04:05 Nucleated RBCs/100 WBC 0.2 /100 WBC (0) H 12/12/18 03:34 Smudge Cells Present (Not Present) A 12/08/18 03:47 Platelet Estimate Decreased (Normal) L 12/12/18 03:34 Large Platelets Present (Not Present) A 12/07/18 03:41 Immature Plt Fraction 16.2 % (1.1-6.1) H 12/12/18 03:34 Polychromasia 2+ (Not Present) A 12/12/18 03:34 Hypochromasia Present (Not Present) A 12/11/18 04:05 Anisocytosis 1+ (Not Present) A 12/12/18 03:34 PT 13.7 Seconds (9.4-12.1) H 12/03/18 11:55 APTT 36.4 Seconds (26.0-36.0) H 12/01/18 03:19 Heparin Anti-Xa, Unfract 0.84 IU/mL (0.30-0.70) H 12/11/18 04:05 ABG pH 7.16 pH Units (7.32-7.45) L* 12/03/18 06:23 ABG pCO2 49 mmHg (35-45) H 12/06/18 04:57 ABG pO2 80 mmHg (85-104) L 12/10/18 04:52 ABG HCO3 28 mEq/L (21-27) H 12/05/18 04:22 ABG Total CO2 28 mEq/L (20-26) H 12/10/18 04:52 ABG O2 Saturation 94 % (95-98) L 12/09/18 04:36 ABG Base Excess -9 mEq/L (-2 to 3) L 12/03/18 06:23 Sodium 133 mEq/L (136-145) L 12/11/18 04:05 Chloride 111 mEq/L (98-107) H 12/02/18 04:21 Carbon Dioxide 19 mEq/L (23-29) L 12/03/18 04:00 BUN 28 mg/dL (8-23) H 12/04/18 04:27 Creatinine 1.26 mg/dL (0.60-1.20) H 12/05/18 03:40 Est GFR ( Amer) 56 (> 60) L 12/06/18 03:20 Est GFR (Non-Af Amer) 54 (> 60) L 12/11/18 04:05 Glucose 221 mg/dL (70-105) H 12/12/18 03:34 POC Glucose 188 mg/dL (70-99) H 12/11/18 00:41 Hemoglobin A1c 8.6 % (-5.6) H 12/01/18 03:19 Calculated Osmolality 279 (280-300) L 12/09/18 03:39 Calcium 8.1 mg/dL (8.6-10.3) L 12/12/18 03:34 Phosphorus 2.6 mg/dL (2.7-4.5) L 12/06/18 03:20 Magnesium 1.4 mg/dL (1.6-2.6) L 12/02/18 04:21 Total Bilirubin 1.1 mg/dL (0.3-1.0) H 12/09/18 03:39 Direct Bilirubin 0.6 mg/dL (0.0-0.2) H 12/09/18 03:39 Serum Total Protein 5.5 g/dL (6.4-8.9) L 12/09/18 03:39 Albumin 2.3 g/dL (3.5-5.7) L 12/09/18 03:39 Albumin/Globulin Ratio 0.7 (1.1-2.2) L 12/09/18 03:39 Prealbumin 3.4 mg/dL (17.0-34.0) L 12/03/18 04:00 HDL Cholesterol 22 mg/dL (40-59) L 12/01/18 03:19 Procalcitonin 1.51 ng/mL (0.00-0.15) H 12/11/18 12:10 Urine Clarity Cloudy (Clear) A 12/11/18 12:25 Urine Protein 100 mg/dL (Neg-Trace) H 12/11/18 12:25 Urine Blood Large (Negative) H 12/11/18 12:25 Urine Nitrite Positive (Negative) A 12/01/18 04:23 Ur Leukocyte Esterase Large (Negative) H 12/11/18 12:25 Urine Microscopic RBC 30-50 per hpf (0-3) H 12/11/18 12:25 Urine Microscopic WBC 30-50 per hpf (0-3) H 12/11/18 12:25 Ur Squamous Epith Cells Many per lpf (None-Few) H 12/01/18 04:23 Urine Bacteria Moderate per hpf (None-Few) H 12/01/18 04:23 Ur Culture Indicated? YES (NO) A 12/11/18 12:25 E. coli (PCR) DETECTED (Not Detect) A 12/01/18 03:50 - Microbiology Findings Microbiology Findings: Microbiology, Last 48 Hours 12/12/18 05:30 Blood Culture - Preliminary Peripheral Venipuncture Culture is incubating and being continuously monitored for growth. Final report to follow. 12/12/18 05:36 Blood Culture - Preliminary Peripheral Venipuncture Culture is incubating and being continuously monit ored for growth. Final report to follow. 12/11/18 17:15 Blood Culture - Preliminary Central Venous Catheter Culture is incubating and being continuously monitored for growth. Final report to follow. 12/11/18 17:01 Blood Culture - Preliminary Central Venous Catheter Culture is incubating and being continuously monitored for growth. Final report to follow. 12/11/18 16:30 Legionella Antigen - Final Urine,[place] Streptococcus pneumoniae Antigen (M - Final 12/11/18 12:25 Urine Culture - Preliminary Urine,Clean Catch Culture is incubating. 12/01/18 08:11 Surgical Biopsy Culture - Preliminary Left Kidney Lactobacillus species Proteus mirabilis Escherichia coli 12/08/18 12:15 Sputum Culture - Preliminary Sputum - Clinical Findings Intake & Output: Intake & Output 12/11/18 12/11/18 12/12/18 15:59 23:59 07:59 Intake Total 787 / 2393 863 / 2393 586.7 / 586.7 Output Total 1527 / 4676 2064 / 4676 969 / 969 Balance -740 / -2283 -1201 / -2283 -382.3 / -382.3 Consult Discharge Plan - Plan Referrals: Kelly Cardozo, RN [Primary Care Provider] -
[2018-12-12] MEDS: Pantoprazole 40 MG VIAL IVP SCH (08:20)
[2018-12-12] MEDS: Cefepime HCl 1,000 MG in Water for inj. (sterile) 10 ML IVP SCH ×3 (08:20→23:06)
[2018-12-12] MEDS: Chlorhexidine Rinse 15 ML MOUTHWASH MM SCH ×2 (08:20→19:51)
[2018-12-12] MEDS: Docusate Oral Soln 100 MG/10 ML UDC PO SCH ×2 (08:22→19:52)
[2018-12-12] MEDS: Lactulose Oral Soln 20 GM/30 ML UDC PO SCH ×2 (08:23→19:52)
[2018-12-12] MEDS: Bisacodyl 10 MG RECTAL SUPPOSITORY RC SCH (08:23)
[2018-12-12] MEDS: Heparin 25,000 UNIT/250 ML D5W 25,000 UNIT/250 ML IV.SOLN IVC SCH (08:32)
--- NOTE | 2018-12-12 10:07 | Nephrology Progress Note ---
Date of Encounter: 12/12/18 Time of Encounter: 10:04 - Assessment and Plan (1) Acute kidney injury superimposed on CKD Current Visit: Yes Status: Acute Patient with multifactorial acute kidney injury and is currently dialysis dependent. She remains on continuous dialysis and seems to be doing well. Her electrolytes have been normalized. Continue to limit obligate fluids if possible Continue to avoid nephrotoxins if possible UOP remains poor hence no signs of renal recovery yet. Patient is off vasopressors and her electrolytes are now normal. Okay to discontinue continuous dialysis. We will monitor for dialysis needs on a daily basis. (2) Sepsis Current Visit: Yes Status: Acute Qualifiers: Qualified Code(s): A41.9 - Sepsis, unspecified organism; R65.20 - Severe sepsis without septic shock (3) Acute and chronic respiratory failure with hypoxia Current Visit: Yes Status: Acute (4) Hydronephrosis Current Visit: Yes Status: Acute Qualifiers: Qualified Code(s): N13.2 - Hydronephrosis with renal and ureteral calculous obstruction Subjective Principal diagnosis: RANCHO Interval history: Patient seen and evaluated. She was extubated this morning. She is slightly disoriented, but I'm not sure of her baseline. ROS seems to be stable. . Objective - Vital Signs Vital signs: Vital Signs Temp Pulse Resp BP Pulse Ox 12/12/18 09:00 86.3 F L 82 20 106/81 99 12/12/18 08:45 19 98 12/12/18 08:30 79 12/12/18 08:00 82 22 93/55 100 12/12/18 07:44 22 96 12/12/18 07:10 84.3 F L 12/12/18 07:00 72 20 91/56 100 12/12/18 06:00 76 21 86/53 100 12/12/18 05:36 29 118/77 94 12/12/18 05:00 71 21 118/78 100 12/12/18 04:00 67 27 79/56 97 12/12/18 03:22 20 98/56 95 12/12/18 03:10 77 12/12/18 03:00 74 22 102/56 94 12/12/18 02:00 58 14 104/61 98 12/12/18 01:13 14 99/59 97 12/12/18 01:00 54 14 99/59 97 12/12/18 00:00 61 14 96/60 99 12/11/18 23:33 67 12/11/18 23:19 14 89/61 98 12/11/18 23:00 60 16 83/55 99 12/11/18 22:00 63 21 67/54 95 12/11/18 21:15 18 64/45 99 12/11/18 21:00 55 15 81/56 100 12/11/18 20:07 63 12/11/18 20:00 95.1 F L 57 15 96/65 100 12/11/18 19:32 15 94/56 100 12/11/18 19:00 60 16 104/59 100 12/11/18 18:00 61 18 88/58 100 12/11/18 17:17 25 97/60 93 12/11/18 17:00 67 18 94/54 93 12/11/18 16:00 98 F 66 19 89/55 98 12/11/18 15:20 24 94/57 96 12/11/18 15:00 62 19 94/57 98 12/11/18 14:00 64 22 112/59 93 12/11/18 13:46 27 117/64 98 12/11/18 13:00 76 23 79/54 93 12/11/18 12:00 97.5 F L 74 23 86/50 96 12/11/18 11:19 24 81/54 94 12/11/18 11:00 81 24 81/54 94 Intake and Output 12/11/18 12/12/18 12/12/18 23:59 07:59 15:59 Intake Total 863 / 2393 708.7 / 718.7 10 718.7 Output Total 2064 / 4676 1004 / 1076 72 / 1076 Balance -1201 / -2283 -295.3 / -357.3 -62 / -357.3 Intake: IV Fluids 398 / 1413 500.7 / 510.7 10 510.7 PrismaSATE BGK 4/2.5 5,000 ML @ 0 / 0 0 / 0 1000 mls/hr CRRT CONT MEGA Rx#: [id number] Precedex Premix 400 mcg In 100 200 / 500 200 / 200 ml @ 0.2 MCG/KG/HR 6.31 mls/hr IVC .[id number] MEGA Rx#:[id number] Heparin 25,000 UNIT/250 ML D5W 178 / 378 122 / 122 25,000 unit In 250 ml @ 14 UNIT /KG/HR 15.414 mls/hr IVC . [id number] MEGA Rx#:[id number] Phenylephrine 50 MG In Dextrose 178.7 / 178.7 5% 250 ML @ 100 MCG/MIN 30.6 mls/hr IVC CONT MEGA Rx#: [id number] Maxipime 1,000 MG In Water for 10 / 10 inj. (sterile) 10 ML @ 300 mls/ hr IVP Q8HR MEGA Rx#:[id number] Oral 0 / 0 Tube Feeding 240 / 455 208 / 208 Free Water 150 / 300 Free Water Intake Amount 75 / 225 Output: Camryn 1022 / 2331 431 / 431 Catheter 20 205 15 / 15 0 / 15 Gastric Drainage 100 / 100 Fluid Removed by Prismaflex 1022 / 2140 458 / 530 72 / 530 Other: Stool Size Copious Stool Consistency loose liquid Stool Color Brown # Bowel Movements 1 Weight 127 kg Blood Glucose* 173 217 217 Patient Weight 12/12/18 23:59 Weight 127 kg - General Appearance General appearance: Present: well-developed, well-nourished EENT: Present: ATNC Respiratory: Present: course breath sounds Cardiology: Present: regular rate Gastrointestinal: Present: obese Integumentary: Present: warm and dry Musculoskeletal: Present: no cyanosis Psychiatric: Present: mood/affect appropriate - Lab 12/12/18 03:34 12/12/18 03:34 Most recent lab results 12/12/18 03:34 Calcium 8.1 L Consult Discharge Plan - Plan Referrals: Kelly Cardozo RN [Primary Care Provider] -
[2018-12-12] MEDS: Ondansetron 4 MG/2 ML VIAL IVP PRN (10:08)
[2018-12-12] MEDS ORDERED: *HR* Heparin 5,000 UNIT/ML VIAL ONE (10:46)
[2018-12-12] MEDS: Budesonide/Formoterol 160/4.5 1 PUFF INH IH SCH ×2 (11:15→21:50)
[2018-12-12] MEDS: *HR* Amiodarone 200 MG TABLET PO SCH ×2 (12:17→21:06)
[2018-12-12] MEDS: FentaNYL (PF) 1,000 MCG in 0.9 % Sodium Chloride 80 ML IVC SCH (14:38)
[2018-12-12] MEDS: *HR* Heparin 5,000 UNIT/ML VIAL SQ SCH ×2 (14:50→19:51)
[2018-12-12] MEDS ORDERED: *HR* Metoprolol 5 MG/5 ML VIAL IVP ONE (15:23)
[2018-12-12] MEDS: *HR* Metoprolol 5 MG/5 ML VIAL IVP SCH ×3 (15:28→23:07)
[2018-12-12 15:36] LABS: Magnesium 2.3 mg/dL (1.6-2.6)
[2018-12-12] MEDS ORDERED: Acetaminophen 325 MG TABLET PO PRN (19:58)
[2018-12-12] MEDS ORDERED: traMADol 50 MG TABLET PO PRN (19:58)
[2018-12-12] MEDS ORDERED: *HR* OxyCODONE Immed Rel 5 MG TABLET PO PRN (19:58)
[2018-12-12] MEDS: Phenylephrine 50 MG in D5% in Water 250 ML IVC SCH (23:21)
[2018-12-13] MEDS: Levalbuterol Neb 1.25 MG/3 ML IH SCH ×4 (03:33→21:31)
[2018-12-13] MEDS: Insulin LISPRO 300 UNITS/3 ML VIAL SQ SCH ×6 (03:40→23:33)
[2018-12-13] MEDS: Artificial Tears SOLN 15 ML BOTTLE BOTH EYES SCH ×6 (03:40→23:25)
[2018-12-13 03:58] LABS: Hematocrit 31.2 % (35.3-44.9); Hemoglobin 9.2 g/dL (11.5-15.4); Mean Corpuscular HGB Conc 29.5 g/dL (31.6-35.5); Mean Corpuscular Hemoglobin 28.5 pg (28.0-33.3); Mean Corpuscular Volume 96.6 fL (83.0-100.0); Mean Platelet Volume 12.8 fL (9.4-12.4); Platelet Count 106 K/mcL (140-400); Red Blood Count 3.23 M/mcL (3.82-4.97); Red Cell Distribution Width 19.9 % (11.5-14.5); White Blood Count 15.8 K/mcL (4.3-11.1)
[2018-12-13 04:10] LABS: Calcium 8.4 mg/dL (8.6-10.3); Potassium 4.5 mEq/L (3.5-5.1)
[2018-12-13] MEDS: Ondansetron 4 MG/2 ML VIAL IVP PRN ×2 (04:30→17:15)
[2018-12-13] MEDS: *HR* Heparin 5,000 UNIT/ML VIAL SQ SCH ×3 (05:05→22:03)
[2018-12-13] MEDS: *HR* Metoprolol 5 MG/5 ML VIAL IVP SCH (05:05)
[2018-12-13] MEDS: Phenylephrine 50 MG in D5% in Water 250 ML IVC SCH ×3 (06:06→23:26)
--- NOTE | 2018-12-13 06:48 | Pulmonology Progress Note ---
Date of Encounter: 12/13/18 Time of Encounter: 06:48 Assessment and Plan (1) Acute and chronic respiratory failure with hypoxia Current Visit: Yes Status: Acute Patient seen and examined at bedside Labs, radiology, chart personally reviewed. Management was reviewed during multidisciplinary critical care rounds. Below reflects systems basis assessment and plan for this complex patient managed in the ICU ABRASIVE SAWYER: Patient has suffered from a metabolic encephalopathy for several days no with overt evidence of hyperactive delirium. We will focus on buddhist of sleep-wake cycle. avoid sensory deprivation, and avoid ABRASIVE SAWYER depressant medications as able. Pulm: Acute hypoxic hypercapnic respiratory failure which is improving patient was successfully liberated from the vent today and is tolerating nasal cannula she has underlying COPD and has been treated for COPD exacerbation I do not believe that the current status worsened continue systemic glucocorticoids and they have been stopped we will continue schedule bronchodilators. She is high risk for further deterioration requiring reintubation. Cont positive airway pressure at the very least when she is sleeping and as needed for increased WOB or hypoxia. Cards: Worsening in A. fib with RVR and she will be placed on a Cardizem infusion for this reason she had a colonic low dose of phenylephrine to keep pressure up but as her heart rate improved some and her blood pressure has also improved. GI: stable today. No further episodes of emesis. She has responded favorably to augmentation of bowel regimen. Nutrition: Currently nothing by mouth postextubation will need formal speech/swallow eval prior to commending diet. High risk for aspiration Renal: Acute kidney injury requiring HD. Dialysis holiday today can consider IHD tomorrow. She remains oliguric hopefully we will see improvement in renal function in the upcoming days to weeks appreciate nephrology recommendations continue nephro sparing protocol. UOP Monitored, Cont to Trend sCr and monitor Electrolytes. ID: The patient is being treated for Escherichia coli bacteremia secondary to obstructive renal calculus. Urology/ID following. She is on broad-spectrum antibiotics white count has fluctuated over the last several days. Yesterday normal today elevated. Will need ureteral stent placement once clinically stabilizes and no clear evidence of active infection Heme/Onc: Patient has been on heparin infusion for A. fib and Camryn. Now with Camryn stopping and mild thrombocytopenia today I will hold systemic anticoagulation can start DVT prophylaxis I suspect that the etiology of her thrombocytopenia is critical illness use of Camryn and antimicrobial. There is no evidence of overt hemorrhage continue to monitor closely H&H has been stable. Start DVT prophylaxis. Endo: Glucose Monitored continue bolus dosing of insulin Integ/MSK: Skin Care per routine ICU Nursing Protocol to prevent ulcers. Lines: All lines examined without evidence of infection : Dispo: Monitor in ICU postextubation CODE: DNAR. (2) Atrial fibrillation Current Visit: Yes Status: Acute Qualifiers: Atrial fibrillation type: chronic Qualified Code(s): I48.2 - Chronic atrial fibrillation (3) Acute delirium Current Visit: No Status: Acute (4) Ureteral calculi Current Visit: Yes Status: Acute (5) COPD (chronic obstructive pulmonary disease) Current Visit: Yes Status: Chronic Qualifiers: COPD type: unspecified COPD Qualified Code(s): J44.9 - Chronic obstructive pulmonary disease, unspecified (6) Acute kidney injury superimposed on CKD Current Visit: Yes Status: Acute (7) Oliguria Current Visit: Yes Status: Acute (8) Goals of care, counseling/discussion Current Visit: Yes Status: Acute (9) Severe sepsis Current Visit: Yes Status: Acute (10) E coli bacteremia Current Visit: Yes Status: Acute (11) Acute respiratory failure Current Visit: Yes Status: Acute Qualifiers: Respiratory failure complication: hypoxia Qualified Code(s): J96.01 - Acute respiratory failure with hypoxia Subjective Principal diagnosis: Septic Shock Interval history: Geovanna is more delirious today she has tolerated be next day and now for greater than 24 hours she does have some secretions which been requiring suctioning she remains disoriented and unable to take by mouth. Objective PUL Vital signs: Last Vital Signs Temp 98.4 F 12/13/18 04:00 Pulse 117 12/13/18 06:00 Resp 18 12/13/18 06:00 BP 100/67 12/13/18 06:00 Pulse Ox 97 12/13/18 06:00 General appearance: other (She is crying out for help periodically but she is reorients very quickly and does not appear to be in a distress at that time and is very calm when speaking with me she generally is able to answer simple questions but quickly becomes distracted) Eyes: nonicteric ENT: oropharynx dry Mallampati (class): 4 Neck: supple Auscultation: bilateral: rhonchi Cardiovascular: irregular rhythm Gastrointestinal: normoactive bowel sounds, soft, other (Modest tenderness to deep palpation) Extremities: no cyanosis, pink and warm, pulses normal, edema Musculoskeletal: other (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) non-focal exam, pupils equal and round mood appropriate Results - Laboratory Findings CBC and BMP: 12/13/18 03:25 12/13/18 03:25 ABG ABG pH 7.39 pH Units (7.32-7.45) 12/11/18 04:50 ABG pCO2 40 mmHg (35-45) 12/11/18 04:50 ABG pO2 91 mmHg (85-104) 12/11/18 04:50 ABG O2 Saturation 97 % (95-98) 12/11/18 04:50 PT/INR, D-dimer PT 13.7 Seconds (9.4-12.1) H 12/03/18 11:55 Abnormal lab findings: Abnormal lab results WBC 15.8 K/mcL (4.3-11.1) H 12/13/18 03:25 RBC 3.23 M/mcL (3.82-4.97) L 12/13/18 03:25 Hgb 9.2 g/dL (11.5-15.4) L 12/13/18 03:25 Hct 31.2 % (35.3-44.9) L 12/13/18 03:25 MCHC 29.5 g/dL (31.6-35.5) L 12/13/18 03:25 RDW 19.9 % (11.5-14.5) H 12/13/18 03:25 Plt Count 106 K/mcL (140-400) L 12/13/18 03:25 MPV 12.8 fL (9.4-12.4) H 12/13/18 03:25 Band Neutrophils % 10.0 % (0-4) H 12/12/18 03:34 Metamyelocytes % 2.0 % (0) H 12/11/18 04:05 Myelocytes % 2.0 % (0) H 12/12/18 03:34 Neutrophils # 14.0 K/mcL (1.6-8.9) H 12/11/18 04:05 Monocytes # 1.4 K/mcL (0.0-1.3) H 12/10/18 04:09 Eosinophils # 1.1 K/mcL (0.0-0.6) H 12/11/18 04:05 Nucleated RBCs/100 WBC 0.2 /100 WBC (0) H 12/12/18 03:34 Smudge Cells Present (Not Present) A 12/08/18 03:47 Platelet Estimate Decreased (Normal) L 12/12/18 03:34 Large Platelets Present (Not Present) A 12/07/18 03:41 Immature Plt Fraction 16.2 % (1.1-6.1) H 12/12/18 03:34 Polychromasia 2+ (Not Present) A 12/12/18 03:34 Hypochromasia Present (Not Present) A 12/11/18 04:05 Anisocytosis 1+ (Not Present) A 12/12/18 03:34 PT 13.7 Seconds (9.4-12.1) H 12/03/18 11:55 APTT 36.4 Seconds (26.0-36.0) H 12/01/18 03:19 Heparin Anti-Xa, Unfract 0.84 IU/mL (0.30-0.70) H 12/11/18 04:05 ABG pH 7.16 pH Units (7.32-7.45) L* 12/03/18 06:23 ABG pCO2 49 mmHg (35-45) H 12/06/18 04:57 ABG pO2 80 mmHg (85-104) L 12/10/18 04:52 ABG HCO3 28 mEq/L (21-27) H 12/05/18 04:22 ABG Total CO2 28 mEq/L (20-26) H 12/10/18 04:52 ABG O2 Saturation 94 % (95-98) L 12/09/18 04:36 ABG Base Excess -9 mEq/L (-2 to 3) L 12/03/18 06:23 Sodium 132 mEq/L (136-145) L 12/13/18 03:25 Chloride 111 mEq/L (98-107) H 12/02/18 04:21 Carbon Dioxide 22 mEq/L (23-29) L 12/13/18 03:25 BUN 28 mg/dL (8-23) H 12/04/18 04:27 Creatinine 1.94 mg/dL (0.60-1.20) H 12/13/18 03:25 Est GFR ( Amer) 32 (> 60) L 12/13/18 03:25 Est GFR (Non-Af Amer) 26 (> 60) L 12/13/18 03:25 Glucose 119 mg/dL (70-105) H 12/13/18 03:25 POC Glucose 124 mg/dL (70-99) H 12/12/18 23:09 Hemoglobin A1c 8.6 % (-5.6) H 12/01/18 03:19 Calculated Osmolality 276 (280-300) L 12/13/18 03:25 Calcium 8.4 mg/dL (8.6-10.3) L 12/13/18 03:25 Phosphorus 2.6 mg/dL (2.7-4.5) L 12/06/18 03:20 Magnesium 1.4 mg/dL (1.6-2.6) L 12/02/18 04:21 Total Bilirubin 1.1 mg/dL (0.3-1.0) H 12/09/18 03:39 Direct Bilirubin 0.6 mg/dL (0.0-0.2) H 12/09/18 03:39 Serum Total Protein 5.5 g/dL (6.4-8.9) L 12/09/18 03:39 Albumin 2.3 g/dL (3.5-5.7) L 12/09/18 03:39 Albumin/Globulin Ratio 0.7 (1.1-2.2) L 12/09/18 03:39 Prealbumin 3.4 mg/dL (17.0-34.0) L 12/03/18 04:00 HDL Cholesterol 22 mg/dL (40-59) L 12/01/18 03:19 Procalcitonin 1.51 ng/mL (0.00-0.15) H 12/11/18 12:10 Urine Clarity Cloudy (Clear) A 12/11/18 12:25 Urine Protein 100 mg/dL (Neg-Trace) H 12/11/18 12:25 Urine Blood Large (Negative) H 12/11/18 12:25 Urine Nitrite Positive (Negative) A 12/01/18 04:23 Ur Leukocyte Esterase Large (Negative) H 12/11/18 12:25 Urine Microscopic RBC 30-50 per hpf (0-3) H 12/11/18 12:25 Urine Microscopic WBC 30-50 per hpf (0-3) H 12/11/18 12:25 Ur Squamous Epith Cells Many per lpf (None-Few) H 12/01/18 04:23 Urine Bacteria Moderate per hpf (None-Few) H 12/01/18 04:23 Ur Culture Indicated? YES (NO) A 12/11/18 12:25 E. coli (PCR) DETECTED (Not Detect) A 12/01/18 03:50 - Microbiology Findings Microbiology Findings: Microbiology, Last 48 Hours 12/11/18 12:25 Urine Culture - Final Urine,Clean Catch Yeast Species 12/08/18 12:15 Sputum Culture - Final Sputum 12/12/18 05:30 Blood Culture - Preliminary Peripheral Venipuncture Culture is incubating and being continuously monitored for growth. Final report to follow. 12/12/18 05:36 Blood Culture - Preliminary Peripheral Venipuncture Culture is incubating and being continuously monitored for growth. Final report to follow. 12/11/18 17:15 Blood Culture - Preliminary Central Venous Catheter Culture is incubating and being continuously monitored for growth. Final report to follow. 12/11/18 17:01 Blood Culture - Preliminary Central Venous Catheter Culture is incubating and being continuously monitored for growth. Final report to follow. 12/11/18 16:30 Legionella Antigen - Final Urine,[place] Streptococcus pneumoniae Antigen (M - Final 12/01/18 08:11 Surgical Biopsy Culture - Preliminary Left Kidney Lactobacillus species Proteus mirabilis Escherichia coli - Clinical Findings Intake & Output: Intake & Output 12/12/18 12/12/18 12/13/18 15:59 23:59 07:59 Intake Total 330 / 1135.0 96.3 / 1135.0 255 / 255 Output Total 210 / 1214 0 / 1214 0 / 0 Balance 120 / -79.0 96.3 / -79.0 255 / 255 Weight 127 kg 118.1 kg Consult Discharge Plan - Plan Referrals: Kelly Cardozo, RN [Primary Care Provider] -
[2018-12-13] MEDS: *HR* Amiodarone 200 MG TABLET PO SCH (08:35)
[2018-12-13] MEDS: Pantoprazole 40 MG VIAL IVP SCH (08:35)
[2018-12-13] MEDS: Cefepime HCl 1,000 MG in Water for inj. (sterile) 10 ML IVP SCH ×3 (08:35→23:25)
[2018-12-13] MEDS: Chlorhexidine Rinse 15 ML MOUTHWASH MM SCH ×2 (08:35→22:02)
--- NOTE | 2018-12-13 10:12 | Nephrology Progress Note ---
Date of Encounter: 12/13/18 Time of Encounter: 10:11 - Assessment and Plan (1) Acute kidney injury superimposed on CKD Current Visit: Yes Status: Acute Patient with multifactorial acute kidney injury and is currently dialysis dependent. Continurous dialysis was discontinued yesterday. Continue to limit obligate fluids if possible Continue to avoid nephrotoxins if possible UOP remains poor hence no signs of renal recovery yet. Patient is back on vasopressors. We will monitor for dialysis needs on a daily basis. No need for dialysis today. (2) Sepsis Current Visit: Yes Status: Acute Antibiotics as per primary with renal dosing. Qualifiers: Sepsis type: sepsis due to unspecified organism Qualified Code(s): A41.9 - Sepsis, unspecified organism; R65.20 - Severe sepsis without septic shock (3) Acute and chronic respiratory failure with hypoxia Current Visit: Yes Status: Acute Patient extubated 12/13/2018. (4) Hydronephrosis Current Visit: Yes Status: Acute Qualifiers: Hydronephrosis type: with ureteral calculous obstruction Qualified Code(s): N13.2 - Hydronephrosis with renal and ureteral calculous obstruction Subjective Principal diagnosis: Septic Shock Interval history: Patient seen and evaluated. She wants to go home. She is disoriented, but I'm not sure of her baseline mental status. ROS seems to be stable. . Objective - Vital Signs Vital signs: Vital Signs Temp Pulse Resp BP Pulse Ox 12/13/18 08:00 98.9 F 113 18 120/41 96 12/13/18 07:51 121 12/13/18 07:00 120 20 93/69 98 12/13/18 06:00 117 18 100/67 97 12/13/18 05:00 120 20 83/50 99 12/13/18 04:00 98.4 F 119 18 91/66 98 12/13/18 03:38 114 12/13/18 03:33 26 95 12/13/18 03:00 141 20 96/62 97 12/13/18 02:00 122 16 82/56 94 12/13/18 01:00 121 20 97/51 96 12/13/18 00:00 98.7 F 122 16 91/46 96 12/12/18 23:17 128 12/12/18 23:00 132 21 93/56 96 12/12/18 22:00 134 20 93/54 96 12/12/18 21:50 24 96 12/12/18 21:00 122 18 85/51 94 12/12/18 20:14 118 12/12/18 20:00 99.2 F 135 20 99/65 98 12/12/18 19:00 113 22 85/49 97 12/12/18 18:00 118 20 77/54 94 12/12/18 17:00 113 20 91/66 94 12/12/18 16:26 98.6 F 12/12/18 16:00 117 20 72/59 93 12/12/18 15:40 20 98 12/12/18 15:00 112 20 91/47 98 12/12/18 14:00 119 20 86/45 97 12/12/18 13:00 116 20 95/54 95 12/12/18 12:00 96.3 F L 118 18 91/49 94 12/12/18 11:16 20 95 12/12/18 11:00 120 20 94/64 94 Intake and Output 12/12/18 12/13/18 12/13/18 23:59 07:59 15:59 Intake Total 96.3 / 1135.0 280 / 290 10 / 290 Output Total 0 / 1214 0 / 0 Balance 96.3 / -79.0 280 / 290 10 / 290 Intake: IV Fluids 96.3 / 927.0 255 / 265 10 / 265 PrismaSATE BGK 4/2.5 5,000 ML @ 0 / 0 1000 mls/hr CRRT [facility] Rx#: [id number] FentaNYL (PF) 1,000 MCG In 0.9 0 / 0 % Sodium Chloride 80 ML @ 50 MCG/HR 5 mls/hr IVC [facility] Rx #:[id number] Phenylephrine 50 MG In Dextrose 76.3 / 255.0 255 / 255 5% 250 ML @ 100 MCG/MIN 30.6 mls/hr IVC [facility] Rx#: [id number] Maxipime 1,000 MG In Water for 20 / 30 10 / 10 inj. (sterile) 10 ML @ 300 mls/ hr IVP Q8HR [facility] Rx#:[id number] Oral 25 / 25 Output: Rectal Tube 0 / 0 Catheter 0 / 15 0 / 0 Other: Weight 118.1 kg Blood Glucose* 89 113 134 Patient Weight 12/13/18 23:59 Weight 118.1 kg - General Appearance General appearance: Present: well-developed, well-nourished, obese EENT: Present: ATNC Neck: Present: supple Respiratory: Present: course breath sounds Cardiology: Present: edema, regular rate Dialysis Vascular Access: Venous Catheter Gastrointestinal: Present: obese Integumentary: Present: warm and dry Neurologic: Present: confused Musculoskeletal: Present: no cyanosis Psychiatric: Present: mood/affect appropriate - Lab 12/13/18 03:25 12/13/18 03:25 Most recent lab results 12/13/18 03:25 Calcium 8.4 L Consult Discharge Plan - Plan Referrals: Kelly Cardozo RN [Primary Care Provider] -
[2018-12-13] MEDS: Docusate Oral Soln 100 MG/10 ML UDC PO SCH ×2 (10:38→22:02)
[2018-12-13] MEDS: Bisacodyl 10 MG RECTAL SUPPOSITORY RC SCH (10:38)
[2018-12-13] MEDS: Lactulose Oral Soln 20 GM/30 ML UDC PO SCH ×2 (10:38→22:02)
[2018-12-13] MEDS: Budesonide/Formoterol 160/4.5 1 PUFF INH IH SCH ×2 (11:14→21:31)
[2018-12-13] MEDS: *HR* Midazolam HCl 2 MG/2 ML VIAL IVP PRN (22:33)
[2018-12-14] MEDS ORDERED: *HR* OxyCODONE Oral Soln 5 MG/5 ML UD.LIQ PO PRN (00:07)
[2018-12-14] MEDS: Insulin LISPRO 300 UNITS/3 ML VIAL SQ SCH ×5 (03:40→20:23)
[2018-12-14] MEDS: Artificial Tears SOLN 15 ML BOTTLE BOTH EYES SCH ×3 (03:40→12:33)
[2018-12-14] MEDS: Levalbuterol Neb 1.25 MG/3 ML IH SCH ×4 (03:43→21:43)
[2018-12-14 03:57] LABS: Hematocrit 31.3 % (35.3-44.9); Hemoglobin 9.1 g/dL (11.5-15.4); Mean Corpuscular HGB Conc 29.1 g/dL (31.6-35.5); Mean Corpuscular Hemoglobin 28.4 pg (28.0-33.3); Mean Corpuscular Volume 97.8 fL (83.0-100.0); Mean Platelet Volume 12.5 fL (9.4-12.4); Platelet Count 137 K/mcL (140-400); Red Cell Distribution Width 19.9 % (11.5-14.5); White Blood Count 14.8 K/mcL (4.3-11.1)
[2018-12-14 04:06] LABS: Calcium 8.8 mg/dL (8.6-10.3); Potassium 4.4 mEq/L (3.5-5.1)
[2018-12-14] MEDS: *HR* Heparin 5,000 UNIT/ML VIAL SQ SCH ×3 (06:12→20:23)
--- NOTE | 2018-12-14 09:06 | Nephrology Progress Note ---
<Walter Kaminskijesus alberto Valadez - Last Filed: 12/14/18 16:17> Date of Encounter: 12/14/18 Time of Encounter: 10:00 - Assessment and Plan (1) Acute kidney injury superimposed on CKD Status: Acute Known CKD with superimposed RANCHO Etiology likely multifactorial: hypoperfusion, ABX, Pyelonephrosis Was on CRRT, stopped on 12/12/18 Electrolytes stable since that time Not clinically volume overloaded at this time Serum Creatinine has increased 2.86 today Patient is Oliguric: UOP 45ml in last 48hrs. Plan: -Will send for one round HD today and reassess needs daily, no fluid to be taken off -Avoid unneccesary fluids at this time -Strict I's and O's -Renal dose all medications -Avoid nephrotoxins if at all possible (2) Oliguria Status: Acute 45mls Urine Output in last 48hrs Was taken off Dialysis 12/12/18 Will restart dialysis today and reassess (4) Acute respiratory failure Status: Acute Management per primary team Qualifiers: Respiratory failure complication: hypoxia Qualified Code(s): J96.01 - Acute respiratory failure with hypoxia (5) Sepsis Status: Resolved ABX management per Infectious Disease and primary team Please measure levels and renal dose and medications Avoid nephrotoxins if at all possible Qualifiers: Sepsis type: sepsis due to unspecified organism Qualified Code(s): A41.9 - Sepsis, unspecified organism; R65.20 - Severe sepsis without septic shock Subjective Principal diagnosis: Septic Shock Interval history: Patient seen and examined at bedside. Patient denies any complaints. Was on Continuous Dialysis up until 12/12. Remains dialysis dependent, no evidence of renal recovery at this time. UOP 45mL in 48 hours. Serum Creatinine 2.86 today. Will send for one round HD today and reassess needs daily. BP low this morning, continues to require vasopressor support to maintain adequate perfusion. Objective - Vital Signs Vital signs: Vital Signs Temp Pulse Resp BP Pulse Ox 12/14/18 08:30 113 22 99/54 94 12/14/18 08:00 98.4 F 12/14/18 07:30 113 23 103/59 93 12/14/18 06:00 122 22 105/69 93 12/14/18 05:00 117 20 92/69 95 12/14/18 04:33 116 12/14/18 04:00 99.2 F 120 22 101/55 93 12/14/18 03:44 20 92 12/14/18 03:00 121 19 128/73 91 12/14/18 02:00 113 20 114/74 94 12/14/18 01:00 116 22 121/64 92 12/14/18 00:00 98.2 F 111 20 103/72 92 12/13/18 23:55 122 12/13/18 23:00 109 22 133/114 87 12/13/18 22:20 18 93 12/13/18 22:00 115 22 106/73 91 12/13/18 21:32 22 94 12/13/18 21:00 112 20 110/60 91 12/13/18 20:54 98.5 F 12/13/18 20:00 110 18 114/71 97 12/13/18 19:00 121 20 116/62 96 12/13/18 18:00 115 20 113/81 94 12/13/18 17:00 110 20 84/51 97 12/13/18 16:00 98.0 F 108 18 106/70 95 12/13/18 15:47 20 96 12/13/18 15:00 111 20 107/61 96 12/13/18 14:00 120 20 104/67 96 12/13/18 13:00 125 22 105/64 97 12/13/18 12:00 137 20 108/58 96 12/13/18 11:31 139 20 110/64 95 12/13/18 11:21 19 97 12/13/18 10:00 114 19 107/60 97 Intake and Output 12/13/18 12/14/18 12/14/18 23:59 07:59 15:59 Intake Total 219 / 900 170 / 170 Output Total 20 / 30 0 / 32 32 / 32 Balance 199 / 870 170 / 138 -32 / 138 Intake: IV Fluids 219 / 835 170 / 170 Cardizem 50 MG In 0.9 % Sodium 50 / 50 50 / 50 Chloride 40 ML @ 5 MG/HR 5 mls/ hr IVC .Q10H [facility] Rx#:[id number] Phenylephrine 50 MG In Dextrose 159 / 765 110 / 110 5% 250 ML @ 100 MCG/MIN 30.6 mls/hr IVC CONT [facility] Rx#: [id number] Maxipime 1,000 MG In Water for 10 20 10 / 10 inj. (sterile) 10 ML @ 300 mls/ hr IVP Q8HR [facility] Rx#:[id number] Output: Stool Rectal Tube 0 / 0 Catheter 0 / 2 2 Other: Stool Consistency liquid Stool Color Brown Weight 115.2 kg Blood Glucose* 129 171 131 Patient Weight 12/14/18 23:59 Weight 115.2 kg - General Appearance Exam: Gen: Vitals Noted. Patient is oriented x2. Head: Atraumatic, normocephalic ENT: EOMI, anicteric sclera, Mucous Membranes Moist Neck: Temporary Dialysis catheter in place. Dressing C/D/I. CV: Tachycardic, irregular, no murmurs auscultated Lungs: Course breath sounds, no crackles or wheezes appreciated Ext: No evidence of peripheral edema. Right Lower BKA, surgical site well heale d. Left lower TMA, site well healed. Skin: no rashes, dry and warm. - Lab 12/14/18 03:30 12/14/18 03:30 Most recent lab results 12/14/18 03:30 Calcium 8.8 Consult Discharge Plan - Plan Additional Instructions: Finish antibiotic course for remaining 4 days. Avoid nephrotoxic medication. Avoid Xarelto. Start taking Coumadin. INR check in next 3 days. Referrals: Kelly Cardozo CNP [Primary Care Provider] - ([facility]) Prescriptions: Warfarin perPT [Coumadin perPT] 2.5 mg PO DAILY@1800 14 Days #14 each Cefdinir [Omnicef] 300 mg PO QPM 4 Days #4 capsule <Luan Moore - Last Filed: 12/30/18 02:00> Date of Encounter: 12/14/18 - Assessment and Plan (1) Sepsis Status: Deleted I examined this patient and my medical decision-making was reviewed with the Resident Physician. I agree with the documented findings, disposition and treatment plan as described except to the extent set forth below. The patient was seen on dialysis. Qualifiers: Sepsis type: sepsis due to unspecified organism Qualified Code(s): A41.9 - Sepsis, unspecified organism; R65.20 - Severe sepsis without septic shock (2) Acute and chronic respiratory failure with hypoxia Status: Acute (3) Hydronephrosis Status: Acute Qualifiers: Hydronephrosis type: with ureteral calculous obstruction Qualified Code(s): N13.2 - Hydronephrosis with renal and ureteral calculous obstruction (4) Acute kidney injury superimposed on CKD Status: Acute Objective - Lab 12/25/18 03:25 12/25/18 03:25
[2018-12-14] MEDS: Docusate Oral Soln 100 MG/10 ML UDC PO SCH (09:15)
[2018-12-14] MEDS: *HR* Amiodarone 200 MG TABLET PO SCH (09:15)
[2018-12-14] MEDS: Pantoprazole 40 MG VIAL IVP SCH (09:15)
[2018-12-14] MEDS: Cefepime HCl 1,000 MG in Water for inj. (sterile) 10 ML IVP SCH ×2 (09:15→16:14)
[2018-12-14] MEDS: Bisacodyl 10 MG RECTAL SUPPOSITORY RC SCH (09:16)
[2018-12-14] MEDS: Chlorhexidine Rinse 15 ML MOUTHWASH MM SCH (09:16)
[2018-12-14] MEDS: Lactulose Oral Soln 20 GM/30 ML UDC PO SCH (09:16)
[2018-12-14] MEDS ORDERED: 0.9 % Sodium Chloride 250 ML IVC PRN (10:33)
[2018-12-14] MEDS ORDERED: *HR* Heparin 10,000 UNIT/10 ML VIAL IV PRN (10:33)
[2018-12-14] MEDS: Budesonide/Formoterol 160/4.5 1 PUFF INH IH SCH ×3 (10:42→21:43)
[2018-12-14] MEDS ORDERED: 0.9 % Sodium Chloride 1,000 ML PRIME SCH (10:45)
--- NOTE | 2018-12-14 11:18 | Infectious Disease Progress No ---
ID Progress Note Date of Encounter: 12/14/18 Time of Encounter: 11:15 - Subjective Subjective: Patient seen and examined. No acute events noted overnight. Patient extubated 12/12/18. Apparently had multiple episodes of emesis over the weekend and possible aspiration. White blood cell count initially normalize, but is back up since possible aspiration event. Patient is awake. Oriented 2. She is cooperative and follows most commands. Per nursing, taking water and pills wi thout a problem, but refuses to swallow her own saliva. The patient complains of pain in her right arm at this time due to the vascular access team attempting to place the midline. Denies shortness of breath or cough. Denies nausea or vomiting this morning. Rectal tube patent with liquid brown stool. Denies abdominal pain. The patient denies any pain in her back or extremities except as previously mentioned. - Objective CBC & Chem 7: 12/14/18 03:30 12/14/18 03:30 - Line Documentation Line Documentation: Dialysis Catheter (right IJ ), Lama Catheter, Triple Lumen Central Line (right subclavian ) - Exam Vitals: Temp Pulse Resp BP Pulse Ox 98.4 F 113 22 99/54 94 12/14/18 08:00 12/14/18 08:30 12/14/18 10:46 12/14/18 08:30 12/14/18 10:46 Exam: Head: Atraumatic, normal inspection, normocephalic. Eye: EOMI, PERRLA, no scleral icterus noted. ENT: Mucous membranes moist. No odontogenic infection noted. Poor dentition noted. Neck: Normal inspection, no meningismus. Temporary dialysis catheter noted to the right neck with transparent dressing clean, dry, and intact. Respiratory: Clear to auscultation. No rales, respiratory distress, rhonchi, or wheezes noted. Cardiovascular: Irregular rhythm, tachycardic, S1 and S2 audible. No murmurs, rubs, or gallops. GI: Soft, obese, normal bowel sounds. Nontender. Lama catheter draining scant yellow urine. Rectal tube with liquid brown stool noted. Extremities: Previous TMA site well healed without erythema. 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 Neurological: Alert, oriented to person and place, no focal deficits. Answers most questions appropriately, but sometimes answers "yes" and inappropriately. Psychiatric: normal affect, normal mood. Skin: Dry, intact, warm. Normal color. No rashes. - Assessment and Plan (1) Severe sepsis Current Visit: Yes Status: Acute The patient had 4 sepsis criteria on admission. Likely secondary to pyelonephritis, UTI, and bacteremia. Required vasopressors at one point to maintain adequate perfusion. Improved. White blood cell count actually normalized over the weekend, but redeveloped on Friday --> likely secondary to recent aspiration. Continues to have tachycardia. Afebrile. Tachypnea resolved. Blood cultures drawn 12/01/18 were +2 out of 2 sets for Escherichia coli. Repeat blood cultures from 12/02/18 are negative 2 sets. Repeat blood cultures drawn 12/11/18 from the patient's central line are no growth to date 2 sets. Additional repeat blood cultures drawn 12/12/18 from a peripheral stick are no growth to date 2 sets. SNOMED Code(s): 36977316 (2) Leukocytosis Current Visit: Yes Status: Acute Improved initially shortly after admission, but redeveloped. Resolved on Friday, but recurred on Friday --> likely secondary to aspiration. Repeat blood cultures are no growth to date both from the patient's central line and peripherally. Procalcitonin elevated, but the patient has an acute kidney injury. CT of the chest, abdomen, and pelvis ordered, but not done over the weekend. Clinically, the patient appears improved. Qualifiers: Leukocytosis type: unspecified Qualified Code(s): D72.829 - Elevated white blood cell count, unspecified SNOMED Code(s): 325814728, 583069368 (3) E coli bacteremia Current Visit: Yes Status: Acute Causative organism: Escherichia coli. Source: UTI/pyelonephritis. Blood cultures drawn 12/01/18 were +2 out of 2 sets for Escherichia coli. Repeat blood cultures from 12/02/18 are negative 2 sets. Repeat blood cultures drawn 12/11/18 from the patient's central line are no growth to date 2 sets. Additional repeat blood cultures drawn 12/12/18 from a peripheral stick are no growth to date 2 sets. Currently on IV cefepime. SNOMED Code(s): 138199936972 (4) UTI (urinary tract infection) Current Visit: Yes Status: Acute Causative organism: Escherichia coli. Status post cystoscopy, left retrograde pyelogram, and left ureteral stent placement 12/01/18. Currently on IV cefepime. Qualifiers: Urinary tract infection type: acute cystitis Hematuria presence: with hematuria Qualified Code(s): N30.01 - Acute cystitis with hematuria SNOMED Code(s): 79748771 (5) Ileus Current Visit: Yes Status: Acute Resolved. Bowel regimen initiated per primary team. SNOMED Code(s): 594561520 (6) Acute respiratory failure Current Visit: Yes Status: Acute Intubated 12/01/18 for surgery. Etiology likely pulmonary edema vs unknown . Extubated 12/12/18. Management per the pulmonology team. Qualifiers: Respiratory failure complication: hypoxia Qualified Code(s): J96.01 - Acute respiratory failure with hypoxia SNOMED Code(s): 33574135 (7) Acute kidney injury superimposed on CKD Current Visit: Yes Status: Acute RANCHO likely multifactorial: Sepsis plus nephrotoxic medications plus other. Nephrology consult. CRRT initiated, but discontinued over the weekend. Transitioned to intermittent hemodialysis. Management per the nephrology team. Dose-adjust medications and avoid nephrotoxins as able. SNOMED Code(s): 13562138 (8) COPD (chronic obstructive pulmonary disease) Current Visit: Yes Status: Chronic Qualifiers: COPD type: unspecified COPD Qualified Code(s): J44.9 - Chronic obstructive pulmonary disease, unspecified SNOMED Code(s): 76321242 (9) Diabetes mellitus Current Visit: Yes Status: Chronic Recommend aggressive glucose monitoring and control. Management per the primary team. 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 We will hold off on getting CT of the chest, abdomen, and pelvis for now. If patient's white blood cell count continues to be elevated tomorrow, we will likely need to pursue imaging. AK I management per the nephrology team. Respiratory management per the pulmonology team. Continue vancomycin IV. Pharmacy to dose. Goal trough approximately 15. We will likely discontinue soon. Continue cefepime. Will ask pharmacy to assist with dosing given that the patient is no longer on CRRT. Start Flagyl 500 mg by mouth 3 times a day given the patient's recent vomiting episodes and concern for aspiration. We are unable to use Zosyn since she has a penicillin allergy. Monitor renal function and dose adjust antibiotics. Consult Discharge Plan - Plan Referrals: Kelly Cardozo RN [Primary Care Provider] -
[2018-12-14 12:31] LABS: Hepatitis B Surface Antibody < 3.10 mIU/mL
[2018-12-14 12:42] LABS: Hepatitis B Surface Antigen Nonreactive (Nonreactive)
--- NOTE | 2018-12-14 13:42 | Pulmonology Progress Note ---
Date of Encounter: 12/14/18 Time of Encounter: 09:30 Assessment and Plan (1) Acute and chronic respiratory failure with hypoxia Current Visit: Yes Status: Acute Had hemodynamic instability with septic stone and required intubation on 12/01/18 Extubated on 12/12/18 on 4 L of nasal cannula Had several episodes of emesis over the weekend likely aspirated White blood cell count 14.8 this morning Pt. does have hx of COPD and tobacco abuse -Continue scheduled bronchodilators and Symbicort -ID recommends oral Flagyl 500 mg 3 times a day for aspiration pneumonia -Chest x-ray 12/15/18 (2) UTI (urinary tract infection) Current Visit: Yes Status: Acute E. coli PCR positive with Escherichia coli growing in urine UCx show E. coli sensitive to cefepime Pt on Cefepime day , ID recommends continuing Additionally we will continue vancomycin due to lactobacillus Qualifiers: Urinary tract infection type: acute cystitis Hematuria presence: with hematuria Qualified Code(s): N30.01 - Acute cystitis with hematuria (3) Aspiration pneumonia Current Visit: Yes Status: Suspected Suspected aspiration pneumonia since Ms. Rascon started to have several episodes of emesis after extubation Has decreased breath sounds bilateral lower lung lobes could be atelectasis versus pneumonia Due to penicillin allergy we will continue by mouth Flagyl per Infectious disease recommendation Qualifiers: Aspiration pneumonia type: due to vomit Laterality: unspecified laterality Lung location: unspecified part of lung Qualified Code(s): J69.0 - Pneumonitis due to inhalation of food and vomit (4) Sepsis Current Visit: Yes Status: Resolved Likely secondary to urinary tract infection versus upper respiratory infection BCx x2 positive for Escherichia coli Serology PCR shows E. coli Pelvis aspirate culture shows E. coli, Proteus and lactobacillus species --both sensitive to cefepime UCx show E. coli Dr. Alejandro placed subclavian central line due to poor access of IJ and femorals Dr. Salguero placed left ureteral stent on 12/01 Likely secondary to septic stone with e.coli UTI -Urology recommends stone extraction after hemodynamic stability -Continue IV Cefepime day -Urine culture shows lactobacillus continue vancomycin day 6 Qualifiers: Sepsis type: sepsis due to unspecified organism Qualified Code(s): A41.9 - Sepsis, unspecified organism; R65.20 - Severe sepsis without septic shock (5) Ureteral calculi Current Visit: Yes Status: Acute As seen on CT abd and pelvis Urology following and placed a stent on 12/01 Concerning the calculi may be a nidus for ongoing infection Urology recommends stone extraction after hemodynamic stability Currently hemodynamically stable will retouch base with urology (6) Acute kidney injury superimposed on CKD Current Visit: Yes Status: Acute Baseline Creatinine 1.1, this morning creatinine of 2.86 Presented with creatinine of 2.4 on 12/01/18 She is currently oliguric urine of 45 L in the last 48 hours -Urology recommends dialysis as needed -Continue to monitor and avoid nephrotoxic drugs -Continue strict I's and O's -Nephrology consulted (7) Diabetes mellitus Current Visit: Yes Status: Chronic Continue [id number] glucose check Continue sliding-scale insulin Will consider adding long-acting once diet resumes Qualifiers: Diabetes mellitus type: type 2 Diabetes mellitus custodial insulin use: with custodial use Diabetes mellitus complication status: with skin complications Diabetes mellitus complication detail: with foot ulcer Qualified Code(s): E11.621 - Type 2 diabetes mellitus with foot ulcer; L97.509 - Non-pressure chronic ulcer of other part of unspecified foot with unspecified severity; 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 fib and RVR was on Cardizem drip and amiodarone drip initially A. fib was controlled with by mouth metoprolol Cardizem drip was restarted due to A. fib with RVR after sedation was stopped Qualifiers: Atrial fibrillation type: chronic Qualified Code(s): I48.2 - Chronic atrial fibrillation (9) DVT prophylaxis Current Visit: Yes Status: Acute Heparin subcutaneous Subjective Principal diagnosis: Septic Shock Interval history: Ms. Rascon was seen at bedside this morning. Vitals were reviewed and she remained afebrile overnight. She is awake and responds to questions with the had not but not oriented to person place or time. Objective PUL Vital signs: Last Vital Signs Temp 98.9 F 12/14/18 11:50 Pulse 103 12/14/18 13:00 Resp 18 12/14/18 13:00 BP 112/58 12/14/18 13:35 Pulse Ox 93 12/14/18 13:00 General appearance: no acute distress, alert Eyes: nonicteric ENT: oropharynx moist Auscultation: bilateral: rhonchi Cardiovascular: regular rate and rhythm Gastrointestinal: hypoactive bowel sounds, soft, non-tender Integumentary: other Extremities: no edema, pink and warm, other (Right BKA left leg amputation) other (Awake alert and oriented to person place or time. Responds with head nod.) Results - Laboratory Findings CBC and BMP: 12/14/18 03:30 12/14/18 03:30 ABG ABG pH 7.39 pH Units (7.32-7.45) 12/11/18 04:50 ABG pCO2 40 mmHg (35-45) 12/11/18 04:50 ABG pO2 91 mmHg (85-104) 12/11/18 04:50 ABG O2 Saturation 97 % (95-98) 12/11/18 04:50 PT/INR, D-dimer PT 13.7 Seconds (9.4-12.1) H 12/03/18 11:55 Abnormal lab findings: Abnormal lab results WBC 14.8 K/mcL (4.3-11.1) H 12/14/18 03:30 RBC 3.20 M/mcL (3.82-4.97) L 12/14/18 03:30 Hgb 9.1 g/dL (11.5-15.4) L 12/14/18 03:30 Hct 31.3 % (35.3-44.9) L 12/14/18 03:30 MCHC 29.1 g/dL (31.6-35.5) L 12/14/18 03:30 RDW 19.9 % (11.5-14.5) H 12/14/18 03:30 Plt Count 137 K/mcL (140-400) L 12/14/18 03:30 MPV 12.5 fL (9.4-12.4) H 12/14/18 03:30 Band Neutrophils % 10.0 % (0-4) H 12/12/18 03:34 Metamyelocytes % 2.0 % (0) H 12/11/18 04:05 Myelocytes % 2.0 % (0) H 12/12/18 03:34 Neutrophils # 14.0 K/mcL (1.6-8.9) H 12/11/18 04:05 Monocytes # 1.4 K/mcL (0.0-1.3) H 12/10/18 04:09 Eosinophils # 1.1 K/mcL (0.0-0.6) H 12/11/18 04:05 Nucleated RBCs/100 WBC 0.2 /100 WBC (0) H 12/12/18 03:34 Smudge Cells Present (Not Present) A 12/08/18 03:47 Platelet Estimate Decreased (Normal) L 12/12/18 03:34 Large Platelets Present (Not Present) A 12/07/18 03:41 Immature Plt Fraction 16.2 % (1.1-6.1) H 12/12/18 03:34 Polychromasia 2+ (Not Present) A 12/12/18 03:34 Hypochromasia Present (Not Present) A 12/11/18 04:05 Anisocytosis 1+ (Not Present) A 12/12/18 03:34 PT 13.7 Seconds (9.4-12.1) H 12/03/18 11:55 APTT 36.4 Seconds (26.0-36.0) H 12/01/18 03:19 Heparin Anti-Xa, Unfract 0.84 IU/mL (0.30-0.70) H 12/11/18 04:05 ABG pH 7.16 pH Units (7.32-7.45) L* 12/03/18 06:23 ABG pCO2 49 mmHg (35-45) H 12/06/18 04:57 ABG pO2 80 mmHg (85-104) L 12/10/18 04:52 ABG HCO3 28 mEq/L (21-27) H 12/05/18 04:22 ABG Total CO2 28 mEq/L (20-26) H 12/10/18 04:52 ABG O2 Saturation 94 % (95-98) L 12/09/18 04:36 ABG Base Excess -9 mEq/L (-2 to 3) L 12/03/18 06:23 Sodium 134 mEq/L (136-145) L 12/14/18 03:30 Chloride 111 mEq/L (98-107) H 12/02/18 04:21 Carbon Dioxide 20 mEq/L (23-29) L 12/14/18 03:30 BUN 24 mg/dL (8-23) H 12/14/18 03:30 Creatinine 2.86 mg/dL (0.60-1.20) H 12/14/18 03:30 Est GFR ( Amer) 20 (> 60) L 12/14/18 03:30 Est GFR (Non-Af Amer) 17 (> 60) L 12/14/18 03:30 Glucose 168 mg/dL (70-105) H 12/14/18 03:30 POC Glucose 102 mg/dL (70-99) H 12/13/18 23:33 Hemoglobin A1c 8.6 % (-5.6) H 12/01/18 03:19 Calculated Osmolality 276 (280-300) L 12/13/18 03:25 Calcium 8.4 mg/dL (8.6-10.3) L 12/13/18 03:25 Phosphorus 2.6 mg/dL (2.7-4.5) L 12/06/18 03:20 Magnesium 1.4 mg/dL (1.6-2.6) L 12/02/18 04:21 Total Bilirubin 1.1 mg/dL (0.3-1.0) H 12/09/18 03:39 Direct Bilirubin 0.6 mg/dL (0.0-0.2) H 12/09/18 03:39 Serum Total Protein 5.5 g/dL (6.4-8.9) L 12/09/18 03:39 Albumin 2.3 g/dL (3.5-5.7) L 12/09/18 03:39 Albumin/Globulin Ratio 0.7 (1.1-2.2) L 12/09/18 03:39 Prealbumin 3.4 mg/dL (17.0-34.0) L 12/03/18 04:00 HDL Cholesterol 22 mg/dL (40-59) L 12/01/18 03:19 Procalcitonin 1.51 ng/mL (0.00-0.15) H 12/11/18 12:10 Urine Clarity Cloudy (Clear) A 12/11/18 12:25 Urine Protein 100 mg/dL (Neg-Trace) H 12/11/18 12:25 Urine Blood Large (Negative) H 12/11/18 12:25 Urine Nitrite Positive (Negative) A 12/01/18 04:23 Ur Leukocyte Esterase Large (Negative) H 12/11/18 12:25 Urine Microscopic RBC 30-50 per hpf (0-3) H 12/11/18 12:25 Urine Microscopic WBC 30-50 per hpf (0-3) H 12/11/18 12:25 Ur Squamous Epith Cells Many per lpf (None-Few) H 12/01/18 04:23 Urine Bacteria Moderate per hpf (None-Few) H 12/01/18 04:23 Ur Culture Indicated? YES (NO) A 12/11/18 12:25 Vancomycin Trough 22 mcg/mL (5-10) H 12/13/18 11:00 E. coli (PCR) DETECTED (Not Detect) A 12/01/18 03:50 Hep Bs Antibody < 3.10 mIU/mL (10.00-) L 12/14/18 11:30 - Microbiology Findings Microbiology Findings: Microbiology, Last 48 Hours 12/01/18 08:11 Surgical Biopsy Culture - Final Left Kidney Lactobacillus species Proteus mirabilis Escherichia coli 12/11/18 12:25 Urine Culture - Final Urine,Clean Catch Yeast Species 12/08/18 12:15 Sputum Culture - Final Sputum - Clinical Findings Intake & Output: Intake & Output 12/13/18 12/14/18 12/14/18 23:59 07:59 15:59 Intake Total 219 / 900 170 / 830 660 / 830 Output Total 0 / 32 32 / 32 Balance 199 / 870 170 / 798 628 / 798 Weight 115.2 kg Consult Discharge Plan - Plan Referrals: Kelly Cardozo, RN [Primary Care Provider] -
[2018-12-14] MEDS: *HR* Heparin 5,000 UNIT/ML VIAL IV PRN (15:04)
[2018-12-14] MEDS: metroNIDAZOLE 500 MG TABLET PO SCH ×2 (17:43→20:22)
[2018-12-14] MEDS ORDERED: Docusate Oral Soln 100 MG/10 ML UDC PO PRN (18:02)
[2018-12-15] MEDS: Insulin LISPRO 300 UNITS/3 ML VIAL SQ SCH ×6 (00:15→23:52)
[2018-12-15 03:33] LABS: Hematocrit 27.7 % (35.3-44.9); Hemoglobin 8.2 g/dL (11.5-15.4); Mean Corpuscular HGB Conc 29.6 g/dL (31.6-35.5); Mean Corpuscular Volume 97.9 fL (83.0-100.0); Mean Platelet Volume 12.1 fL (9.4-12.4); Platelet Count 126 K/mcL (140-400); Red Blood Count 2.83 M/mcL (3.82-4.97); Red Cell Distribution Width 19.7 % (11.5-14.5); White Blood Count 9.5 K/mcL (4.3-11.1)
[2018-12-15 03:39] LABS: Calcium 8.3 mg/dL (8.6-10.3); Potassium 4.1 mEq/L (3.5-5.1)
[2018-12-15] MEDS: Levalbuterol Neb 1.25 MG/3 ML IH SCH ×4 (03:50→22:30)
[2018-12-15] MEDS: *HR* Heparin 5,000 UNIT/ML VIAL SQ SCH ×3 (06:11→21:25)
--- NOTE | 2018-12-15 08:14 | Pulmonology Progress Note ---
<Narcisa Yip - Last Filed: 12/15/18 15:44> Date of Encounter: 12/15/18 Time of Encounter: 08:12 Assessment and Plan (1) Acute and chronic respiratory failure with hypoxia Current Visit: Yes Status: Acute Had hemodynamic instability with septic stone and required intubation on 12/01/18 Extubated on 12/12/18 on 4 L of nasal cannula Had several episodes of emesis over the weekend likely aspirated White blood cell count 14.8 this morning Pt. does have hx of COPD and tobacco abuse Chest x-ray is morning did not show any acute abnormalities -Continue scheduled bronchodilators and Symbicort -Due to penicillin allergy ID recommends oral Flagyl 500 mg 3 times a day, day 2 for aspiration pneumonia (2) Septic shock Current Visit: Yes Status: Resolved Resolved. Likely secondary to urosepsis versus upper respiratory infection BCx x2 positive for Escherichia coli Serology PCR shows E. coli Pelvis aspirate culture shows E. coli, Proteus and lactobacillus species --both sensitive to cefepime UCx show E. coli Dr. Salguero placed left ureteral stent on 12/01 -Urology recommends stone extraction after hemodynamic stability -Completed 14 days of IV cefepime, infectious disease consulted -Urine culture shows lactobacillus continue vancomycin day 7 of 14 (3) UTI (urinary tract infection) Current Visit: Yes Status: Acute E. coli PCR positive with Escherichia coli growing in urine UCx show E. coli sensitive to cefepime Additionally renal pelvis fluid culture showed Proteus, lactobacillus and Escherichia coli Completed 14 days of IV cefepime yesterday ID recommends continuing Karina on vancomycin day 7 Qualifiers: Urinary tract infection type: acute cystitis Hematuria presence: with hematuria Qualified Code(s): N30.01 - Acute cystitis with hematuria (4) Obstructive uropathy Current Visit: Yes Status: Acute As seen on CT abd and pelvis Urology following and placed a stent on 12/01 Concerning the calculi may be a nidus for ongoing infection Urology recommends stone extraction after hemodynamic stability Currently hemodynamically stable will retouch base with urology (5) Aspiration pneumonia Current Visit: Yes Status: Suspected Suspected aspiration pneumonia since Ms. Rascon started to have several episodes of emesis after extubation Has decreased breath sounds bilateral lower lung lobes could be atelectasis versus pneumonia Due to penicillin allergy we will continue by mouth Flagyl per Infectious disease recommendation, day 2 Qualifiers: Aspiration pneumonia type: due to vomit Laterality: unspecified laterality Lung location: unspecified part of lung Qualified Code(s): J69.0 - Pneumonitis due to inhalation of food and vomit (6) Acute kidney failure Current Visit: Yes Status: Acute Baseline Creatinine 1.1, this morning creatinine of 2.29 Presented with creatinine of 2.4 on 12/01/18 Having minimal urinary output -Nephrology recommends dialysis as needed -Continue to monitor and avoid nephrotoxic drugs -Continue strict I's and O's -Nephrology consulted (7) Atrial fibrillation with RVR Current Visit: Yes Status: Acute History of atrial fibrillation presented with A. fib and RVR was on Cardizem drip and amiodarone drip initially A. fib was controlled with by mouth metoprolol Currently on low-dose Cardizem drip with oral amiodarone and 25 mg twice a day metoprolol Midodrine added last night due to episodes of hypotension with metoprolol (8) Encephalopathy Current Visit: Yes Status: Acute Ms. 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 Rascon was seen at bedside this morning. Vitals were reviewed and she remained afebrile overnight. She is awake and responds to questions still not oriented to person place or time. Objective PUL Vital signs: Last Vital Signs Temp 98.9 F 12/15/18 07:16 Pulse 90 12/15/18 07:00 Resp 22 12/15/18 07:00 BP 120/64 12/15/18 07:00 Pulse Ox 99 12/15/18 07:00 General appearance: no acute distress Eyes: nonicteric ENT: oropharynx dry Neck: supple Effort: normal Auscultation: bilateral: diminished breath sounds (Lower lung bases) Cardiovascular: irregular rhythm, other (Tachycardia) Gastrointestinal: hypoactive bowel sounds, soft, non-tender Integumentary: normal Extremities: no edema, other (Right BK and left toes amputation) other (Confused and not oriented) Results - Laboratory Findings CBC and BMP: 12/15/18 03:07 12/15/18 03:07 ABG ABG pH 7.39 pH Units (7.32-7.45) 12/11/18 04:50 ABG pCO2 40 mmHg (35-45) 12/11/18 04:50 ABG pO2 91 mmHg (85-104) 12/11/18 04:50 ABG O2 Saturation 97 % (95-98) 12/11/18 04:50 PT/INR, D-dimer PT 13.7 Seconds (9.4-12.1) H 12/03/18 11:55 Abnormal lab findings: Abnormal lab results WBC 14.8 K/mcL (4.3-11.1) H 12/14/18 03:30 RBC 2.83 M/mcL (3.82-4.97) L 12/15/18 03:07 Hgb 8.2 g/dL (11.5-15.4) L 12/15/18 03:07 Hct 27.7 % (35.3-44.9) L 12/15/18 03:07 MCHC 29.6 g/dL (31.6-35.5) L 12/15/18 03:07 RDW 19.7 % (11.5-14.5) H 12/15/18 03:07 Plt Count 126 K/mcL (140-400) L 12/15/18 03:07 MPV 12.5 fL (9.4-12.4) H 12/14/18 03:30 Band Neutrophils % 10.0 % (0-4) H 12/12/18 03:34 Metamyelocytes % 2.0 % (0) H 12/11/18 04:05 Myelocytes % 2.0 % (0) H 12/12/18 03:34 Neutrophils # 14.0 K/mcL (1.6-8.9) H 12/11/18 04:05 Monocytes # 1.4 K/mcL (0.0-1.3) H 12/10/18 04:09 Eosinophils # 1.1 K/mcL (0.0-0.6) H 12/11/18 04:05 Nucleated RBCs/100 WBC 0.2 /100 WBC (0) H 12/12/18 03:34 Smudge Cells Present (Not Present) A 12/08/18 03:47 Platelet Estimate Decreased (Normal) L 12/12/18 03:34 Large Platelets Present (Not Present) A 12/07/18 03:41 Immature Plt Fraction 16.2 % (1.1-6.1) H 12/12/18 03:34 Polychromasia 2+ (Not Present) A 12/12/18 03:34 Hypochromasia Present (Not Present) A 12/11/18 04:05 Anisocytosis 1+ (Not Present) A 12/12/18 03:34 PT 13.7 Seconds (9.4-12.1) H 12/03/18 11:55 APTT 36.4 Seconds (26.0-36.0) H 12/01/18 03:19 Heparin Anti-Xa, Unfract 0.84 IU/mL (0.30-0.70) H 12/11/18 04:05 ABG pH 7.16 pH Units (7.32-7.45) L* 12/03/18 06:23 ABG pCO2 49 mmHg (35-45) H 12/06/18 04:57 ABG pO2 80 mmHg (85-104) L 12/10/18 04:52 ABG HCO3 28 mEq/L (21-27) H 12/05/18 04:22 ABG Total CO2 28 mEq/L (20-26) H 12/10/18 04:52 ABG O2 Saturation 94 % (95-98) L 12/09/18 04:36 ABG Base Excess -9 mEq/L (-2 to 3) L 12/03/18 06:23 Sodium 134 mEq/L (136-145) L 12/14/18 03:30 Chloride 111 mEq/L (98-107) H 12/02/18 04:21 Carbon Dioxide 22 mEq/L (23-29) L 12/15/18 03:07 BUN 24 mg/dL (8-23) H 12/14/18 03:30 Creatinine 2.29 mg/dL (0.60-1.20) H 12/15/18 03:07 Est GFR ( Amer) 26 (> 60) L 12/15/18 03:07 Est GFR (Non-Af Amer) 22 (> 60) L 12/15/18 03:07 Glucose 124 mg/dL (70-105) H 12/15/18 03:07 POC Glucose 123 mg/dL (70-99) H 12/15/18 07:19 Hemoglobin A1c 8.6 % (-5.6) H 12/01/18 03:19 Calculated Osmolality 276 (280-300) L 12/13/18 03:25 Calcium 8.3 mg/dL (8.6-10.3) L 12/15/18 03:07 Phosphorus 2.6 mg/dL (2.7-4.5) L 12/06/18 03:20 Magnesium 1.4 mg/dL (1.6-2.6) L 12/02/18 04:21 Total Bilirubin 1.1 mg/dL (0.3-1.0) H 12/09/18 03:39 Direct Bilirubin 0.6 mg/dL (0.0-0.2) H 12/09/18 03:39 Serum Total Protein 5.5 g/dL (6.4-8.9) L 12/09/18 03:39 Albumin 2.3 g/dL (3.5-5.7) L 12/09/18 03:39 Albumin/Globulin Ratio 0.7 (1.1-2.2) L 12/09/18 03:39 Prealbumin 3.4 mg/dL (17.0-34.0) L 12/03/18 04:00 HDL Cholesterol 22 mg/dL (40-59) L 12/01/18 03:19 Procalcitonin 1.51 ng/mL (0.00-0.15) H 12/11/18 12:10 Urine Clarity Cloudy (Clear) A 12/11/18 12:25 Urine Protein 100 mg/dL (Neg-Trace) H 12/11/18 12:25 Urine Blood Large (Negative) H 12/11/18 12:25 Urine Nitrite Positive (Negative) A 12/01/18 04:23 Ur Leukocyte Esterase Large (Negative) H 12/11/18 12:25 Urine Microscopic RBC 30-50 per hpf (0-3) H 12/11/18 12:25 Urine Microscopic WBC 30-50 per hpf (0-3) H 12/11/18 12:25 Ur Squamous Epith Cells Many per lpf (None-Few) H 12/01/18 04:23 Urine Bacteria Moderate per hpf (None-Few) H 12/01/18 04:23 Ur Culture Indicated? YES (NO) A 12/11/18 12:25 Vancomycin Trough 22 mcg/mL (5-10) H 12/13/18 11:00 E. coli (PCR) DETECTED (Not Detect) A 12/01/18 03:50 Hep Bs Antibody < 3.10 mIU/mL (10.00-) L 12/14/18 11:30 - Microbiology Findings Microbiology Findings: Microbiology, Last 48 Hours 12/01/18 08:11 Surgical Biopsy Culture - Final Left Kidney Lactobacillus species Proteus mirabilis Escherichia coli - Clinical Findings Intake & Output: Intake & Output 12/14/18 12/15/18 12/15/18 23:59 07:59 15:59 Intake Total 90 / 920 50 / 50 Output Total 0 / 632 7 / 7 Balance 90 / 288 43 / 43 Weight 113.6 kg Consult Discharge Plan - Plan Referrals: Kelly Cardozo RN [Primary Care Provider] - <Fede Dickson - Last Filed: 12/15/18 16:36> Date of Encounter: 12/15/18 Objective PUL Vital signs: Last Vital Signs Temp 98.5 F 12/15/18 13:55 Pulse 104 12/15/18 16:00 Resp 20 12/15/18 16:00 BP 105/60 12/15/18 16:00 Pulse Ox 96 12/15/18 16:00 Results - Laboratory Findings CBC and BMP: 12/15/18 03:07 12/15/18 03:07 ABG ABG pH 7.39 pH Units (7.32-7.45) 12/11/18 04:50 ABG pCO2 40 mmHg (35-45) 12/11/18 04:50 ABG pO2 91 mmHg (85-104) 12/11/18 04:50 ABG O2 Saturation 97 % (95-98) 12/11/18 04:50 PT/INR, D-dimer PT 13.7 Seconds (9.4-12.1) H 12/03/18 11:55 Abnormal lab findings: Abnormal lab results WBC 14.8 K/mcL (4.3-11.1) H 12/14/18 03:30 RBC 2.83 M/mcL (3.82-4.97) L 12/15/18 03:07 Hgb 8.2 g/dL (11.5-15.4) L 12/15/18 03:07 Hct 27.7 % (35.3-44.9) L 12/15/18 03:07 MCHC 29.6 g/dL (31.6-35.5) L 12/15/18 03:07 RDW 19.7 % (11.5-14.5) H 12/15/18 03:07 Plt Count 126 K/mcL (140-400) L 12/15/18 03:07 MPV 12.5 fL (9.4-12.4) H 12/14/18 03:30 Band Neutrophils % 10.0 % (0-4) H 12/12/18 03:34 Metamyelocytes % 2.0 % (0) H 12/11/18 04:05 Myelocytes % 2.0 % (0) H 12/12/18 03:34 Neutrophils # 14.0 K/mcL (1.6-8.9) H 12/11/18 04:05 Monocytes # 1.4 K/mcL (0.0-1.3) H 12/10/18 04:09 Eosinophils # 1.1 K/mcL (0.0-0.6) H 12/11/18 04:05 Nucleated RBCs/100 WBC 0.2 /100 WBC (0) H 12/12/18 03:34 Smudge Cells Present (Not Present) A 12/08/18 03:47 Platelet Estimate Decreased (Normal) L 12/12/18 03:34 Large Platelets Present (Not Present) A 12/07/18 03:41 Immature Plt Fraction 16.2 % (1.1-6.1) H 12/12/18 03:34 Polychromasia 2+ (Not Present) A 12/12/18 03:34 Hypochromasia Present (Not Present) A 12/11/18 04:05 Anisocytosis 1+ (Not Present) A 12/12/18 03:34 PT 13.7 Seconds (9.4-12.1) H 12/03/18 11:55 APTT 36.4 Seconds (26.0-36.0) H 12/01/18 03:19 Heparin Anti-Xa, Unfract 0.84 IU/mL (0.30-0.70) H 12/11/18 04:05 ABG pH 7.16 pH Units (7.32-7.45) L* 12/03/18 06:23 ABG pCO2 49 mmHg (35-45) H 12/06/18 04:57 ABG pO2 80 mmHg (85-104) L 12/10/18 04:52 ABG HCO3 28 mEq/L (21-27) H 12/05/18 04:22 ABG Total CO2 28 mEq/L (20-26) H 12/10/18 04:52 ABG O2 Saturation 94 % (95-98) L 12/09/18 04:36 ABG Base Excess -9 mEq/L (-2 to 3) L 12/03/18 06:23 Sodium 134 mEq/L (136-145) L 12/14/18 03:30 Chloride 111 mEq/L (98-107) H 12/02/18 04:21 Carbon Dioxide 22 mEq/L (23-29) L 12/15/18 03:07 BUN 24 mg/dL (8-23) H 12/14/18 03:30 Creatinine 2.29 mg/dL (0.60-1.20) H 12/15/18 03:07 Est GFR ( Amer) 26 (> 60) L 12/15/18 03:07 Est GFR (Non-Af Amer) 22 (> 60) L 12/15/18 03:07 Glucose 124 mg/dL (70-105) H 12/15/18 03:07 POC Glucose 103 mg/dL (70-99) H 12/15/18 11:34 Hemoglobin A1c 8.6 % (-5.6) H 12/01/18 03:19 Calculated Osmolality 276 (280-300) L 12/13/18 03:25 Calcium 8.3 mg/dL (8.6-10.3) L 12/15/18 03:07 Phosphorus 2.6 mg/dL (2.7-4.5) L 12/06/18 03:20 Magnesium 1.4 mg/dL (1.6-2.6) L 12/02/18 04:21 Transferrin 176 mg/dL (203-362) L 12/15/18 09:54 Total Bilirubin 1.1 mg/dL (0.3-1.0) H 12/09/18 03:39 Direct Bilirubin 0.6 mg/dL (0.0-0.2) H 12/09/18 03:39 Serum Total Protein 5.5 g/dL (6.4-8.9) L 12/09/18 03:39 Albumin 2.3 g/dL (3.5-5.7) L 12/09/18 03:39 Albumin/Globulin Ratio 0.7 (1.1-2.2) L 12/09/18 03:39 Prealbumin 3.4 mg/dL (17.0-34.0) L 12/03/18 04:00 HDL Cholesterol 22 mg/dL (40-59) L 12/01/18 03:19 Procalcitonin 1.51 ng/mL (0.00-0.15) H 12/11/18 12:10 Urine Clarity Cloudy (Clear) A 12/11/18 12:25 Urine Protein 100 mg/dL (Neg-Trace) H 12/11/18 12:25 Urine Blood Large (Negative) H 12/11/18 12:25 Urine Nitrite Positive (Negative) A 12/01/18 04:23 Ur Leukocyte Esterase Large (Negative) H 12/11/18 12:25 Urine Microscopic RBC 30-50 per hpf (0-3) H 12/11/18 12:25 Urine Microscopic WBC 30-50 per hpf (0-3) H 12/11/18 12:25 Ur Squamous Epith Cells Many per lpf (None-Few) H 12/01/18 04:23 Urine Bacteria Moderate per hpf (None-Few) H 12/01/18 04:23 Ur Culture Indicated? YES (NO) A 12/11/18 12:25 Vancomycin Trough 22 mcg/mL (5-10) H 12/13/18 11:00 E. coli (PCR) DETECTED (Not Detect) A 12/01/18 03:50 Hep Bs Antibody < 3.10 mIU/mL (10.00-) L 12/14/18 11:30 Herpes Simplex DNA PCR DETECTED A 12/11/18 16:40 - Microbiology Findings Microbiology Findings: Microbiology, Last 48 Hours 12/01/18 08:11 Surgical Biopsy Culture - Final Left Kidney Lactobacillus species Proteus mirabilis Escherichia coli - Clinical Findings Intake & Output: Intake & Output 12/15/18 12/15/18 12/15/18 07:59 15:59 23:59 Intake Total 50 / 810 730 / 810 30 / 810 Output Total 7 2500 / 2507 Balance 43 / -1697 -1770 / -1697 30 / -1697 Weight 113.6 kg
[2018-12-15] MEDS ORDERED: *HR* Heparin 10,000 UNIT/10 ML VIAL IV PRN ×2 (08:21→17:12)
[2018-12-15] MEDS ORDERED: 0.9 % Sodium Chloride 250 ML IVC PRN ×2 (08:21→17:12)
[2018-12-15] MEDS: metroNIDAZOLE 500 MG TABLET PO SCH ×3 (08:25→21:20)
[2018-12-15] MEDS: *HR* Amiodarone 200 MG TABLET PO SCH (08:25)
[2018-12-15] MEDS: Pantoprazole 40 MG VIAL IVP SCH (08:26)
[2018-12-15] MEDS ORDERED: 0.9 % Sodium Chloride 1,000 ML PRIME SCH ×3 (08:30→17:12)
[2018-12-15] MEDS ORDERED: Aminoglycoside Consult 1 EACH MC ONE (09:28)
--- NOTE | 2018-12-15 09:39 | Nephrology Progress Note ---
<Low Kaminski M - Last Filed: 12/15/18 16:08> Date of Encounter: 12/15/18 Time of Encounter: 09:00 - Assessment and Plan (1) Acute kidney injury superimposed on CKD Status: Deleted Known CKD with superimposed RANCHO Etiology likely multifactorial: hypoperfusion, ABX, pyelonephritis Was on CRRT, stopped on 12/12/18 Electrolytes stable since that time Not clinically volume overloaded at this time Serum Creatinine: 2.86-->2.29 today Patient is Oliguric, no signs of renal recovery yet Did complete one round HD yesterday, 0.6 L removed Plan: -We will complete one more round HD today, goal 1-2 L fluid removal -We will reassess daily the need for HD -Avoid unneccesary fluids at this time -Strict I's and O's -Renal dose all medications -Avoid nephrotoxins if at all possible (2) Oliguria Status: Acute UOP <50mLs in last 72Hrs. We will continue to monitor (4) Acute respiratory failure Status: Acute Management per primary team Qualifiers: Respiratory failure complication: hypoxia Qualified Code(s): J96.01 - Acute respiratory failure with hypoxia (5) Sepsis Status: Deleted ABX management per Infectious Disease and primary team Please measure levels and renal dose and medications Avoid nephrotoxins if at all possible Qualifiers: Sepsis type: sepsis due to unspecified organism Qualified Code(s): A41.9 - Sepsis, unspecified organism; R65.20 - Severe sepsis without septic shock Subjective Principal diagnosis: Septic Shock Interval history: Patient seen and examined at bedside. Patient denies any new or worsening complaints. Was on Continuous Dialysis up until 12/12. Remains dialysis dependent, no evidence of renal recovery at this time. Urine output minimal. For one ran HD yesterday, 0.6 L removed, tolerated well. Serum Creatinine 2.86-->2.29 today. Blood pressure stable off pressor support. Of note, hemoglobin 8.2, steadily declining over last 4 days. No evidence of active bleeding at this time. We will continue to monitor and reassess need for dialysis daily. Objective - Vital Signs Vital signs: Vital Signs Temp Pulse Resp BP Pulse Ox 12/15/18 09:00 86 22 117/95 97 12/15/18 08:00 97 22 107/41 100 12/15/18 07:16 98.9 F 12/15/18 07:00 90 22 120/64 99 12/15/18 06:00 100 22 102/60 98 12/15/18 04:52 92 22 96/58 97 12/15/18 04:13 98.3 F 12/15/18 03:53 96 20 96/58 97 12/15/18 03:50 22 96 12/15/18 03:00 99 20 106/56 95 12/15/18 02:14 91 20 89/47 95 12/15/18 01:00 80 20 89/47 95 12/15/18 00:15 98.4 F 12/15/18 00:08 73 22 85/52 95 12/14/18 23:00 90 20 84/48 95 12/14/18 21:55 96 20 92/45 98 12/14/18 21:44 22 98 12/14/18 20:57 99.1 F 12/14/18 20:42 121 22 109/56 94 12/14/18 20:00 107 20 99/56 95 12/14/18 19:00 120 18 87/61 95 12/14/18 18:00 87 20 85/58 95 12/14/18 17:00 120 20 87/56 92 12/14/18 16:00 130 20 97/72 92 12/14/18 15:00 98.6 F 110 20 109/55 92 12/14/18 14:50 103/69 12/14/18 14:35 112/93 12/14/18 14:20 102/78 12/14/18 14:05 118/61 12/14/18 14:00 102 18 89/68 94 12/14/18 13:50 107/62 12/14/18 13:35 112/58 12/14/18 13:20 109/65 12/14/18 13:05 104/54 12/14/18 13:00 107 18 94/68 93 12/14/18 12:50 110/68 12/14/18 12:35 106/71 12/14/18 12:20 118/75 12/14/18 12:05 136/106 12/14/18 12:00 98.9 F 111 21 110/58 90 12/14/18 11:50 98.9 F 19 106/95 12/14/18 11:30 114 21 111/49 95 12/14/18 10:46 22 94 12/14/18 10:30 109 22 103/61 96 Intake and Output 12/14/18 12/15/18 12/15/18 23:59 07:59 15:59 Intake Total 90 / 920 50 / 110 60 / 110 Output Total 0 / 632 7 / 7 Balance 90 / 288 43 / 103 60 / 103 Intake: IV Fluids 60 / 290 50 / 50 Cardizem 50 MG In 0.9 % Sodium 50 / 150 50 / 50 Chloride 40 ML @ 5 MG/HR 5 mls/ hr IVC .Q10H [facility] Rx#:[id number] Maxipime 1,000 MG In Water for inj. (sterile) 10 ML @ 300 mls/ hr IVP Q8HR [facility] Rx#:[id number] Oral 30 0 / 60 60 / 60 Output: Rectal Tube 0 / 0 0 / 0 Catheter 0 / 2 7 / 7 Other: Meal Breakfast Percent of Meal Consumed 0% Weight 113.6 kg Blood Glucose* 159 123 Patient Weight 12/15/18 23:59 Weight 113.6 kg - General Appearance Exam: Gen: Vitals Noted. Patient is oriented x2. Head: Atraumatic, normocephalic ENT: EOMI, anicteric sclera, Mucous Membranes Moist Neck: Temporary Dialysis catheter in place. Dressing C/D/I. CV: Normal rate, irregular rhythm, no murmurs auscultated Lungs: Course breath sounds, no crackles or wheezes appreciated Ext: No evidence of peripheral edema. Right Lower BKA, surgical site well healed. Left lower TMA, site well healed. Skin: no rashes, dry and warm. - Lab 12/15/18 03:07 12/15/18 03:07 Most recent lab results 12/15/18 03:07 Calcium 8.3 L Consult Discharge Plan - Plan Additional Instructions: Finish antibiotic course for remaining 4 days. Avoid nephrotoxic medication. Avoid Xarelto. Start taking Coumadin. INR check in next 3 days. Referrals: Kelly Cardozo CNP [Primary Care Provider] - ([facility]) Prescriptions: Warfarin perPT [Coumadin perPT] 2.5 mg PO DAILY@1800 14 Days #14 each Cefdinir [Omnicef] 300 mg PO QPM 4 Days #4 capsule <Luan Moore - Last Filed: 12/30/18 12:23> Date of Encounter: 12/15/18 - Assessment and Plan (1) Sepsis Status: Deleted I examined this patient and my medical decision-making was reviewed with the Resident Physician. I agree with the documented findings, disposition and tr eatment plan as described except to the extent set forth below. Qualifiers: Sepsis type: sepsis due to unspecified organism Qualified Code(s): A41.9 - Sepsis, unspecified organism; R65.20 - Severe sepsis without septic shock (2) Acute and chronic respiratory failure with hypoxia Status: Acute (3) Hydronephrosis Status: Acute Qualifiers: Hydronephrosis type: with ureteral calculous obstruction Qualified Code(s): N13.2 - Hydronephrosis with renal and ureteral calculous obstruction (4) Acute kidney injury superimposed on CKD Status: Acute I examined this patient and my medical decision-making was reviewed with the Resident Physician. I agree with the documented findings, disposition and treatment plan as described except to the extent set forth below. Patient was seen on dialysis. Objective - Lab 12/25/18 03:25 12/25/18 03:25
[2018-12-15] MEDS: Budesonide/Formoterol 160/4.5 1 PUFF INH IH SCH ×2 (09:47→22:30)
[2018-12-15 10:24] LABS: % Iron Saturation 20 % (15-50); Iron 50 mcg/dL (50-170); Transferrin 176 mg/dL (203-362)
[2018-12-15] MEDS: PrismaSATE BGK 4/2.5 5,000 ML CRRT SCH ×2 (10:35)
[2018-12-15 10:44] LABS: Herpes Simplex PCR Qual Res DETECTED
--- NOTE | 2018-12-15 13:08 | Infectious Disease Progress No ---
ID Progress Note Date of Encounter: 12/15/18 Time of Encounter: 13:02 - Subjective Subjective: Patient seen and examined. No acute events noted overnight. Patient extubated 12/12/18. Patient awakens easily to verbal stimuli. Follows most commands. Denies pain. Reports cough and shortness of breath. Denies nausea, vomiting, or abdominal pain. Per nursing, rectal tube removed due to low output. Lama catheter with scant urine. - Objective CBC & Chem 7: 12/15/18 03:07 12/15/18 03:07 - Line Documentation Line Documentation: Dialysis Catheter (right IJ ), Lama Catheter - Exam Vitals: Temp Pulse Resp BP Pulse Ox 98.9 F 81 21 121/60 97 12/15/18 11:29 12/15/18 12:00 12/15/18 12:00 12/15/18 12:50 12/15/18 12:00 Exam: Head: Atraumatic, normal inspection, normocephalic. Eye: EOMI, PERRLA, no scleral icterus noted. ENT: Mucous membranes moist. No odontogenic infection noted. Poor dentition noted. Scabbed lesions noted to the upper lip. Neck: Normal inspection, no meningismus. Temporary dialysis catheter noted to the right neck with transparent dressing clean, dry, and intact. Respiratory: Clear to auscultation. No rales, respiratory distress, rhonchi, or wheezes noted. Cardiovascular: Irregular rhythm, tachycardic, S1 and S2 audible. No murmurs, rubs, or gallops. GI: Soft, obese, normal bowel sounds. Generalized tenderness noted. Lama catheter draining scant yellow urine. Extremities: Previous TMA site well healed without erythema. 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 Neurological: Alert, oriented to person and place, no focal deficits. Answers most questions appropriately, but sometimes answers "yes" and inappropriately. Psychiatric: normal affect, normal mood. Skin: Dry, intact, warm. Normal color. No rashes. - Assessment and Plan (1) Severe sepsis Current Visit: Yes Status: Acute The patient had 4 sepsis criteria on admission. Likely secondary to pyelonephritis, UTI, and bacteremia. Required vasopressors at one point to maintain adequate perfusion. Improved. White blood cell count actually normalized over the weekend, but redeveloped on Friday --> likely secondary to recent aspiration. WBC normal today. Tachycardia improved. Afebrile. Tachypnea resolved. Blood cultures drawn 12/01/18 were +2 out of 2 sets for Escherichia coli. Repeat blood cultures from 12/02/18 are negative 2 sets. Repeat blood cultures drawn 12/11/18 from the patient's central line are no growth to date 2 sets. Additional repeat blood cultures drawn 12/12/18 from a peripheral stick are no growth to date 2 sets. SNOMED Code(s): 00174080 (2) Leukocytosis Current Visit: Yes Status: Acute Improved initially shortly after admission, but redeveloped. Resolved on Friday, but recurred on Friday --> likely secondary to aspiration. Repeat blood cultures are no growth to date both from the patient's central line and peripherally. Procalcitonin elevated, but the patient has an acute kidney injury. CT of the chest, abdomen, and pelvis ordered, but not done over the weekend. Will hold off for now since the patient's WBC has normalized. Clinically, the patient appears improved. Resolved. Qualifiers: Leukocytosis type: unspecified Qualified Code(s): D72.829 - Elevated white blood cell count, unspecified SNOMED Code(s): 320138144, 665033719 (3) E coli bacteremia Current Visit: Yes Status: Acute Causative organism: Escherichia coli. Source: UTI/pyelonephritis. Blood cultures drawn 12/01/18 were +2 out of 2 sets for Escherichia coli. Repeat blood cultures from 12/02/18 are negative 2 sets. Repeat blood cultures drawn 12/11/18 from the patient's central line are no growth to date 2 sets. Additional repeat blood cultures drawn 12/12/18 from a peripheral stick are no growth to date 2 sets. Completed 14 days of IV Cefepime. SNOMED Code(s): 793230537466 (4) UTI (urinary tract infection) Current Visit: Yes Status: Acute Causative organism: Escherichia coli. Status post cystoscopy, left retrograde pyelogram, and left ureteral stent placement 12/01/18. Completed 14 days of IV cefepime. Qualifiers: Urinary tract infection type: acute cystitis Hematuria presence: with hematuria Qualified Code(s): N30.01 - Acute cystitis with hematuria SNOMED Code(s): 01772107 (5) Ileus Current Visit: Yes Status: Acute Resolved. Bowel regimen initiated per primary team. SNOMED Code(s): 233987017 (6) Acute respiratory failure Current Visit: Yes Status: Acute Intubated 12/01/18 for surgery. Etiology likely pulmonary edema vs unknown . Extubated 12/12/18. Management per the pulmonology team. Qualifiers: Respiratory failure complication: hypoxia Qualified Code(s): J96.01 - Acute respiratory failure with hypoxia SNOMED Code(s): 45504321 (7) Acute kidney injury superimposed on CKD Current Visit: Yes Status: Deleted RANCHO likely multifactorial: Sepsis plus nephrotoxic medications plus other. Nephrology consult. CRRT initiated, but discontinued over the weekend. Transitioned to intermittent hemodialysis 12/14/18. Management per the nephrology team. Dose-adjust medications and avoid nephrotoxins as able. SNOMED Code(s): 41032077 (8) COPD (chronic obstructive pulmonary disease) Current Visit: Yes Status: Chronic Qualifiers: COPD type: unspecified COPD Qualified Code(s): J44.9 - Chronic obstructive pulmonary disease, unspecified SNOMED Code(s): 54122896 (9) Diabetes mellitus Current Visit: Yes Status: Chronic Recommend aggressive glucose monitoring and control. Management per the primary team. Qualifiers: Diabetes mellitus type: type 2 Diabetes mellitus detention insulin use: wit h detention use Diabetes mellitus complication status: with skin complications Diabetes mellitus complication detail: with foot ulcer Qualified Code(s): E11.621 - Type 2 diabetes mellitus with foot ulcer; L97.509 - Non-pressure chronic ulcer of other part of unspecified foot with unspecified severity; Z79.4 - assisted (current) use of insulin SNOMED Code(s): 65217669 (10) Atrial fibrillation Current Visit: Yes Status: Deleted Qualifiers: Atrial fibrillation type: chronic Qualified Code(s): I48.2 - Chronic atrial fibrillation SNOMED Code(s): 79147638 (11) Aspiration into lower respiratory tract Current Visit: Yes Status: Suspected Patient had multiple episodes of emesis over the weekend with subsequent leukocytosis. High index of suspicion for aspiration. Qualifiers: Encounter type: initial encounter Qualified Code(s): T17.800A - Unspecified foreign body in other parts of respiratory tract causing asphyxiation, initial encounter SNOMED Code(s): 208036834 - Recommendations Recommendations: Await repeat blood cultures to finalize. We will hold off on getting CT of the chest, abdomen, and pelvis for now. IF the patient takes a turn to the worse, will plan to byrd-CT. RANCHO management per the nephrology team. Respiratory management per the pulmonology team. Discontinue Vanc. Re-start Cefepime. Will ask pharmacy to assist with dosing. Continue Flagyl 500 mg by mouth 3 times a day given the patient's recent vomiting episodes and concern for aspiration. We are unable to use Zosyn since she has a penicillin allergy. Monitor renal function and dose adjust antibiotics. Consult Discharge Plan - Plan Referrals: Kelly Cardozo RN [Primary Care Provider] -
[2018-12-15] MEDS: *HR* Heparin 5,000 UNIT/ML VIAL IV PRN (14:11)
[2018-12-15] MEDS ORDERED: Diltiazem SR (12hr) 60 MG CAPSULE PO SCH ×2 (14:40→21:00)
[2018-12-15] MEDS ORDERED: Cefepime HCl 1,000 MG in Water for inj. (sterile) 10 ML IVP SCH (16:00)
[2018-12-15] MEDS ORDERED: PrismaSATE BGK 4/2.5 5,000 ML CRRT SCH ×2 (17:12)
[2018-12-15] MEDS ORDERED: Docusate Oral Soln 100 MG/10 ML UDC PO PRN (17:12)
[2018-12-15] MEDS ORDERED: *HR* Dextrose 50 % in Water (Syg) 50 ML SYRINGE IVP PRN (17:12)
[2018-12-15] MEDS ORDERED: D5% in Water 1,000 ML IVC PRN (17:12)
[2018-12-15] MEDS ORDERED: Artificial Tears SOLN 15 ML BOTTLE BOTH EYES PRN (17:12)
[2018-12-15] MEDS ORDERED: *HR* Heparin 5,000 UNIT/ML VIAL IV PRN (17:12)
[2018-12-15] MEDS ORDERED: Phenylephrine 50 MG in D5% in Water 250 ML IVC SCH (17:12)
[2018-12-15] MEDS ORDERED: Naloxone 0.4 MG/ML INJ IVP PRN (17:12)
[2018-12-15] MEDS ORDERED: Dextrose Gel 15 GM/37.5 ML TUBE PO PRN ×2 (17:12)
[2018-12-15] MEDS ORDERED: Ondansetron 4 MG/2 ML VIAL IVP PRN (20:52)
[2018-12-15] MEDS: traMADol 50 MG TABLET PO PRN (21:26)
[2018-12-16] MEDS: Levalbuterol Neb 1.25 MG/3 ML IH SCH ×4 (04:09→22:10)
[2018-12-16] MEDS: *HR* Heparin 5,000 UNIT/ML VIAL SQ SCH ×2 (04:29→12:58)
[2018-12-16 04:59] LABS: Hematocrit 28.2 % (35.3-44.9); Hemoglobin 8.4 g/dL (11.5-15.4); Mean Corpuscular HGB Conc 29.8 g/dL (31.6-35.5); Mean Corpuscular Hemoglobin 29.3 pg (28.0-33.3); Mean Corpuscular Volume 98.3 fL (83.0-100.0); Platelet Count 151 K/mcL (140-400); Red Blood Count 2.87 M/mcL (3.82-4.97); Red Cell Distribution Width 20.5 % (11.5-14.5); White Blood Count 7.4 K/mcL (4.3-11.1)
[2018-12-16 05:21] LABS: Calcium 8.6 mg/dL (8.6-10.3); Potassium 3.7 mEq/L (3.5-5.1)
[2018-12-16] MEDS: Insulin LISPRO 300 UNITS/3 ML VIAL SQ SCH ×5 (05:22→21:01)
[2018-12-16] MEDS ORDERED: Cefepime HCl 500 MG in Water for inj. (sterile) 10 ML IVP ONE (07:53)
--- NOTE | 2018-12-16 09:06 | Urology Progress Note ---
<Lakshmi Zepeda N - Last Filed: 12/16/18 09:04> Date of Encounter: 12/16/18 Time of Encounter: 07:50 - Assessment and Plan (1) Leakage from urinary catheter Current Visit: Yes Status: Acute Assessment and plan: Patient is a 63-year-old female who presents status post cystoscopy, left retropyelogram and left ureteral stent placement as well as Lama catheter placement on 12/01/2018. On my examination of the catheter, it appeared to be in proper place, but it was not draining appropriately. I irrigated 250 mL t hrough catheter but was unable to obtain urine return. I deflated the catheter balloon and repositioned the catheter. I instilled 15 mL in the catheter balloon, and I visualized cloudy, yellow urine flowing in catheter tubing. I explained to nursing staff to call if any further issues, and we will reevaluate patient this afternoon and order a bladder scan. Qualifiers: Encounter type: initial encounter Qualified Code(s): T83.038A - Leakage of other urinary catheter, initial encounter Progress Note Narrative: Patient seen and examined lying in bed in no apparent distress. Patient is alert and oriented 1. Nursing staff at bedside. Nurse reports patient has experienced leaking around urinary catheter, and it is not draining well. Patient is status post cystoscopy, left retrograde pyelogram and left ureteral stent placement from 12/01/[address] Salguero. She had a catheter placed immediately postoperatively. Objective Initial Vital Signs Temp Pulse Resp BP Pulse Ox 98.5 F 106 15 101/67 93 12/01/18 00:23 12/01/18 00:23 12/01/18 00:23 12/01/18 00:23 12/01/18 00:23 - General physical appearance Present: no distress, no pain - Respiratory Present: normal expansion, normal respiratory effort - Abdomen Present: soft, tender (Suprapubic tenderness) - Genitourinary Urine Appearance: Present: Cloudy - Integumentary Present: no rash, no abnormal pigmentation - Musculoskeletal Present: normal posture, other (Bilateral BKA of lower extremities) - Psychiatric Present: oriented to person. Absent: oriented to time, oriented to place, speech is normal, memory intact - Labs 12/16/18 04:20 12/16/18 04:20 Diabetes panel 12/16/18 Range/Units 04:20 Sodium 140 (136-145) mEq/L Potassium 3.7 (3.5-5.1) mEq/L Chloride 102 (98-107) mEq/L Carbon Dioxide 27 (23-29) mEq/L BUN 12 (8-23) mg/dL Creatinine 2.47 H (0.60-1.20) mg/dL Glucose 130 H (70-105) mg/dL Calcium 8.6 (8.6-10.3) mg/dL Calcium panel 12/16/18 Range/Units 04:20 Calcium 8.6 (8.6-10.3) mg/dL Pituitary panel 12/16/18 Range/Units 04:20 Sodium 140 (136-145) mEq/L Potassium 3.7 (3.5-5.1) mEq/L Chloride 102 (98-107) mEq/L Carbon Dioxide 27 (23-29) mEq/L BUN 12 (8-23) mg/dL Creatinine 2.47 H (0.60-1.20) mg/dL Glucose 130 H (70-105) mg/dL Calcium 8.6 (8.6-10.3) mg/dL Adrenal panel 12/16/18 Range/Units 04:20 Sodium 140 (136-145) mEq/L Potassium 3.7 (3.5-5.1) mEq/L Chloride 102 (98-107) mEq/L Carbon Dioxide 27 (23-29) mEq/L BUN 12 (8-23) mg/dL Creatinine 2.47 H (0.60-1.20) mg/dL Glucose 130 H (70-105) mg/dL Calcium 8.6 (8.6-10.3) mg/dL Procedures:Urology - Bladder Irrigation/Clot Evacuation Consent obtained: verbal consent Time out performed: No Irrigation: other (sterile water ) Amount of Clot: none Patient tolerated procedure: well, no complications Continuous Bladder Irrigation: No Complications: none Additional comments: Patient lying in supine position. I obtained assistance from 2 nurses to retract lower extremities. I was able to deflate catheter balloon and advanced into the bladder and irrigate 250 mL of sterile water. Patient tolerated well without difficulty. Consult Discharge Plan - Plan Referrals: Kelly Cardozo RN [Primary Care Provider] - <Joaquim May - Last Filed: 12/16/18 16:50> Date of Encounter: 12/16/18 Progress Note Narrative: Patient was seen and examined independently. Agree with the plan as written by Lakshmi Zepeda. At this time catheter draining well. We will continue to follow along. Patient to keep catheter. Objective Initial Vital Signs Temp Pulse Resp BP Pulse Ox 98.5 F 106 15 101/67 93 12/01/18 00:23 12/01/18 00:23 12/01/18 00:23 12/01/18 00:23 12/01/18 00:23 - Labs 12/16/18 04:20 12/16/18 04:20 Diabetes panel 12/16/18 Range/Units 04:20 Sodium 140 (136-145) mEq/L Potassium 3.7 (3.5-5.1) mEq/L Chloride 102 (98-107) mEq/L Carbon Dioxide 27 (23-29) mEq/L BUN 12 (8-23) mg/dL Creatinine 2.47 H (0.60-1.20) mg/dL Glucose 130 H (70-105) mg/dL Calcium 8.6 (8.6-10.3) mg/dL Calcium panel 12/16/18 Range/Units 04:20 Calcium 8.6 (8.6-10.3) mg/dL Pituitary panel 12/16/18 Range/Units 04:20 Sodium 140 (136-145) mEq/L Potassium 3.7 (3.5-5.1) mEq/L Chloride 102 (98-107) mEq/L Carbon Dioxide 27 (23-29) mEq/L BUN 12 (8-23) mg/dL Creatinine 2.47 H (0.60-1.20) mg/dL Glucose 130 H (70-105) mg/dL Calcium 8.6 (8.6-10.3) mg/dL Adrenal panel 12/16/18 Range/Units 04:20 Sodium 140 (136-145) mEq/L Potassium 3.7 (3.5-5.1) mEq/L Chloride 102 (98-107) mEq/L Carbon Dioxide 27 (23-29) mEq/L BUN 12 (8-23) mg/dL Creatinine 2.47 H (0.60-1.20) mg/dL Glucose 130 H (70-105) mg/dL Calcium 8.6 (8.6-10.3) mg/dL
[2018-12-16] MEDS: Pantoprazole 40 MG VIAL IVP SCH (09:30)
[2018-12-16] MEDS: Budesonide/Formoterol 160/4.5 1 PUFF INH IH SCH ×3 (10:34→22:14)
--- NOTE | 2018-12-16 10:39 | Nephrology Progress Note ---
Date of Encounter: 12/16/18 Time of Encounter: 09:00 - Assessment and Plan (1) Acute kidney injury superimposed on CKD Current Visit: Yes Status: Acute RANCHO on CKDKnown CKD Etiology: Hypoperfusion 2/2 shock, ABX, Pyelonephritis CRRT stopped 12/12 No volume overload, electrolytes stable SCr: 2.86-->2.29-->2.47 today Remains Oliguric, but possible Lama leakage HD: 0.6L removed 12/14, 2.5L removed 12/15 Plan: -Urology consult for catheter leakage -Followup bladder scan -Monitor UOP with Strict I/O -Renal dose meds, avoid nephrotoxins -Monitor for s/s of renal recover (2) Acute respiratory failure Current Visit: Yes Status: Acute Qualifiers: Respiratory failure complication: unspecified whether with hypoxia or hypercapnia Qualified Code(s): J96.00 - Acute respiratory failure, unspecified whether with hypoxia or hypercapnia (3) Oliguria Current Visit: Yes Status: Acute Plan as above Monitor for renal recovery (4) Sepsis Current Visit: Yes Status: Deleted Per Primary team Qualifiers: Sepsis type: sepsis due to unspecified organism Qualified Code(s): A41.9 - Sepsis, unspecified organism; R65.20 - Severe sepsis without septic shock Subjective Principal diagnosis: Septic Shock Interval history: Patient seen and examined at bedside. No acute events overnight. Patient denies any complaints at this time, no new or worsening symptoms. Denies fever/chills, nausea/vomitting, chest pain/shortness of breath. Nursing reports patient did have leakage around the catheter and soaked pads on the bed. Urology consulted, re-positioned catheter with irrigation and return of cloudy yellow urine. Bladder scan ordered and pending at time of encounter. Will monitor UOP throughout the day and monitor for renal recovery. Objective - Vital Signs Vital signs: Vital Signs Temp Pulse Resp BP Pulse Ox 12/16/18 10:34 22 93 12/16/18 07:11 98.0 F 94 22 95/54 91 12/16/18 05:19 98.5 F 97 18 117/72 100 12/16/18 04:09 15 94 12/16/18 01:24 98.9 F 94 17 113/66 100 12/16/18 00:16 18 96 12/15/18 22:30 21 92 12/15/18 20:11 98.3 F 103 17 104/66 93 12/15/18 17:26 98.4 F 108 19 93/51 93 12/15/18 16:00 104 20 105/60 96 12/15/18 13:55 98.5 F 17 108/60 12/15/18 13:35 122/59 12/15/18 13:20 120/59 12/15/18 13:05 118/62 12/15/18 13:00 93 21 118/62 97 12/15/18 12:50 121/60 12/15/18 12:35 123/62 12/15/18 12:20 111/51 12/15/18 12:05 107/60 12/15/18 12:00 91 21 99/54 97 12/15/18 11:50 129/66 12/15/18 11:35 111/58 12/15/18 11:29 98.9 F 12/15/18 11:20 116/55 12/15/18 11:05 119/70 12/15/18 11:00 90 20 111/58 96 12/15/18 10:50 110/63 Intake and Output 12/15/18 12/16/18 12/16/18 23:59 07:59 15:59 Intake Total 810 Output Total 2 Balance Intake: Oral Output: Catheter Other: # Urine Diapers 1 Blood Glucose* 125 126 - General Appearance Exam: Gen: Vitals Noted. Patient is oriented x2. Head: Atraumatic, normocephalic ENT: EOMI, anicteric sclera, Mucous Membranes Moist Neck: Temporary Dialysis catheter in place. Dressing C/D/I. CV: RRR, no murmurs auscultated Lungs: Course breath sounds, no crackles or wheezes appreciated, poor inspiratory effort Ext: No evidence of peripheral edema. Right Lower BKA, surgical site well healed. Left lower TMA, site well healed. Skin: no rashes, dry and warm. : Catheter in place, 50ml cloudy yellow urine noted - Lab 12/16/18 04:20 12/16/18 04:20 Most recent lab results 12/16/18 04:20 Calcium 8.6 Consult Discharge Plan - Plan Referrals: Cas,Kelly, RN [Primary Care Provider] -
[2018-12-16] MEDS: metroNIDAZOLE 500 MG TABLET PO SCH (11:19)
[2018-12-16] MEDS: *HR* Amiodarone 200 MG TABLET PO SCH (12:07)
[2018-12-16] MEDS: MetroNIDAZOLE 500 MG/100 ML 500 MG/100 ML BAG IVPB SCH ×3 (12:57→22:59)
--- NOTE | 2018-12-16 14:24 | Infectious Disease Progress No ---
ID Progress Note Date of Encounter: 12/16/18 Time of Encounter: 14:22 - Subjective Subjective: Patient seen and examined. No acute events noted overnight. Patient extubated 12/12/18. Patient awakens easily to verbal stimuli. Follows most commands. Denies pain, shortness of breath, or cough. Denies nausea, vomiting, or abdominal pain. Lama catheter with scant urine. No BM since rectal tube removed per nursing documentation. - Objective CBC & Chem 7: 12/16/18 04:20 12/16/18 04:20 - Line Documentation Line Documentation: Dialysis Catheter (right IJ ), Lama Catheter - Exam Vitals: Temp Pulse Resp BP Pulse Ox 99.9 F H 106 20 102/52 94 12/16/18 11:43 12/16/18 11:43 12/16/18 11:43 12/16/18 11:43 12/16/18 11:43 Exam: Head: Atraumatic, normal inspection, normocephalic. Eye: EOMI, PERRLA, no scleral icterus noted. ENT: Mucous membranes moist. No odontogenic infection noted. Poor dentition noted. Scabbed lesions noted to the upper lip. Neck: Normal inspection, no meningismus. Temporary dialysis catheter noted to the right neck with transparent dressing clean, dry, and intact. Respiratory: Clear to auscultation. No rales, respiratory distress, rhonchi, or wheezes noted. Cardiovascular: Irregular rhythm, regular rate, S1 and S2 audible. No murmurs, rubs, or gallops. GI: Soft, obese, normal bowel sounds. Generalized tenderness noted. Lama catheter draining small amount yellow urine. Extremities: Previous TMA site well healed without erythema. 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 Neurological: Alert, oriented to person only, no focal deficits. Answers most questions appropriately. Psychiatric: normal affect, normal mood. Skin: Dry, intact, warm. Normal color. No rashes. - Assessment and Plan (1) Severe sepsis Current Visit: Yes Status: Acute The patient had 4 sepsis criteria on admission. Likely secondary to pyelonephritis, UTI, and bacteremia. Required vasopressors at one point to maintain adequate perfusion. Improved. White blood cell count actually normalized over the weekend, but redeveloped on Friday --> likely secondary to recent aspiration. WBC normal r emains today. Tachycardia improved. Afebrile. Tachypnea resolved. Blood cultures drawn 12/01/18 were +2 out of 2 sets for Escherichia coli. Repeat blood cultures from 12/02/18 are negative 2 sets. Repeat blood cultures drawn 12/11/18 from the patient's central line are negative 2 sets. Additional repeat blood cultures drawn 12/12/18 from a peripheral stick are no growth to date 2 sets. SNOMED Code(s): 51109671 (2) Leukocytosis Current Visit: Yes Status: Resolved Improved initially shortly after admission, but redeveloped. Resolved on Friday, but recurred on Friday --> likely secondary to aspiration. Repeat blood cultures are no growth to date both from the patient's central line and peripherally. Procalcitonin elevated, but the patient has an acute kidney injury. CT of the chest, abdomen, and pelvis ordered, but not done over the weekend. Will hold off for now since the patient's WBC has normalized. Clinically, the patient appears improved. Resolved. Qualifiers: Leukocytosis type: unspecified Qualified Code(s): D72.829 - Elevated white blood cell count, unspecified SNOMED Code(s): 517724466, 674921098 (3) E coli bacteremia Current Visit: Yes Status: Acute Causative organism: Escherichia coli. Source: UTI/pyelonephritis. Blood cultures drawn 12/01/18 were +2 out of 2 sets for Escherichia coli. Repeat blood cultures from 12/02/18 are negative 2 sets. Repeat blood cultures drawn 12/11/18 from the patient's central line are no growth to date 2 sets. Additional repeat blood cultures drawn 12/12/18 from a peripheral stick are no growth to date 2 sets. Currently on IV Cefepime. SNOMED Code(s): 287434005800 (4) UTI (urinary tract infection) Current Visit: Yes Status: Acute Causative organism: Escherichia coli. Status post cystoscopy, left retrograde pyelogram, and left ureteral stent placement 12/01/18. Currently on IV Cefepime. Qualifiers: Urinary tract infection type: acute cystitis Hematuria presence: with hematuria Qualified Code(s): N30.01 - Acute cystitis with hematuria SNOMED Code(s): 91950218 (5) Ileus Current Visit: Yes Status: Acute Resolved. Bowel regimen initiated per primary team. SNOMED Code(s): 024709680 (6) Acute respiratory failure Current Visit: Yes Status: Acute Intubated 12/01/18 for surgery. Etiology likely pulmonary edema vs unknown . Extubated 12/12/18. Management per the pulmonology team. Qualifiers: Respiratory failure complication: hypoxia Qualified Code(s): J96.01 - Acute respiratory failure with hypoxia SNOMED Code(s): 00796233 (7) Acute kidney injury superimposed on CKD Current Visit: Yes Status: Resolved RANCHO likely multifactorial: Sepsis plus nephrotoxic medications plus other. Nephrology consult. CRRT initiated, but discontinued over the weekend. Transitioned to intermittent hemodialysis 12/14/18. Management per the nephrology team. Dose-adjust medications and avoid nephrotoxins as able. SNOMED Code(s): 18692513 (8) COPD (chronic obstructive pulmonary disease) Current Visit: Yes Status: Chronic Qualifiers: COPD type: unspecified COPD Qualified Code(s): J44.9 - Chronic obstructive pulmonary disease, unspecified SNOMED Code(s): 57089027 (9) Diabetes mellitus Current Visit: Yes Status: Chronic Recommend aggressive glucose monitoring and control. Management per the primary team. 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 High index of suspicion for aspiration. RADIOLOGY SERVICES MANAGER consulted. Patient unable to do RADIOLOGY SERVICES MANAGER evaluation so she remains NPO. Currently on IV Cefepime and flagyl. Qualifiers: Encounter type: initial encounter Qualified Code(s): T17.800A - Unspecified foreign body in other parts of respiratory tract causing asphyxiation, initial encounter SNOMED Code(s): 976678029 - Recommendations Recommendations: Await repeat blood cultures to finalize. We will hold off on getting CT of the chest, abdomen, and pelvis for now. IF the patient takes a turn to the worse, will plan to byrd-CT. RANCHO management per the nephrology team. Respiratory management per the pulmonology team. ConinueCefepime. Will ask pharmacy to assist with dosing. Continue Flagyl 500 mg IV 3 times a day given the patient's recent vomiting episodes and concern for aspiration. We are unable to use Zosyn since she has a penicillin allergy. Monitor renal function and dose adjust antibiotics. Consult Discharge Plan - Plan Referrals: Kelly Cardozo RN [Primary Care Provider] -
--- NOTE | 2018-12-16 15:36 | Internal Med Progress Note ---
Hospitalist Progress Note - Encounter Date of Encounter: 12/16/18 Time of Encounter: 10:00 - Subjective Interval History: Patient was seen this morning. She looks somnolent however she opens her eyes for verbal stimuli. - Exam Vitals: Temp Pulse Resp BP Pulse Ox 99.9 F H 106 20 102/52 95 12/16/18 11:43 12/16/18 11:43 12/16/18 15:32 12/16/18 11:43 12/16/18 15:32 Exam: `General: Patient is somnolent, alert but oriented 1 Head: Atraumatic, normal inspection, normocephalic. Eye: EOMI, PERRLA, no scleral icterus noted. ENT: Mucous membranes moist. No odontogenic infection noted. Neck: Right [place] Respiratory: Diminished lung sounds. Cardiovascular: Regular rate and regular regular rhythm, S1 and S2 audible. No murmurs, rubs, or gallops. GI: Soft, nondistended, normal bowel sounds. 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 Neurological: Alert, oriented 1 Psychiatric: normal affect, normal mood. Skin: Dry, intact, warm. Normal color. No rashes. - Assessment and Plan (1) Diabetes mellitus Current Visit: Yes Status: Chronic (2) Atrial fibrillation Current Visit: Yes Status: Acute (3) UTI (urinary tract infection) Current Visit: Yes Status: Inactive (4) COPD (chronic obstructive pulmonary disease) Current Visit: Yes Status: Chronic (5) Acute kidney injury superimposed on CKD Current Visit: Yes Status: Acute (6) Severe sepsis Current Visit: Yes Status: Resolved (7) E coli bacteremia Current Visit: Yes Status: Resolved (8) Acute respiratory failure Current Visit: Yes Status: Acute (9) Leukocytosis Current Visit: Yes Status: Resolved (10) Ileus Current Visit: Yes Status: Resolved - Summary of Assessment and Plan Summary of Assessment and Plan: 63-year-old female with a medical history significant for diabetes, A. fib, venous thromboembolism, COPD, coronary artery disease who originally presented on 12/01/2018 with septic shock due to obstructive uropathy. She was initially managed in the intensive care unit for acute hypoxic respiratory failure required mechanical ventilation. Her course was complicated by acute kidney failure due to hypotension and possible ATN requiring intermittent hemodialysis. Risks of her symptoms were managed as following: Aspiration pneumonia: - Currently on 3 L of nasal cannula. On cefepime and Flagyl as per ID. - Speech consult placed, tomorrow for possible MBS. Acute hypoxic respiratory failure: - 2/2 underlying COPD and sepsis. She was extubated on 12/12. - We will resume - Start her on incentive spirometry, continue Symbicort. Atrial fibrillation: - On Cardizem drip at rate of 5mg and oral amiodarone. Not on anticoagulation. Used to be on Xarelto and lopressor at home. - TTE with EF 55%, mild MR. Start on heparin drip until she is able to swallow pills. - We will consult cardiology for medication recommendation. Septic shock: - 2/2 Escherichia coli bacteremia and UTI and obstructive uropathy.. Finished 14 days of cefepime. Follow-up blood cultures were negative, ID is following. - On Midodrine as per ICU team. Obstructive uropathy: - Urology service was consulted, stent was placed on 12/01. Urology service suggested stone extraction after hemodynamic stability.. RANCHO: - likely from ATN, required intermittent HD. She is still producing urine but oliguric. - Check BMP tomorrow. Nephrology is on board. last CRRT was on 12/12 IDDM: - Patient is not eating now, Bgm is under control. Ileus: - Resolved, continue bowel regimen. DVT ppx: on heparin gtt I reviewed independently all laboratory workup, pertinent images including x- rays and CT scans. I also reviewed independently and EKGs and my findings are in the body of my assessment and plan. I ordered the laboratory workup and images myself. I discussed finding with patient's, their families, RN's and consultants involved in the care of the patient. - Time Spent with Patient Total time spent is greater than 50% in coordination of care (as documented) at patient's floor/unit and/or counseling patient: Plan of Care Discussed with: nurse Internal Medicine: Result - Labs CBC & Chem 7: 12/16/18 04:20 12/16/18 04:20 Labs: Short CBC 12/16/18 Range/Units 04:20 WBC 7.4 (4.3-11.1) K/mcL Hgb 8.4 L (11.5-15.4) g/dL Hct 28.2 L (35.3-44.9) % Plt Count 151 (140-400) K/mcL BMP 12/16/18 04:20 Sodium 140 Potassium 3.7 Chloride 102 Carbon Dioxide 27 BUN 12 Creatinine 2.47 H Glucose 130 H Calcium 8.6 - ABG Interpretation ABG results: ABG ABG pH 7.39 pH Units (7.32-7.45) 12/11/18 04:50 ABG pCO2 40 mmHg (35-45) 12/11/18 04:50 ABG pO2 91 mmHg (85-104) 12/11/18 04:50 ABG O2 Saturation 97 % (95-98) 12/11/18 04:50 PT/INR, D-dimer PT 13.7 Seconds (9.4-12.1) H 12/03/18 11:55 Consult Discharge Plan - Plan Referrals: Kelly Cardozo, RN [Primary Care Provider] - (1) Diabetes mellitus Qualifiers: Diabetes mellitus type: type 2 Diabetes mellitus custodial insulin use: with superintendent terminal use Diabetes mellitus complication status: with skin complications Diabetes mellitus complication detail: with foot ulcer Qualified Code(s): E11.621 - Type 2 diabetes mellitus with foot ulcer; L97.509 - Non-pressure chronic ulcer of other part of unspecified foot with unspecified severity; Z79.4 - superintendent terminal (current) use of insulin (2) Atrial fibrillation Qualifiers: Atrial fibrillation type: chronic Qualified Code(s): I48.2 - Chronic atrial fibrillation (3) UTI (urinary tract infection) Qualifiers: Urinary tract infection type: acute pyelonephritis Qualified Code(s): N10 - Acute pyelonephritis (4) COPD (chronic obstructive pulmonary disease) Qualifiers: COPD type: unspecified COPD Qualified Code(s): J44.9 - Chronic obstructive pulmonary disease, unspecified (8) Acute respiratory failure Qualifiers: Respiratory failure complication: hypoxia Qualified Code(s): J96.01 - Acute respiratory failure with hypoxia (9) Leukocytosis Qualifiers: Leukocytosis type: unspecified Qualified Code(s): D72.829 - Elevated white blood cell count, unspecified
[2018-12-16] MEDS ORDERED: *HR* Heparin 5,000 UNIT/ML VIAL IVP PRN (15:59)
[2018-12-16] MEDS ORDERED: *HR* Heparin 5,000 UNIT/ML VIAL IVP ONE (15:59)
[2018-12-16] MEDS: Cefepime HCl 1,000 MG in Water for inj. (sterile) 10 ML IVP SCH (17:37)
[2018-12-16] MEDS: Heparin 25,000 UNIT/250 ML D5W 25,000 UNIT/250 ML IV.SOLN IVC SCH (17:39)
[2018-12-17] MEDS: Insulin LISPRO 300 UNITS/3 ML VIAL SQ SCH ×6 (01:08→20:51)
[2018-12-17] MEDS: Levalbuterol Neb 1.25 MG/3 ML IH SCH ×4 (04:22→22:18)
[2018-12-17 04:27] LABS: Hematocrit 29.7 % (35.3-44.9); Hemoglobin 8.7 g/dL (11.5-15.4); Mean Corpuscular HGB Conc 29.3 g/dL (31.6-35.5); Mean Corpuscular Hemoglobin 28.7 pg (28.0-33.3); Mean Platelet Volume 11.6 fL (9.4-12.4); Platelet Count 176 K/mcL (140-400); Red Blood Count 3.03 M/mcL (3.82-4.97); Red Cell Distribution Width 20.9 % (11.5-14.5); White Blood Count 8.1 K/mcL (4.3-11.1)
[2018-12-17 04:49] LABS: Calcium 8.6 mg/dL (8.6-10.3); Potassium 3.7 mEq/L (3.5-5.1)
[2018-12-17] MEDS: Heparin 25,000 UNIT/250 ML D5W 25,000 UNIT/250 ML IV.SOLN IVC SCH (08:06)
[2018-12-17] MEDS: Pantoprazole 40 MG VIAL IVP SCH (08:08)
[2018-12-17] MEDS: MetroNIDAZOLE 500 MG/100 ML 500 MG/100 ML BAG IVPB SCH (08:08)
--- NOTE | 2018-12-17 08:39 | Urology Progress Note ---
<Lakshmi Zepeda N - Last Filed: 12/17/18 08:35> Date of Encounter: 12/17/18 Time of Encounter: 07:50 - Assessment and Plan (1) Leakage from urinary catheter Current Visit: Yes Status: Acute Assessment and plan: Patient is a 63-year-old female who presents with leakage from her urinary catheter. I was able to reposition patient's catheter yesterday afternoon, and there has been no report of further leakage. Patient's renal function has declined from a serum creatinine of 2.47-3.66, and nurse reports decreased urine output. Bladder scan revealed PVR of 0 x2. Nephrology is following and possiblly planning outpatient dialysis. Urology is always available as needed, and we will follow Ms. Rascon as an outpatient within 1-2 weeks of discharge. Qualifiers: Encounter type: initial encounter Qualified Code(s): T83.038A - Leakage of other urinary catheter, initial encounter Progress Note Subjective: no new complaints Narrative: Patient seen and examined sitting upright in bed in no apparent distress. Patient is undergoing PT OT evaluation. Lama catheter is indwelling and ethan ining transparent, clear yellow urine into bedside bag. Nurse reports no further leaking from catheter. Objective Initial Vital Signs Temp Pulse Resp BP Pulse Ox 98.5 F 106 15 101/67 93 12/01/18 00:23 12/01/18 00:23 12/01/18 00:23 12/01/18 00:23 12/01/18 00:23 - General physical appearance Present: no distress, no pain - Respiratory Present: normal expansion, normal respiratory effort - Abdomen Present: soft, non tender. Absent: distended - Genitourinary Urine Appearance: Present: Clear - Integumentary Present: no rash, no abnormal pigmentation - Musculoskeletal Present: normal posture - Psychiatric Present: oriented to time, oriented to person, oriented to place, speech is normal, memory intact - Labs 12/17/18 03:58 12/17/18 03:58 Diabetes panel 12/17/18 Range/Units 03:58 Sodium 139 (136-145) mEq/L Potassium 3.7 (3.5-5.1) mEq/L Chloride 104 (98-107) mEq/L Carbon Dioxide 25 (23-29) mEq/L BUN 19 (8-23) mg/dL Creatinine 3.66 H (0.60-1.20) mg/dL Glucose 117 H (70-105) mg/dL Calcium 8.6 (8.6-10.3) mg/dL Calcium panel 12/17/18 Range/Units 03:58 Calcium 8.6 (8.6-10.3) mg/dL Pituitary panel 12/17/18 Range/Units 03:58 Sodium 139 (136-145) mEq/L Potassium 3.7 (3.5-5.1) mEq/L Chloride 104 (98-107) mEq/L Carbon Dioxide 25 (23-29) mEq/L BUN 19 (8-23) mg/dL Creatinine 3.66 H (0.60-1.20) mg/dL Glucose 117 H (70-105) mg/dL Calcium 8.6 (8.6-10.3) mg/dL Adrenal panel 12/17/18 Range/Units 03:58 Sodium 139 (136-145) mEq/L Potassium 3.7 (3.5-5.1) mEq/L Chloride 104 (98-107) mEq/L Carbon Dioxide 25 (23-29) mEq/L BUN 19 (8-23) mg/dL Creatinine 3.66 H (0.60-1.20) mg/dL Glucose 117 H (70-105) mg/dL Calcium 8.6 (8.6-10.3) mg/dL Consult Discharge Plan - Plan Referrals: Kelly Cardozo, RN [Primary Care Provider] - <Joaquim May - Last Filed: 12/17/18 15:54> Date of Encounter: 12/17/18 Progress Note Narrative: Patient was discussed with but not personally seen. Agree with plan as written by Lakshmi Zepeda. Objective Initial Vital Signs Temp Pulse Resp BP Pulse Ox 98.5 F 106 15 101/67 93 12/01/18 00:23 12/01/18 00:23 12/01/18 00:23 12/01/18 00:23 12/01/18 00:23 - Labs 12/17/18 03:58 12/17/18 03:58 Diabetes panel 12/17/18 Range/Units 03:58 Sodium 139 (136-145) mEq/L Potassium 3.7 (3.5-5.1) mEq/L Chloride 104 (98-107) mEq/L Carbon Dioxide 25 (23-29) mEq/L BUN 19 (8-23) mg/dL Creatinine 3.66 H (0.60-1.20) mg/dL Glucose 117 H (70-105) mg/dL Calcium 8.6 (8.6-10.3) mg/dL Calcium panel 12/17/18 Range/Units 03:58 Calcium 8.6 (8.6-10.3) mg/dL Pituitary panel 12/17/18 Range/Units 03:58 Sodium 139 (136-145) mEq/L Potassium 3.7 (3.5-5.1) mEq/L Chloride 104 (98-107) mEq/L Carbon Dioxide 25 (23-29) mEq/L BUN 19 (8-23) mg/dL Creatinine 3.66 H (0.60-1.20) mg/dL Glucose 117 H (70-105) mg/dL Calcium 8.6 (8.6-10.3) mg/dL Adrenal panel 12/17/18 Range/Units 03:58 Sodium 139 (136-145) mEq/L Potassium 3.7 (3.5-5.1) mEq/L Chloride 104 (98-107) mEq/L Carbon Dioxide 25 (23-29) mEq/L BUN 19 (8-23) mg/dL Creatinine 3.66 H (0.60-1.20) mg/dL Glucose 117 H (70-105) mg/dL Calcium 8.6 (8.6-10.3) mg/dL
--- NOTE | 2018-12-17 09:00 | Nephrology Progress Note ---
Date of Encounter: 12/17/18 Time of Encounter: 09:00 - Assessment and Plan (1) Acute kidney injury superimposed on CKD Current Visit: Yes Status: Acute RANCHO on CKD Etiology: Hypoperfusion 2/2 shock, ABX, Pyelonephritis CRRT stopped 12/12 No volume overload, electrolytes stable SCr: 2.86-->2.29-->2.47-->3.66 today Remains Oliguric, Lama repositioned, 75 mL yesterday, 80 mL so far today HD: 0.6L removed 12/14, 2.5L removed 12/15 Plan: -We will monitor for renal recovery -If no improvement, will need dialysis tomorrow -will possibly need outpatient dialysis -Monitor UOP with Strict I/O -Renal dose meds, avoid nephrotoxins (2) Acute respiratory failure Current Visit: Yes Status: Acute Improving SPO2 stable on 3 L NC Plan per primary team Qualifiers: Qualified Code(s): J96.00 - Acute respiratory failure, unspecified whether with hypoxia or hypercapnia (3) Oliguria Current Visit: Yes Status: Acute Continue to monitor for renal recovery Subjective Principal diagnosis: Septic Shock Interval history: Patient seen and examined at bedside. No acute events overnight. Patient feels as though she is improving clinically. No new or worsening symptoms at this time. Creatinine did increase to 3.66, will monitor for possible renal recovery today and if no improvement by tomorrow we will send for another round of dialysis. Objective - Vital Signs Vital signs: Vital Signs Temp Pulse Resp BP Pulse Ox 12/17/18 07:30 98.5 F 103 20 119/70 97 12/17/18 04:29 14 95 12/17/18 04:15 98.0 F 89 16 107/66 96 12/16/18 23:52 97.6 F 95 16 121/60 94 12/16/18 22:16 16 99 12/16/18 19:55 98.6 F 93 16 110/55 96 12/16/18 16:28 99.0 F 103 16 95/56 91 12/16/18 15:32 20 95 12/16/18 11:43 99.9 F H 106 20 102/52 94 12/16/18 10:34 22 93 Intake and Output 12/16/18 12/17/18 12/17/18 23:59 07:59 15:59 Intake Total 210 / 210 205 / 324 119 / 324 Output Total 75 / 75 80 / 80 Balance 135 / 135 125 / 244 119 / 244 Intake: IV Fluids 210 / 210 205 / 324 119 / 324 Heparin 25,000 UNIT/250 ML D5W 105 / 224 119 / 224 25,000 unit In 250 ml @ 14 UNIT /KG/HR 15.904 mls/hr IVC . [id number] [facility] Rx#:[id number] Maxipime 1,000 MG In Water for 10 inj. (sterile) 10 ML @ 300 mls/ hr IVP Q24H [facility] Rx#:[id number] Flagyl Premix 500 MG/100 ML 500 200 / 200 100 / 100 mg In 100 ml @ 100 mls/hr IVPB Q8HR [facility] Rx#:[id number] Oral 0 / 0 0 / 0 Output: Urine 0 / 0 Catheter 75 / 75 80 / 80 Urethral (Lama) 0 / 0 40 / 40 Other: Blood Glucose* 119 119 - General Appearance Exam: Gen: Vitals Noted. Patient is oriented x3 Head: Atraumatic, normocephalic ENT: EOMI, anicteric sclera, Mucous Membranes Moist Neck: Temporary Dialysis catheter in place. CV: RRR, no murmurs auscultated Lungs: Course breath sounds, no crackles or wheezes appreciated, poor inspiratory effort Ext: No evidence of peripheral edema. Right Lower BKA, surgical site well healed. Left lower TMA, site well healed. Skin: no rashes, dry and warm. : Catheter in place, 30 mL cloudy dark yellow/light brown urine noted - Lab 12/17/18 03:58 12/17/18 03:58 Most recent lab results 12/17/18 03:58 Calcium 8.6 Consult Discharge Plan - Plan Referrals: Kelly Cardozo, RN [Primary Care Provider] -
[2018-12-17] MEDS: Budesonide/Formoterol 160/4.5 1 PUFF INH IH SCH ×2 (10:43→22:18)
--- NOTE | 2018-12-17 10:49 | Infectious Disease Progress No ---
ID Progress Note Date of Encounter: 12/17/18 Time of Encounter: 10:47 - Subjective Subjective: Patient seen and examined. No acute events noted overnight. Patient extubated 12/12/18. Patient awakens easily to verbal stimuli. Follows commands. Appears more alert today. Denies pain, shortness of breath, or cough. Denies nausea, vomiting, or abdominal pain. Lama catheter with scant urine. No BM since rectal tube removed per nursing documentation. The patient states she is hungry, but is NPO pending MBS later today. - Objective CBC & Chem 7: 12/17/18 03:58 12/17/18 03:58 - Line Documentation Line Documentation: Dialysis Catheter (right IJ ), Lama Catheter - Exam Vitals: Temp Pulse Resp BP Pulse Ox 98.5 F 103 20 119/70 97 12/17/18 07:30 12/17/18 07:30 12/17/18 07:30 12/17/18 07:30 12/17/18 07:30 Exam: Head: Atraumatic, normal inspection, normocephalic. Eye: EOMI, PERRLA, no scleral icterus noted. ENT: Mucous membranes moist. No odontogenic infection noted. Poor dentition noted. Scabbed lesions noted to the upper lip. Neck: Normal inspection, no meningismus. Temporary dialysis catheter noted to the right neck with transparent dressing clean, dry, and intact. Respiratory: Clear to auscultation. No rales, respiratory distress, rhonchi, or wheezes noted. Cardiovascular: Irregular rhythm, regular rate, S1 and S2 audible. No murmurs, rubs, or gallops. GI: Soft, obese, normal bowel sounds. Nontender. Lama catheter draining small amount brown urine. Extremities: Previous TMA site well healed without erythema. 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 Neurological: Alert, oriented to person and knows she is in the hospital but thinks she is in [place], no focal deficits. Answers most questions appropriately. Psychiatric: normal affect, normal mood. Skin: Dry, intact, warm. Normal color. No rashes. - Assessment and Plan (1) Severe sepsis Current Visit: Yes Status: Resolved The patient had 4 sepsis criteria on admission. Likely secondary to pyelonephritis, UTI, and bacteremia. Required vasopressors at one point to maintain adequate perfusion. Improved. White blood cell count actually normalized over the weekend, but redeveloped on Friday --> likely secondary to recent aspiration. WBC normal today. Tachycardia improved. Afebrile. Tachypnea resolved. Blood cultures drawn 12/01/18 were +2 out of 2 sets for Escherichia coli. Repeat blood cultures from 12/02/18 are negative 2 sets. Repeat blood cultures drawn 12/11/18 from the patient's central line are negative 2 sets. Additional repeat blood cultures drawn 12/12/18 from a peripheral stick are negative 2 sets. SNOMED Code(s): 27304623 (2) Leukocytosis Current Visit: Yes Status: Resolved Improved initially shortly after admission, but redeveloped. Resolved on Friday, but recurred on Friday --> likely secondary to aspiration. Repeat blood cultures are no growth to date both from the patient's central line and peripherally. Procalcitonin elevated, but the patient has an acute kidney injury. CT of the chest, abdomen, and pelvis ordered, but not done over the weekend. Will hold off for now since the patient's WBC has normalized. Clinically, the patient appears improved. Resolved. Qualifiers: Leukocytosis type: unspecified Qualified Code(s): D72.829 - Elevated white blood cell count, unspecified SNOMED Code(s): 716862916, 191817172 (3) E coli bacteremia Current Visit: Yes Status: Resolved Causative organism: Escherichia coli. Source: UTI/pyelonephritis. Blood cultures drawn 12/01/18 were +2 out of 2 sets for Escherichia coli. Repeat blood cultures from 12/02/18 are negative 2 sets. Repeat blood cultures drawn 12/11/18 from the patient's central line are negative 2 sets. Additional repeat blood cultures drawn 12/12/18 from a peripheral stick are negative 2 sets. Currently on IV Cefepime. SNOMED Code(s): 555773069564 (4) UTI (urinary tract infection) Current Visit: Yes Status: Acute Causative organism: Escherichia coli. Status post cystoscopy, left retrograde pyelogram, and left ureteral stent placement 12/01/18. Urology consulted and following. Currently on IV Cefepime. Qualifiers: Urinary tract infection type: acute cystitis Hematuria presence: with hematuria Qualified Code(s): N30.01 - Acute cystitis with hematuria SNOMED Code(s): 82510221 (5) Ileus Current Visit: Yes Status: Resolved Resolved. Bowel regimen initiated per primary team. SNOMED Code(s): 306439069 (6) Acute respiratory failure Current Visit: Yes Status: Acute Intubated 12/01/18 for surgery. Etiology likely pulmonary edema vs unknown . Extubated 12/12/18. Management per the pulmonology team. Qualifiers: Respiratory failure complication: unspecified whether with hypoxia or hypercapnia Qualified Code(s): J96.00 - Acute respiratory failure, unspecified whether with hypoxia or hypercapnia SNOMED Code(s): 67578290 (7) Acute kidney injury superimposed on CKD Current Visit: Yes Status: Acute RANCHO likely multifactorial: Sepsis plus nephrotoxic medications plus other. Nephrology consult. CRRT initiated, but discontinued over the weekend. Transitioned to intermittent hemodialysis 12/14/18. Management per the nephrology team. Dose-adjust medications and avoid nephrotoxins as able. SNOMED Code(s): 43861221 (8) COPD (chronic obstructive pulmonary disease) Current Visit: Yes Status: Chronic Qualifiers: COPD type: unspecified COPD Qualified Code(s): J44.9 - Chronic obstructive pulmonary disease, unspecified SNOMED Code(s): 12191999 (9) Diabetes mellitus Current Visit: Yes Status: Chronic Recommend aggressive glucose monitoring and control. Management per the primary team. Qualifiers: Diabetes mellitus type: type 2 Diabetes mellitus exterminator helper termite insulin use: with exterminator helper termite use Diabetes mellitus complication status: with skin complications Diabetes mellitus complication detail: with foot ulcer Qualified Code(s): E11.621 - Type 2 diabetes mellitus with foot ulcer; L97.509 - Non-pressure chronic ulcer of other part of unspecified foot with unspecified severity; Z79.4 - half-way (current) use of insulin SNOMED Code(s): 81174778 (10) Atrial fibrillation Current Visit: Yes Status: Acute Qualifiers: Atrial fibrillation type: chronic Qualified Code(s): I48.2 - Chronic atrial fibrillation SNOMED Code(s): 96120719 (11) Aspiration into lower respiratory tract Current Visit: Yes Status: Suspected Patient had multiple episodes of emesis over the weekend with subsequent l eukocytosis. High index of suspicion for aspiration. BLANKET WINDER HELPER consulted. Planning MBS later today. Currently on IV Cefepime and flagyl. Qualifiers: Encounter type: initial encounter Qualified Code(s): T17.800A - Unspecified foreign body in other parts of respiratory tract causing asphyxiation, initial encounter SNOMED Code(s): 234989052 - Recommendations Recommendations: We will hold off on getting CT of the chest, abdomen, and pelvis for now. IF the patient takes a turn to the worse, will plan to byrd-CT. RANCHO management per the nephrology team. Respiratory management per the pulmonology team. Coninue Cefepime. Will ask pharmacy to assist with dosing. Continue Flagyl 500 mg IV 3 times a day given the patient's recent vomiting episodes and concern for aspiration. We are unable to use Zosyn since she has a penicillin allergy. Monitor renal function and dose adjust antibiotics. Duration of treatment depends on the clinical picture, but likely a total of 4 weeks post-op. Can likely transition to PO when ready for discharge. Consult Discharge Plan - Plan Referrals: Kelly Cardozo RN [Primary Care Provider] -
--- NOTE | 2018-12-17 11:25 | Cardiology Consult Note ---
<Chevy Rendon - Last Filed: 12/17/18 12:04> Date of Encounter: 12/17/18 Time of Encounter: 11:22 Assessment and Plan (1) Atrial fibrillation Current Visit: Yes Status: Acute Patient with history of atrial fibrillation on xarelto. Home medications held during stay for surgery and hypotension. Currently she is rate controlled. She is on cardizem gtt 5 mg /hr. Amiodarone 200 mg daily. Home meds included lopressor 150 mg BID. I do not see amiodarone as a home med. Pt follows with Dr. Hamilton and she was not documented to be taking amiodarone. This appears to be new. AVg HR 97 bpm over last 24 hours. On heparin gtt for AC. TTE with normal EF. EF 55%. Mild MRColten Discussed with Dr. Kim. Now with ARF. GFR 15. She is not a good candidate for NOAC. Coumadin is recommended. Unable to discuss with patient as she is lethargic on my exam. If she agrees recommend pharmacy to dose. Start oral cardizem 120 mg daily when able to take oral medication and wean off cardizem gtt. Patient currently NPO. I will discuss continuing oral amiodarone (held due to pt being NPO) with Dr. Kim. Qualifiers: Atrial fibrillation type: chronic Qualified Code(s): I48.2 - Chronic atrial fibrillation Discussion w patient/family: The assessment and plan as outlined above was discussed with the patient and/or family members who expressed understanding and agreement. All questions were answered. Thank you for involving us in the care of your patient. Please call wi th any questions. History of Present Illness Consult date: 12/17/18 Requesting physician: Martínez Helms Consult reason: medication rec for afib Chief complaint: Resp failure History of present illness: Ms. Ness is a 63 year old female with past medical history significant for atrial fibrilation on xarelto, PVD s/p RBLA and left foot amputation, DM type I I, COPD, and CKD. She is here being treated for uro sepsis d/t urethral obstruction. She underwent stone extraction and urethral stent replacement on 12/01. Hospital course complicated by prolonged intubation, RANCHO, ileus (resoled), e-coli bacteremia, and atrial fibrillation with RVR. She is now extubated and on step-down unit. Cardiology consulted today for medication recommendations for her afib. She is currently rate controlled on cardizem and heparin gtt. At home she was taking xarelto and lopressor 150 mg BID. Lopressor held secondary to hypotension requiring pressor support. Unfortunately she has worsening kidney funtion and may require dialysis in the future and xarelto may not be appr opriate. On my exam she is lethargic. She wakes with tactile stimuli but falls asleep quickly. Denies pain. She is laying flat with no distress. Currently NPO. Past Med Surg Social Fam HX - Past Medical History Medical history: diabetes, renal disease, atrial fibrillation, hyperlipidemia, arthritis, hypertension, pulmonary embolus, other, coronary artery disease, COPD, DVT Additional medical history: R BKA. Vit D Deficiency. Left foot digits amputated Psychiatric history: anxiety, depression - Past Surgical History Surgical History: other Additional surgical history: Left TMA, right BKA - Social History Smoking Status: Current every day smoker Smokeless Tobacco Status: No Alcohol use: none Drug use: none - Family History Mother Family Member Ethnicity: Non- Twin of Family Member: Yes, Identical Living Status: Hx Family Cardiac Disorders: Yes Hx Family Respiratory Disorders: No Hx Family Cancer: Yes (aunt) Hx Family GI Disorders: Yes Hx Family Endocrine Disorder: Yes Hx Family Neurologic Disorders: Yes Hx Family HEENT Disorders: No Hx Family Autoimmune Disorders: No Father Living Status: Hx Family Cardiac Disorders: Yes Hx Family Endocrine Disorder: Yes (diabetes) Brother Living Status: Hx Family Endocrine Disorder: Yes (diabetes) Medications and Allergies Acetaminophen [Tylenol] 1,000 mg PO Q6HR PRN 11/30/18 [History] Cholecalciferol (Vitamin D3) [Vitamin D] 1,000 unit PO DAILY 11/30/18 [History] Clopidogrel Bisulfate [Plavix] 75 mg PO DAILY 11/30/18 [History] Duloxetine HCl [Cymbalta] 60 mg PO DAILY 11/30/18 [History] Gabapentin [Neurontin] 1,200 mg PO TID 11/30/18 [History] Insulin ASPART [Novolog] 18 - 32 unit SQ TID 11/30/18 [History] Liraglutide [Victoza 2-Zaid] 1.2 mg SQ DAILY 11/30/18 [History] Loratadine [Claritin] 10 mg PO DAILY 11/30/18 [History] Metoprolol [Lopressor] 150 mg PO BID 11/30/18 [History] Multivitamin,Stress Formula [Stress Formula] 1 each PO DAILY 11/30/18 [History] Rivaroxaban [Xarelto] 15 mg PO 1700 11/30/18 [History] Spironolactone [Aldactone] 25 mg PO DAILY 11/30/18 [History] Umeclidinium [place] [Incruse Ellipta] 1 puff IH DAILY 11/30/18 [History] amLODIPine [Norvasc] 5 mg PO DAILY 11/30/18 [History] Albuterol Sulfate [Ventolin Hfa] 2 puff IH BID 12/02/18 [History] Atorvastatin [Lipitor] 10 mg PO HS 12/02/18 [History] Fluticasone Propionate Nasal [Flonase] 1 spray NS DAILY 12/02/18 [History] Fluticasone/Salmeterol [Advair 250-50 Diskus] 1 puff IH BID 12/02/18 [History] Fluticasone/Vilanterol [Breo Ellipta 100-25 Mcg INH] 1 puff IH DAILY 12/02/18 [History] Furosemide [Lasix] 60 mg PO BID 12/02/18 [History] Insulin Glargine,Hum.rec.anlog [Basaglar Kwikpen U-100] 36 unit SQ BID 12/02/18 [History] Potassium Chloride [Klor-Con 10] 30 meq PO DAILY 12/02/18 [History] Sertraline [Zoloft] 75 mg PO DAILY 12/02/18 [History] Vitamin B Complex/Vit C/Vit E [Stresstab] 1 tab PO DAILY 12/02/18 [History] Allergy/AdvReac Type Severity Reaction Status Date / Time codeine Allergy See Verified 11/30/18 17:25 Comments latex Allergy See Verified 11/30/18 17:25 Comments Paroxetine [From Paxil] Allergy See Verified 11/30/18 17:25 Comments Penicillins Allergy See Verified 11/30/18 17:25 Comments All Systems Review: The remainder of the systems were reviewed and are negative Physical Examination Vital Signs, Last 4 Hours Temp Pulse Resp BP Pulse Ox 12/17/18 07:30 98.5 F 103 20 119/70 97 General: No Apparent Distress, Other (Lethargic, does not stay awake for exam) HEENT: Atraumatic, Normocephaly, Mucus Membranes Moist Neck: No JVD, Normal carotid pulses Cardiac: Other (irregular) Lungs: Normal Breath Sounds, No Wheeze, Rales, Rhonchi Neuro: No focal deficits noted Abdomen: Soft, Non-Tender Skin: No rashes noted on visualized skin Musculoskeletal: No Chest Wall Tenderness Extremities: No Clubbing, No Cyanosis, No Edema, Other (RBKA and left foot amputation.) Results 12/17/18 03:58 12/17/18 03:58 Lab Results 12/17/18 12/17/18 03:58 03:58 WBC 8.1 Hgb 8.7 L Hct 29.7 L Plt Count 176 Sodium 139 Potassium 3.7 Chloride 104 Carbon Dioxide 25 BUN 19 Creatinine 3.66 H Glucose 117 H Calcium 8.6 - Imaging and Cardiology Echo: report reviewed - EKG Interpretation EKG results cardiology: personally reviewed Consult Discharge Plan - Plan Referrals: Kelly Cardozo RN [Primary Care Provider] - <Kaveh Kim - Last Filed: 12/17/18 19:03> Date of Encounter: 12/17/18 - Attending Attestation Patient was seen and evaluated independently by me. Findings, assessment and plan were discussed at length with patient, questions answered. Agree with nurse practitioner's/resident's documentation. Addition as follows, 63yoCF ho persistent Afib, PAD R-BKA, CAD, PE, CKD, HTN, DM. Consulted for rate ctr and A/C plan. Admitted for septic shock due to obstructive uropathy and respiratory failure, s/p renal stone extraction and urethral stent. Worsening RANCHO with eGFR <15. VR ctr ok on dilt drip, on heparin drip. TTE preserved LVEF. A: Persistent Afib, C 5, VR ok RANCHO on CKD, eGFR<15 Acute on chronic anemia Urosepsis, obstructive uropathy s/p urethral stent BMI>40 COPD ho PE P: if Hb stable and no invasive procedure planned, switch heparin drip to warfarin or eliquis, avoid xarelto BB for rate ctr, cardizem as alternative given sepsis/CAD Kaveh Kim MD, PhD Assessment and Plan Discussion w patient/family: The assessment and plan as outlined above was discussed with the patient and/or family members who expressed understanding and agreement. All questions were answered. Thank you for involving us in the care of your patient. Please call with any questions. History of Present Illness History of present illness: Ms. Ness is a 63 year old female All Systems Review: The remainder of the systems were reviewed and are negative Physical Examination Vital Signs, Last 4 Hours Temp Pulse Resp BP Pulse Ox 12/17/18 16:56 98.2 F 79 20 98/60 94 12/17/18 15:33 16 95 Results 12/17/18 03:58 12/17/18 03:58 Lab Results 12/17/18 12/17/18 03:58 03:58 WBC 8.1 Hgb 8.7 L Hct 29.7 L Plt Count 176 Sodium 139 Potassium 3.7 Chloride 104 Carbon Dioxide 25 BUN 19 Creatinine 3.66 H Glucose 117 H Calcium 8.6
[2018-12-17] MEDS ORDERED: E-Z-HD (BARIUM SULF) SUSPENSION PO ONE (11:55)
[2018-12-17] MEDS ORDERED: E-Z-PAQUE (BARIUM SULF) SUSP 1 BOTTLE PO ONE (11:55)
[2018-12-17] MEDS: *HR* Amiodarone 200 MG TABLET PO SCH (12:16)
[2018-12-17] MEDS: metroNIDAZOLE 500 MG TABLET PO SCH ×2 (14:30→20:53)
--- NOTE | 2018-12-17 15:02 | Internal Med Progress Note ---
Hospitalist Progress Note - Encounter Date of Encounter: 12/17/18 Time of Encounter: 09:00 - Subjective Interval History: Patient was seen this morning. She looks more alert and oriented compared to yesterday. She denied chest pain, shortness of breath. She denied abdominal pain, nausea or vomiting. - Exam Vitals: Temp Pulse Resp BP Pulse Ox 98.7 F 111 18 109/64 96 12/17/18 11:51 12/17/18 11:51 12/17/18 11:51 12/17/18 11:51 12/17/18 11:51 Exam: `General: Patient is alert and oriented 2. Head: Atraumatic, normal inspection, normocephalic. Eye: EOMI, PERRLA, no scleral icterus noted. ENT: Mucous membranes moist. No odontogenic infection noted. Neck: Right [place] Respiratory: Clear to auscultation. Cardiovascular: Regular rate and irregular rhythm, No murmurs, rubs, or gallops. GI: Soft, nondistended, normal bowel sounds. 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 Neurological: Alert, oriented 2 Psychiatric: normal affect, normal mood. Skin: Dry, intact, warm. Normal color. No rashes. - Assessment and Plan (1) Diabetes mellitus Current Visit: Yes Status: Chronic (2) Atrial fibrillation Current Visit: Yes Status: Acute (3) UTI (urinary tract infection) Current Visit: Yes Status: Resolved (4) COPD (chronic obstructive pulmonary disease) Current Visit: Yes Status: Chronic (5) Acute kidney injury superimposed on CKD Current Visit: Yes Status: Acute (6) Severe sepsis Current Visit: Yes Status: Resolved (7) E coli bacteremia Current Visit: Yes Status: Resolved (8) Acute respiratory failure Current Visit: Yes Status: Acute (9) Leukocytosis Current Visit: Yes Status: Resolved (10) Ileus Current Visit: Yes Status: Resolved - Summary of Assessment and Plan Summary of Assessment and Plan: 63-year-old female with a medical history significant for diabetes, A. fib, venous thromboembolism, COPD, coronary artery disease who originally presented on 12/01/2018 with septic shock due to obstructive uropathy. She was initially managed in the intensive care unit for acute hypoxic respiratory failure required mechanical ventilation. Her course was complicated by acute kidney failure due to hypotension and possible ATN requiring intermittent hemodialysis. Risks of her symptoms were managed as following: Aspiration pneumonia: - Currently on 3 L of nasal cannula. On cefepime and Flagyl as per ID. - Speech consult placed, MBS done today. Patient is started on nectar thickened diet. Atrial fibrillation: - was Cardizem drip and oral amiodarone in ICU. Used to be on Xarelto and lopressor at home. Amiodarone and Drip are DC'd and patient was started on lopressor 50 mg BID - TTE with EF 55%, mild MR. not a candidate for NOAC given her kidney dysfunction, will be started on Coumadin before discharge as per cardiology. Continue heparin drip at this point. Acute hypoxic respiratory failure: - 2/2 underlying COPD/aspiration PNA and sepsis. She was extubated on 12/12. - Start her on incentive spirometry, continue Symbicort. Septic shock: - 2/2 Escherichia coli bacteremia and UTI and obstructive uropathy.. Finished 14 days of cefepime. Follow-up blood cultures were negative, ID is following. - On Midodrine as per ICU team. Obstructive uropathy: - Urology service is on board, stent was placed on 12/01. Urology service suggested stone extraction as outpatient. RANCHO: - likely from ATN, required intermittent HD. She is still producing urine but oliguric. Urine output improved from yesterday - Check BMP tomorrow. Nephrology is on board. last CRRT was on 12/12. Positive HD tomorrow. IDDM: - Patient started eating today, was started on Accu-Cheks 3 times a day before meals. Ileus: - Resolved, continue bowel regimen. Anemia: - Hemoglobin is stable at 8.7, no source of bleeding. Likely from her acute illn ess. - We will check occult stool blood, iron profile, b12 and folic acid. DVT ppx: on heparin gtt I reviewed independently all laboratory workup, pertinent images including x-rays and CT scans. I also reviewed independently and EKGs and my findings are in the body of my assessment and plan. I ordered the laboratory workup and images myself. I discussed finding with patient's, their families, RN's and consultants involved in the care of the patient. - Time Spent with Patient Total time spent is greater than 50% in coordination of care (as documented) at patient's floor/unit and/or counseling patient: Plan of Care Discussed with: nurse Internal Medicine: Result - Labs CBC & Chem 7: 12/17/18 03:58 12/17/18 03:58 Labs: Short CBC 12/17/18 Range/Units 03:58 WBC 8.1 (4.3-11.1) K/mcL Hgb 8.7 L (11.5-15.4) g/dL Hct 29.7 L (35.3-44.9) % Plt Count 176 (140-400) K/mcL BMP 12/17/18 03:58 Sodium 139 Potassium 3.7 Chloride 104 Carbon Dioxide 25 BUN 19 Creatinine 3.66 H Glucose 117 H Calcium 8.6 - ABG Interpretation ABG results: ABG ABG pH 7.39 pH Units (7.32-7.45) 12/11/18 04:50 ABG pCO2 40 mmHg (35-45) 12/11/18 04:50 ABG pO2 91 mmHg (85-104) 12/11/18 04:50 ABG O2 Saturation 97 % (95-98) 12/11/18 04:50 PT/INR, D-dimer PT 13.7 Seconds (9.4-12.1) H 12/03/18 11:55 - Impressions Impressions Videofluoroscopic Swallow 12/17/18 07:56 IMPRESSION: Deep penetration with thin liquids. Please see separate speech pathology report for full discussion of findings and recommendations. D/ / 12/17/2018 13:37:59 Catia Navarro MD / Jamilah Hamilton Interpreting Provider: Catia Navarro MD Consult Discharge Plan - Plan Referrals: Kelly Cardozo, RN [Primary Care Provider] - _ (1) Diabetes mellitus Qualifiers: Diabetes mellitus type: type 2 Diabetes mellitus remote computer terminal operator insulin use: with remote computer terminal operator use Diabetes mellitus complication status: with skin complications Diabetes mellitus complication detail: with foot ulcer Qualified Code(s): E11.621 - Type 2 diabetes mellitus with foot ulcer; L97.509 - Non-pressure chronic ulcer of other part of unspecified foot with unspecified severity; Z79.4 - half-way (current) use of insulin (2) Atrial fibrillation Qualifiers: Atrial fibrillation type: chronic Qualified Code(s): I48.2 - Chronic atrial fibrillation (3) UTI (urinary tract infection) Qualifiers: Urinary tract infection type: acute pyelonephritis Qualified Code(s): N10 - Acute pyelonephritis (4) COPD (chronic obstructive pulmonary disease) Qualifiers: COPD type: unspecified COPD Qualified Code(s): J44.9 - Chronic obstructive pulmonary disease, unspecified (8) Acute respiratory failure Qualifiers: Respiratory failure complication: unspecified whether with hypoxia or hypercapnia Qualified Code(s): J96.00 - Acute respiratory failure, unspecified whether with hypoxia or hypercapnia (9) Leukocytosis Qualifiers: Leukocytosis type: unspecified Qualified Code(s): D72.829 - Elevated white blood cell count, unspecified
[2018-12-17] MEDS: Cefepime HCl 1,000 MG in Water for inj. (sterile) 10 ML IVP SCH (17:09)
[2018-12-17] MEDS: traMADol 50 MG TABLET PO PRN (17:22)
[2018-12-18] MEDS: Heparin 25,000 UNIT/250 ML D5W 25,000 UNIT/250 ML IV.SOLN IVC SCH ×3 (02:59→23:34)
[2018-12-18 03:32] LABS: Hematocrit 29.8 % (35.3-44.9); Hemoglobin 8.8 g/dL (11.5-15.4); Mean Corpuscular HGB Conc 29.5 g/dL (31.6-35.5); Mean Corpuscular Hemoglobin 28.8 pg (28.0-33.3); Mean Corpuscular Volume 97.4 fL (83.0-100.0); Mean Platelet Volume 11.9 fL (9.4-12.4); Platelet Count 186 K/mcL (140-400); Red Blood Count 3.06 M/mcL (3.82-4.97); Red Cell Distribution Width 21.1 % (11.5-14.5)
[2018-12-18 03:38] LABS: Calcium 8.6 mg/dL (8.6-10.3); Potassium 3.5 mEq/L (3.5-5.1)
[2018-12-18 04:18] LABS: Folate 21.2 ng/mL (3.0-16.0)
[2018-12-18 04:19] LABS: Vitamin B12 > 1500 pg/mL (250-1100)
[2018-12-18] MEDS: Levalbuterol Neb 1.25 MG/3 ML IH SCH ×4 (04:22→21:55)
[2018-12-18 05:09] LABS: Eosinophils # 0.1 K/mcL (0.0-0.6); Monocytes # 0.8 K/mcL (0.0-1.3); Platelet Estimate Normal (Normal); Reactive Lymphocytes Present (Not Present)
[2018-12-18] MEDS: metroNIDAZOLE 500 MG TABLET PO SCH ×3 (07:53→21:21)
[2018-12-18] MEDS: Insulin LISPRO 300 UNITS/3 ML VIAL SQ SCH ×4 (07:54→21:10)
--- NOTE | 2018-12-18 08:57 | Infectious Disease Progress No ---
ID Progress Note Date of Encounter: 12/18/18 Time of Encounter: 08:55 - Subjective Subjective: Patient seen and examined. No acute events noted overnight. Patient extubated 12/12/18. Sitting up in bed eating breakfast. Denies pain, shortness of breath, or cough. Denies nausea, vomiting, or abdominal pain. Lama catheter with small amount yellow urine. No BM since rectal tube removed per nursing documentation. States her appetite is good. - Objective CBC & Chem 7: 12/18/18 03:00 12/18/18 03:00 - Line Documentation Line Documentation: Dialysis Catheter (right IJ ), Lama Catheter - Exam Vitals: Temp Pulse Resp BP Pulse Ox 98.7 F 80 20 104/64 97 12/18/18 07:12 12/18/18 07:12 12/18/18 07:12 12/18/18 07:12 12/18/18 07:12 Exam: Head: Atraumatic, normal inspection, normocephalic. Eye: EOMI, PERRLA, no scleral icterus noted. ENT: Mucous membranes moist. No odontogenic infection noted. Poor dentition noted. Scabbed lesions noted to the upper lip. Neck: Normal inspection, no meningismus. Temporary dialysis catheter noted to the right neck with transparent dressing clean, dry, and intact. Respiratory: Clear to auscultation. No rales, respiratory distress, rhonchi, or wheezes noted. Cardiovascular: Irregular rhythm, regular rate, S1 and S2 audible. No murmurs, rubs, or gallops. GI: Soft, obese, normal bowel sounds. Nontender. Lama catheter draining small amount yellow urine. Extremities: Previous TMA site well healed without erythema. 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 Neurological: Alert, oriented to person, no focal deficits. Answers most questions appropriately. Psychiatric: normal affect, normal mood. Skin: Dry, intact, warm. Normal color. No rashes. - Assessment and Plan (1) Severe sepsis Current Visit: Yes Status: Resolved The patient had 4 sepsis criteria on admission. Likely secondary to pyelonephritis, UTI, and bacteremia. Required vasopressors at one point to maintain adequate perfusion. Improved. White blood cell count actually normalized over the weekend, but redeveloped on Friday --> likely secondary to recent aspiration. WBC normal today. Tachycardia improved. Afebrile. Tachypnea resolved. Blood cultures drawn 12/01/18 were +2 out of 2 sets for Escherichia coli. Repeat blood cultures from 12/02/18 are negative 2 sets. Repeat blood cultures drawn 12/11/18 from the patient's central line are negative 2 sets. Additional repeat blood cultures drawn 12/12/18 from a peripheral stick are negative 2 sets. SNOMED Code(s): 73175420 (2) Leukocytosis Current Visit: Yes Status: Resolved Improved initially shortly after admission, but redeveloped. Resolved on Friday, but recurred on Friday --> likely secondary to aspiration. Repeat blood cultures are no growth to date both from the patient's central line and peripherally. Procalcitonin elevated, but the patient has an acute kidney injury. CT of the chest, abdomen, and pelvis ordered, but not done over the weekend. Will hold off for now since the patient's WBC has normalized. Clinically, the patient appears improved. Resolved. Qualifiers: Leukocytosis type: unspecified Qualified Code(s): D72.829 - Elevated white blood cell count, unspecified SNOMED Code(s): 164723812, 906603774 (3) E coli bacteremia Current Visit: Yes Status: Resolved Causative organism: Escherichia coli. Source: UTI/pyelonephritis. Blood cultures drawn 12/01/18 were +2 out of 2 sets for Escherichia coli. Repeat blood cultures from 12/02/18 are negative 2 sets. Repeat blood cultures drawn 12/11/18 from the patient's central line are negative 2 sets. Additional repeat blood cultures drawn 12/12/18 from a peripheral stick are negative 2 sets. Currently on IV Cefepime. SNOMED Code(s): 903470056728 (4) UTI (urinary tract infection) Current Visit: Yes Status: Acute Causative organism: Escherichia coli. Status post cystoscopy, left retrograde pyelogram, and left ureteral stent placement 12/01/18. Urology consulted and following. Currently on IV Cefepime. Qualifiers: Urinary tract infection type: acute cystitis Hematuria presence: with hematuria Qualified Code(s): N30.01 - Acute cystitis with hematuria SNOMED Code(s): 88679298 (5) Ileus Current Visit: Yes Status: Resolved Resolved initially, but no BM since rectal tube removed. Bowel regimen initiated per primary team. SNOMED Code(s): 197745742 (6) Acute respiratory failure Current Visit: Yes Status: Acute Intubated 12/01/18 for surgery. Etiology likely pulmonary edema vs unknown . Extubated 12/12/18. Management per the pulmonology team. Qualifiers: Respiratory failure complication: unspecified whether with hypoxia or hypercapnia Qualified Code(s): J96.00 - Acute respiratory failure, unspecified whether with hypoxia or hypercapnia SNOMED Code(s): 43855407 (7) Acute kidney injury superimposed on CKD Current Visit: Yes Status: Acute RANCHO likely multifactorial: Sepsis plus nephrotoxic medications plus other. Nephrology consult. CRRT initiated, but discontinued over the weekend. Transitioned to intermittent hemodialysis 12/14/18. Management per the nephrology team. Dose-adjust medications and avoid nephrotoxins as able. SNOMED Code(s): 42892779 (8) COPD (chronic obstructive pulmonary disease) Current Visit: Yes Status: Chronic Qualifiers: COPD type: unspecified COPD Qualified Code(s): J44.9 - Chronic obstructive pulmonary disease, unspecified SNOMED Code(s): 10235771 (9) Diabetes mellitus Current Visit: Yes Status: Chronic Recommend aggressive glucose monitoring and control. Management per the primary team. Qualifiers: Diabetes mellitus type: type 2 Diabetes mellitus termite technician insulin use: with usp use Diabetes mellitus complication status: with skin complications Diabetes mellitus complication detail: with foot ulcer Qualified Code(s): E11.621 - Type 2 diabetes mellitus with foot ulcer; L97.509 - Non-pressure chronic ulcer of other part of unspecified foot with unspecified severity; Z79.4 - skilled nursing (current) use of insulin SNOMED Code(s): 05641971 (10) Atrial fibrillation Current Visit: Yes Status: Acute Qualifiers: Atrial fibrillation type: chronic Qualified Code(s): I48.2 - Chronic atrial fibrillation SNOMED Code(s): 24857376 (11) Aspiration into lower respiratory tract Current Visit: Yes Status: Suspected Patient had multiple episodes of emesis over the weekend with subsequent leukocytosis. High index of suspicion for aspiration. ROLL TENSION TESTER consulted. Status post MBS that revealed aspiration with thin liquids. NTL and mech altered textures recommended. Currently on IV Cefepime and flagyl. Qualifiers: Encounter type: initial encounter Qualified Code(s): T17.800A - Unspecified foreign body in other parts of respiratory tract causing asphyxiation, initial encounter SNOMED Code(s): 937052925 - Recommendations Recommendations: RANCHO management per the nephrology team. Respiratory management per the pulmonology team. Continue Cefepime. Will ask pharmacy to assist with dosing. Continue Flagyl 500 mg IV 3 times a day given the patient's recent vomiting episodes and concern for aspiration. We are unable to use Zosyn since she has a penicillin allergy. Monitor renal function and dose adjust antibiotics. Duration of treatment depends on the clinical picture, but likely a total of 4 weeks post-op. Can likely transition to PO when ready for discharge. Consult Discharge Plan - Plan Referrals: Kelly Cardozo RN [Primary Care Provider] -
--- NOTE | 2018-12-18 09:12 | Cardiology Progress Note ---
Date of Encounter: 12/18/18 Time of Encounter: 09:12 Assessment and Plan (1) Atrial fibrillation Current Visit: Yes Status: Acute Hx of atrial fibrillation on xarelto. Home medications held during stay for surgery and hypotension. Currently she is rate controlled on PO Lopressor 50mg BID. Home meds included lopressor 150 mg BID. Restarted reduced dose d/t hypotension. Continue decreased dose since HR /BP are controlled. 12 hr tele AVG HR 81. TTE with normal EF. EF 55%. Mild MR. Currently on heparin gtt for AC. Discussed with Dr. Kim. Now with ARF. GFR 15. She is not a good candidate for NOAC. Coumadin is recommended. Hgb stable but noted to drop from admission. Recommend starting coumadin prior to discharge if no concern for bleeding. Appreciate hospitalist input on anemia. Cardiology signing off. Reconsult PRN. Will coordinate outpt follow-up in 3-4 weeks. Qualifiers: Atrial fibrillation type: chronic Qualified Code(s): I48.2 - Chronic atrial fibrillation Discussion w patient/family: The assessment and plan as outlined above was discussed with the patient and/or family members who expressed understanding and agreement. All questions were answered. Thank you for involving us in the care of your patient. Please call with any questions. I will discuss all the above with Dr. Kim and make changes as necessary. Subjective Principal diagnosis: Septic Shock Interval history: No acute complaints this AM. 12 hr tele AVG HR 81, A-Fib. Objective Vital Signs, Last 4 Hours Temp Pulse Resp BP Pulse Ox 12/18/18 07:12 98.7 F 80 20 104/64 97 Vital Signs Temp Pulse Resp BP Pulse Ox 12/18/18 07:12 98.7 F 80 20 104/64 97 12/18/18 04:22 16 95 12/18/18 04:02 98.3 F 82 20 103/71 96 12/17/18 22:32 97.5 F L 96 20 92/58 98 12/17/18 19:16 98.5 F 84 17 144/69 96 12/17/18 16:56 98.2 F 79 20 98/60 94 12/17/18 15:33 16 95 12/17/18 11:51 98.7 F 111 18 109/64 96 12/17/18 10:43 16 95 Intake and Output 12/17/18 12/18/18 12/18/18 23:59 07:59 15:59 Intake Total 418 / 1184 95 / 95 Output Total 50 / 230 50 / 50 Balance 368 / 954 45 / 45 Intake: IV Fluids 178 / 704 95 / 95 Heparin 25,000 UNIT/250 ML D5W 68 / 379 95 / 95 25,000 unit In 250 ml @ 14 UNIT /KG/HR 15.904 mls/hr IVC . [id number] [facility] Rx#:[id number] Maxipime 500 MG In Water for inj. (sterile) 10 ML @ 300 mls/ hr IVP ONCE ONE Rx#:[id number] Flagyl Premix 500 MG/100 ML 500 100 / 200 mg In 100 ml @ 100 mls/hr IVPB Q8HR [facility] Rx#:[id number] Oral 240 / 480 Output: Catheter 50 / 230 50 / 50 Urethral (Lama) 0 / 40 50 / 50 Other: Meal Dinner Percent of Meal Consumed 50% Blood Glucose* 159 138 General: Conversant, No Apparent Distress HEENT: Atraumatic, Normocephaly, Mucus Membranes Moist Neck: No JVD, Normal carotid pulses Cardiac: Other (irregularly irregular) Lungs: Other (diminished) Neuro: Alert and responsive, No focal deficits noted Abdomen: Soft, Non-Tender Skin: No rashes noted on visualized skin Musculoskeletal: No Chest Wall Tenderness Extremities: No Clubbing, No Cyanosis, No Edema, Normal Pulses Results 12/18/18 03:00 12/18/18 03:00 Lab Results 12/18/18 12/18/18 03:00 03:00 WBC 7.0 Hgb 8.8 L Hct 29.8 L Plt Count 186 Sodium 139 Potassium 3.5 Chloride 104 Carbon Dioxide 26 BUN 24 H Creatinine 4.86 H Glucose 155 H Calcium 8.6 Short CBC 12/18/18 Range/Units 03:00 WBC 7.0 (4.3-11.1) K/mcL Hgb 8.8 L (11.5-15.4) g/dL Hct 29.8 L (35.3-44.9) % Plt Count 186 (140-400) K/mcL Neutrophils # 5.0 (1.6-8.9) K/mcL BMP 12/18/18 Range/Units 03:00 Sodium 139 (136-145) mEq/L Potassium 3.5 (3.5-5.1) mEq/L Chloride 104 (98-107) mEq/L Carbon Dioxide 26 (23-29) mEq/L BUN 24 H (8-23) mg/dL Creatinine 4.86 H (0.60-1.20) mg/dL Glucose 155 H (70-105) mg/dL Calcium 8.6 (8.6-10.3) mg/dL Impressions Videofluoroscopic Swallow 12/17/18 07:56 IMPRESSION: Deep penetration with thin liquids. Please see separate speech pathology report for full discussion of findings and recommendations. D/ / 12/17/2018 13:37:59 Catia Navarro MD / Jamilah Hamilton Interpreting Provider: Catia Navarro MD Active Medications Acetaminophen (Tylenol) 650 mg PO Q6HR PRN PRN Reason: Mild Pain/Fever Stop: 06/13/19 19:59 Artificial Tears (Akwa Tears) 1 drop BOTH EYES Q2HR PRN; Protocol PRN Reason: Dry Eyes Stop: 06/02/19 09:10 Budesonide/Formoterol Fumarate (Symbicort) 2 puff IH BIDR [facility]; Protocol Stop: 06/02/19 22:01 Last Admin: 12/17/18 22:18 Dose: Not Given Documented by: Dextrose/Water (Dextrose 50% (Syg)) 25 ml IVP AD PRN PRN Reason: Hypoglycemia Stop: 06/05/19 11:24 Docusate Sodium (Colace) 100 mg PO BID PRN; Protocol PRN Reason: Constipation Stop: 06/08/19 12:46 Glucagon (Glucagen) 1 mg IM ONCE PRN PRN Reason: Hypoglycemia Stop: 06/05/19 11:24 Glucose (Gluctose) 15 gm PO ONCE PRN PRN Reason: Hypoglycemia Stop: 06/05/19 11:24 Glucose (Gluctose) 30 gm PO ONCE PRN PRN Reason: Hypoglycemia Stop: 06/05/19 11:24 Heparin Sodium (Porcine) (Heparin) 0 unit IV ONCE PRN PRN Reason: SEE COMMENTS Stop: 06/04/19 10:53 Heparin Sodium (Porcine) (Heparin) 8,000 unit 70 unit/kg (8000 unit) IVP Q6HR PRN PRN Reason: SEE COMMENTS Stop: 06/17/19 16:00 Heparin Sodium (Porcine) (Heparin) 4,000 unit 35 unit/kg (4000 unit) IVP Q6H PRN PRN Reason: SEE COMMENTS Stop: 06/17/19 16:00 Sodium Chloride (0.9 % Sodium Chloride) 250 mls @ 937.5 mls/hr IVC .Q16M PRN PRN Reason: Hypotension Stop: 06/16/19 08:22 Cefepime HCl 1,000 mg/ Sterile (Water) 10 mls @ 300 mls/hr IVP Q24H [facility] Stop: 06/16/19 16:01 Last Admin: 12/17/18 17:09 Dose: 300 mls/hr Documented by: Dextrose (Dextrose 5%) 1,000 mls @ 100 mls/hr IVC .Q10H PRN PRN Reason: HYPOGLYCEMIA Stop: 06/05/19 11:24 Sodium Chloride (0.9 % Sodium Chloride) 1,000 mls @ 0 mls/hr PRIME .Q0M [facility] Stop: 06/16/19 08:31 Heparin Sodium/Dextrose (Heparin 25,000 Unit/250 Ml D5w) 25,000 unit in 250 mls @ 15.904 mls/hr IVC .[id number] [facility]; Protocol Stop: 06/17/19 16:01 Last Admin: 12/18/18 02:59 Dose: 12 unit/kg/hr, 13.6 mls/hr Documented by: Insulin Human Lispro (Humalog) 0 units SQ TIDAC [facility]; Protocol Stop: 06/18/19 16:31 Last Admin: 12/18/18 07:54 Dose: Not Given Documented by: Insulin Human Lispro (Humalog) 0 units SQ HS [facility]; Protocol Stop: 06/18/19 21:01 Last Admin: 12/17/18 20:51 Dose: Not Given Documented by: Levalbuterol HCl (Xopenex) 1.25 mg IH [id number] [facility] Stop: 06/02/19 05:16 Last Admin: 12/18/18 04:22 Dose: 1.25 mg Documented by: Metoprolol Tartrate (Lopressor) 50 mg PO BID [facility] Stop: 06/18/19 14:01 Last Admin: 12/18/18 07:53 Dose: 50 mg Documented by: Metronidazole (Flagyl) 500 mg PO TID [facility]; Protocol Stop: 06/18/19 15:01 Last Admin: 12/18/18 07:53 Dose: 500 mg Documented by: Midodrine (Proamatine) 10 mg PO 0800,1200,1800 [facility] Stop: 06/16/19 14:16 Last Admin: 12/18/18 07:53 Dose: 10 mg Documented by: Naloxone HCl (Narcan) 0.4 mg IVP Q2MPRN PRN PRN Reason: SEE COMMENTS Stop: 06/02/19 00:18 Omeprazole (Prilosec) 40 mg PO DAILY@0730 [facility]; Protocol Stop: 06/19/19 07:31 Last Admin: 12/18/18 07:53 Dose: 40 mg Documented by: Ondansetron HCl (Zofran) 4 mg IVP Q8H PRN PRN Reason: Nausea And Vomiting Stop: 06/16/19 20:53 Quetiapine Fumarate (Seroquel) 50 mg PO HS [facility]; Protocol Stop: 06/07/19 21:01 Last Admin: 12/17/18 20:53 Dose: 50 mg Documented by: Senna (Senna) 17.2 mg PO BID PRN PRN Reason: Constipation Stop: 06/10/19 11:01 Tramadol HCl (Ultram) 50 mg PO Q6H PRN PRN Reason: Moderate Pain Stop: 06/16/19 20:55 Last Admin: 12/17/18 17:22 Dose: 50 mg Documented by: - Imaging and Cardiology Echo: report reviewed - EKG Interpretation EKG results cardiology: other (12 hr tele AVG HR 81, A-Fib) Consult Discharge Plan - Plan Referrals: Kelly Cardozo, RN [Primary Care Provider] -
[2018-12-18] MEDS: Budesonide/Formoterol 160/4.5 1 PUFF INH IH SCH ×2 (09:40→21:55)
--- NOTE | 2018-12-18 13:44 | Nephrology Progress Note ---
Date of Encounter: 12/18/18 Time of Encounter: 09:00 - Assessment and Plan (1) Acute kidney injury superimposed on CKD Current Visit: Yes Status: Acute RANCHO on CKD Etiology: Hypoperfusion 2/2 shock, ABX, Pyelonephritis CRRT stopped 12/12, Intermitted HD since then, tolerating well No volume overload, electrolytes stable SCr: 2.86-->2.29-->2.47-->3.66-->4.86 Today UOP: oliguric, 230mL yesterday HD: 0.6L removed 12/14, 2.5L removed 12/15 Biochemically renal function worse off today than yesterday Clinically stable, no acute indication for HD at this time Plan: -Will plan for one round HD tomorrow -No signs of Renal Recover as of yet, will continue to monitor closely -Will reassess daily the need for HD -If no improvement, may ultimately require Outpatient Dialysis with Tunneled Dialysis Catheter -Continue to renally dose medications and avoid nephrotoxins. -Monitor Urine output with strict I/O, 1.5L fluid restriction (2) Acute respiratory failure Current Visit: Yes Status: Acute Patients respiratory status continues to improve Currently tolerating 2L NC with adequate SpO2 No crackles on exam, no clinically fluid overloaded Will continue to monitor Defer and treatment to primary team Qualifiers: Respiratory failure complication: unspecified whether with hypoxia or hypercapnia Qualified Code(s): J96.00 - Acute respiratory failure, unspecified whether with hypoxia or hypercapnia (3) Oliguria Current Visit: Yes Status: Acute Improved yesterday slightly, 230mLs UOP Will continue to monitor closely Rest of plan as above Subjective Principal diagnosis: Septic Shock Interval history: Patient seen and examined at bedside. No acute events overnight. Patient feels as though she is improving clinically. States she has no pain in her breathing is improved. Denies cough, shortness of breath, abdominal pain, fevers. No new or worsening symptoms at this time. Very conversant today, much more so than previous encounters. Vitals noted. Patient had increasing urine output yesterday but still remains oliguric, 230 mLs total. Objective - Vital Signs Vital signs: Vital Signs Temp Pulse Resp BP Pulse Ox 12/18/18 11:27 97.7 F 76 18 103/60 94 12/18/18 09:40 18 94 12/18/18 07:12 98.7 F 80 20 104/64 97 12/18/18 04:22 16 95 12/18/18 04:02 98.3 F 82 20 103/71 96 12/17/18 22:32 97.5 F L 96 20 92/58 98 12/17/18 19:16 98.5 F 84 17 144/69 96 12/17/18 16:56 98.2 F 79 20 98/60 94 12/17/18 15:33 16 95 Intake and Output 12/17/18 12/18/18 12/18/18 23:59 07:59 15:59 Intake Total 418 / 1184 95 / 95 Output Total 50 / 230 50 / 50 Balance 368 / 954 45 / 45 Intake: IV Fluids 178 / 704 95 / 95 Heparin 25,000 UNIT/250 ML D5W 68 / 379 95 / 95 25,000 unit In 250 ml @ 14 UNIT /KG/HR 15.904 mls/hr IVC . [id number] [facility] Rx#:[id number] Maxipime 500 MG In Water for inj. (sterile) 10 ML @ 300 mls/ hr IVP ONCE ONE Rx#:[id number] Flagyl Premix 500 MG/100 ML 500 100 / 200 mg In 100 ml @ 100 mls/hr IVPB Q8HR [facility] Rx#:[id number] Oral 240 / 480 Output: Catheter 50 / 230 50 / 50 Urethral (Lama) 0 / 40 50 / 50 Other: Meal Dinner Percent of Meal Consumed 50% Blood Glucose* 159 138 193 - General Appearance Exam: Gen: Vitals Noted. Patient is oriented x3 Head: Atraumatic, normocephalic ENT: EOMI, anicteric sclera, Mucous Membranes Moist Neck: Right IJ Temporary Dialysis Catheter in place CV: RRR, no murmurs auscultated Lungs: Course breath sounds, no crackles or wheezes appreciated, poor inspiratory effort Ext: No evidence of peripheral edema. Right Lower BKA, surgical site well healed. Left lower TMA, site well healed. Skin: no rashes, dry and warm. : Catheter in place, 30 mL cloudy dark yellow/light brown urine noted - Lab 12/18/18 03:00 12/18/18 03:00 Most recent lab results 12/18/18 03:00 Calcium 8.6 Consult Discharge Plan - Plan Referrals: Kelly Cardozo, RN [Primary Care Provider] -
--- NOTE | 2018-12-18 15:05 | Internal Med Progress Note ---
Hospitalist Progress Note - Encounter Date of Encounter: 12/18/18 Time of Encounter: 10:00 - Subjective Interval History: Patient was seen this morning, no events overnight. She looks more alert and oriented today. She denied chest pain, shortness of breath or palpitation. - Exam Vitals: Temp Pulse Resp BP Pulse Ox 97.7 F 76 18 103/60 94 12/18/18 11:27 12/18/18 11:27 12/18/18 11:27 12/18/18 11:27 12/18/18 11:27 Exam: `General: Patient is alert and oriented 3. Head: Atraumatic, normal inspection, normocephalic. Eye: EOMI, PERRLA, no scleral icterus noted. ENT: Mucous membranes moist. No odontogenic infection noted. Neck: Right Udal Respiratory: Clear to auscultation. Cardiovascular: Regular rate and irregular rhythm, No murmurs, rubs, or gallops. GI: Soft, nondistended, normal bowel sounds. 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 Neurological: Alert, oriented 3 Psychiatric: normal affect, normal mood. Skin: Dry, intact, warm. Normal color. No rashes. - Assessment and Plan (1) Diabetes mellitus Current Visit: Yes Status: Chronic (2) Atrial fibrillation Current Visit: Yes Status: Acute (3) UTI (urinary tract infection) Current Visit: Yes Status: Resolved (4) COPD (chronic obstructive pulmonary disease) Current Visit: Yes Status: Chronic (5) Acute kidney injury superimposed on CKD Current Visit: Yes Status: Acute (6) Severe sepsis Current Visit: Yes Status: Resolved (7) E coli bacteremia Current Visit: Yes Status: Resolved (8) Acute respiratory failure Current Visit: Yes Status: Acute (9) Leukocytosis Current Visit: Yes Status: Resolved (10) Ileus Current Visit: Yes Status: Resolved - Summary of Assessment and Plan Summary of Assessment and Plan: 63-year-old female with a medical history significant for diabetes, A. fib, venous thromboembolism, COPD, coronary artery disease who originally presented on 12/01/2018 with septic shock due to obstructive uropathy. She was initially managed in the intensive care unit for acute hypoxic respiratory failure required mechanical ventilation. Her course was complicated by acute kidney failure due to hypotension and possible ATN requiring intermittent hemodialysis. Risks of her symptoms were managed as following: Aspiration pneumonia: - Currently on 2 L of nasal cannula. On cefepime and Flagyl as per ID. - Speech consult placed, MBS done. Patient is started on nectar thickened diet. Atrial fibrillation: - was Cardizem drip and oral amiodarone in ICU. Used to be on Xarelto and lopressor at home. Amiodarone and Drip are DC'd and patient was started on lopressor 50 mg BID - TTE with EF 55%, mild MR. not a candidate for NOAC given her kidney dysfunction, will be started on Coumadin before discharge as per cardiology. Continue heparin drip at this point. Acute hypoxic respiratory failure: - 2/2 underlying COPD/aspiration PNA and sepsis. She was extubated on 12/12. - Start her on incentive spirometry, continue Symbicort. Septic shock: - 2/2 Escherichia coli bacteremia and UTI and obstructive uropathy.. Finished 14 days of cefepime. Follow-up blood cultures were negative, ID is following. - On Midodrine as per ICU team. Obstructive uropathy: - Urology service is on board, stent was placed on 12/01. Urology service suggested stone extraction as outpatient. RANCHO: - likely from ATN, required intermittent HD. She is still producing urine but oliguric. - Check BMP tomorrow. Nephrology is on board. Possible HD tomorrow. She may need TDC IDDM: - on Accu-Cheks 3 times a day before meals. Ileus: - Resolved, continue bowel regimen. Anemia: - Hemoglobin is stable at 8.8, no source of bleeding. Likely from her acute illness. - We will check occult stool blood, iron profile and TSH. b12 and folic acid are WNL. - CBC tomorrow DVT ppx: on heparin gtt - Time Spent with Patient Total time spent is greater than 50% in coordination of care (as documented) at patient's floor/unit and/or counseling patient: Internal Medicine: Result - Labs CBC & Chem 7: 12/18/18 03:00 12/18/18 03:00 Labs: Short CBC 12/18/18 Range/Units 03:00 WBC 7.0 (4.3-11.1) K/mcL Hgb 8.8 L (11.5-15.4) g/dL Hct 29.8 L (35.3-44.9) % Plt Count 186 (140-400) K/mcL Neutrophils # 5.0 (1.6-8.9) K/mcL BMP 12/18/18 03:00 Sodium 139 Potassium 3.5 Chloride 104 Carbon Dioxide 26 BUN 24 H Creatinine 4.86 H Glucose 155 H Calcium 8.6 - ABG Interpretation ABG results: ABG ABG pH 7.39 pH Units (7.32-7.45) 12/11/18 04:50 ABG pCO2 40 mmHg (35-45) 12/11/18 04:50 ABG pO2 91 mmHg (85-104) 12/11/18 04:50 ABG O2 Saturation 97 % (95-98) 12/11/18 04:50 PT/INR, D-dimer PT 13.7 Seconds (9.4-12.1) H 12/03/18 11:55 Consult Discharge Plan - Plan Referrals: Kelly Cardozo, RN [Primary Care Provider] - (1) Diabetes mellitus Qualifiers: Diabetes mellitus type: type 2 Diabetes mellitus retirement insulin use: with retirement use Diabetes mellitus complication status: with skin complications Diabetes mellitus complication detail: with foot ulcer Qualified Code(s): E11 .621 - Type 2 diabetes mellitus with foot ulcer; L97.509 - Non-pressure chronic ulcer of other part of unspecified foot with unspecified severity; 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 (2) Atrial fibrillation Qualifiers: Atrial fibrillation type: chronic Qualified Code(s): I48.2 - Chronic atrial fibrillation (3) UTI (urinary tract infection) Qualifiers: Urinary tract infection type: acute pyelonephritis Qualified Code(s): N10 - Acute pyelonephritis (4) COPD (chronic obstructive pulmonary disease) Qualifiers: COPD type: unspecified COPD Qualified Code(s): J44.9 - Chronic obstructive pulmonary disease, unspecified (8) Acute respiratory failure Qualifiers: Respiratory failure complication: unspecified whether with hypoxia or hypercapnia Qualified Code(s): J96.00 - Acute respiratory failure, unspecified whether with hypoxia or hypercapnia (9) Leukocytosis Qualifiers: Leukocytosis type: unspecified Qualified Code(s): D72.829 - Elevated white blood cell count, unspecified
[2018-12-18] MEDS: Cefepime HCl 1,000 MG in Water for inj. (sterile) 10 ML IVP SCH (16:26)
[2018-12-19] MEDS: Levalbuterol Neb 1.25 MG/3 ML IH SCH ×4 (04:22→21:47)
[2018-12-19 05:03] LABS: Hematocrit 30.1 % (35.3-44.9); Hemoglobin 8.9 g/dL (11.5-15.4); Mean Corpuscular HGB Conc 29.6 g/dL (31.6-35.5); Mean Corpuscular Hemoglobin 28.9 pg (28.0-33.3); Mean Corpuscular Volume 97.7 fL (83.0-100.0); Mean Platelet Volume 12.1 fL (9.4-12.4); Platelet Count 207 K/mcL (140-400); Red Blood Count 3.08 M/mcL (3.82-4.97); Red Cell Distribution Width 21.2 % (11.5-14.5); White Blood Count 6.8 K/mcL (4.3-11.1)
[2018-12-19 05:31] LABS: Calcium 8.4 mg/dL (8.6-10.3); Potassium 3.4 mEq/L (3.5-5.1)
[2018-12-19 05:41] LABS: Thyroid Stimulating Hormone 9.402 mcIU/mL (0.340-5.600)
[2018-12-19] MEDS ORDERED: Potassium Chloride Elixir 20 MEQ/15 ML UDC PO ONE (07:20)
[2018-12-19] MEDS ORDERED: 0.9 % Sodium Chloride 250 ML IVC PRN (07:53)
[2018-12-19] MEDS ORDERED: *HR* Heparin 10,000 UNIT/10 ML VIAL IV PRN (07:53)
[2018-12-19] MEDS ORDERED: 0.9 % Sodium Chloride 1,000 ML PRIME SCH (08:00)
[2018-12-19] MEDS: metroNIDAZOLE 500 MG TABLET PO SCH ×3 (08:35→21:16)
[2018-12-19] MEDS: Sodium Ferric Gluconat/Sucrose 125 MG in 0.9 % Sodium Chloride 100 ML IVPB SCH (08:36)
[2018-12-19] MEDS: Insulin LISPRO 300 UNITS/3 ML VIAL SQ SCH ×4 (08:37→21:13)
[2018-12-19] MEDS ORDERED: NON-FORMULARY MEDICATION 1 EACH EACH (Fluticasone/Vilanterol [Breo Ellipta 100-25 Mcg Inh] IH SCH (09:00)
[2018-12-19] MEDS: Budesonide/Formoterol 160/4.5 1 PUFF INH IH SCH ×2 (11:08→21:47)
--- NOTE | 2018-12-19 11:18 | Nephrology Progress Note ---
Date of Encounter: 12/19/18 Time of Encounter: 09:08 - Assessment and Plan (1) Acute kidney injury superimposed on CKD Current Visit: Yes Status: Acute With worsening SCr, she will need further dialysis today, which I have ordered: I reviewed the patient's labs, vital signs, progress notes, imaging and medication lists, which required complex evaluation and management and medical decision making to compose the patient's dialysis orders. For patients with with RANCHO and requiring dialysis, as always, I recommend following strict I's and O's, daily weights, renal diet, avoidance of nephrotoxic agents, renal dosing. Thank you (2) Sepsis Current Visit: Yes Status: Deleted Qualifiers: Sepsis type: sepsis due to unspecified organism Qualified Code(s): A41.9 - Sepsis, unspecified organism; R65.20 - Severe sepsis without septic shock (3) Acute and chronic respiratory failure with hypoxia Current Visit: Yes Status: Acute (4) Hydronephrosis Current Visit: Yes Status: Acute Qualifiers: Hydronephrosis type: with ureteral calculous obstruction Qualified Code(s): N13.2 - Hydronephrosis with renal and ureteral calculous obstruction Subjective Principal diagnosis: Septic Shock Interval history: The patient was seen and examined on 12/19/2018, and she reported feeling tired, and was wanting to sleep. She did not affirm fevers or chills. Objective - Vital Signs Vital signs: Vital Signs Temp Pulse Resp BP Pulse Ox 12/19/18 07:27 98.2 F 91 22 107/58 95 12/19/18 05:02 97.9 F 78 14 100/55 98 12/18/18 23:22 97.6 F 70 16 92/54 96 12/18/18 21:55 17 97 12/18/18 20:45 97.6 F 66 17 109/61 95 12/18/18 15:58 98.4 F 79 20 116/70 97 12/18/18 15:33 16 95 12/18/18 11:27 97.7 F 76 18 103/60 94 Intake and Output 12/18/18 12/19/18 12/19/18 23:59 07:59 15:59 Intake Total 260 / 355 0 / 30 30 / 30 Output Total 125 / 175 75 / 75 Balance 135 / 180 -75 / -45 30 / -45 Intake: IV Fluids 260 / 355 Heparin 25,000 UNIT/250 ML D5W 250 / 345 25,000 unit In 250 ml @ 14 UNIT /KG/HR 15.904 mls/hr IVC . [id number] [facility] Rx#:[id number] Maxipime 1,000 MG In Water for 10 inj. (sterile) 10 ML @ 300 mls/ hr IVP Q24H [facility] Rx#:[id number] Oral 0 / 0 0 / 30 30 / 30 Output: Catheter 125 / 175 75 / 75 Urethral (Lama) 75 / 75 Other: Weight 113.1 kg Blood Glucose* 145 132 - General Appearance General appearance: Present: well-developed, well-nourished, appears started age, obese EENT: Present: ATNC, PERRL, mucous membranes moist Neck: Present: no JVD, supple Respiratory: Present: no kyphosis, clear (but limited auscultation due to her body habitus) Cardiology: Present: edema (puffy bilateral ankles but this could also represent adiposity), regular rate, regular rhythm, normal S1, normal S2 Dialysis Vascular Access: Venous Catheter (temporary HD catheter in the RIJ) Gastrointestinal: Present: normoactive bowel sounds, no tenderness, no guarding, obese Integumentary: Present: warm and dry, ecchymotic Additional Comments: facial hair Neurologic: Present: no focal deficit, no asterixis, alert and oriented x3 Musculoskeletal: Present: no deformities, no erythema, no cyanosis Psychiatric: Present: mood/affect appropriate, cooperative - Lab 12/23/18 04:59 12/23/18 04:59 Most recent lab results 12/19/18 04:25 Calcium 8.4 L Consult Discharge Plan - Plan Referrals: Kelly Cardozo, RF[employer] SPECIALIST [Primary Care Provider] -
--- NOTE | 2018-12-19 11:31 | Internal Med Progress Note ---
Hospitalist Progress Note - Encounter Date of Encounter: 12/19/18 Time of Encounter: 10:00 - Subjective Interval History: Patient was seen this morning, no events overnight. She looks more alert and oriented today. She denied chest pain, shortness of breath or palpitation. - Exam Vitals: Temp Pulse Resp BP Pulse Ox 98.2 F 91 22 107/58 95 12/19/18 07:27 12/19/18 07:27 12/19/18 07:27 12/19/18 07:27 12/19/18 07:27 Exam: `General: Patient is alert and oriented 3. Head: Atraumatic, normal inspection, normocephalic. Eye: EOMI, PERRLA, no scleral icterus noted. ENT: Mucous membranes moist. No odontogenic infection noted. Neck: Right Udal Respiratory: Clear to auscultation. Cardiovascular: Regular rate and irregular rhythm, No murmurs, rubs, or gallops. GI: Soft, nondistended, normal bowel sounds. 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 Neurological: Alert, oriented 3 Psychiatric: normal affect, normal mood. Skin: Dry, intact, warm. Normal color. No rashes. - Assessment and Plan (1) Diabetes mellitus Current Visit: Yes Status: Chronic (2) Atrial fibrillation Current Visit: Yes Status: Chronic (3) UTI (urinary tract infection) Current Visit: Yes Status: Resolved (4) COPD (chronic obstructive pulmonary disease) Current Visit: Yes Status: Chronic (5) Acute kidney injury superimposed on CKD Current Visit: Yes Status: Acute (6) Severe sepsis Current Visit: Yes Status: Resolved (7) E coli bacteremia Current Visit: Yes Status: Resolved (8) Acute respiratory failure Current Visit: Yes Status: Acute (9) Leukocytosis Current Visit: Yes Status: Resolved (10) Ileus Current Visit: Yes Status: Resolved - Summary of Assessment and Plan Summary of Assessment and Plan: 63-year-old female with a medical history significant for diabetes, A. fib, venous thromboembolism, COPD, coronary artery disease who originally presented on 12/01/2018 with septic shock due to obstructive uropathy. She was initially managed in the intensive care unit for acute hypoxic respiratory failure required mechanical ventilation. Her course was complicated by acute kidney failure due to hypotension and possible ATN requiring intermittent hemodialysis. Risks of her symptoms were managed as following: Aspiration pneumonia: - Currently on 2 L of nasal cannula. On cefepime and Flagyl as per ID. - Speech consult placed, MBS done. Patient is started on nectar thickened diet. Atrial fibrillation: - was Cardizem drip and oral amiodarone in ICU. Used to be on Xarelto and lopressor at home. Amiodarone and Drip are DC'd and patient was started on lopressor 50 mg BID - TTE with EF 55%, mild MR. not a candidate for NOAC given her kidney dysfunction, will be started on Coumadin before discharge as per cardiology. Continue heparin drip at this point. Acute hypoxic respiratory failure: - 2/2 underlying COPD/aspiration PNA and sepsis. She was extubated on 12/12. - Start her on incentive spirometry, continue Symbicort. Septic shock: - 2/2 Escherichia coli bacteremia and UTI and obstructive uropathy.. Finished 14 days of cefepime. Follow-up blood cultures were negative, ID is following. - On Midodrine started in the ICU. Obstructive uropathy: - Urology service is on board, stent was placed on 12/01. Urology service suggested stone extraction as outpatient. RANCHO: - likely from ATN, required intermittent HD. She is still producing urine but oliguric. - Check BMP tomorrow. Nephrology is on board. For HD today.. She may need TDC IDDM: - on Accu-Cheks 3 times a day before meals. Ileus: - Resolved, continue bowel regimen. Anemia: - Hemoglobin is stable at 8.8, no source of bleeding. Likely from her acute illness. - We will check occult stool blood, iron profile and TSH. b12 and folic acid are WNL. - CBC tomorrow DVT ppx: on heparin gtt - Time Spent with Patient Total time spent is greater than 50% in coordination of care (as documented) at patient's floor/unit and/or counseling patient: Plan of Care Discussed with: patient Internal Medicine: Result - Labs CBC & Chem 7: 12/19/18 04:25 12/19/18 04:25 Labs: Short CBC 12/19/18 Range/Units 04:25 WBC 6.8 (4.3-11.1) K/mcL Hgb 8.9 L (11.5-15.4) g/dL Hct 30.1 L (35.3-44.9) % Plt Count 207 (140-400) K/mcL BMP 12/19/18 04:25 Sodium 139 Potassium 3.4 L Chloride 103 Carbon Dioxide 24 BUN 28 H Creatinine 5.22 H Glucose 127 H Calcium 8.4 L - ABG Interpretation ABG results: ABG ABG pH 7.39 pH Units (7.32-7.45) 12/11/18 04:50 ABG pCO2 40 mmHg (35-45) 12/11/18 04:50 ABG pO2 91 mmHg (85-104) 12/11/18 04:50 ABG O2 Saturation 97 % (95-98) 12/11/18 04:50 PT/INR, D-dimer PT 13.7 Seconds (9.4-12.1) H 12/03/18 11:55 Consult Discharge Plan - Plan Referrals: Kelly Cardozo, RN [Primary Care Provider] - (1) Diabetes mellitus Qualifiers: Diabetes mellitus type: type 2 Diabetes mellitus half-way insulin use: with half-way use Diabetes mellitus complication status: with skin complications Diabetes mellitus complication detail: with foot ulcer Qualified Code(s): E11.621 - Type 2 diabetes mellitus with foot ulcer; L97.509 - Non-pressure appraiser auditor thais ulcer of other part of unspecified foot with unspecified severity; Z79.4 - [facility] (current) use of insulin (2) Atrial fibrillation Qualifiers: Atrial fibrillation type: chronic Qualified Code(s): I48.2 - Chronic atrial fibrillation (3) UTI (urinary tract infection) Qualifiers: Urinary tract infection type: acute pyelonephritis Qualified Code(s): N10 - Acute pyelonephritis (4) COPD (chronic obstructive pulmonary disease) Qualifiers: COPD type: unspecified COPD Qualified Code(s): J44.9 - Chronic obstructive pulmonary disease, unspecified (8) Acute respiratory failure Qualifiers: Respiratory failure complication: unspecified whether with hypoxia or hypercapnia Qualified Code(s): J96.00 - Acute respiratory failure, unspecified whether with hypoxia or hypercapnia (9) Leukocytosis Qualifiers: Leukocytosis type: unspecified Qualified Code(s): D72.829 - Elevated white blood cell count, unspecified
[2018-12-19] MEDS: Cefepime HCl 1,000 MG in Water for inj. (sterile) 10 ML IVP SCH (15:45)
[2018-12-20 04:13] LABS: Basophils # 0.1 K/mcL (0.0-0.2); Eosinophils # 0.2 K/mcL (0.0-0.6); Eosinophils % 2.7 %; Hematocrit 33.1 % (35.3-44.9); Immature Granulocytes % 4.7 % (0-4); Lymphocytes # 1.5 K/mcL (0.6-4.6); Lymphocytes % 18.5 %; Mean Corpuscular HGB Conc 30.2 g/dL (31.6-35.5); Mean Corpuscular Hemoglobin 28.7 pg (28.0-33.3); Mean Corpuscular Volume 95.1 fL (83.0-100.0); Mean Platelet Volume 11.8 fL (9.4-12.4); Monocytes # 0.7 K/mcL (0.0-1.3); Monocytes % 8.2 %; Neutrophils # 5.1 K/mcL (1.6-8.9); Platelet Count 212 K/mcL (140-400); Red Blood Count 3.48 M/mcL (3.82-4.97); Red Cell Distribution Width 21.3 % (11.5-14.5); Segmented Neutrophils % 64.9 %; White Blood Count 7.9 K/mcL (4.3-11.1)
[2018-12-20] MEDS: Levalbuterol Neb 1.25 MG/3 ML IH SCH ×4 (04:15→21:20)
[2018-12-20 04:24] LABS: Calcium 8.3 mg/dL (8.6-10.3); Potassium 3.7 mEq/L (3.5-5.1)
--- NOTE | 2018-12-20 08:37 | Nephrology Progress Note ---
Date of Encounter: 12/20/18 Time of Encounter: 07:30 - Assessment and Plan (1) Acute kidney injury superimposed on CKD Current Visit: Yes Status: Acute Thus far no signs of renal recovery, and so she appears to have dialysis- dependent RANCHO, and I recommend placing a Permacath and consulting the SW to help with a dialysis chair time. NPO tonight for Permacath in AM. Next tentative HD will be tomorrow after Permacath placement. Thank you (2) Sepsis Current Visit: Yes Status: Deleted Qualifiers: Sepsis type: sepsis due to unspecified organism Qualified Code(s): A41.9 - Sepsis, unspecified organism; R65.20 - Severe sepsis without septic shock (3) Acute and chronic respiratory failure with hypoxia Current Visit: Yes Status: Acute (4) Hydronephrosis Current Visit: Yes Status: Acute Qualifiers: Hydronephrosis type: with ureteral calculous obstruction Qualified Code(s): N13.2 - Hydronephrosis with renal and ureteral calculous obstruction Subjective Principal diagnosis: Septic Shock Interval history: The patient was seen and examined on 12/20/2018, and she did not affirm active nausea, vomiting, or diarrhea. She did not affirm having problems with dialysis yesterday. Objective - Vital Signs Vital signs: Vital Signs Temp Pulse Resp BP Pulse Ox 12/20/18 07:08 97.8 F 95 19 111/54 92 12/20/18 05:43 99.0 F 93 17 145/86 100 12/20/18 04:15 17 93 12/20/18 02:20 99.0 F 88 18 108/57 90 12/19/18 21:48 17 97 12/19/18 19:53 98.2 F 88 17 111/73 98 12/19/18 16:04 98.5 F 92 19 111/65 98 12/19/18 13:16 98.1 F 18 118/62 12/19/18 13:00 102/65 12/19/18 12:45 106/60 12/19/18 12:30 102/60 12/19/18 12:15 114/70 12/19/18 12:00 101/56 12/19/18 11:45 106/53 12/19/18 11:30 107/59 12/19/18 11:15 97/65 12/19/18 11:00 117/66 12/19/18 10:45 99/61 12/19/18 10:30 106/60 12/19/18 10:15 106/49 12/19/18 10:00 110/64 12/19/18 09:45 93/47 12/19/18 09:30 97.9 F 20 103/61 Intake and Output 12/19/18 12/20/18 12/20/18 23:59 07:59 15:59 Intake Total 0 / 780 Balance 0 / -1395 Intake: IV Fluids 0 / 120 Heparin 25,000 UNIT/250 ML D5W 0 / 0 25,000 unit In 250 ml @ 14 UNIT /KG/HR 15.904 mls/hr IVC . [id number] MEGA Rx#:[id number] Other: Stool Size Large Stool Consistency formed Stool Characteristics Normal for Patient Stool Color Brown # Bowel Movement Diapers 1 Blood Glucose* 117 118 - General Appearance Exam: General appearance: Present: well-developed, well-nourished, appears started age, obese EENT: Present: ATNC, PERRL, mucous membranes moist Neck: Present: no JVD, supple Respiratory: Present: no kyphosis, clear (but limited) Cardiology: Present: edema (puffy bilateral ankles but this could also represent adiposity), regular rate, regular rhythm, normal S1, normal S2 Dialysis Vascular Access: Venous Catheter (temporary HD catheter in the NMJ) Gastrointestinal: Present: normoactive bowel sounds, no tenderness, no guarding, obese Integumentary: Present: warm and dry, ecchymotic Additional Comments: facial hair Neurologic: Present: no focal deficit, no asterixis, alert and oriented x3 Musculoskeletal: Present: no deformities, no erythema, no cyanosis Psychiatric: Present: mood/affect appropriate, cooperative - Lab 12/23/18 04:59 12/23/18 04:59 Most recent lab results 12/20/18 03:50 Calcium 8.3 L Consult Discharge Plan - Plan Referrals: Kelly Cardozo CNP [Primary Care Provider] -
[2018-12-20] MEDS: Insulin LISPRO 300 UNITS/3 ML VIAL SQ SCH ×4 (09:41→21:07)
[2018-12-20] MEDS: metroNIDAZOLE 500 MG TABLET PO SCH ×3 (09:41→21:01)
[2018-12-20] MEDS: Sodium Ferric Gluconat/Sucrose 125 MG in 0.9 % Sodium Chloride 100 ML IVPB SCH (09:41)
--- NOTE | 2018-12-20 10:41 | Internal Med Progress Note ---
Hospitalist Progress Note - Encounter Date of Encounter: 12/20/18 Time of Encounter: 10:00 - Subjective Interval History: Patient was seen this morning, no events overnight. She looks more alert and oriented today. She denied chest pain, shortness of breath or palpitation. She has no nausea/vomiting or abdominal pain. - Exam Vitals: Temp Pulse Resp BP Pulse Ox 97.8 F 95 19 111/54 92 12/20/18 07:08 12/20/18 07:08 12/20/18 07:08 12/20/18 07:08 12/20/18 07:08 Exam: `General: Patient is alert and oriented 3. Head: Atraumatic, normal inspection, normocephalic. Eye: EOMI, PERRLA, no scleral icterus noted. ENT: Mucous membranes moist. No odontogenic infection noted. Neck: Right Udal Respiratory: Clear to auscultation. Cardiovascular: Regular rate and irregular rhythm, No murmurs, rubs, or gallops. GI: Soft, nondistended, normal bowel sounds. 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 Neurological: Alert, oriented 3 Psychiatric: normal affect, normal mood. Skin: Dry, intact, warm. Normal color. No rashes. - Assessment and Plan (1) Diabetes mellitus Current Visit: Yes Status: Chronic (2) Atrial fibrillation Current Visit: Yes Status: Chronic (3) UTI (urinary tract infection) Current Visit: Yes Status: Resolved (4) COPD (chronic obstructive pulmonary disease) Current Visit: Yes Status: Chronic (5) Acute kidney injury superimposed on CKD Current Visit: Yes Status: Acute (6) Severe sepsis Current Visit: Yes Status: Resolved (7) E coli bacteremia Current Visit: Yes Status: Resolved (8) Acute respiratory failure Current Visit: Yes Status: Acute (9) Leukocytosis Current Visit: Yes Status: Resolved (10) Ileus Current Visit: Yes Status: Resolved (11) Anemia Current Visit: Yes Status: Acute - Summary of Assessment and Plan Summary of Assessment and Plan: 63-year-old female with a medical history significant for diabetes, A. fib, venous thromboembolism, COPD, coronary artery disease who originally presented on 12/01/2018 with septic shock due to obstructive uropathy. She was initially managed in the intensive care unit for acute hypoxic respiratory failure required mechanical ventilation. Her course was complicated by acute kidney failure due to hypotension and possible ATN requiring intermittent hemodialysis. Risks of her symptoms were managed as following: Aspiration pneumonia: - Currently on RA. On cefepime and Flagyl as per ID. Speech consult placed, MBS done. Patient is started on nectar thickened diet. Anemia: - Hemoglobin is stable at 10 today, no source of bleeding. Iron profile was low, started on IV Iron. check occult stool blood. b12 and folic acid are WNL. - CBC tomorrow Atrial fibrillation: - Used to be on Xarelto and lopressor at home. Patient was started on lopressor 50 mg BID per Cards - TTE with EF 55%, mild MR. not a candidate for NOAC given her kidney dysfunction, will be started on Coumadin before discharge as per cardiology. Continue heparin drip at this point. Acute hypoxic respiratory failure: 2/2 underlying COPD/aspiration PNA and sepsis. She was extubated on 12/12. Start her on incentive spirometry, continue Symbicort. Septic shock: resolved 2/2 Escherichia coli bacteremia and UTI and obstructive uropathy.. Finished 14 days of cefepime. Follow-up blood cultures were negative, ID is following. On Midodrine started in the ICU. Obstructive uropathy: Urology service is on board, stent was placed on 12/01. Urology service suggested stone extraction as outpatient. RANCHO: likely from ATN, required intermittent HD. She is still producing urine but oliguric. Check BMP tomorrow. Nephrology is on board. She may need TDC IDDM: on Accu-Cheks 3 times a day before meals. Ileus: Resolved, continue bowel regimen. Anemia: - Hemoglobin is stable at 8.8, no source of bleeding. Likely from her acute illness. - We will check occult stool blood, iron profile and TSH. b12 and folic acid are WNL. - CBC tomorrow DVT ppx: on heparin gtt - Time Spent with Patient Total time spent is greater than 50% in coordination of care (as documented) at patient's floor/unit and/or counseling patient: Plan of Care Discussed with: patient Internal Medicine: Result - Labs CBC & Chem 7: 12/20/18 03:50 12/20/18 03:50 Labs: Short CBC 12/20/18 Range/Units 03:50 WBC 7.9 (4.3-11.1) K/mcL Hgb 10.0 L (11.5-15.4) g/dL Hct 33.1 L (35.3-44.9) % Plt Count 212 (140-400) K/mcL Neutrophils # 5.1 (1.6-8.9) K/mcL BMP 12/20/18 03:50 Sodium 137 Potassium 3.7 Chloride 98 Carbon Dioxide 31 H BUN 16 Creatinine 3.41 H Glucose 136 H Calcium 8.3 L - ABG Interpretation ABG results: ABG ABG pH 7.39 pH Units (7.32-7.45) 12/11/18 04:50 ABG pCO2 40 mmHg (35-45) 12/11/18 04:50 ABG pO2 91 mmHg (85-104) 12/11/18 04:50 ABG O2 Saturation 97 % (95-98) 12/11/18 04:50 PT/INR, D-dimer PT 13.7 Seconds (9.4-12.1) H 12/03/18 11:55 Consult Discharge Plan - Plan Referrals: Kelly Cardozo, RN [Primary Care Provider] - (1) Diabetes mellitus Qualifiers: Diabetes mellitus type: type 2 Diabetes mellitus terminal operations manager insulin use: with terminal operations manager use Diabetes mellitus complication status: with skin complications Diabetes mellitus complication detail: with foot ulcer Qualified Code(s): E11.621 - Type 2 diabetes mellitus with foot ulcer; L97.509 - Non-pressure chronic ulcer of other part of unspecified foot with unspecified severity; Z79.4 - [facility] (current) use of insulin (2) Atrial fibrillation Qualifiers: Atrial fibrillation type: chronic Qualified Code(s): I48.2 - Chronic atrial fibrillation (3) UTI (urinary tract infection) Qualifiers: Urinary tract infection type: acute pyelonephritis Qualified Code(s): N10 - Acute pyelonephritis (4) COPD (chronic obstructive pulmonary disease) Qualifiers: COPD type: unspecified COPD Qualified Code(s): J44.9 - Chronic obstructive pulmonary disease, unspecified (8) Acute respiratory failure Qualifiers: Respiratory failure complication: unspecified whether with hypoxia or hypercapnia Qualified Code(s): J96.00 - Acute respiratory failure, unspecified whether with hypoxia or hypercapnia (9) Leukocytosis Qualifiers: Leukocytosis type: unspecified Qualified Code(s): D72.829 - Elevated white blood cell count, unspecified (11) Anemia Qualifiers: Anemia type: iron deficiency
[2018-12-20] MEDS: Budesonide/Formoterol 160/4.5 1 PUFF INH IH SCH ×2 (11:41→21:20)
[2018-12-20] MEDS: Cefepime HCl 1,000 MG in Water for inj. (sterile) 10 ML IVP SCH (15:52)
[2018-12-20] MEDS: Heparin 25,000 UNIT/250 ML D5W 25,000 UNIT/250 ML IV.SOLN IVC SCH (15:52)
[2018-12-20] MEDS: Docusate Oral Soln 100 MG/10 ML UDC PO SCH (20:57)
[2018-12-21 03:54] LABS: Basophils # 0.1 K/mcL (0.0-0.2); Basophils % 1.1 %; Eosinophils # 0.2 K/mcL (0.0-0.6); Eosinophils % 2.7 %; Hemoglobin 9.7 g/dL (11.5-15.4); Immature Granulocytes % 4.9 % (0-4); Lymphocytes # 1.4 K/mcL (0.6-4.6); Mean Corpuscular HGB Conc 30.3 g/dL (31.6-35.5); Mean Corpuscular Hemoglobin 28.6 pg (28.0-33.3); Mean Corpuscular Volume 94.4 fL (83.0-100.0); Monocytes # 0.7 K/mcL (0.0-1.3); Monocytes % 9.6 %; Neutrophils # 4.4 K/mcL (1.6-8.9); Platelet Count 220 K/mcL (140-400); Red Blood Count 3.39 M/mcL (3.82-4.97); Red Cell Distribution Width 21.4 % (11.5-14.5); Segmented Neutrophils % 61.7 %; White Blood Count 7.2 K/mcL (4.3-11.1)
[2018-12-21] MEDS: Levalbuterol Neb 1.25 MG/3 ML IH SCH ×4 (04:04→22:02)
[2018-12-21 04:09] LABS: Calcium 8.2 mg/dL (8.6-10.3); Potassium 3.5 mEq/L (3.5-5.1)
[2018-12-21] MEDS ORDERED: 0.9 % Sodium Chloride 250 ML IVC PRN (06:48)
[2018-12-21] MEDS: Insulin LISPRO 300 UNITS/3 ML VIAL SQ SCH ×4 (07:50→21:16)
[2018-12-21] MEDS: metroNIDAZOLE 500 MG TABLET PO SCH ×3 (09:10→21:42)
[2018-12-21] MEDS: Sodium Ferric Gluconat/Sucrose 125 MG in 0.9 % Sodium Chloride 100 ML IVPB SCH (09:11)
[2018-12-21] MEDS: Budesonide/Formoterol 160/4.5 1 PUFF INH IH SCH ×2 (09:20→22:02)
[2018-12-21] MEDS: traMADol 50 MG TABLET PO PRN (09:21)
[2018-12-21] MEDS: Docusate Oral Soln 100 MG/10 ML UDC PO SCH ×2 (09:25→21:42)
--- NOTE | 2018-12-21 09:42 | Infectious Disease Progress No ---
ID Progress Note Date of Encounter: 12/21/18 Time of Encounter: 09:39 - Subjective Subjective: Patient seen and examined with nursing at the bedside. No acute events noted overnight. Patient extubated 12/12/18. NPO for perma-cath placement later today. Lying in bed. States she doesn't feel very well today. Denies pain, shortness of breath, or cough. Denies nausea, vomiting, or abdominal pain. Lama catheter with small amount yellow urine. Per nursing, patient had loose stool overnight. States her appetite is good and she is hungry, but is NPO. - Objective CBC & Chem 7: 12/21/18 03:28 12/21/18 03:28 - Line Documentation Line Documentation: Dialysis Catheter (right IJ ), Lama Catheter - Exam Vitals: Temp Pulse Resp BP Pulse Ox 98.4 F 88 18 107/50 96 12/21/18 07:09 12/21/18 07:09 12/21/18 09:21 12/21/18 07:09 12/21/18 09:21 Exam: Head: Atraumatic, normal inspection, normocephalic. Eye: EOMI, PERRLA, no scleral icterus noted. ENT: Mucous membranes moist. No odontogenic infection noted. Poor dentition noted. Neck: Normal inspection, no meningismus. Temporary dialysis catheter noted to t he right neck with transparent dressing clean, dry, and intact. Respiratory: Clear to auscultation. No rales, respiratory distress, rhonchi, or wheezes noted. Cardiovascular: Irregular rhythm, regular rate, S1 and S2 audible. No murmurs, rubs, or gallops. GI: Soft, obese, normal bowel sounds. Nontender. Lama catheter draining yellow urine. Extremities: Previous TMA site well healed without erythema. 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 Neurological: Alert, oriented to person, no focal deficits. Answers most questions appropriately. Psychiatric: normal affect, normal mood. Skin: Dry, intact, warm. Normal color. No rashes. - Assessment and Plan (1) Severe sepsis Current Visit: Yes Status: Resolved The patient had 4 sepsis criteria on admission. Likely secondary to pyelonephritis, UTI, and bacteremia. Required vasopressors at one point to maintain adequate perfusion. Improved. White blood cell count normal. Tachycardia resolved. Afebrile. Tachypnea resolved. Blood cultures drawn 12/01/18 were +2 out of 2 sets for Escherichia coli. Repeat blood cultures from 12/02/18 are negative 2 sets. Repeat blood cultures drawn 12/11/18 from the patient's central line are negative 2 sets. Additional repeat blood cultures drawn 12/12/18 from a peripheral stick are negative 2 sets. SNOMED Code(s): 58732670 (2) Leukocytosis Current Visit: Yes Status: Resolved Improved initially shortly after admission, but redeveloped --> likely secondary to aspiration. Repeat blood cultures are no growth to date both from the patient's central line and peripherally. Procalcitonin elevated, but the patient has an acute kidney injury. CT of the chest, abdomen, and pelvis ordered, but not done over the weekend. Will hold off for now since the patient's WBC has normalized. Clinically, the patient appears improved. Resolved. Qualifiers: Leukocytosis type: unspecified Qualified Code(s): D72.829 - Elevated white blood cell count, unspecified SNOMED Code(s): 925934665, 142894541 (3) E coli bacteremia Current Visit: Yes Status: Resolved Causative organism: Escherichia coli. Source: UTI/pyelonephritis. Blood cultures drawn 12/01/18 were +2 out of 2 sets for Escherichia coli. Repeat blood cultures from 12/02/18 are negative 2 sets. Repeat blood cultures drawn 12/11/18 from the patient's central line are negative 2 sets. Additional repeat blood cultures drawn 12/12/18 from a peripheral stick are negative 2 sets. Currently on IV Cefepime. SNOMED Code(s): 882141699944 (4) UTI (urinary tract infection) Current Visit: Yes Status: Acute Causative organism: Escherichia coli. Status post cystoscopy, left retrograde pyelogram, and left ureteral stent placement 12/01/18. Urology consulted and following. Currently on IV Cefepime. Qualifiers: Urinary tract infection type: acute cystitis Hematuria presence: with hematuria Qualified Code(s): N30.01 - Acute cystitis with hematuria SNOMED Code(s): 07024430 (5) Ileus Current Visit: Yes Status: Resolved Resolved. Bowel regimen initiated per primary team. SNOMED Code(s): 243777844 (6) Acute respiratory failure Current Visit: Yes Status: Acute Intubated 12/01/18 for surgery. Etiology likely pulmonary edema vs unknown . Extubated 12/12/18. Management per the pulmonology team. Qualifiers: Respiratory failure complication: unspecified whether with hypoxia or hypercapnia Qualified Code(s): J96.00 - Acute respiratory failure, unspecified whether with hypoxia or hypercapnia SNOMED Code(s): 42548813 (7) Acute kidney injury superimposed on CKD Current Visit: Yes Status: Acute RANCHO likely multifactorial: Sepsis plus nephrotoxic medications plus other. Nephrology consult. CRRT initiated, but discontinued over the weekend. Transitioned to intermittent hemodialysis 12/14/18. Management per the nephrology team. Dose-adjust medications and avoid nephrotoxins as able. SNOMED Code(s): 14076425 (8) COPD (chronic obstructive pulmonary disease) Current Visit: Yes Status: Chronic Qualifiers: COPD type: unspecified COPD Qualified Code(s): J44.9 - Chronic obstructive pulmonary disease, unspecified SNOMED Code(s): 75939692 (9) Diabetes mellitus Current Visit: Yes Status: Chronic Recommend aggressive glucose monitoring and control. Management per the primary team. Qualifiers: Diabetes mellitus type: type 2 Diabetes mellitus exterminator helper termite insulin use: wi th exterminator helper termite use Diabetes mellitus complication status: with skin complic ations Diabetes mellitus complication detail: with foot ulcer Qualified Code(s): E11.621 - Type 2 diabetes mellitus with foot ulcer; L97.509 - Non- pressure chronic ulcer of other part of unspecified foot with unspecified severity; Z79.4 - parts counterman (current) use of insulin SNOMED Code(s): 58687062 (10) Atrial fibrillation Current Visit: Yes Status: Chronic Qualifiers: Atrial fibrillation type: chronic Qualified Code(s): I48.2 - Chronic atrial fibrillation SNOMED Code(s): 94772458 (11) Aspiration into lower respiratory tract Current Visit: Yes Status: Suspected Patient had multiple episodes of emesis over the weekend with subsequent leukocytosis. High index of suspicion for aspiration. PRACTICE ARCHITECT consulted. Status post MBS that revealed aspiration with thin liquids. NTL and mech altered textures recommended. Currently on IV Cefepime and flagyl. Qualifiers: Encounter type: initial encounter Qualified Code(s): T17.800A - Unspecified foreign body in other parts of respiratory tract causing asphyxiation, initial encounter SNOMED Code(s): 902524272 - Recommendations Recommendations: RANCHO management per the nephrology team. Continue Cefepime 1 gram Q24H. Will ask pharmacy to assist with dosing. Continue Flagyl 500 mg IV 3 times a day given the patient's recent vomiting episodes and concern for aspiration. We are unable to use Zosyn since she has a penicillin allergy. Monitor renal function and dose adjust antibiotics. Duration of treatment depends on the clinical picture, but likely a total of 4 weeks post-op. Can likely transition to PO when ready for discharge. Consult Discharge Plan - Plan Referrals: Kelly Cardozo, LUIS MIGUEL [Primary Care Provider] -
[2018-12-21] MEDS: Heparin 25,000 UNIT/250 ML D5W 25,000 UNIT/250 ML IV.SOLN IVC SCH (10:14)
--- NOTE | 2018-12-21 11:20 | Nephrology Progress Note ---
Date of Encounter: 12/21/18 Time of Encounter: 09:00 - Assessment and Plan (1) Acute kidney injury superimposed on CKD Current Visit: Yes Status: Acute No Signs of renal recovery at this time SCr: 3.81, up from 3.41 yesterday BUN: WNL Electrolytes: stable UOP: improved somewhat today, 750mL today NPO today for Permacath placement Next HD could be today if permacath placed early enough Most likely will have to resume HD tomorrow with D/C on a , , Fri, outpatient dialysis schedule Social work on board, helping to coordinate chair time outpatient Will continue to monitor closely for S/S of renal recovery Continue to employ a renal protective strategy with renal dosing, avoidance of nephrotoxins and close monitoring of I/O (2) Acute respiratory failure Current Visit: Yes Status: Acute Respiratory status continues to improve Plan per primary team Qualifiers: Respiratory failure complication: unspecified whether with hypoxia or hypercapnia Qualified Code(s): J96.00 - Acute respiratory failure, unspecified whether with hypoxia or hypercapnia (3) Oliguria Current Visit: Yes Status: Acute 750mL output today Will continue to monitor Rest of plan as above Subjective Principal diagnosis: Septic Shock Interval history: Patient seen and examined at bedside. No acute events overnight. Patient continues to improve clinically. No new or worsening complaints at this time. P atient did have loose bowel movement overnight. Patient does have an appetite and would like to eat. Urine output improved somewhat, -750mL thus far today. Biochemically though her renal function is worse. Patient NPO for Permacath placement today in anticipation of O/P dialysis. Objective - Vital Signs Vital signs: Vital Signs Temp Pulse Resp BP Pulse Ox 12/21/18 11:08 98.1 F 81 17 119/64 93 12/21/18 09:21 18 96 12/21/18 07:09 98.4 F 88 18 107/50 95 12/21/18 04:32 97.6 F 93 17 116/56 94 12/21/18 04:05 18 96 12/20/18 23:37 98.1 F 75 16 116/63 93 12/20/18 21:20 18 95 12/20/18 18:56 97.7 F 79 16 133/79 94 12/20/18 16:32 98.2 F 90 16 124/75 93 12/20/18 15:49 16 97 12/20/18 11:43 18 95 Intake and Output 12/20/18 12/21/18 12/21/18 23:59 07:59 15:59 Intake Total 0 / 450 362 / 362 Output Total 750 / 750 Balance 0 / 450 -750 / -388 362 / -388 Intake: IV Fluids 0 / 360 362 / 362 Heparin 25,000 UNIT/250 ML D5W 0 / 250 252 / 252 25,000 unit In 250 ml @ 14 UNIT /KG/HR 15.904 mls/hr IVC . [id number] [facility] Rx#:[id number] Ferrlecit 125 MG In 0.9 % 110 / 110 Sodium Chloride 100 ML @ 110 mls/hr IVPB DAILY [facility] Rx#: [id number] Output: Catheter 750 / 750 Other: Stool Size Large Moderate Stool Consistency soft formed Stool Characteristics Normal for Patient Stool Color Brown # Bowel Movement Diapers 1 1 Weight 114.3 kg Blood Glucose* 125 117 Patient Weight 12/21/18 23:59 Weight 114.3 kg - General Appearance Exam: Gen: A&Ox3, NAD. Vitals noted, BP improved. Head: atraumatic normocephalic Eyes: anicteric sclera, EOMI ENT: Mucous Membranes dry, poor dentition Neck: Temp. dialysis catheter left IJ, dressing c/d/i CV: RRR, no murmurs gallops rubs Resp: course breath sounds bilaterally, poor inspiratory effort, no wheezes or rhonchi noted Abd: soft, nontender, nondistended Ext: No peripheral edema, rashes, bruises - Lab 12/21/18 03:28 12/21/18 03:28 Most recent lab results 12/21/18 03:28 Calcium 8.2 L Consult Discharge Plan - Plan Referrals: Kelly Cardozo RN [Primary Care Provider] -
--- NOTE | 2018-12-21 11:27 | Internal Med Progress Note ---
Hospitalist Progress Note - Encounter Date of Encounter: 12/21/18 Time of Encounter: 11:24 - Subjective Interval History: The patient was seen and examined at the bedside Patient denies shortness of breath or chest pain Precipitating in PTOT No acute event overnight Continued to improve clinically Patient nothing by mouth for permanent catheter placement today - Exam Vitals: Temp Pulse Resp BP Pulse Ox 98.1 F 81 17 119/64 93 12/21/18 11:08 12/21/18 11:08 12/21/18 11:08 12/21/18 11:08 12/21/18 11:08 Exam: Physical examination: Gen.: Patient is alert and awake, , not in respiratory distress or pain HEENT: perrla , EOMI, no thyroid gland enlargement, no neck mass, supple neck Heart: S1 and S2 quita, normal sinus rhythm, no cardiac murmur no gallop rhythm Chest: Air entry equal bilaterally, decreased breathing bilaterally, no wheezing, crackles or crepitation Abdomen: Soft nontender nondistended positive bowel sounds, Extremities: No pitting edema, peripheral pulses palpable, no cyanosis tenderness, 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 fib, venous thromboembolism, COPD, coronary artery disease who originally presented on 12/01/2018 with septic shock due to obstructive uropathy. She was initially managed in the intensive care unit for acute hypoxic respiratory failure required mechanical ventilation. Her course was complicated by acute kidney failure due to hypotension and possible ATN requiring intermittent hemodialysis. Risks of her symptoms were managed as following: Aspiration pneumonia: - Currently on RA. On cefepime and Flagyl as per ID. Speech consult placed, MBS done. Patient is started on nectar thickened diet. currently NPO for permanent cath placement Anemia: - Hemoglobin is stable at 9.7 today, no source of bleeding. Iron profile was low, started on IV Iron. check occult stool blood. b12 and folic acid are WNL. - CBC daily Atrial fibrillation: - Used to be on Xarelto and lopressor at home. Patient was started on lopressor 50 mg BID per Cards - TTE with EF 55%, mild MR. not a candidate for NOAC given her kidney dys function, will be started on Coumadin before discharge as per cardiology. Continue heparin drip at this point. Acute hypoxic respiratory failure: 2/2 underlying COPD/aspiration PNA and sepsis. She was extubated on 12/12. Start her on incentive spirometry, continue Symbicort. saturating well on RA today Septic shock: resolved 2/2 Escherichia coli bacteremia and UTI and obstructive uropathy.. Finished 14 days of cefepime. Follow-up blood cultures were negative, ID is following. On Midodrine started in the ICU. Obstructive uropathy: Urology service is on board, stent was placed on 12/01. Urology service suggested stone extraction as outpatient. RANCHO: likely from ATN, required intermittent HD. She is still producing urine but oliguric. Check CMP dialy Nephrology is on board. plan for permanent dialysis catheter placement today IDDM: on Accu-Cheks 3 times a day before meals. Ileus: Resolved, continue bowel regimen. DVT ppx: on heparin gtt - Time Spent with Patient Total time spent is greater than 50% in coordination of care (as documented) at patient's floor/unit and/or counseling patient: Internal Medicine: Result - Labs CBC & Chem 7: 12/21/18 03:28 12/21/18 03:28 Labs: Short CBC 12/21/18 Range/Units 03:28 WBC 7.2 (4.3-11.1) K/mcL Hgb 9.7 L (11.5-15.4) g/dL Hct 32.0 L (35.3-44.9) % Plt Count 220 (140-400) K/mcL Neutrophils # 4.4 (1.6-8.9) K/mcL BMP 12/21/18 03:28 Sodium 138 Potassium 3.5 Chloride 101 Carbon Dioxide 26 BUN 18 Creatinine 3.81 H Glucose 113 H Calcium 8.2 L - ABG Interpretation ABG results: ABG ABG pH 7.39 pH Units (7.32-7.45) 12/11/18 04:50 ABG pCO2 40 mmHg (35-45) 12/11/18 04:50 ABG pO2 91 mmHg (85-104) 12/11/18 04:50 ABG O2 Saturation 97 % (95-98) 12/11/18 04:50 PT/INR, D-dimer PT 13.7 Seconds (9.4-12.1) H 07/25/19 11:55 Consult Discharge Plan - Plan Referrals: Kelly Cardozo RN [Primary Care Provider] -
[2018-12-21] MEDS ORDERED: *HR* Heparin 10,000 UNIT/10 ML VIAL IV PRN ×2 (12:21→12:23)
[2018-12-21] MEDS: Acetaminophen 325 MG TABLET PO PRN (12:36)
[2018-12-21] MEDS ORDERED: *HR* Midazolam HCl 2 MG/2 ML VIAL IVP ONE (14:44)
[2018-12-21] MEDS ORDERED: *HR* FentaNYL (PF) 100 MCG/2 ML VIAL IVP PRN (14:44)
[2018-12-21] MEDS ORDERED: Clindamycin 600 MG/50 ML 600 MG/50 ML IV.SOLN IVPB STA (14:45)
[2018-12-21] MEDS ORDERED: Heparin 1,000 UNITS/500 mL 500 ML ONE (15:35)
[2018-12-21] MEDS ORDERED: *HR* FentaNYL (PF) 100 MCG/2 ML VIAL IVP ONE (15:42)
[2018-12-21] MEDS ORDERED: 0.9 % Sodium Chloride 500 ML ONE (15:56)
[2018-12-21] MEDS ORDERED: *HR* FentaNYL (PF) 100 MCG/2 ML VIAL ONE (15:58)
--- NOTE | 2018-12-21 16:14 | IR Procedure Note ---
Date of procedure: 12/21/18 Consent Obtained: Verbal consent, Written consent Timeout: Correct patient and procedure verified, Correct site verified, Time out performed, Skin prep completed Local anesthetic: Lidocaine 1% Was there an trade sales assistant present: No Estimated blood loss (cc): 2 Complications: None; Tolerated procedure well Indications: Chronic renal failure Procedure Performed: Tunneled HD catheter placed in VIR Site/Technique: Tunneled right IJ HD catheter placed in VIR Results/Findings (any specimens removed): Catheter in good position Post Procedure Treatment Plan: OK to use the HD catheter Specimen: None
[2018-12-21] MEDS: Cefepime HCl 1,000 MG in Water for inj. (sterile) 10 ML IVP SCH (21:42)
[2018-12-22] MEDS: Levalbuterol Neb 1.25 MG/3 ML IH SCH ×4 (04:13→21:31)
[2018-12-22 05:35] LABS: Basophils # 0.1 K/mcL (0.0-0.2); Basophils % 0.7 %; Eosinophils # 0.2 K/mcL (0.0-0.6); Eosinophils % 2.9 %; Hematocrit 30.8 % (35.3-44.9); Hemoglobin 9.1 g/dL (11.5-15.4); Immature Granulocytes % 3.7 % (0-4); Lymphocytes # 1.3 K/mcL (0.6-4.6); Lymphocytes % 19.2 %; Mean Corpuscular HGB Conc 29.5 g/dL (31.6-35.5); Mean Corpuscular Hemoglobin 28.7 pg (28.0-33.3); Mean Corpuscular Volume 97.2 fL (83.0-100.0); Mean Platelet Volume 11.5 fL (9.4-12.4); Monocytes # 0.7 K/mcL (0.0-1.3); Monocytes % 9.7 %; Neutrophils # 4.4 K/mcL (1.6-8.9); Platelet Count 201 K/mcL (140-400); Red Blood Count 3.17 M/mcL (3.82-4.97); Red Cell Distribution Width 21.3 % (11.5-14.5); Segmented Neutrophils % 63.8 %; White Blood Count 6.8 K/mcL (4.3-11.1)
[2018-12-22 05:44] LABS: Calcium 8.1 mg/dL (8.6-10.3); Potassium 3.5 mEq/L (3.5-5.1)
[2018-12-22 05:46] LABS: Albumin 2.5 g/dL (3.5-5.7); Albumin/Globulin Ratio 0.8 (1.1-2.2); Bilirubin,Total 0.6 mg/dL (0.3-1.0); Calcium 8.3 mg/dL (8.6-10.3); Globulin 3.1 g/dL (2.4-3.5); Magnesium 1.8 mg/dL (1.6-2.6); Phosphorous 2.6 mg/dL (2.7-4.5); Potassium 3.5 mEq/L (3.5-5.1); Total Protein 5.6 g/dL (6.4-8.9)
[2018-12-22] MEDS: traMADol 50 MG TABLET PO PRN ×2 (05:53→21:10)
[2018-12-22] MEDS: Insulin LISPRO 300 UNITS/3 ML VIAL SQ SCH ×4 (07:18→21:14)
[2018-12-22] MEDS: metroNIDAZOLE 500 MG TABLET PO SCH (09:02)
[2018-12-22] MEDS: Docusate Oral Soln 100 MG/10 ML UDC PO SCH ×2 (09:03→21:11)
--- NOTE | 2018-12-22 09:29 | Infectious Disease Progress No ---
ID Progress Note Date of Encounter: 12/22/18 Time of Encounter: 09:00 - Subjective Subjective: Patient seen and examined with nursing at the bedside. No acute events noted overnight. Patient extubated 12/12/18. Status post Perma-cath placement 12/21/18. Lying in bed. States she feels better today. Denies pain, shortness of breath, or cough. Denies nausea, vomiting, or abdominal pain. Lama catheter with small amount brown urine. Denies diarrhea. States her appetite is good and she wants to eat breakfast. - Objective CBC & Chem 7: 12/23/18 04:59 12/23/18 04:59 - Line Documentation Line Documentation: Dialysis Catheter (Right chest perma-cath), Lama Catheter - Exam Vitals: Temp Pulse Resp BP Pulse Ox 97.9 F 94 19 106/69 98 12/22/18 07:18 12/22/18 07:18 12/22/18 07:18 12/22/18 07:18 12/22/18 07:18 Exam: Head: Atraumatic, normal inspection, normocephalic. Eye: EOMI, PERRLA, no scleral icterus noted. ENT: Mucous membranes moist. No odontogenic infection noted. Poor dentition noted. Neck: Normal inspection, no meningismus. Respiratory: Clear to auscultation. No rales, respiratory distress, rhonchi, or wheezes noted. Cardiovascular: Irregular rhythm, regular rate, S1 and S2 audible. No murmurs, rubs, or gallops. GI: Soft, obese, normal bowel sounds. Nontender. Lama catheter draining brown urine. Extremities: Previous TMA site well healed without erythema. 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 Neurological: Alert, oriented to person, no focal deficits. Answers most questions appropriately. Psychiatric: normal affect, normal mood. Skin: Dry, intact, warm. Normal color. No rashes. - Assessment and Plan (1) Severe sepsis Current Visit: Yes Status: Resolved The patient had 4 sepsis criteria on admission. Likely secondary to pyelonephritis, UTI, and bacteremia. Required vasopressors at one point to maintain adequate perfusion. Improved. White blood cell count normal. Tachycardia resolved. Afebrile. Tachypnea resolved. Blood cultures drawn 12/01/18 were +2 out of 2 sets for Escherichia coli. Repeat blood cultures from 12/02/18 are negative 2 sets. Repeat blood cultures drawn 12/11/18 from the patient's central line are negative 2 sets. Additional repeat blood cultures drawn 12/12/18 from a peripheral stick are negative 2 sets. SNOMED Code(s): 14940379 (2) Leukocytosis Current Visit: Yes Status: Resolved Improved initially shortly after admission, but redeveloped --> likely secondary to aspiration. Repeat blood cultures are no growth to date both from the patient's central line and peripherally. Procalcitonin elevated, but the patient has an acute kidney injury. CT of the chest, abdomen, and pelvis ordered, but not done over the weekend. Will hold off for now since the patient's WBC has normalized. Clinically, the patient appears improved. Resolved. Qualifiers: Leukocytosis type: unspecified Qualified Code(s): D72.829 - Elevated white blood cell count, unspecified SNOMED Code(s): 494601117, 255298370 (3) E coli bacteremia Current Visit: Yes Status: Resolved Causative organism: Escherichia coli. Source: UTI/pyelonephritis. Blood cultures drawn 12/01/18 were +2 out of 2 sets for Escherichia coli. Repeat blood cultures from 12/02/18 are negative 2 sets. Repeat blood cultures drawn 12/11/18 from the patient's central line are negative 2 sets. Additional repeat blood cultures drawn 12/12/18 from a peripheral stick are negative 2 sets. Currently on IV Cefepime. SNOMED Code(s): 123986038201 (4) UTI (urinary tract infection) Current Visit: Yes Status: Acute Causative organism: Escherichia coli. Status post cystoscopy, left retrograde pyelogram, and left ureteral stent placement 12/01/18. Urology consulted and following. Currently on IV Cefepime. Qualifiers: Urinary tract infection type: acute cystitis Hematuria presence: with hematuria Qualified Code(s): N30.01 - Acute cystitis with hematuria SNOMED Code(s): 49995749 (5) Ileus Current Visit: Yes Status: Resolved Resolved. Bowel regimen initiated per primary team. SNOMED Code(s): 229043471 (6) Acute respiratory failure Current Visit: Yes Status: Acute Intubated 12/01/18 for surgery. Etiology likely pulmonary edema vs unknown . Extubated 12/12/18. Qualifiers: Respiratory failure complication: unspecified whether with hypoxia or hypercapnia Qualified Code(s): J96.00 - Acute respiratory failure, unspecified whether with hypoxia or hypercapnia SNOMED Code(s): 51652800 (7) Acute kidney injury superimposed on CKD Current Visit: Yes Status: Acute RANCHO likely multifactorial: Sepsis plus nephrotoxic medications plus other. Nephrology consult. CRRT initiated, but discontinued over the weekend. Transitioned to intermittent hemodialysis 12/14/18. Perma-cath placed 12/21/18. Management per the nephrology team. Dose-adjust medications and avoid nephrotoxins as able. SNOMED Code(s): 94807600 (8) COPD (chronic obstructive pulmonary disease) Current Visit: Yes Status: Chronic Qualifiers: COPD type: unspecified COPD Qualified Code(s): J44.9 - Chronic obstructive pulmonary disease, unspecified SNOMED Code(s): 38047590 (9) Diabetes mellitus Current Visit: Yes Status: Chronic Recommend aggressive glucose monitoring and control. Management per the primary team. Qualifiers: Diabetes mellitus type: type 2 Diabetes mellitus fci insulin use: with fci use Diabetes mellitus complication status: with skin complications Diabetes mellitus complication detail: with foot ulcer Qualified Code(s): E11.621 - Type 2 diabetes mellitus with foot ulcer; L97.509 - Non-pressure chronic ulcer of other part of unspecified foot with unspecified severity; Z79.4 - terminologist (current) use of insulin SNOMED Code(s): 51558697 (10) Atrial fibrillation Current Visit: Yes Status: Chronic Qualifiers: Atrial fibrillation type: chronic Qualified Code(s): I48.2 - Chronic atrial fibrillation SNOMED Code(s): 72801309 (11) Aspiration into lower respiratory tract Current Visit: Yes Status: Suspected Patient had multiple episodes of emesis over the weekend with subsequent leukocytosis. High index of suspicion for aspiration. CUSTOMER RESOURCE SPECIALIST consulted. Status post MBS that revealed aspiration with thin liquids. NTL and mech altered textures recommended. Currently on IV Cefepime and flagyl. Qualifiers: Encounter type: initial encounter Qualified Code(s): T17.800A - Unspecified foreign body in other parts of respiratory tract causing asphyxiation, initial encounter SNOMED Code(s): 613601476 - Recommendations Recommendations: RANCHO management per the nephrology team. Continue Cefepime 1 gram Q24H. Will ask pharmacy to assist with dosing. Discontinue flagyl. Monitor renal function and dose adjust antibiotics. Duration of treatment depends on the clinical picture, but likely a total of 4 weeks post-op. Treat through 12/28/18. Can likely transition to PO Omnicef 300mg PO every other day. Consult Discharge Plan - Plan Referrals: Kelly Cardozo CNP [Primary Care Provider] -
[2018-12-22] MEDS: Budesonide/Formoterol 160/4.5 1 PUFF INH IH SCH ×2 (10:05→21:31)
[2018-12-22] MEDS: Sodium Ferric Gluconat/Sucrose 125 MG in 0.9 % Sodium Chloride 100 ML IVPB SCH (11:05)
--- NOTE | 2018-12-22 11:12 | Internal Med Progress Note ---
Hospitalist Progress Note - Encounter Date of Encounter: 12/22/18 Time of Encounter: 11:09 - Subjective Interval History: The patient was seen and examined at the bedside She had permanent dialysis catheter placed yesterday Denies chest pain or shortness of breath - Exam Vitals: Temp Pulse Resp BP Pulse Ox 97.9 F 94 14 106/69 99 12/22/18 07:18 12/22/18 07:18 12/22/18 10:06 12/22/18 07:18 12/22/18 10:06 Exam: Physical examination: Gen.: Patient is alert and awake, , not in respiratory distress or pain HEENT: perrla , EOMI, no thyroid gland enlargement, no neck mass, supple neck Heart: S1 and S2 quita, normal sinus rhythm, no cardiac murmur no gallop rhythm Chest: Air entry equal bilaterally, decreased breathing bilaterally, no wheezing, crackles or crepitation Abdomen: Soft nontender nondistended positive bowel sounds, Extremities: No pitting edema, peripheral pulses palpable, no cyanosis tenderness, 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 fib, venous thromboembolism, COPD, coronary artery disease who originally presented on 12/01/2018 with septic shock due to obstructive uropathy. She was initially managed in the intensive care unit for acute hypoxic respiratory failure required mechanical ventilation. Her course was complicated by acute kidney failure due to hypotension and possible ATN requiring intermittent hemodialysis. Risks of her symptoms were managed as following: Aspiration pneumonia: - . On cefepime as per ID. Speech consult placed, MBS done. Patient is started on nectar thickened diet. Anemia: - Hemoglobin is stable at 9.7 today, no source of bleeding. Iron profile was low, started on IV Iron. check occult stool blood. b12 and folic acid are WNL. - CBC daily Atrial fibrillation: - Used to be on Xarelto and lopressor at home. Patient was started on lopressor 50 mg BID per Cards - TTE with EF 55%, mild MR. not a candidate for NOAC given her kidney dysfunction, will be started on Coumadin before discharge as per cardiology. Continue heparin drip at this point. Acute hypoxic respiratory failure: 2/2 underlying COPD/aspiration PNA and sepsis. She was extubated on 12/12. Start her on incentive spirometry, continue Symbicort. saturating well on RA today Septic shock: resolved 2/2 Escherichia coli bacteremia and UTI and obstructive uropathy.. Follow-up blood cultures were negative, ID is following. On Midodr ine started in the ICU. Blood cultures drawn 12/01/18 were +2 out of 2 sets for Escherichia coli. Repeat blood cultures from 12/02/18 are negative 2 sets. Repeat blood cultures drawn 12/11/18 from the patient's central line are negative 2 sets. Additional repeat blood cultures drawn 12/12/18 from a peripheral stick are negative 2 sets. Obstructive uropathy: Urology service is on board, stent was placed on 12/01. Urology service suggested stone extraction as outpatient. RANCHO: likely from ATN, required intermittent HD. She is still producing urine but oliguric. Check CMP dialy Nephrology is on board. s/p permanent dialysis catheter placement IDDM: on Accu-Cheks 3 times a day before meals. Ileus: Resolved, continue bowel regimen. DVT ppx: on heparin gtt - Time Spent with Patient Total time spent is greater than 50% in coordination of care (as documented) at patient's floor/unit and/or counseling patient: Internal Medicine: Result - Labs CBC & Chem 7: 12/22/18 05:00 12/22/18 05:00 Labs: Short CBC 12/22/18 Range/Units 05:00 WBC 6.8 (4.3-11.1) K/mcL Hgb 9.1 L (11.5-15.4) g/dL Hct 30.8 L (35.3-44.9) % Plt Count 201 (140-400) K/mcL Neutrophils # 4.4 (1.6-8.9) K/mcL BMP 12/22/18 12/22/18 05:00 05:00 Sodium 140 140 Potassium 3.5 3.5 Chloride 101 102 Carbon Dioxide 29 29 BUN 9 9 Creatinine 2.46 H 2.39 H Glucose 109 H 108 H Calcium 8.1 L 8.3 L Liver Function 12/22/18 Range/Units 05:00 Total Bilirubin 0.6 (0.3-1.0) mg/dL AST 16 (13-39) Units/L ALT 10 (7-52) Units/L Alkaline Phosphatase 74 (34-104) Units/L Albumin 2.5 L (3.5-5.7) g/dL - ABG Interpretation ABG results: ABG ABG pH 7.39 pH Units (7.32-7.45) 12/11/18 04:50 ABG pCO2 40 mmHg (35-45) 12/11/18 04:50 ABG pO2 91 mmHg (85-104) 12/11/18 04:50 ABG O2 Saturation 97 % (95-98) 12/11/18 04:50 PT/INR, D-dimer PT 13.7 Seconds (9.4-12.1) H 12/03/18 11:55 - Impressions Impressions Guidance Ultrasound 12/21/18 00:00 IMPRESSION: Ultrasound and fluoroscopic guided tunneled hemodialysis catheter placement. No immediate complications. The catheter is ready for use. D/ / Best Lantigua MD / Best Lantigua MD Interpreting Provider: Best Lantigua MD Insertion Tunneled Catheter 12/21/18 00:00 IMPRESSION: Ultrasound and fluoroscopic guided tunneled hemodialysis catheter placement. No immediate complications. The catheter is ready for use. D/ / Best Lantigua MD / Best Lantigua MD Interpreting Provider: Best Lantigua MD Consult Discharge Plan - Plan Referrals: Kelly Cardozo CNP [Primary Care Provider] -
[2018-12-22] MEDS: Heparin 25,000 UNIT/250 ML D5W 25,000 UNIT/250 ML IV.SOLN IVC SCH ×2 (14:06→21:15)
--- NOTE | 2018-12-22 15:27 | Nephrology Progress Note ---
Date of Encounter: 12/22/18 Time of Encounter: 09:00 - Assessment and Plan (1) Acute kidney injury superimposed on CKD Current Visit: Yes Status: Acute No Signs of renal recovery at this time SCr: 3.41-->3.81-->2.39 TODAY BUN: WNL Electrolytes: stable UOP: improved somewhat, 1L yesterday, none recorded today Permacath placed successfully yesterday Patient would like to go home but needs ECF Social work on board, helping to coordinate chair time outpatient Will continue to monitor closely for S/S of renal recovery Continue to employ a renal protective strategy with renal dosing, avoidance of nephrotoxins and close monitoring of I/O (2) Acute respiratory failure Current Visit: Yes Status: Acute Resolved Continue management per primary team Qualifiers: Respiratory failure complication: unspecified whether with hypoxia or hypercapnia Qualified Code(s): J96.00 - Acute respiratory failure, unspecified whether with hypoxia or hypercapnia (3) Oliguria Current Visit: Yes Status: Acute Somewhat improved 1 L urine output yesterday None recorded as of yet today We will continue to monitor closely Subjective Principal diagnosis: Septic Shock Interval history: Patient seen and examined at bedside. Patient received permacath yesterday without complications, underwent one round HD. Patient has no new or worsening complaints at this time but does state that she does not feel well. Cannot verbalize in what way. Denies shortness of breath/chest pain, fevers/chills, abdominal pain. Nursing reports No acute events overnight. Patient did have roughly 1 L urine output yesterday, creatinine down to 2.39 post dialysis, which was stable. Objective - Vital Signs Vital signs: Vital Signs Temp Pulse Resp BP Pulse Ox 12/22/18 11:06 97.9 F 84 17 102/67 95 12/22/18 10:06 14 99 12/22/18 07:18 97.9 F 94 19 106/69 98 12/22/18 04:16 14 96 12/22/18 04:06 98 F 79 17 118/72 95 12/22/18 00:03 98.7 F 91 16 104/61 93 12/21/18 22:07 14 98 12/21/18 20:35 98.5 F 90 16 112/75 99 12/21/18 20:34 98.1 F 18 122/58 12/21/18 20:15 108/52 12/21/18 20:00 111/56 12/21/18 19:45 109/52 12/21/18 19:30 103/49 12/21/18 19:15 109/57 12/21/18 19:00 107/63 12/21/18 18:45 110/45 12/21/18 18:30 133/58 12/21/18 18:15 102/64 12/21/18 18:00 125/62 12/21/18 17:45 139/77 12/21/18 17:30 127/75 12/21/18 17:15 136/60 12/21/18 17:00 156/69 12/21/18 16:45 97.8 F 16 129/69 12/21/18 16:05 82 11 137/83 85 12/21/18 15:56 75 23 139/81 91 Intake and Output 12/21/18 12/22/18 12/22/18 23:59 07:59 15:59 Intake Total 723 / 1085 81 / 145 64 / 145 Output Total 2350 / 3100 Balance -162 / -2014 81 / 145 64 / 145 Intake: IV Fluids 123 / 485 81 / 145 64 / 145 Heparin 25,000 UNIT/250 ML D5W 103 / 355 81 / 145 64 / 145 25,000 unit In 250 ml @ 14 UNIT /KG/HR 15.904 mls/hr IVC . [id number] [facility] Rx#:[id number] Maxipime 1,000 MG In Water for 20 / 20 inj. (sterile) 10 ML @ 300 mls/ hr IVP Q24H [facility] Rx#:[id number] Oral 0 / 0 0 / 0 Intake, Rinseback and Flushes 600 / 600 Output: Urine 0 / 0 Total Dialysis (HD) Output 2100 / 2100 Catheter 250 / 1000 Other: Stool Size Large Stool Consistency loose liquid soft # Bowel Movement Diapers 1 Weight 114 kg Blood Glucose* 100 100 131 Hemodialysis Net Fluid Removed 1500 (mL) Patient Weight 12/22/18 23:59 Weight 114 kg - General Appearance Exam: Gen: A&Ox3, NAD. Vitals noted, BP improved. Head: atraumatic normocephalic Eyes: anicteric sclera, EOMI ENT: Mucous Membranes dry, poor dentition Neck: Temp. dialysis catheter left IJ, dressing c/d/i CV: RRR, no murmurs gallops rubs Resp: course breath sounds bilaterally, poor inspiratory effort, no wheezes or rhonchi noted Abd: soft, nontender, nondistended Ext: No peripheral edema, rashes, bruises - Lab 12/22/18 05:00 12/22/18 05:00 Most recent lab results 12/22/18 12/22/18 05:00 05:00 Calcium 8.1 L 8.3 L Phosphorus 2.6 L Magnesium 1.8 Consult Discharge Plan - Plan Referrals: Kelly Cardozo, [employer] [Primary Care Provider] -
--- NOTE | 2018-12-22 18:45 | Event Note ---
Date of Encounter: 12/22/18 Time of Encounter: 18:45 noted BP is soft decrease dose of metoprolol to 25 mg bid with holding parameter check orthostatic BP monitor BP and HR
[2018-12-22] MEDS: Cefepime HCl 1,000 MG in Water for inj. (sterile) 10 ML IVP SCH (21:13)
[2018-12-23] MEDS: Acetaminophen 325 MG TABLET PO PRN (00:54)
[2018-12-23] MEDS: Levalbuterol Neb 1.25 MG/3 ML IH SCH ×4 (03:55→21:29)
[2018-12-23 05:13] LABS: Basophils # 0.1 K/mcL (0.0-0.2); Basophils % 0.9 %; Eosinophils # 0.3 K/mcL (0.0-0.6); Eosinophils % 4.1 %; Hematocrit 31.2 % (35.3-44.9); Hemoglobin 9.3 g/dL (11.5-15.4); Immature Granulocytes % 2.8 % (0-4); Lymphocytes # 1.4 K/mcL (0.6-4.6); Lymphocytes % 20.5 %; Mean Corpuscular HGB Conc 29.8 g/dL (31.6-35.5); Mean Corpuscular Hemoglobin 29.2 pg (28.0-33.3); Mean Corpuscular Volume 97.8 fL (83.0-100.0); Mean Platelet Volume 11.9 fL (9.4-12.4); Monocytes # 0.8 K/mcL (0.0-1.3); Monocytes % 10.7 %; Neutrophils # 4.3 K/mcL (1.6-8.9); Nucleated Red Blood Cells 0.3 /100 WBC (0); Platelet Count 214 K/mcL (140-400); Red Blood Count 3.19 M/mcL (3.82-4.97); Red Cell Distribution Width 21.5 % (11.5-14.5)
[2018-12-23 05:32] LABS: Albumin 2.6 g/dL (3.5-5.7); Albumin/Globulin Ratio 0.8 (1.1-2.2); Bilirubin,Total 0.7 mg/dL (0.3-1.0); Calcium 8.4 mg/dL (8.6-10.3); Globulin 3.3 g/dL (2.4-3.5); Magnesium 1.7 mg/dL (1.6-2.6); Phosphorous 3.2 mg/dL (2.7-4.5); Potassium 3.4 mEq/L (3.5-5.1); Total Protein 5.9 g/dL (6.4-8.9)
[2018-12-23] MEDS ORDERED: 0.9 % Sodium Chloride 250 ML IVC PRN (06:52)
[2018-12-23] MEDS: Insulin LISPRO 300 UNITS/3 ML VIAL SQ SCH ×4 (08:09→22:07)
[2018-12-23] MEDS: Docusate Oral Soln 100 MG/10 ML UDC PO SCH ×2 (08:21→22:07)
--- NOTE | 2018-12-23 09:29 | Nephrology Progress Note ---
Date of Encounter: 12/23/18 Time of Encounter: 09:00 - Assessment and Plan (1) Acute kidney injury superimposed on CKD Current Visit: Yes Status: Acute Patient does not have obvious s/s of renal recovery at this time UOP: 1L 12/21, only 100mLs 12/22 Electrolytes: mild hypokalemia SCr: 2.39-->3.10 today, however this is improvement compared to previous int erdialytic periods GFR: 15 today BUN: has been stable Patient is not clinically fluid overload at this time Was on 60mg Lasix BID prior to admission, may plan to restart on low dose at discharge pending continued improvement Continue to monitor I/O strictly and avoid nephrotoxins, assess daily weights and renally dose all medications (2) Acute respiratory failure Current Visit: Yes Status: Acute Per primary team Resolved Qualifiers: Respiratory failure complication: unspecified whether with hypoxia or hypercapnia Qualified Code(s): J96.00 - Acute respiratory failure, unspecified whether with hypoxia or hypercapnia (3) Oliguria Current Visit: Yes Status: Acute Continue to monitor Remains oliguric though improving Plan as above Subjective Principal diagnosis: Septic Shock Interval history: Patient seen and examined at bedside. Reports no new or worsening complaints. Nursing notes states low blood pressure overnight, metoprolol dose was reduced. Patient denies chest pain/shortness of breath, fever/chills, abdominal p ain/nausea/vomiting. Creatinine did increase this morning however not as significantly as in previous intradialytic periods. Tentative plan for chair time at [facility], will follow up with social work. Patient did have an elevated TSH, free T4 ordered yesterday was normal Objective - Vital Signs Vital signs: Vital Signs Temp Pulse Resp BP Pulse Ox 12/23/18 07:20 97.8 F 76 15 128/76 95 12/23/18 03:55 18 92 12/23/18 03:34 98.6 F 87 16 98/55 96 12/22/18 23:38 97.7 F 80 20 104/52 96 12/22/18 21:32 18 97 12/22/18 19:03 97.8 F 84 20 111/62 98 12/22/18 16:10 98.0 F 87 16 92/59 93 12/22/18 15:36 18 98 12/22/18 11:06 97.9 F 84 17 102/67 95 12/22/18 10:06 14 99 Intake and Output 12/22/18 12/23/18 12/23/18 23:59 07:59 15:59 Intake Total 320 / 320 0 / 320 Output Total 100 / 100 Balance -100 / 45 320 / 320 0 / 320 Intake: IV Fluids 200 / 200 Heparin 25,000 UNIT/250 ML D5W 200 / 200 25,000 unit In 250 ml @ 14 UNIT /KG/HR 15.904 mls/hr IVC . [id number] MEGA Rx#:[id number] Oral 120 / 120 0 / 120 Output: Catheter 100 / 100 Other: Meal Breakfast Percent of Meal Consumed 0% Weight 109.9 kg Blood Glucose* 122 105 - General Appearance Exam: Gen: A&Ox3, NAD. Vitals noted. Head: atraumatic normocephalic Eyes: anicteric sclera, EOMI ENT: Mucous Membranes dry, poor dentition Neck: trachea midline, temp dialysis catheter removed, dressing c/d/i CV: RRR, no murmurs gallops rubs Resp: course breath sounds bilaterally, poor inspiratory effort, no wheezes or rhonchi noted Abd: soft, nontender, distended, obese Ext: No peripheral edema, venous stasis dermatitis of LLE noted, right BKA - Lab 12/23/18 04:59 12/23/18 04:59 Most recent lab results 12/23/18 04:59 Calcium 8.4 L Phosphorus 3.2 Magnesium 1.7 Consult Discharge Plan - Plan Referrals: Kelly Cardozo, FREIGHT FLAGMAN [Primary Care Provider] -
[2018-12-23] MEDS ORDERED: *HR* Heparin 10,000 UNIT/10 ML VIAL IV PRN (09:51)
[2018-12-23] MEDS: Budesonide/Formoterol 160/4.5 1 PUFF INH IH SCH ×2 (10:49→21:29)
--- NOTE | 2018-12-23 12:13 | Internal Med Progress Note ---
Hospitalist Progress Note - Encounter Date of Encounter: 12/23/18 Time of Encounter: 12:11 - Subjective Interval History: Pt was seen and examined at bed side today. Patient was seen after dialysis. Patient reports that she is feeling fine. Patient has expressed concerns about not getting dialysis today at the dialysis center. However, patient ended up getting dialysis - Exam Vitals: Temp Pulse Resp BP Pulse Ox 98.9 F 76 20 115/72 95 12/23/18 09:45 12/23/18 07:20 12/23/18 09:45 12/23/18 11:45 12/23/18 07:20 Exam: Physical examination: Gen.: Patient is alert and awake, , not in respiratory distress or pain HEENT: perrla , EOMI, no thyroid gland enlargement, no neck mass, supple neck Heart: S1 and S2 quita, normal sinus rhythm, no cardiac murmur no gallop rhythm Chest: Air entry equal bilaterally, decreased breathing bilaterally, no wheezing, crackles or crepitation Abdomen: Soft nontender nondistended positive bowel sounds, Extremities: No pitting edema, peripheral pulses palpable, no cyanosis tenderness, 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 Continue cefepime. ID is on consult. (2) Acute kidney injury superimposed on CKD Current Visit: Yes Status: Acute Assessment and Plan: Patient is on dialysis nephrology is following the case. We will continue to monitor urine output. (3) Atrial fibrillation Current Visit: Yes Status: Chronic Assessment and Plan: Rate is controlled., Currently on metoprolol 25 twice a day.. Patient is currently on heparin drip. Will start bridging to Coumadin. (4) Diabetes mellitus Current Visit: Yes Status: Chronic Assessment and Plan: Continue insulin. (5) COPD (chronic obstructive pulmonary disease) Current Visit: Yes Status: Chronic Assessment and Plan: Continue breathing treatment. (6) E coli bacteremia Current Visit: Yes Status: Resolved Assessment and Plan: Patient is on cefepime. (7) Acute respiratory failure Current Visit: Yes Status: Resolved Assessment and Plan: Patient's hospital course was complicated by acute hypoxic respiratory failure requiring mechanical into this in. Patient was on ventilation and was admitted to ICU and subsequently transferred to the floor for continuation of care. (8) Anemia Current Visit: Yes Status: Acute Assessment and Plan: Continue to monitor. Hemoglobin 9.3 today. - Time Spent with Patient Total time spent is greater than 50% in coordination of care (as documented) at patient's floor/unit and/or counseling patient: 25 - 35 minutes Plan of Care Discussed with: nurse Internal Medicine: Result - Labs CBC & Chem 7: 12/23/18 04:59 12/23/18 04:59 Labs: Short CBC 12/23/18 Range/Units 04:59 WBC 7.0 (4.3-11.1) K/mcL Hgb 9.3 L (11.5-15.4) g/dL Hct 31.2 L (35.3-44.9) % Plt Count 214 (140-400) K/mcL Neutrophils # 4.3 (1.6-8.9) K/mcL BMP 12/23/18 04:59 Sodium 138 Potassium 3.4 L Chloride 105 Carbon Dioxide 28 BUN 13 Creatinine 3.10 H Glucose 119 H Calcium 8.4 L Liver Function 12/23/18 Range/Units 04:59 Total Bilirubin 0.7 (0.3-1.0) mg/dL AST 16 (13-39) Units/L ALT 10 (7-52) Units/L Alkaline Phosphatase 77 (34-104) Units/L Albumin 2.6 L (3.5-5.7) g/dL - ABG Interpretation ABG results: ABG ABG pH 7.39 pH Units (7.32-7.45) 12/11/18 04:50 ABG pCO2 40 mmHg (35-45) 12/11/18 04:50 ABG pO2 91 mmHg (85-104) 12/11/18 04:50 ABG O2 Saturation 97 % (95-98) 12/11/18 04:50 PT/INR, D-dimer PT 13.7 Seconds (9.4-12.1) H 12/03/18 11:55 Consult Discharge Plan - Plan Referrals: Kelly Cardozo, CHRISTY [Primary Care Provider] - (3) Atrial fibrillation Qualifiers: Atrial fibrillation type: chronic Qualified Code(s): I48.2 - Chronic atrial fibrillation (4) Diabetes mellitus Qualifiers: Diabetes mellitus type: type 2 Diabetes mellitus [facility] insulin use: with exterminator helper use Diabetes mellitus complication status: with skin complications Diabetes mellitus complication detail: with foot ulcer Qualified Code(s): E11.621 - Type 2 diabetes mellitus with foot ulcer; L97.509 - Non-pressure chronic ulcer of other part of unspecified foot with unspecified severity; Z79.4 - [facility] (current) use of insulin (5) COPD (chronic obstructive pulmonary disease) Qualifiers: COPD type: unspecified COPD Qualified Code(s): J44.9 - Chronic obstructive pulmonary disease, unspecified (7) Acute respiratory failure Qualifiers: Respiratory failure complication: unspecified whether with hypoxia or hypercap ken[place] Qualified Code(s): J96.00 - Acute respiratory failure, unspecified whether with hypoxia or hypercapnia (8) Anemia Qualifiers: Anemia type: iron deficiency Iron deficiency anemia type: unspecified iron deficiency Qualified Code(s): D50.9 - Iron deficiency anemia, unspecified
[2018-12-23] MEDS: Nystatin POWDER 30 GM BOTTLE TP SCH ×3 (14:14→22:09)
[2018-12-23] MEDS: Heparin 25,000 UNIT/250 ML D5W 25,000 UNIT/250 ML IV.SOLN IVC SCH ×2 (14:21→22:07)
[2018-12-23] MEDS: traMADol 50 MG TABLET PO PRN ×2 (14:22→22:09)
[2018-12-23] MEDS: Sodium Ferric Gluconat/Sucrose 125 MG in 0.9 % Sodium Chloride 100 ML IVPB SCH (15:12)
[2018-12-23] MEDS ORDERED: *HR* Warfarin 5 MG TABLET PO ONE (18:00)
[2018-12-23] MEDS ORDERED: Warfarin perPT PO PRN (18:00)
[2018-12-23] MEDS: Cefepime HCl 1,000 MG in Water for inj. (sterile) 10 ML IVP SCH (22:08)
[2018-12-24] MEDS: Levalbuterol Neb 1.25 MG/3 ML IH SCH ×4 (03:34→22:00)
[2018-12-24 03:45] LABS: Basophils # 0.1 K/mcL (0.0-0.2); Basophils % 0.8 %; Eosinophils # 0.3 K/mcL (0.0-0.6); Eosinophils % 3.5 %; Hematocrit 31.5 % (35.3-44.9); Hemoglobin 9.4 g/dL (11.5-15.4); Immature Granulocytes % 2.7 % (0-4); Lymphocytes # 1.4 K/mcL (0.6-4.6); Lymphocytes % 18.5 %; Mean Corpuscular HGB Conc 29.8 g/dL (31.6-35.5); Mean Corpuscular Hemoglobin 29.4 pg (28.0-33.3); Mean Corpuscular Volume 98.4 fL (83.0-100.0); Mean Platelet Volume 11.8 fL (9.4-12.4); Monocytes # 0.8 K/mcL (0.0-1.3); Platelet Count 204 K/mcL (140-400); Red Cell Distribution Width 21.2 % (11.5-14.5); Segmented Neutrophils % 64.5 %; White Blood Count 7.7 K/mcL (4.3-11.1)
[2018-12-24 03:54] LABS: INR 1.5
[2018-12-24 04:06] LABS: Calcium 8.3 mg/dL (8.6-10.3); Potassium 3.3 mEq/L (3.5-5.1)
[2018-12-24] MEDS: Heparin 25,000 UNIT/250 ML D5W 25,000 UNIT/250 ML IV.SOLN IVC SCH ×2 (05:31→12:22)
[2018-12-24] MEDS: Insulin LISPRO 300 UNITS/3 ML VIAL SQ SCH ×4 (09:00→20:43)
[2018-12-24] MEDS: Docusate Oral Soln 100 MG/10 ML UDC PO SCH ×2 (09:05→20:43)
[2018-12-24] MEDS: traMADol 50 MG TABLET PO PRN (09:05)
[2018-12-24] MEDS: Nystatin POWDER 30 GM BOTTLE TP SCH ×3 (09:06→20:43)
[2018-12-24] MEDS: Budesonide/Formoterol 160/4.5 1 PUFF INH IH SCH ×2 (10:39→22:00)
--- NOTE | 2018-12-24 11:40 | Internal Med Progress Note ---
Hospitalist Progress Note - Encounter Date of Encounter: 12/24/18 Time of Encounter: 11:37 - Subjective Interval History: She was seen and examined at bedside today. Patient reports that she is feeling fine. Patient was placed on temporary dialysis after sepsis and septic shock due to acute kidney injury. Patient received dialysis yesterday. Patient is currently on IV antibiotic and Is to Switch Her to Oral Antibiotics Today per ID Recommendation. Upon getting discharge to rehabilitation facility with temporary dialysis. - Exam Vitals: Temp Pulse Resp BP Pulse Ox 98.1 F 89 18 117/80 94 12/24/18 11:07 12/24/18 11:07 12/24/18 11:07 12/24/18 11:12/24/18 11:07 Exam: Physical examination: Gen.: Patient is alert and awake, , not in respiratory distress or pain HEENT: perrla , EOMI, no thyroid gland enlargement, no neck mass, supple neck Heart: S1 and S2 quita, normal sinus rhythm, no cardiac murmur no gallop rhythm Chest: Air entry equal bilaterally, decreased breathing bilaterally, no wheezing, crackles or crepitation Abdomen: Soft nontender nondistended positive bowel sounds, Extremities: No pitting edema, peripheral pulses palpable, no cyanosis tenderness, 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 Patient finished antibiotic course and subsequently developed aspiration pneumonia. He is currently on IV cefepime. Sepsis has resolved we will switch patient to oral antibiotic per ID recommendation. We will plan on discharging her to a rehabilitation facility with temporary dialysis center.. (2) Acute kidney injury superimposed on CKD Current Visit: Yes Status: Acute Assessment and Plan: Patient is on dialysis nephrology is following the case. We will continue to monitor urine output. (3) Atrial fibrillation Current Visit: Yes Status: Chronic Assessment and Plan: Rate is controlled., Currently on metoprolol 25 twice a day. Patient is currently on heparin drip. Will start bridging to Coumadin. INR this morning is normal and drainage will continue giving her Coumadin to bridge. (4) Diabetes mellitus Current Visit: Yes Status: Chronic Assessment and Plan: Continue insulin. (5) COPD (chronic obstructive pulmonary disease) Current Visit: Yes Status: Chronic Assessment and Plan: Continue breathing treatment. (6) Anemia Current Visit: Yes Status: Acute Assessment and Plan: Continue to monitor. Hemoglobin 9.4 today. - Time Spent with Patient Total time spent is greater than 50% in coordination of care (as documented) at patient's floor/unit and/or counseling patient: 25 - 35 minutes Plan of Care Discussed with: patient Internal Medicine: Result - Labs CBC & Chem 7: 12/24/18 03:30 12/24/18 03:30 Labs: Short CBC 12/24/18 Range/Units 03:30 WBC 7.7 (4.3-11.1) K/mcL Hgb 9.4 L (11.5-15.4) g/dL Hct 31.5 L (35.3-44.9) % Plt Count 204 (140-400) K/mcL Neutrophils # 5.0 (1.6-8.9) K/mcL BMP 12/24/18 03:30 Sodium 138 Potassium 3.3 L Chloride 100 Carbon Dioxide 30 H BUN 7 L Creatinine 2.24 H Glucose 120 H Calcium 8.3 L - ABG Interpretation ABG results: ABG ABG pH 7.39 pH Units (7.32-7.45) 12/11/18 04:50 ABG pCO2 40 mmHg (35-45) 12/11/18 04:50 ABG pO2 91 mmHg (85-104) 12/11/18 04:50 ABG O2 Saturation 97 % (95-98) 12/11/18 04:50 PT/INR, D-dimer PT 17.0 Seconds (9.4-12.1) H 12/24/18 03:30 Consult Discharge Plan - Plan Referrals: Kelly Cardozo CNP [Primary Care Provider] - (3) Atrial fibrillation Qualifiers: Atrial fibrillation type: chronic Qualified Code(s): I48.2 - Chronic atrial fibrillation (4) Diabetes mellitus Qualifiers: Diabetes mellitus type: type 2 Diabetes mellitus exterminator helper termite insulin use: with correction use Diabetes mellitus complication status: with skin complications Diabetes mellitus complication detail: with foot ulcer Qualified Code(s): E11.621 - Type 2 diabetes mellitus with foot ulcer; L97.509 - Non-pressure chronic ulcer of other part of unspecified foot with unspecified severity; Z79.4 - [facility] (current) use of insulin (5) COPD (chronic obstructive pulmonary disease) Qualifiers: COPD type: unspecified COPD Qualified Code(s): J44.9 - Chronic obstructive pulmonary disease, unspecified (6) Anemia Qualifiers: Anemia type: iron deficiency Iron deficiency anemia type: unspecified iron deficiency Qualified Code(s): D50.9 - Iron deficiency anemia, unspecified
[2018-12-24] MEDS: *HR* Heparin 5,000 UNIT/ML VIAL IVP PRN (13:39)
--- NOTE | 2018-12-24 13:54 | Nephrology Progress Note ---
Date of Encounter: 12/24/18 Time of Encounter: 09:00 - Assessment and Plan (1) Acute kidney injury superimposed on CKD Current Visit: Yes Status: Acute No obvious renal recovery as of yet Urine output fluctuating, 350 mL yesterday Creatinine clearance not it improved, 2.24 today in the interdialytic period Potassium low, 3.3 Patient not significantly fluid overloaded at this time PermCath in place, functioning properly Chair time set up for outpatient dialysis in [place] Plan: -Strict I/O, avoid nephrotoxins, renally dose medications -No indication for CLINICAL SPECIALIST today, we will continue to assess -PTH/vitamin D ordered, will follow up -May restart patient on Lasix but will need potassium replacement (2) Oliguria Current Visit: Yes Status: Acute Urine output fluctuating, somewhat improved Has had 1.4 L urine output in last 72 hours We will continue to monitor with strict I/O (3) Anemia Current Visit: Yes Status: Acute Vision is a normocytic anemia, MCV 98.4 B12/folate both significantly elevated Iron panel consistent with iron deficiency Patient has received IV Ferrlecit Hemoglobin minimally improved today, 9.4 We will continue to monitor, may add EPO Qualifiers: Anemia type: iron deficiency Iron deficiency anemia type: unspecified iron deficiency Qualified Code(s): D50.9 - Iron deficiency anemia, unspecified Subjective Principal diagnosis: RANCHO Interval history: Patient seen and examined at bedside. Patient complained of vague pain all over this morning. Cannot location of any of her pain. She does not have abdominal pain on examination. When I move extremities and assess her different muscles she denies pain. Patient is significantly confused this morning. She is oriented to person only. On reassessment 1 hour later the patient is resting calmly in bed, denies any pain at that time. Patient reports a good appetite. Denies fevers/chills, chest pain/shortness of breath. Plan for discharge to an ECF with outpatient dialysis set up in [place]. Objective - Vital Signs Vital signs: Vital Signs Temp Pulse Resp BP Pulse Ox 12/24/18 11:07 98.1 F 89 18 117/80 94 12/24/18 10:39 20 91 12/24/18 07:27 98.5 F 99 16 116/62 94 12/24/18 04:12 98.3 F 97 16 113/69 92 12/24/18 03:34 18 90 12/23/18 23:44 98.1 F 93 16 106/67 93 12/23/18 21:30 17 90 12/23/18 19:17 98.0 F 102 18 106/67 92 12/23/18 16:29 18 93 12/23/18 16:20 98.2 F 104 18 110/52 93 Intake and Output 12/23/18 12/24/18 12/24/18 23:59 07:59 15:59 Intake Total 170 / 1140 200 / 261.3 61.3 / 261.3 Output Total 350 / 2450 Balance -180 / -1310 200 / 261.3 61.3 / 261.3 Intake: IV Fluids 110 / 360 200 / 261.3 61.3 / 261.3 Heparin 25,000 UNIT/250 ML D5W 200 / 261.3 61.3 / 261.3 25,000 unit In 250 ml @ 14 UNIT /KG/HR 15.904 mls/hr IVC . [id number] MEGA Rx#:[id number] Ferrlecit 125 MG In 0.9 % 110 / 110 Sodium Chloride 100 ML @ 110 mls/hr IVPB DAILY EMGA Rx#: [id number] Oral 60 / 180 0 / 0 Output: Catheter 350 / 350 Other: Meal Breakfast Percent of Meal Consumed 0% Weight 109.9 kg Blood Glucose* 119 110 116 Patient Weight 12/24/18 23:59 Weight 109.9 kg - General Appearance Exam: Gen: A&Ox1, NAD. Vitals noted. Head: atraumatic normocephalic Eyes: anicteric sclera, EOMI ENT: Mucous Membranes dry, poor dentition Neck: trachea midline, temp dialysis catheter removed, dressing c/d/i CV: RRR, no murmurs gallops rubs Resp: course breath sounds bilaterally, poor inspiratory effort, no wheezes or rhonchi noted Abd: soft, nontender, distended, obese Ext: No peripheral edema, venous stasis dermatitis of LLE noted, right BKA - Lab 12/24/18 03:30 12/24/18 03:30 Most recent lab results 12/24/18 03:30 Calcium 8.3 L Consult Discharge Plan - Plan Referrals: Kelly Cardozo CNP [Primary Care Provider] -
[2018-12-24] MEDS ORDERED: Cefdinir 300 MG CAPSULE PO SCH (18:00)
[2018-12-24] MEDS ORDERED: *HR* Warfarin 2.5 MG TABLET PO ONE (18:00)
[2018-12-25] MEDS: Levalbuterol Neb 1.25 MG/3 ML IH SCH ×2 (03:31→11:09)
[2018-12-25 03:34] LABS: Basophils # 0.1 K/mcL (0.0-0.2); Basophils % 1.1 %; Eosinophils # 0.3 K/mcL (0.0-0.6); Hemoglobin 9.5 g/dL (11.5-15.4); Lymphocytes # 1.6 K/mcL (0.6-4.6); Lymphocytes % 23.9 %; Mean Corpuscular HGB Conc 29.7 g/dL (31.6-35.5); Mean Corpuscular Hemoglobin 28.7 pg (28.0-33.3); Mean Corpuscular Volume 96.7 fL (83.0-100.0); Mean Platelet Volume 11.8 fL (9.4-12.4); Monocytes # 0.7 K/mcL (0.0-1.3); Monocytes % 10.8 %; Neutrophils # 3.8 K/mcL (1.6-8.9); Platelet Count 221 K/mcL (140-400); Red Blood Count 3.31 M/mcL (3.82-4.97); Red Cell Distribution Width 21.2 % (11.5-14.5); Segmented Neutrophils % 56.2 %; White Blood Count 6.7 K/mcL (4.3-11.1)
[2018-12-25 03:56] LABS: Calcium 8.4 mg/dL (8.6-10.3); Potassium 3.7 mEq/L (3.5-5.1)
[2018-12-25 03:58] LABS: Heparin anti-factor XA UFH 0.18 IU/mL (0.30-0.70)
[2018-12-25 03:59] LABS: INR 2.2; Prothrombin Time 25.4 Seconds (9.4-12.1)
[2018-12-25] MEDS: *HR* Heparin 5,000 UNIT/ML VIAL IVP PRN (04:31)
[2018-12-25] MEDS ORDERED: 0.9 % Sodium Chloride 250 ML IVC PRN (07:16)
[2018-12-25] MEDS: Insulin LISPRO 300 UNITS/3 ML VIAL SQ SCH ×2 (09:47→12:51)
[2018-12-25] MEDS: Docusate Oral Soln 100 MG/10 ML UDC PO SCH ×2 (09:56→10:05)
[2018-12-25] MEDS: traMADol 50 MG TABLET PO PRN (09:56)
[2018-12-25] MEDS: Nystatin POWDER 30 GM BOTTLE TP SCH (09:57)
[2018-12-25] MEDS ORDERED: *HR* Heparin 10,000 UNIT/10 ML VIAL IV PRN (10:05)
[2018-12-25] MEDS: Budesonide/Formoterol 160/4.5 1 PUFF INH IH SCH (11:09)
--- NOTE | 2018-12-25 12:10 | Discharge Summary ---
- NOTES TO OUTPATIENT PROVIDER Notes to Outpatient Provider: Patient was hospitalized for septic shock due to obstructive uropathy and aspiration pneumonia. Patient was managed in ICU due to acute hypoxic respiratory failure requiring intubation and hypotension requiring pressure drip. Patient's hospital course was complicated by de veloping acute renal failure which required hemodialysis. Patient subsequently improved. And was transferred. Patient's kidney function however does not improve and continued to require dialysis. Initial culture showed Escherichia coli bacteremia. Recent culture drawn on December 11 and December 12 are negative. Patient is getting discharged to rehabilitation center. Follow-up with patient after getting discharged from rehabilitation. Patient was started on Coumadin for her atrial fibrillation since newer Oral anticoagulant are not indicated in the setting of kidney failure. Orders not resulted at time of discharge: Pending orders 12/18/18 04:00 Occult Blood,Stool [BF] AM 0400 Estimated PT Needs at Discharge: SNF/ECF Date of Encounter: 12/25/18 Time of Encounter: 12:07 - Discharge Diagnosis (1) Severe sepsis Priority: Primary Status: Resolved (2) Acute kidney injury superimposed on CKD Priority: Secondary Status: Acute (3) Atrial fibrillation Priority: Secondary Status: Chronic Qualifiers: Atrial fibrillation type: chronic Qualified Code(s): I48.2 - Chronic atrial fibrillation (4) Diabetes mellitus Priority: Secondary Status: Chronic Qualifiers: Diabetes mellitus type: type 2 Diabetes mellitus assisted insulin use: with director long term care use Diabetes mellitus complication status: with skin complications Diabetes mellitus complication detail: with foot ulcer Qualified Code(s): E11.621 - Type 2 diabetes mellitus with foot ulcer; L97.509 - Non-pressure chronic ulcer of other part of unspecified foot with unspecified severity; Z79.4 - FPC (current) use of insulin (5) COPD (chronic obstructive pulmonary disease) Priority: Secondary Status: Chronic Qualifiers: COPD type: unspecified COPD Qualified Code(s): J44.9 - Chronic obstructive pulmonary disease, unspecified (6) Anemia Priority: Secondary Status: Acute Qualifiers: Anemia type: iron deficiency Iron deficiency anemia type: unspecified iron deficiency Qualified Code(s): D50.9 - Iron deficiency anemia, unspecified Hospital course: Ms. Ness is a 63 year old female with PMH of diabetes, A. fib, venous thromboembolism, COPD, coronary artery disease who originally presented on 12/01/2018 with septic shock due to obstructive uropathy. She was hospitalized for septic shock due to obstructive uropathy and aspiration pneumonia. Patient was managed in ICU due to acute hypoxic respiratory failure requiring intubation and hypotension requiring pressure drip. Patient's hospital course was complicated by developing acute renal failure which required hemodialysis. Patient subsequently improved. And was transferred. Patient's kidney function however does not improve and continued to require dialysis. Initial culture showed Escherichia coli bacteremia. Recent culture drawn on December 11 and December 12 are negative. Patient is getting discharged to rehabilitation center. Follow-up with patient after getting discharged from rehabilitation. Patient was started on Coumadin for her atrial fibrillation since newer Oral anticoagulant are not indicated in the setting of kidney failure. Since recent blood culture were negative. Patient has to finish antibiotic course up to 12/28/2018 per Infectious disease. Patient is to continue on warfarin 2.5 mg daily. INR check in next 3 days. Recent discharged to the rehabilitation facility in stable condition. Patient is to continue temporary dialysis at the [facility]. Plan discussed with Nurse, case manag ement, and clinical social worker. Discharge discussed with: patient, nurse, social work, case management, relationship consultant - Time Spent with Patient Total time spent providing and/or coordinating discharge services: 45 Time spent: Greater than 30 minutes - Discharge Medications Prescriptions: New Warfarin perPT [Coumadin perPT] 2.5 mg PO DAILY@1800 14 Days #14 each Cefdinir [Omnicef] 300 mg PO QPM 4 Days #4 capsule Continued Albuterol Sulfate [Ventolin Hfa] 2 puff IH BID Fluticasone Propionate Nasal [Flonase] 1 spray NS DAILY Fluticasone/Salmeterol [Advair 250-50 Diskus] 1 puff IH BID Fluticasone/Vilanterol [Breo Ellipta 100-25 Mcg INH] 1 puff IH DAILY Insulin Glargine,Hum.rec.anlog [Basaglar Ochoaikpen U-100] 36 unit SQ BID Sertraline [Zoloft] 75 mg PO DAILY Vitamin B Complex/Vit C/Vit E [Stresstab] 1 tab PO DAILY Atorvastatin [Lipitor] 10 mg PO HS amLODIPine [Norvasc] 5 mg PO DAILY Duloxetine HCl [Cymbalta] 60 mg PO DAILY Clopidogrel Bisulfate [Plavix] 75 mg PO DAILY Umeclidinium [place] [Incruse Ellipta] 1 puff IH DAILY Metoprolol [Lopressor] 150 mg PO BID Loratadine [Claritin] 10 mg PO DAILY Insulin ASPART [Novolog] 18 - 32 unit SQ TID Spironolactone [Aldactone] 25 mg PO DAILY Multivitamin,Stress Formula [Stress Formula] 1 each PO DAILY Liraglutide [Victoza 2-Zaid] 1.2 mg SQ DAILY Acetaminophen [Tylenol] 1,000 mg PO Q6HR PRN PRN Reason: Pain Cholecalciferol (Vitamin D3) [Vitamin D3] 1,000 unit PO DAILY Discontinued Furosemide [Lasix] 60 mg PO BID Potassium Chloride [Klor-Con 10] 30 meq PO DAILY Gabapentin [Neurontin] 1,200 mg PO TID Rivaroxaban [Xarelto] 15 mg PO 1700 Home Medications: Acetaminophen [Tylenol] 1,000 mg PO Q6HR PRN 11/30/18 [History] Cholecalciferol (Vitamin D3) [Vitamin D3] 1,000 unit PO DAILY 11/30/18 [History] Clopidogrel Bisulfate [Plavix] 75 mg PO DAILY 11/30/18 [History] Duloxetine HCl [Cymbalta] 60 mg PO DAILY 11/30/18 [History] Insulin ASPART [Novolog] 18 - 32 unit SQ TID 11/30/18 [History] Liraglutide [Victoza 2-Zaid] 1.2 mg SQ DAILY 11/30/18 [History] Loratadine [Claritin] 10 mg PO DAILY 11/30/18 [History] Metoprolol [Lopressor] 150 mg PO BID 11/30/18 [History] Multivitamin,Stress Formula [Stress Formula] 1 each PO DAILY 11/30/18 [History] Spironolactone [Aldactone] 25 mg PO DAILY 11/30/18 [History] Umeclidinium [place] [Incruse Ellipta] 1 puff IH DAILY 11/30/18 [History] amLODIPine [Norvasc] 5 mg PO DAILY 11/30/18 [History] Albuterol Sulfate [Ventolin Hfa] 2 puff IH BID 12/02/18 [History] Atorvastatin [Lipitor] 10 mg PO HS 12/02/18 [History] Fluticasone Propionate Nasal [Flonase] 1 spray NS DAILY 12/02/18 [History] Fluticasone/Salmeterol [Advair 250-50 Diskus] 1 puff IH BID 12/02/18 [History] Fluticasone/Vilanterol [Breo Ellipta 100-25 Mcg INH] 1 puff IH DAILY 12/02/18 [History] Insulin Glargine,Hum.rec.anlog [Basaglar Kwikpen U-100] 36 unit SQ BID 12/02/18 [History] Sertraline [Zoloft] 75 mg PO DAILY 12/02/18 [History] Vitamin B Complex/Vit C/Vit E [Stresstab] 1 tab PO DAILY 12/02/18 [History] Cefdinir [Omnicef] 300 mg PO QPM 4 Days #4 capsule 12/25/18 [Rx] Warfarin perPT [Coumadin perPT] 2.5 mg PO DAILY@1800 14 Days #14 each 12/25/18 [Rx] Allergies/Adverse Reactions: Allergy/AdvReac Type Severity Reaction Status Date / Time codeine Allergy See Verified 11/30/18 17:25 Comments latex Allergy See Verified 11/30/18 17:25 Comments Paroxetine [From Paxil] Allergy See Verified 11/30/18 17:25 Comments Penicillins Allergy See Verified 11/30/18 17:25 Comments Date of admission: 12/01/18 17:33 Primary care physician: Kelly Cardozo Consults: 12/01/18 06:10 Consult to Helper Teacher [CONS] Routine Reason for SW Consult: critically ill, unclear POA. Has 2 brothers with no contact info. Dr. Salguero talked to contact (friend) 12/01/18 06:58 Consult to Pulmonology [CONS] Routine Consulting Provider: Pulm Crit [facility] [place] Reason for Consult: urosepsis, afib with RVR, acute respiratory failure Call Completed: Yes 12/01/18 10:46 Consult to Surgery [CONS] Stat Consulting Provider: Surgery [facility] - [facility] Reason for Consult: CVC Placement Call Completed: Yes 12/02/18 07:33 Consult to Nephrology [CONS] Routine Consulting Provider: Kidney Janine/ORIMI/PARBaudilio/BROWN Reason for Consult: worsening creatinine after septic stone, ventilated Call Completed: No 12/03/18 10:24 Consult to Nutrition [CONS] Stat Comment: Consulting Provider: NUTRITION Reason for Dietary Consult: Tube Feed Start & Manage 12/03/18 10:51 Consult to Interventional Radiology [CONS] Routine Consulting Provider: Radiology Interventional Cols Reason for Consult: Please assist in placing a temporary HD catheter Call Completed: Yes 12/10/18 17:00 Consult to Palliative Care [CONS] Routine Comment: Consulting Provider: Palliative Care Janine Reason for Consult: Patient has been intubated and ventilated since 12/01/18. Has urosepsis. Additionally on CRRT. Family meeting planned on 12/11/18 to further discuss goals of care. Call Completed: No 12/11/18 10:11 Consult to Infectious Diseases [CONS] Routine Consulting Provider: Infectious Disease Janine Reason for Consult: To determine if the ureteral stone could be attributing t o ongoing leukocytosis Call Completed: No 12/15/18 08:30 Consult to Dialysis [CONS] ONCE 12/16/18 06:28 Consult to Urology [CONS] Routine Consulting Provider: Urology Janine Reason for Consult: Lama not draining, leaking Time Notified: 06:29 Call Completed: Yes 12/16/18 15:21 Consult to Nurse Navigator [CONS] Routine Comment: copd, poss new hd 12/16/18 15:42 Consult to Occupational Therapy [CONS] Routine Comment: Evaluate, develop and implement POC Reason for Consult: DETERMINE D/C PLANS; PATIENT WAS POSSIBLY AMBULATORY PRIOT TO ADMISSION; RIGHT BKA WITH PROSTHETIC; Does patient have active BEDREST order?: No Is patient medically & hemodynamically stable?: Yes Consult to Physical Therapy [CONS] Routine Comment: Evaluate, develop and implement POC Reason for Consult: DETERMINE D/C PLANS; PATIENT WAS POSSIBLY AMBULATORY PRIOT TO ADMISSION; RIGHT BKA WITH PROSTHETIC; Does patient have active BEDREST order?: No Is patient medically & hemodynamically stable?: Yes 12/16/18 15:55 Consult to Cardiology [CONS] Routine Comment: Consulting Provider: Cardiology Janine Reason for Consult: A.fib with RVR, recommendation for medications. Call Completed: No 12/19/18 08:00 Consult to Dialysis [CONS] ONCE 12/20/18 08:37 Consult to Helper Teacher [CONS] Routine Reason for SW Consult: Please assist with dialysis chair time arrangements for Dialysis-dependent RANCHO. Thank you. 12/21/18 05:00 Consult to Interventional Radiology [CONS] Routine Consulting Provider: Radiology Interventional Cols Reason for Consult: Please evaluate for placement of a Permacath. Thank you Call Completed: No 12/21/18 07:00 Consult to Dialysis [CONS] ONCE 12/23/18 07:00 Consult to Dialysis [CONS] ONCE 12/25/18 07:30 Consult to Dialysis [CONS] ONCE Discharging clinician: Marcel Person - Constitutional Vitals: Temp Pulse Resp BP Pulse Ox 98.7 F 98 16 112/67 97 12/25/18 11:50 12/25/18 06:35 12/25/18 11:50 12/25/18 11:50 12/25/18 06:35 General appearance: Present: cooperative, A&O X 3 Exam: Physical examination: Gen.: Patient is alert and awake, , not in respiratory distress or pain HEENT: perrla , EOMI, no thyroid gland enlargement, no neck mass, supple neck Heart: S1 and S2 quita, normal sinus rhythm, no cardiac murmur no gallop rhythm Chest: Air entry equal bilaterally, decreased breathing bilaterally, no wheezing, crackles or crepitation Abdomen: Soft nontender nondistended positive bowel sounds, Extremities: No pitting edema, peripheral pulses palpable, no cyanosis tenderness, 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 Avoid nephrotoxic medication. Avoid Xarelto. Start taking Coumadin. INR check in next 3 days. - Diet and Activity Activity: as per physical therapy, increase activity as tolerated Diet: diabetic diet, low salt diet, other (renal diet)
--- NOTE | 2018-12-25 12:25 | Physician Discharge Referral ---
ExtendedCare Referral Info Transfer To: SNF Provider in Charge after Transfer: PCP - Diagnosis (1) Severe sepsis Priority: Primary Status: Resolved (2) Acute kidney injury superimposed on CKD Priority: Secondary Status: Acute (3) Atrial fibrillation Priority: Secondary Status: Chronic (4) Diabetes mellitus Priority: Secondary Status: Chronic (5) COPD (chronic obstructive pulmonary disease) Priority: Secondary Status: Chronic (6) Anemia Priority: Secondary Status: Acute Prognosis: Good - Transfer Medications Prescriptions: Warfarin perPT [Coumadin perPT] 2.5 mg PO DAILY@1800 14 Days #14 each Cefdinir [Omnicef] 300 mg PO QPM 4 Days #4 capsule Home Medications: Acetaminophen [Tylenol] 1,000 mg PO Q6HR PRN 11/30/18 [History] Cholecalciferol (Vitamin D3) [Vitamin D3] 1,000 unit PO DAILY 11/30/18 [History] Clopidogrel Bisulfate [Plavix] 75 mg PO DAILY 11/30/18 [History] Duloxetine HCl [Cymbalta] 60 mg PO DAILY 11/30/18 [History] Insulin ASPART [Novolog] 18 - 32 unit SQ TID 11/30/18 [History] Liraglutide [Victoza 2-Zaid] 1.2 mg SQ DAILY 11/30/18 [History] Loratadine [Claritin] 10 mg PO DAILY 11/30/18 [History] Metoprolol [Lopressor] 150 mg PO BID 11/30/18 [History] Multivitamin,Stress Formula [Stress Formula] 1 each PO DAILY 11/30/18 [History] Spironolactone [Aldactone] 25 mg PO DAILY 11/30/18 [History] Umeclidinium [place] [Incruse Ellipta] 1 puff IH DAILY 11/30/18 [History] amLODIPine [Norvasc] 5 mg PO DAILY 11/30/18 [History] Albuterol Sulfate [Ventolin Hfa] 2 puff IH BID 12/02/18 [History] Atorvastatin [Lipitor] 10 mg PO HS 12/02/18 [History] Fluticasone Propionate Nasal [Flonase] 1 spray NS DAILY 12/02/18 [History] Fluticasone/Salmeterol [Advair 250-50 Diskus] 1 puff IH BID 12/02/18 [History] Fluticasone/Vilanterol [Breo Ellipta 100-25 Mcg INH] 1 puff IH DAILY 12/02/18 [History] Insulin Glargine,Hum.rec.anlog [Basaglar Ochoaikpen U-100] 36 unit SQ BID 12/02/18 [History] Sertraline [Zoloft] 75 mg PO DAILY 12/02/18 [History] Vitamin B Complex/Vit C/Vit E [Stresstab] 1 tab PO DAILY 12/02/18 [History] Cefdinir [Omnicef] 300 mg PO QPM 4 Days #4 capsule 12/25/18 [Rx] Warfarin perPT [Coumadin perPT] 2.5 mg PO DAILY@1800 14 Days #14 each 12/25/18 [Rx] Allergies/Adverse Reactions: Allergy/AdvReac Type Severity Reaction Status Date / Time codeine Allergy See Verified 11/30/18 17:25 Comments latex Allergy See Verified 11/30/18 17:25 Comments Paroxetine [From Paxil] Allergy See Verified 11/30/18 17:25 Comments Penicillins Allergy See Verified 11/30/18 17:25 Comments - Respiratory Orders Smoking Cessation: Smoking cessation has been advised. For more information, call the [place] Tobacco Quit Line at 5-319-SWVM-NOW. - Ancillary Orders May use pressure relief devices daily prn - Advance Directives Code Status: DNR-Arrest - Mobility Orders Other (Unrelated as tolerated based on physical therapy.) - Rehabiliation Orders Rehab Orders: ROM Exercises, Evaluation for Physical Therapy, Evaluation for Occupational Therapy - Treatments Skin tear care topically daily PRN per policy - Diet Orders Renal, Cardiac CERTIFICATION: I certify that the transfer of the above named patient to an Extended Care Facility is necessary for the continuing treatment of the diagnosis listed. The above information is true and accurate reflection of patient's current condition. Confidential - Redisclosure prohibited without a patient's written consent.
[2018-12-25 12:48] VITALS: BP 127/51
--- NOTE | 2018-12-25 13:20 | Nephrology Progress Note ---
<Low Kaminski - Last Filed: 12/25/18 13:18> Date of Encounter: 12/25/18 Time of Encounter: 10:00 - Assessment and Plan (1) Acute kidney injury superimposed on CKD Status: Acute Minimal signs of renal recovery Creatinine 2.99 48 hours post dialysis, improving Remains oliguric, 350 mL yesterday Electrolytes stable, hypokalemia resolved PTH normal, vitamin D slightly low Hemoglobin stable, 9.4 yesterday, 9.5 today Iron profile: IronPaty Has received 5 rounds of Ferrlecit IV Patient will likely need EPO in the outpatient HD setting Permacath over right anterior chest wall functioning properly, dressing C/D/I Plan: -Patient stable for discharge at this time -Recommend resuming home diuretic with close outpatient follow-up -Patient will need outpatient HD and close observation for signs of renal recovery -Patient will need to continue avoiding nephrotoxins and her medications will need to be renally dosed -Additionally patient is encouraged to avoid excessive fluid intake and to monitor her daily weights (2) Oliguria Status: Acute Improving 1.6 L in last 72 hours Continue to monitor in the outpatient setting (3) Anemia Status: Acute Follow-up with PCP for improvement Will likely need EPO and outpatient HD setting Iron stores replenished during admission Qualifiers: Anemia type: iron deficiency Iron deficiency anemia type: unspecified iron deficiency Qualified Code(s): D50.9 - Iron deficiency anemia, unspecified Subjective Principal diagnosis: RANCHO Interval history: Patient seen and examined in dialysis unit. Patient denies any new complaints at this time. Patient is comfortable while on dialysis. Denies any pain, nausea, headache, vomiting, shortness breath, chest pain. Patient's fluid sta tus seems improved from yesterday. Lungs clear to auscultation. Patient underwent 1 round HD today. Labs look somewhat improved compared to prior post- dialytic periods. Urine output remains minimal low, 350 mL yesterday. Patient be discharged to SNF with outpatient HD, chair time set up in [place]. Objective - Vital Signs Vital signs: Vital Signs Temp Pulse Resp BP Pulse Ox 12/25/18 12:43 98.6 F 118 16 127/51 96 12/25/18 11:50 98.7 F 16 112/67 12/25/18 11:25 100/60 12/25/18 11:10 105/70 12/25/18 10:55 109/48 12/25/18 10:40 102/59 12/25/18 10:25 111/57 12/25/18 10:10 121/78 12/25/18 09:55 108/72 12/25/18 09:40 125/86 12/25/18 09:25 112/64 12/25/18 09:10 118/70 12/25/18 08:55 104/66 12/25/18 08:40 96/63 12/25/18 08:25 98.7 F 19 100/62 12/25/18 06:35 97.9 F 98 17 127/74 97 12/25/18 03:32 97.5 F L 82 19 117/73 93 12/25/18 00:06 97.8 F 91 18 99/64 98 12/24/18 22:00 19 93 12/24/18 19:27 98.3 F 92 19 113/56 98 12/24/18 16:34 16 92 12/24/18 16:27 97.6 F 90 17 130/85 92 Intake and Output 12/24/18 12/25/18 12/25/18 23:59 07:59 15:59 Intake Total 130.7 / 392.0 58 / 558 500 / 558 Output Total 325 / 2046 1721 / 2046 Balance 130.7 / 392.0 -267 / -1488 -1221 / -1488 Intake: IV Fluids 130.7 / 392.0 58 / 58 Heparin 25,000 UNIT/250 ML D5W 130.7 / 392.0 58 / 58 25,000 unit In 250 ml @ 14 UNIT /KG/HR 15.904 mls/hr IVC . [id number] [facility] Rx#:[id number] Oral 0 / 0 Intake, Rinseback and Flushes 500 / 500 Output: Urine 0 / 0 Total Dialysis (HD) Output 1721 / 1721 Catheter 325 / 325 Other: Blood Glucose* 103 124 110 Hemodialysis Net Fluid Removed 1221 (mL) - General Appearance Exam: Gen: A&Ox3, NAD. Vitals noted. Head: atraumatic normocephalic Eyes: anicteric sclera, EOMI ENT: Mucous Membranes dry, poor dentition Neck: trachea midline, temp dialysis catheter removed, dressing c/d/i CV: RRR, no murmurs gallops rubs Resp: CTA B, poor inspiratory effort, no wheezes or rhonchi noted Abd: soft, nontender, distended, obese Ext: No peripheral edema, venous stasis dermatitis of LLE noted, right BKA - Lab 12/25/18 03:25 12/25/18 03:25 Most recent lab results 12/25/18 03:25 Calcium 8.4 L Consult Discharge Plan - Plan Additional Instructions: Finish antibiotic course for remaining 4 days. Avoid nephrotoxic medication. Avoid Xarelto. Start taking Coumadin. INR check in next 3 days. Referrals: Kelly Cardozo CNP [Primary Care Provider] - (ECF) Prescriptions: Warfarin perPT [Coumadin perPT] 2.5 mg PO DAILY@1800 14 Days #14 each Cefdinir [Omnicef] 300 mg PO QPM 4 Days #4 capsule <Luan Moore G - Last Filed: 12/30/18 12:35> Date of Encounter: 12/25/18 - Assessment and Plan (1) Acute kidney injury superimposed on CKD Status: Acute I examined this patient and my medical decision-making was reviewed with the Resident Physician. I agree with the documented findings, disposition and treatment plan as described except to the extent set forth below. patient seen on dialysis (2) Sepsis Status: Deleted Qualifiers: Sepsis type: sepsis due to unspecified organism Qualified Code(s): A41.9 - Sepsis, unspecified organism; R65.20 - Severe sepsis without septic shock (3) Acute and chronic respiratory failure with hypoxia Status: Acute (4) Hydronephrosis Status: Acute Qualifiers: Hydronephrosis type: with ureteral calculous obstruction Qualified Code(s): N13.2 - Hydronephrosis with renal and ureteral calculous obstruction Objective - Lab 12/25/18 03:25 12/25/18 03:25
[2018-12-25] MEDS ORDERED: *HR* Warfarin 2 MG TABLET PO ONE (18:00)
== END 2018-12-25 15:02 | DRG 853 ==
LOC: 3ANU → SUATTDRO 12-01 00:03 → ICNU 12-01 05:45 → SUATTDRO 12-01 17:33 → 2ANU 12-15 16:59
PROVIDERS: ADMIT Internal Medicine; ATTEND Family Medicine
PROC: IRPERMA (2018-12-21 13:00)